=== PATIENT | male | born 1930 | race Caucasian/White ===

== ENCOUNTER 2016-08-11 21:21 | Inpatient (IN) | payer MEDICARE, BC ==
[2016-08-11] MEDS ORDERED: IBUPROFEN IV 600 MG in SODIUM CHLORIDE 0.9% 250 ML IV STA (22:08)
[2016-08-11] MEDS ORDERED: ACETAMINOPHEN TAB 500 MG TAB PO STA (22:08)
--- NOTE | 2016-08-11 22:13 | ED ---
General Adult HPI - General Chief complaint: Abdominal Pain Stated complaint: sent by Time Seen by Provider: 08/11/16 21:25 Source: patient, RN notes reviewed Mode of arrival: wheelchair Limitations: no limitations - History of Present Illness Initial comments: This is a 86-year-old male who presents emergency Department complaining of upper abdominal pain. Patient states he has past medical history significant for a liver abscess back in February. Patient states also when having the chills. Patient's family states she's been having some abdominal pain on and off over the last 5 days but as of yesterday and today it was too much for him to bear. Patient states she's not nauseated has had no vomiting. Patient denies any diarrhea. Patient denies any chest pain palpitations difficulty breathing or shortness of breath. Patient denies any recent cough. Patient denies headache patient denies numbness weakness patient denies any lightheadedness or dizziness. Patient denies any recent injury or trauma. - Related Data Home Medications Medication Instructions Recorded Confirmed Aspirin EC [Ecotrin Low Dose] 81 mg PO DAILY@0900 10/13/14 08/11/16 Cyanocobalamin [Vitamin B-12] 500 mcg PO DAILY@1200 10/13/14 08/11/16 Folic Acid 1 mg PO DAILY@1200 10/13/14 08/11/16 Lisinopril [Zestril] 5 mg PO DAILY 10/13/14 08/11/16 Omeprazole [PriLOSEC] 20 mg PO HS 10/13/14 08/11/16 Ubidecarenone [Co Q-10] 50 mg PO DAILY@1200 10/13/14 08/11/16 Dexter-3 Fatty Acids/Fish Oil [Fish 1 cap PO DAILY@1200 08/24/15 08/11/16 Oil 1,000 mg Softgel] Potassium Chloride ER [K-Dur 20] 20 meq PO DAILY 08/24/15 08/11/16 Levothyroxine Sodium [Synthroid] 75 mcg PO DAILY 02/21/16 08/11/16 metFORMIN HCL 1,000 mg PO DAILY@0900 02/21/16 08/11/16 Fluticasone Nasal [place] [Flonase 2 spray EA NOSTRIL DAILY PRN 03/25/16 08/11/16 Nasal [place]] Loratadine 10 mg PO DAILY@1200 03/25/16 08/11/16 Magnesium Oxide [Mag-Ox] 400 mg PO HS 03/25/16 08/11/16 Tamsulosin [Flomax] 0.4 mg PO HS 03/25/16 08/11/16 Ferrous Sulfate [Feosol] 325 mg PO HS 08/11/16 08/11/16 Gabapentin [Neurontin] 300 mg PO DAILY 08/11/16 08/11/16 Gabapentin [Neurontin] 600 mg PO HS 08/11/16 08/11/16 HYDROcodone/APAP 7.5-325MG [[place] 1 tab PO Q4H 08/11/16 08/11/16 7.5-325] Insulin Aspart [NovoLOG] See Protocol SQ BID 08/11/16 08/11/16 Insulin Glargine [Lantus] 30 unit SQ BID 08/11/16 08/11/16 Metoprolol Tartrate [Lopressor] 25 mg PO HS 08/11/16 08/11/16 Ubidecarenone [Co Q-10] 200 mg PO DAILY@1200 08/11/16 08/11/16 Previous Rx's Medication Instructions Recorded Furosemide [Lasix] 20 mg PO BID@0900,1600 tab 02/26/16 Allergies Allergy/AdvReac Type Severity Reaction Status Date / Time [id number]-Mnt Reductase AdvReac Unknown leg cramps Verified 08/11/16 21:41 Inhibitor Iodinated Contrast Media - AdvReac Unknown Verified 08/11/16 21:41 Oral and [Iodinated Contrast Media - IV Dye] Review of Systems ROS Statement: Those systems with pertinent positive or pertinent negative responses have been documented in the HPI. ROS Other: All systems not noted in ROS Statement are negative. Past Medical History Past Medical History: Cancer, Diabetes Mellitus, GERD/Reflux, Hyperlipidemia, Hypertension, Musculoskeletal Disorder, Osteoarthritis (OA), Sleep Apnea/CPAP/ BIPAP, Thyroid Disorder Additional Past Medical History / Comment(s): C-PAP MACHINE, ENVIRONMENTAL ALLERGIES, HX OF JAUNDICE AT 11 YRS OLD, HX OF MALARIA, BACK PAIN, SKIN CANCER , STATES HERNIA RIGHT GROIN THAT HE PRESSES ON WHEN HE COUGHS., STATES SWELLING IN LEGS AND FEET AND LLE HAS RED AREA. , ANEMIA, USES CANE, STREP THROAT History of Any Multi-Drug Resistant Organisms: None Reported Past Surgical History: Appendectomy, Cholecystectomy, Hernia Repair, Tonsillectomy Additional Past Surgical History / Comment(s): CATARACTS WITH LENS IMPLANT, SKIN CANCER SURG. Past Anesthesia/Blood Transfusion Reactions: No Reported Reaction Past Psychological History: Anxiety, Depression Additional Psychological History / Comment(s): treated for anxiety @ [facility] Smoking Status: Former smoker Past Alcohol Use History: None Reported Additional Past Alcohol Use History / Comment(s): SMOKED FOR APPROX 19 YEARS. 1PPD. QUIT SMOKING AT AGE 34. Past Drug Use History: None Reported - Past Family History Mother Family Medical History: No Reported History Additional Family Medical History / Comment(s): LEUKEMIA Father Additional Family Medical History / Comment(s): WOUNDED IN WW1, MULTIPLE INJURES -LIVED TILL AGE 89 General Exam - General Exam Comments Initial Comments: GENERAL: Patient is well-developed and well-nourished. Patient is nontoxic and well- hydrated and is in mild distress. ENT: Neck is soft and supple. No significant lymphadenopathy is noted. Oropharynx is clear. Moist mucous membranes. Neck has full range of motion without eliciting any pain. EYES: The sclera were anicteric and conjunctiva were pink and moist. Extraocular movements were intact and pupils were equal round and reactive to light. Eyelids were unremarkable. PULMONARY: Unlabored respirations. Good breath sounds bilaterally. No audible rales rhonchi or wheezing was noted. CARDIOVASCULAR: There is a regular rate and rhythm without any murmurs gallops or rubs. Femoral pulses are equal bilaterally ABDOMEN: Mild epigastric tenderness No palpable organomegaly was noted. There is no palpable pulsatile mass. SKIN: Skin is clear with no lesions or rashes and otherwise unremarkable. NEUROLOGIC: Patient is alert and oriented x3. Cranial nerves II through XII are grossly intact. Motor and sensory are also intact. Normal speech, volume and content. Symmetrical smile. MUSCULOSKELETAL: Normal extremities with adequate strength and full range of motion. Bilateral edema. LYMPHATICS: No significant lymphadenopathy is noted PSYCHIATRIC: Normal psychiatric evaluation. Limitations: no limitations Course Vital Signs 08/11/16 08/11/16 08/11/16 21:25 22:08 23:06 Temperature 97.5 F L 101.4 F H 100.1 F H Pulse Rate 101 H 68 82 Respiratory 18 18 18 Rate Blood Pressure 164/75 168/74 133/68 O2 Sat by Pulse 100 98 99 Oximetry Medical Decision Making - Medical Decision Making EKG shows ventricular paced rhythm at 160 bpm QRS 76 QT interval 350 QTC is 585. I spoke with Dr. Hardy he wanted the patient admitted on antibiotics and he wanted to have infectious disease consult. - Lab Data Result diagrams: 08/11/16 22:00 08/11/16 22:00 Lab Results 08/11/16 08/11/16 08/11/16 Range/Units 22:00 22:00 22:00 WBC 9.9 (3.8-10.6) k/uL RBC 3.72 L (4.30-5.90) m/uL Hgb 11.2 L (13.0-17.5) gm/dL Hct 34.8 L (39.0-53.0) % MCV 93.6 (80.0-100.0) fL MCH 30.0 (25.0-35.0) pg MCHC 32.1 (31.0-37.0) g/dL RDW 13.2 (11.5-15.5) % Plt Count 218 (150-450) k/uL Neutrophils % 76 % Lymphocytes % 14 % Monocytes % 7 % Eosinophils % 1 % Basophils % 0 % Neutrophils # 7.5 (1.3-7.7) k/uL Lymphocytes # 1.4 (1.0-4.8) k/uL Monocytes # 0.7 (0-1.0) k/uL Eosinophils # 0.1 (0-0.7) k/uL Basophils # 0.0 (0-0.2) k/uL PT (9.0-12.0) sec INR (<1.1) APTT (22.0-30.0) sec Sodium 136 L (137-145) mmol/L Potassium 5.0 (3.5-5.1) mmol/L Chloride 96 L (98-107) mmol/L Carbon Dioxide 29 (22-30) mmol/L Anion Gap 11 mmol/L BUN 22 H (9-20) mg/dL Creatinine 1.20 (0.66-1.25) mg/dL Est GFR (MDRD) Af Amer >60 (>60 ml/min/1.73 sqM) Est GFR (MDRD) Non-Af 57 (>60 ml/min/1.73 sqM) Glucose 288 H (74-99) mg/dL Plasma Lactic Acid [place] (0.7-2.0) mmol/L Calcium 9.3 (8.4-10.2) mg/dL Total Bilirubin 1.1 (0.2-1.3) mg/dL AST 46 (17-59) U/L ALT 57 (21-72) U/L Alkaline Phosphatase 167 H (38-126) U/L Total Creatine Kinase 49 L (55-170) U/L CK-MB (CK-2) 1.1 (0.0-2.4) ng/mL CK-MB (CK-2) Rel Index 2.2 Troponin I <0.012 (0.000-0.034) ng/mL Total Protein 7.7 (6.3-8.2) g/dL Albumin 3.8 (3.5-5.0) g/dL Cortisol 21 ug/dL Urine Color Urine Appearance (Clear) Urine pH (5.0-8.0) Ur Specific [place] (1.001-1.035) Urine Protein (Negative) Urine Glucose (UA) (Negative) Urine Ketones (Negative) Urine Blood (Negative) Urine Nitrate (Negative) Urine Bilirubin (Negative) Urine Urobilinogen (<2.0) mg/dL Ur Leukocyte Esterase (Negative) Influenza Type A RNA (Not Detectd) Influenza Type B (PCR) (Not Detectd) 08/11/16 08/11/16 08/11/16 Range/Units 22:00 22:00 22:00 WBC (3.8-10.6) k/uL RBC (4.30-5.90) m/uL Hgb (13.0-17.5) gm/dL Hct (39.0-53.0) % MCV (80.0-100.0) fL MCH (25.0-35.0) pg MCHC (31.0-37.0) g/dL RDW (11.5-15.5) % Plt Count (150-450) k/uL Neutrophils % % Lymphocytes % % Monocytes % % Eosinophils % % Basophils % % Neutrophils # (1.3-7.7) k/uL Lymphocytes # (1.0-4.8) k/uL Monocytes # (0-1.0) k/uL Eosinophils # (0-0.7) k/uL Basophils # (0-0.2) k/uL PT (9.0-12.0) sec INR (<1.1) APTT (22.0-30.0) sec Sodium (137-145) mmol/L Potassium (3.5-5.1) mmol/L Chloride (98-107) mmol/L Carbon Dioxide (22-30) mmol/L Anion Gap mmol/L BUN (9-20) mg/dL Creatinine (0.66-1.25) mg/dL Est GFR (MDRD) Af Amer (>60 ml/min/1.73 sqM) Est GFR (MDRD) Non-Af (>60 ml/min/1.73 sqM) Glucose (74-99) mg/dL Plasma Lactic Acid [place] 1.5 (0.7-2.0) mmol/L Calcium (8.4-10.2) mg/dL Total Bilirubin (0.2-1.3) mg/dL AST (17-59) U/L ALT (21-72) U/L Alkaline Phosphatase (38-126) U/L Total Creatine Kinase (55-170) U/L CK-MB (CK-2) (0.0-2.4) ng/mL CK-MB (CK-2) Rel Index Troponin I (0.000-0.034) ng/mL Total Protein (6.3-8.2) g/dL Albumin (3.5-5.0) g/dL Cortisol ug/dL Urine Color Light Yellow Urine Appearance Clear (Clear) Urine pH 5.0 (5.0-8.0) Ur Specific [place] 1.007 (1.001-1.035) Urine Protein Negative (Negative) Urine Glucose (UA) 3+ H (Negative) Urine Ketones Negative (Negative) Urine Blood Negative (Negative) Urine Nitrate Negative (Negative) Urine Bilirubin Negative (Negative) Urine Urobilinogen <2.0 (<2.0) mg/dL Ur Leukocyte Esterase Negative (Negative) Influenza Type A RNA Not Detected (Not Detectd) Influenza Type B (PCR) Not Detected (Not Detectd) 08/11/16 Range/Units 23:02 WBC (3.8-10.6) k/uL RBC (4.30-5.90) m/uL Hgb (13.0-17.5) gm/dL Hct (39.0-53.0) % MCV (80.0-100.0) fL MCH (25.0-35.0) pg MCHC (31.0-37.0) g/dL RDW (11.5-15.5) % Plt Count (150-450) k/uL Neutrophils % % Lymphocytes % % Monocytes % % Eosinophils % % Basophils % % Neutrophils # (1.3-7.7) k/uL Lymphocytes # (1.0-4.8) k/uL Monocytes # (0-1.0) k/uL Eosinophils # (0-0.7) k/uL Basophils # (0-0.2) k/uL PT 10.4 (9.0-12.0) sec INR 1.0 (<1.1) APTT 24.2 (22.0-30.0) sec Sodium (137-145) mmol/L Potassium (3.5-5.1) mmol/L Chloride (98-107) mmol/L Carbon Dioxide (22-30) mmol/L Anion Gap mmol/L BUN (9-20) mg/dL Creatinine (0.66-1.25) mg/dL Est GFR (MDRD) Af Amer (>60 ml/min/1.73 sqM) Est GFR (MDRD) Non-Af (>60 ml/min/1.73 sqM) Glucose (74-99) mg/dL Plasma Lactic Acid [place] (0.7-2.0) mmol/L Calcium (8.4-10.2) mg/dL Total Bilirubin (0.2-1.3) mg/dL AST (17-59) U/L ALT (21-72) U/L Alkaline Phosphatase (38-126) U/L Total Creatine Kinase (55-170) U/L CK-MB (CK-2) (0.0-2.4) ng/mL CK-MB (CK-2) Rel Index Troponin I (0.000-0.034) ng/mL Total Protein (6.3-8.2) g/dL Albumin (3.5-5.0) g/dL Cortisol ug/dL Urine Color Urine Appearance (Clear) Urine pH (5.0-8.0) Ur Specific [place] (1.001-1.035) Urine Protein (Negative) Urine Glucose (UA) (Negative) Urine Ketones (Negative) Urine Blood (Negative) Urine Nitrate (Negative) Urine Bilirubin (Negative) Urine Urobilinogen (<2.0) mg/dL Ur Leukocyte Esterase (Negative) Influenza Type A RNA (Not Detectd) Influenza Type B (PCR) (Not Detectd) Disposition Clinical Impression: Febrile illness, Epigastric abdominal pain Disposition: ADMITTED IP TO THIS [facility] Time of Disposition: 23:31
[2016-08-11 22:24] LABS: Appearance,Urine Clear (Clear); Basophils % (A) 0 %; Bilirubin,Urine Negative (Negative); CH 30.2; CHCM 32.4; Eosinophils # (A) 0.1 k/uL (0-0.7); Eosinophils % (A) 1 %; Glucose,Urine (UA) 3+ (Negative); HCT 34.8 % (39.0-53.0); HDW 2.43; HGB 11.2 gm/dL (13.0-17.5); Ketones,Urine Negative (Negative); Leukocyte Esterase,Urine Negative (Negative); Luc # (Auto) 0.11; Luc % (Auto) 1; Lymphocytes # (A) 1.4 k/uL (1.0-4.8); Lymphocytes % (A) 14 %; MCHC 32.1 g/dL (31.0-37.0); MCV 93.6 fL (80.0-100.0); Mean Platelet Volume 6.8; Monocytes # (A) 0.7 k/uL (0-1.0); Monocytes % (A) 7 %; Neutrophils # (A) 7.5 k/uL (1.3-7.7); Neutrophils % (A) 76 %; Nitrite,Urine Negative (Negative); Protein,Urine Negative (Negative); RBC 3.72 m/uL (4.30-5.90); RDW 13.2 % (11.5-15.5); Specific Gravity,Urine 1.007 (1.001-1.035); UA Billing (MACRO vs. MICRO) CHEM; Urobilinogen,Urine <2.0 mg/dL (<2.0); WBC 9.9 k/uL (3.8-10.6); WBC (Perox) 9.93
[2016-08-11] MEDS: SODIUM CHLORIDE 0.9% 500 ML IV SCH ×2 (22:30→23:00)
[2016-08-11 22:34] LABS: ALT 57 U/L (21-72); AST 46 U/L (17-59); Alkaline Phosphatase 167 U/L (38-126); Anion Gap 11 mmol/L; Blood Urea Nitrogen 22 mg/dL (9-20); Calcium 9.3 mg/dL (8.4-10.2); Carbon Dioxide 29 mmol/L (22-30); Chloride 96 mmol/L (98-107); Glucose 288 mg/dL (74-99); Non-African American GFR(MDRD) 57 (>60 ml/min/1.73 sqM); Sodium 136 mmol/L (137-145); Total Bilirubin 1.1 mg/dL (0.2-1.3); Total Protein 7.7 g/dL (6.3-8.2)
[2016-08-11 22:44] LABS: Creatine Kinase 49 U/L (55-170)
[2016-08-11 22:56] LABS: Creatine Kinase MB 1.1 ng/mL (0.0-2.4); Troponin I <0.012 ng/mL (0.000-0.034)
[2016-08-11 23:18] LABS: Partial Thromboplastin Time 24.2 sec (22.0-30.0); Prothrombin Time 10.4 sec (9.0-12.0)
[2016-08-11] MEDS ORDERED: PIPERACILLIN-TAZOBACTAM 3.375 GM in DEXTROSE/WATER 1 50ML.BAG IVPB STA (23:32)
[2016-08-11] MEDS ORDERED: SODIUM CHLORIDE 0.9% 1,000 ML IV ONE (23:36)
--- NOTE | 2016-08-11 23:55 | XR ---
EXAMINATION TYPE: XR chest 2V DATE OF EXAM: 08/11/2016 10:46 PM COMPARISON: 03/25/2016 HISTORY: Fever history of pacemaker. TECHNIQUE: Frontal and lateral views of the chest are obtained. FINDINGS: Mild pulmonary vascular congestion and chronic lung changes are suggested again without significant i nterval change. No focal pneumonia is noted. There is no pneumothorax or pleural effusion. There is mild cardiomegaly and left-sided pacemaker.. The osseous structures are intact. IMPRESSION: 1. No focal lung consolidation or pneumonia. 2. Chronic lung changes. No significant interval change.
[2016-08-12 00:43] VITALS: BMI 32.8
[2016-08-12] MEDS ORDERED: ACETAMINOPHEN TAB 325 MG TAB PO PRN (01:20)
[2016-08-12] MEDS: HYDROcodone/APAP 7.5-325MG 1 EACH TAB PO PRN ×3 (05:03→21:31)
[2016-08-12 07:22] LABS: Glucose,Whole Blood 164 mg/dL (75-99)
[2016-08-12 07:36] LABS: Hemoglobin A1C 9.7 % (4.2-6.1)
[2016-08-12] MEDS: INSULIN LISPRO (humaLOG) 300 UNIT/3 ML VIAL SQ SCH ×4 (08:00→21:27)
[2016-08-12] MEDS: metFORMIN 500 MG TAB PO SCH (08:00)
[2016-08-12] MEDS: LISINOPRIL 5 MG TAB PO SCH (08:00)
[2016-08-12] MEDS: FUROSEMIDE 20 MG TAB PO SCH ×2 (08:00→15:38)
[2016-08-12] MEDS: GABAPENTIN 300 MG CAP PO SCH ×3 (08:01→21:48)
[2016-08-12] MEDS: POTASSIUM CHLORIDE ER 20 MEQ TAB.ER PO SCH (08:01)
[2016-08-12] MEDS: ASPIRIN 81 MG CHEW PO SCH (08:01)
[2016-08-12] MEDS: LEVOTHYROXINE 75 MCG TAB PO SCH (08:03)
[2016-08-12] MEDS: PIPERACILLIN-TAZOBACTAM 3.375 GM in DEXTROSE/WATER 1 50ML.BAG IVPB SCH ×3 (08:29→23:32)
[2016-08-12] MEDS: INSULIN GLARGINE 100 UNIT/ML 10 ML VIAL SQ SCH ×2 (08:29→21:26)
[2016-08-12] MEDS ORDERED: IOHEXOL 350 MG/ML 25 ML BOTTLE (ORAL USE) PO PRN (09:02)
[2016-08-12] MEDS ORDERED: RX INFO: IV CONTRAST WAS GIVEN 1 EACH MISC MISCELLANE PRN ×2 (09:02→09:22)
[2016-08-12] MEDS ORDERED: MORPHINE SULFATE 2 MG/ML SYRINGE IVP PRN (09:08)
[2016-08-12] MEDS ORDERED: ONDANSETRON 4 MG/2 ML VIAL IVP PRN (09:21)
[2016-08-12] MEDS ORDERED: FAMOTIDINE 20 MG/2 ML VIAL IV ONE (09:41)
[2016-08-12] MEDS ORDERED: methylPREDNISolone SOD SUCCI 125 MG/2 ML VIAL IV ONE (09:41)
[2016-08-12] MEDS ORDERED: diphenhydrAMINE 50 MG/ML 1 ML VIAL IVP ONE (09:41)
--- NOTE | 2016-08-12 09:51 | P.PN ---
Subjective 86-year-old male presented on the day of admission to the emergency room on August 11 with a chief complaint of developing upper abdominal pain. Patient stated the pain he points to the epigastric region had been ongoing for the past several days but over the last 24 hours became too intense could not bear the pain was interfering with activities of daily living. Patient stated he had a nausea sensation but no active emesis. Denied any change in bowel habits denied any loose stools blood in stool or constipation issues. Additionally patient denied any heart palpitations chest pain or shortness of breath. Patient denied any recent illness. Denied any recent trauma. Patient stated that his symptoms feel similar to when he was told he had an abscess in his liver in February 2016 patient is a poor historian did note the liver enzymes are not markedly elevated the AST is 46 ALT 57 alk phos 167. In the total bili 1.1. The white count 9. Patient does report having a nausea sensation there is no active emesis. Did review the report 02/23/2016 the CAT scan with oral contrast did show a low density liver mass slightly smaller compared to a prior exam patient states he has not been hospitalized recently. His last hospitalization was in February 2016 at that time patient was treated for generalized weakness. Additionally on 02/24/2016 the patient did have a percutaneous drainage and biopsy of the left lobe of the liver Currently the patient is sitting up on the edge of the bed is indicating that he is having "a lot of pain in the epigastric area when he had pain makes my handshake patient is having visual shaking noted to the hands bilaterally patient states when he gets and pain causes his hands to shake. Questioned patient about his iodine reaction patient states it causes his hands to shake Gastroneurology consultation an infectious disease consultation has been requested Objective - Vital Signs Vital signs: Vital Signs Temp 97.7 F 08/12/16 01:05 Pulse 67 08/12/16 01:05 Resp 16 08/12/16 01:05 BP 126/53 08/12/16 01:05 Pulse Ox 98 08/12/16 01:05 Intake & Output 08/11/16 08/12/16 08/12/16 18:59 06:59 18:59 Weight 109.7 kg Other: Voiding Method Toilet # Voids 1 - Exam Physical exam 86-year-old male sitting on the edge of the bed with hands are trembling patient states having "pain in my abdomen points to the epigastric area causes my hands to tremor reports a sensation of nausea no active emesis oriented 3 awake and alert Lungs diminished at the bases otherwise adequate air movement sats 99% on room air Heart S1-S2 audible and regular currently denying heart palpitations or chest pain Abdomen soft not distended diffuse tenderness across the abdominal wall reports nausea sensation no active emesis no stooling no difficulty in urinating Extremities no edema noted - Labs CBC & Chem 7: 08/11/16 22:00 08/11/16 22:00 Labs: Abnormal Lab Results - Last 24 Hours (Table) 08/12/16 Range/Units 07:20 POC Glucose (mg/dL) 164 H (75-99) mg/dL Assessment and Plan Plan: Impression Present on admission febrile temp 101.4 with mild leukocytosis unclear etiology Present on admission epigastric pain with nausea febrile leukocytosis unclear etiology History of a liver abscess status post percutaneous drainage and biopsy left lobe of the liver for hepatic lesion done 02/24/2016 Chronically debilitated with gait imbalance Cognitive impairment suspect dementia duration undetermined with no behavior disturbance History of sleep apnea with CPAP support Chronic back pain narcotic dependent Chronic lower back pain Anxiety disorder nonspecified Obesity BMI 32 Type 2 diabetes insulin requiring uncontrolled hemoglobin A1c 9.7 History of Klebsiella pneumonia bacteremia February 2016 resolved Plan Consult gastroenterology service Consult Dr. Walters recommendations antibiotic Resume home meds as appropriate CAT scan with oral and IV contrast abdomen and pelvis as part of the workup for hepatic lesion rule out abscess Follow up on blood and urine cultures Continue IV antibiotics until seen by infectious disease DVT and GI prophylaxis Pain control IV fluid as ordered Zofran as needed The above dictated assessment and findings were discussed with dr erazo Impression and the plan of care have been dictated as directed. Adore Hightower nurse practitioner acting as a scribe for dr erazo
[2016-08-12] MEDS: FLUTICASONE 50MCG/SPRAY NASAL 16GM EA NOSTRIL PRN (10:10)
[2016-08-12] MEDS: ALPRAZolam 0.5 MG TAB PO PRN ×2 (10:11→21:26)
[2016-08-12 11:05] LABS: Basophils % (A) 0 %; CH 30.3; CHCM 32.4; Eosinophils % (A) 0 %; HDW 2.39; HGB 10.6 gm/dL (13.0-17.5); Luc # (Auto) 0.11; Luc % (Auto) 1; Lymphocytes # (A) 0.8 k/uL (1.0-4.8); Lymphocytes % (A) 7 %; MCH 30.1 pg (25.0-35.0); MCHC 32.1 g/dL (31.0-37.0); MCV 93.8 fL (80.0-100.0); Mean Platelet Volume 6.5; Monocytes % (A) 9 %; Neutrophils # (A) 9.3 k/uL (1.3-7.7); Neutrophils % (A) 82 %; RBC 3.52 m/uL (4.30-5.90); RDW 13.3 % (11.5-15.5); WBC 11.2 k/uL (3.8-10.6); WBC (Perox) 12.13
[2016-08-12] MEDS: HEPARIN SODIUM,PORCINE 5,000 UNIT/ML 1 ML VIAL SQ SCH ×3 (11:14→23:29)
[2016-08-12] MEDS: FAMOTIDINE 20 MG/2 ML VIAL IV SCH ×2 (11:15→22:09)
[2016-08-12 11:16] LABS: ALT 59 U/L (21-72); AST 40 U/L (17-59); Alkaline Phosphatase 151 U/L (38-126); Amylase <30 U/L (30-110); Anion Gap 9 mmol/L; Blood Urea Nitrogen 19 mg/dL (9-20); Calcium 8.7 mg/dL (8.4-10.2); Carbon Dioxide 27 mmol/L (22-30); Chloride 101 mmol/L (98-107); Glucose 160 mg/dL (74-99); Non-African American GFR(MDRD) >60 (>60 ml/min/1.73 sqM); Potassium 4.6 mmol/L (3.5-5.1); Sodium 137 mmol/L (137-145); Total Bilirubin 2.2 mg/dL (0.2-1.3); Total Protein 6.6 g/dL (6.3-8.2)
--- NOTE | 2016-08-12 11:55 | P.CONS ---
History of Present Illness - Reason for Consult Consult date: 08/12/16 possible liver abscess Requesting physician: Lazaro Bailey - History of Present Illness 86-year-old gentleman patient Dr. Bailey with a past medical history of malaria, skin carcinoma, cholelithiasis status post cholecystectomy, open ventral hernia repair, diabetes mellitus, hypertension, appendectomy, sleep apnea, anxiety, and depression. Admitted with fever T-max 101.4. Patient was hospitalized in February 2016 for suspected Klebsiella left hepatic lobe liver abscess treated with antibiotics and percutaneous intervention was not performed at that time. He was hospitalized at [facility] prior to that admission with gram-negative Klebsiella bacteremia. Consultation requested for possible liver abscess. No abdominal imaging to review at time of this dictation. LFTs within normal limits on admission. Currently total bilirubin 2.2. AST 40. ALT 59. Alkaline phosphates 151. Lipase 26. White count 9.9 on admission currently 11.2. Reports mild abdominal discomfort in the midepigastric right upper quadrant region. Denies chest pain or shortness of breath. Review of Systems Constitutional: Denies fever, chills, sweats, weight gain, or loss. HEENT: Negative for migraines, blurred vision or loss, earaches, drainage, tinnitus, oral mucosal lesions, dysphagia, or odynophagia. Cardiac: Hypertension. Hyperlipidemia. Negative for chest pain, arrhythmias, or palpitation. Respiratory: Negative for shortness of breath, hemoptysis, cough, or sputum production. Gastrointestinal: See HPI for pertinent findings. Genitourinary: Negative for hematuria, urgency, frequency, polyuria, dysuria, or penile discharge. Musculoskeletal: Negative for muscle aches, swelling, arthritis, and arthralgias. Neurologic: Negative for stroke or TIA. Endocrine: Diabetes mellitus. Negative for thyroid problems. Skin: Negative for rash or itching. Skin carcinoma. Psychiatric: History for depression and anxiety. Hematology: Malaria. All systems: negative (See HPI) Past Medical History Past Medical History: Cancer, Diabetes Mellitus, GERD/Reflux, Hyperlipidemia, Hypertension, Musculoskeletal Disorder, Osteoarthritis (OA), Sleep Apnea/CPAP/ BIPAP, Thyroid Disorder Additional Past Medical History / Comment(s): C-PAP MACHINE, ENVIRONMENTAL ALLERGIES, HX OF JAUNDICE AT 11 YRS OLD, HX OF MALARIA, BACK PAIN, SKIN CANCER , STATES HERNIA RIGHT GROIN THAT HE PRESSES ON WHEN HE COUGHS., STATES SWELLING IN LEGS AND FEET AND LLE HAS RED AREA. , ANEMIA, USES CANE, STREP THROAT History of Any Multi-Drug Resistant Organisms: None Reported Past Surgical History: Appendectomy, Cholecystectomy, Hernia Repair, Tonsillectomy Additional Past Surgical History / Comment(s): CATARACTS WITH LENS IMPLANT, SKIN CANCER SURG. Past Anesthesia/Blood Transfusion Reactions: No Reported Reaction Past Psychological History: Anxiety, Depression Additional Psychological History / Comment(s): treated for anxiety @ [facility] Smoking Status: Former smoker Past Alcohol Use History: None Reported Additional Past Alcohol Use History / Comment(s): SMOKED FOR APPROX 19 YEARS. 1PPD. QUIT SMOKING AT AGE 34. Past Drug Use History: None Reported - Past Family History Mother Family Medical History: No Reported History Additional Family Medical History / Comment(s): LEUKEMIA Father Additional Family Medical History / Comment(s): WOUNDED IN WW1, MULTIPLE INJURES -LIVED TILL AGE 89 Medications and Allergies Home Medications Medication Instructions Recorded Confirmed Type Aspirin EC [Ecotrin Low Dose] 81 mg PO DAILY@0900 10/13/14 08/11/16 History Cyanocobalamin [Vitamin B-12] 500 mcg PO DAILY@1200 10/13/14 08/11/16 History Folic Acid 1 mg PO DAILY@1200 10/13/14 08/11/16 History Lisinopril [Zestril] 5 mg PO DAILY 10/13/14 08/11/16 History Omeprazole [PriLOSEC] 20 mg PO HS 10/13/14 08/11/16 History Ubidecarenone [Co Q-10] 50 mg PO DAILY@1200 10/13/14 08/11/16 History Raymond-3 Fatty Acids/Fish Oil [Fish 1 cap PO DAILY@1200 08/24/15 08/11/16 History Oil 1,000 mg Softgel] Potassium Chloride ER [K-Dur 20] 20 meq PO DAILY 08/24/15 08/11/16 History Levothyroxine Sodium [Synthroid] 75 mcg PO DAILY 02/21/16 08/11/16 History metFORMIN HCL 1,000 mg PO DAILY@0900 02/21/16 08/11/16 History Fluticasone Nasal [place] [Flonase 2 spray EA NOSTRIL DAILY PRN 03/25/16 08/11/16 History Nasal [place]] Loratadine 10 mg PO DAILY@1200 03/25/16 08/11/16 History Magnesium Oxide [Mag-Ox] 400 mg PO HS 03/25/16 08/11/16 History Tamsulosin [Flomax] 0.4 mg PO HS 03/25/16 08/11/16 History Ferrous Sulfate [Feosol] 325 mg PO HS 08/11/16 08/11/16 History Gabapentin [Neurontin] 300 mg PO DAILY 08/11/16 08/11/16 History Gabapentin [Neurontin] 600 mg PO HS 08/11/16 08/11/16 History HYDROcodone/APAP 7.5-325MG [[place] 1 tab PO Q4H 08/11/16 08/11/16 History 7.5-325] Insulin Aspart [NovoLOG] See Protocol SQ BID 08/11/16 08/11/16 History Insulin Glargine [Lantus] 30 unit SQ BID 08/11/16 08/11/16 History Metoprolol Tartrate [Lopressor] 25 mg PO HS 08/11/16 08/11/16 History Ubidecarenone [Co Q-10] 200 mg PO DAILY@1200 08/11/16 08/11/16 History Allergies Allergy/AdvReac Type Severity Reaction Status Date / Time Chwbicp-Pop-Qub Reductase AdvReac Unknown leg cramps Verified 08/12/16 00:52 Inhibitor Iodinated Contrast Media - AdvReac Unknown Verified 08/12/16 00:52 Oral and [Iodinated Contrast Media - IV Dye] Physical Exam Vitals: Vital Signs Temp Pulse Pulse Resp BP BP Pulse Ox 08/12/16 07:00 97 F L 87 18 147/58 99 08/12/16 01:05 97.7 F 67 16 126/53 98 08/11/16 23:49 99.4 F 70 18 103/51 98 Intake and Output 08/11/16 08/12/16 08/12/16 22:59 06:59 14:59 Other: Voiding Method Toilet # Voids 1 Weight 109.7 kg General appearance: The patient is alert, oriented, in no acute distress. HET: Head is normocephalic and atraumatic. Bandaged to head without drainage. Pupils are equal and reactive. Oropharynx is clear without lesions. Neck: Supple without lymphadenopathy. Trachea midline. Heart: S1 S2. Regular rate and rhythm. Lungs: No crackles or wheezes are heard. Abdomen: Soft, mild tenderness midepigastric right upper quadrant, nondistended with bowel sounds. No peritoneal signs. No palpable organomegaly or masses. Extremities: Normal skin color and turgor. No cyanosis, rash, ulceration, clubbing, or edema. Radial and pedal pulses are 2/4 bilaterally. Neurological: No focal deficits. Strength and sensation are grossly intact. Results CBC & Chem 7: 08/12/16 10:22 08/12/16 10:22 Labs: Abnormal Lab Results - Last 24 Hours (Table) 08/12/16 08/12/16 08/12/16 Range/Units 07:20 10:22 10:22 WBC 11.2 H (3.8-10.6) k/uL RBC 3.52 L (4.30-5.90) m/uL Hgb 10.6 L (13.0-17.5) gm/dL Hct 33.0 L (39.0-53.0) % Neutrophils # 9.3 H (1.3-7.7) k/uL Lymphocytes # 0.8 L (1.0-4.8) k/uL Glucose 160 H (74-99) mg/dL POC Glucose (mg/dL) 164 H (75-99) mg/dL Total Bilirubin 2.2 H (0.2-1.3) mg/dL Alkaline Phosphatase 151 H (38-126) U/L Albumin 3.2 L (3.5-5.0) g/dL Amylase <30 L (30-110) U/L CT scan - abdomen: pending CT scan - pelvis: pending Assessment and Plan (1) Pyrexia Narrative/Plan: 86-year-old gentleman with a history of left hepatic lobe liver abscess February 2016 presents with pyrexia, midepigastric right upper quadrant discomfort with elevation of liver enzymes and hyperbilirubinemia possible recurrence of liver abscess however other pathology cannot be entirely excluded. Status: Acute Plan: 1. CT abdomen and pelvis scheduled at 4:00pm. 2. Infectious disease consultation with IV antibiotics. Blood cultures. 3. Monitoring of liver chemistries. Hepatitis panel. 4. Will follow with you. Thank you for this kind referral and the opportunity to participate in the care of your patient. This consultation was discussed with Dr. Stapleton. The impression and plan of care have been directed as dictated.
[2016-08-12] MEDS ORDERED: NON-FORMULARY DRUG (Ubidecarenone [Co Q-10] 50 MG) PO SCH (12:00)
[2016-08-12] MEDS ORDERED: NON-FORMULARY DRUG (Omega-3 Fatty Acids/Fish Oil [Fish Oil 1,000 Mg Softgel] 1 CAP) PO SCH (12:00)
[2016-08-12] MEDS ORDERED: NON-FORMULARY DRUG (Ubidecarenone [Co Q-10] 200 MG) PO SCH (12:00)
[2016-08-12] MEDS: CYANOCOBALAMIN 500 MCG TAB PO SCH (12:10)
[2016-08-12] MEDS: LORATADINE 10 MG TAB PO SCH (12:10)
[2016-08-12] MEDS: FOLIC ACID 1 MG TAB PO SCH (12:10)
[2016-08-12] MEDS: BARIUM SULFATE 450 ML ORAL.SUSP BOTTLE PO PRN ×2 (12:12→15:04)
[2016-08-12 12:19] LABS: Glucose,Whole Blood 197 mg/dL (75-99)
[2016-08-12 14:25] LABS: Hepatitis B Surface Ag Index 0.05
[2016-08-12 14:30] LABS: Hepatitis B Core IgM Index 0.04
[2016-08-12 14:42] LABS: Hepatitis C Virus IgG Index 0.11
[2016-08-12 14:48] LABS: Hepatitis C Virus IgG Ab Negative (Negative)
--- NOTE | 2016-08-12 16:41 | CT ---
EXAMINATION TYPE: CT abdomen pelvis w con DATE OF EXAM: 08/12/2016 4:30 PM COMPARISON: 03/25/2016 HISTORY: Evaluate liver abscess. Generalized abdominal pain CT DLP: 1897.00 mGycm CONTRAST: CT scan of the abdomen and pelvis is performed with Oral Contrast and with IV Contrast, patient injec mariana with 100 mL of Omnipaque 300. FINDINGS: LUNG BASES-: No visible nodule. No infiltrate. LIVER/GB: Area of abnormal poorly marginated decreased attenuation within the left hepatic lobe persi sts although appears to be smaller in size and measures 3.7 x 2.4 cm with maximal dimension previousl y of 6 cm. No additional areas of abnormal attenuation identified. The gallbladder is surgically abse nt. PANCREAS: Changes of chronic pancreatitis noted. SPLEEN: No splenic enlargement. No lesion seen. ADRENALS: No nodule. No thickening. KIDNEYS/BLADDER: Renal atrophic changes again noted. No hydronephrosis. No nephrolithiasis. No disc tinct renal mass. Urinary bladder grossly unremarkable. BOWEL: Normal appendix. Normal bowel caliber. No inflammation. Sigmoid diverticulosis without diver ticulitis. GENITAL ORGANS: No gross abnormality. LYMPH NODES: No greater than 1cm abdominal or pelvic lymph nodes are appreciated. AORTA: Atheromatous changes abdominal aorta without aneurysm. OSSEOUS STRUCTURES: Severe degenerative change lumbar spine. OTHER: No significant additional abnormality is seen. IMPRESSION: 1. Area of abnormal poorly marginated decreased attenuation within the left hepatic lobe persists alt anastasiya appears to be smaller in size and measures 3.7 x 2.4 cm with maximal dimension previously of 6 cm. This may reflect improving liver abscess. 2. Changes of chronic pancreatitis.
[2016-08-12 17:09] LABS: Glucose,Whole Blood 329 mg/dL (75-99)
--- NOTE | 2016-08-12 18:01 | HP ---
DATE OF ADMISSION: 08/12/2016 CHIEF COMPLAINT: An 86-year-old white male who has past medical history of malaria, skin carcinoma, cholecystitis, status post cholecystectomy, open ventral hernia repair, diabetes mellitus, hypertension, had fevers and rigors at home, unable to control his shaking. Temperature 101.4. He states he has the same similar problem in February 2016 when he had a left hepatic lobe liver abscess at which time he was treated with IV antibiotics and he said this was a similar recurrence and unable to control his shaking, and ( ) fevers at home for an outpatient treatment with antibiotics. CAT scan on admission does show liver abscess at this time 4 cm in diameter, lipase 26. He is having abdominal pain in the right upper quadrant of his abdomen also on this admission. No chest pain or shortness of breath. Fourteen-point review of systems is negative except for psychiatric anxiety, depression. SKIN: He has skin carcinoma on the scalp. ENDOCRINE: His BMI is over 40. History of diabetes mellitus. NEUROLOGIC: Negative for stroke. MUSCULOSKELETAL: Negative. : Negative. PAST MEDICAL HISTORY: Cancer, diabetes mellitus, GERD, dyslipidemia, hypertension, osteoarthritis, obstructive sleep apnea, Hypothyroidism. CPAP, skin cancer as mentioned and anemia. Appendectomy, cholecystectomy, hernia repair, tonsillectomy, cataract surgery, anxiety, depression. He is a former, quit smoking at age 34. PAST FAMILY HISTORY: Mom had leukemia. Father wounded in World War I. Home medications include: 1. Zestril 5 mg daily. 2. Prevacid 20 mg daily. 3. Potassium chloride 20 mEq daily. 4. Levothyroxine 75 mcg daily. 5. Metformin 1000 daily. 6. Fluticasone nasal spray daily. 7. Loratadine 10 daily. 8. Mag oxide 400 daily. 9. Flomax 0.4 daily. 10. Feosol 325 mg daily. 11. Neurontin 600 mg q.h.s. 300 in the morning. 12. Hydrocodone/APAP 7.5 every 4 hours. 13. Lantus 30 units subcu b.i.d. 14. Metoprolol 125 mg daily. 15. Co-Q10 200 mg daily. PHYSICAL EXAM: T-max 101, Temperature now is 97, blood pressure 140s to 120s lowest is 103/51, pulse rate is 60s to 80s, respiratory rate 16 to 18. GENERAL: He is appears, shaking with tremors and rigors with some sweating on his skin. NECK: Supple. No mass. HEART: S1, S2. LUNGS: Show scattered wheeze, decreased breath sounds. ABDOMEN: Distended due to obesity, and right upper quadrant tenderness guarding. No rebound. EXTREMITIES: No cyanosis, clubbing, edema. NEUROLOGIC: Alert and oriented x3. White count is 11.2, hemoglobin 10.4, sodium 137, potassium 4.6. CAT scan shows liver abscess. ASSESSMENT: 1. Fever and chills, rigors suspect sepsis, secondary to hepatic abscess, which was seen on CAT scan, hepatic abscess. Otherwise other multiple medical conditions include: 2. Hypertension. 3. Diabetes mellitus. 4. Hypothyroidism. Continue with IV antibiotics. Possible radiology, drainage of hepatic abscess and continue with IV antibiotics. Rule out sepsis with blood cultures.
[2016-08-12] MEDS: PANTOPRAZOLE 40 MG TABLET PO SCH (21:44)
[2016-08-12 21:48] LABS: Glucose,Whole Blood 323 mg/dL (75-99)
[2016-08-12] MEDS: TAMSULOSIN 0.4 MG CAP.ER.24H PO SCH (21:48)
[2016-08-12] MEDS: METOPROLOL TARTRATE 25 MG TAB PO SCH (21:48)
[2016-08-12] MEDS: FERROUS SULFATE 325 MG TAB PO SCH (21:48)
[2016-08-12] MEDS: MAGNESIUM OXIDE 400 MG TAB PO SCH (21:48)
[2016-08-13] MEDS: HYDROcodone/APAP 7.5-325MG 1 EACH TAB PO PRN ×4 (06:21→21:22)
[2016-08-13 06:52] LABS: Glucose,Whole Blood 323 mg/dL (75-99)
[2016-08-13] MEDS: HEPARIN SODIUM,PORCINE 5,000 UNIT/ML 1 ML VIAL SQ SCH ×2 (08:05→15:12)
[2016-08-13] MEDS: FAMOTIDINE 20 MG/2 ML VIAL IV SCH ×2 (08:05→20:30)
[2016-08-13] MEDS: PIPERACILLIN-TAZOBACTAM 3.375 GM in DEXTROSE/WATER 1 50ML.BAG IVPB SCH ×2 (08:06→15:11)
[2016-08-13] MEDS: INSULIN LISPRO (humaLOG) 300 UNIT/3 ML VIAL SQ SCH ×4 (08:06→21:16)
[2016-08-13 09:15] LABS: Basophils % (A) 0 %; CH 30.1; CHCM 31.8; Eosinophils % (A) 0 %; HCT 34.2 % (39.0-53.0); HDW 2.43; HGB 10.7 gm/dL (13.0-17.5); Luc % (Auto) 1; Lymphocytes # (A) 0.9 k/uL (1.0-4.8); Lymphocytes % (A) 9 %; MCH 29.7 pg (25.0-35.0); MCHC 31.3 g/dL (31.0-37.0); MCV 94.9 fL (80.0-100.0); Monocytes # (A) 0.5 k/uL (0-1.0); Monocytes % (A) 4 %; Neutrophils # (A) 9.3 k/uL (1.3-7.7); Neutrophils % (A) 86 %; RDW 13.1 % (11.5-15.5); WBC 10.8 k/uL (3.8-10.6); WBC (Perox) 11.36
[2016-08-13] MEDS: INSULIN GLARGINE 100 UNIT/ML 10 ML VIAL SQ SCH ×2 (09:17→21:19)
[2016-08-13] MEDS: GABAPENTIN 300 MG CAP PO SCH ×2 (09:22→20:31)
[2016-08-13] MEDS: LEVOTHYROXINE 75 MCG TAB PO SCH (09:22)
[2016-08-13] MEDS: metFORMIN 500 MG TAB PO SCH (09:22)
[2016-08-13] MEDS: ASPIRIN 81 MG CHEW PO SCH (09:22)
[2016-08-13] MEDS: POTASSIUM CHLORIDE ER 20 MEQ TAB.ER PO SCH (09:23)
[2016-08-13] MEDS: LISINOPRIL 5 MG TAB PO SCH (09:23)
[2016-08-13] MEDS: FUROSEMIDE 20 MG TAB PO SCH ×2 (09:23→15:11)
[2016-08-13 09:38] LABS: ALT 61 U/L (21-72); AST 41 U/L (17-59); Alkaline Phosphatase 151 U/L (38-126); Anion Gap 12 mmol/L; Blood Urea Nitrogen 28 mg/dL (9-20); Calcium 9.1 mg/dL (8.4-10.2); Carbon Dioxide 26 mmol/L (22-30); Chloride 98 mmol/L (98-107); Glucose 302 mg/dL (74-99); Non-African American GFR(MDRD) 50 (>60 ml/min/1.73 sqM); Potassium 4.5 mmol/L (3.5-5.1); Sodium 136 mmol/L (137-145); Total Protein 6.7 g/dL (6.3-8.2)
--- NOTE | 2016-08-13 09:42 | CONS ---
DATE OF CONSULTATION: 08/12/2016 REASON FOR CONSULTATION: Fever and a question of liver abscess. HISTORY OF PRESENT ILLNESS: The patient is an 86 -year-old male well known to my service. Previously evaluated at [facility] where the patient did have evidence of Klebsiella bacteremia and subsequent diagnosed with left lobe liver abscess. He did have aspirate of the same while he was on antibiotics. All those cultures were negative. The patient was treated with more than 6 weeks of IV antibiotic therapy and about 2 months of oral antibiotic therapy. However, the patient was lost to follow. Patient is now being brought into the [facility] ER with chief complaints of off and on abdominal pain and getting worse for the last 5 days. The patient with chief complaints of pain in the mid abdomen area, some nausea but no vomiting and rhythm and also started having a fever. With these symptoms, the patient was evaluated by the ER physician. The patient did have a fever 101.4 degrees Fahrenheit down in the ER. The patient did have a normal white count of yesterday of 9.9, however, it is up to 11.2 today. The patient liver enzymes normal except alkaline phosphatase slightly elevated. Patient did have a chest x-ray was negative for any pneumonia and subsequently, the patient did have CT of abdomen and pelvis with contrast, which did show abscess in the left upper lobe that improved to 3.7 x 4 cm with maximum diameter previously of 6 cm which is improving. The patient was started on Zosyn. I was asked to see the patient for further recommendation regarding antibiotic therapy. REVIEW OF SYSTEMS: CONSTITUTIONAL: Positive for weakness along with fever. EYES: No complaint. ENT: No complaint. RESPIRATORY: No complaint. CARDIOVASCULAR: No complaint. GENITOURINARY: No complaint. GASTROINTESTINAL: As per HPI. MUSCULOSKELETAL: No complaint. INTEGUMENTARY: No complaint. PSYCHOLOGICAL: No complaint. ENDOCRINE: No complaint. NEUROLOGICAL: No complaint. Past medical history significant for Klebsiella bacteremia thought to be secondary to liver abscess. History of diabetes mellitus, gastroesophageal reflux disease, hyperlipidemia, hypertension, osteoarthritis, hypothyroidism, sleep apnea. PAST SURGICAL HISTORY: Appendectomy, cholecystectomy, hernia repair and tonsillectomy and drainage of the liver abscess. SOCIAL HISTORY: Remote history of smoking. No drinking or drug use. FAMILY HISTORY: Mother has history of leukemia. Father with history of multiple injuries in World War II, lived to be . ALLERGIES INCLUDING TO IV CONTRAST MEDIA AND RADHA INHIBITOR. Medications include the patient is on: 1. Tylenol. 2. [place]. 3. Xanax. 4. Aspirin. 5. Vitamin B12. 6. Pepcid. 7. Iron sulfate. 8. Flonase. 9. Folic acid. 10. Lasix. 11. Neurontin. 12. Heparin. 13. Lantus. 14. Humalog. 15. Synthroid. 16. Zestril. 17. Claritin. 18. Mag oxide. 19. Glucophage. 20. Lopressor. 21. Zofran. 22. Protonix. 23. Piptazobactam. 24. Flomax. On examination, blood pressure is 103/47, pulse of 52, temperature 98.1, T-max is 101. He is 94% on room air. General description is an elderly male, lying in bed in no distress. No tachypnea or accessory muscles of respiration use. HEENT examination shows pallor. There is no scleral icterus. Oral mucous membranes dry. NECK: Trachea central, no thyromegaly. LUNGS: Unlabored breathing. Clear to auscultation anteriorly. HEART: S1, S2. Regular rate and rhythm. ABDOMEN: Soft. No tenderness. No guarding or rigidity. EXTREMITIES: No edema of the feet. SKIN EXAMINATION: No rash or mass palpable. NEUROLOGICAL: The patient is awake, alert, oriented x3. Mood and affect normal. LABS: Hemoglobin is 10.6, white count 11.2 with a BUN of 19, creatinine 1.10. Electrolytes have been normal. Blood cultures obtained and urine which currently pending. DIAGNOSTIC IMPRESSION AND PLAN: Patient admitted to the hospital with sepsis in a patient who did have a fever and elevated white count. Source is likely liver abscess that has failed to respond to the extensive IV as well as oral antibiotic therapy would likely need to be drained in order to completely clear up this infection. PLAN: 1. Recommend obtaining drainage of this abscess, which if not possible, would recommend a general surgical service possible, laparoscopic drainage of this abscess. 2. Cultures should be obtained both aerobic and anaerobic at time of drainage of this abscess. 3. Zosyn 3.375 grams, q8 hours. 4. Will follow up on the clinical condition and cultures to further adjust the medication if needed. Thank you for this consultation. We will follow this patient along with you. KIM
[2016-08-13 12:23] LABS: Glucose,Whole Blood 318 mg/dL (75-99)
[2016-08-13] MEDS: FOLIC ACID 1 MG TAB PO SCH (12:47)
[2016-08-13] MEDS: LORATADINE 10 MG TAB PO SCH (12:47)
[2016-08-13] MEDS: CYANOCOBALAMIN 500 MCG TAB PO SCH (12:47)
[2016-08-13] MEDS ORDERED: TETRAHYDROZOLINE 0.05% OPHTH DROPS 15 ML BTL BOTH EYES PRN ×2 (16:10→16:15)
[2016-08-13 17:08] LABS: Glucose,Whole Blood 223 mg/dL (75-99)
[2016-08-13] MEDS: FLUTICASONE 50MCG/SPRAY NASAL 16GM EA NOSTRIL PRN (17:34)
[2016-08-13] MEDS: TAMSULOSIN 0.4 MG CAP.ER.24H PO SCH (20:31)
[2016-08-13] MEDS: METOPROLOL TARTRATE 25 MG TAB PO SCH (20:31)
[2016-08-13] MEDS: MAGNESIUM OXIDE 400 MG TAB PO SCH (20:31)
[2016-08-13] MEDS: PANTOPRAZOLE 40 MG TABLET PO SCH (20:31)
[2016-08-13] MEDS: FERROUS SULFATE 325 MG TAB PO SCH (20:31)
[2016-08-13] MEDS: ALPRAZolam 0.5 MG TAB PO PRN (21:22)
[2016-08-13 21:26] LABS: Glucose,Whole Blood 232 mg/dL (75-99)
[2016-08-14] MEDS: HEPARIN SODIUM,PORCINE 5,000 UNIT/ML 1 ML VIAL SQ SCH ×4 (00:17→22:43)
[2016-08-14] MEDS: PIPERACILLIN-TAZOBACTAM 3.375 GM in DEXTROSE/WATER 1 50ML.BAG IVPB SCH ×4 (00:17→23:27)
[2016-08-14] MEDS: HYDROcodone/APAP 7.5-325MG 1 EACH TAB PO PRN ×5 (02:57→21:10)
[2016-08-14 07:18] LABS: Glucose,Whole Blood 84 mg/dL (75-99)
[2016-08-14] MEDS: INSULIN LISPRO (humaLOG) 300 UNIT/3 ML VIAL SQ SCH ×4 (07:52→21:12)
[2016-08-14] MEDS: FAMOTIDINE 20 MG/2 ML VIAL IV SCH ×2 (07:53→21:10)
[2016-08-14] MEDS: INSULIN GLARGINE 100 UNIT/ML 10 ML VIAL SQ SCH ×2 (08:17→21:12)
[2016-08-14] MEDS: POTASSIUM CHLORIDE ER 20 MEQ TAB.ER PO SCH (08:18)
[2016-08-14] MEDS: LISINOPRIL 5 MG TAB PO SCH (08:18)
[2016-08-14] MEDS: metFORMIN 500 MG TAB PO SCH (08:19)
[2016-08-14] MEDS: FUROSEMIDE 20 MG TAB PO SCH ×2 (08:19→15:13)
[2016-08-14] MEDS: ASPIRIN 81 MG CHEW PO SCH (08:19)
[2016-08-14] MEDS: LEVOTHYROXINE 75 MCG TAB PO SCH (08:19)
[2016-08-14] MEDS: GABAPENTIN 300 MG CAP PO SCH ×2 (08:19→21:10)
[2016-08-14 08:40] LABS: Basophils % (A) 0 %; CH 30.3; CHCM 32.4; Eosinophils # (A) 0.2 k/uL (0-0.7); Eosinophils % (A) 2 %; HDW 2.56; HGB 11.2 gm/dL (13.0-17.5); Luc # (Auto) 0.16; Luc % (Auto) 2; Lymphocytes # (A) 2.5 k/uL (1.0-4.8); Lymphocytes % (A) 27 %; MCH 30.1 pg (25.0-35.0); Mean Platelet Volume 6.8; Monocytes # (A) 0.7 k/uL (0-1.0); Monocytes % (A) 8 %; Neutrophils # (A) 5.6 k/uL (1.3-7.7); Neutrophils % (A) 61 %; RBC 3.72 m/uL (4.30-5.90); RDW 13.2 % (11.5-15.5); WBC 9.2 k/uL (3.8-10.6); WBC (Perox) 9.16
[2016-08-14 08:52] LABS: Calcium 9.2 mg/dL (8.4-10.2); Potassium 3.9 mmol/L (3.5-5.1); Total Bilirubin 0.7 mg/dL (0.2-1.3); Total Protein 7.1 g/dL (6.3-8.2)
--- NOTE | 2016-08-14 09:43 | PN ---
DATE OF SERVICE: 08/13/2016 Reason for follow-up is liver abscess. INTERVAL HISTORY: The patient is afebrile. His abdominal pain has slightly improved. CT-guided drainage could not be done today. It is scheduled for Monday. Patient denies any chest pain or shortness of breath or cough. On examination, blood pressure 135/71 with a pulse of 60, temperature 96.9, he is 98% on room air. General description is an elderly male, lying in bed in no distress. RESPIRATORY SYSTEM: Unlabored breathing. Clear to auscultation anteriorly. HEART: S1, S2. Regular rate and rhythm. ABDOMEN: Soft, no tenderness. LABS: Hemoglobin is 10.7, white count 10.8 with a BUN of 28, creatinine 0.34. DIAGNOSTIC IMPRESSION AND PLAN: Patient with a liver abscess, awaiting the CT-guided drainage. If not possible, recommend laparoscopic drainage. Continue the patient on Zosyn. Continue supportive care.
--- NOTE | 2016-08-14 10:39 | PN ---
DATE OF SERVICE: 08/13/2016 SUBJECTIVE: An 86-year-old white male admitted for liver abscess with sepsis secondary to that with rigors and chills. Waiting for drainage of the liver abscess on Monday or Monday. Await a surgical consultation. Remains on IV antibiotics at this time. He is having less chills than when he was admitted. CARDIOVASCULAR: S1, S2. LUNGS: Clear. GI: Tenderness to palpation right upper quadrant. HEMATOLOGIC: Negative Homans. ASSESSMENT: 1. Liver abscess. 2. Sepsis secondary to liver abscess. Remain on IV Zosyn until laparoscopy is down to drain the liver abscess. 3. As far as history of hypertension, coronary artery disease and ( ) disease. Continue the home medications.
--- NOTE | 2016-08-14 11:27 | P.GSCN ---
History of Present Illness Consult date: 08/14/16 Reason for Consult: Liver abscess History of present illness: This 86-year-old male who has a history of liver abscess. Patient has undergone previous radiologic drainage. The abscess cavity is much smaller than previously described. It is changed from 6 cm to approximately 3 cm in diameter. Review of Systems - Constitutional Reports as per HPI Past Medical History Past Medical History: Cancer, Diabetes Mellitus, GERD/Reflux, Hyperlipidemia, Hypertension, Musculoskeletal Disorder, Osteoarthritis (OA), Sleep Apnea/CPAP/ BIPAP, Thyroid Disorder Additional Past Medical History / Comment(s): C-PAP MACHINE, ENVIRONMENTAL ALLERGIES, HX OF JAUNDICE AT 11 YRS OLD, HX OF MALARIA, BACK PAIN, SKIN CANCER , STATES HERNIA RIGHT GROIN THAT HE PRESSES ON WHEN HE COUGHS., STATES SWELLING IN LEGS AND FEET AND LLE HAS RED AREA. , ANEMIA, USES CANE, STREP THROAT History of Any Multi-Drug Resistant Organisms: None Reported Past Surgical History: Appendectomy, Cholecystectomy, Hernia Repair, Tonsillectomy Additional Past Surgical History / Comment(s): CATARACTS WITH LENS IMPLANT, SKIN CANCER SURG. Past Anesthesia/Blood Transfusion Reactions: No Reported Reaction Past Psychological History: Anxiety, Depression Additional Psychological History / Comment(s): treated for anxiety @ [facility] Smoking Status: Former smoker Past Alcohol Use History: None Reported Additional Past Alcohol Use History / Comment(s): SMOKED FOR APPROX 19 YEARS. 1PPD. QUIT SMOKING AT AGE 34. Past Drug Use History: None Reported - Past Family History Mother Family Medical History: No Reported History Additional Family Medical History / Comment(s): LEUKEMIA Father Additional Family Medical History / Comment(s): WOUNDED IN WW1, MULTIPLE INJURES -LIVED TILL AGE 89 Medications and Allergies Home Medications Medication Instructions Recorded Confirmed Type Aspirin EC [Ecotrin Low Dose] 81 mg PO DAILY@0900 10/13/14 08/11/16 History Cyanocobalamin [Vitamin B-12] 500 mcg PO DAILY@1200 10/13/14 08/11/16 History Folic Acid 1 mg PO DAILY@1200 10/13/14 08/11/16 History Lisinopril [Zestril] 5 mg PO DAILY 10/13/14 08/11/16 History Omeprazole [PriLOSEC] 20 mg PO HS 10/13/14 08/11/16 History Ubidecarenone [Co Q-10] 50 mg PO DAILY@1200 10/13/14 08/11/16 History [place]-3 Fatty Acids/Fish Oil [Fish 1 cap PO DAILY@1200 08/24/15 08/11/16 History Oil 1,000 mg Softgel] Potassium Chloride ER [K-Dur 20] 20 meq PO DAILY 08/24/15 08/11/16 History Levothyroxine Sodium [Synthroid] 75 mcg PO DAILY 02/21/16 08/11/16 History metFORMIN HCL 1,000 mg PO DAILY@0900 02/21/16 08/11/16 History Fluticasone Nasal [place] [Flonase 2 spray EA NOSTRIL DAILY PRN 03/25/16 08/11/16 History Nasal [place]] Loratadine 10 mg PO DAILY@1200 03/25/16 08/11/16 History Magnesium Oxide [Mag-Ox] 400 mg PO HS 03/25/16 08/11/16 History Tamsulosin [Flomax] 0.4 mg PO HS 03/25/16 08/11/16 History Ferrous Sulfate [Feosol] 325 mg PO HS 08/11/16 08/11/16 History Gabapentin [Neurontin] 300 mg PO DAILY 08/11/16 08/11/16 History Gabapentin [Neurontin] 600 mg PO HS 08/11/16 08/11/16 History HYDROcodone/APAP 7.5-325MG [[place] 1 tab PO Q4H 08/11/16 08/11/16 History 7.5-325] Insulin Aspart [NovoLOG] See Protocol SQ BID 08/11/16 08/11/16 History Insulin Glargine [Lantus] 30 unit SQ BID 08/11/16 08/11/16 History Metoprolol Tartrate [Lopressor] 25 mg PO HS 08/11/16 08/11/16 History Ubidecarenone [Co Q-10] 200 mg PO DAILY@1200 08/11/16 08/11/16 History Allergies Allergy/AdvReac Type Severity Reaction Status Date / Time [id number] Reductase AdvReac Unknown leg cramps Verified 08/12/16 00:52 Inhibitor Iodinated Contrast Media - AdvReac Unknown Verified 08/12/16 00:52 Oral and [Iodinated Contrast Media - IV Dye] Surgical - Exam Vital Signs Temp Pulse Resp BP Pulse Ox 97.5 F L 101 H 18 164/75 100 08/11/16 21:25 08/11/16 21:25 08/11/16 21:25 08/11/16 21:25 08/11/16 21:25 - General well developed, no distress - Eyes PERRL - ENT normal pinna - Abdomen Abdomen: soft, non tender Results - Labs 08/14/16 08:05 08/14/16 08:05 Abnormal Lab Results - Last 24 Hours (Table) 08/13/16 08/13/16 08/13/16 Range/Units 12:21 17:06 21:05 RBC (4.30-5.90) m/uL Hgb (13.0-17.5) gm/dL Hct (39.0-53.0) % BUN (9-20) mg/dL Creatinine (0.66-1.25) mg/dL POC Glucose (mg/dL) 318 H 223 H 232 H (75-99) mg/dL Alkaline Phosphatase (38-126) U/L Albumin (3.5-5.0) g/dL 08/14/16 08/14/16 Range/Units 08:05 08:05 RBC 3.72 L (4.30-5.90) m/uL Hgb 11.2 L (13.0-17.5) gm/dL Hct 35.0 L (39.0-53.0) % BUN 33 H (9-20) mg/dL Creatinine 1.42 H (0.66-1.25) mg/dL POC Glucose (mg/dL) (75-99) mg/dL Alkaline Phosphatase 157 H (38-126) U/L Albumin 3.4 L (3.5-5.0) g/dL Diabetes panel 08/14/16 Range/Units 08:05 Sodium 142 (137-145) mmol/L Potassium 3.9 (3.5-5.1) mmol/L Chloride 100 (98-107) mmol/L Carbon Dioxide 28 (22-30) mmol/L BUN 33 H (9-20) mg/dL Creatinine 1.42 H (0.66-1.25) mg/dL Glucose 80 (74-99) mg/dL Calcium 9.2 (8.4-10.2) mg/dL AST 44 (17-59) U/L ALT 71 (21-72) U/L Alkaline Phosphatase 157 H (38-126) U/L Total Protein 7.1 (6.3-8.2) g/dL Albumin 3.4 L (3.5-5.0) g/dL Calcium panel 08/14/16 Range/Units 08:05 Calcium 9.2 (8.4-10.2) mg/dL Albumin 3.4 L (3.5-5.0) g/dL Pituitary panel 08/14/16 Range/Units 08:05 Sodium 142 (137-145) mmol/L Potassium 3.9 (3.5-5.1) mmol/L Chloride 100 (98-107) mmol/L Carbon Dioxide 28 (22-30) mmol/L BUN 33 H (9-20) mg/dL Creatinine 1.42 H (0.66-1.25) mg/dL Glucose 80 (74-99) mg/dL Calcium 9.2 (8.4-10.2) mg/dL Adrenal panel 08/14/16 Range/Units 08:05 Sodium 142 (137-145) mmol/L Potassium 3.9 (3.5-5.1) mmol/L Chloride 100 (98-107) mmol/L Carbon Dioxide 28 (22-30) mmol/L BUN 33 H (9-20) mg/dL Creatinine 1.42 H (0.66-1.25) mg/dL Glucose 80 (74-99) mg/dL Calcium 9.2 (8.4-10.2) mg/dL Total Bilirubin 0.7 (0.2-1.3) mg/dL AST 44 (17-59) U/L ALT 71 (21-72) U/L Alkaline Phosphatase 157 H (38-126) U/L Total Protein 7.1 (6.3-8.2) g/dL Albumin 3.4 L (3.5-5.0) g/dL Assessment and Plan Plan: History of liver abscess. Patient's abscess cavity is not completely resolved. However it has improved from previous imaging. We will attempt to obtain CT- guided drainage tomorrow.
[2016-08-14 12:22] LABS: Glucose,Whole Blood 206 mg/dL (75-99)
[2016-08-14] MEDS: CYANOCOBALAMIN 500 MCG TAB PO SCH (12:29)
[2016-08-14] MEDS: LORATADINE 10 MG TAB PO SCH (12:29)
[2016-08-14] MEDS: FOLIC ACID 1 MG TAB PO SCH (12:29)
[2016-08-14 17:03] LABS: Glucose,Whole Blood 134 mg/dL (75-99)
[2016-08-14 21:06] LABS: Glucose,Whole Blood 127 mg/dL (75-99)
[2016-08-14] MEDS: PANTOPRAZOLE 40 MG TABLET PO SCH (21:10)
[2016-08-14] MEDS: FERROUS SULFATE 325 MG TAB PO SCH (21:10)
[2016-08-14] MEDS: MAGNESIUM OXIDE 400 MG TAB PO SCH (21:10)
[2016-08-14] MEDS: TAMSULOSIN 0.4 MG CAP.ER.24H PO SCH (21:10)
[2016-08-14] MEDS: METOPROLOL TARTRATE 25 MG TAB PO SCH (21:10)
[2016-08-15] MEDS: HYDROcodone/APAP 7.5-325MG 1 EACH TAB PO PRN ×4 (01:12→15:27)
[2016-08-15 07:45] LABS: Glucose,Whole Blood 84 mg/dL (75-99)
[2016-08-15 07:51] LABS: Basophils % (A) 0 %; CH 30.5; CHCM 31.8; Eosinophils # (A) 0.2 k/uL (0-0.7); Eosinophils % (A) 3 %; HCT 32.2 % (39.0-53.0); HGB 10.2 gm/dL (13.0-17.5); Luc # (Auto) 0.12; Luc % (Auto) 2; Lymphocytes # (A) 2.2 k/uL (1.0-4.8); Lymphocytes % (A) 35 %; MCH 30.3 pg (25.0-35.0); MCHC 31.5 g/dL (31.0-37.0); MCV 96.2 fL (80.0-100.0); Mean Platelet Volume 7.9; Monocytes # (A) 0.7 k/uL (0-1.0); Monocytes % (A) 10 %; Neutrophils # (A) 3.2 k/uL (1.3-7.7); Neutrophils % (A) 50 %; RBC 3.35 m/uL (4.30-5.90); RDW 13.3 % (11.5-15.5); WBC 6.5 k/uL (3.8-10.6); WBC (Perox) 7.01
[2016-08-15] MEDS: INSULIN LISPRO (humaLOG) 300 UNIT/3 ML VIAL SQ SCH ×3 (08:13→16:51)
[2016-08-15] MEDS: HEPARIN SODIUM,PORCINE 5,000 UNIT/ML 1 ML VIAL SQ SCH ×2 (08:14→15:24)
--- NOTE | 2016-08-15 08:14 | P.PN ---
Subjective 86-year-old male being seen this morning on rounds. Plan of care reviewed with the patient. Patient is to be followed by surgical service for a possible CT- guided drainage today of the liver abscess patient has a history of a prior liver abscess. Had undergone a previous interventional radiology drainage of the abscess. Did note this morning the patient's blood sugars are low in the 80s with the systolic blood pressure in the 90s. Patient does report having "episodes of blurred vision" patient continues to deny any chest pain or shortness of breath no cough noted. States slight tenderness to the abdominal wall Objective - Vital Signs Vital signs: Vital Signs Temp 97.2 F L 08/15/16 07:00 Pulse 62 08/15/16 07:00 Resp 18 08/15/16 07:00 BP 95/46 08/15/16 07:00 Pulse Ox 96 08/15/16 07:00 Intake & Output 08/14/16 08/15/16 08/15/16 18:59 06:59 18:59 Intake Total 130 350 Balance 130 350 Intake: IV 130 Normal saline at KVO 80 Piperacillin-Tazobactam 3 50 .375 gm In Dextrose/Water 1 50ml.bag @ 12.5 mls/hr IVPB Q8HR [facility] Rx#: [id number] Oral 350 Other: Voiding Method Toilet Toilet Urinal Urinal # Voids 1 2 - Exam Physical exam 86-year-old male resting in bed in oriented 3 awake and alert aware the plan of care Lungs diminished at the bases otherwise adequate air movement sats 99% on room air Heart S1-S2 audible and regular currently denying heart palpitations or chest pain Abdomen soft not distended diffuse tenderness across the abdominal wall reports nausea sensation no active emesis no stooling no difficulty in urinating only nothing by mouth for the planned procedure Extremities no edema noted - Labs CBC & Chem 7: 08/15/16 07:02 08/14/16 08:05 Labs: Abnormal Lab Results - Last 24 Hours (Table) 08/14/16 08/14/16 08/14/16 Range/Units 08:05 08:05 12:20 RBC 3.72 L (4.30-5.90) m/uL Hgb 11.2 L (13.0-17.5) gm/dL Hct 35.0 L (39.0-53.0) % BUN 33 H (9-20) mg/dL Creatinine 1.42 H (0.66-1.25) mg/dL POC Glucose (mg/dL) 206 H (75-99) mg/dL Alkaline Phosphatase 157 H (38-126) U/L Albumin 3.4 L (3.5-5.0) g/dL 08/14/16 08/14/16 08/15/16 Range/Units 17:02 21:03 07:02 RBC 3.35 L (4.30-5.90) m/uL Hgb 10.2 L (13.0-17.5) gm/dL Hct 32.2 L (39.0-53.0) % BUN (9-20) mg/dL Creatinine (0.66-1.25) mg/dL POC Glucose (mg/dL) 134 H 127 H (75-99) mg/dL Alkaline Phosphatase (38-126) U/L Albumin (3.5-5.0) g/dL Assessment and Plan Plan: Impression Present on admission febrile temp 101.4 with mild leukocytosis unclear etiology Present on admission epigastric pain with nausea febrile leukocytosis unclear etiology History of a liver abscess status post percutaneous drainage and biopsy left lobe of the liver for hepatic lesion done 02/24/2016 Chronically debilitated with gait imbalance Cognitive impairment suspect dementia duration undetermined with no behavior disturbance History of sleep apnea with CPAP support Chronic back pain narcotic dependent Chronic lower back pain Anxiety disorder nonspecified Obesity BMI 32 Type 2 diabetes insulin requiring uncontrolled hemoglobin A1c 9.7 History of Klebsiella pneumonia bacteremia February 2016 resolved Episodes of hypoglycemia Episodes of hypotension Plan Continue with recommendations by infectious disease per Dr. Walters currently on Zosyn Resume home meds as appropriate Scheduled today for a CT guided drainage of the liver abscess await findings Follow up on blood and urine cultures Decrease the Lantus down to 10 twice a day hold metformin monitor blood sugars address as indicated Home hold lisinopril monitor blood pressure DVT and GI prophylaxis Pain control IV fluid as ordered Zofran as needed The above dictated assessment and findings were discussed with dr kacey Pandey and the plan of care have been dictated as directed. Adore Hightower nurse practitioner acting as a scribe for dr erazo
[2016-08-15 08:15] LABS: Calcium 8.8 mg/dL (8.4-10.2); Potassium 4.2 mmol/L (3.5-5.1); Total Bilirubin 0.6 mg/dL (0.2-1.3); Total Protein 6.4 g/dL (6.3-8.2)
[2016-08-15] MEDS: ASPIRIN 81 MG CHEW PO SCH (08:15)
[2016-08-15] MEDS: LEVOTHYROXINE 75 MCG TAB PO SCH (08:17)
[2016-08-15] MEDS: GABAPENTIN 300 MG CAP PO SCH (08:18)
[2016-08-15] MEDS: FAMOTIDINE 20 MG/2 ML VIAL IV SCH (08:18)
[2016-08-15] MEDS: PIPERACILLIN-TAZOBACTAM 3.375 GM in DEXTROSE/WATER 1 50ML.BAG IVPB SCH ×2 (08:18→15:24)
[2016-08-15] MEDS: POTASSIUM CHLORIDE ER 20 MEQ TAB.ER PO SCH (08:18)
[2016-08-15] MEDS: FUROSEMIDE 20 MG TAB PO SCH ×2 (08:18→15:24)
[2016-08-15] MEDS ORDERED: INSULIN GLARGINE 100 UNIT/ML 10 ML VIAL SQ SCH (09:00)
[2016-08-15 09:17] LABS: Glucose,Whole Blood 76 mg/dL (75-99)
[2016-08-15 10:09] LABS: Glucose,Whole Blood 103 mg/dL (75-99)
[2016-08-15] MEDS: FOLIC ACID 1 MG TAB PO SCH (10:48)
[2016-08-15] MEDS: LORATADINE 10 MG TAB PO SCH (10:48)
[2016-08-15] MEDS: CYANOCOBALAMIN 500 MCG TAB PO SCH (10:48)
[2016-08-15 11:28] LABS: Glucose,Whole Blood 87 mg/dL (75-99)
--- NOTE | 2016-08-15 14:26 | P.DS ---
Providers Date of admission: 08/11/16 23:36 Expected date of discharge: 08/15/16 Attending physician: Lazaro Erazo Consults: 08/12/16 08:41 Consult Physician Urgent Consulting Provider: Karis Kat Consult Reason/Comments: ? Liver abscess Do you want consulting provider notified?: Yes 08/12/16 17:10 Consult Physician Routine Consulting Provider: Lazaro Strickland Consult Reason/Comments: drain hepatic abscess Do you want consulting provider notified?: Yes 08/13/16 22:42 Consult Physician Routine Consulting Provider: Oren Suh Consult Reason/Comments: liver abscess drainage per laparoscopy Do you want consulting provider notified?: Yes Primary care physician: [facility] Course: 86-year-old male presented on the day of admission to the emergency room on August 11 with a chief complaint of developing upper abdominal pain. Patient stated the pain he points to the epigastric region had been ongoing for the past several days but over the last 24 hours became too intense could not bear the pain was interfering with activities of daily living. Patient stated he had a nausea sensation but no active emesis. Denied any change in bowel habits denied any loose stools blood in stool or constipation issues. Additionally patient denied any heart palpitations chest pain or shortness of breath. Patient denied any recent illness. Denied any recent trauma. Patient stated that his symptoms feel similar to when he was told he had an abscess in his liver in February 2016 patient is a poor historian did note the liver enzymes are not markedly elevated the AST is 46 ALT 57 alk phos 167. In the total bili 1.1. The white count 9. Patient does report having a nausea sensation there is no active emesis. Did review the report 02/23/2016 the CAT scan with oral contrast did show a low density liver mass slightly smaller compared to a prior exam patient states he has not been hospitalized recently. His last hospitalization was in February 2016 at that time patient was treated for generalized weakness. Additionally on 02/24/2016 the patient did have a percutaneous drainage and biopsy of the left lobe of the liver GI eval was obtained patient was seen by Dr. Estrada. They indicated that the patient could have an ERCP done as an outpatient this could be scheduled for next week. Additionally surgical service did see patient. The abscess cavity is much smaller than previously described. No change from 6 cm to 3 cm in diameter. The recommending surveillance and no surgical intervention at this time. And recommended that Dr. 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 Patient was adamant about not missing the appointment was anxious to be discharged. At the time of discharge patient's abdominal discomfort had resolved patient was asymptomatic and felt to be appropriate to proceed with a discharge patient was aware of the need to follow-up as directed Impression discharge diagnosis Present on admission febrile temp 101.4 with mild leukocytosis unclear etiology Present on admission epigastric pain with nausea febrile leukocytosis unclear etiology History of a liver abscess status post percutaneous drainage and biopsy left lobe of the liver for hepatic lesion done 02/24/2016 Chronically debilitated with gait imbalance Cognitive impairment suspect dementia duration undetermined with no behavior disturbance History of sleep apnea with CPAP support Chronic back pain narcotic dependent Chronic lower back pain Anxiety disorder nonspecified Obesity BMI 32 Type 2 diabetes insulin requiring uncontrolled hemoglobin A1c 9.7 History of Klebsiella pneumonia bacteremia February 2016 resolved Episodes of hypoglycemia Episodes of hypotension 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 Impression and the plan of care have been dictated as directed. Adore Hightower nurse practitioner acting as a scribe for dr erazo Plan - Discharge Summary New Discharge Prescriptions: Ciprofloxacin HCl [Cipro] 500 mg PO Q12HR #28 tablet Discharge Medication List Aspirin EC [Ecotrin Low Dose] 81 mg PO DAILY@0900 10/13/14 [History] Cyanocobalamin [Vitamin B-12] 500 mcg PO DAILY@1200 10/13/14 [History] Folic Acid 1 mg PO DAILY@119910/13/14 [History] Lisinopril [Zestril] 5 mg PO DAILY 10/13/14 [History] Omeprazole [PriLOSEC] 20 mg PO HS 10/13/14 [History] Ubidecarenone [Co Q-10] 50 mg PO DAILY@1200 10/13/14 [History] [place]-3 Fatty Acids/Fish Oil [Fish Oil 1,000 mg Softgel] 1 cap PO DAILY@1199/16 [History] Potassium Chloride ER [K-Dur 20] 20 meq PO DAILY 08/24/15 [History] Levothyroxine Sodium [Synthroid] 75 mcg PO DAILY 02/21/16 [History] metFORMIN HCL 1,000 mg PO DAILY@0900 02/21/16 [History] Furosemide [Lasix] 20 mg PO BID@0900,1600 tab 02/26/16 [Rx] Fluticasone Nasal [place] [Flonase Nasal [place]] 2 spray EA NOSTRIL DAILY PRN 03/25 [History] Loratadine 10 mg PO DAILY@1200 03/25/16 [History] Magnesium Oxide [Mag-Ox] 400 mg PO HS 03/25/16 [History] Tamsulosin [Flomax] 0.4 mg PO HS 03/25/16 [History] Ferrous Sulfate [Feosol] 325 mg PO HS 08/11/16 [History] Gabapentin [Neurontin] 300 mg PO DAILY 08/11/16 [History] Gabapentin [Neurontin] 600 mg PO HS 08/11/16 [History] HYDROcodone/APAP 7.5-325MG [[place] 7.5-325] 1 tab PO Q4H 08/11/16 [History] Insulin Aspart [NovoLOG] See Protocol SQ BID 08/11/16 [History] Insulin Glargine [Lantus] 30 unit SQ BID 08/11/16 [History] Metoprolol Tartrate [Lopressor] 25 mg PO HS 08/11/16 [History] Ubidecarenone [Co Q-10] 200 mg PO DAILY@1200 08/11/16 [History] Acetaminophen Tab [Tylenol] 650 mg PO Q6HR PRN #0 tab 08/15/16 [Rx] Ciprofloxacin HCl [Cipro] 500 mg PO Q12HR #28 tablet 08/15/16 [Rx] Follow up Appointment(s)/Referral(s): John Stapleton MD [STAFF PHYSICIAN] - 08/23/16 (HOSPITAL WILL CALL WITH TIME AND INSTRUCTIONS FOR ERCP SCHEDULED ON 08/23 ) Lazaro Erazo MD [Primary Care Provider] - 1-2 days Sunitha Walters MD [STAFF PHYSICIAN] - 2 Weeks Patient Instructions/Handouts: Type 2 Diabetes in Adults (DC) Activity/Diet/Wound Care/Special Instructions: [facility] - [phone] Care Plan Goals (MU): Keep scheduled appointment [facility] this coming Monday on August 17 Discharge Disposition: HOME WITH HOME HEALTH SERVICES
--- NOTE | 2016-08-15 14:49 | PN ---
DATE OF SERVICE: 08/24/2016 REASIN FOR FOLLOWUP: Liver abscess. INTERVAL HISTORY: The patient is afebrile and he is currently breathing comfortably. Denies significant chest pain or shortness of breath or cough. Denies any worsening abdominal pain. No nausea, vomiting or diarrhea. On examination, blood pressure is 134/63 with a pulse of 73, temperature 97.1. He is 97% on room air. General description is an elderly male, lying in bed in no distress. RESPIRATORY SYSTEM: Unlabored breathing. Clear to auscultation anteriorly. HEART: S1, S2. Regular rate and rhythm. ABDOMEN: Soft, no tenderness. LABS: Hemoglobin is 11.1, white count 9.2 with a BUN of 33, creatinine is 1.42. Blood culture negative so far. DIAGNOSTIC IMPRESSION AND PLAN: Patient with a liver abscess, waiting for the interventional radiology drainage of the same, which should be sent for culture, both aerobic and anaerobic, and the patient is on Zosyn. Continue supportive care.
[2016-08-15 16:06] VITALS: BP 115/68; PULSE 70; RESP 17; TEMP 96.6
[2016-08-15 16:32] LABS: Glucose,Whole Blood 238 mg/dL (75-99)
--- NOTE | 2016-08-15 17:51 | P.PN ---
Progress Note - Text This 86-year-old male who has a history of liver abscess. Patient has undergone previous radiologic drainage. Dr. Suh again reviewed CT scan with radiologist and suspect patient has dilated bile duct with no evidence of abscess. On exam, patient is doing well. Complains of minimal abdominal pain. Vital signs stable. Abdomen soft, nontender. Impression: dilated bile duct with no evidence of abscess. Plan: No surgical intervention at this time. The above impression and plan have been discussed and directed by Dr. Suh. Dao ALONSO acting as scribe for Dr. Suh.
--- NOTE | 2016-08-15 19:26 | PN ---
DATE OF SERVICE: 08/14/2016 SUBJECTIVE: This is an 86-year-old white male who has been lightheaded, dizzy. I had to cut his regular insulin down today, as he has been hypoglycemic in the 80s, with dizziness. He has a hepatic abscess, for which he has been treated with IV Zosyn; awaiting whether we do a needle drainage of the abscess or open/laparoscopic surgery by Dr. Suh. His vitals show temperature 97.8, pulse rate in the 60s, respiratory rate 16 to 18, blood pressure 120s over 56. Pulse ox 96% on room air. CARDIOVASCULAR: S1, S2. LUNGS: Clear. GI: Soft. HEMATOLOGIC: Negative Homans. ASSESSMENT: 1. Hepatic abscess. 2. Lightheadedness and dizziness secondary to possible hyperglycemia. Will decrease his regular insulin and monitor him closely. Continue with IV fluids and IV antibiotics per Dr. Walters's recommendations.
--- NOTE | 2016-08-15 20:52 | PN ---
DATE OF SERVICE: 08/15/2016 REASON FOR FOLLOW UP: Question of liver abscess and fever. INTERVAL HISTORY: The patient is afebrile. He has been breathing comfortably. Denies any chest pain or shortness of breath. No nausea, vomiting or any diarrhea. Radiology has reviewed the films and thinks it is not a liver abscess but dilated duct and hence postponed the CT-guided drainage. On examination, blood pressure is 95/46 with pulse of 52, temperature 97.0. He is 96% on room air. GENERAL DESCRIPTION: An elderly male, lying in bed in no distress. RESPIRATORY SYSTEM: Unlabored breathing. Clear to auscultation anteriorly. HEART: S1, S2 regular rate and rhythm. ABDOMEN: Soft. No tenderness. EXTREMITIES: No edema of the feet. LABS: Hemoglobin is 10.2, white count 6.5, BUN of 31, creatinine 1.48. Blood culture has been negative. DIAGNOSTIC IMPRESSION AND PLAN: The patient is admitted to the hospital with fever, did have some abdominal pain with abnormality seen on the liver concerning for possible abscess. CT was reviewed with the radiologist and myself, who thinks it is more of a dilated duct and the patient would benefit from MRI or ERCP, the patient has a pacemaker and cannot go for MRCP or MRI. I did discuss the case in detail with Dr. Stapleton from GI who advised that he would do the ERCP on Monday. 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 The patient is insisting on being discharged, he will be discharged on oral Cipro 500 mg twice a day for 2 weeks with ERCP scheduled for early next week. He will follow-up in the office as outpatient. Plan of care has been discussed in detail with multiple physicians including nurse practitioner for the primary team who is working on discharge. All the questions were answered. KIM
[2016-08-16] MEDS ORDERED: FAMOTIDINE 20 MG/2 ML VIAL IV SCH (09:00)
== END 2016-08-15 18:49 | disposition home or self-care (01) | DRG 871 ==
LOC: EC 21:21 → 4MS4W 23:36
PROVIDERS: ADMIT Family Medicine; ATTEND Family Medicine
DX: A41.9 Sepsis, unspecified organism (principal); K75.0 Abscess of liver; E11.65 Type 2 diabetes mellitus with hyperglycemia; C44.329 Squamous cell carcinoma of skin of other parts of face; I10 Essential (primary) hypertension; D64.9 Anemia, unspecified; E03.9 Hypothyroidism, unspecified; E78.5 Hyperlipidemia, unspecified; F41.9 Anxiety disorder, unspecified; F32.9 Major depressive disorder, single episode, unspecified; K21.9 Gastro-esophageal reflux disease without esophagitis; G47.33 Obstructive sleep apnea (adult) (pediatric); G89.29 Other chronic pain; M54.5 Low back pain; M19.90 Unspecified osteoarthritis, unspecified site; I25.10 Atherosclerotic heart disease of native coronary artery without angina pectoris; E66.9 Obesity, unspecified; Z68.32 Body mass index [BMI] 32.0-32.9, adult; Z71.3 Dietary counseling and surveillance; Z85.828 Personal history of other malignant neoplasm of skin; Z86.13 Personal history of malaria; Z87.891 Personal history of nicotine dependence; Z90.49 Acquired absence of other specified parts of digestive tract; Z98.42 Cataract extraction status, left eye; Z98.41 Cataract extraction status, right eye; Z96.1 Presence of intraocular lens; Z95.0 Presence of cardiac pacemaker; Z79.84 Long term (current) use of oral hypoglycemic drugs; Z79.82 Long term (current) use of aspirin; Z79.4 Long term (current) use of insulin; Z79.891 Long term (current) use of opiate analgesic; Z79.899 Other long term (current) drug therapy
CPT/HCPCS: 36415; 71020; 74177; 80053; 80074; 81003; 82150; 82533; 82550; 82553; 83036; 83605; 83690; 84484; 85025; 85610; 85730; 87040; 87086; 87502; 93005; 96361; 96365; 96367; 99285

== ENCOUNTER 2016-08-23 07:59 | Day surgery (SDC) | payer MEDICARE, BC ==
[2016-08-19 10:29] VITALS: BMI 32.5
[~2016-08-23 07:59] MED LIST: LACTATED RINGERS 1,000 ML IV SCH
[2016-08-23] MEDS ORDERED: LEVOFLOXACIN 500MG-D5W PMX 500 MG in DEXTROSE/WATER 1 100ML.BAG IVPB NR (08:00)
[2016-08-23] MEDS ORDERED: INDOMETHACIN 50MG SUPPOSITORY RECTAL ONE (08:30)
[2016-08-23 08:49] LABS: Glucose,Whole Blood 209 mg/dL (75-99)
[2016-08-23] MEDS ORDERED: LIDOCAINE 1% 20 ML VIAL (10MG/ML) FOR IV START INTRADERMA ONE (08:51)
[2016-08-23 08:56] LABS: Basophils # (A) 0.1 k/uL (0-0.2); Basophils % (A) 1 %; CH 30.4; CHCM 32.9; Eosinophils # (A) 0.2 k/uL (0-0.7); Eosinophils % (A) 2 %; HCT 33.3 % (39.0-53.0); HDW 2.47; HGB 11.1 gm/dL (13.0-17.5); Luc # (Auto) 0.09; Luc % (Auto) 1; Lymphocytes % (A) 23 %; MCH 30.9 pg (25.0-35.0); MCHC 33.2 g/dL (31.0-37.0); MCV 93.1 fL (80.0-100.0); Mean Platelet Volume 7.3; Monocytes # (A) 0.6 k/uL (0-1.0); Monocytes % (A) 7 %; Neutrophils # (A) 5.6 k/uL (1.3-7.7); Neutrophils % (A) 65 %; RBC 3.58 m/uL (4.30-5.90); RDW 13.4 % (11.5-15.5); WBC 8.6 k/uL (3.8-10.6); WBC (Perox) 8.79
[2016-08-23 09:07] LABS: Partial Thromboplastin Time 22.8 sec (22.0-30.0)
[2016-08-23 09:10] LABS: ALT 50 U/L (21-72); AST 28 U/L (17-59); Alkaline Phosphatase 233 U/L (38-126); Anion Gap 10 mmol/L; Blood Urea Nitrogen 22 mg/dL (9-20); Calcium 9.2 mg/dL (8.4-10.2); Carbon Dioxide 28 mmol/L (22-30); Chloride 101 mmol/L (98-107); Glucose 228 mg/dL (74-99); Non-African American GFR(MDRD) 55 (>60 ml/min/1.73 sqM); Potassium 4.7 mmol/L (3.5-5.1); Sodium 139 mmol/L (137-145); Total Bilirubin 0.7 mg/dL (0.2-1.3); Total Protein 7.3 g/dL (6.3-8.2)
[2016-08-23] MEDS ORDERED: METOPROLOL TARTRATE 25 MG TAB PO STA (09:12)
[2016-08-23] MEDS ORDERED: KETAMINE 10 MG/ML 20 ML VIAL ONE (09:37)
[2016-08-23] MEDS ORDERED: PROPOFOL 10 MG/ML 20 ML VIAL IV ONE (09:37)
[2016-08-23] MEDS ORDERED: HYDROCORTISONE SUCCINATE 100 MG/2 ML VIAL ONE (09:37)
[2016-08-23] MEDS ORDERED: diphenhydrAMINE 50 MG/ML 1 ML VIAL ONE (09:37)
[2016-08-23] MEDS ORDERED: IOHEXOL 300 MG/ML 50 ML BOTTLE INJ ONE (10:20)
--- NOTE | 2016-08-23 10:30 | P.PCN ---
Date of Procedure: 08/23/16 Procedure(s) Performed: Procedure: Endoscopic retrograde cholangiopancreatography ERCP with sphincterotomy and attempt at extracting a common bile duct stone using the 15 mm balloon catheter with subsequent placement of the 5 cm 7-[place] pigtail biliary stent. Preparation and sedation: Was provided by anesthesia. Brief clinical history: The patient is an 86-year-old male who is referred for this evaluation because of history of abdominal pain and jaundice and abnormal imaging studies raising the possibility of common bile duct pathology. On his latest blood work his transaminases and total bilirubin were normal with only alkaline phosphatase elevation. Procedure: With the patient in the prone position and after informed consent and adequate sedation, I passed the Olympus video duodenoscope down the esophagus into the stomach then passed it through the pylorus into the duodenum and brought the papilla into view. The papilla appeared within normal limits. Initial cannulation and injection with dye resulted in opacification of the pancreatic duct which appeared within normal limits for age. Subsequently the biliary tree was visualized and there was a large filling defect in the common bile duct consistent with the common bile duct stone. I proceeded to exchange the catheter for a sphincterotome over a guidewire then performed adequate sphincterotomy. After that, I advanced the 15 mm balloon catheter to the proximal common bile duct but I was not able to extract the common bile duct stone. I therefore proceeded to place a 5 cm 7-Eritrean biliary stent. Patient tolerated the procedure well and did not have any immediate complication. Plan: The patient will be kept overnight for observation as we would normally do after sphincterotomy to monitor for bleeding, pancreatitis or other complications. I anticipate placing him on Actigall and attempting mechanical lithotripsy and stone in the short-term. I will keep you updated on his progress.
--- NOTE | 2016-08-23 10:57 | FL ---
EXAMINATION TYPE: FL ERCP DATE OF EXAM: 08/23/2016 10:36 AM CLINICAL HISTORY: Biliary stone. TECHNIQUE: Fluoroscopy. COMPARISON: CT abdomen and pelvis August 12, 2016.. FINDINGS: Fluoroscopic guidance was provided during ERCP procedure performed by Dr. Stapleton. A total o f 2 minutes 59 seconds of fluoroscopic time was utilized during the procedure and 2 spot images are a cquired. Images acquired redemonstrate left-sided intrahepatic biliary dilatation. Please refer to pr ocedure note for further details as I was not present nor performed procedure. IMPRESSION: As Above.
[2016-08-23 11:13] LABS: Glucose,Whole Blood 252 mg/dL (75-99)
[2016-08-23] MEDS ORDERED: ONDANSETRON 4 MG/2 ML VIAL IVP PRN (11:51)
[2016-08-23] MEDS ORDERED: FLUTICASONE 50MCG/SPRAY NASAL 16GM EA NOSTRIL PRN (11:53)
[2016-08-23] MEDS: INSULIN LISPRO (humaLOG) 300 UNIT/3 ML VIAL SQ SCH ×3 (12:00→21:35)
--- NOTE | 2016-08-23 12:05 | P.HPIM ---
History of Present Illness H&P Date: 08/23/16 Chief Complaint: abdominal pain history of liver abscess 86-year-old gentleman patient Dr. Bailey with a past medical history of malaria, skin carcinoma, cholelithiasis status post cholecystectomy, open ventral hernia repair, diabetes mellitus, hypertension, appendectomy, sleep apnea, anxiety, depression. Recently hospitalized a few weeks ago with fever and abdominal pain. He has a history of liver abscess Klebsiella bacteremia in February 2016. CT abdomen and pelvis 08/12/2016 reported area of low attenuation in the left lobe of the liver reduced from previous exam. Isolated intrahepatic biliary ductal dilatation within the left lobe of the liver. No sizable abscess for percutaneous drainage was seen at that time. Liver chemistries at that time were stable. He underwent ERCP evaluation today with findings of normal pancreatic duct. Large filling defect in the common bile duct consistent with common bile duct stone. Sphincterotomy was performed however CBD stone was unable to be extracted therefore biliary stent was placed. Preprocedure chemistries total bilirubin 0.7. AST 28. ALT 50. Alkaline phosphates 233. BUN 22. Creatinine 1.2. White count 8.6. Hemoglobin 11.1. Review of Systems Constitutional: Denies fever, chills, sweats, weight gain, or loss. HEENT: Negative for migraines, blurred vision or loss, earaches, drainage, tinnitus, oral mucosal lesions, dysphagia, or odynophagia. Cardiac: Hypertension. Hyperlipidemia. Negative for chest pain, arrhythmias, or palpitation. Respiratory: Negative for shortness of breath, hemoptysis, cough, or sputum production. Gastrointestinal: See HPI for pertinent findings. Genitourinary: Negative for hematuria, urgency, frequency, polyuria, dysuria, or penile discharge. Musculoskeletal: Negative for muscle aches, swelling, arthritis, and arthralgias. Neurologic: Negative for stroke or TIA. Endocrine: Diabetes mellitus. Negative for thyroid problems. Skin: Negative for rash or itching. Skin carcinoma. Psychiatric: History for depression and anxiety. Hematology: Malaria. All systems: negative Past Medical History Past Medical History: Cancer, Diabetes Mellitus, GERD/Reflux, Hyperlipidemia, Hypertension, Osteoarthritis (OA), Sleep Apnea/CPAP/BIPAP, Thyroid Disorder Additional Past Medical History / Comment(s): HX jaundice age 11, SKIN CANCER- removal recently on head with open wound , SWELLING of ankles, hx ANEMIA, USES CANE, bradycardia, hiatal hernia, hs ulcer, History of Any Multi-Drug Resistant Organisms: None Reported Past Surgical History: Appendectomy, Cholecystectomy, Hernia Repair, Pacemaker, Tonsillectomy Additional Past Surgical History / Comment(s): lana CATARACTS WITH LENS IMPLANT, SKIN CANCER SURG. Past Anesthesia/Blood Transfusion Reactions: No Reported Reaction Type of Cardiac Device: Permanent Pacemaker Device Placement Date:: 08/2015 Past Psychological History: Anxiety, Depression Additional Psychological History / Comment(s): . Smoking Status: Former smoker Past Alcohol Use History: None Reported Additional Past Alcohol Use History / Comment(s): SMOKED FOR APPROX 19 YEARS. 1PPD. QUIT SMOKING AT AGE 34. Past Drug Use History: None Reported - Past Family History Mother Family Medical History: No Reported History, Cancer Additional Family Medical History / Comment(s): LEUKEMIA Father Additional Family Medical History / Comment(s): WOUNDED IN WW1, MULTIPLE INJURES -LIVED TILL AGE 89 Brother(s) Family Medical History: Cancer Medications and Allergies Home Medications Medication Instructions Recorded Confirmed Type Aspirin EC [Ecotrin Low Dose] 81 mg PO DAILY 10/13/14 08/23/16 History Cyanocobalamin [Vitamin B-12] 500 mcg PO DAILY 10/13/14 08/23/16 History Folic Acid 1 mg PO DAILY 10/13/14 08/23/16 History Lisinopril [Zestril] 5 mg PO DAILY 10/13/14 08/23/16 History Omeprazole [PriLOSEC] 20 mg PO HS 10/13/14 08/23/16 History [place]-3 Fatty Acids/Fish Oil [Fish 1 cap PO DAILY 08/24/15 08/23/16 History Oil 1,000 mg Softgel] Potassium Chloride ER [K-Dur 20] 20 meq PO DAILY 08/24/15 08/23/16 History Levothyroxine Sodium [Synthroid] 75 mcg PO DAILY 02/21/16 08/23/16 History metFORMIN HCL 1,000 mg PO DAILY@0900 02/21/16 08/23/16 History Fluticasone Nasal [place] [Flonase 2 spray EA NOSTRIL DAILY PRN 03/25/16 08/23/16 History Nasal [place]] Loratadine 10 mg PO DAILY 03/25/16 08/23/16 History Magnesium Oxide [Mag-Ox] 400 mg PO HS 03/25/16 08/23/16 History Tamsulosin [Flomax] 0.4 mg PO HS 03/25/16 08/23/16 History Ferrous Sulfate [Feosol] 325 mg PO HS 08/11/16 08/23/16 History Gabapentin [Neurontin] 300 mg PO BID 08/11/16 08/23/16 History HYDROcodone/APAP 7.5-325MG [[place] 1 tab PO Q4H PRN 08/11/16 08/23/16 History 7.5-325] Insulin Aspart [NovoLOG] See Protocol SQ BID 08/11/16 08/23/16 History Insulin Glargine [Lantus] 30 unit SQ AC-BRKFST 08/11/16 08/23/16 History Metoprolol Tartrate [Lopressor] 25 mg PO HS 08/11/16 08/23/16 History Ubidecarenone [Co Q-10] 200 mg PO DAILY 08/11/16 08/23/16 History Allergies Allergy/AdvReac Type Severity Reaction Status Date / Time [id number]-Gug Reductase AdvReac Unknown Unknown Verified 08/19/16 10:10 Inhibitor Iodinated Contrast Media - AdvReac shakes Verified 08/19/16 10:10 Oral and [Iodinated Contrast Media - IV Dye] Physical Exam Vitals: Vital Signs Temp Pulse Resp BP Pulse Ox 08/23/16 11:45 60 16 137/62 94 L 08/23/16 11:30 60 16 158/68 97 08/23/16 11:15 60 16 144/66 97 08/23/16 11:00 60 16 157/65 99 08/23/16 10:45 64 16 192/79 100 08/23/16 10:28 97.6 F 61 16 182/77 100 08/23/16 08:30 97.9 F 69 16 144/72 98 Intake and Output 08/22/16 08/23/16 08/23/16 22:59 06:59 14:59 Intake Total 100 Balance 100 Intake: IV 100 General appearance: The patient is alert, oriented, in no acute distress. HET: Head is normocephalic and atraumatic. Pupils are equal and reactive. Oropharynx is clear without lesions. Neck: Supple without lymphadenopathy. Trachea midline. Heart: S1 S2. Regular rate and rhythm. Lungs: No crackles or wheezes are heard. Abdomen: Soft, nontender, nondistended with bowel sounds. No peritoneal signs. No palpable organomegaly or masses. Extremities: Normal skin color and turgor. No cyanosis, rash, ulceration, clubbing, or edema. Radial and pedal pulses are 2/4 bilaterally. Neurological: No focal deficits. Strength and sensation are grossly intact. Results CBC & Chem 7: 08/24/16 06:31 08/24/16 06:31 Labs: Abnormal Lab Results - Last 24 Hours (Table) 08/23/16 08/23/16 08/23/16 Range/Units 08:39 08:45 08:45 RBC 3.58 L (4.30-5.90) m/uL Hgb 11.1 L (13.0-17.5) gm/dL Hct 33.3 L (39.0-53.0) % BUN 22 H (9-20) mg/dL Glucose 228 H (74-99) mg/dL POC Glucose (mg/dL) 209 H (75-99) mg/dL Alkaline Phosphatase 233 H (38-126) U/L 08/23/16 Range/Units 11:09 RBC (4.30-5.90) m/uL Hgb (13.0-17.5) gm/dL Hct (39.0-53.0) % BUN (9-20) mg/dL Glucose (74-99) mg/dL POC Glucose (mg/dL) 252 H (75-99) mg/dL Alkaline Phosphatase (38-126) U/L Assessment and Plan (1) Choledocholithiasis Narrative/Plan: 86-year-old gentleman with a history of liver abscess February 2017 with recent hospital physician for abdominal pain and fever with CT imaging suggestive of isolated intrahepatic biliary ductal dilatation with a left lobe of the liver status post ERCP with findings and common bile duct filling defect consistent with choledocholithiasis unable to extract stone status post sphincterotomy and biliary stent placement. Status: Acute (2) Insulin dependent diabetes mellitus Status: Chronic (3) Skin carcinoma Narrative/Plan: Skin carcinoma the scalp Status: Chronic (4) Hepatic abscess Status: Chronic (5) Hypertension Status: Chronic Plan: 1. Will observe overnight with repeat CMP, amylase lipase CBC in the a.m. Will allow full liquid diet and advance as tolerated. 2. Glycemic control. 3. GI prophylaxis. Anticipate discharge in the a.m. This history and physical was discussed with Dr. Stapleton. The impression and plan a care have been directed as dictated.
[2016-08-23] MEDS ORDERED: HYDROmorphone 1 MG/ML 1 ML SYRINGE IVP PRN (12:16)
[2016-08-23] MEDS ORDERED: HYDROcodone/APAP 7.5-325MG 1 EACH TAB PO PRN (13:58)
[2016-08-23] MEDS ORDERED: SODIUM CHLORIDE 0.9% 1,000 ML IV ONE (14:51)
[2016-08-23 15:20] LABS: Hemoglobin A1C 9.8 % (4.2-6.1)
[2016-08-23] MEDS: SODIUM CHLORIDE 0.9% 1,000 ML IV SCH (17:04)
[2016-08-23] MEDS: LACTATED RINGERS 1,000 ML IV SCH (17:04)
[2016-08-23] MEDS: URSODIOL 300 MG CAP PO SCH (17:05)
[2016-08-23] MEDS: FUROSEMIDE 20 MG TAB PO SCH (17:05)
[2016-08-23] MEDS: HYDROcodone/APAP 7.5-325MG 1 EACH TAB PO SCH ×3 (17:05→23:57)
[2016-08-23 17:19] LABS: Glucose,Whole Blood 296 mg/dL (75-99)
[2016-08-23] MEDS: GABAPENTIN 300 MG CAP PO SCH (19:56)
[2016-08-23] MEDS ORDERED: MAGNESIUM OXIDE 400 MG TAB PO SCH (21:00)
[2016-08-23] MEDS ORDERED: METOPROLOL TARTRATE 25 MG TAB PO SCH (21:00)
[2016-08-23] MEDS ORDERED: PANTOPRAZOLE 40 MG TABLET PO SCH (21:00)
[2016-08-23] MEDS ORDERED: FERROUS SULFATE 325 MG TAB PO SCH (21:00)
[2016-08-23] MEDS ORDERED: TAMSULOSIN 0.4 MG CAP.ER.24H PO SCH (21:00)
[2016-08-23 21:05] LABS: Glucose,Whole Blood 326 mg/dL (75-99)
[2016-08-24] MEDS: HYDROcodone/APAP 7.5-325MG 1 EACH TAB PO SCH ×4 (02:57→18:24)
[2016-08-24] MEDS ORDERED: LEVOTHYROXINE 75 MCG TAB PO SCH (06:30)
[2016-08-24 06:41] LABS: Glucose,Whole Blood 188 mg/dL (75-99)
[2016-08-24 07:24] LABS: ALT 47 U/L (21-72); AST 33 U/L (17-59); Alkaline Phosphatase 189 U/L (38-126); Amylase 51 U/L (30-110); Anion Gap 8 mmol/L; Blood Urea Nitrogen 24 mg/dL (9-20); Calcium 8.9 mg/dL (8.4-10.2); Carbon Dioxide 26 mmol/L (22-30); Chloride 103 mmol/L (98-107); Glucose 173 mg/dL (74-99); Non-African American GFR(MDRD) 53 (>60 ml/min/1.73 sqM); Potassium 4.3 mmol/L (3.5-5.1); Sodium 137 mmol/L (137-145); Total Bilirubin 0.6 mg/dL (0.2-1.3); Total Protein 5.8 g/dL (6.3-8.2)
[2016-08-24] MEDS ORDERED: INSULIN GLARGINE 100 UNIT/ML 10 ML VIAL SQ SCH (07:30)
[2016-08-24] MEDS ORDERED: CYANOCOBALAMIN 500 MCG TAB PO SCH (07:30)
[2016-08-24 07:34] LABS: Basophils % (A) 0 %; CH 30.2; CHCM 32.4; Eosinophils # (A) 0.2 k/uL (0-0.7); Eosinophils % (A) 2 %; HCT 28.9 % (39.0-53.0); HDW 2.47; Luc # (Auto) 0.17; Luc % (Auto) 2; Lymphocytes # (A) 2.2 k/uL (1.0-4.8); Lymphocytes % (A) 28 %; MCH 30.1 pg (25.0-35.0); MCHC 32.2 g/dL (31.0-37.0); MCV 93.8 fL (80.0-100.0); Mean Platelet Volume 7.3; Monocytes # (A) 0.5 k/uL (0-1.0); Monocytes % (A) 6 %; Neutrophils % (A) 62 %; RBC 3.08 m/uL (4.30-5.90); RDW 13.4 % (11.5-15.5); WBC (Perox) 8.52
[2016-08-24 07:54] LABS: HGB 9.3 gm/dL (13.0-17.5)
[2016-08-24 08:09] VITALS: RESP 18
--- NOTE | 2016-08-24 08:47 | P.PN ---
Subjective Principal diagnosis: Abdominal pain history of liver abscess 86-year-old gentleman with a history of liver abscess status post ERCP yesterday with findings of choledocholithiasis status post enterotomy of biliary stent placement unable to extract stones. Feels well this morning. Tolerating diet. Afebrile. Hemoglobin 9.3. Denies chest pain or shortness of breath. Objective - Vital Signs Vital signs: Vital Signs Temp 97.5 F L 08/24/16 08:00 Pulse 50 L 08/24/16 08:00 Resp 18 08/24/16 08:00 BP 106/52 08/24/16 08:00 Pulse Ox 94 L 08/24/16 08:00 Intake & Output 08/23/16 08/24/16 08/24/16 18:59 06:59 18:59 Intake Total 1034 850 Balance 1034 850 Weight 108.862 kg Intake: IV 500 400 Sodium Chloride 0.9% 1, 400 000 ml @ 50 mls/hr IV . Q20H ANNIE Rx#:[id number] Oral 534 450 Other: # Voids 1 - Exam General appearance: The patient is alert, oriented, in no acute distress. HET: Head is normocephalic and atraumatic. Scalp dressing clean dry and intact. Pupils are equal and reactive. Oropharynx is clear without lesions. Neck: Supple without lymphadenopathy. Trachea midline. Heart: S1 S2. Regular rate and rhythm. Lungs: No crackles or wheezes are heard. Abdomen: Soft, nontender, nondistended with bowel sounds. No peritoneal signs. No palpable organomegaly or masses. Extremities: Normal skin color and turgor. No cyanosis, rash, ulceration, clubbing, or edema. Radial and pedal pulses are 2/4 bilaterally. Neurological: No focal deficits. Strength and sensation are grossly intact. - Labs CBC & Chem 7: 08/24/16 06:31 08/24/16 06:31 Labs: Abnormal Lab Results - Last 24 Hours (Table) 08/23/16 08/23/16 08/23/16 Range/Units 08:39 08:45 08:45 RBC 3.58 L (4.30-5.90) m/uL Hgb 11.1 L (13.0-17.5) gm/dL Hct 33.3 L (39.0-53.0) % BUN 22 H (9-20) mg/dL Creatinine (0.66-1.25) mg/dL Glucose 228 H (74-99) mg/dL POC Glucose (mg/dL) 209 H (75-99) mg/dL Hemoglobin A1c (4.2-6.1) % Alkaline Phosphatase 233 H (38-126) U/L Total Protein (6.3-8.2) g/dL Albumin (3.5-5.0) g/dL 08/23/16 08/23/16 08/23/16 Range/Units 11:09 11:56 17:11 RBC (4.30-5.90) m/uL Hgb (13.0-17.5) gm/dL Hct (39.0-53.0) % BUN (9-20) mg/dL Creatinine (0.66-1.25) mg/dL Glucose (74-99) mg/dL POC Glucose (mg/dL) 252 H 296 H (75-99) mg/dL Hemoglobin A1c 9.8 H (4.2-6.1) % Alkaline Phosphatase (38-126) U/L Total Protein (6.3-8.2) g/dL Albumin (3.5-5.0) g/dL 08/23/16 08/24/16 08/24/16 Range/Units 20:40 06:31 06:31 RBC 3.08 L (4.30-5.90) m/uL Hgb 9.3 L D (13.0-17.5) gm/dL Hct 28.9 L (39.0-53.0) % BUN 24 H (9-20) mg/dL Creatinine 1.29 H (0.66-1.25) mg/dL Glucose 173 H (74-99) mg/dL POC Glucose (mg/dL) 326 H (75-99) mg/dL Hemoglobin A1c (4.2-6.1) % Alkaline Phosphatase 189 H (38-126) U/L Total Protein 5.8 L (6.3-8.2) g/dL Albumin 2.7 L (3.5-5.0) g/dL 08/24/16 Range/Units 06:38 RBC (4.30-5.90) m/uL Hgb (13.0-17.5) gm/dL Hct (39.0-53.0) % BUN (9-20) mg/dL Creatinine (0.66-1.25) mg/dL Glucose (74-99) mg/dL POC Glucose (mg/dL) 188 H (75-99) mg/dL Hemoglobin A1c (4.2-6.1) % Alkaline Phosphatase (38-126) U/L Total Protein (6.3-8.2) g/dL Albumin (3.5-5.0) g/dL Assessment and Plan (1) Choledocholithiasis Narrative/Plan: 86-year-old gentleman with a history of liver abscess February 2017 with recent hospital physician for abdominal pain and fever with CT imaging suggestive of isolated intrahepatic biliary ductal dilatation with a left lobe of the liver status post ERCP with findings and common bile duct filling defect consistent with choledocholithiasis unable to extract stone status post sphincterotomy and biliary stent placement. Status: Acute (2) Insulin dependent diabetes mellitus Status: Chronic (3) Skin carcinoma Narrative/Plan: Skin carcinoma the scalp Status: Chronic Plan: 1. Repeat CBC at noon if stable will discharge today. 2. Return to GI office in 3-4 weeks for reevaluation. 3. Actigall 3 mg twice daily. 4. Change scalp dressing. Assessment and plan a care discussed with Dr. Kat.
[2016-08-24] MEDS ORDERED: LORATADINE 10 MG TAB PO SCH (09:00)
[2016-08-24] MEDS ORDERED: FOLIC ACID 1 MG TAB PO SCH (09:00)
[2016-08-24] MEDS ORDERED: metFORMIN 500 MG TAB PO SCH (09:00)
[2016-08-24] MEDS ORDERED: NON-FORMULARY DRUG (Ubidecarenone [Co Q-10] 200 MG) PO SCH (09:00)
[2016-08-24] MEDS ORDERED: CIPROFLOXACIN HCL 500 MG TAB PO SCH (09:00)
[2016-08-24] MEDS ORDERED: POTASSIUM CHLORIDE ER 20 MEQ TAB.ER PO SCH (09:00)
[2016-08-24] MEDS ORDERED: NON-FORMULARY DRUG (Omega-3 Fatty Acids/Fish Oil [Fish Oil 1,000 Mg Softgel] 1 CAP) PO SCH (09:00)
[2016-08-24] MEDS ORDERED: LISINOPRIL 5 MG TAB PO SCH (09:00)
[2016-08-24] MEDS: URSODIOL 300 MG CAP PO SCH ×2 (09:13→18:24)
[2016-08-24] MEDS: FUROSEMIDE 20 MG TAB PO SCH ×2 (09:14→18:24)
[2016-08-24] MEDS: GABAPENTIN 300 MG CAP PO SCH (09:14)
[2016-08-24] MEDS: INSULIN LISPRO (humaLOG) 300 UNIT/3 ML VIAL SQ SCH ×3 (10:28→18:26)
[2016-08-24] MEDS: SODIUM CHLORIDE 0.9% 1,000 ML IV SCH (10:29)
[2016-08-24 12:09] LABS: Basophils % (A) 0 %; CH 30.5; CHCM 31.8; Eosinophils # (A) 0.2 k/uL (0-0.7); Eosinophils % (A) 2 %; HDW 2.41; Luc # (Auto) 0.14; Luc % (Auto) 2; Lymphocytes # (A) 2.1 k/uL (1.0-4.8); Lymphocytes % (A) 26 %; MCH 30.2 pg (25.0-35.0); MCHC 31.4 g/dL (31.0-37.0); MCV 96.2 fL (80.0-100.0); Mean Platelet Volume 7.4; Monocytes # (A) 0.5 k/uL (0-1.0); Monocytes % (A) 7 %; Neutrophils # (A) 5.1 k/uL (1.3-7.7); Neutrophils % (A) 63 %; RBC 3.32 m/uL (4.30-5.90); RDW 13.5 % (11.5-15.5); WBC (Perox) 8.33
[2016-08-24 12:42] LABS: Glucose,Whole Blood 238 mg/dL (75-99)
[2016-08-24] MEDS: LACTATED RINGERS 1,000 ML IV SCH (13:29)
[2016-08-24 15:43] VITALS: BP 116/56; PULSE 93; TEMP 97.9
[2016-08-24 17:21] LABS: Glucose,Whole Blood 167 mg/dL (75-99)
== END 2016-08-24 18:55 | disposition home or self-care (01) ==
LOC: ORWHC2ENDO 07:59 → 3OBS 10:28 → ORWHC2ENDO 08-24 18:55
DX: K80.50 Calculus of bile duct without cholangitis or cholecystitis without obstruction (principal); R17 Unspecified jaundice; E11.9 Type 2 diabetes mellitus without complications; C44.40 Unspecified malignant neoplasm of skin of scalp and neck; K75.0 Abscess of liver; I10 Essential (primary) hypertension; K21.9 Gastro-esophageal reflux disease without esophagitis; G47.33 Obstructive sleep apnea (adult) (pediatric); E07.9 Disorder of thyroid, unspecified; E78.5 Hyperlipidemia, unspecified; M19.90 Unspecified osteoarthritis, unspecified site; Z95.0 Presence of cardiac pacemaker; Z79.84 Long term (current) use of oral hypoglycemic drugs; Z79.82 Long term (current) use of aspirin; Z79.4 Long term (current) use of insulin; Z79.891 Long term (current) use of opiate analgesic; Z79.899 Other long term (current) drug therapy; Z91.041 Radiographic dye allergy status; Z87.891 Personal history of nicotine dependence; F41.9 Anxiety disorder, unspecified; F32.9 Major depressive disorder, single episode, unspecified
CPT/HCPCS: 80053 ×2; 82150; 83036; 83690; 85025 ×2; 85610; 85730; 74330; 43274; 43262; J1200; J1720; J1956; J2704; Q9967; C2625; 43277

== ENCOUNTER 2016-08-30 17:30 | Inpatient (IN) | payer MEDICARE, BC ==
--- NOTE | 2016-08-30 18:09 | ED ---
General Adult HPI - General Chief complaint: Chest Pain Stated complaint: Chest pain Time Seen by Provider: 08/30/16 18:00 Source: patient, RN notes reviewed Mode of arrival: wheelchair Limitations: no limitations - History of Present Illness Initial comments: This is an 86-year-old male who presents emergency Department complaining of chest pain. Patient states been taking a medication for his liver and he believes that is the cause of his chest pain as well as abdominal pain that he has been having. Patient states been ongoing for 2 days. Patient states the pain is sharp in nature and comes and goes quickly. Patient states currently he is having no chest pain but he is having abdominal pain. Patient denies any nausea vomiting diarrhea. Patient denies any difficulty breathing or shortness of breath per patient denies any radiation of the pain to the back neck or arm. Patient denies any recent fever chills or cough. Patient states his been on the medication about 10 days and when he called the physician who prescribed he was told that the medication will cause abdominal discomfort as well as some chest pain occasionally. - Related Data Home Medications Medication Instructions Recorded Confirmed Aspirin EC [Ecotrin Low Dose] 81 mg PO DAILY 10/13/14 08/30/16 Cyanocobalamin [Vitamin B-12] 500 mcg PO DAILY 10/13/14 08/30/16 Folic Acid 1 mg PO DAILY 10/13/14 08/30/16 Lisinopril [Zestril] 5 mg PO DAILY 10/13/14 08/30/16 Omeprazole [PriLOSEC] 20 mg PO HS 10/13/14 08/30/16 [place]-3 Fatty Acids/Fish Oil [Fish 1 cap PO DAILY 08/24/15 08/30/16 Oil 1,000 mg Softgel] Potassium Chloride ER [K-Dur 20] 20 meq PO DAILY 08/24/15 08/30/16 Levothyroxine Sodium [Synthroid] 75 mcg PO DAILY 02/21/16 08/30/16 metFORMIN HCL 1,000 mg PO DAILY@0900 02/21/16 08/30/16 Fluticasone Nasal [place] [Flonase 2 spray EA NOSTRIL DAILY PRN 03/25/16 08/30/16 Nasal [place]] Loratadine 10 mg PO DAILY 03/25/16 08/30/16 Magnesium Oxide [Mag-Ox] 400 mg PO HS 03/25/16 08/30/16 Tamsulosin [Flomax] 0.4 mg PO HS 03/25/16 08/30/16 Ferrous Sulfate [Feosol] 325 mg PO HS 08/11/16 08/30/16 Gabapentin [Neurontin] 300 mg PO BID 08/11/16 08/30/16 HYDROcodone/APAP 7.5-325MG [[place] 1 tab PO Q4H PRN 08/11/16 08/30/16 7.5-325] Insulin Aspart [NovoLOG] See Protocol SQ BID 08/11/16 08/30/16 Insulin Glargine [Lantus] 30 unit SQ AC-BRKFST 08/11/16 08/30/16 Metoprolol Tartrate [Lopressor] 25 mg PO HS 08/11/16 08/30/16 Ubidecarenone [Co Q-10] 200 mg PO DAILY 08/11/16 08/30/16 Ursodiol [[place]] 250 mg PO AC-BID 08/30/16 08/30/16 Previous Rx's Medication Instructions Recorded Furosemide [Lasix] 20 mg PO BID@0900,1600 tab 02/26/16 Ciprofloxacin HCl [Cipro] 500 mg PO Q12HR #28 tablet 08/15/16 Allergies Allergy/AdvReac Type Severity Reaction Status Date / Time Ibpqrpo-Zpd-Eyl Reductase AdvReac Unknown Unknown Verified 08/30/16 18:56 Inhibitor Iodinated Contrast Media - AdvReac shakes Verified 08/30/16 18:56 Oral and [Iodinated Contrast Media - IV Dye] Review of Systems ROS Statement: Those systems with pertinent positive or pertinent negative responses have been documented in the HPI. ROS Other: All systems not noted in ROS Statement are negative. Past Medical History Past Medical History: Cancer, Diabetes Mellitus, GERD/Reflux, Hyperlipidemia, Hypertension, Osteoarthritis (OA), Sleep Apnea/CPAP/BIPAP, Thyroid Disorder Additional Past Medical History / Comment(s): HX jaundice age 11, SKIN CANCER- removal recently on head with open wound , SWELLING of ankles, hx ANEMIA, USES CANE, bradycardia, hiatal hernia, hs ulcer, History of Any Multi-Drug Resistant Organisms: None Reported Past Surgical History: Appendectomy, Cholecystectomy, Hernia Repair, Pacemaker, Tonsillectomy Additional Past Surgical History / Comment(s): lana CATARACTS WITH LENS IMPLANT, SKIN CANCER SURG. Past Anesthesia/Blood Transfusion Reactions: No Reported Reaction Type of Cardiac Device: Permanent Pacemaker Device Placement Date:: 08/2015 Past Psychological History: Anxiety, Depression Additional Psychological History / Comment(s): . Smoking Status: Former smoker Past Alcohol Use History: None Reported Additional Past Alcohol Use History / Comment(s): SMOKED FOR APPROX 19 YEARS. 1PPD. QUIT SMOKING AT AGE 34. Past Drug Use History: None Reported - Past Family History Mother Family Medical History: No Reported History, Cancer Additional Family Medical History / Comment(s): LEUKEMIA Father Additional Family Medical History / Comment(s): WOUNDED IN WW1, MULTIPLE INJURES -LIVED TILL AGE 89 Brother(s) Family Medical History: Cancer General Exam - General Exam Comments Initial Comments: GENERAL: Patient is well-developed and well-nourished. Patient is nontoxic and well- hydrated and is in no acute distress. ENT: Neck is soft and supple. No significant lymphadenopathy is noted. Oropharynx is clear. Moist mucous membranes. Neck has full range of motion without eliciting any pain. EYES: The sclera were anicteric and conjunctiva were pink and moist. Extraocular movements were intact and pupils were equal round and reactive to light. Eyelids were unremarkable. PULMONARY: Unlabored respirations. Good breath sounds bilaterally. No audible rales rhonchi or wheezing was noted. CARDIOVASCULAR: There is a regular rate and rhythm without any murmurs gallops or rubs. ABDOMEN: Soft and nontender with normal bowel sounds. No palpable organomegaly was noted. There is no palpable pulsatile mass. SKIN: Skin is clear with no lesions or rashes and otherwise unremarkable. NEUROLOGIC: Patient is alert and oriented x3. Cranial nerves II through XII are grossly intact. Motor and sensory are also intact. Normal speech, volume and content. Symmetrical smile. MUSCULOSKELETAL: Normal extremities with adequate strength and full range of motion. LYMPHATICS: No significant lymphadenopathy is noted PSYCHIATRIC: Normal psychiatric evaluation. Limitations: no limitations Course Vital Signs 08/30/16 08/30/16 17:45 18:54 Temperature 98.5 F Pulse Rate 80 84 Respiratory 16 20 Rate Blood Pressure 215/84 188/79 O2 Sat by Pulse 96 99 Oximetry Medical Decision Making - Medical Decision Making EKG shows a sinus rhythm at 80 bpm CO interval is 254 QRS is 138 QT interval 384 QTC is 442. Patient has a right bundle branch block I compared this EKG to an old EKG and I see no acute abnormalities patient does have T-wave inversions in leads V1 through V4 but they are the same from an old EKG. I spoke with Dr. Bailey he wanted to admit the patient and consult Dr. Estrada - Lab Data Result diagrams: 08/30/16 18:18 08/30/16 18:18 Lab Results 08/30/16 08/30/16 08/30/16 Range/Units 18:18 18:18 18:18 WBC 8.4 (3.8-10.6) k/uL RBC 3.75 L (4.30-5.90) m/uL Hgb 11.4 L (13.0-17.5) gm/dL Hct 35.6 L (39.0-53.0) % MCV 94.9 (80.0-100.0) fL MCH 30.4 (25.0-35.0) pg MCHC 32.0 (31.0-37.0) g/dL RDW 13.3 (11.5-15.5) % Plt Count 209 (150-450) k/uL Neutrophils % 76 % Lymphocytes % 12 % Monocytes % 8 % Eosinophils % 1 % Basophils % 1 % Neutrophils # 6.3 (1.3-7.7) k/uL Lymphocytes # 1.0 (1.0-4.8) k/uL Monocytes # 0.7 (0-1.0) k/uL Eosinophils # 0.1 (0-0.7) k/uL Basophils # 0.1 (0-0.2) k/uL PT (9.0-12.0) sec INR (<1.1) APTT (22.0-30.0) sec Sodium 136 L (137-145) mmol/L Potassium 4.7 (3.5-5.1) mmol/L Chloride 98 (98-107) mmol/L Carbon Dioxide 28 (22-30) mmol/L Anion Gap 10 mmol/L BUN 13 (9-20) mg/dL Creatinine 1.11 (0.66-1.25) mg/dL Est GFR (MDRD) Af Amer >60 (>60 ml/min/1.73 sqM) Est GFR (MDRD) Non-Af >60 (>60 ml/min/1.73 sqM) Glucose 200 H (74-99) mg/dL Calcium 9.4 (8.4-10.2) mg/dL Magnesium 1.6 (1.6-2.3) mg/dL Total Bilirubin 3.1 H (0.2-1.3) mg/dL AST 515 H (17-59) U/L ALT 253 H (21-72) U/L Alkaline Phosphatase 291 H (38-126) U/L Total Creatine Kinase 53 L (55-170) U/L CK-MB (CK-2) 1.6 (0.0-2.4) ng/mL CK-MB (CK-2) Rel Index 3.0 Troponin I 0.013 (0.000-0.034) ng/mL Total Protein 7.4 (6.3-8.2) g/dL Albumin 3.7 (3.5-5.0) g/dL Amylase 40 (30-110) U/L Lipase 44 (23-300) U/L 08/30/16 Range/Units 18:18 WBC (3.8-10.6) k/uL RBC (4.30-5.90) m/uL Hgb (13.0-17.5) gm/dL Hct (39.0-53.0) % MCV (80.0-100.0) fL MCH (25.0-35.0) pg MCHC (31.0-37.0) g/dL RDW (11.5-15.5) % Plt Count (150-450) k/uL Neutrophils % % Lymphocytes % % Monocytes % % Eosinophils % % Basophils % % Neutrophils # (1.3-7.7) k/uL Lymphocytes # (1.0-4.8) k/uL Monocytes # (0-1.0) k/uL Eosinophils # (0-0.7) k/uL Basophils # (0-0.2) k/uL PT 10.2 (9.0-12.0) sec INR 1.0 (<1.1) APTT 22.7 (22.0-30.0) sec Sodium (137-145) mmol/L Potassium (3.5-5.1) mmol/L Chloride (98-107) mmol/L Carbon Dioxide (22-30) mmol/L Anion Gap mmol/L BUN (9-20) mg/dL Creatinine (0.66-1.25) mg/dL Est GFR (MDRD) Af Amer (>60 ml/min/1.73 sqM) Est GFR (MDRD) Non-Af (>60 ml/min/1.73 sqM) Glucose (74-99) mg/dL Calcium (8.4-10.2) mg/dL Magnesium (1.6-2.3) mg/dL Total Bilirubin (0.2-1.3) mg/dL AST (17-59) U/L ALT (21-72) U/L Alkaline Phosphatase (38-126) U/L Total Creatine Kinase (55-170) U/L CK-MB (CK-2) (0.0-2.4) ng/mL CK-MB (CK-2) Rel Index Troponin I (0.000-0.034) ng/mL Total Protein (6.3-8.2) g/dL Albumin (3.5-5.0) g/dL Amylase (30-110) U/L Lipase (23-300) U/L Disposition Clinical Impression: Abdominal pain, Elevated liver enzymes, Chest pain Disposition: ADMITTED IP TO THIS [facility] Time of Disposition: 19:25
[2016-08-30 18:26] LABS: Basophils # (A) 0.1 k/uL (0-0.2); Basophils % (A) 1 %; CH 30.7; CHCM 32.5; Eosinophils # (A) 0.1 k/uL (0-0.7); Eosinophils % (A) 1 %; HCT 35.6 % (39.0-53.0); HDW 2.53; HGB 11.4 gm/dL (13.0-17.5); Luc # (Auto) 0.09; Luc % (Auto) 1; Lymphocytes % (A) 12 %; MCH 30.4 pg (25.0-35.0); MCV 94.9 fL (80.0-100.0); Mean Platelet Volume 7.5; Monocytes # (A) 0.7 k/uL (0-1.0); Monocytes % (A) 8 %; Neutrophils # (A) 6.3 k/uL (1.3-7.7); Neutrophils % (A) 76 %; RBC 3.75 m/uL (4.30-5.90); RDW 13.3 % (11.5-15.5); WBC 8.4 k/uL (3.8-10.6); WBC (Perox) 8.35
[2016-08-30 18:34] LABS: Prothrombin Time 10.2 sec (9.0-12.0)
[2016-08-30 18:35] LABS: Partial Thromboplastin Time 22.7 sec (22.0-30.0)
--- NOTE | 2016-08-30 18:37 | XR ---
EXAMINATION TYPE: XR chest 2V DATE OF EXAM: 08/30/2016 6:31 PM COMPARISON: 08/11/2016 HISTORY: Chest pain TECHNIQUE: Frontal and lateral views of the chest are obtained. FINDINGS: There is coarsening of interstitial markings. There is no gross heart failure. Heart appea rs enlarged. There is a left axillary pacemaker with the lead tips in right ventricle. There is no si gn of pleural effusion. IMPRESSION: Mild pulmonary fibrotic changes. No heart failure. Mild cardiomegaly. No change.
[2016-08-30 18:41] LABS: ALT 253 U/L (21-72); AST 515 U/L (17-59); Alkaline Phosphatase 291 U/L (38-126); Amylase 40 U/L (30-110); Anion Gap 10 mmol/L; Blood Urea Nitrogen 13 mg/dL (9-20); Calcium 9.4 mg/dL (8.4-10.2); Carbon Dioxide 28 mmol/L (22-30); Chloride 98 mmol/L (98-107); Glucose 200 mg/dL (74-99); Magnesium 1.6 mg/dL (1.6-2.3); Non-African American GFR(MDRD) >60 (>60 ml/min/1.73 sqM); Potassium 4.7 mmol/L (3.5-5.1); Sodium 136 mmol/L (137-145); Total Bilirubin 3.1 mg/dL (0.2-1.3); Total Protein 7.4 g/dL (6.3-8.2)
[2016-08-30] MEDS ORDERED: HYDROcodone/APAP 7.5-325MG 1 EACH TAB PO ONE (18:51)
[2016-08-30 18:55] LABS: Creatine Kinase MB 1.6 ng/mL (0.0-2.4); Troponin I 0.013 ng/mL (0.000-0.034)
[2016-08-30] MEDS ORDERED: ONDANSETRON 4 MG/2 ML VIAL IVP STA (19:03)
[2016-08-30] MEDS ORDERED: SODIUM CHLORIDE 0.9% 1,000 ML IV ONE (19:25)
[2016-08-30] MEDS ORDERED: MAG HYDROX/AL HYDROX/SIMETH 30 ML CUP PO PRN (20:44)
[2016-08-30 21:44] LABS: Glucose,Whole Blood 183 mg/dL (75-99)
[2016-08-30] MEDS ORDERED: FLUTICASONE 50MCG/SPRAY NASAL 16GM EA NOSTRIL PRN (22:03)
[2016-08-30 22:27] VITALS: BMI 33.3
[2016-08-30] MEDS: HYDROcodone/APAP 7.5-325MG 1 EACH TAB PO PRN (22:31)
[2016-08-30] MEDS ORDERED: CALCIUM CARBONATE 500 MG CHEWABLE PO PRN (22:42)
[2016-08-30] MEDS: METOPROLOL TARTRATE 25 MG TAB PO SCH (23:25)
[2016-08-31] MEDS: HYDROcodone/APAP 7.5-325MG 1 EACH TAB PO PRN ×5 (03:30→20:09)
[2016-08-31 06:26] LABS: Glucose,Whole Blood 170 mg/dL (75-99)
[2016-08-31] MEDS: INSULIN LISPRO (humaLOG) 300 UNIT/3 ML VIAL SQ SCH ×4 (06:30→22:24)
[2016-08-31] MEDS: LEVOTHYROXINE 75 MCG TAB PO SCH (06:30)
[2016-08-31 06:49] LABS: ALT 324 U/L (21-72); AST 449 U/L (17-59); Alkaline Phosphatase 309 U/L (38-126); Anion Gap 10 mmol/L; Blood Urea Nitrogen 12 mg/dL (9-20); Calcium 8.8 mg/dL (8.4-10.2); Carbon Dioxide 27 mmol/L (22-30); Chloride 99 mmol/L (98-107); Glucose 183 mg/dL (74-99); Non-African American GFR(MDRD) 58 (>60 ml/min/1.73 sqM); Sodium 136 mmol/L (137-145); Total Bilirubin 4.4 mg/dL (0.2-1.3); Total Protein 6.5 g/dL (6.3-8.2)
[2016-08-31 07:15] LABS: Basophils % (A) 0 %; CHCM 31.5; Eosinophils % (A) 0 %; HCT 32.9 % (39.0-53.0); HDW 2.42; HGB 10.4 gm/dL (13.0-17.5); Luc # (Auto) 0.13; Luc % (Auto) 1; Lymphocytes # (A) 1.3 k/uL (1.0-4.8); Lymphocytes % (A) 12 %; MCH 30.1 pg (25.0-35.0); MCHC 31.5 g/dL (31.0-37.0); MCV 95.6 fL (80.0-100.0); Mean Platelet Volume 6.9; Monocytes % (A) 10 %; Neutrophils # (A) 8.2 k/uL (1.3-7.7); Neutrophils % (A) 77 %; RBC 3.45 m/uL (4.30-5.90); RDW 13.3 % (11.5-15.5); WBC 10.6 k/uL (3.8-10.6); WBC (Perox) 11.43
[2016-08-31] MEDS ORDERED: URSODIOL 250 MG PO SCH (07:30)
[2016-08-31] MEDS: INSULIN GLARGINE 100 UNIT/ML 10 ML VIAL SQ SCH (08:23)
[2016-08-31] MEDS: metFORMIN 500 MG TAB PO SCH (08:24)
[2016-08-31] MEDS: LISINOPRIL 5 MG TAB PO SCH (08:52)
[2016-08-31] MEDS: POTASSIUM CHLORIDE ER 20 MEQ TAB.ER PO SCH (08:53)
[2016-08-31] MEDS: GABAPENTIN 300 MG CAP PO SCH ×2 (08:53→21:58)
[2016-08-31] MEDS: LORATADINE 10 MG TAB PO SCH (08:53)
[2016-08-31] MEDS: ASPIRIN 81 MG CHEW PO SCH (08:53)
[2016-08-31] MEDS: FUROSEMIDE 20 MG TAB PO SCH ×2 (08:53→17:04)
--- NOTE | 2016-08-31 09:47 | P.CONS ---
History of Present Illness - Reason for Consult Consult date: 08/31/16 jaundice elevated liver enzymes Requesting physician: Lazaro Bailey - History of Present Illness 86-year-old gentleman patient Dr. Bailey with a past medical history of liver abscess February 2016, malaria, skin carcinoma, pacemaker, cholelithiasis status post cholecystectomy, open ventral hernia repair, diabetes mellitus, hypertension, appendectomy, sleep apnea, anxiety, and depression. Admitted with jaundice without fever and midepigastric/lower sternal chest pain. Denies hematemesis, hematochezia, melena. Intermittent nausea and no emesis. Patient was hospitalized August 12 with fever and suspected recurrent liver abscess however Ct imaging reported dilation of biliary tree. He underwent ERCP evaluation on 08/23/2016 with findings of large retained CBD stone with unsuccessful extraction status post placement of biliary stent. He was discharged with Actigall twice daily and continuance of Cipro 500 mg twice daily. At that time his transaminases and bilirubin were unremarkable. He returns to the hospital yesterday with new onset of jaundice. Total bilirubin 3.1 currently 4.4. AST 449-515. ALT 253-324. Alkaline phosphatase 291-309. Troponin 0.048-0.049. Chronically reports back and neck pain as well as mid sternal/epigastric discomfort. Requests [place] every 4 hours for his pain. Review of Systems Constitutional: Denies fever, chills, sweats, weight gain, or loss. HEENT: Negative for migraines, blurred vision or loss, earaches, drainage, tinnitus, oral mucosal lesions, dysphagia, or odynophagia. Cardiac: Hypertension. Hyperlipidemia. Pacemaker. Bradycardia. Respiratory: Negative for shortness of breath, hemoptysis, cough, or sputum production. Gastrointestinal: See HPI for pertinent findings. Genitourinary: Negative for hematuria, urgency, frequency, polyuria, dysuria, or penile discharge. Musculoskeletal: Chronic pain. Neurologic: Negative for stroke or TIA. Endocrine: Diabetes mellitus. Negative for thyroid problems. Skin: Negative for rash or itching. Skin carcinoma. Psychiatric: History for depression and anxiety. Hematology: Malaria. All systems: negative (See HPI) Past Medical History Past Medical History: Cancer, Diabetes Mellitus, GERD/Reflux, Hyperlipidemia, Hypertension, Liver Disease, Osteoarthritis (OA), Sleep Apnea/CPAP/BIPAP, Thyroid Disorder Additional Past Medical History / Comment(s): HX jaundice age 11, SKIN CANCER- removal recently on head with open wound , SWELLING of ankles, hx ANEMIA, USES CANE, bradycardia, hiatal hernia, hs ulcer, History of Any Multi-Drug Resistant Organisms: None Reported Past Surgical History: Appendectomy, Cholecystectomy, Hernia Repair, Pacemaker, Tonsillectomy Additional Past Surgical History / Comment(s): lana CATARACTS WITH LENS IMPLANT, SKIN CANCER removed from head x3 Past Anesthesia/Blood Transfusion Reactions: No Reported Reaction Type of Cardiac Device: Permanent Pacemaker Device Placement Date:: 08/2015 Past Psychological History: Anxiety, Depression Additional Psychological History / Comment(s): . Smoking Status: Former smoker Past Alcohol Use History: None Reported Additional Past Alcohol Use History / Comment(s): SMOKED FOR APPROX 19 YEARS. 1PPD. QUIT SMOKING AT AGE 34. Past Drug Use History: None Reported - Past Family History Mother Family Medical History: No Reported History, Cancer Additional Family Medical History / Comment(s): LEUKEMIA Father Additional Family Medical History / Comment(s): WOUNDED IN WW1, MULTIPLE INJURES -LIVED TILL AGE 89 Brother(s) Family Medical History: Cancer Medications and Allergies Home Medications Medication Instructions Recorded Confirmed Type Aspirin EC [Ecotrin Low Dose] 81 mg PO DAILY 10/13/14 08/30/16 History Cyanocobalamin [Vitamin B-12] 500 mcg PO DAILY 10/13/14 08/30/16 History Folic Acid 1 mg PO DAILY 10/13/14 08/30/16 History Lisinopril [Zestril] 5 mg PO DAILY 10/13/14 08/30/16 History Omeprazole [PriLOSEC] 20 mg PO HS 10/13/14 08/30/16 History [place]-3 Fatty Acids/Fish Oil [Fish 1 cap PO DAILY 08/24/15 08/30/16 History Oil 1,000 mg Softgel] Potassium Chloride ER [K-Dur 20] 20 meq PO DAILY 08/24/15 08/30/16 History Levothyroxine Sodium [Synthroid] 75 mcg PO DAILY 02/21/16 08/30/16 History metFORMIN HCL 1,000 mg PO DAILY@0900 02/21/16 08/30/16 History Fluticasone Nasal [place] [Flonase 2 spray EA NOSTRIL DAILY PRN 03/25/16 08/30/16 History Nasal [place]] Loratadine 10 mg PO DAILY 03/25/16 08/30/16 History Magnesium Oxide [Mag-Ox] 400 mg PO HS 03/25/16 08/30/16 History Tamsulosin [Flomax] 0.4 mg PO HS 03/25/16 08/30/16 History Ferrous Sulfate [Feosol] 325 mg PO HS 08/11/16 08/30/16 History Gabapentin [Neurontin] 300 mg PO BID 08/11/16 08/30/16 History HYDROcodone/APAP 7.5-325MG [[place] 1 tab PO Q4H PRN 08/11/16 08/30/16 History 7.5-325] Insulin Aspart [NovoLOG] See Protocol SQ BID 08/11/16 08/30/16 History Insulin Glargine [Lantus] 30 unit SQ AC-BRKFST 08/11/16 08/30/16 History Metoprolol Tartrate [Lopressor] 25 mg PO HS 08/11/16 08/30/16 History Ubidecarenone [Co Q-10] 200 mg PO DAILY 08/11/16 08/30/16 History Ursodiol [Marcos] 250 mg PO AC-BID 08/30/16 08/30/16 History Allergies Allergy/AdvReac Type Severity Reaction Status Date / Time [id number] Reductase AdvReac Unknown Unknown Verified 08/30/16 18:56 Inhibitor Iodinated Contrast Media - AdvReac shakes Verified 08/30/16 18:56 Oral and [Iodinated Contrast Media - IV Dye] Physical Exam Vitals: Vital Signs Temp Pulse Pulse Resp BP BP Pulse Ox 08/31/16 04:00 97.8 F 76 18 131/63 94 L 08/31/16 00:00 96.8 F L 94 18 154/69 94 L 08/30/16 20:58 97.9 F 90 20 172/76 96 08/30/16 20:23 98 F 89 22 160/70 96 Intake and Output 08/30/16 08/31/16 08/31/16 22:59 06:59 14:59 Intake Total 300 800 Balance 300 800 Intake: IV 300 800 Sodium Chloride 0.9% 1, 300 800 000 ml @ 100 mls/hr IV . Q10H ONE Rx#:[id number] Other: Voiding Method Toilet Urinal # Voids 1 Weight 111.584 kg 108.8 kg General appearance: The patient is alert, oriented, in no acute distress. Jaundice. HET: Head is normocephalic and atraumatic. Scalp dressing clean without drainage. Pupils are equal and reactive. Sclerae icterus. Oropharynx is clear without lesions. Neck: Supple without lymphadenopathy. Trachea midline. Heart: S1 S2. Regular rate and rhythm. Lungs: No crackles or wheezes are heard. Abdomen: Soft, tenderness midepigastrium, nondistended with bowel sounds. No peritoneal signs. No palpable organomegaly or masses. Extremities: Normal skin color and turgor. No cyanosis, rash, ulceration, clubbing, or edema. Radial and pedal pulses are 2/4 bilaterally. Neurological: No focal deficits. Strength and sensation are grossly intact. Results CBC & Chem 7: 08/31/16 05:35 08/31/16 05:35 Labs: Abnormal Lab Results - Last 24 Hours (Table) 08/30/16 08/30/16 08/31/16 Range/Units 21:31 23:41 05:35 RBC (4.30-5.90) m/uL Hgb (13.0-17.5) gm/dL Hct (39.0-53.0) % Neutrophils # (1.3-7.7) k/uL Sodium (137-145) mmol/L Glucose (74-99) mg/dL POC Glucose (mg/dL) 183 H (75-99) mg/dL Total Bilirubin (0.2-1.3) mg/dL AST (17-59) U/L ALT (21-72) U/L Alkaline Phosphatase (38-126) U/L Troponin I 0.048 H* 0.049 H* (0.000-0.034) ng/mL Albumin (3.5-5.0) g/dL 08/31/16 08/31/16 08/31/16 Range/Units 05:35 05:35 06:24 RBC 3.45 L (4.30-5.90) m/uL Hgb 10.4 L (13.0-17.5) gm/dL Hct 32.9 L (39.0-53.0) % Neutrophils # 8.2 H (1.3-7.7) k/uL Sodium 136 L (137-145) mmol/L Glucose 183 H (74-99) mg/dL POC Glucose (mg/dL) 170 H (75-99) mg/dL Total Bilirubin 4.4 H (0.2-1.3) mg/dL AST 449 H (17-59) U/L ALT 324 H (21-72) U/L Alkaline Phosphatase 309 H (38-126) U/L Troponin I (0.000-0.034) ng/mL Albumin 3.1 L (3.5-5.0) g/dL Assessment and Plan (1) Obstructive jaundice Narrative/Plan: 86-year-old gentleman with a history of liver abscess with recent hospitalization of fever and dilated biliary tree status post ERCP 08/23/2016 with findings of large retained CBD stone with unsuccessful removal status post biliary stent placement. New-onset of jaundice suspicious for stent occlusion possible migration. Status: Acute (2) Elevated liver enzymes Status: Acute (3) S/P ERCP Status: Acute (4) History of biliary stent insertion Status: Acute Plan: 1. Will proceed with repeat ERCP tomorrow for evaluation of jaundice. MRCP cannot be performed secondary to PPM. 2. Continue with antibiotics. Will allow full liquid diet. Nothing by mouth after midnight. The dormitory counselor has discussed the risks, benefits and alternative therapies for the above-mentioned procedure and for both sedation/analgesia as well as necessary blood product administration, if indicated, as they pertain to this patient. The patient has indicated understanding and acceptance of the risks and procedures discussed. Thank you for this kind referral and the opportunity to participate in the care of your patient. This consultation was discussed with Dr. Stapleton. The impression and plan of care have been directed as dictated.
--- NOTE | 2016-08-31 09:55 | P.CRDCN ---
History of Present Illness Consult date: 08/31/16 Requesting physician: Lazaro Bailey Consult reason: chest pain Chief complaint: Abdominal pain and chest pain History of present illness: This is an 86-year-old gentleman who follows with Dr. Burnette in the office. Patient has a known history of hypertension, diabetes, hyperlipidemia, prior pacemaker implantation, liver abscess, with recent ERCP and stent placement. Patient was also started on a new medication called Actigall, to assist in breaking down the stone, according to the patient, since he has started this medication he has not felt well. He states that he gets episodes of shaking spells, patient has also been having significant abdominal pain. Since starting the medication, patient states he has pain that starts in his abdomen and radiates up into his mid chest area. He's had multiple admissions to the hospital for this. Patient also had a recent skin cancer removed from his head. EKG on arrival here showed a normal sinus rhythm with a right bundle branch block pattern and nonspecific ST-T wave changes. Chest x-ray was performed which revealed mild pulmonary fibrotic changes. Laboratory data was reviewed, hemoglobin on admission 11.4, 10.4 this morning. Sodium 136, potassium 5.0, BUN 12, creatinine 1.1. Troponins 0.013, 0.048, 0.049. Total bilirubin 4.4, AST 449, ALT 324, alk phos 309. Blood pressure on arrival to 15/ 84 with a heart rate in the 80s, 96% on room air. Blood pressure this morning 130/60 with a heart rate in the 70s, 94% on room air. At the time of my examination this morning, she denies any chest pain, positive abdominal tenderness. Past Medical History Past Medical History: Cancer, Diabetes Mellitus, GERD/Reflux, Hyperlipidemia, Hypertension, Liver Disease, Osteoarthritis (OA), Sleep Apnea/CPAP/BIPAP, Thyroid Disorder Additional Past Medical History / Comment(s): HX jaundice age 11, SKIN CANCER- removal recently on head with open wound , SWELLING of ankles, hx ANEMIA, USES CANE, bradycardia, hiatal hernia, hs ulcer, History of Any Multi-Drug Resistant Organisms: None Reported Past Surgical History: Appendectomy, Cholecystectomy, Hernia Repair, Pacemaker, Tonsillectomy Additional Past Surgical History / Comment(s): lana CATARACTS WITH LENS IMPLANT, SKIN CANCER removed from head x3 Past Anesthesia/Blood Transfusion Reactions: No Reported Reaction Type of Cardiac Device: Permanent Pacemaker Device Placement Date:: 08/2015 Past Psychological History: Anxiety, Depression Additional Psychological History / Comment(s): . Smoking Status: Former smoker Past Alcohol Use History: None Reported Additional Past Alcohol Use History / Comment(s): SMOKED FOR APPROX 19 YEARS. 1PPD. QUIT SMOKING AT AGE 34. Past Drug Use History: None Reported - Past Family History Mother Family Medical History: No Reported History, Cancer Additional Family Medical History / Comment(s): LEUKEMIA Father Additional Family Medical History / Comment(s): WOUNDED IN WW1, MULTIPLE INJURES -LIVED TILL AGE 89 Brother(s) Family Medical History: Cancer Medications and Allergies Home Medications Medication Instructions Recorded Confirmed Type Aspirin EC [Ecotrin Low Dose] 81 mg PO DAILY 10/13/14 08/30/16 History Cyanocobalamin [Vitamin B-12] 500 mcg PO DAILY 10/13/14 08/30/16 History Folic Acid 1 mg PO DAILY 10/13/14 08/30/16 History Lisinopril [Zestril] 5 mg PO DAILY 10/13/14 08/30/16 History Omeprazole [PriLOSEC] 20 mg PO HS 10/13/14 08/30/16 History [place]-3 Fatty Acids/Fish Oil [Fish 1 cap PO DAILY 08/24/15 08/30/16 History Oil 1,000 mg Softgel] Potassium Chloride ER [K-Dur 20] 20 meq PO DAILY 08/24/15 08/30/16 History Levothyroxine Sodium [Synthroid] 75 mcg PO DAILY 02/21/16 08/30/16 History metFORMIN HCL 1,000 mg PO DAILY@0900 02/21/16 08/30/16 History Fluticasone Nasal [place] [Flonase 2 spray EA NOSTRIL DAILY PRN 03/25/16 08/30/16 History Nasal [place]] Loratadine 10 mg PO DAILY 03/25/16 08/30/16 History Magnesium Oxide [Mag-Ox] 400 mg PO HS 03/25/16 08/30/16 History Tamsulosin [Flomax] 0.4 mg PO HS 03/25/16 08/30/16 History Ferrous Sulfate [Feosol] 325 mg PO HS 08/11/16 08/30/16 History Gabapentin [Neurontin] 300 mg PO BID 08/11/16 08/30/16 History HYDROcodone/APAP 7.5-325MG [[place] 1 tab PO Q4H PRN 08/11/16 08/30/16 History 7.5-325] Insulin Aspart [NovoLOG] See Protocol SQ BID 08/11/16 08/30/16 History Insulin Glargine [Lantus] 30 unit SQ AC-BRKFST 08/11/16 08/30/16 History Metoprolol Tartrate [Lopressor] 25 mg PO HS 08/11/16 08/30/16 History Ubidecarenone [Co Q-10] 200 mg PO DAILY 08/11/16 08/30/16 History Ursodiol [Marcos] 250 mg PO AC-BID 08/30/16 08/30/16 History Allergies Allergy/AdvReac Type Severity Reaction Status Date / Time Hahdgkw-Ueo-Eff Reductase AdvReac Unknown Unknown Verified 08/30/16 18:56 Inhibitor Iodinated Contrast Media - AdvReac shakes Verified 08/30/16 18:56 Oral and [Iodinated Contrast Media - IV Dye] Physical Exam Vitals: Vital Signs Temp Pulse Pulse Resp BP BP Pulse Ox 08/31/16 04:00 97.8 F 76 18 131/63 94 L 08/31/16 00:00 96.8 F L 94 18 154/69 94 L 08/30/16 20:58 97.9 F 90 20 172/76 96 08/30/16 20:23 98 F 89 22 160/70 96 Intake and Output 08/30/16 08/31/16 08/31/16 22:59 06:59 14:59 Intake Total 300 800 Balance 300 800 Intake: IV 300 800 Sodium Chloride 0.9% 1, 300 800 000 ml @ 100 mls/hr IV . Q10H ONE Rx#:[id number] Other: Voiding Method Toilet Urinal # Voids 1 Weight 111.584 kg 108.8 kg PHYSICAL EXAMINATION: HEENT: Head is atraumatic, normocephalic. Pupils equal, round. Neck is supple. There is no elevated jugular venous pressure. HEART EXAMINATION: Heart S1 and S2 systolic murmur is heard. CHEST EXAMINATION: Lungs are clear with coarse crackles to the bases. ABDOMEN: Soft, obese, mild generalized tenderness. Bowel sounds are heard. No organomegaly noted. EXTREMITIES: 2+ peripheral pulses with no evidence of peripheral edema and no calf tenderness noted. NEUROLOGIC patient is awake, alert and oriented -3. . Results 08/31/16 05:35 08/31/16 05:35 Cardiac Enzymes 08/30/16 08/31/16 08/31/16 Range/Units 23:41 05:35 05:35 AST 449 H (17-59) U/L Troponin I 0.048 H* 0.049 H* (0.000-0.034) ng/mL CBC 08/31/16 Range/Units 05:35 WBC 10.6 (3.8-10.6) k/uL RBC 3.45 L (4.30-5.90) m/uL Hgb 10.4 L (13.0-17.5) gm/dL Hct 32.9 L (39.0-53.0) % Plt Count 201 (150-450) k/uL Comprehensive Metabolic Panel 08/31/16 Range/Units 05:35 Sodium 136 L (137-145) mmol/L Potassium 5.0 (3.5-5.1) mmol/L Chloride 99 (98-107) mmol/L Carbon Dioxide 27 (22-30) mmol/L BUN 12 (9-20) mg/dL Creatinine 1.18 (0.66-1.25) mg/dL Glucose 183 H (74-99) mg/dL Calcium 8.8 (8.4-10.2) mg/dL AST 449 H (17-59) U/L ALT 324 H (21-72) U/L Alkaline Phosphatase 309 H (38-126) U/L Total Protein 6.5 (6.3-8.2) g/dL Albumin 3.1 L (3.5-5.0) g/dL Current Medications Generic Name Dose Route Start Last Admin Trade Name Freq PRN Reason Stop Dose Admin Acetaminophen/Hydrocodone Bitart 1 each 08/30/16 19:57 08/31/16 08:22 [place] 7.5-325 PO 1 each Q4H PRN Administration Pain Al Hydroxide/Mg Hydroxide 30 ml 08/30/16 20:44 08/30/16 20:57 Maalox PO 30 ml ONCE PRN Administration GI Upset Aspirin 81 mg 08/31/16 09:00 08/31/16 08:53 Aspirin PO 81 mg DAILY [facility] Administration Calcium Carbonate/Glycine 500 mg 08/30/16 22:42 08/30/16 23:25 Tums PO 500 mg TID PRN Administration Heartburn Ferrous Sulfate 325 mg 08/31/16 21:00 Feosol PO HS [facility] Fluticasone Propionate 2 spray 08/30/16 22:03 Flonase Nasal [place] EA NOSTRIL DAILY PRN Allergy Symptoms Folic Acid 1 mg 08/31/16 12:00 Folic Acid PO DAILY@1200 [facility] Furosemide 20 mg 08/31/16 09:00 08/31/16 08:53 Lasix PO 20 mg BID@0900,1600 [facility] Administration Gabapentin 300 mg 08/31/16 09:00 08/31/16 08:53 Neurontin PO 300 mg BID [facility] Administration Insulin Glargine 30 unit 08/31/16 07:30 08/31/16 08:23 Lantus SQ Not Given AC-BRKFST [facility] Insulin Human Lispro 0 unit 08/31/16 07:30 08/31/16 06:30 Humalog SQ Not Given [facility] Protocol Levothyroxine Sodium 75 mcg 08/31/16 06:30 08/31/16 06:30 Synthroid PO Not Given DAILY@0630 [facility] Lisinopril 5 mg 08/31/16 09:00 08/31/16 08:52 Zestril PO 5 mg DAILY [facility] Administration Loratadine 10 mg 08/31/16 09:00 08/31/16 08:53 Claritin PO 10 mg DAILY [facility] Administration Magnesium Oxide 400 mg 08/31/16 21:00 Mag-Ox PO HS [facility] Metformin HCl 1,000 mg 08/31/16 09:00 08/31/16 08:24 Glucophage PO Not Given DAILY@0900 [facility] Metoprolol Tartrate 25 mg 08/30/16 22:15 08/30/16 23:25 Lopressor PO 25 mg HS [facility] Administration Non-Formulary Medication 250 mg 08/31/16 07:30 Ursodiol [Marcos] PO AC-BID [facility] Potassium Chloride 20 meq 08/31/16 09:00 08/31/16 08:53 K-Dur 20 PO 20 meq DAILY [facility] Administration Tamsulosin HCl 0.4 mg 08/31/16 21:00 Flomax PO HS [facility] Intake and Output 02/08/31/16 08/31/16 22:59 06:59 14:59 Intake Total 300 800 Balance 300 800 Intake: IV 300 800 Sodium Chloride 0.9% 1, 300 800 000 ml @ 100 mls/hr IV . Q10H ONE Rx#:[id number] Other: Voiding Method Toilet Urinal # Voids 1 Weight 111.584 kg 108.8 kg 08/31/16 05:35 08/31/16 05:35 EKG Interpretations (text) EKG shows normal sinus rhythm, first-degree AV block, right bundle branch block pattern Assessment and Plan Plan: Assessment and plan #1 symptoms of abdominal discomfort radiating up into the chest. Atypical for acute coronary syndrome. Troponins 0.013, 0.048, 0.049. #2 liver abscess with recent ERCP and stent placement, patient recently started on Actigall #3 hypertension #4 hyperlipidemia #5 diabetes #6 prior pacemaker implantation Plan We will obtain an echocardiogram with Doppler study. Continue current medications. Further recommendations to follow. DNP note has been reviewed, I agree with a documented findings and plan of care. Patient was seen and examined.
--- NOTE | 2016-08-31 11:00 | P.PN ---
Progress Note - Text This is an addendum to the dictated cardiology consultation. The patient presents with symptoms of abdominal discomfort worse recently radiating up to the chest associated with mild nausea. He has no change in his breathing and he has some peripheral edema but he has not been as active physically and has not been using his CPAP because of recent removal of a skin cancer from the skull at [facility]. He has a known history of permanent pacemaker implantation, AV block with trifascicular block. His activity level has been stable and his last echocardiogram done in 2013 showed a normal systolic function. He has no prior documented history of ischemic heart disease. On presentation he had mild troponin elevation but no associated check chest discomfort to suggest angina factors his discomforts predominantly abdominal and associated with nausea. His physical examination showed the clear lungs, a systolic murmur was mild abdominal discomfort and 1+ peripheral edema. His EKG shows no acute changes. I believe that this chest discomfort does not ischemic in origin and most likely related to his abdominal etiology. The elevation of the troponin most likely represent a type II event. I will obtain an echocardiogram with Doppler. Depending on the further plan from the GI service further recommendations will be made. Thank you for this consult we will follow with you.
[2016-08-31] MEDS: CIPROFLOXACIN HCL 500 MG TAB PO SCH ×2 (12:18→21:57)
[2016-08-31] MEDS: FOLIC ACID 1 MG TAB PO SCH (12:18)
[2016-08-31] MEDS: URSODIOL 300 MG CAP PO SCH ×2 (12:20→17:04)
[2016-08-31 12:44] LABS: Glucose,Whole Blood 157 mg/dL (75-99)
--- NOTE | 2016-08-31 13:05 | ECHOF ---
Referral Reason:chest pain MEASUREMENTS -------- HEIGHT: 182.9 cm WEIGHT: 108.4 kg BP: 131/63 RVIDd: 2.8 cm (< 3.3) IVSd: 1.0 cm (0.6 - 1.1) LVIDd: 3.5 cm (3.9 - 5.3) LVPWd: 0.9 cm (0.6 - 1.1) IVSs: 1.6 cm LVIDs: 2.5 cm LVPWs: 1.7 cm LA Diam: 3.1 cm (2.7 - 3.8) LAESV Index (A-L): 22.06 ml/m Ao Diam: 3.7 cm (2.0 - 3.7) AV Cusp: 1.9 cm (1.5 - 2.6) LA Diam: 3.3 cm (2.7 - 3.8) MV EXCURSION: 12.495 mm (> 18.000) MV EF SLOPE: 22 mm/s (70 - 150) EPSS: 0.9 cm MV E Murphy: 1.09 m/s MV DecT: 240 ms MV A Murphy: 1.31 m/s MV E/A Ratio: 0.84 AV maxP.18 mmHg AV meanP.53 mmHg FINDINGS -------- Sinus rhythm. This was a technically adequate study. The left ventricular size is normal. Left ventricular wall thickness is normal. Overall left ventricular systolic function is normal with, an EF between 60 - 65 %. The right ventricle is normal in size. Normal LA size by volume 22+/-6 ml/m2. The right atrium is normal in size. Aortic valve is trileaflet and is moderately thickened. There is mild aortic stenosis present. Peak/mean gradient across the Aortic Valve is 15.18mmHg / 8.53mmHg. The mitral valve leaflets are mildly thickened. Severe mitral annular calcification present. The tricuspid valve was not well visualized. Trace/mild (physiologic) pulmonic regurgitation. The aortic root is dilated measuring 3.7cm. There is no pericardial effusion. CONCLUSIONS -------- 1. Sinus rhythm. 2. There is mild aortic stenosis present. 3. Peak/mean gradient across the Aortic Valve is 15.18mmHg / 8.53mmHg. 4. The mitral valve leaflets are mildly thickened. 5. Severe mitral annular calcification present. 6. The tricuspid valve was not well visualized. 7. Trace/mild (physiologic) pulmonic regurgitation. 8. The aortic root is dilated measuring 3.7cm. 9. There is no pericardial effusion. 10. This was a technically adequate study. 11. The left ventricular size is normal. 12. Left ventricular wall thickness is normal. 13. Overall left ventricular systolic function is normal with, an EF between 60 - 65 %. 14. The right ventricle is normal in size. 15. Normal LA size by volume 22+/-6 ml/m2. 16. The right atrium is normal in size. 17. Aortic valve is trileaflet and is moderately thickened. LIVE IN HOUSEKEEPER: Louann Sullivan RDCS
--- NOTE | 2016-08-31 13:42 | P.GSCN ---
History of Present Illness Consult date: 08/31/16 Reason for Consult: LFT elevation Requesting physician: Lazaro Bailey History of present illness: Patient is an 86-year-old male with a medical history significant for liver abscess and recent choledocholithiasis with ERCP with sphincterotomy and biliary stent placement with unsuccessful attempt to extract common bile duct stone on 08/23/2016. Patient states he felt good for about 10 days after his procedure but started to develop abdominal pain and chest pain for 2 days prior to admission. No history of fevers, chills, shortness of breath, diarrhea or constipation. No history of hematemesis, melena, or hematochezia. Admission lab work with evidence of elevated bilirubin, elevated AST and ALT, and elevated alkaline phosphatase suspicious for obstructive jaundice. Surgical consult requested for elevated liver enzymes. Past Medical History Past Medical History: Cancer, Diabetes Mellitus, GERD/Reflux, Hyperlipidemia, Hypertension, Liver Disease, Osteoarthritis (OA), Sleep Apnea/CPAP/BIPAP, Thyroid Disorder Additional Past Medical History / Comment(s): HX jaundice age 11, SKIN CANCER- removal recently on head with open wound , SWELLING of ankles, hx ANEMIA, USES CANE, bradycardia, hiatal hernia, hs ulcer, History of Any Multi-Drug Resistant Organisms: None Reported Past Surgical History: Appendectomy, Cholecystectomy, Hernia Repair, Pacemaker, Tonsillectomy Additional Past Surgical History / Comment(s): lana CATARACTS WITH LENS IMPLANT, SKIN CANCER removed from head x3 Past Anesthesia/Blood Transfusion Reactions: No Reported Reaction Type of Cardiac Device: Permanent Pacemaker Device Placement Date:: 08/2015 Past Psychological History: Anxiety, Depression Additional Psychological History / Comment(s): . Smoking Status: Former smoker Past Alcohol Use History: None Reported Additional Past Alcohol Use History / Comment(s): SMOKED FOR APPROX 19 YEARS. 1PPD. QUIT SMOKING AT AGE 34. Past Drug Use History: None Reported - Past Family History Mother Family Medical History: No Reported History, Cancer Additional Family Medical History / Comment(s): LEUKEMIA Father Additional Family Medical History / Comment(s): WOUNDED IN WW1, MULTIPLE INJURES -LIVED TILL AGE 89 Brother(s) Family Medical History: Cancer Medications and Allergies Home Medications Medication Instructions Recorded Confirmed Type Aspirin EC [Ecotrin Low Dose] 81 mg PO DAILY 10/13/14 08/30/16 History Cyanocobalamin [Vitamin B-12] 500 mcg PO DAILY 10/13/14 08/30/16 History Folic Acid 1 mg PO DAILY 10/13/14 08/30/16 History Lisinopril [Zestril] 5 mg PO DAILY 10/13/14 08/30/16 History Omeprazole [PriLOSEC] 20 mg PO HS 10/13/14 08/30/16 History [place]-3 Fatty Acids/Fish Oil [Fish 1 cap PO DAILY 08/24/15 08/30/16 History Oil 1,000 mg Softgel] Potassium Chloride ER [K-Dur 20] 20 meq PO DAILY 08/24/15 08/30/16 History Levothyroxine Sodium [Synthroid] 75 mcg PO DAILY 02/21/16 08/30/16 History metFORMIN HCL 1,000 mg PO DAILY@0900 02/21/16 08/30/16 History Fluticasone Nasal [place] [Flonase 2 spray EA NOSTRIL DAILY PRN 03/25/16 08/30/16 History Nasal [place]] Loratadine 10 mg PO DAILY 03/25/16 08/30/16 History Magnesium Oxide [Mag-Ox] 400 mg PO HS 03/25/16 08/30/16 History Tamsulosin [Flomax] 0.4 mg PO HS 03/25/16 08/30/16 History Ferrous Sulfate [Feosol] 325 mg PO HS 08/11/16 08/30/16 History Gabapentin [Neurontin] 300 mg PO BID 08/11/16 08/30/16 History HYDROcodone/APAP 7.5-325MG [[place] 1 tab PO Q4H PRN 08/11/16 08/30/16 History 7.5-325] Insulin Aspart [NovoLOG] See Protocol SQ BID 08/11/16 08/30/16 History Insulin Glargine [Lantus] 30 unit SQ AC-BRKFST 08/11/16 08/30/16 History Metoprolol Tartrate [Lopressor] 25 mg PO HS 08/11/16 08/30/16 History Ubidecarenone [Co Q-10] 200 mg PO DAILY 08/11/16 08/30/16 History Ursodiol [Marcos] 250 mg PO AC-BID 08/30/16 08/30/16 History Allergies Allergy/AdvReac Type Severity Reaction Status Date / Time Ogkavui-Cyc-Opo Reductase AdvReac Unknown Unknown Verified 08/30/16 18:56 Inhibitor Iodinated Contrast Media - AdvReac shakes Verified 08/30/16 18:56 Oral and [Iodinated Contrast Media - IV Dye] Surgical - Exam Vital Signs Temp Pulse Resp BP Pulse Ox 98.5 F 80 16 215/84 96 08/30/16 17:45 08/30/16 17:45 08/30/16 17:45 08/30/16 17:45 08/30/16 17:45 GENERAL: Pt awake and alert, well-nourished, in no acute distress. HEAD: Atraumatic, normocephalic. EYES: Pupils equal and round. Sclera icteric. ENT: Moist mucous membranes. NECK:Supple without lymphadenopathy or JVD. LUNGS: Breath sounds clear to auscultation bilaterally. No wheezes, rales, or rhonchi. HEART: Heart S1, S2, no S3 or S4. Regular rate and rhythm. No murmurs, rubs or gallops. ABDOMEN: Soft, obese, mild epigastric tenderness, nondistended, normoactive bowel sounds. No guarding, no rebound. EXTREMITIES: Palpable peripheral pulses. 2+ edema to bilateral lower extremities. NEUROLOGICAL: Pt oriented x 3. No focal deficits. PSYCH: Normal mood, normal affect. Results - Labs 08/31/16 05:35 08/31/16 05:35 Abnormal Lab Results - Last 24 Hours (Table) 08/30/16 08/30/16 08/31/16 Range/Units 21:31 23:41 05:35 RBC (4.30-5.90) m/uL Hgb (13.0-17.5) gm/dL Hct (39.0-53.0) % Neutrophils # (1.3-7.7) k/uL Sodium (137-145) mmol/L Glucose (74-99) mg/dL POC Glucose (mg/dL) 183 H (75-99) mg/dL Total Bilirubin (0.2-1.3) mg/dL AST (17-59) U/L ALT (21-72) U/L Alkaline Phosphatase (38-126) U/L Troponin I 0.048 H* 0.049 H* (0.000-0.034) ng/mL Albumin (3.5-5.0) g/dL 08/31/16 08/31/16 08/31/16 Range/Units 05:35 05:35 06:24 RBC 3.45 L (4.30-5.90) m/uL Hgb 10.4 L (13.0-17.5) gm/dL Hct 32.9 L (39.0-53.0) % Neutrophils # 8.2 H (1.3-7.7) k/uL Sodium 136 L (137-145) mmol/L Glucose 183 H (74-99) mg/dL POC Glucose (mg/dL) 170 H (75-99) mg/dL Total Bilirubin 4.4 H (0.2-1.3) mg/dL AST 449 H (17-59) U/L ALT 324 H (21-72) U/L Alkaline Phosphatase 309 H (38-126) U/L Troponin I (0.000-0.034) ng/mL Albumin 3.1 L (3.5-5.0) g/dL 08/31/16 Range/Units 12:11 RBC (4.30-5.90) m/uL Hgb (13.0-17.5) gm/dL Hct (39.0-53.0) % Neutrophils # (1.3-7.7) k/uL Sodium (137-145) mmol/L Glucose (74-99) mg/dL POC Glucose (mg/dL) 157 H (75-99) mg/dL Total Bilirubin (0.2-1.3) mg/dL AST (17-59) U/L ALT (21-72) U/L Alkaline Phosphatase (38-126) U/L Troponin I (0.000-0.034) ng/mL Albumin (3.5-5.0) g/dL Diabetes panel 08/31/16 Range/Units 05:35 Sodium 136 L (137-145) mmol/L Potassium 5.0 (3.5-5.1) mmol/L Chloride 99 (98-107) mmol/L Carbon Dioxide 27 (22-30) mmol/L BUN 12 (9-20) mg/dL Creatinine 1.18 (0.66-1.25) mg/dL Glucose 183 H (74-99) mg/dL Calcium 8.8 (8.4-10.2) mg/dL AST 449 H (17-59) U/L ALT 324 H (21-72) U/L Alkaline Phosphatase 309 H (38-126) U/L Total Protein 6.5 (6.3-8.2) g/dL Albumin 3.1 L (3.5-5.0) g/dL Calcium panel 08/31/16 Range/Units 05:35 Calcium 8.8 (8.4-10.2) mg/dL Albumin 3.1 L (3.5-5.0) g/dL Pituitary panel 08/31/16 Range/Units 05:35 Sodium 136 L (137-145) mmol/L Potassium 5.0 (3.5-5.1) mmol/L Chloride 99 (98-107) mmol/L Carbon Dioxide 27 (22-30) mmol/L BUN 12 (9-20) mg/dL Creatinine 1.18 (0.66-1.25) mg/dL Glucose 183 H (74-99) mg/dL Calcium 8.8 (8.4-10.2) mg/dL Adrenal panel 08/31/16 Range/Units 05:35 Sodium 136 L (137-145) mmol/L Potassium 5.0 (3.5-5.1) mmol/L Chloride 99 (98-107) mmol/L Carbon Dioxide 27 (22-30) mmol/L BUN 12 (9-20) mg/dL Creatinine 1.18 (0.66-1.25) mg/dL Glucose 183 H (74-99) mg/dL Calcium 8.8 (8.4-10.2) mg/dL Total Bilirubin 4.4 H (0.2-1.3) mg/dL AST 449 H (17-59) U/L ALT 324 H (21-72) U/L Alkaline Phosphatase 309 H (38-126) U/L Total Protein 6.5 (6.3-8.2) g/dL Albumin 3.1 L (3.5-5.0) g/dL - Imaging Chest x-ray: report reviewed Assessment and Plan Plan: Impression: 1. Obstructive jaundice with history of common bile duct stone. 2. History of cholecystectomy. 3. History of recent ERCP with unsuccessful common bile duct stone extraction with biliary stent placement. 4. History of liver abscess. Plan: Continue to monitor patient. Patient has been evaluated by gastroenterology service with possible ERCP tomorrow. Continue medical management. We'll continue to follow. The above impression and plan have been discussed and directed by Dr. Suh. Dao ALONSO acting as scribe for Dr. Suh.
[2016-08-31 17:26] LABS: Glucose,Whole Blood 156 mg/dL (75-99)
[2016-08-31] MEDS: FERROUS SULFATE 325 MG TAB PO SCH (21:57)
[2016-08-31] MEDS: MAGNESIUM OXIDE 400 MG TAB PO SCH (21:58)
[2016-08-31] MEDS: METOPROLOL TARTRATE 25 MG TAB PO SCH (21:58)
[2016-08-31] MEDS: TAMSULOSIN 0.4 MG CAP.ER.24H PO SCH (21:58)
[2016-08-31] MEDS: FAMOTIDINE 20 MG TAB PO SCH (22:08)
[2016-08-31 22:23] LABS: Glucose,Whole Blood 177 mg/dL (75-99)
[2016-09-01] MEDS ORDERED: ACETAMINOPHEN TAB 325 MG TAB PO PRN ×2 (05:01→05:16)
[2016-09-01] MEDS: HYDROcodone/APAP 7.5-325MG 1 EACH TAB PO PRN ×2 (05:52→11:10)
[2016-09-01] MEDS: LEVOTHYROXINE 75 MCG TAB PO SCH (05:56)
[2016-09-01] MEDS ORDERED: AMPICILLIN-SULBACTAM 2 GM in SODIUM CHLORIDE 0.9% 50 ML IVPB SCH (06:00)
[2016-09-01 06:11] LABS: Basophils % (A) 0 %; CH 29.8; CHCM 31.8; Eosinophils # (A) 0.1 k/uL (0-0.7); Eosinophils % (A) 1 %; HCT 34.9 % (39.0-53.0); HGB 11.1 gm/dL (13.0-17.5); Luc # (Auto) 0.11; Luc % (Auto) 1; Lymphocytes # (A) 0.7 k/uL (1.0-4.8); Lymphocytes % (A) 6 %; MCH 30.1 pg (25.0-35.0); MCHC 31.9 g/dL (31.0-37.0); MCV 94.3 fL (80.0-100.0); Mean Platelet Volume 6.7; Monocytes # (A) 0.8 k/uL (0-1.0); Monocytes % (A) 7 %; Neutrophils # (A) 9.1 k/uL (1.3-7.7); Neutrophils % (A) 84 %; RDW 13.5 % (11.5-15.5); WBC 10.9 k/uL (3.8-10.6); WBC (Perox) 11.23
[2016-09-01] MEDS: AMPICILLIN-SULBACTAM 3 GM in SODIUM CHLORIDE 0.9% 100 ML IVPB SCH ×2 (06:18→11:46)
[2016-09-01 06:29] LABS: ALT 213 U/L (21-72); AST 159 U/L (17-59); Alkaline Phosphatase 358 U/L (38-126); Anion Gap 14 mmol/L; Blood Urea Nitrogen 14 mg/dL (9-20); Calcium 8.8 mg/dL (8.4-10.2); Carbon Dioxide 22 mmol/L (22-30); Chloride 100 mmol/L (98-107); Glucose 175 mg/dL (74-99); Non-African American GFR(MDRD) 52 (>60 ml/min/1.73 sqM); Potassium 4.5 mmol/L (3.5-5.1); Sodium 136 mmol/L (137-145); Total Protein 6.6 g/dL (6.3-8.2)
[2016-09-01 08:32] LABS: Glucose,Whole Blood 181 mg/dL (75-99)
[2016-09-01] MEDS: URSODIOL 300 MG CAP PO SCH ×2 (08:47→17:18)
[2016-09-01] MEDS: INSULIN GLARGINE 100 UNIT/ML 10 ML VIAL SQ SCH (08:47)
[2016-09-01] MEDS: GABAPENTIN 300 MG CAP PO SCH ×2 (08:48→21:13)
[2016-09-01] MEDS: FAMOTIDINE 20 MG TAB PO SCH (08:48)
[2016-09-01] MEDS: LISINOPRIL 5 MG TAB PO SCH (08:48)
[2016-09-01] MEDS: LORATADINE 10 MG TAB PO SCH (08:48)
[2016-09-01] MEDS: ASPIRIN 81 MG CHEW PO SCH (08:48)
[2016-09-01] MEDS: FUROSEMIDE 20 MG TAB PO SCH ×2 (08:48→16:07)
[2016-09-01] MEDS: CIPROFLOXACIN HCL 500 MG TAB PO SCH ×2 (08:48→21:13)
[2016-09-01] MEDS: INSULIN LISPRO (humaLOG) 300 UNIT/3 ML VIAL SQ SCH ×4 (08:48→21:11)
[2016-09-01] MEDS: metFORMIN 500 MG TAB PO SCH (08:49)
[2016-09-01] MEDS: POTASSIUM CHLORIDE ER 20 MEQ TAB.ER PO SCH (08:49)
--- NOTE | 2016-09-01 11:02 | P.PN ---
Subjective 86-year-old male being seen on rounds with the attending this morning. Patients being evaluated by surgical service and GI service. Patient is scheduled today by GI for an ERCP for any evaluation of jaundice. The new onset of jaundice suspicious for stent occlusion possible migration. Patient is aware the plan of care. The dressing was removed from the scalp from a prior excision of swallow so from the scalp done at [facility] on August 17. On the one dressing there is a scant amount of greenish drainage noted the areas red around it patient has been afebrile. Patient currently is denying chest pain shortness of breath or abdominal discomfort he states Additionally there is a surgical consultation requested for the elevated liver enzymes by the attending patient has a history of a prior cholecystectomy. Surgical service has no further surgical recommendations at this time defer to gastroenterology for management Objective - Vital Signs Vital signs: Vital Signs Temp 98.6 F 09/01/16 07:00 Pulse 78 09/01/16 07:00 Resp 16 09/01/16 07:00 BP 99/55 09/01/16 07:00 Pulse Ox 92 L 09/01/16 07:00 Intake & Output 08/31/16 09/01/16 09/01/16 18:59 06:59 18:59 Intake Total 980 Output Total 1 Balance 979 Weight 113.5 kg Intake: IV 600 Sodium Chloride 0.9% 1, 600 000 ml @ 100 mls/hr IV . Q10H ONE Rx#:[id number] Oral 380 Output: Stool 1 Other: Voiding Method Toilet Urinal # Voids 2 - Exam Physical exam 86-year-old male sitting up in bed appears in no acute distress HEENT dressing removed from the scalp area peyton in place around the staple surgical site is redness. Noted a scant amount of greenish drainage on the dressing. Lungs essentially clear with adequate air movement no shortness of breath on room air Heart S1-S2 audible regular denying chest pain Abdomen soft non-distended with normal active bowel tones. No guarding no rebound states urinating no difficulty no stooling does report having "mild epigastric discomfort extremities no edema - Labs CBC & Chem 7: 09/01/16 05:53 09/01/16 05:53 Labs: Abnormal Lab Results - Last 24 Hours (Table) 08/31/16 08/31/16 08/31/16 Range/Units 12:11 17:07 22:22 WBC (3.8-10.6) k/uL RBC (4.30-5.90) m/uL Hgb (13.0-17.5) gm/dL Hct (39.0-53.0) % Neutrophils # (1.3-7.7) k/uL Lymphocytes # (1.0-4.8) k/uL Sodium (137-145) mmol/L Creatinine (0.66-1.25) mg/dL Glucose (74-99) mg/dL POC Glucose (mg/dL) 157 H 156 H 177 H (75-99) mg/dL Total Bilirubin (0.2-1.3) mg/dL AST (17-59) U/L ALT (21-72) U/L Alkaline Phosphatase (38-126) U/L Albumin (3.5-5.0) g/dL 09/01/16 09/01/16 09/01/16 Range/Units 05:53 05:53 08:30 WBC 10.9 H (3.8-10.6) k/uL RBC 3.70 L (4.30-5.90) m/uL Hgb 11.1 L (13.0-17.5) gm/dL Hct 34.9 L (39.0-53.0) % Neutrophils # 9.1 H (1.3-7.7) k/uL Lymphocytes # 0.7 L (1.0-4.8) k/uL Sodium 136 L (137-145) mmol/L Creatinine 1.30 H (0.66-1.25) mg/dL Glucose 175 H (74-99) mg/dL POC Glucose (mg/dL) 181 H (75-99) mg/dL Total Bilirubin 7.0 H (0.2-1.3) mg/dL AST 159 H (17-59) U/L ALT 213 H (21-72) U/L Alkaline Phosphatase 358 H (38-126) U/L Albumin 3.2 L (3.5-5.0) g/dL Assessment and Plan Plan: Impression History of a liver abscess Present on admission mid epigastric pain with jaundice suspect obstructive jaundice likely due to stent occlusion recent hospitalization 08/23/2016 with fever and dilated biliary tree status post ERCP 08/23/2016 with findings of large retained CBD stone with unsuccessful removal status post biliary stent placement Elevated liver enzymes History of biliary stent insertion Mildly elevated troponin no evidence of acute coronary syndrome likely a type IIA vent Cognitive impairment suspect dementia duration undetermined with no behavior changes History of sleep apnea with CPAP support Chronic back pain with narcotic dependent Anxiety disorder nonspecified Obesity BMI 32 Chronically debilitated with gait imbalance 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 Impression and the plan of care have been dictated as directed. Adore Hightower nurse practitioner acting as a scribe for dr Bailey [].
--- NOTE | 2016-09-01 11:04 | P.HPIM ---
History of Present Illness H&P Date: 08/30/16 86-year-old who presented on the day of admission to the emergency room with a chief complaint of abdominal pain with jaundice patient points to the epigastric area to the reference point. Patient stated that he has been having the pain for the last several days. Patient described the pain as sharp intermittent. Patient states he was not having any nausea vomiting no diarrhea. Additionally patient stated he was not experiencing any chest pain when questioning. Patient states that he was started on a new medication by GI service doesn't know the name and since then has been experiencing the epigastric pain. Patient is well known to GI service. Patient was admitted this admission with jaundice no fever with persistent mid epigastric lower sternal chest discomfort. In August 12 patient was hospitalized at that time suspect recurrent liver abscess. CAT scan imaging reported dilatation of the biliary tree area that admission the patient underwent an ERCP on August 23 the findings a large retained common bile duct stone with unsuccessful extraction status post placement of a biliary stent. At that time the patient was discharged with instructions to take actigall twice daily and continue Cipro 500 mg twice daily At that time his transaminases and bilirubin were unremarkable. . This admission labs noted to be elevated Total bilirubin 3.1 currently 4.4. AST 449- 515. ALT 253-324. Alkaline phosphatase 291-309. Troponin 0.048-0.049. Chronically reports back and neck pain as well as mid sternal/epigastric discomfort. Requests Barry every 4 hours for his pain. States he has been taking Barry for greater than 20 years Review of Systems essentially unremarkable except as mentioned in the present illness Past Medical History Past Medical History: Cancer, Diabetes Mellitus, GERD/Reflux, Hyperlipidemia, Hypertension, Liver Disease, Osteoarthritis (OA), Sleep Apnea/CPAP/BIPAP, Thyroid Disorder Additional Past Medical History / Comment(s): HX jaundice age 11, SKIN CANCER- removal recently on head with open wound , SWELLING of ankles, hx ANEMIA, USES CANE, bradycardia, hiatal hernia, hs ulcer, History of Any Multi-Drug Resistant Organisms: None Reported Past Surgical History: Appendectomy, Cholecystectomy, Hernia Repair, Pacemaker, Tonsillectomy Additional Past Surgical History / Comment(s): lana CATARACTS WITH LENS IMPLANT, SKIN CANCER removed from head x3 Past Anesthesia/Blood Transfusion Reactions: No Reported Reaction Type of Cardiac Device: Permanent Pacemaker Device Placement Date:: 08/2015 Past Psychological History: Anxiety, Depression Additional Psychological History / Comment(s): . Smoking Status: Former smoker Past Alcohol Use History: None Reported Additional Past Alcohol Use History / Comment(s): SMOKED FOR APPROX 19 YEARS. 1PPD. QUIT SMOKING AT AGE 34. Past Drug Use History: None Reported - Past Family History Mother Family Medical History: No Reported History, Cancer Additional Family Medical History / Comment(s): LEUKEMIA Father Additional Family Medical History / Comment(s): WOUNDED IN WW1, MULTIPLE INJURES -LIVED TILL AGE 89 Brother(s) Family Medical History: Cancer Medications and Allergies Home Medications Medication Instructions Recorded Confirmed Type Aspirin EC [Ecotrin Low Dose] 81 mg PO DAILY 10/13/14 08/30/16 History Cyanocobalamin [Vitamin B-12] 500 mcg PO DAILY 10/13/14 08/30/16 History Folic Acid 1 mg PO DAILY 10/13/14 08/30/16 History Lisinopril [Zestril] 5 mg PO DAILY 10/13/14 08/30/16 History Omeprazole [PriLOSEC] 20 mg PO HS 10/13/14 08/30/16 History [place]-3 Fatty Acids/Fish Oil [Fish 1 cap PO DAILY 08/24/15 08/30/16 History Oil 1,000 mg Softgel] Potassium Chloride ER [K-Dur 20] 20 meq PO DAILY 08/24/15 08/30/16 History Levothyroxine Sodium [Synthroid] 75 mcg PO DAILY 02/21/16 08/30/16 History metFORMIN HCL 1,000 mg PO DAILY@0900 02/21/16 08/30/16 History Fluticasone Nasal [place] [Flonase 2 spray EA NOSTRIL DAILY PRN 03/25/16 08/30/16 History Nasal [place]] Loratadine 10 mg PO DAILY 03/25/16 08/30/16 History Magnesium Oxide [Mag-Ox] 400 mg PO HS 03/25/16 08/30/16 History Tamsulosin [Flomax] 0.4 mg PO HS 03/25/16 08/30/16 History Ferrous Sulfate [Feosol] 325 mg PO HS 08/11/16 08/30/16 History Gabapentin [Neurontin] 300 mg PO BID 08/11/16 08/30/16 History HYDROcodone/APAP 7.5-325MG [[place] 1 tab PO Q4H PRN 08/11/16 08/30/16 History 7.5-325] Insulin Aspart [NovoLOG] See Protocol SQ BID 08/11/16 08/30/16 History Insulin Glargine [Lantus] 30 unit SQ AC-BRKFST 08/11/16 08/30/16 History Metoprolol Tartrate [Lopressor] 25 mg PO HS 08/11/16 08/30/16 History Ubidecarenone [Co Q-10] 200 mg PO DAILY 08/11/16 08/30/16 History Ursodiol [Marcos] 250 mg PO AC-BID 08/30/16 08/30/16 History Allergies Allergy/AdvReac Type Severity Reaction Status Date / Time Spnffdl-Idh-Yzy Reductase AdvReac Unknown Unknown Verified 08/30/16 18:56 Inhibitor Iodinated Contrast Media - AdvReac shakes Verified 08/30/16 18:56 Oral and [Iodinated Contrast Media - IV Dye] Physical Exam Vitals: Vital Signs Temp Pulse Pulse Resp BP BP Pulse Ox 08/31/16 08:00 96.8 F L 74 16 139/92 96 08/31/16 04:00 97.8 F 76 18 131/63 94 L 08/31/16 00:00 96.8 F L 94 18 154/69 94 L 08/30/16 20:58 97.9 F 90 20 172/76 96 08/30/16 20:23 98 F 89 22 160/70 96 Intake and Output 08/30/16 08/31/16 08/31/16 22:59 06:59 14:59 Intake Total 300 800 Balance 300 800 Intake: IV 300 800 Sodium Chloride 0.9% 1, 300 800 000 ml @ 100 mls/hr IV . Q10H ONE Rx#:[id number] Other: Voiding Method Toilet Toilet Urinal Urinal # Voids 1 Weight 111.584 kg 108.8 kg GENERAL APPEARANCE: 86-year-old male patient is alert, oriented, in no acute distress. Jaundice in appearance sitting up on the edge of the bed talkative VITAL SIGNS: Reviewed HEENT: Head is normocephalic and atraumatic. Pupils are equal and reactive. The nares are patent. Oropharynx is clear without lesions. Scalp dressing in place no drainage noted NECK: Supple without lymphadenopathy. Traches midline. HEART: S1, S2. Regular rate and rhythm. Murmur noted LUNGS: No crackles or wheezes are heard. ABDOMEN: Soft, positive tenderness to the epigastric area with palpitation nondistended with good bowel sounds. No peritoneal signs. No palpable organomegaly or masses. EXTREMITIES: Normal skin color and turgor. No cyanosis, rash, ulceration, clubbing or edema. Radial pedal pulses are 2/4 bilaterally. NEUROLOGICAL: No focal deficits. Strength and sensation are grossly intact. Results CBC & Chem 7: 09/01/16 05:53 09/01/16 05:53 Labs: Abnormal Lab Results - Last 24 Hours (Table) 08/30/16 08/30/16 08/31/16 Range/Units 21:31 23:41 05:35 RBC (4.30-5.90) m/uL Hgb (13.0-17.5) gm/dL Hct (39.0-53.0) % Neutrophils # (1.3-7.7) k/uL Sodium (137-145) mmol/L Glucose (74-99) mg/dL POC Glucose (mg/dL) 183 H (75-99) mg/dL Total Bilirubin (0.2-1.3) mg/dL AST (17-59) U/L ALT (21-72) U/L Alkaline Phosphatase (38-126) U/L Troponin I 0.048 H* 0.049 H* (0.000-0.034) ng/mL Albumin (3.5-5.0) g/dL 08/31/16 08/31/16 08/31/16 Range/Units 05:35 05:35 06:24 RBC 3.45 L (4.30-5.90) m/uL Hgb 10.4 L (13.0-17.5) gm/dL Hct 32.9 L (39.0-53.0) % Neutrophils # 8.2 H (1.3-7.7) k/uL Sodium 136 L (137-145) mmol/L Glucose 183 H (74-99) mg/dL POC Glucose (mg/dL) 170 H (75-99) mg/dL Total Bilirubin 4.4 H (0.2-1.3) mg/dL AST 449 H (17-59) U/L ALT 324 H (21-72) U/L Alkaline Phosphatase 309 H (38-126) U/L Troponin I (0.000-0.034) ng/mL Albumin 3.1 L (3.5-5.0) g/dL Thrombosis Risk Factor Assmnt - Choose All That Apply Each Factor Represents 1 point: Obesity (BMI >25), Swollen legs (current) Other Risk Factors: Yes Each Risk Factor Represents 3 Points: Age 75 years or older Thrombosis Risk Factor Assessment Total Risk Factor Score: 5 Thrombosis Risk Factor Assessment Level: High Risk Assessment and Plan Plan: Impression History of a liver abscess Present on admission mid epigastric pain with jaundice suspect obstructive jaundice likely due to stent occlusion recent hospitalization 08/23/2016 with fever and dilated biliary tree status post ERCP 08/23/2016 with findings of large retained CBD stone with unsuccessful removal status post biliary stent placement Elevated liver enzymes History of biliary stent insertion Mildly elevated troponin no evidence of acute coronary syndrome likely a type II Cognitive impairment suspect dementia duration undetermined with no behavior changes History of sleep apnea with CPAP support Chronic back pain with narcotic dependent Anxiety disorder nonspecified Obesity BMI 32 Chronically debilitated with gait imbalance 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 Bailey. Impression and the plan of care have been dictated as directed. Adore Hightower nurse practitioner acting as a scribe for Dr. Bailey].
[2016-09-01 11:16] LABS: Glucose,Whole Blood 162 mg/dL (75-99)
[2016-09-01] MEDS ORDERED: MORPHINE SULFATE 2 MG/ML SYRINGE IVP ONE (11:32)
[2016-09-01] MEDS: FOLIC ACID 1 MG TAB PO SCH (12:03)
[2016-09-01] MEDS ORDERED: INDOMETHACIN 50MG SUPPOSITORY RECTAL ONE (13:00)
--- NOTE | 2016-09-01 14:21 | P.PN ---
Subjective Principal diagnosis: Obstructive jaundice Patient is an 86-year-old male with a medical history significant for liver abscess and recent choledocholithiasis with ERCP with sphincterotomy and biliary stent placement with unsuccessful attempt to extract common bile duct stone on 08/23/2016. Patient admitted with evidence of obstructive jaundice. Upon examination, patient reports chills and fevers, and nausea without vomiting. Patient currently denies abdominal pain. WBC increased to 10.9. Creatinine increased to 1.3. Total bilirubin increased to 7, alkaline phosphatase increased to 358, AST and ALT decreased from yesterday. T-max last 24 hours 101.5. Patient is currently scheduled for an ERCP today. Objective - Vital Signs Vital signs: Vital Signs Temp 98.6 F 09/01/16 07:00 Pulse 78 09/01/16 07:00 Resp 16 09/01/16 07:00 BP 99/55 09/01/16 07:00 Pulse Ox 92 L 09/01/16 07:00 Intake & Output 08/31/16 09/01/16 09/01/16 18:59 06:59 18:59 Intake Total 980 Output Total 1 Balance 979 Weight 113.5 kg Intake: IV 600 Sodium Chloride 0.9% 1, 600 000 ml @ 100 mls/hr IV . Q10H ONE Rx#:[id number] Oral 380 Output: Stool 1 Other: Voiding Method Toilet Urinal # Voids 2 - Exam GENERAL: Pt awake and alert, well-nourished, in no acute distress. HEAD: Atraumatic, normocephalic. EYES: Pupils equal and round. Sclera icteric. ENT: Moist mucous membranes. NECK:Supple without lymphadenopathy or JVD. LUNGS: Breath sounds clear to auscultation bilaterally. No wheezes, rales, or rhonchi. HEART: Heart S1, S2, no S3 or S4. Regular rate and rhythm. No murmurs, rubs or gallops. ABDOMEN: Soft, obese, mild epigastric tenderness, nondistended, normoactive bowel sounds. No guarding, no rebound. EXTREMITIES: Palpable peripheral pulses. 2+ edema to bilateral lower extremities. NEUROLOGICAL: Pt oriented x 3. No focal deficits. PSYCH: Normal mood, normal affect. - Labs CBC & Chem 7: 09/01/16 05:53 09/01/16 05:53 Labs: Abnormal Lab Results - Last 24 Hours (Table) 08/31/16 08/31/16 09/01/16 Range/Units 17:07 22:22 05:53 WBC (3.8-10.6) k/uL RBC (4.30-5.90) m/uL Hgb (13.0-17.5) gm/dL Hct (39.0-53.0) % Neutrophils # (1.3-7.7) k/uL Lymphocytes # (1.0-4.8) k/uL Sodium 136 L (137-145) mmol/L Creatinine 1.30 H (0.66-1.25) mg/dL Glucose 175 H (74-99) mg/dL POC Glucose (mg/dL) 156 H 177 H (75-99) mg/dL Total Bilirubin 7.0 H (0.2-1.3) mg/dL AST 159 H (17-59) U/L ALT 213 H (21-72) U/L Alkaline Phosphatase 358 H (38-126) U/L Albumin 3.2 L (3.5-5.0) g/dL 09/01/16 09/01/16 09/01/16 Range/Units 05:53 08:30 11:14 WBC 10.9 H (3.8-10.6) k/uL RBC 3.70 L (4.30-5.90) m/uL Hgb 11.1 L (13.0-17.5) gm/dL Hct 34.9 L (39.0-53.0) % Neutrophils # 9.1 H (1.3-7.7) k/uL Lymphocytes # 0.7 L (1.0-4.8) k/uL Sodium (137-145) mmol/L Creatinine (0.66-1.25) mg/dL Glucose (74-99) mg/dL POC Glucose (mg/dL) 181 H 162 H (75-99) mg/dL Total Bilirubin (0.2-1.3) mg/dL AST (17-59) U/L ALT (21-72) U/L Alkaline Phosphatase (38-126) U/L Albumin (3.5-5.0) g/dL Assessment and Plan Plan: Impression: 1. Obstructive jaundice with history of common bile duct stone. 2. History of cholecystectomy. 3. History of recent ERCP with unsuccessful common bile duct stone extraction with biliary stent placement. 4. History of liver abscess. Plan: Continue to monitor patient. Patient has been evaluated by gastroenterology service and is scheduled for an ERCP today. Continue medical management. We' ll continue to follow. The above impression and plan have been discussed and directed by Dr. Suh. Dao ALONSO acting as scribe for Dr. Suh.
[2016-09-01] MEDS ORDERED: IV FLUID CONTINUATION 900 ML IV ONE (14:25)
[2016-09-01] MEDS ORDERED: diphenhydrAMINE 50 MG/ML 1 ML VIAL ONE (15:01)
[2016-09-01] MEDS ORDERED: PROPOFOL 10 MG/ML 20 ML VIAL IV ONE (15:01)
[2016-09-01] MEDS ORDERED: fentaNYL (PF) 50 MCG/ML 2 ML AMP ONE (15:01)
[2016-09-01] MEDS ORDERED: HYDROCORTISONE SUCCINATE 100 MG/2 ML VIAL ONE (15:01)
[2016-09-01] MEDS ORDERED: MIDAZOLAM 2 MG/2 ML VIAL ONE (15:01)
[2016-09-01] MEDS ORDERED: IOHEXOL 300 MG/ML 50 ML BOTTLE MISCELLANE ONE (15:08)
--- NOTE | 2016-09-01 15:52 | P.PCN ---
Date of Procedure: 09/01/16 Procedure(s) Performed: Procedure: Endoscopic retrograde cholangiography and enlargement of sphincterotomy with extraction of multiple common bile duct stones using 11.5 mm balloon catheter. Preoperative diagnosis: Jaundice. Postoperative diagnosis: Dilated common bile duct and filling defects consistent with retained common bile duct stones, successfully extracted, after enlarging the sphincterotomy, using the 11.5 mm balloon catheter. Brief clinical history: the patient is an 86-year-old male past medical history of liver abscess February 2016, malaria, skin carcinoma, pacemaker, cholelithiasis status post cholecystectomy, open ventral hernia repair, diabetes mellitus, hypertension, appendectomy, sleep apnea, anxiety, and depression. Admitted with jaundice without fever and midepigastric/lower sternal chest pain. Denies hematemesis, hematochezia, melena. Intermittent nausea and no emesis. Patient was hospitalized August 12 with fever and suspected recurrent liver abscess however CT scan reported dilation of biliary tree. He underwent ERCP evaluation on 08/23/2016 with findings of large CBD stone with unsuccessful extraction status post placement of biliary stent. He was discharged with Actigall twice daily and continuance of Cipro 500 mg twice daily. At that time his transaminases and bilirubin were unremarkable. He returns to the hospital yesterday with new onset of jaundice. Total bilirubin 3.1 on admission, AST 449-515. ALT 253-324. Alkaline phosphatase 291-309. Troponin 0.048-0.049. Chronically reports back and neck pain as well as mid sternal/epigastric discomfort. Requests [place] every 4 hours for his pain. His jaundice has progressed since admission. This evaluation is to assess the stent patency and intervene accordingly. The details are summarized in the history and physical and dictated consultations and progress notes. Procedure: With the patient in the prone position and after informed consent and adequate sedation, I passed the Olympus video duodenoscope down the esophagus into the stomach then passed it through the pylorus into the duodenum. I brought the papilla into view. I could not see the biliary stent at the papillary orifice. I went ahead and used the balloon catheter to perform a cholangiogram. There was a filling defect in the dilated common bile duct as previously described. I proceeded to exchange the balloon for a sphincterotome over the guidewire and enlarged the sphincterotomy slightly. Following that I repeated the cholangiogram then proceeded to extract the common bile duct stone using the 11.5 mm balloon catheter. A large stone was extracted initially then a repeat cholangiogram showed a smaller filling defect which turned out to be another common bile duct stone that was then extracted using the inflated balloon catheter. I performed multiple sweeps of the common bile duct using the inflated balloon which would come across the sphincterotomy site fully inflated. The patient tolerated the procedure well. Plan: I discussed the findings with the patient's family. We will keep him NPO tonight and check his labs in the morning. Continue IV fluids, IV antibiotics and symptomatic treatment for pain. Further plans will be made based on his course.
--- NOTE | 2016-09-01 16:12 | FL ---
EXAMINATION TYPE: FL ERCP DATE OF EXAM: 09/01/2016 3:42 PM COMPARISON: NONE HISTORY: Stones Fluoroscopy support supplied to the referring clinician. See dictated report from gastroenterology, 6 minutes 53 seconds fluoroscopy time, 4 intraoperative C-arm images document the procedure
[2016-09-01] MEDS: HEPARIN SODIUM,PORCINE 5,000 UNIT/ML 1 ML VIAL SQ SCH ×2 (16:44→23:22)
[2016-09-01] MEDS: PIPERACILLIN-TAZOBACTAM 3.375 GM in DEXTROSE/WATER 1 50ML.BAG IVPB SCH ×2 (16:49→23:22)
[2016-09-01 17:18] LABS: Glucose,Whole Blood 190 mg/dL (75-99)
[2016-09-01 21:09] LABS: Glucose,Whole Blood 253 mg/dL (75-99)
[2016-09-01] MEDS: METOPROLOL TARTRATE 25 MG TAB PO SCH (21:13)
[2016-09-01] MEDS: MAGNESIUM OXIDE 400 MG TAB PO SCH (21:13)
[2016-09-01] MEDS: FERROUS SULFATE 325 MG TAB PO SCH (21:13)
[2016-09-01] MEDS: TAMSULOSIN 0.4 MG CAP.ER.24H PO SCH (21:13)
[2016-09-02 01:28] LABS: Glucose,Whole Blood 257 mg/dL (75-99)
[2016-09-02] MEDS: LEVOTHYROXINE 75 MCG TAB PO SCH (04:13)
[2016-09-02] MEDS: HYDROcodone/APAP 7.5-325MG 1 EACH TAB PO PRN ×5 (04:13→22:33)
[2016-09-02] MEDS: GABAPENTIN 300 MG CAP PO SCH ×2 (04:45→22:14)
[2016-09-02 07:40] LABS: Glucose,Whole Blood 213 mg/dL (75-99)
--- NOTE | 2016-09-02 07:54 | CONS ---
DATE OF CONSULTATION: 09/01/2016 REASON FOR CONSULTATION: Fever. HISTORY OF PRESENT ILLNESS: Patient is an 86-year-old male with a past medical history significant for liver abscess, Klebsiella bacteremia and recent ERCP with attempt to remove the irritant stone that was unsuccessful. Sphincterotomy was done and patient was started on Actigall. Patient presented to the [facility] ER on 08/30/2016 with chief complaints of epigastric discomfort and some nausea, but no vomiting. The patient who was afebrile on admission, started spiking fever this morning. In addition to that the patient also noticed to have obstructive jaundice with elevated bilirubin and transaminases. The patient was started on Unasyn. I was asked to see the patient for further recommendations regarding antibiotic therapy. The patient recently did have a skin cancer removed from his scalp. There was some bleeding after this tissue was removed but no significant redness has been noticed. Most of this information has been obtained from review of the chart and talking to the grand daughter as patient was grossly lethargic, sleep and unable to provide any history. Review of systems could not be reliably obtained. The positive points as been mentioned in the HPI. His past medical history is significant for Klebsiella bacteremia thought to be related to his liver abscess, skin cancer, diabetes mellitus, gastroesophageal reflux disease, hyperlipidemia, hypertension, osteoarthritis, obstructive sleep apnea, hypothyroidism and gallstone. PAST SURGICAL HISTORY: Cholecystectomy, hernia repair, pacemaker placement, tonsillectomy, appendectomy, bilateral cataract with lens implant and liver abscess aspiration. SOCIAL HISTORY: Remote history of smoking. No drinking or drug use. FAMILY HISTORY: Mother with history of leukemia, lived to old age of 89. ALLERGIES: Statins, contrast dye. Medications currently include the patient is on Tylenol, [place], Maalox, aspirin, TUMS, Cipro, Pepcid, iron sulfate, Flonase, Lasix, Neurontin, heparin, Lantus, Humalog, Synthroid, Unasyn, Flomax and Actigall. On examination, blood pressure is 124/61 with a pulse of 78, temperature 98. T-max is 101. He is 98% on room air. General description is an elderly male, lying in bed in no distress. No tachypnea or accessory muscle respiration use. HEENT examination shows jaundice. Oral mucous membrane dry. Examination of the head scalp wound with no surrounding swelling, redness or drainage. NECK: Trachea central. There is no thyromegaly. LUNGS: Unlabored breathing. Clear to auscultation anteriorly. HEART: S1, S2 with regular rate and rhythm. ABDOMEN: Soft, mild tender right upper quadrant area. No guarding, no rigidity. EXTREMITIES: No edema of feet. SKIN: No rash or mass palpable. NEUROLOGICAL: Patient remains lethargic. Orientation could not be determined. LABS: Bilirubin of 7, AST 159, ALT 213, BUN of 14, creatinine 1.30, hemoglobin 11.1, white count 10.9. Blood culture obtained, currently pending. DIAGNOSTIC IMPRESSION AND PLAN: Patient with fever in a patient with obstructive jaundice with recent ERCP with attempt to remove the stone and that could not be done, status post sphincterotomy now with obstructive jaundice likely representing a case of ascending cholangitis to be the likely cause of his fever. The wound on the scalp post resection of the skin cancer does not look inflamed to be responsible for the fever. PLAN: 1. Discontinue the Unasyn. 2. Start the patient on Zosyn 3.375 grams IV piggyback q.8 hour. 3. Will request for a biliary sample for cultures at the time of repeat ERCP today. 4. Will follow up on the clinical condition and cultures to further adjust the medication if needed. Thank you for this consultation. Will follow this patient along with you. KIM
[2016-09-02] MEDS: PIPERACILLIN-TAZOBACTAM 3.375 GM in DEXTROSE/WATER 1 50ML.BAG IVPB SCH ×2 (08:19→16:31)
[2016-09-02] MEDS: INSULIN GLARGINE 100 UNIT/ML 10 ML VIAL SQ SCH (08:19)
[2016-09-02] MEDS: CIPROFLOXACIN HCL 500 MG TAB PO SCH (08:20)
[2016-09-02] MEDS: HEPARIN SODIUM,PORCINE 5,000 UNIT/ML 1 ML VIAL SQ SCH ×3 (08:21→22:15)
[2016-09-02] MEDS: LISINOPRIL 5 MG TAB PO SCH (08:21)
[2016-09-02] MEDS: FAMOTIDINE 20 MG TAB PO SCH (08:21)
[2016-09-02] MEDS: metFORMIN 500 MG TAB PO SCH (08:21)
[2016-09-02] MEDS: ASPIRIN 81 MG CHEW PO SCH (08:21)
[2016-09-02] MEDS: URSODIOL 300 MG CAP PO SCH ×2 (08:21→16:31)
[2016-09-02] MEDS: FUROSEMIDE 20 MG TAB PO SCH ×2 (08:22→16:31)
[2016-09-02] MEDS: POTASSIUM CHLORIDE ER 20 MEQ TAB.ER PO SCH (08:22)
[2016-09-02] MEDS: LORATADINE 10 MG TAB PO SCH (08:23)
[2016-09-02] MEDS: INSULIN LISPRO (humaLOG) 300 UNIT/3 ML VIAL SQ SCH ×4 (08:25→22:14)
--- NOTE | 2016-09-02 08:58 | P.PN ---
Subjective 86-year-old male being seen on rounds this morning is currently sitting up in bed. Patient's asking for his [place] Patient currently is stating there is less abdominal pain. Patient remains jaundice labs are pending Patient is status post: Endoscopic retrograde cholangiography and enlargement of sphincterotomy with extraction of multiple common bile duct stones using 11.5 mm balloon catheter. Done on September 01. Objective - Vital Signs Vital signs: Vital Signs Temp 97.9 F 09/02/16 07:00 Pulse 67 09/02/16 07:00 Resp 18 09/02/16 07:00 BP 118/61 09/02/16 07:00 Pulse Ox 97 09/02/16 07:00 Intake & Output 09/01/16 09/02/16 09/02/16 18:59 06:59 18:59 Intake Total 300 Balance 300 Weight 113 kg Intake: IV 300 Other: Voiding Method Urinal # Voids 3 0 # Bowel Movements 0 - Exam Physical exam 86-year-old male sitting up in bed appears in no acute distress talkative appears less jaundiced this morning HEENT dressing removed from the scalp area peyton in place around the staple surgical site is redness. Noted a scant amount of greenish drainage on the dressing. Lungs essentially clear with adequate air movement no shortness of breath on room air Heart S1-S2 audible regular denying chest pain Abdomen soft non-distended with normal active bowel tones. No guarding no rebound states urinating no difficulty no stooling does report having "mild epigastric discomfort extremities no edema - Labs CBC & Chem 7: 09/01/16 05:53 09/01/16 05:53 Labs: Abnormal Lab Results - Last 24 Hours (Table) 09/01/16 09/01/16 09/01/16 Range/Units 11:14 17:15 20:58 POC Glucose (mg/dL) 162 H 190 H 253 H (75-99) mg/dL 09/02/16 09/02/16 Range/Units 01:15 07:38 POC Glucose (mg/dL) 257 H 213 H (75-99) mg/dL Microbiology - Last 24 Hours (Table) 09/01/16 06:31 Blood Culture - Preliminary Blood No Growth after 24 hours 09/01/16 05:53 Blood Culture - Preliminary Blood No Growth after 24 hours 09/01/16 10:00 Gram Stain - Preliminary Head Wound Culture - Preliminary 09/01/16 10:00 Gram Stain - Preliminary Head Wound Culture - Preliminary 09/01/16 10:00 Anaerobic Culture - Preliminary Head 09/01/16 10:00 Anaerobic Culture - Preliminary Head Assessment and Plan Plan: Impression History of a liver abscess Present on admission mid epigastric pain with jaundice suspect obstructive jaundice likely due to stent occlusion recent hospitalization 08/23/2016 with fever and dilated biliary tree status post ERCP 08/23/2016 with findings of large retained CBD stone with unsuccessful removal status post biliary stent placement Elevated liver enzymes History of biliary stent insertion Mildly elevated troponin no evidence of acute coronary syndrome likely a type II Cognitive impairment suspect dementia duration undetermined with no behavior changes History of sleep apnea with CPAP support Chronic back pain with narcotic dependent Anxiety disorder nonspecified Obesity BMI 32 Chronically debilitated with gait imbalance 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 Plan Repeat labs in the morning Await further input by GI service Resume home meds as appropriate Pain control DVT and GI prophylaxis Will restart diet when okay with GI service Await infectious diseases recommendations scalpel The above dictated assessment and findings were discussed with Dr. Bailey. Impression and the plan of care have been dictated as directed. Adore Hightower nurse practitioner acting as a scribe for Dr. Bailey].
[2016-09-02 10:03] LABS: ALT 136 U/L (21-72); AST 70 U/L (17-59); Alkaline Phosphatase 277 U/L (38-126); Anion Gap 12 mmol/L; Blood Urea Nitrogen 36 mg/dL (9-20); Calcium 8.7 mg/dL (8.4-10.2); Carbon Dioxide 26 mmol/L (22-30); Chloride 101 mmol/L (98-107); Glucose 191 mg/dL (74-99); Non-African American GFR(MDRD) 27 (>60 ml/min/1.73 sqM); Potassium 4.4 mmol/L (3.5-5.1); Sodium 139 mmol/L (137-145); Total Bilirubin 5.9 mg/dL (0.2-1.3); Total Protein 6.1 g/dL (6.3-8.2)
--- NOTE | 2016-09-02 10:13 | P.PN ---
Subjective Principal diagnosis: Obstructive jaundice 86-year-old male status post ERCP with sphincterotomy balloon stone extraction 2 yesterday without replacement of biliary stent. Feels much better today. Denies abdominal pain. Afebrile prior to ERCP. Afebrile postprocedure. Total bilirubin 5.9. Preliminary blood cultures negative. Objective - Vital Signs Vital signs: Vital Signs Temp 97.9 F 09/02/16 07:00 Pulse 67 09/02/16 07:00 Resp 18 09/02/16 07:00 BP 118/61 09/02/16 07:00 Pulse Ox 97 09/02/16 07:00 Intake & Output 09/01/16 09/02/16 09/02/16 18:59 06:59 18:59 Intake Total 300 Balance 300 Weight 113 kg Intake: IV 300 Other: Voiding Method Urinal # Voids 3 0 # Bowel Movements 0 - Exam General appearance: The patient is alert, oriented, in no acute distress. Jaundice. HET: Head is normocephalic and atraumatic. Scalp dressings with serosanguineous drainage. Sclerae icterus. Pupils are equal and reactive. Oropharynx is clear without lesions. Neck: Supple without lymphadenopathy. Trachea midline. Heart: S1 S2. Regular rate and rhythm. Lungs: No crackles or wheezes are heard. Abdomen: Soft, nontender, nondistended with bowel sounds. No peritoneal signs. No palpable organomegaly or masses. Extremities: Normal skin color and turgor. No cyanosis, rash, ulceration, clubbing, or edema. Radial and pedal pulses are 2/4 bilaterally. Neurological: No focal deficits. Strength and sensation are grossly intact. - Labs CBC & Chem 7: 09/01/16 05:53 09/02/16 09:13 Labs: Abnormal Lab Results - Last 24 Hours (Table) 09/01/16 09/01/16 09/01/16 Range/Units 11:14 17:15 20:58 BUN (9-20) mg/dL Creatinine (0.66-1.25) mg/dL Glucose (74-99) mg/dL POC Glucose (mg/dL) 162 H 190 H 253 H (75-99) mg/dL Total Bilirubin (0.2-1.3) mg/dL AST (17-59) U/L ALT (21-72) U/L Alkaline Phosphatase (38-126) U/L Total Protein (6.3-8.2) g/dL Albumin (3.5-5.0) g/dL Lipase (23-300) U/L 09/02/16 09/02/16 09/02/16 Range/Units 01:15 07:38 09:13 BUN 36 H (9-20) mg/dL Creatinine 2.33 H (0.66-1.25) mg/dL Glucose 191 H (74-99) mg/dL POC Glucose (mg/dL) 257 H 213 H (75-99) mg/dL Total Bilirubin 5.9 H (0.2-1.3) mg/dL AST 70 H (17-59) U/L ALT 136 H (21-72) U/L Alkaline Phosphatase 277 H (38-126) U/L Total Protein 6.1 L (6.3-8.2) g/dL Albumin 2.7 L (3.5-5.0) g/dL Lipase <10 L (23-300) U/L Microbiology - Last 24 Hours (Table) 09/01/16 10:00 Gram Stain - Preliminary Head Wound Culture - Preliminary 09/01/16 06:31 Blood Culture - Preliminary Blood No Growth after 24 hours 09/01/16 05:53 Blood Culture - Preliminary Blood No Growth after 24 hours 09/01/16 10:00 Gram Stain - Preliminary Head Wound Culture - Preliminary 09/01/16 10:00 Anaerobic Culture - Preliminary Head 09/01/16 10:00 Anaerobic Culture - Preliminary Head Assessment and Plan (1) Obstructive jaundice Narrative/Plan: Obstructive jaundice secondary to choledocholithiasis with fever status post ERCP with sphincter unable and stone extraction. Suspect ascending cholangitis possible sepsis. Status: Acute (2) Elevated liver enzymes Status: Acute (3) S/P ERCP Status: Acute (4) History of biliary stent insertion Status: Acute Plan: 1. We will defer to infectious disease for discharge antibiotics if indicated. 2. Follow up in GI office as needed. 3. Low-fat diabetic diet. 4. Discharge per medicine. Assessment and plan a care discussed with Dr. Kat.
[2016-09-02 11:57] LABS: Glucose,Whole Blood 201 mg/dL (75-99)
[2016-09-02] MEDS: FOLIC ACID 1 MG TAB PO SCH (12:19)
--- NOTE | 2016-09-02 14:23 | P.PN ---
Subjective Principal diagnosis: Obstructive jaundice Patient is an 86-year-old male with a medical history significant for liver abscess and recent choledocholithiasis with ERCP with sphincterotomy and biliary stent placement with unsuccessful attempt to extract common bile duct stone on 08/23/2016. Patient admitted with evidence of obstructive jaundice and is status post ERCP with sphincterotomy and balloon stone extraction 2 yesterday without replacement of biliary stent. Upon examination, patient sitting on the side of the bed. Patient is feeling better. Denies chills, nausea, vomiting, or abdominal pain. Total bilirubin decreased to 5.9, alkaline phosphatase decreased to 277, AST and ALT decreased from yesterday. Afebrile. Gastrointestinal service is following patient, notes reviewed. Objective - Vital Signs Vital signs: Vital Signs Temp 97.9 F 09/02/16 07:00 Pulse 67 09/02/16 11:02 Resp 18 09/02/16 11:02 BP 118/61 09/02/16 07:00 Pulse Ox 97 09/02/16 07:00 Intake & Output 09/01/16 09/02/16 09/02/16 18:59 06:59 18:59 Intake Total 300 760 Output Total 1 Balance 300 759 Weight 113 kg Intake: IV 300 Oral 760 Output: Stool 1 Other: Voiding Method Urinal Urinal # Voids 3 0 # Bowel Movements 0 - Exam GENERAL: Pt awake and alert, well-nourished, in no acute distress. HEAD: Atraumatic, normocephalic. EYES: Pupils equal and round. Sclera icteric. ENT: Moist mucous membranes. LUNGS: Breath sounds clear to auscultation bilaterally. No wheezes, rales, or rhonchi. HEART: Heart S1, S2, no S3 or S4. Regular rate and rhythm. No murmurs, rubs or gallops. ABDOMEN: Soft, obese, nontender, nondistended, normoactive bowel sounds. No guarding, no rebound. NEUROLOGICAL: Pt oriented x 3. No focal deficits. - Labs CBC & Chem 7: 09/01/16 05:53 09/02/16 09:13 Labs: Abnormal Lab Results - Last 24 Hours (Table) 09/01/16 09/01/16 09/02/16 Range/Units 17:15 20:58 01:15 BUN (9-20) mg/dL Creatinine (0.66-1.25) mg/dL Glucose (74-99) mg/dL POC Glucose (mg/dL) 190 H 253 H 257 H (75-99) mg/dL Total Bilirubin (0.2-1.3) mg/dL AST (17-59) U/L ALT (21-72) U/L Alkaline Phosphatase (38-126) U/L Total Protein (6.3-8.2) g/dL Albumin (3.5-5.0) g/dL Lipase (23-300) U/L 09/02/16 09/02/16 09/02/16 Range/Units 07:38 09:13 11:55 BUN 36 H (9-20) mg/dL Creatinine 2.33 H (0.66-1.25) mg/dL Glucose 191 H (74-99) mg/dL POC Glucose (mg/dL) 213 H 201 H (75-99) mg/dL Total Bilirubin 5.9 H (0.2-1.3) mg/dL AST 70 H (17-59) U/L ALT 136 H (21-72) U/L Alkaline Phosphatase 277 H (38-126) U/L Total Protein 6.1 L (6.3-8.2) g/dL Albumin 2.7 L (3.5-5.0) g/dL Lipase <10 L (23-300) U/L Microbiology - Last 24 Hours (Table) 09/01/16 10:00 Gram Stain - Preliminary Head Wound Culture - Preliminary 09/01/16 06:31 Blood Culture - Preliminary Blood No Growth after 24 hours 09/01/16 05:53 Blood Culture - Preliminary Blood No Growth after 24 hours 09/01/16 10:00 Gram Stain - Preliminary Head Wound Culture - Preliminary 09/01/16 10:00 Anaerobic Culture - Preliminary Head 09/01/16 10:00 Anaerobic Culture - Preliminary Head Assessment and Plan Plan: Impression: 1. Obstructive jaundice with history of common bile duct stone status post ERCP and enlargement of sphincterotomy with extraction of multiple common bile duct stones using 11.5 mm balloon catheter on 09/01/2016. 2. History of cholecystectomy. 3. History of recent ERCP with unsuccessful common bile duct stone extraction with biliary stent placement. 4. History of liver abscess. Plan: Continue to monitor patient. Continue medical management. We'll continue to follow. The above impression and plan have been discussed and directed by Dr. Suh. Dao ALONSO acting as scribe for Dr. Suh.
[2016-09-02 16:56] LABS: Glucose,Whole Blood 215 mg/dL (75-99)
--- NOTE | 2016-09-02 17:21 | PN ---
DATE OF SERVICE: 09/02/2016 Reason for follow-up is fever and likely ascending cholangitis. INTERVAL HISTORY: The patient is afebrile. The patient is status post ERCP yesterday with removal of two stones. Patient tolerated the procedure. This morning he is feeling better. His abdominal pain has improved. No nausea or vomiting. Denies any chest pain, shortness of breath or cough. On examination, blood pressure is 118/61 with a pulse of 57, temperature 97.9. He is 97% on room air. General description is an elderly male lying in bed in no distress. HEENT EXAMINATION: The scalp wound is clean with no evidence of cellulitis. LUNGS: Unlabored breathing. Clear to auscultation anteriorly. HEART: S1, S2. Regular rate and rhythm. ABDOMEN: Soft, no tenderness. LABS: BUN of 36 and creatinine 2.33. Blood culture was obtained yesterday, currently pending. DIAGNOSTIC IMPRESSION AND PLAN: Patient with fever with concern for likely ascending cholangitis and the patient did have obstructive jaundice, status post ERCP and removal of 2 stones. Will wait for the culture to finalize. Continue the patient on Zosyn. Will need to monitor his kidney function closely as the patient did have significant jump in creatinine from yesterday. Continue supportive care.
[2016-09-02] MEDS ORDERED: VANCOMYCIN 2,500 MG in SODIUM CHLORIDE 0.9% 500 ML IVPB ONE ×2 (18:00→22:00)
[2016-09-02] MEDS ORDERED: IV VANCOMYCIN PER PHARMACY 1 EACH MISC MISCELLANE PRN (20:00)
[2016-09-02 21:35] LABS: Glucose,Whole Blood 241 mg/dL (75-99)
[2016-09-02] MEDS: FERROUS SULFATE 325 MG TAB PO SCH (22:14)
[2016-09-02] MEDS: MAGNESIUM OXIDE 400 MG TAB PO SCH (22:14)
[2016-09-02] MEDS: METOPROLOL TARTRATE 25 MG TAB PO SCH (22:15)
[2016-09-02] MEDS: TAMSULOSIN 0.4 MG CAP.ER.24H PO SCH (22:15)
[2016-09-03] MEDS: PIPERACILLIN-TAZOBACTAM 3.375 GM in DEXTROSE/WATER 1 50ML.BAG IVPB SCH ×4 (01:50→23:37)
[2016-09-03] MEDS: HYDROcodone/APAP 7.5-325MG 1 EACH TAB PO PRN ×6 (02:38→23:35)
[2016-09-03] MEDS: CIPROFLOXACIN HCL 500 MG TAB PO SCH ×2 (06:23→23:37)
[2016-09-03] MEDS: LEVOTHYROXINE 75 MCG TAB PO SCH (06:23)
[2016-09-03 08:38] LABS: Glucose,Whole Blood 183 mg/dL (75-99)
[2016-09-03] MEDS: INSULIN GLARGINE 100 UNIT/ML 10 ML VIAL SQ SCH (08:41)
[2016-09-03] MEDS: INSULIN LISPRO (humaLOG) 300 UNIT/3 ML VIAL SQ SCH ×4 (08:42→21:06)
[2016-09-03] MEDS: URSODIOL 300 MG CAP PO SCH ×2 (08:42→17:43)
[2016-09-03] MEDS: HEPARIN SODIUM,PORCINE 5,000 UNIT/ML 1 ML VIAL SQ SCH ×3 (08:43→23:37)
[2016-09-03] MEDS: FAMOTIDINE 20 MG TAB PO SCH (08:44)
[2016-09-03] MEDS: FUROSEMIDE 20 MG TAB PO SCH ×2 (08:44→15:09)
[2016-09-03] MEDS: GABAPENTIN 300 MG CAP PO SCH ×2 (08:44→20:07)
[2016-09-03] MEDS: ASPIRIN 81 MG CHEW PO SCH (08:44)
[2016-09-03] MEDS: POTASSIUM CHLORIDE ER 20 MEQ TAB.ER PO SCH (08:45)
[2016-09-03] MEDS: LISINOPRIL 5 MG TAB PO SCH (08:45)
[2016-09-03] MEDS: LORATADINE 10 MG TAB PO SCH (08:45)
--- NOTE | 2016-09-03 09:27 | P.PN ---
Subjective Principal diagnosis: Choledocholithiasis Patient appears be doing better. Denies abdominal pain. He states the yellowness discoloration of his skin is improved. No labs from today. He is afebrile. Tolerating diet. Objective - Vital Signs Vital signs: Vital Signs Temp 96.3 F L 09/03/16 07:00 Pulse 74 09/03/16 07:00 Resp 18 09/03/16 07:00 BP 105/53 09/03/16 07:00 Pulse Ox 100 09/03/16 07:00 Intake & Output 09/02/16 09/03/16 09/03/16 18:59 06:59 18:59 Intake Total 760 100 Output Total 1 Balance 759 100 Weight 115 kg Intake: Oral 760 100 Output: Stool 1 Other: Voiding Method Urinal Toilet Urinal # Voids 1 1 1 # Bowel Movements 0 - Exam Abdomen: Soft, nontender, nondistended - Labs CBC & Chem 7: 09/01/16 05:53 09/02/16 09:13 Labs: Abnormal Lab Results - Last 24 Hours (Table) 09/02/16 09/02/16 09/02/16 Range/Units 09:13 11:55 16:54 BUN 36 H (9-20) mg/dL Creatinine 2.33 H (0.66-1.25) mg/dL Glucose 191 H (74-99) mg/dL POC Glucose (mg/dL) 201 H 215 H (75-99) mg/dL Total Bilirubin 5.9 H (0.2-1.3) mg/dL AST 70 H (17-59) U/L ALT 136 H (21-72) U/L Alkaline Phosphatase 277 H (38-126) U/L Total Protein 6.1 L (6.3-8.2) g/dL Albumin 2.7 L (3.5-5.0) g/dL Lipase <10 L (23-300) U/L 09/02/16 09/03/16 Range/Units 21:28 08:30 BUN (9-20) mg/dL Creatinine (0.66-1.25) mg/dL Glucose (74-99) mg/dL POC Glucose (mg/dL) 241 H 183 H (75-99) mg/dL Total Bilirubin (0.2-1.3) mg/dL AST (17-59) U/L ALT (21-72) U/L Alkaline Phosphatase (38-126) U/L Total Protein (6.3-8.2) g/dL Albumin (3.5-5.0) g/dL Lipase (23-300) U/L Microbiology - Last 24 Hours (Table) 09/01/16 05:53 Blood Culture Gram Stain - Preliminary Blood Blood Culture - Preliminary Group D Enterococcus 09/01/16 06:31 Blood Culture - Preliminary Blood No Growth after 48 hours 09/01/16 05:53 Blood Culture - Preliminary Blood 09/01/16 10:00 Gram Stain - Preliminary Head Wound Culture - Preliminary Assessment and Plan (1) Obstructive jaundice Narrative/Plan: Recheck CMP level. Continue diet. Status: Acute
[2016-09-03] MEDS: FOLIC ACID 1 MG TAB PO SCH (11:07)
[2016-09-03 12:17] LABS: Glucose,Whole Blood 263 mg/dL (75-99)
--- NOTE | 2016-09-03 13:47 | PN ---
DATE OF SERVICE: 09/03/2016 The patient is an 86-year-old pleasant white male admitted to the hospital with obstructive jaundice. He underwent an ERCP by Dr. Stapleton 2 days ago with extension of the biliary sphincterotomy and multiple CBD stones were extracted. Patient is feeling much better. The abdominal pain has resolved. No nausea or vomiting. On physical examination, he appears comfortable in no apparent distress. Vital signs are stable. Blood pressure 127/63, pulse rate 56, temperature 97.1. HEENT examination unremarkable. Conjunctivae pink. Sclerae anicteric. Oral cavity, no lesions. NECK: No JVD or lymph node enlargement. Chest was clear to auscultation. HEART: Regular rate and rhythm. ABDOMEN: Soft. Bowel sounds are positive. No organomegaly. EXTREMITIES: No pedal edema SKIN: No rashes. NEURO: He is alert and oriented x3. No focal deficits. Labs from yesterday T-bili was 5.9, AST 70, ALT 136. No labs available from today. IMPRESSION: Obstructive jaundice secondary to multiple CBD stones, status post ERCP with biliary stone extraction by Dr. Stapleton 2 days ago and patient is doing extremely well. His labs are gradually improving. T-bili is down to 5.9 yesterday. He is presently on broad-spectrum antibiotics and Dr. Walters is following the patient closely. RECOMMENDATIONS: 1. Continue with broad-spectrum antibiotics. 2. Advanced to low fat diet. 3. He can be discharged home with an outpatient follow up with Dr. Stapleton in 2 weeks.
[2016-09-03 16:42] LABS: Glucose,Whole Blood 253 mg/dL (75-99)
[2016-09-03] MEDS: TAMSULOSIN 0.4 MG CAP.ER.24H PO SCH (20:08)
[2016-09-03] MEDS: FERROUS SULFATE 325 MG TAB PO SCH (20:08)
[2016-09-03] MEDS: METOPROLOL TARTRATE 25 MG TAB PO SCH (20:08)
[2016-09-03] MEDS: MAGNESIUM OXIDE 400 MG TAB PO SCH (20:08)
[2016-09-03 20:53] LABS: Glucose,Whole Blood 289 mg/dL (75-99)
[2016-09-04] MEDS: HYDROcodone/APAP 7.5-325MG 1 EACH TAB PO PRN ×2 (03:34→08:09)
[2016-09-04] MEDS: LEVOTHYROXINE 75 MCG TAB PO SCH (05:46)
[2016-09-04 07:22] LABS: Glucose,Whole Blood 136 mg/dL (75-99)
[2016-09-04 07:57] VITALS: BP 116/57; PULSE 60; RESP 19; TEMP 96.2
[2016-09-04] MEDS: INSULIN LISPRO (humaLOG) 300 UNIT/3 ML VIAL SQ SCH ×2 (08:04→12:26)
[2016-09-04] MEDS: INSULIN GLARGINE 100 UNIT/ML 10 ML VIAL SQ SCH (08:04)
[2016-09-04] MEDS: HEPARIN SODIUM,PORCINE 5,000 UNIT/ML 1 ML VIAL SQ SCH (08:05)
[2016-09-04] MEDS: URSODIOL 300 MG CAP PO SCH (08:05)
[2016-09-04] MEDS: ASPIRIN 81 MG CHEW PO SCH (08:05)
[2016-09-04] MEDS: FAMOTIDINE 20 MG TAB PO SCH (08:05)
[2016-09-04] MEDS: GABAPENTIN 300 MG CAP PO SCH (08:06)
[2016-09-04] MEDS: LISINOPRIL 5 MG TAB PO SCH (08:06)
[2016-09-04] MEDS: POTASSIUM CHLORIDE ER 20 MEQ TAB.ER PO SCH (08:06)
[2016-09-04] MEDS: FUROSEMIDE 20 MG TAB PO SCH (08:06)
[2016-09-04] MEDS: LORATADINE 10 MG TAB PO SCH (08:06)
[2016-09-04] MEDS: PIPERACILLIN-TAZOBACTAM 3.375 GM in DEXTROSE/WATER 1 50ML.BAG IVPB SCH (08:34)
[2016-09-04 08:43] LABS: Basophils % (A) 1 %; CH 29.8; CHCM 31.1; Eosinophils # (A) 0.2 k/uL (0-0.7); Eosinophils % (A) 5 %; HCT 33.9 % (39.0-53.0); HDW 2.54; HGB 10.4 gm/dL (13.0-17.5); Hypochromasia Slight; Luc % (Auto) 4; Lymphocytes # (A) 1.5 k/uL (1.0-4.8); Lymphocytes % (A) 32 %; MCH 29.5 pg (25.0-35.0); MCHC 30.6 g/dL (31.0-37.0); MCV 96.6 fL (80.0-100.0); Mean Platelet Volume 8.2; Monocytes # (A) 0.4 k/uL (0-1.0); Monocytes % (A) 8 %; Neutrophils # (A) 2.3 k/uL (1.3-7.7); Neutrophils % (A) 50 %; WBC 4.7 k/uL (3.8-10.6); WBC (Perox) 4.84
[2016-09-04 08:55] LABS: Potassium 4.3 mmol/L (3.5-5.1); Total Protein 6.4 g/dL (6.3-8.2)
[2016-09-04] MEDS ORDERED: VANCOMYCIN 1,750 MG in SODIUM CHLORIDE 0.9% 250 ML IVPB SCH (10:00)
--- NOTE | 2016-09-04 10:30 | P.PN ---
Subjective Principal diagnosis: Choledocholithiasis The patient doing well today. Denies abdominal pain. Lab work shows improving LFTs. Objective - Vital Signs Vital signs: Vital Signs Temp 96.2 F L 09/04/16 07:00 Pulse 60 09/04/16 07:00 Resp 19 09/04/16 07:00 BP 116/57 09/04/16 07:00 Pulse Ox 100 09/04/16 07:00 Intake & Output 09/03/16 09/04/16 09/04/16 18:59 06:59 18:59 Intake Total 700 Balance 700 Weight 116 kg Intake: Oral 700 Other: Voiding Method Toilet Toilet Urinal Urinal # Voids 2 2 # Bowel Movements 1 - Exam Abdomen: Soft, nondistended, nontender - Labs CBC & Chem 7: 09/04/16 08:09 09/04/16 08:09 Labs: Abnormal Lab Results - Last 24 Hours (Table) 09/03/16 09/03/16 09/03/16 Range/Units 12:16 16:40 20:45 RBC (4.30-5.90) m/uL Hgb (13.0-17.5) gm/dL Hct (39.0-53.0) % MCHC (31.0-37.0) g/dL BUN (9-20) mg/dL Creatinine (0.66-1.25) mg/dL Glucose (74-99) mg/dL POC Glucose (mg/dL) 263 H 253 H 289 H (75-99) mg/dL Total Bilirubin (0.2-1.3) mg/dL ALT (21-72) U/L Alkaline Phosphatase (38-126) U/L Albumin (3.5-5.0) g/dL 09/04/16 09/04/16 09/04/16 Range/Units 07:12 08:09 08:09 RBC 3.50 L (4.30-5.90) m/uL Hgb 10.4 L (13.0-17.5) gm/dL Hct 33.9 L (39.0-53.0) % MCHC 30.6 L (31.0-37.0) g/dL BUN 35 H (9-20) mg/dL Creatinine 1.80 H (0.66-1.25) mg/dL Glucose 146 H (74-99) mg/dL POC Glucose (mg/dL) 136 H (75-99) mg/dL Total Bilirubin 3.0 H (0.2-1.3) mg/dL ALT 86 H (21-72) U/L Alkaline Phosphatase 303 H (38-126) U/L Albumin 3.0 L (3.5-5.0) g/dL Microbiology - Last 24 Hours (Table) 09/01/16 05:53 Blood Culture Gram Stain - Final Blood Blood Culture - Final Enterococcus faecalis 09/01/16 06:31 Blood Culture - Preliminary Blood No Growth after 72 hours 09/01/16 10:00 Anaerobic Culture - Preliminary Head 09/01/16 10:00 Gram Stain - Final Head Wound Culture - Final 09/01/16 10:00 Gram Stain - Final Head Wound Culture - Final Assessment and Plan (1) Obstructive jaundice Narrative/Plan: Continue diet. Stable for discharge from my standpoint. Status: Acute
--- NOTE | 2016-09-04 11:15 | PN ---
The patient is an 86 -year-old pleasant, white male admitted to the hospital with obstructive jaundice. He had an ERCP by Dr. Stapleton with CBD stone removal and he is doing much better. He started developing some blurred vision yesterday and he denies any abdominal pain. Reports no nausea or vomiting. On physical examination, he appears comfortable in no apparent distress. Vitals as are stable. Blood pressure 116/56, pulse rate 60, temperature 96.8. HEENT: Examination unremarkable. Conjunctivae are pink, slightly icteric. Oral cavity, no lesions. NECK: No JVD or lymph node enlargement. Chest clear to auscultation. HEART: Regular rate and rhythm. ABDOMEN: Soft. Bowel sounds are positive. No organomegaly. EXTREMITIES : No pedal edema. SKIN: No rashes. NEURO: He is alert and oriented x3. No focal deficits. LABS: WBC 4.7, hemoglobin 10.4, platelets are normal. T-bili is down to 3, AST 36, ALT 86, and alkaline phosphatase is 303. IMPRESSION: Obstructive jaundice, status post ERCP with common bile duct stone removal by Dr. Stapleton 3 days ago, his LFTs are gradually improving. T-bili is down to 3. RECOMMENDATIONS: 1. Patient on broad-spectrum antibiotics, which will be continued. 2. Advance diet as tolerated. 3. He can be discharged home today with outpatient follow up with Dr. Stapleton in 2 weeks.
[2016-09-04] MEDS: FOLIC ACID 1 MG TAB PO SCH (12:26)
[2016-09-04 12:27] LABS: Glucose,Whole Blood 272 mg/dL (75-99)
--- NOTE | 2016-10-10 18:36 | DS ---
DATE OF ADMISSION: 08/30/2016 DATE OF DISCHARGE: 09/04/2016 DISCHARGE MEDICATIONS: 1. Omeprazole 20 mg daily. 2. Ecotrin 81 mg daily. 3. Cipro 500 q.12 for 14 days. 4. Vitamin B12 500 daily. 5. Pepcid 20 mg daily. 6. Ferrous sulfate 325 mg daily. 7. Flonase nasal spray daily. 8. Folic acid 1 mg daily. 9. Lasix 20 mg b.i.d. 10. Neurontin 300 b.i.d. 11. [place] 7.5 every 4 hours. 12. ( ) Accu-Cheks a.c. b.i.d. 13. Lantus 30 units subcu daily. 14. Synthroid 75 mcg daily. 15. Zestril 5 mg daily. 16. Ranitidine 10 mg daily. 17. Mag oxide 400 mg daily. 18. Metformin 1000 daily. 19. Lopressor 125 mg daily. 20. [place]-3 fatty acids daily. 21. Prilosec 20 daily. 22. Potassium chloride 20 mEq daily. 23. Flomax 0.4 mg daily. CONDITION: Stable. PROGNOSIS: Guarded. Ambulate as tolerated. DISCHARGE DIAGNOSES: 1. Liver ( ) abdominal discomfort, acute abdominal pain. 2. Acute ureteral stone blockage of the liver. 3. Acute coronary syndrome. 4. Liver abscess. 5. Hypertension. 6. Dyslipidemia. 7. Diabetes mellitus, 8. Pacemaker. 9. Coronary artery disease. 10. Skin cancer of the head. 11. Systolic congestive heart failure. The patient was seen by Dr. Walters, Dr. Stapleton, Dr. Suh, cardiology. He underwent ERCP with stone removal and sphincterotomy. History of diastolic congestive heart failure. With empiric antibiotics and IV pain medicines, insulin to scale was given. Patient improved with IV antibiotics. Will need antibiotics long-term as an outpatient after stone was removed.
== END 2016-09-04 15:10 | disposition home health service (06) | DRG 445 ==
LOC: EC 17:30 → 6SEL 19:25 → 4MS4W 08-31 20:17
PROVIDERS: ADMIT Family Medicine; ATTEND Family Medicine
PROC: 0F798ZZ Dilation of Common Bile Duct, Via Natural or Artificial Opening Endoscopic (ICD-10-PCS; 2016-09-01)
PROC: 0FC98ZZ Extirpation of Matter from Common Bile Duct, Via Natural or Artificial Opening Endoscopic (ICD-10-PCS; principal; 2016-09-01 12:50)
PROC: BF101ZZ Fluoroscopy of Bile Ducts using Low Osmolar Contrast (ICD-10-PCS; 2016-09-01 12:50)
DX: K80.31 Calculus of bile duct with cholangitis, unspecified, with obstruction (principal); I45.3 Trifascicular block; F03.90 Unspecified dementia, unspecified severity, without behavioral disturbance, psychotic disturbance, mood disturbance, and anxiety; E11.9 Type 2 diabetes mellitus without complications; I10 Essential (primary) hypertension; D64.9 Anemia, unspecified; F11.20 Opioid dependence, uncomplicated; F41.9 Anxiety disorder, unspecified; R00.1 Bradycardia, unspecified; I45.10 Unspecified right bundle-branch block; R07.89 Other chest pain; K21.9 Gastro-esophageal reflux disease without esophagitis; G89.29 Other chronic pain; I44.0 Atrioventricular block, first degree; E03.9 Hypothyroidism, unspecified; G47.33 Obstructive sleep apnea (adult) (pediatric); K44.9 Diaphragmatic hernia without obstruction or gangrene; H53.8 Other visual disturbances; R50.9 Fever, unspecified; R60.0 Localized edema; R74.8 Abnormal levels of other serum enzymes; M19.90 Unspecified osteoarthritis, unspecified site; I44.30 Unspecified atrioventricular block; R01.1 Cardiac murmur, unspecified; F32.9 Major depressive disorder, single episode, unspecified; R11.0 Nausea; R26.9 Unspecified abnormalities of gait and mobility; E78.5 Hyperlipidemia, unspecified; M54.2 Cervicalgia; M54.9 Dorsalgia, unspecified; Z87.11 Personal history of peptic ulcer disease; Z87.891 Personal history of nicotine dependence; Z90.49 Acquired absence of other specified parts of digestive tract; Z88.8 Allergy status to other drugs, medicaments and biological substances; Z86.19 Personal history of other infectious and parasitic diseases; Z87.19 Personal history of other diseases of the digestive system; Z91.041 Radiographic dye allergy status; Z95.0 Presence of cardiac pacemaker; Z85.828 Personal history of other malignant neoplasm of skin; Z80.6 Family history of leukemia; Z98.42 Cataract extraction status, left eye; Z98.41 Cataract extraction status, right eye; Z96.1 Presence of intraocular lens; Z98.890 Other specified postprocedural states; Z79.82 Long term (current) use of aspirin; Z79.4 Long term (current) use of insulin; Z79.51 Long term (current) use of inhaled steroids; Z79.899 Other long term (current) drug therapy; Z79.84 Long term (current) use of oral hypoglycemic drugs
CPT/HCPCS: 36415; 43262; 43264; 71020; 74330; 80053; 80202; 82140; 82150; 82550; 82553; 83605; 83690; 83735; 84484; 85025; 85610; 85730; 87040; 87070; 87075; 87077; 87186; 87205; 93005; 93306; 96361; 96374; 99153; 99285

== ENCOUNTER 2016-09-16 21:25 | Inpatient (IN) | payer MEDICARE, BC ==
[2016-09-16] MEDS ORDERED: SODIUM CHLORIDE 0.9% 500 ML IV STA (21:51)
[2016-09-16 22:32] LABS: Basophils % (A) 0 %; CH 30.1; CHCM 31.7; Eosinophils % (A) 0 %; HCT 32.4 % (39.0-53.0); HDW 2.23; HGB 10.4 gm/dL (13.0-17.5); Luc # (Auto) 0.23; Luc % (Auto) 1; Lymphocytes % (A) 5 %; MCH 30.7 pg (25.0-35.0); MCHC 32.1 g/dL (31.0-37.0); MCV 95.4 fL (80.0-100.0); Mean Platelet Volume 8.3; Monocytes # (A) 1.1 k/uL (0-1.0); Monocytes % (A) 6 %; Neutrophils # (A) 16.4 k/uL (1.3-7.7); Neutrophils % (A) 88 %; RBC 3.39 m/uL (4.30-5.90); RDW 13.5 % (11.5-15.5); WBC 18.8 k/uL (3.8-10.6); WBC (Perox) 18.45
[2016-09-16] MEDS ORDERED: ONDANSETRON 4 MG/2 ML VIAL IVP STA (22:37)
[2016-09-16 22:42] LABS: Calcium 9.2 mg/dL (8.4-10.2); Magnesium 2.1 mg/dL (1.6-2.3); Total Bilirubin 2.7 mg/dL (0.2-1.3); Total Protein 7.5 g/dL (6.3-8.2)
--- NOTE | 2016-09-16 22:43 | ED ---
General Adult HPI - General Chief complaint: Weakness Stated complaint: flu like symptoms Time Seen by Provider: 09/16/16 21:30 Source: patient, RN notes reviewed Mode of arrival: wheelchair Limitations: no limitations - History of Present Illness Initial comments: This is an 86-year-old male who comes in complaining of generalized weakness. Patient states he recently had some stones removed from his liver and he was going to check in for a follow-up on Monday. Patient states he had this about waiting for 2 hours and ever since anything getting weaker and weaker lost his appetite and is not eating anything. Patient denies any fever chills or cough. Patient denies any headache patient denies numbness or focal weakness. Patient denies any lightheadedness dizziness or near syncopal episode. Patient denies chest pain palpitations difficulty breathing [place] of breath. Patient she states she has some mid periumbilical abdominal pain. Patient states she's had some occasional nausea but no vomiting or diarrhea. Patient denies any recent injury or trauma. - Related Data Home Medications Medication Instructions Recorded Confirmed Aspirin EC [Ecotrin Low Dose] 81 mg PO DAILY 10/13/14 08/30/16 Cyanocobalamin [Vitamin B-12] 500 mcg PO DAILY 10/13/14 08/30/16 Folic Acid 1 mg PO DAILY 10/13/14 08/30/16 Lisinopril [Zestril] 5 mg PO DAILY 10/13/14 08/30/16 Omeprazole [PriLOSEC] 20 mg PO HS 10/13/14 08/30/16 [place]-3 Fatty Acids/Fish Oil [Fish 1 cap PO DAILY 08/24/15 08/30/16 Oil 1,000 mg Softgel] Potassium Chloride ER [K-Dur 20] 20 meq PO DAILY 08/24/15 08/30/16 Levothyroxine Sodium [Synthroid] 75 mcg PO DAILY 02/21/16 08/30/16 metFORMIN HCL 1,000 mg PO DAILY@0900 02/21/16 08/30/16 Fluticasone Nasal [place] [Flonase 2 spray EA NOSTRIL DAILY PRN 03/25/16 08/30/16 Nasal [place]] Loratadine 10 mg PO DAILY 03/25/16 08/30/16 Magnesium Oxide [Mag-Ox] 400 mg PO HS 03/25/16 08/30/16 Tamsulosin [Flomax] 0.4 mg PO HS 03/25/16 08/30/16 Ferrous Sulfate [Feosol] 325 mg PO HS 08/11/16 08/30/16 Gabapentin [Neurontin] 300 mg PO BID 08/11/16 08/30/16 HYDROcodone/APAP 7.5-325MG [[place] 1 tab PO Q4H PRN 08/11/16 08/30/16 7.5-325] Insulin Aspart [NovoLOG] See Protocol SQ BID 08/11/16 08/30/16 Insulin Glargine [Lantus] 30 unit SQ AC-[id number] 08/11/16 08/30/16 Metoprolol Tartrate [Lopressor] 25 mg PO HS 08/11/16 08/30/16 Ubidecarenone [Co Q-10] 200 mg PO DAILY 08/11/16 08/30/16 Ursodiol [Marcos] 250 mg PO AC-BID 08/30/16 08/30/16 Previous Rx's Medication Instructions Recorded Furosemide [Lasix] 20 mg PO BID@0900,1600 tab 02/26/16 Ciprofloxacin HCl [Cipro] 500 mg PO Q12HR #28 tablet 08/15/16 Amoxicillin/Potassium Clav 1 tab PO Q12HR #20 tab 09/04/16 [Augmentin 875-125 Tablet] Famotidine [Pepcid] 20 mg PO DAILY #30 tablet 09/04/16 Allergies Allergy/AdvReac Type Severity Reaction Status Date / Time [id number] Reductase AdvReac Unknown Unknown Verified 09/16/16 21:35 Inhibitor Iodinated Contrast Media - AdvReac shakes Verified 09/16/16 21:35 Oral and [Iodinated Contrast Media - IV Dye] Review of Systems ROS Statement: Those systems with pertinent positive or pertinent negative responses have been documented in the HPI. ROS Other: All systems not noted in ROS Statement are negative. Past Medical History Past Medical History: Cancer, Diabetes Mellitus, GERD/Reflux, Hyperlipidemia, Hypertension, Liver Disease, Osteoarthritis (OA), Sleep Apnea/CPAP/BIPAP, Thyroid Disorder Additional Past Medical History / Comment(s): HX jaundice age 11, SKIN CANCER- removal recently on head with open wound , SWELLING of ankles, hx ANEMIA, USES CANE, bradycardia, hiatal hernia, hs ulcer, History of Any Multi-Drug Resistant Organisms: None Reported Past Surgical History: Appendectomy, Cholecystectomy, Hernia Repair, Pacemaker, Tonsillectomy Additional Past Surgical History / Comment(s): lana CATARACTS WITH LENS IMPLANT, SKIN CANCER removed from head x3 Past Anesthesia/Blood Transfusion Reactions: No Reported Reaction Type of Cardiac Device: Permanent Pacemaker Device Placement Date:: 08/2015 Past Psychological History: Anxiety, Depression Additional Psychological History / Comment(s): . Smoking Status: Former smoker Past Alcohol Use History: None Reported Additional Past Alcohol Use History / Comment(s): SMOKED FOR APPROX 19 YEARS. 1PPD. QUIT SMOKING AT AGE 34. Past Drug Use History: None Reported - Past Family History Mother Family Medical History: No Reported History, Cancer Additional Family Medical History / Comment(s): LEUKEMIA Father Additional Family Medical History / Comment(s): WOUNDED IN WW1, MULTIPLE INJURES -LIVED TILL AGE 89 Brother(s) Family Medical History: Cancer General Exam - General Exam Comments Initial Comments: GENERAL: Patient is well-developed and well-nourished. Patient is nontoxic and well- hydrated and is in mild distress. ENT: Neck is soft and supple. No significant lymphadenopathy is noted. Oropharynx is clear. Moist mucous membranes. Neck has full range of motion without eliciting any pain. EYES: The sclera were anicteric and conjunctiva were pink and moist. Extraocular movements were intact and pupils were equal round and reactive to light. Eyelids were unremarkable. PULMONARY: Unlabored respirations. Good breath sounds bilaterally. No audible rales rhonchi or wheezing was noted. CARDIOVASCULAR There is a regular rate and rhythm without any murmurs gallops or rubs. ABDOMEN: Soft and nontender with normal bowel sounds. No palpable organomegaly was noted. There is no palpable pulsatile mass. SKIN: Skin appears pale NEUROLOGIC: Patient is alert and oriented x3. Cranial nerves II through XII are grossly intact. Motor and sensory are also intact. Normal speech, volume and content. Symmetrical smile. MUSCULOSKELETAL: Normal extremities with adequate strength and full range of motion. No lower extremity swelling or edema. No calf tenderness. LYMPHATICS: No significant lymphadenopathy is noted PSYCHIATRIC: Normal psychiatric evaluation. Limitations: no limitations Course Vital Signs 09/16/16 09/17/16 21:30 00:16 Temperature 96.9 F L Pulse Rate 81 78 Respiratory 20 18 Rate Blood Pressure 171/108 147/90 O2 Sat by Pulse 97 97 Oximetry Medical Decision Making - Medical Decision Making EKG shows sinus bradycardia at 80 bpm QRS is 124 QT interval 386 QTC is 445. No definitive P waves are noted. Chest x-ray shows a possible new infiltrate on the lateral film. Because I thought this was pneumonia in the high white count I started the patient Levaquin. Patient also had a high potassium so I gave the patient calcium chloride sodium bicarbonate and D50 Kayexalate and insulin IV. - Lab Data Result diagrams: 09/16/16 22:25 09/16/16 22:45 Lab Results 09/16/16 09/16/16 09/16/16 Range/Units 22:25 22:25 22:25 WBC 18.8 H (3.8-10.6) k/uL RBC 3.39 L (4.30-5.90) m/uL Hgb 10.4 L (13.0-17.5) gm/dL Hct 32.4 L (39.0-53.0) % MCV 95.4 (80.0-100.0) fL MCH 30.7 (25.0-35.0) pg MCHC 32.1 (31.0-37.0) g/dL RDW 13.5 (11.5-15.5) % Plt Count 327 (150-450) k/uL Neutrophils % 88 % Lymphocytes % 5 % Monocytes % 6 % Eosinophils % 0 % Basophils % 0 % Neutrophils # 16.4 H (1.3-7.7) k/uL Lymphocytes # 1.0 (1.0-4.8) k/uL Monocytes # 1.1 H (0-1.0) k/uL Eosinophils # 0.0 (0-0.7) k/uL Basophils # 0.0 (0-0.2) k/uL PT (9.0-12.0) sec INR (<1.1) APTT (22.0-30.0) sec Sodium 129 L (137-145) mmol/L Potassium 6.7 H* (3.5-5.1) mmol/L Chloride 93 L (98-107) mmol/L Carbon Dioxide 21 L (22-30) mmol/L Anion Gap 15 mmol/L BUN 40 H (9-20) mg/dL Creatinine 1.99 H (0.66-1.25) mg/dL Est GFR (MDRD) Af Amer 39 (>60 ml/min/1.73 sqM) Est GFR (MDRD) Non-Af 32 (>60 ml/min/1.73 sqM) Glucose 372 H (74-99) mg/dL Plasma Lactic Acid [place] (0.7-2.0) mmol/L Calcium 9.2 (8.4-10.2) mg/dL Magnesium 2.1 (1.6-2.3) mg/dL Total Bilirubin 2.7 H (0.2-1.3) mg/dL AST 62 H (17-59) U/L ALT 50 (21-72) U/L Alkaline Phosphatase 421 H (38-126) U/L Total Creatine Kinase 37 L (55-170) U/L CK-MB (CK-2) 0.3 (0.0-2.4) ng/mL CK-MB (CK-2) Rel Index 0.8 Troponin I 0.176 H* (0.000-0.034) ng/mL Total Protein 7.5 (6.3-8.2) g/dL Albumin 3.5 (3.5-5.0) g/dL Urine Color Urine Appearance (Clear) Urine pH (5.0-8.0) Ur Specific [place] (1.001-1.035) Urine Protein (Negative) Urine Glucose (UA) (Negative) Urine Ketones (Negative) Urine Blood (Negative) Urine Nitrate (Negative) Urine Bilirubin (Negative) Urine Urobilinogen (<2.0) mg/dL Ur Leukocyte Esterase (Negative) Urine RBC (0-5) /hpf Urine WBC (0-5) /hpf Ur Squamous Epith Cells (0-4) /hpf Urine Bacteria (None) /hpf Hyaline Casts (0-2) /lpf Granular Casts (0) /lpf Urine Mucus (None) /hpf Influenza Type A RNA (Not Detectd) Influenza Type B (PCR) (Not Detectd) 09/16/16 09/16/16 09/16/16 Range/Units 22:25 22:25 22:45 WBC (3.8-10.6) k/uL RBC (4.30-5.90) m/uL Hgb (13.0-17.5) gm/dL Hct (39.0-53.0) % MCV (80.0-100.0) fL MCH (25.0-35.0) pg MCHC (31.0-37.0) g/dL RDW (11.5-15.5) % Plt Count (150-450) k/uL Neutrophils % % Lymphocytes % % Monocytes % % Eosinophils % % Basophils % % Neutrophils # (1.3-7.7) k/uL Lymphocytes # (1.0-4.8) k/uL Monocytes # (0-1.0) k/uL Eosinophils # (0-0.7) k/uL Basophils # (0-0.2) k/uL PT 11.3 (9.0-12.0) sec INR 1.1 (<1.1) APTT 24.7 (22.0-30.0) sec Sodium (137-145) mmol/L Potassium 7.0 H* (3.5-5.1) mmol/L Chloride (98-107) mmol/L Carbon Dioxide (22-30) mmol/L Anion Gap mmol/L BUN (9-20) mg/dL Creatinine (0.66-1.25) mg/dL Est GFR (MDRD) Af Amer (>60 ml/min/1.73 sqM) Est GFR (MDRD) Non-Af (>60 ml/min/1.73 sqM) Glucose (74-99) mg/dL Plasma Lactic Acid [place] 3.1 H* (0.7-2.0) mmol/L Calcium (8.4-10.2) mg/dL Magnesium (1.6-2.3) mg/dL Total Bilirubin (0.2-1.3) mg/dL AST (17-59) U/L ALT (21-72) U/L Alkaline Phosphatase (38-126) U/L Total Creatine Kinase (55-170) U/L CK-MB (CK-2) (0.0-2.4) ng/mL CK-MB (CK-2) Rel Index Troponin I (0.000-0.034) ng/mL Total Protein (6.3-8.2) g/dL Albumin (3.5-5.0) g/dL Urine Color Urine Appearance (Clear) Urine pH (5.0-8.0) Ur Specific [place] (1.001-1.035) Urine Protein (Negative) Urine Glucose (UA) (Negative) Urine Ketones (Negative) Urine Blood (Negative) Urine Nitrate (Negative) Urine Bilirubin (Negative) Urine Urobilinogen (<2.0) mg/dL Ur Leukocyte Esterase (Negative) Urine RBC (0-5) /hpf Urine WBC (0-5) /hpf Ur Squamous Epith Cells (0-4) /hpf Urine Bacteria (None) /hpf Hyaline Casts (0-2) /lpf Granular Casts (0) /lpf Urine Mucus (None) /hpf Influenza Type A RNA (Not Detectd) Influenza Type B (PCR) (Not Detectd) 09/16/16 09/17/16 Range/Units 23:46 00:24 WBC (3.8-10.6) k/uL RBC (4.30-5.90) m/uL Hgb (13.0-17.5) gm/dL Hct (39.0-53.0) % MCV (80.0-100.0) fL MCH (25.0-35.0) pg MCHC (31.0-37.0) g/dL RDW (11.5-15.5) % Plt Count (150-450) k/uL Neutrophils % % Lymphocytes % % Monocytes % % Eosinophils % % Basophils % % Neutrophils # (1.3-7.7) k/uL Lymphocytes # (1.0-4.8) k/uL Monocytes # (0-1.0) k/uL Eosinophils # (0-0.7) k/uL Basophils # (0-0.2) k/uL PT (9.0-12.0) sec INR (<1.1) APTT (22.0-30.0) sec Sodium (137-145) mmol/L Potassium (3.5-5.1) mmol/L Chloride (98-107) mmol/L Carbon Dioxide (22-30) mmol/L Anion Gap mmol/L BUN (9-20) mg/dL Creatinine (0.66-1.25) mg/dL Est GFR (MDRD) Af Amer (>60 ml/min/1.73 sqM) Est GFR (MDRD) Non-Af (>60 ml/min/1.73 sqM) Glucose (74-99) mg/dL Plasma Lactic Acid [place] (0.7-2.0) mmol/L Calcium (8.4-10.2) mg/dL Magnesium (1.6-2.3) mg/dL Total Bilirubin (0.2-1.3) mg/dL AST (17-59) U/L ALT (21-72) U/L Alkaline Phosphatase (38-126) U/L Total Creatine Kinase (55-170) U/L CK-MB (CK-2) (0.0-2.4) ng/mL CK-MB (CK-2) Rel Index Troponin I (0.000-0.034) ng/mL Total Protein (6.3-8.2) g/dL Albumin (3.5-5.0) g/dL Urine Color [place] Urine Appearance Cloudy (Clear) Urine pH 5.0 (5.0-8.0) Ur Specific [place] 1.023 (1.001-1.035) Urine Protein 1+ H (Negative) Urine Glucose (UA) Trace H (Negative) Urine Ketones Negative (Negative) Urine Blood Negative (Negative) Urine Nitrate Negative (Negative) Urine Bilirubin 1+ H (Negative) Urine Urobilinogen 3.0 (<2.0) mg/dL Ur Leukocyte Esterase Negative (Negative) Urine RBC <1 (0-5) /hpf Urine WBC 2 (0-5) /hpf Ur Squamous Epith Cells <1 (0-4) /hpf Urine Bacteria Rare H (None) /hpf Hyaline Casts 7 H (0-2) /lpf Granular Casts 3 (0) /lpf Urine Mucus Rare H (None) /hpf Influenza Type A RNA Not Detected (Not Detectd) Influenza Type B (PCR) Not Detected (Not Detectd) Critical Care Time Critical Care Time: Yes Total Critical Care Time: 35 Disposition Clinical Impression: Pneumonia, Hyperkalemia, Generalized weakness, Acute renal failure, Elevated troponin Disposition: ADMITTED IP TO THIS HOSP Referrals: Lazaro Bailey MD [Primary Care Provider] - 1-2 days Time of Disposition: 00:57
[2016-09-16 22:45] LABS: Potassium 6.7 mmol/L (3.5-5.1)
[2016-09-16] MEDS ORDERED: CALCIUM CHLORIDE 100 MG/ML 10 ML SYRINGE IVP STA (22:52)
[2016-09-16 22:53] LABS: INR 1.1 (<1.1); Partial Thromboplastin Time 24.7 sec (22.0-30.0); Prothrombin Time 11.3 sec (9.0-12.0)
[2016-09-16] MEDS ORDERED: SODIUM CHLORIDE 0.9% 1,000 ML IV ONE (23:18)
[2016-09-16 23:22] LABS: Creatine Kinase MB 0.3 ng/mL (0.0-2.4)
[2016-09-16 23:27] LABS: Troponin I 0.176 ng/mL (0.000-0.034)
--- NOTE | 2016-09-16 23:27 | XR ---
EXAMINATION TYPE: XR chest 2V DATE OF EXAM: 09/16/2016 11:14 PM COMPARISON: 08/30/2016 HISTORY: Weakness TECHNIQUE: Frontal and lateral views of the chest are obtained. FINDINGS: Heart appears enlarged. There is no heart failure. There is a left axillary pacemaker with lead tips in the right ventricle. There are chest leads. There is blunting of left costophrenic angl e on the lateral view. There is probably infiltrate at the left posterior lung base. IMPRESSION: No heart failure. There is evidence of new infiltrate on the lateral view probably in th e posterior basal segment of the left lower lobe compared to old exam. Cardiomegaly.
[2016-09-16] MEDS ORDERED: INSULIN REGULAR 100 UNIT/ML VIAL IV ONE (23:32)
[2016-09-16] MEDS ORDERED: SODIUM BICARB 8.4% 50 ML SYR (1 MEQ/ML) IV STA (23:32)
[2016-09-16] MEDS ORDERED: SODIUM POLYSTYRENE SULFONATE 15 GM/60 ML BOTTLE PO STA (23:33)
[2016-09-16] MEDS ORDERED: DEXTROSE 50%-WATER 50 ML SYRINGE IVP STA (23:33)
[2016-09-17 00:35] LABS: Appearance,Urine Cloudy (Clear); Bacteria,Urine Rare /hpf; Bilirubin,Urine 1+ (Negative); Glucose,Urine (UA) Trace (Negative); Granular Casts,Urine 3 /lpf (0); Ketones,Urine Negative (Negative); Leukocyte Esterase,Urine Negative (Negative); Mucus,Urine Rare /hpf; Nitrite,Urine Negative (Negative); Particle Count 14146; Protein,Urine 1+ (Negative); RBC,Urine <1 /hpf (0-5); Specific Gravity,Urine 1.023 (1.001-1.035); Squamous Epithelial Cell,Urine <1 /hpf (0-4); UA Billing (MACRO vs. MICRO) MICRO; WBC,Urine 2 /hpf (0-5)
[2016-09-17] MEDS ORDERED: LEVOFLOXACIN 750MG-D5W PMX 750 MG in DEXTROSE/WATER 1 150ML.BAG IVPB STA (00:46)
[2016-09-17] MEDS ORDERED: HYDROcodone/APAP 7.5-325MG 1 EACH TAB PO ONE (00:54)
[2016-09-17] MEDS ORDERED: PNEUMONIA PROTOCOL UTILIZED 1 EACH MISC PO PRN (00:58)
[2016-09-17] MEDS ORDERED: HEPARIN SODIUM,PORCINE 5,000 UNIT/ML 1 ML VIAL IV ONE (01:03)
[2016-09-17] MEDS ORDERED: HEPARIN SODIUM,PORCINE/D5W PMX 25,000 UNIT in DEXTROSE/WATER 1 500ML.BAG IV SCH (01:15)
[2016-09-17] MEDS ORDERED: ONDANSETRON 4 MG/2 ML VIAL IVP STA (02:44)
[2016-09-17] MEDS: HEPARIN SODIUM,PORCINE/D5W PMX 25,000 UNIT in DEXTROSE/WATER 1 500ML.BAG IV SCH ×2 (02:54→18:38)
[2016-09-17 03:29] LABS: Glucose,Whole Blood 379 mg/dL (75-99)
[2016-09-17 04:04] VITALS: BMI 32.3
[2016-09-17] MEDS: HYDROcodone/APAP 7.5-325MG 1 EACH TAB PO PRN ×5 (04:19→21:02)
[2016-09-17 05:55] LABS: Basophils % (A) 0 %; CH 29.9; CHCM 31.1; Eosinophils # (A) 0.1 k/uL (0-0.7); Eosinophils % (A) 0 %; HCT 30.6 % (39.0-53.0); HGB 9.5 gm/dL (13.0-17.5); Hypochromasia Slight; Luc # (Auto) 0.23; Luc % (Auto) 1; Lymphocytes # (A) 1.5 k/uL (1.0-4.8); Lymphocytes % (A) 8 %; MCH 29.9 pg (25.0-35.0); MCHC 30.9 g/dL (31.0-37.0); MCV 96.5 fL (80.0-100.0); Mean Platelet Volume 7.3; Monocytes # (A) 1.2 k/uL (0-1.0); Monocytes % (A) 7 %; Neutrophils # (A) 14.6 k/uL (1.3-7.7); Neutrophils % (A) 83 %; RBC 3.17 m/uL (4.30-5.90); RDW 13.5 % (11.5-15.5); WBC 17.6 k/uL (3.8-10.6)
[2016-09-17] MEDS ORDERED: SODIUM POLYSTYRENE SULFONATE 15 GM/60 ML BOTTLE PO SCH (06:00)
[2016-09-17 06:10] LABS: Magnesium 2.1 mg/dL (1.6-2.3); Potassium 5.5 mmol/L (3.5-5.1); Total Bilirubin 2.3 mg/dL (0.2-1.3); Total Protein 6.7 g/dL (6.3-8.2)
[2016-09-17 06:37] LABS: Glucose,Whole Blood 342 mg/dL (75-99)
[2016-09-17] MEDS ORDERED: FLUTICASONE 50MCG/SPRAY NASAL 16GM EA NOSTRIL PRN (06:40)
[2016-09-17] MEDS: SODIUM CHLORIDE 0.9% 1,000 ML IV SCH ×2 (07:08→20:26)
[2016-09-17] MEDS: IPRATROPIUM-ALBUTEROL 3 ML NEB INHALATION SCH ×4 (07:34→21:17)
[2016-09-17] MEDS: LEVOTHYROXINE 75 MCG TAB PO SCH (08:22)
[2016-09-17] MEDS: ASPIRIN 81 MG CHEW PO SCH (08:23)
[2016-09-17] MEDS: FUROSEMIDE 20 MG TAB PO SCH ×2 (08:23→16:57)
[2016-09-17] MEDS: FAMOTIDINE 20 MG TAB PO SCH (08:23)
[2016-09-17] MEDS: GABAPENTIN 300 MG CAP PO SCH ×2 (08:23→20:23)
[2016-09-17] MEDS: LORATADINE 10 MG TAB PO SCH (08:24)
[2016-09-17] MEDS: INSULIN GLARGINE 100 UNIT/ML 10 ML VIAL SQ SCH (08:26)
[2016-09-17] MEDS: INSULIN LISPRO (humaLOG) 300 UNIT/3 ML VIAL SQ SCH ×7 (08:28→21:03)
[2016-09-17 08:29] LABS: Glucose,Whole Blood 315 mg/dL (75-99)
[2016-09-17] MEDS ORDERED: LISINOPRIL 5 MG TAB PO SCH (09:00)
--- NOTE | 2016-09-17 11:29 | CONS ---
DATE OF CONSULTATION: REASON FOR CONSULTATION: Renal failure. HISTORY OF PRESENT ILLNESS: Patient is an 86-year-old white male who was admitted to the hospital with complaints of weakness, not feeling well. He stated that he was at a doctor's office where he had gone for followup after surgery and possibly gallstones. He apparently fell and had near-syncopal episode. He had dizziness. No chest pains or shortness of breath. Patient hurt the front of his scalp above the forehead. He had some cough. Labs shows a serum potassium of 6.7 and then 7.0 and therefore patient was admitted to the ICU. He has received Kayexalate. The potassium is now down to 5.5 mEq/L. Serum creatinine was at 1.9, it is now at 1.8. Patient has had good urine output. He is maintained on IV fluids. There is no history of use of NSAIDs. Patient was on RADHA inhibitors at home. PAST MEDICAL HISTORY: Type 2 diabetes, gastroesophageal reflux disease, hyperlipidemia, hypertension, obstructive sleep apnea, skin cancer, thyroid disorder, which is hypothyroidism, cataracts. PAST SURGICAL HISTORY: Cholecystectomy, appendectomy, hernia repair, pacemaker, tonsillectomy, surgery for skin cancer, surgery for cataracts, pacemaker placement. SOCIAL HISTORY: The patient is an ex-smoker. No history of drug abuse or alcohol abuse. REVIEW OF SYSTEMS: As per HPI. Other systems negative. Medications prior to admission included aspirin, vitamin B12, Zestril, folic acid, Prilosec, fish oil, potassium, Synthroid, Mag-Ox, Flomax, iron, Neurontin, insulin, Lopressor, Ursodiol. Previously, patient had been on Cipro, Lasix, Pepcid. ALLERGIES: IV DYE and STATINS. On examination, the patient is comfortable, awake. He is alert and oriented x3, not in any acute distress. Blood pressure 127/67, heart rate 73 per minute. He is afebrile. EXAMINATION OF THE HEART: S1 and S2. EXAMINATION OF THE LUNGS: Bilateral breath sounds are heard. Decreased breath sounds in the bases. No crackles or wheezing is heard at this time. ABDOMEN: Soft, nontender. Examination of lower extremities shows no significant edema with chronic skin changes are noted. Labs show sodium 131, potassium 5.5, BUN 39, serum creatinine 1.8. Lactic acid 2.3 now down to 1.7. UA shows 1+ protein, trace glucose. ASSESSMENT: 1. Acute kidney injury possibly prerenal. Blood pressure was on the lower side at the time of admission and patient had been on RADHA inhibitors, which I will hold for now. He currently has good urine output. I will continue with the IV fluids. Hold off on the lisinopril. 2. Hyperkalemia associated with acute kidney injury and RADHA inhibitors on board, currently improved, status post Kayexalate. 3. Type 2 diabetes. 4. Rule out chronic kidney disease. Previous creatinine was 1.1 mg/dL on 08/31/2016. UA does have 1+ protein. Etiology is likely diabetic kidney disease. 5. Anemia, rule out iron deficiency. PLAN: ( ) lisinopril. Continue IV fluids. Check iron studies and repeat labs in the a.m. Avoid nephrotoxic agents and continue empiric antibiotics. Thank you for this consultation. Will continue to follow the patient with you during his hospitalization.
[2016-09-17 11:51] LABS: Glucose,Whole Blood 290 mg/dL (75-99)
[2016-09-17 12:02] LABS: % Iron Saturation 14.4 % (20-50)
[2016-09-17] MEDS ORDERED: HEPARIN SODIUM,PORCINE 5,000 UNIT/ML 1 ML VIAL IV STA (12:19)
--- NOTE | 2016-09-17 14:04 | CONS ---
DATE OF CONSULTATION: Mr. Marte is an 86-year-old gentleman who is seen for the cardiac evaluation. This patient's electronic medical records as well as the past history is reviewed. Patient is admitted with the complaint of generalized weakness. Patient gives a history that he was waiting for doctor for 2 hours and subsequently he became more weaker and weaker, has lost his appetite and not been eating anything. The patient was admitted to the hospital with acute renal failure and hyperkalemia. Chest x-ray shows possible some questionable infiltrate, however, clinically, patient does not have any fever, chills or cough with expectoration to suggest any pneumonia. This patient was recently admitted with fever, chills and then underwent an ERCP with extraction of the common bile duct stone. The patient denies any history of chest pain. Denies any history of angina. Patient has a borderline elevation in the troponin which was also present during the previous admission. Please refer to the recent H&P for detail. PAST MEDICAL HISTORY: Patient has a history of a permanent pacemaker. Physical examination at present reveals an 86-year-old gentleman who does not appear to be in any acute distress. The patient is afebrile. Blood pressure is 128/66 mmHg. Head/ENT examination is negative. Neck is supple. There is no increase in jugular venous pressure. Both the carotid pulses are felt. There is no bruit. Chest is symmetrical. HEART: The PMI is not felt. First and second heart sounds are normal. There is no evidence of any murmur. Lungs reveal a few basal crackles. Abdomen is soft. There is no significant tenderness. EXTREMITIES: There is no evidence of any leg edema. EKG shows atrial pacing with ventricular capture. Patient has underlying right bundle branch block pattern. Laboratory test shows initial potassium was ( ) with sodium 129 and creatinine was 1.9. The repeat creatinine is 1.80. Patient continues to have elevated alkaline phosphatase and the ( ) are 0.176 and 0.151. FINAL IMPRESSION: This patient is admitted with generalized weakness. Patient had acute renal failure as well as hyperkalemia. There is a questionable infiltrate on the chest x-ray, but there is no clinical history suggestive of pneumonia. Patient's overall history is not suggestive of acute coronary syndrome. Patient always has a mildly elevated troponin and this could be secondary to supply and demand mismatch because of this hemodynamic abnormality. Medical treatment is recommended.
[2016-09-17 17:03] LABS: Glucose,Whole Blood 194 mg/dL (75-99)
[2016-09-17] MEDS: PANTOPRAZOLE 40 MG TABLET PO SCH (20:23)
[2016-09-17] MEDS: METOPROLOL TARTRATE 25 MG TAB PO SCH (20:23)
[2016-09-17] MEDS: FERROUS SULFATE 325 MG TAB PO SCH (20:23)
[2016-09-17] MEDS: MAGNESIUM OXIDE 400 MG TAB PO SCH (20:24)
[2016-09-17] MEDS: TAMSULOSIN 0.4 MG CAP.ER.24H PO SCH (20:24)
[2016-09-17 21:03] LABS: Glucose,Whole Blood 256 mg/dL (75-99)
--- NOTE | 2016-09-17 22:23 | HP ---
CHIEF COMPLAINT: An 86-year-old white male with generalized weakness cough, congestion, phlegm production. He had recently had stones removed from his gallbladder. He states he was waiting in the GI doctor's office for 2 hours, became weaker and weaker, had some fevers and chills and dizziness, at which time he nearly passed out going home. He has had rigors and chills since being home. He was brought to the hospital, found to have right lower lobe pneumonia, right middle lobe pneumonia and states he has had some nausea. No vomiting or diarrhea, but feels like he has maybe pneumonia. No hemoptysis. No diarrhea. HOME MEDICINES: 1. Aspirin. 2. B12. 3. Folic acid. 4. Zestril. 5. Prilosec. 6. Potassium chloride. 7. Synthroid. 8. Metformin. 9. Fluticasone. 10. Loratadine. 11. Mag oxide. 12. Flomax. 13. Feosol. 14. Neurontin. 15. [place]. 16. NovoLog. 17. Lantus. 18. Lopressor. 19. Marcos. PAST MEDICAL HISTORY: History of skin cancer, diabetes mellitus, GERD, dyslipidemia, hypertension, liver disease, liver stones recently removed with elevated liver enzymes, osteoarthritis, sleep apnea on BiPAP, hypothyroidism, open lesions on his head quarter size x2 due to his skin cancer, history of anemia. He uses a cane. He has a hiatal hernia, severe osteoarthritis, degenerative disc disease. SURGERY: Appendectomy, cholecystectomy, hernia repair, tonsillectomy, pacemaker, biliary stone removal x2, skin cancer removed head x3. He has a permanent pacemaker, has a history of anxiety, depression. SOCIAL HISTORY: He lives alone in a house. Former smoker. No alcohol. No drugs. Ex-smoker for 19 years. 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 PHYSICAL EXAM: ENT: No significant adenopathy. OPHTHALMOLOGIC: Pupils equal, round, react to light and accommodation. Lungs show scattered rhonchi, wheeze. Fairly good air flow. No rales. HEART: Regular rate and rhythm. No murmurs, rubs, or gallops. Abdomen is soft, nontender, distended due to obesity. Skin appears pale. No rashes, excoriations, bruising. NEUROLOGIC: Alert and oriented x3. Pulse is in the 70s to 80s, respiratory rate 18 to 22, blood pressure is 140s to 170s over 90s to 108, O2 97% on room air. EKG shows sinus emma. Hemoglobin is 10.4, white count 18.8. Chest x-ray shows right lower lobe pneumonia. He had hyperkalemia in the ER, was given calcium chloride and sodium bicarbonate, D50, Kayexalate and insulin. Potassium was 7.0 in the ER. Sodium 129, BUN of 40, creatinine 1.99, glucose 300s. Total bili is 2.7, alk phos high at 421. Plasma lactate 3.1. ASSESSMENT: 1. Pneumonia, right middle lobe. 2. Hyperkalemia. 3. Acute on chronic renal failure. 4. Generalized weakness. 5. Acute on chronic renal failure. 6. Elevated troponin. Cardiology, Pulmonology, renal physician all consulted. Prognosis is guarded. Started on IV antibiotics, fluid rehydration, potassium-lowering medications. Please see further orders.
[2016-09-18] MEDS: LEVOFLOXACIN 750MG-D5W PMX 750 MG in DEXTROSE/WATER 1 150ML.BAG IVPB SCH ×2 (00:31→21:54)
[2016-09-18] MEDS: SODIUM CHLORIDE 0.9% 1,000 ML IV SCH ×2 (00:32→12:41)
[2016-09-18] MEDS: HYDROcodone/APAP 7.5-325MG 1 EACH TAB PO PRN ×5 (03:05→20:02)
[2016-09-18 03:14] LABS: Glucose,Whole Blood 165 mg/dL (75-99)
[2016-09-18] MEDS: INSULIN LISPRO (humaLOG) 300 UNIT/3 ML VIAL SQ SCH ×8 (03:14→21:54)
[2016-09-18] MEDS: LEVOTHYROXINE 75 MCG TAB PO SCH (07:03)
[2016-09-18 07:06] LABS: Basophils % (A) 0 %; CH 30.2; CHCM 31.4; Eosinophils % (A) 0 %; HCT 27.8 % (39.0-53.0); HDW 2.26; HGB 8.7 gm/dL (13.0-17.5); Luc # (Auto) 0.23; Luc % (Auto) 2; Lymphocytes # (A) 1.9 k/uL (1.0-4.8); Lymphocytes % (A) 16 %; MCH 30.1 pg (25.0-35.0); MCHC 31.2 g/dL (31.0-37.0); MCV 96.4 fL (80.0-100.0); Mean Platelet Volume 7.2; Monocytes # (A) 1.1 k/uL (0-1.0); Monocytes % (A) 9 %; Neutrophils # (A) 8.5 k/uL (1.3-7.7); Neutrophils % (A) 72 %; RBC 2.88 m/uL (4.30-5.90); RDW 13.7 % (11.5-15.5); WBC 11.8 k/uL (3.8-10.6); WBC (Perox) 12.15
[2016-09-18 07:19] LABS: Calcium 8.4 mg/dL (8.4-10.2); Total Bilirubin 1.5 mg/dL (0.2-1.3); Total Protein 6.2 g/dL (6.3-8.2)
[2016-09-18] MEDS: IPRATROPIUM-ALBUTEROL 3 ML NEB INHALATION SCH ×4 (07:26→20:22)
[2016-09-18] MEDS ORDERED: HEPARIN SODIUM,PORCINE 5,000 UNIT/ML 1 ML VIAL IV STA (07:37)
--- NOTE | 2016-09-18 07:38 | XR ---
EXAMINATION TYPE: XR chest 1V DATE OF EXAM: 09/18/2016 6:32 AM COMPARISON: 09/16/2016 HISTORY: Abnormal x-ray TECHNIQUE: Single frontal view of the chest is obtained. FINDINGS: Cardiac device and cardiomegaly noted with subsegmental changes at both lung bases no pleu ral effusion arthropathy of the shoulders. IMPRESSION: 1. Right basilar atelectasis or infiltrate.
[2016-09-18 08:02] LABS: Glucose,Whole Blood 135 mg/dL (75-99)
[2016-09-18] MEDS: INSULIN GLARGINE 100 UNIT/ML 10 ML VIAL SQ SCH (08:03)
[2016-09-18] MEDS: ASPIRIN 81 MG CHEW PO SCH (08:37)
[2016-09-18] MEDS: FUROSEMIDE 20 MG TAB PO SCH ×2 (08:38→15:26)
[2016-09-18] MEDS: LORATADINE 10 MG TAB PO SCH (08:38)
[2016-09-18] MEDS: FAMOTIDINE 20 MG TAB PO SCH (08:38)
[2016-09-18] MEDS: GABAPENTIN 300 MG CAP PO SCH ×2 (08:38→20:01)
[2016-09-18] MEDS: HEPARIN SODIUM,PORCINE/D5W PMX 25,000 UNIT in DEXTROSE/WATER 1 500ML.BAG IV SCH (10:46)
[2016-09-18 12:02] LABS: Glucose,Whole Blood 202 mg/dL (75-99)
[2016-09-18] MEDS ORDERED: SODIUM CHLORIDE 0.9% 250 ML IV ONE (12:37)
--- NOTE | 2016-09-18 12:49 | PN ---
Patient is seen for followup for acute kidney injury. Patient has been maintained on IV fluids. His renal function has improved with serum creatinine down to 1.6 from 1.9 mg/dL. Urine output; however, remains borderline. Patient is sitting up in a bedside chair. He is comfortable, not in any acute distress. Blood pressure is 104/63, heart rate 90 per minute. He is afebrile. Examination of the heart, S1 and S2. Examination of the lungs, bilateral breath sounds are heard. Decreased breath sounds in the bases. Abdomen is soft, nontender. Examination of the lower extremities shows no significant edema. Labs show sodium 134, potassium 4.0, hemoglobin 8.7 g/dL. ASSESSMENT: 1. Acute kidney injury, acute tubular necrosis, currently nonoliguric with improving renal function. Blood pressure is on the lower side and urine output is low. Will try a fluid bolus. Patient is encouraged to increase oral intake as well. He is maintained on IV fluids. I will; however, decrease the rate to about 50 mL an hour followed by the bolus. 2. Rule out chronic kidney disease. Previous creatinine 1.1 with 1+ protein, possibly secondary to diabetic kidney disease. PLAN: Continue off of RADHA inhibitors, continue IV fluids but decrease rate, try a fluid bolus of 250 mL of normal saline for low urine output.
[2016-09-18 17:32] LABS: Glucose,Whole Blood 227 mg/dL (75-99)
[2016-09-18] MEDS: MAGNESIUM OXIDE 400 MG TAB PO SCH (20:01)
[2016-09-18] MEDS: PANTOPRAZOLE 40 MG TABLET PO SCH (20:01)
[2016-09-18] MEDS: FERROUS SULFATE 325 MG TAB PO SCH (20:01)
[2016-09-18] MEDS: METOPROLOL TARTRATE 25 MG TAB PO SCH (20:01)
[2016-09-18] MEDS: TAMSULOSIN 0.4 MG CAP.ER.24H PO SCH (20:01)
[2016-09-18 21:12] LABS: Glucose,Whole Blood 269 mg/dL (75-99)
[2016-09-19] MEDS: HYDROcodone/APAP 7.5-325MG 1 EACH TAB PO PRN ×7 (00:01→23:58)
[2016-09-19] MEDS: INSULIN LISPRO (humaLOG) 300 UNIT/3 ML VIAL SQ SCH ×8 (04:31→20:44)
[2016-09-19] MEDS: SODIUM CHLORIDE 0.9% 1,000 ML IV SCH ×2 (04:35→18:55)
[2016-09-19 06:31] LABS: Glucose,Whole Blood 200 mg/dL (75-99)
[2016-09-19 06:49] LABS: Basophils % (A) 0 %; CHCM 31.3; Eosinophils # (A) 0.1 k/uL (0-0.7); Eosinophils % (A) 1 %; HGB 8.3 gm/dL (13.0-17.5); Luc # (Auto) 0.17; Luc % (Auto) 2; Lymphocytes # (A) 1.7 k/uL (1.0-4.8); Lymphocytes % (A) 20 %; MCH 29.6 pg (25.0-35.0); MCHC 30.7 g/dL (31.0-37.0); MCV 96.3 fL (80.0-100.0); Mean Platelet Volume 7.7; Monocytes # (A) 0.7 k/uL (0-1.0); Monocytes % (A) 8 %; Neutrophils # (A) 6.1 k/uL (1.3-7.7); Neutrophils % (A) 70 %; RBC 2.81 m/uL (4.30-5.90); RDW 13.8 % (11.5-15.5); WBC 8.8 k/uL (3.8-10.6); WBC (Perox) 9.86
[2016-09-19 07:14] LABS: Calcium 8.1 mg/dL (8.4-10.2); Total Bilirubin 1.2 mg/dL (0.2-1.3)
[2016-09-19] MEDS: LEVOTHYROXINE 75 MCG TAB PO SCH (08:21)
[2016-09-19] MEDS: FUROSEMIDE 20 MG TAB PO SCH ×2 (08:21→16:01)
[2016-09-19] MEDS: LORATADINE 10 MG TAB PO SCH (08:22)
[2016-09-19] MEDS: ASPIRIN 81 MG CHEW PO SCH (08:22)
[2016-09-19] MEDS: FAMOTIDINE 20 MG TAB PO SCH (08:22)
[2016-09-19] MEDS: GABAPENTIN 300 MG CAP PO SCH ×2 (08:22→20:09)
[2016-09-19] MEDS: HEPARIN SODIUM,PORCINE/D5W PMX 25,000 UNIT in DEXTROSE/WATER 1 500ML.BAG IV SCH (08:24)
[2016-09-19] MEDS: INSULIN GLARGINE 100 UNIT/ML 10 ML VIAL SQ SCH (08:27)
[2016-09-19] MEDS ORDERED: HEPARIN SODIUM,PORCINE 5,000 UNIT/ML 1 ML VIAL IV PRN (08:29)
--- NOTE | 2016-09-19 08:45 | PN ---
SUBJECTIVE: This 86-year-old white male admitted for right middle lobe pneumonia and sepsis. He has elevated liver enzymes. I discussed we are ordering an ultrasound of his abdomen tonight with attention to the liver. His creatinine is down to 1.6 from 1.9, improved on his prerenal renal failure, borderline urinary output. He is sitting up in the bedside chair. Blood pressure is one low 100s over 63, heart rate 80s to 90s, afebrile. HEART: S1, S2. LUNGS: Show decreased breath sounds some mild rhonchi in the right middle lobe. ABDOMEN: Soft distended due to obesity. Some mild tenderness right upper quadrant. Maybe 2+ pedal edema bilaterally. Sodium 134, potassium 4.0, hemoglobin 8.7. ASSESSMENT: 1. Acute renal injury. 2. Acute tubular necrosis. 3. Nonoliguric with improved renal function. 4. Right middle lobe pneumonia and sepsis with right middle lobe pneumonia as a cause. 5. Diabetic kidney disease. 6. Diabetes mellitus. PLAN: Continue with antibiotics. He has been taken off RADHA inhibitor. He continues to improve. Expect improvement and a possible discharge home in next couple days.
[2016-09-19] MEDS: IPRATROPIUM-ALBUTEROL 3 ML NEB INHALATION SCH ×4 (09:24→20:52)
--- NOTE | 2016-09-19 09:31 | US ---
EXAMINATION TYPE: US liver DATE OF EXAM: 09/19/2016 8:07 AM COMPARISON: CT abdomen pelvis 12 August 2016 CLINICAL HISTORY: liver enzyme elevation. Cholecystecto my EXAM MEASUREMENTS: Liver Length: 13.9 cm Gallbladder Wall: Surgically absent CBD: 0.6 cm Right Kidney: 12.5 x 5.7 x 4.8 cm Exam is somewhat limited. Pancreas: obscured by overlying bowel content Liver: limited evaluation, left lobe obscured, visualized portions appear heterogeneous Gallbladder: surgically absent CBD: appears wnl Right Kidney: thin renal cortex IMPRESSION: Atrophy involving the left lobe of the liver. Findings suggest underlying hepatocellular disease or possibly fatty infiltration within the liver. Postop changes. Limited exam.
[2016-09-19] MEDS: DOCUSATE 100 MG CAP PO SCH ×2 (10:45→20:09)
[2016-09-19] MEDS: POLYETHYLENE GLYCOL 3350 17 GM POWD.PACK PO SCH (10:45)
[2016-09-19 12:22] LABS: Glucose,Whole Blood 237 mg/dL (75-99)
--- NOTE | 2016-09-19 15:10 | P.PN ---
Subjective 86-year-old male being seen. Patient initial presentation was with generalized weakness decreased endurance. Chest x-ray was obtained patient was found to have right middle lobe pneumonia currently on IV Levaquin it's noted that the patient was just discharged on September 04 patient had undergone on September 01 by GI service an ERCP with an enlargement of sphinceterotomy with extraction of multiple common bile duct stones Objective - Vital Signs Vital signs: Vital Signs Temp 98.2 F 09/19/16 08:16 Pulse 80 09/19/16 12:48 Resp 17 09/19/16 08:16 BP 120/65 09/19/16 08:16 Pulse Ox 95 09/19/16 08:16 Intake & Output 09/18/16 09/19/16 09/19/16 18:59 06:59 18:59 Intake Total 1425.00 500 500 Output Total 450 875 500 Balance 975.00 -375 0 Weight 113.4 kg Intake: IV 925 Sodium Chloride 0.9% 1, 925 000 ml @ 50 mls/hr IV . Q20H ANNIE Rx#:[id number] Intake, IV Titration 500.00 500 Amount Heparin Sodium,Porcine/ 500.00 500 D5w Pmx 25,000 unit In Dextrose/Water 1 500ml. bag @ 9 UNITS/KG/HR 20.08 mls/hr IV .Q24H ANNIE Rx#: [id number] Oral 500 Output: Urine 450 875 500 Other: Voiding Method Urinal Urinal # Voids 1 0 - Exam Physical exam 86-year-old male sitting up in a chair no new events Lungs essentially clear adequate air movement Heart S1-S2 audible and regular Abdomen soft nontender Extremities 2+ pedal edema bilaterally - Labs CBC & Chem 7: 09/19/16 06:20 09/19/16 06:20 Labs: Abnormal Lab Results - Last 24 Hours (Table) 09/18/16 09/18/16 09/19/16 Range/Units 17:26 20:35 06:20 RBC (4.30-5.90) m/uL Hgb (13.0-17.5) gm/dL Hct (39.0-53.0) % MCHC (31.0-37.0) g/dL APTT 44.0 H (22.0-30.0) sec Sodium (137-145) mmol/L BUN (9-20) mg/dL Creatinine (0.66-1.25) mg/dL Glucose (74-99) mg/dL POC Glucose (mg/dL) 227 H 269 H (75-99) mg/dL Calcium (8.4-10.2) mg/dL AST (17-59) U/L ALT (21-72) U/L Alkaline Phosphatase (38-126) U/L Total Protein (6.3-8.2) g/dL Albumin (3.5-5.0) g/dL 09/19/16 09/19/16 09/19/16 Range/Units 06:20 06:20 06:23 RBC 2.81 L (4.30-5.90) m/uL Hgb 8.3 L (13.0-17.5) gm/dL Hct 27.0 L (39.0-53.0) % MCHC 30.7 L (31.0-37.0) g/dL APTT (22.0-30.0) sec Sodium 135 L (137-145) mmol/L BUN 27 H (9-20) mg/dL Creatinine 1.39 H (0.66-1.25) mg/dL Glucose 192 H (74-99) mg/dL POC Glucose (mg/dL) 200 H (75-99) mg/dL Calcium 8.1 L (8.4-10.2) mg/dL AST 112 H (17-59) U/L ALT 83 H (21-72) U/L Alkaline Phosphatase 495 H (38-126) U/L Total Protein 6.0 L (6.3-8.2) g/dL Albumin 2.6 L (3.5-5.0) g/dL 09/19/16 Range/Units 12:18 RBC (4.30-5.90) m/uL Hgb (13.0-17.5) gm/dL Hct (39.0-53.0) % MCHC (31.0-37.0) g/dL APTT (22.0-30.0) sec Sodium (137-145) mmol/L BUN (9-20) mg/dL Creatinine (0.66-1.25) mg/dL Glucose (74-99) mg/dL POC Glucose (mg/dL) 237 H (75-99) mg/dL Calcium (8.4-10.2) mg/dL AST (17-59) U/L ALT (21-72) U/L Alkaline Phosphatase (38-126) U/L Total Protein (6.3-8.2) g/dL Albumin (3.5-5.0) g/dL Microbiology - Last 24 Hours (Table) 09/17/16 01:54 Blood Culture - Preliminary Blood No Growth after 48 hours 09/17/16 01:11 Blood Culture - Preliminary Blood No Growth after 48 hours Assessment and Plan Plan: Impression Present on admission right middle lobe pneumonia with sepsis Type 2 diabetes insulin requiring Esophageal reflex Obstructive sleep apnea with CPAP therapy Osteoarthritis Hypertension Present on admission acute kidney injury with acute tubular necrosis improving Chronic kidney disease not ruled out possibly secondary to diabetic kidney disease Present on admission hyperkalemia resolved Plan Continue current meds Will continue recommendations by nephrology Respiratory treatments as ordered IV antibiotics as ordered Monitor blood sugars continue with the Lantus and Humalog as ordered Further recommendations pending The above dictated assessment and findings were discussed with dr garcia Impression and the plan of care have been dictated as directed. Adore Hightower nurse practitioner acting as a scribe for dr garcia
[2016-09-19] MEDS ORDERED: HYDROcodone/APAP 7.5-325MG 1 EACH TAB PO PRN (15:12)
[2016-09-19 16:56] LABS: Glucose,Whole Blood 191 mg/dL (75-99)
--- NOTE | 2016-09-19 19:21 | PN ---
Patient is seen for followup for acute kidney injury. His renal function has improved, with creatinine going down to 1.39 from 1.9. Patient was hypovolemic. He is currently maintained on IV fluids, although now at about 50 mL/hour. On examination, blood pressure is 141/85, heart rate 86 per minute. He is afebrile. EXAMINATION OF THE HEART: S1 and S2. EXAMINATION OF THE LUNGS: Bilateral breath sounds are heard. Decreased breath sounds in bases. ABDOMEN: Soft, nontender. Examination of lower extremities shows edema 1+ bilaterally. [employer] exam is grossly intact. Labs show sodium 135, potassium 4.0. Hemoglobin 8.3 g/dL. ASSESSMENT: 1. Acute kidney injury, non-oliguric initially; acute tubular necrosis, currently improved. Patient was also hypovolemic. He is maintained on IV fluids, which I will continue for now. 2. Anemia with evidence of iron deficiency, maintained on IV iron. 3. Rule out chronic kidney disease. Previous creatinine 1.1 with 1+ protein on urinalysis, most likely secondary to diabetic kidney disease. 4. Hyperkalemia associated with acute kidney injury and use of RADHA inhibitors at the time of admission, currently improved. PLAN: Continue to hold off on lisinopril for now. Repeat labs in a.m. Patient will need followup as outpatient for possible CKD.
[2016-09-19] MEDS: TAMSULOSIN 0.4 MG CAP.ER.24H PO SCH (20:09)
[2016-09-19] MEDS: FERROUS SULFATE 325 MG TAB PO SCH (20:09)
[2016-09-19] MEDS: MAGNESIUM OXIDE 400 MG TAB PO SCH (20:09)
[2016-09-19] MEDS: METOPROLOL TARTRATE 25 MG TAB PO SCH (20:09)
[2016-09-19 20:49] LABS: Glucose,Whole Blood 223 mg/dL (75-99)
[2016-09-20 02:20] LABS: Glucose,Whole Blood 150 mg/dL (75-99)
[2016-09-20] MEDS: INSULIN LISPRO (humaLOG) 300 UNIT/3 ML VIAL SQ SCH ×8 (02:24→21:26)
[2016-09-20] MEDS: HYDROcodone/APAP 7.5-325MG 1 EACH TAB PO PRN ×5 (04:28→21:25)
[2016-09-20] MEDS: LEVOTHYROXINE 75 MCG TAB PO SCH (06:30)
[2016-09-20 07:13] LABS: Glucose,Whole Blood 144 mg/dL (75-99)
[2016-09-20] MEDS: LORATADINE 10 MG TAB PO SCH (08:02)
[2016-09-20] MEDS: GABAPENTIN 300 MG CAP PO SCH ×2 (08:02→21:26)
[2016-09-20] MEDS: ASPIRIN 81 MG CHEW PO SCH (08:02)
[2016-09-20] MEDS: FUROSEMIDE 20 MG TAB PO SCH ×2 (08:02→17:41)
[2016-09-20] MEDS: DOCUSATE 100 MG CAP PO SCH ×2 (08:03→21:27)
[2016-09-20] MEDS: FAMOTIDINE 20 MG TAB PO SCH (08:03)
[2016-09-20] MEDS: POLYETHYLENE GLYCOL 3350 17 GM POWD.PACK PO SCH (08:03)
[2016-09-20] MEDS: INSULIN GLARGINE 100 UNIT/ML 10 ML VIAL SQ SCH (08:04)
[2016-09-20] MEDS: IPRATROPIUM-ALBUTEROL 3 ML NEB INHALATION SCH ×4 (08:29→19:48)
[2016-09-20] MEDS ORDERED: NON-FORMULARY DRUG (Ubidecarenone [Co Q-10] 200 MG) PO SCH (09:00)
[2016-09-20] MEDS ORDERED: NON-FORMULARY DRUG (Omega-3 Fatty Acids/Fish Oil [Fish Oil 1,000 Mg Softgel] 1 CAP) PO SCH (09:00)
[2016-09-20 12:03] LABS: Glucose,Whole Blood 197 mg/dL (75-99)
[2016-09-20 12:03] LABS: Hemoglobin A1C 8.9 % (4.2-6.1)
[2016-09-20] MEDS: FOLIC ACID 1 MG TAB PO SCH (12:07)
--- NOTE | 2016-09-20 12:07 | P.PN ---
Subjective Patient is seen in follow-up for acute kidney injury. Renal function is improving with creatinine down to 1.39 as of yesterday. Baseline creatinine appears to be in the range of 1.1-1.2. Currently sitting up in chair. Oral intake is improved. Admits to good urine output. No vomiting or diarrhea. Vital signs are stable. General: The patient appeared well nourished and normally developed. HEENT: Head exam is unremarkable. Neck is without jugular venous distension. LUNGS: Lungs are clear to auscultation and percussion. Breath sounds decreased. HEART: Rate and Rhythm are regular. First and second heart sounds normal. No murmurs, rubs or gallops. ABDOMEN: Abdominal exam reveals normal bowel sounds. Non-tender and non- distended. No evidence of peritonitis. EXTREMITITES: 1+ edema. Objective - Vital Signs Vital signs: Vital Signs Temp 97.0 F L 09/20/16 07:00 Pulse 80 09/20/16 08:40 Resp 16 09/20/16 07:00 BP 118/61 09/20/16 07:00 Pulse Ox 92 L 09/20/16 07:00 Intake & Output 09/19/16 09/20/16 09/20/16 18:59 06:59 18:59 Intake Total 500 750 Output Total 500 Balance 0 750 Intake: Oral 500 750 Output: Urine 500 Other: Voiding Method Urinal Urinal # Voids 0 1 - Labs CBC & Chem 7: 09/19/16 06:20 09/19/16 06:20 Labs: Abnormal Lab Results - Last 24 Hours (Table) 09/19/16 09/19/16 09/19/16 Range/Units 12:18 16:52 20:39 POC Glucose (mg/dL) 237 H 191 H 223 H (75-99) mg/dL 09/20/16 09/20/16 Range/Units 02:16 07:11 POC Glucose (mg/dL) 150 H 144 H (75-99) mg/dL Microbiology - Last 24 Hours (Table) 09/17/16 01:54 Blood Culture - Preliminary Blood No Growth after 72 hours 09/17/16 01:11 Blood Culture - Preliminary Blood No Growth after 72 hours Assessment and Plan Plan: Assessment: #1. Nonoliguric acute kidney injury mostly purulent in nature. Improving. Creatinine on the 1.39 as of yesterday. #2. Rule out chronic kidney disease. Urinalysis does reveal 1+ proteinuria which is likely related to diabetic kidney disease. Baseline creatinine near 1.1. #3. Insulin-dependent diabetes mellitus. #4. Anemia with iron deficiency status post IV iron. Plan: Maintain normal saline to run at 50 mL an hour. Can be Hep-Locked tomorrow morning. Encourage oral intake. Avoid nephrotoxic agents and hypotensive episodes. Repeat electrolytes in the morning.
--- NOTE | 2016-09-20 15:13 | P.PN ---
Subjective 86-year-old being seen on rounds with the attending this afternoon currently is sitting up in the chair. Patient's chief complaint this morning has been constipation issues states he has not had a bowel movement in days. Patient's denying any dizziness lightheadedness. Patient states she's tolerating a diet. Patients being followed by nephrology being treated for acute kidney injury with a noted improvement in patient's creatinine Did note the patient has been seen by cardiology's recommendations reviewed. Patients being seen by cardiology at the request of the attending for mildly elevated troponin which could be secondary to supply demand mismatch because of his hemodynamic abnormality. There are indicating they feel this does not show evidence of acute coronary syndrome. Patient's initial presentation to the emergency room generalized weakness acute renal failure with hyperkalemia. Chest x-ray suggests possible infiltrate on the chest x-ray though there is no clinical history to suggest pneumonia cardiology indicates the overall history does not suggest acute coronary syndrome medical management recommended no further cardiac work upon admission the potassium was 6.7. This morning it's for Objective - Vital Signs Vital signs: Vital Signs Temp 97.0 F L 09/20/16 07:00 Pulse 84 09/20/16 12:27 Resp 16 09/20/16 07:00 BP 118/61 09/20/16 07:00 Pulse Ox 92 L 09/20/16 07:00 Intake & Output 09/19/16 09/20/16 09/20/16 18:59 06:59 18:59 Intake Total 500 750 Output Total 500 Balance 0 750 Intake: Oral 500 750 Output: Urine 500 Other: Voiding Method Urinal Urinal # Voids 0 1 - Exam physical exam 86-year-old male sitting up in a chair does appear in any acute distress tolerating a diet Lungs on room air essentially clear with adequate air movement Heart S1-S2 audible and regular Abdomen soft nontender states has not had a bowel movement in greater than a week states making urine no difficulty no reports of nausea vomiting bowel tones present Extremities1+ nonpitting edema noted - Labs CBC & Chem 7: 09/19/16 06:20 09/19/16 06:20 Labs: Abnormal Lab Results - Last 24 Hours (Table) 09/19/16 09/19/16 09/19/16 Range/Units 06:20 16:52 20:39 POC Glucose (mg/dL) 191 H 223 H (75-99) mg/dL Hemoglobin A1c 8.9 H (4.2-6.1) % 09/20/16 09/20/16 09/20/16 Range/Units 02:16 07:11 12:02 POC Glucose (mg/dL) 150 H 144 H 197 H (75-99) mg/dL Hemoglobin A1c (4.2-6.1) % Microbiology - Last 24 Hours (Table) 09/17/16 01:54 Blood Culture - Preliminary Blood No Growth after 72 hours 09/17/16 01:11 Blood Culture - Preliminary Blood No Growth after 72 hours Assessment and Plan Plan: Impression Present on admission leukocytosis hypothermic right middle lobe pneumonia with sepsis Type 2 diabetes insulin requiring Esophageal reflex Obstructive sleep apnea with CPAP therapy Osteoarthritis essentialHypertension Present on admission acute kidney injury with acute tubular necrosis improving Chronic kidney disease not ruled out possibly secondary to diabetic kidney disease Present on admission hyperkalemiapotassium 6.7 resolved present on admission mildly elevated troponin with no evidence of acute coronary syndrome suspect could be due to supply demand mismatch because of hemodynamic abnormality ultrasound of the liver show ectopy involving the left lobe of the liver findings suggest underlying hepatocellular disease possible fatty infiltration within the liver chronic pain opiate dependency Chronic constipation suspect due to opiate dependency Plan soapsuds enema to address the chronic constipation Continue current meds Will continue recommendations by nephrology Respiratory treatments as ordered IV antibiotics as ordered Monitor blood sugars continue with the Lantus and Humalog as ordered Further recommendations pending The above dictated assessment and findings were discussed with dr garcia Impression and the plan of care have been dictated as directed. Adore Hightower nurse practitioner acting as a scribe for dr garcia
[2016-09-20 17:18] LABS: Glucose,Whole Blood 184 mg/dL (75-99)
[2016-09-20] MEDS: SODIUM CHLORIDE 0.9% 1,000 ML IV SCH (17:42)
[2016-09-20] MEDS: NA PHOS,M-B/NA PHOS,DI-BA 133 ML ENEMA RECTAL ONE ×2 (17:42→22:44)
[2016-09-20] MEDS ORDERED: LEVOFLOXACIN 750MG-D5W PMX 750 MG in DEXTROSE/WATER 1 150ML.BAG IVPB SCH (18:00)
[2016-09-20] MEDS ORDERED: LEVOFLOXACIN 750 MG TAB PO SCH (18:00)
[2016-09-20 21:25] LABS: Glucose,Whole Blood 233 mg/dL (75-99)
[2016-09-20] MEDS: FERROUS SULFATE 325 MG TAB PO SCH (21:26)
[2016-09-20] MEDS: METOPROLOL TARTRATE 25 MG TAB PO SCH (21:26)
[2016-09-20] MEDS: TAMSULOSIN 0.4 MG CAP.ER.24H PO SCH (21:26)
[2016-09-20] MEDS: MAGNESIUM OXIDE 400 MG TAB PO SCH (21:26)
[2016-09-21] MEDS: HYDROcodone/APAP 7.5-325MG 1 EACH TAB PO PRN ×4 (01:26→15:17)
[2016-09-21 02:27] LABS: Glucose,Whole Blood 126 mg/dL (75-99)
[2016-09-21] MEDS: INSULIN LISPRO (humaLOG) 300 UNIT/3 ML VIAL SQ SCH ×7 (02:33→18:19)
[2016-09-21] MEDS: LEVOTHYROXINE 75 MCG TAB PO SCH (06:23)
[2016-09-21 06:52] LABS: Glucose,Whole Blood 108 mg/dL (75-99)
[2016-09-21] MEDS: DOCUSATE 100 MG CAP PO SCH (08:45)
[2016-09-21] MEDS: INSULIN GLARGINE 100 UNIT/ML 10 ML VIAL SQ SCH (08:46)
[2016-09-21] MEDS: POLYETHYLENE GLYCOL 3350 17 GM POWD.PACK PO SCH (08:46)
[2016-09-21] MEDS: GABAPENTIN 300 MG CAP PO SCH (08:46)
[2016-09-21] MEDS: ASPIRIN 81 MG CHEW PO SCH (08:46)
[2016-09-21] MEDS: LORATADINE 10 MG TAB PO SCH (08:46)
[2016-09-21] MEDS: FAMOTIDINE 20 MG TAB PO SCH (08:46)
[2016-09-21] MEDS: FUROSEMIDE 20 MG TAB PO SCH ×2 (08:46→17:27)
[2016-09-21] MEDS: IPRATROPIUM-ALBUTEROL 3 ML NEB INHALATION SCH ×3 (08:57→17:00)
[2016-09-21 09:34] LABS: Anion Gap 9 mmol/L; Blood Urea Nitrogen 21 mg/dL (9-20); Calcium 8.6 mg/dL (8.4-10.2); Carbon Dioxide 26 mmol/L (22-30); Chloride 101 mmol/L (98-107); Glucose 161 mg/dL (74-99); Non-African American GFR(MDRD) 55 (>60 ml/min/1.73 sqM); Sodium 136 mmol/L (137-145)
[2016-09-21 09:35] LABS: Potassium 4.3 mmol/L (3.5-5.1)
[2016-09-21 12:07] LABS: Glucose,Whole Blood 217 mg/dL (75-99)
[2016-09-21] MEDS: FOLIC ACID 1 MG TAB PO SCH (13:10)
--- NOTE | 2016-09-21 15:12 | P.DS ---
Providers Date of admission: 09/17/16 00:58 Expected date of discharge: 09/21/16 Attending physician: Lazaro Erazo Consults: 09/17/16 06:44 Consult Physician Urgent Consulting Provider: Halie Navarrete Consult Reason/Comments: Elevated BUN/CR Do you want consulting provider notified?: Yes Primary care physician: [facility] Hospital Course: This is an 86-year-old male who comes in complaining of generalized weakness. Patient states he recently had some stones removed from his liver and he was going to check in for a follow-up on Monday. Patient states he had this about waiting for 2 hours and ever since anything getting weaker and weaker lost his appetite and is not eating anything. Patient denies any fever chills or cough. Patient denies any headache patient denies numbness or focal weakness. Patient denies any lightheadedness dizziness or near syncopal episode. Patient denies chest pain palpitations difficulty breathing [place] of breath. Patient she states she has some mid periumbilical abdominal pain. Patient states had some occasional nausea but no vomiting or diarrhea. Patient denies any recent injury or trauma. Patient had chest x-ray did show right middle lobe pneumonia. Patient initially was started on IV Levaquin. just discharged on September 04 patient had undergone on September 01 by GI service an ERCP with an enlargement of sphinceterotomy with extraction of multiple common bile duct stones patient was followed by nephrology for an acute kidney injury. Over the course of the hospitalization patient continued to make a significant improvement and on the day of discharge was felt to be appropriate to be discharged home. 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 Present on admission hyperkalemiapotassium 6.7 resolved present on admission mildly elevated troponin with no evidence of acute coronary syndrome suspect could be due to supply demand mismatch because of hemodynamic abnormality ultrasound of the liver show ectopy involving the left lobe of the liver findings suggest underlying hepatocellular disease possible fatty infiltration within the liver chronic pain opiate dependency Chronic constipation suspect due to opiate dependency The above dictated assessment and findings were discussed with dr kacey Pandey and the plan of care have been dictated as directed. Adore Hightower nurse practitioner acting as a scribe for dr erazo Plan - Discharge Summary New Discharge Prescriptions: Amoxicillin/Potassium Clav [Augmentin 875-125 Tablet] 1 tab PO Q12HR #20 tab Levofloxacin [Levaquin] 750 mg PO Q48H #7 tab Discharge Medication List Aspirin EC [Ecotrin Low Dose] 81 mg PO DAILY 10/13/14 [History] Cyanocobalamin [Vitamin B-12] 500 mcg PO DAILY 10/13/14 [History] Folic Acid 1 mg PO DAILY 10/13/14 [History] Lisinopril [Zestril] 5 mg PO DAILY 10/13/14 [History] Omeprazole [PriLOSEC] 20 mg PO HS 10/13/14 [History] [place]-3 Fatty Acids/Fish Oil [Fish Oil 1,000 mg Softgel] 1 cap PO DAILY [History] Potassium Chloride ER [K-Dur 20] 20 meq PO DAILY 08/24/15 [History] Levothyroxine Sodium [Synthroid] 75 mcg PO DAILY 02/21/16 [History] metFORMIN HCL 1,000 mg PO DAILY@0900 02/21/16 [History] Furosemide [Lasix] 20 mg PO BID@0900,1600 tab 02/26/16 [Rx] Fluticasone Nasal [place] [Flonase Nasal [place]] 2 spray EA NOSTRIL DAILY PRN 03/25 [History] Loratadine 10 mg PO DAILY 03/25/16 [History] Magnesium Oxide [Mag-Ox] 400 mg PO HS 03/25/16 [History] Tamsulosin [Flomax] 0.4 mg PO HS 03/25/16 [History] Ferrous Sulfate [Feosol] 325 mg PO HS 08/11/16 [History] Gabapentin [Neurontin] 300 mg PO BID 08/11/16 [History] HYDROcodone/APAP 7.5-325MG [[place] 7.5-325] 1 tab PO Q4H PRN 08/11/16 [History] Insulin Aspart [NovoLOG] See Protocol SQ BID 08/11/16 [History] Insulin Glargine [Lantus] 30 unit SQ AC-BRKFST 08/11/16 [History] Metoprolol Tartrate [Lopressor] 25 mg PO HS 08/11/16 [History] Ubidecarenone [Co Q-10] 200 mg PO DAILY 08/11/16 [History] Ciprofloxacin HCl [Cipro] 500 mg PO Q12HR #28 tablet 08/15/16 [Rx] Ursodiol [Marcos] 250 mg PO AC-BID 08/30/16 [History] Famotidine [Pepcid] 20 mg PO DAILY #30 tablet 09/04/16 [Rx] Amoxicillin/Potassium Clav [Augmentin 875-125 Tablet] 1 tab PO Q12HR #20 tab [Rx] Docusate [Colace] 100 mg PO BID cap 09/21/16 [Rx] Levofloxacin [Levaquin] 750 mg PO Q48H #7 tab 09/21/16 [Rx] Polyethylene Glycol 3350 [Miralax] 17 gm PO DAILY powd.pack 09/21/16 [Rx] Follow up Appointment(s)/Referral(s): Lazaro Erazo MD [Primary Care Provider] - 1 Week Patient Instructions/Handouts: Pneumonia (DC) Activity/Diet/Wound Care/Special Instructions: [facility] [phone] Continue wound care to head as previously ordered. Cardiac, diabetic diet.- Diabetic folder given. Discharge Disposition: HOME WITH HOME HEALTH SERVICES
[2016-09-21 15:38] VITALS: BP 142/67; RESP 16; TEMP 97.3
[2016-09-21 17:09] VITALS: PULSE 92
[2016-09-21] MEDS: SODIUM CHLORIDE 0.9% 1,000 ML IV SCH (17:27)
[2016-09-21 17:32] LABS: Glucose,Whole Blood 266 mg/dL (75-99)
--- NOTE | 2016-09-21 17:43 | PN ---
The patient is seen for follow-up for acute kidney injury which was mainly prerenal and improved with IV hydration. Patient has been eating better. He remains on IV fluids at about 50 mL an hour. He has an increase in his lower extremity edema. We will stop the IV fluids. On examination, blood pressure is 142/67, heart rate 87 per minute, examination of the heart S1 and S2. Examination of the lungs: Bilateral breath sounds are heard. ABDOMEN: Obese. Examination of lower extremities shows edema 2+ bilaterally with chronic skin changes. Labs show sodium 136, potassium 4.3, BUN 21, serum creatinine 1.24. ASSESSMENT: 1. Acute kidney injury, prerenal, currently improved with IV hydration. I will discontinue the IV fluids. 2. Possible chronic kidney disease with 1+ protein, most likely secondary to diabetic kidney disease. Baseline creatinine about 1.1. 3. Type 2 diabetes maintained on insulin. 4. Anemia with iron deficiency, status post IV iron. PLAN: Hep-Lock IV fluids. Monitor blood pressure as outpatient and we can likely resume low-dose RADHA inhibitors as outpatient with monitoring of renal function.
== END 2016-09-21 19:08 | disposition home health service (06) | DRG 871 ==
LOC: EC 21:25 → 6ICU 09-17 00:58 → 6SEL 09-18 17:16 → 4MS4W 09-19 14:46
PROVIDERS: ADMIT Family Medicine; ATTEND Family Medicine
DX: A41.9 Sepsis, unspecified organism (principal); N17.0 Acute kidney failure with tubular necrosis; J18.9 Pneumonia, unspecified organism; E11.22 Type 2 diabetes mellitus with diabetic chronic kidney disease; I24.8 Other forms of acute ischemic heart disease; E87.5 Hyperkalemia; E86.1 Hypovolemia; F11.20 Opioid dependence, uncomplicated; E03.9 Hypothyroidism, unspecified; D50.9 Iron deficiency anemia, unspecified; E66.9 Obesity, unspecified; E78.5 Hyperlipidemia, unspecified; G47.33 Obstructive sleep apnea (adult) (pediatric); I12.9 Hypertensive chronic kidney disease with stage 1 through stage 4 chronic kidney disease, or unspecified chronic kidney disease; K21.9 Gastro-esophageal reflux disease without esophagitis; K59.03 Drug induced constipation; T40.605A Adverse effect of unspecified narcotics, initial encounter; M19.90 Unspecified osteoarthritis, unspecified site; N18.9 Chronic kidney disease, unspecified; G89.29 Other chronic pain; Z79.4 Long term (current) use of insulin; Z79.899 Other long term (current) drug therapy; Z85.828 Personal history of other malignant neoplasm of skin; Z87.891 Personal history of nicotine dependence; Z95.0 Presence of cardiac pacemaker; Z79.82 Long term (current) use of aspirin; Z91.041 Radiographic dye allergy status
CPT/HCPCS: 36415; 71010; 71020; 76705; 80048; 80053; 81001; 82550; 82553; 83036; 83540; 83550; 83605; 83735; 84132; 84484; 85025; 85610; 85730; 87040; 87502; 93005; 94640; 94760; 96361; 96366; 96367; 96375; 96376; 99291

== ENCOUNTER 2016-09-24 17:59 | Inpatient (IN) | payer MEDICARE, BC ==
[2016-09-24] MEDS ORDERED: LEVOFLOXACIN 750MG-D5W PMX 750 MG in DEXTROSE/WATER 1 150ML.BAG IVPB STA (18:36)
[2016-09-24] MEDS ORDERED: ALBUTEROL NEBULIZED 2.5 MG/3 ML INHALATION STA (18:36)
[2016-09-24] MEDS ORDERED: PNEUMONIA PROTOCOL UTILIZED 1 EACH MISC PO PRN (18:36)
[2016-09-24] MEDS ORDERED: SODIUM CHLORIDE 0.9% 1,000 ML IV STA (18:36)
[2016-09-24] MEDS ORDERED: PIPERACILLIN-TAZOBACTAM 3.375 GM in DEXTROSE/WATER 1 50ML.BAG IVPB STA (18:36)
[2016-09-24] MEDS ORDERED: IPRATROPIUM 0.5 MG/2.5 ML NEBU INHALATION STA (18:36)
[2016-09-24] MEDS ORDERED: IPRATROPIUM-ALBUTEROL 3 ML NEB INHALATION STA (18:43)
[2016-09-24] MEDS ORDERED: ALBUTEROL NEB (CONC) 2.5 MG/0.5 ML INHALATION STA (18:43)
--- NOTE | 2016-09-24 18:43 | ED ---
General Adult HPI - General Chief complaint: Shortness of Breath Stated complaint: recent Hx pneumonia, still good Time Seen by Provider: 09/24/16 18:18 Source: patient, RN notes reviewed, old records reviewed Mode of arrival: wheelchair Limitations: no limitations - History of Present Illness Initial comments: This is a 86-year-old male here for evaluation of severe shortness of breath. Patient has recently been in patient hospital for shortness of breath and pneumonia. Patient was sent all of the days ago is negative progressively worse. Patient does have history of cancer heart failure COPD and multiple other medical Koerber's. Patient states his exercise activity at home is now coming Get up and do anything herself can't walk secondary to being so short of breath. Denies chest at this time. - Related Data Home Medications Medication Instructions Recorded Confirmed Aspirin EC [Ecotrin Low Dose] 81 mg PO DAILY 10/13/14 09/24/16 Cyanocobalamin [Vitamin B-12] 500 mcg PO DAILY 10/13/14 09/24/16 Folic Acid 1 mg PO DAILY 10/13/14 09/24/16 Lisinopril [Zestril] 5 mg PO DAILY 10/13/14 09/24/16 Omeprazole [PriLOSEC] 20 mg PO HS 10/13/14 09/24/16 [place]-3 Fatty Acids/Fish Oil [Fish 1 cap PO DAILY 08/24/15 09/24/16 Oil 1,000 mg Softgel] Potassium Chloride ER [K-Dur 20] 20 meq PO DAILY 08/24/15 09/24/16 Levothyroxine Sodium [Synthroid] 75 mcg PO DAILY 02/21/16 09/24/16 metFORMIN HCL 1,000 mg PO DAILY@0900 02/21/16 09/24/16 Fluticasone Nasal [place] [Flonase 2 spray EA NOSTRIL DAILY PRN 03/25/16 09/24/16 Nasal [place]] Loratadine 10 mg PO DAILY 03/25/16 09/24/16 Magnesium Oxide [Mag-Ox] 400 mg PO HS 03/25/16 09/24/16 Tamsulosin [Flomax] 0.4 mg PO HS 03/25/16 09/24/16 Ferrous Sulfate [Feosol] 325 mg PO HS 08/11/16 09/24/16 Gabapentin [Neurontin] 300 mg PO BID 08/11/16 09/24/16 HYDROcodone/APAP 7.5-325MG [[place] 1 tab PO Q4H PRN 08/11/16 09/24/16 7.5-325] Insulin Aspart [NovoLOG] See Protocol SQ BID 08/11/16 09/24/16 Insulin Glargine [Lantus] 30 unit SQ AC-BRKFST 08/11/16 09/24/16 Metoprolol Tartrate [Lopressor] 25 mg PO HS 08/11/16 09/24/16 Ubidecarenone [Co Q-10] 200 mg PO DAILY 08/11/16 09/24/16 Ursodiol [Marcos] 250 mg PO AC-BID 08/30/16 09/24/16 Previous Rx's Medication Instructions Recorded Furosemide [Lasix] 20 mg PO BID@0900,1600 tab 02/26/16 Ciprofloxacin HCl [Cipro] 500 mg PO Q12HR #28 tablet 08/15/16 Famotidine [Pepcid] 20 mg PO DAILY #30 tablet 09/04/16 Amoxicillin/Potassium Clav 1 tab PO Q12HR #20 tab 09/21/16 [Augmentin 875-125 Tablet] Docusate [Colace] 100 mg PO BID cap 09/21/16 Levofloxacin [Levaquin] 750 mg PO Q48H #7 tab 09/21/16 Polyethylene Glycol 3350 [Miralax] 17 gm PO DAILY powd.pack 09/21/16 Allergies Allergy/AdvReac Type Severity Reaction Status Date / Time Izwkjam-Xzg-Ijj Reductase AdvReac Unknown Unknown Verified 09/24/16 18:07 Inhibitor Iodinated Contrast Media - AdvReac shakes Verified 09/24/16 18:07 Oral and [Iodinated Contrast Media - IV Dye] Review of Systems ROS Statement: Those systems with pertinent positive or pertinent negative responses have been documented in the HPI. ROS Other: All systems not noted in ROS Statement are negative. Past Medical History Past Medical History: Cancer, Heart Failure, Diabetes Mellitus, GERD/Reflux, Hyperlipidemia, Hypertension, Liver Disease, Osteoarthritis (OA), Sleep Apnea/ CPAP/BIPAP, Thyroid Disorder Additional Past Medical History / Comment(s): HX jaundice age 11, SKIN CANCER- removal recently on head with open wound , SWELLING of ankles, hx ANEMIA, USES CANE, bradycardia, hiatal hernia, hs ulcer, History of Any Multi-Drug Resistant Organisms: None Reported Past Surgical History: Appendectomy, Cholecystectomy, Hernia Repair, Pacemaker, Tonsillectomy Additional Past Surgical History / Comment(s): lana CATARACTS WITH LENS IMPLANT, SKIN CANCER removed from head x3 Past Anesthesia/Blood Transfusion Reactions: No Reported Reaction Type of Cardiac Device: Permanent Pacemaker Device Placement Date:: 08/2015 Past Psychological History: Anxiety, Depression Additional Psychological History / Comment(s): . Smoking Status: Former smoker Past Alcohol Use History: None Reported Additional Past Alcohol Use History / Comment(s): SMOKED FOR APPROX 19 YEARS. 1PPD. QUIT SMOKING AT AGE 34. Past Drug Use History: None Reported - Past Family History Mother Family Medical History: No Reported History, Cancer Additional Family Medical History / Comment(s): LEUKEMIA Father Additional Family Medical History / Comment(s): WOUNDED IN WW1, MULTIPLE INJURES -LIVED TILL AGE 89 Brother(s) Family Medical History: Cancer General Exam Limitations: no limitations General appearance: alert, in no apparent distress, anxious Head exam: Present: atraumatic, normocephalic, normal inspection Eye exam: Present: normal appearance, PERRL, EOMI. Absent: scleral icterus, conjunctival injection, periorbital swelling ENT exam: Present: mucous membranes dry Neck exam: Present: normal inspection. Absent: tenderness, meningismus, lymphadenopathy Respiratory exam: Present: normal lung sounds bilaterally, respiratory distress , wheezes, accessory muscle use. Absent: rales, rhonchi, stridor Cardiovascular Exam: Present: normal rhythm, tachycardia, normal heart sounds. Absent: systolic murmur, diastolic murmur, rubs, gallop, clicks GI/Abdominal exam: Present: soft, normal bowel sounds. Absent: distended, tenderness, guarding, rebound, rigid Extremities exam: Present: normal inspection, full ROM, normal capillary refill. Absent: tenderness, pedal edema, joint swelling, calf tenderness Back exam: Present: normal inspection Neurological exam: Present: alert, oriented X3, CN II-XII intact Psychiatric exam: Present: normal affect, normal mood Skin exam: Present: warm, dry, intact, normal color. Absent: rash Course Vital Signs 09/24/16 18:01 Temperature 97.6 F Pulse Rate 115 H Respiratory 18 Rate Blood Pressure 121/77 O2 Sat by Pulse 96 Oximetry - Reevaluation(s) Reevaluation #1: 09/24/16 18:42 Patient is showing significant improvement after breathing treatment, no hypoxia Medical Decision Making - Medical Decision Making 7 LDR for evaluation of weakness shortness of breath and exercise worse dyspnea. Patient has had significant increasing shortness of breath since he went home from hospital for pneumonia. Patient's to be admitted for IV antibiotics and breathing treatments. - Radiology Data Radiology results: report reviewed (Chest x-ray positive for pneumonia), image reviewed Disposition Clinical Impression: Asthma with exacerbation, Acute exacerbation of chronic obstructive airways disease, Congestive heart failure, Community acquired pneumonia Disposition: ADMITTED IP TO THIS HOSP Condition: Fair
[2016-09-24] MEDS: IPRATROPIUM-ALBUTEROL 3 ML NEB INHALATION SCH (18:49)
[2016-09-24 19:15] LABS: Basophils % (A) 0 %; CH 29.5; Eosinophils # (A) 0.1 k/uL (0-0.7); Eosinophils % (A) 1 %; HCT 30.5 % (39.0-53.0); HDW 2.62; HGB 9.3 gm/dL (13.0-17.5); Hypochromasia Moderate; Luc # (Auto) 0.14; Luc % (Auto) 2; Lymphocytes # (A) 1.2 k/uL (1.0-4.8); Lymphocytes % (A) 13 %; MCH 30.2 pg (25.0-35.0); MCHC 30.5 g/dL (31.0-37.0); Macrocytosis Slight; Mean Platelet Volume 7.1; Monocytes # (A) 0.9 k/uL (0-1.0); Monocytes % (A) 11 %; Neutrophils # (A) 6.3 k/uL (1.3-7.7); Neutrophils % (A) 73 %; RBC 3.08 m/uL (4.30-5.90); RDW 14.3 % (11.5-15.5); WBC 8.7 k/uL (3.8-10.6); WBC (Perox) 9.65
[2016-09-24 19:33] LABS: Creatine Kinase 35 U/L (55-170)
[2016-09-24 19:34] LABS: ALT 33 U/L (21-72); AST 18 U/L (17-59); Alkaline Phosphatase 357 U/L (38-126); Anion Gap 9 mmol/L; Blood Urea Nitrogen 18 mg/dL (9-20); Calcium 8.7 mg/dL (8.4-10.2); Carbon Dioxide 28 mmol/L (22-30); Chloride 101 mmol/L (98-107); Glucose 241 mg/dL (74-99); Magnesium 1.8 mg/dL (1.6-2.3); Non-African American GFR(MDRD) 57 (>60 ml/min/1.73 sqM); Potassium 5.5 mmol/L (3.5-5.1); Sodium 138 mmol/L (137-145); Total Protein 6.5 g/dL (6.3-8.2)
--- NOTE | 2016-09-24 19:41 | XR ---
EXAMINATION TYPE: XR chest 2V DATE OF EXAM: 09/24/2016 7:26 PM COMPARISON: Prior chest x-ray September HISTORY: Difficulty breathing TECHNIQUE: Frontal and lateral views of the chest are obtained. FINDINGS: Blunting of the posterior costophrenic angles is present. The interstitium is increased as is the central vascularity. Prominent lung volumes suggest underlying COPD. Heart remains enlarged. Pacemaker is stable. IMPRESSION: Correlate for pulmonary venous hypertension and interstitial edema, congestive heart sathish lure pleural effusions. Follow-up recommended.
[2016-09-24 19:45] LABS: Creatine Kinase MB 0.6 ng/mL (0.0-2.4); Troponin I <0.012 ng/mL (0.000-0.034)
[2016-09-24 19:47] LABS: INR 1.1 (<1.1); Partial Thromboplastin Time 23.5 sec (22.0-30.0); Prothrombin Time 10.9 sec (9.0-12.0)
[2016-09-24 21:42] LABS: Glucose,Whole Blood 276 mg/dL (75-99)
[2016-09-24] MEDS ORDERED: DOCUSATE 100 MG CAP PO PRN (21:45)
[2016-09-24] MEDS: SODIUM CHLORIDE 0.9% 1,000 ML IV SCH (22:18)
[2016-09-24] MEDS: GABAPENTIN 300 MG CAP PO SCH (22:21)
[2016-09-24] MEDS: HYDROcodone/APAP 7.5-325MG 1 EACH TAB PO PRN (22:21)
[2016-09-24] MEDS: FLUTICASONE 50MCG/SPRAY NASAL 16GM EA NOSTRIL PRN (22:24)
[2016-09-25 00:14] VITALS: BMI 35.2
[2016-09-25] MEDS: HYDROcodone/APAP 7.5-325MG 1 EACH TAB PO PRN ×4 (02:02→21:57)
[2016-09-25] MEDS: LEVOTHYROXINE 75 MCG TAB PO SCH ×2 (05:52→08:41)
[2016-09-25] MEDS: SODIUM CHLORIDE 0.9% 1,000 ML IV SCH ×2 (05:53→18:45)
[2016-09-25 07:43] LABS: Glucose,Whole Blood 148 mg/dL (75-99)
[2016-09-25] MEDS: IPRATROPIUM-ALBUTEROL 3 ML NEB INHALATION SCH ×4 (07:58→19:04)
[2016-09-25] MEDS: URSODIOL 300 MG CAP PO SCH ×2 (08:40→17:21)
[2016-09-25] MEDS: metFORMIN 500 MG TAB PO SCH (08:40)
[2016-09-25] MEDS: FOLIC ACID 1 MG TAB PO SCH (08:41)
[2016-09-25] MEDS: POTASSIUM CHLORIDE ER 20 MEQ TAB.ER PO SCH (08:41)
[2016-09-25] MEDS: LORATADINE 10 MG TAB PO SCH (08:41)
[2016-09-25] MEDS: ASPIRIN 81 MG CHEW PO SCH (08:41)
[2016-09-25] MEDS: LISINOPRIL 5 MG TAB PO SCH (08:41)
[2016-09-25] MEDS: GABAPENTIN 300 MG CAP PO SCH ×2 (08:41→21:49)
[2016-09-25] MEDS: CYANOCOBALAMIN 500 MCG TAB PO SCH (08:41)
[2016-09-25] MEDS: INSULIN LISPRO (humaLOG) 300 UNIT/3 ML VIAL SQ SCH ×4 (08:42→21:50)
[2016-09-25] MEDS: INSULIN GLARGINE 100 UNIT/ML 10 ML VIAL SQ SCH (08:42)
[2016-09-25] MEDS: PIPERACILLIN-TAZOBACTAM 3.375 GM in DEXTROSE/WATER 1 50ML.BAG IVPB SCH ×2 (08:42→17:20)
[2016-09-25] MEDS: POLYETHYLENE GLYCOL 3350 17 GM POWD.PACK PO SCH ×2 (08:42→08:49)
[2016-09-25] MEDS ORDERED: NON-FORMULARY DRUG (Omega-3 Fatty Acids/Fish Oil [Fish Oil 1,000 Mg Softgel] 1 CAP) PO SCH (09:00)
[2016-09-25] MEDS ORDERED: NON-FORMULARY DRUG (Ubidecarenone [Co Q-10] 200 MG) PO SCH (09:00)
[2016-09-25] MEDS ORDERED: FUROSEMIDE 20 MG TAB PO SCH (09:00)
--- NOTE | 2016-09-25 09:53 | P.CRDCN ---
History of Present Illness Consult date: 09/25/16 Chief complaint: shortness of breath History of present illness: this is a pleasant 86-year-old gentleman who sees Dr. Burnette as an outpatient with a past medical history significant for diabetes, hypertension, dyslipidemia , atrial flutter, presented to the hospital because he was not feeling well. Over the last few days he has been more short of breath. He did not experience any symptoms of chest pain or discomfort. Beside that he noticed severe bilateral lower extremities edema. The patient stated that he did not gain weight. He stated that he was compliant with all his medications. The chest x-ray showed findings consistent with CHF and bilateral pleural effusion. The EKG showed atrial flutter with variable block and diffuse nonspecific changes. The blood work showed elevated BNP. The last echocardiogram was performed several months ago and that showed preserved left ventricular systolic function with mild aortic stenosis and without any significant valvular disease. I'm going to start the patient on Lasix IV. Monitor the kidney function and electrolytes. And follow-up with him Past Medical History Past Medical History: Cancer, Heart Failure, Diabetes Mellitus, GERD/Reflux, Hyperlipidemia, Hypertension, Liver Disease, Osteoarthritis (OA), Sleep Apnea/ CPAP/BIPAP, Thyroid Disorder Additional Past Medical History / Comment(s): HX jaundice age 11, SKIN CANCER- removal recently on head with open wound , SWELLING of ankles, hx ANEMIA, USES CANE, bradycardia, hiatal hernia, hs ulcer, History of Any Multi-Drug Resistant Organisms: None Reported Past Surgical History: Appendectomy, Cholecystectomy, Hernia Repair, Pacemaker, Tonsillectomy Additional Past Surgical History / Comment(s): lana CATARACTS WITH LENS IMPLANT, SKIN CANCER removed from head x3 Past Anesthesia/Blood Transfusion Reactions: No Reported Reaction Type of Cardiac Device: Permanent Pacemaker Device Placement Date:: 08/2015 Past Psychological History: Anxiety, Depression Additional Psychological History / Comment(s): . Smoking Status: Never smoker Past Alcohol Use History: None Reported Additional Past Alcohol Use History / Comment(s): SMOKED FOR APPROX 19 YEARS. 1PPD. QUIT SMOKING AT AGE 34. Past Drug Use History: None Reported - Past Family History Mother Family Medical History: No Reported History, Cancer Additional Family Medical History / Comment(s): LEUKEMIA Father Additional Family Medical History / Comment(s): WOUNDED IN WW1, MULTIPLE INJURES -LIVED TILL AGE 89 Brother(s) Family Medical History: Cancer Medications and Allergies Home Medications Medication Instructions Recorded Confirmed Type Aspirin EC [Ecotrin Low Dose] 81 mg PO DAILY 10/13/14 09/24/16 History Cyanocobalamin [Vitamin B-12] 500 mcg PO DAILY 10/13/14 09/24/16 History Folic Acid 1 mg PO DAILY 10/13/14 09/24/16 History Lisinopril [Zestril] 5 mg PO DAILY 10/13/14 09/24/16 History Omeprazole [PriLOSEC] 20 mg PO HS 10/13/14 09/24/16 History [place]-3 Fatty Acids/Fish Oil [Fish 1 cap PO DAILY 08/24/15 09/24/16 History Oil 1,000 mg Softgel] Potassium Chloride ER [K-Dur 20] 20 meq PO DAILY 08/24/15 09/24/16 History Levothyroxine Sodium [Synthroid] 75 mcg PO DAILY 02/21/16 09/24/16 History metFORMIN HCL 1,000 mg PO DAILY@0900 02/21/16 09/24/16 History Fluticasone Nasal [place] [Flonase 2 spray EA NOSTRIL DAILY PRN 03/25/16 09/24/16 History Nasal [place]] Loratadine 10 mg PO DAILY 03/25/16 09/24/16 History Magnesium Oxide [Mag-Ox] 400 mg PO HS 03/25/16 09/24/16 History Tamsulosin [Flomax] 0.4 mg PO HS 03/25/16 09/24/16 History Ferrous Sulfate [Feosol] 325 mg PO HS 08/11/16 09/24/16 History Gabapentin [Neurontin] 300 mg PO BID 08/11/16 09/24/16 History HYDROcodone/APAP 7.5-325MG [[place] 1 tab PO Q4H PRN 08/11/16 09/24/16 History 7.5-325] Insulin Aspart [NovoLOG] See Protocol SQ BID 08/11/16 09/24/16 History Insulin Glargine [Lantus] 30 unit SQ AC-BRKFST 08/11/16 09/24/16 History Metoprolol Tartrate [Lopressor] 25 mg PO HS 08/11/16 09/24/16 History Ubidecarenone [Co Q-10] 200 mg PO DAILY 08/11/16 09/24/16 History Ursodiol [Marcos] 250 mg PO AC-BID 08/30/16 09/24/16 History Docusate [Colace] 100 mg PO BID PRN 09/24/16 09/24/16 History Allergies Allergy/AdvReac Type Severity Reaction Status Date / Time [place]-Kow Reductase AdvReac Unknown Unknown Verified 09/24/16 18:07 Inhibitor Iodinated Contrast Media - AdvReac shakes Verified 09/24/16 18:07 Oral and [Iodinated Contrast Media - IV Dye] Physical Exam Vitals: Vital Signs Temp Pulse Pulse Resp BP BP Pulse Ox 09/25/16 08:08 80 09/25/16 08:00 80 09/24/16 22:00 97.4 F L 88 18 133/60 97 09/24/16 20:19 97.5 F L 84 18 131/62 97 09/24/16 19:21 81 18 134/59 95 09/24/16 18:56 88 09/24/16 18:47 84 Intake and Output 09/24/16 09/25/16 09/25/16 22:59 06:59 14:59 Other: # Voids 1 Weight 118 kg - Constitutional General appearance: no acute distress - Respiratory Respiratory: bilateral: diminished, rales - Cardiovascular Rhythm: regular Heart sounds: normal: S1, S2 Abnormal Heart Sounds: systolic murmur Results 09/24/16 18:45 09/24/16 18:45 Cardiac Enzymes 09/24/16 09/24/16 Range/Units 18:45 18:45 AST 18 (17-59) U/L CK-MB (CK-2) 0.6 (0.0-2.4) ng/mL Troponin I <0.012 (0.000-0.034) ng/mL Coagulation 09/24/16 Range/Units 18:45 PT 10.9 (9.0-12.0) sec APTT 23.5 (22.0-30.0) sec CBC 09/24/16 Range/Units 18:45 WBC 8.7 (3.8-10.6) k/uL RBC 3.08 L (4.30-5.90) m/uL Hgb 9.3 L (13.0-17.5) gm/dL Hct 30.5 L (39.0-53.0) % Plt Count 311 (150-450) k/uL Comprehensive Metabolic Panel 09/24/16 Range/Units 18:45 Sodium 138 (137-145) mmol/L Potassium 5.5 H (3.5-5.1) mmol/L Chloride 101 (98-107) mmol/L Carbon Dioxide 28 (22-30) mmol/L BUN 18 (9-20) mg/dL Creatinine 1.20 (0.66-1.25) mg/dL Glucose 241 H (74-99) mg/dL Calcium 8.7 (8.4-10.2) mg/dL AST 18 (17-59) U/L ALT 33 (21-72) U/L Alkaline Phosphatase 357 H (38-126) U/L Total Protein 6.5 (6.3-8.2) g/dL Albumin 2.9 L (3.5-5.0) g/dL Current Medications Generic Name Dose Route Start Last Admin Trade Name Freq PRN Reason Stop Dose Admin Hydrocodone Bitart/Acetaminophen 1 each 09/24/16 21:45 09/25/16 08:48 [place] 7.5-325 PO 1 each Q4H PRN Administration Pain Albuterol/Ipratropium 3 ml 09/24/16 20:00 09/25/16 07:58 Duoneb 0.5 Mg-3 Mg/3 Ml Soln INHALATION 3 ml RT-QID ANNIE Administration Aspirin 81 mg 09/25/16 09:00 09/25/16 08:41 Aspirin PO 81 mg DAILY ANNIE Administration Cyanocobalamin 500 mcg 09/25/16 09:00 09/25/16 08:41 Vitamin B-12 PO 500 mcg DAILY ANNIE Administration Docusate Sodium 100 mg 09/24/16 21:45 Colace PO BID PRN Constipation Enoxaparin Sodium 40 mg 09/25/16 09:00 Lovenox SQ DAILY [facility] Ferrous Sulfate 325 mg 09/25/16 21:00 Feosol PO HS [facility] Fluticasone Propionate 2 spray 09/24/16 21:45 09/24/16 22:24 Flonase Nasal [place] EA NOSTRIL 2 spray DAILY PRN Administration Allergy Symptoms Folic Acid 1 mg 09/25/16 09:00 09/25/16 08:41 Folic Acid PO 1 mg DAILY ANNIE Administration Furosemide 20 mg 09/25/16 09:00 09/25/16 08:41 Lasix PO 20 mg BID@0900,1600 ANNIE Administration Gabapentin 300 mg 09/24/16 21:45 09/25/16 08:41 Neurontin PO 300 mg BID ANNIE Administration Levofloxacin 750 mg/ IV 150 mls @ 100 mls/hr 09/25/16 18:39 Solution IVPB 10/07/16 18:40 Q24H ANNIE Piperacillin/Tazobactam/ 50 mls @ 12.5 mls/hr 09/25/16 08:00 09/25/16 08:42 Dextrose 3.375 gm/ IV Solution IVPB 10/05/16 08:01 12.5 mls/hr Q8HR ANNIE Administration Sodium Chloride 1,000 mls @ 100 mls/hr 09/24/16 18:45 09/25/16 05:53 Saline 0.9% IV 100 mls/hr .Q10H ANNIE Administration Insulin Glargine 30 unit 09/25/16 07:30 09/25/16 08:42 Lantus SQ 30 unit AC-BRKFST ANNIE Administration Insulin Human Lispro 0 unit 09/25/16 07:30 09/25/16 08:42 Humalog SQ 1 unit ACHS ANNIE Administration Protocol Levothyroxine Sodium 75 mcg 09/25/16 06:30 09/25/16 08:41 Synthroid PO 75 mcg DAILY ANNIE Administration Lisinopril 5 mg 09/25/16 09:00 09/25/16 08:41 Zestril PO 5 mg DAILY ANNIE Administration Loratadine 10 mg 09/25/16 09:00 09/25/16 08:41 Claritin PO 10 mg DAILY ANNIE Administration Magnesium Oxide 400 mg 09/25/16 21:00 Mag-Ox PO HS [facility] Metformin HCl 1,000 mg 09/25/16 09:00 09/25/16 08:40 Glucophage PO 1,000 mg DAILY@0900 ANNIE Administration Metoprolol Succinate 25 mg 09/25/16 21:00 Toprol Xl PO HS [facility] Miscellaneous Information 1 each 09/24/16 18:36 Pneumonia Protocol Utilized PO ONCE PRN Per Protocol Pantoprazole Sodium 40 mg 09/25/16 21:00 Protonix PO HS [facility] Polyethylene Glycol 17 gm 09/25/16 09:00 09/25/16 08:49 Miralax PO 17 gm DAILY ANNIE Administration Potassium Chloride 20 meq 09/25/16 09:00 09/25/16 08:41 K-Dur 20 PO Not Given DAILY ANNIE Tamsulosin HCl 0.4 mg 09/25/16 21:00 Flomax PO HS ANNIE Ursodiol 300 mg 09/25/16 07:30 09/25/16 08:40 Actigall PO 300 mg AC-BID ANNIE Administration Intake and Output 09/24/16 09/25/16 09/25/16 22:59 06:59 14:59 Other: # Voids 1 Weight 118 kg 09/24/16 18:45 09/24/16 18:45 Assessment and Plan Plan: assessment #1 acute respiratory failure #2 congestive heart failure exacerbation secondary to diastole dysfunction #3 mild aortic stenosis by recent echocardiogram #4 atrial flutter with variable block #5 multiple comorbid conditions Plan #1 start the patient on Lasix IV #2 monitor the kidney function and electrolytes #3 he is not a candidate to receive anticoagulation for the atrial flutter #4 follow-up with the patient
[2016-09-25] MEDS: ENOXAPARIN 40 MG/0.4 ML SYRINGE SQ SCH (10:47)
[2016-09-25 11:17] LABS: Basophils % (A) 0 %; CH 29.6; CHCM 30.6; Eosinophils # (A) 0.1 k/uL (0-0.7); Eosinophils % (A) 2 %; HCT 27.5 % (39.0-53.0); HDW 2.62; HGB 8.5 gm/dL (13.0-17.5); Hypochromasia Moderate; Luc # (Auto) 0.14; Luc % (Auto) 2; Lymphocytes # (A) 1.1 k/uL (1.0-4.8); Lymphocytes % (A) 15 %; MCH 30.1 pg (25.0-35.0); MCHC 30.9 g/dL (31.0-37.0); MCV 97.6 fL (80.0-100.0); Monocytes # (A) 0.8 k/uL (0-1.0); Monocytes % (A) 11 %; Neutrophils % (A) 70 %; RBC 2.82 m/uL (4.30-5.90); RDW 14.2 % (11.5-15.5); WBC 7.2 k/uL (3.8-10.6); WBC (Perox) 6.82
--- NOTE | 2016-09-25 11:29 | XR ---
EXAMINATION TYPE: XR chest 2V DATE OF EXAM: 09/25/2016 11:23 AM COMPARISON: Prior chest x-ray 24 September 2016 HISTORY: Pneumonia TECHNIQUE: Frontal and lateral views of the chest are obtained. FINDINGS: Pacemaker is stable with leads in the right atrium and ventricle. Patient is rotated. Ther e is blunting of the costophrenic angles. No evident pneumothorax. Cardiomediastinal silhouette, pulm onary vascularity and emil show a similar appearance. There may be some improvement in the interstiti um. IMPRESSION: There may be some improvement in patient's volume status. Additional follow-up is recomm ended. Basilar effusions and associated atelectasis.
[2016-09-25 11:33] LABS: ALT 26 U/L (21-72); AST 12 U/L (17-59); Alkaline Phosphatase 282 U/L (38-126); Anion Gap 8 mmol/L; Blood Urea Nitrogen 15 mg/dL (9-20); Calcium 8.3 mg/dL (8.4-10.2); Carbon Dioxide 27 mmol/L (22-30); Chloride 102 mmol/L (98-107); Glucose 192 mg/dL (74-99); Non-African American GFR(MDRD) 57 (>60 ml/min/1.73 sqM); Potassium 4.6 mmol/L (3.5-5.1); Sodium 137 mmol/L (137-145); Total Bilirubin 0.8 mg/dL (0.2-1.3); Total Protein 5.6 g/dL (6.3-8.2)
[2016-09-25 11:37] LABS: Glucose,Whole Blood 182 mg/dL (75-99)
[2016-09-25] MEDS ORDERED: SODIUM FERRIC GLUCONAT-SUCROSE 125 MG in SODIUM CHLORIDE 0.9% 100 ML IVPB ONE (11:44)
--- NOTE | 2016-09-25 17:22 | NM ---
EXAMINATION TYPE: NM pul vent and perfuse DATE OF EXAM: 09/25/2016 4:46 PM COMPARISON: Chest x-ray from today HISTORY: Shortness of breath rule out pulmonary embolism TECHNIQUE: Utilizing inhalation of 69.6 mCi Tc 99m DTPA aerosol and intravenous injection of 5.1 mCi of Tc 99m MAA, ventilation and perfusion images are acquired post injection in multiple projections. FINDINGS: Normal radiotracer distribution is noted in the lungs. There is no evidence of mismatched defects. Ce ntral clumping of particles may reflect product of underlying emphysematous change on ventilation geovany ges. Some small matching defects are felt present bilaterally. IMPRESSION: Low probability for pulmonary embolism.
[2016-09-25 17:30] LABS: Glucose,Whole Blood 67 mg/dL (75-99)
--- NOTE | 2016-09-25 17:44 | HP ---
CHIEF COMPLAINT: An 86-year-old white male who was recently diagnosed with pneumonia and discharged home. He states he had exertional dyspnea at home. He could not walk around his house due to PND and orthopnea, at which time he was found to have a BNP in the 3400s and increased swelling in his lower legs with PND and orthopnea, consistent with CHF and pleural effusions. EKG showed atrial flutter with variable block and he was admitted for IV Lasix. Chest x-ray also showed COPD, so we started him on DuoNeb updrafts q.i.d., which he will need to be set up with when he goes home. He has left ventricular diastolic dysfunction, mild aortic stenosis. PAST MEDICAL HISTORY: He has had skin cancer of the head. He is also complaining of some green discharge from the posterior scalp area, heart failure, diabetes mellitus, GERD, dyslipidemia, hypertension, liver disease, osteoarthritis, sleep apnea, hypothyroidism, has a history of anemia, bradycardia, hiatal hernia surgery, appendectomy, cholecystectomy, hernia repair, pacemaker, tonsillectomy, cancer ( ) the head. He has a permanent pacemaker. FAMILY HISTORY: Mother with cancer, leukemia. Father with multiple injuries. Brother with cancer. Home medicines include: 1. Aspirin. 2. Vitamin B12. 3. Folic acid. 4. Zestril. 5. Prilosec. 6. [place]-3 fatty acids. 7. K-Dur 20 mEq daily. 8. Levothyroxine 75 mcg daily. 9. Metformin 1000 daily. 10. Fluticasone nasal spray. 11. Loratadine. 12. Mag oxide. 13. Flomax. 14. Feosol. 15. Neurontin. 16. Insulin and 17. Hydrocodone. 18. Lantus. 19. Lopressor. 20. Urosol. 21. Colace. ALLERGIES ARE TO STATINS, IODINE. PHYSICAL EXAM: Pulse is 80s. Temperature 97.4, blood pressure 130s/90's, O2 at 95% to 97% on room air. CARDIOVASCULAR: S1 and S2, 2 out of 6 systolic ejection murmur. Pulmonary shows rales at the bases. NEUROLOGIC: Alert and oriented x3. PSYCHIATRIC: Fair mood and affect. GI: Soft, nontender. HEMATOLOGIC: Negative Homans'. VASCULAR: Normal dorsalis pedis, posterior tibial. HEMATOLOGIC: 2 to 3+ pedal edema bilaterally. ASSESSMENT: 1. Acute diastolic congestive heart failure. 2. Acute chronic obstructive pulmonary disease exacerbation. 3. Hypertension. 4. Tracheobronchitis. 5. Acute on chronic anemia. 6. Hypothyroidism. 7. Obesity. 8. Skin cancer, wound in the posterior scalp. 9. Cervical radiculopathy. Cultures will be done of the cervical spine. Continue with wound care. Cervical collar of the neck, IV Lasix are ordered. Updrafts with DuoNeb are ordered. Wait for Pulmonary and Cardiology consults. PT, OT will be needed.
[2016-09-25 17:53] LABS: Glucose,Whole Blood 76 mg/dL (75-99)
[2016-09-25] MEDS ORDERED: LEVOFLOXACIN 750MG-D5W PMX 750 MG in DEXTROSE/WATER 1 150ML.BAG IVPB SCH (18:39)
[2016-09-25 19:36] LABS: Glucose,Whole Blood 91 mg/dL (75-99)
[2016-09-25 21:35] LABS: Glucose,Whole Blood 183 mg/dL (75-99)
[2016-09-25] MEDS: FUROSEMIDE 10 MG/ML 4 ML VIAL IV SCH (21:43)
[2016-09-25] MEDS: FERROUS SULFATE 325 MG TAB PO SCH (21:50)
[2016-09-25] MEDS: METOPROLOL SUCCINATE (ER) 25 MG TAB.ER.24H PO SCH (21:50)
[2016-09-25] MEDS: MAGNESIUM OXIDE 400 MG TAB PO SCH (21:50)
[2016-09-25] MEDS: PANTOPRAZOLE 40 MG TABLET PO SCH (21:51)
[2016-09-25] MEDS: TAMSULOSIN 0.4 MG CAP.ER.24H PO SCH (21:51)
[2016-09-26] MEDS: SODIUM CHLORIDE 0.9% 1,000 ML IV SCH ×4 (00:50→14:28)
[2016-09-26] MEDS: HYDROcodone/APAP 7.5-325MG 1 EACH TAB PO PRN ×4 (03:36→21:17)
[2016-09-26] MEDS: IPRATROPIUM-ALBUTEROL 3 ML NEB INHALATION SCH ×4 (07:21→19:21)
[2016-09-26 07:54] LABS: Glucose,Whole Blood 140 mg/dL (75-99)
[2016-09-26] MEDS: INSULIN LISPRO (humaLOG) 300 UNIT/3 ML VIAL SQ SCH ×4 (08:25→21:19)
[2016-09-26] MEDS: INSULIN GLARGINE 100 UNIT/ML 10 ML VIAL SQ SCH (08:25)
[2016-09-26] MEDS: ENOXAPARIN 40 MG/0.4 ML SYRINGE SQ SCH (08:26)
[2016-09-26] MEDS: FUROSEMIDE 10 MG/ML 4 ML VIAL IV SCH ×2 (08:26→21:18)
[2016-09-26] MEDS: LISINOPRIL 5 MG TAB PO SCH (08:27)
[2016-09-26] MEDS: GABAPENTIN 300 MG CAP PO SCH ×2 (08:27→21:17)
[2016-09-26] MEDS: metFORMIN 500 MG TAB PO SCH (08:27)
[2016-09-26] MEDS: URSODIOL 300 MG CAP PO SCH ×2 (08:27→17:49)
[2016-09-26] MEDS: POTASSIUM CHLORIDE ER 20 MEQ TAB.ER PO SCH (08:28)
[2016-09-26] MEDS: FOLIC ACID 1 MG TAB PO SCH (08:28)
[2016-09-26] MEDS: LEVOTHYROXINE 75 MCG TAB PO SCH (08:28)
[2016-09-26] MEDS: ASPIRIN 81 MG CHEW PO SCH (08:28)
[2016-09-26] MEDS: LORATADINE 10 MG TAB PO SCH (08:28)
[2016-09-26] MEDS: CYANOCOBALAMIN 500 MCG TAB PO SCH (08:28)
[2016-09-26] MEDS: POLYETHYLENE GLYCOL 3350 17 GM POWD.PACK PO SCH (08:29)
[2016-09-26] MEDS: FLUTICASONE 50MCG/SPRAY NASAL 16GM EA NOSTRIL PRN (08:29)
[2016-09-26 09:16] LABS: Hemoglobin A1C 8.5 % (4.2-6.1)
[2016-09-26 10:03] LABS: Basophils % (A) 1 %; CH 29.7; CHCM 30.4; Eosinophils # (A) 0.2 k/uL (0-0.7); Eosinophils % (A) 2 %; HCT 30.7 % (39.0-53.0); HDW 2.75; HGB 9.6 gm/dL (13.0-17.5); Hypochromasia Moderate; Luc # (Auto) 0.14; Luc % (Auto) 2; Lymphocytes # (A) 1.4 k/uL (1.0-4.8); Lymphocytes % (A) 21 %; MCH 30.7 pg (25.0-35.0); MCHC 31.3 g/dL (31.0-37.0); MCV 98.2 fL (80.0-100.0); Mean Platelet Volume 7.9; Monocytes # (A) 0.6 k/uL (0-1.0); Monocytes % (A) 8 %; Neutrophils # (A) 4.5 k/uL (1.3-7.7); Neutrophils % (A) 66 %; RBC 3.13 m/uL (4.30-5.90); RDW 14.1 % (11.5-15.5); WBC 6.8 k/uL (3.8-10.6); WBC (Perox) 7.43
[2016-09-26 10:23] LABS: ALT 23 U/L (21-72); AST 15 U/L (17-59); Alkaline Phosphatase 300 U/L (38-126); Anion Gap 11 mmol/L; Blood Urea Nitrogen 14 mg/dL (9-20); Calcium 8.6 mg/dL (8.4-10.2); Carbon Dioxide 24 mmol/L (22-30); Chloride 102 mmol/L (98-107); Glucose 247 mg/dL (74-99); Non-African American GFR(MDRD) 50 (>60 ml/min/1.73 sqM); Potassium 4.7 mmol/L (3.5-5.1); Sodium 137 mmol/L (137-145); Total Bilirubin 0.8 mg/dL (0.2-1.3); Total Protein 6.3 g/dL (6.3-8.2)
[2016-09-26 12:28] LABS: Glucose,Whole Blood 187 mg/dL (75-99)
--- NOTE | 2016-09-26 13:12 | P.PN ---
Subjective Principal diagnosis: CHF this is a pleasant 86-year-old gentleman who sees Dr. Burnette as an outpatient with a past medical history significant for diabetes, hypertension, dyslipidemia , atrial flutter, presented to the hospital because he was not feeling well. Over the last few days he has been more short of breath. He did not experience any symptoms of chest pain or discomfort. Beside that he noticed severe bilateral lower extremities edema. The patient stated that he did not gain weight. He stated that he was compliant with all his medications. The chest x-ray showed findings consistent with CHF and bilateral pleural effusion. The EKG showed atrial flutter with variable block and diffuse nonspecific changes. The blood work showed elevated BNP. The last echocardiogram was performed several months ago and that showed preserved left ventricular systolic function with mild aortic stenosis and without any significant valvular disease. The patient was started on Lasix yesterday. On follow-up with him today, he is feeling better indeterminable shortness of breath. He continues to have severe bilateral lower extremities edema. The kidney function continues to be stable. I am going to continue the current medical treatment with IV Lasix for additional 24-hour and continue monitoring the kidney function and electrolytes and follow-up with the patient. Objective - Vital Signs Vital signs: Vital Signs Temp 97.3 F L 09/26/16 07:00 Pulse 72 09/26/16 11:45 Resp 20 09/26/16 07:00 BP 105/57 09/26/16 07:00 Pulse Ox 94 L 09/26/16 07:00 Intake & Output 09/25/16 09/26/16 09/26/16 18:59 06:59 18:59 Intake Total 1000 900 200 Balance 1000 900 200 Weight 110.5 kg Intake: Intake, IV Titration 750 Amount Piperacillin-Tazobactam 3 50 .375 gm In Dextrose/Water 1 50ml.bag @ 12.5 mls/hr IVPB Q8HR ANNIE Rx#: [id number] Sodium Chloride 0.9% 1, 600 000 ml @ 100 mls/hr IV . Q10H ANNIE Rx#:[id number] Sodium Ferric Gluconat- 100 Sucrose 125 mg In Sodium Chloride 0.9% 100 ml @ 100 mls/hr IVPB ONCE ONE Rx#:[id number] Oral 250 900 200 Other: Voiding Method Toilet # Voids 3 1 - Constitutional General appearance: Present: no acute distress - Respiratory Respiratory: bilateral: rales - Cardiovascular Heart sounds: normal: S1, S2 - Labs CBC & Chem 7: 09/26/16 09:15 09/26/16 09:15 Labs: Abnormal Lab Results - Last 24 Hours (Table) 09/25/16 09/25/16 09/25/16 Range/Units 10:40 17:17 21:33 RBC (4.30-5.90) m/uL Hgb (13.0-17.5) gm/dL Hct (39.0-53.0) % Creatinine (0.66-1.25) mg/dL Glucose (74-99) mg/dL POC Glucose (mg/dL) 67 L 183 H (75-99) mg/dL Hemoglobin A1c 8.5 H (4.2-6.1) % AST (17-59) U/L Alkaline Phosphatase (38-126) U/L Albumin (3.5-5.0) g/dL 09/26/16 09/26/16 09/26/16 Range/Units 07:35 09:15 09:15 RBC 3.13 L (4.30-5.90) m/uL Hgb 9.6 L (13.0-17.5) gm/dL Hct 30.7 L (39.0-53.0) % Creatinine 1.35 H (0.66-1.25) mg/dL Glucose 247 H (74-99) mg/dL POC Glucose (mg/dL) 140 H (75-99) mg/dL Hemoglobin A1c (4.2-6.1) % AST 15 L (17-59) U/L Alkaline Phosphatase 300 H (38-126) U/L Albumin 2.7 L (3.5-5.0) g/dL 09/26/16 Range/Units 12:18 RBC (4.30-5.90) m/uL Hgb (13.0-17.5) gm/dL Hct (39.0-53.0) % Creatinine (0.66-1.25) mg/dL Glucose (74-99) mg/dL POC Glucose (mg/dL) 187 H (75-99) mg/dL Hemoglobin A1c (4.2-6.1) % AST (17-59) U/L Alkaline Phosphatase (38-126) U/L Albumin (3.5-5.0) g/dL Microbiology - Last 24 Hours (Table) 09/25/16 14:00 Gram Stain - Preliminary Head Wound Culture - Preliminary 09/24/16 18:45 Blood Culture - Preliminary Blood No Growth after 24 hours 09/24/16 18:48 Blood Culture - Preliminary Blood No Growth after 24 hours Assessment and Plan Plan: assessment #1 acute respiratory failure #2 congestive heart failure exacerbation secondary to diastole dysfunction #3 mild aortic stenosis by recent echocardiogram #4 atrial flutter with variable block #5 multiple comorbid conditions Plan #1 continue the IV Lasix #2 monitor the kidney function and electrolytes #3 he is not a candidate to receive anticoagulation for the atrial flutter #4 follow-up with the patient
--- NOTE | 2016-09-26 13:27 | P.PN ---
Subjective 86-year-old male sitting up on the edge of the bed. Patient states he is interested in going to subacute rehab. Patients being followed by multiple consulting physicians all recommendations are noted and appreciated and reviewed patient states his breathing feels improved and is less edema to the bilateral lower extremities patient has been on IV Lasix 40 IV every 12 The admission weight was 118 kilograms the weight today is 110 kilograms Patient's initial presentation to the emergency room with a chief complaint of feeling short of breath denied any symptoms of chest pain or discomfort. But he did note when he was at home that he was having increased swelling involving the bilateral lower extremities. Patient stated he did not weigh himself but he did not feel like he had gained any weight. He states she's been compliant with taking his medications as directed. Patient's last echo was performed several months ago and it did show preserved LV ventricular systolic function with mild aortic stenosis without any significant valvular heart disease. Cardiology recommended starting the patient on IV Lasix. On presentation the EKG did show atrial flutter with a variable ventricular block. BNP was elevated as well and the chest x-ray was consistent with evidence of heart failure and bilateral pleural effusions Patients being treated for an acute exacerbation of diastolic dysfunction echocardiogram EF left ventricular systolic function normal with an EF between 60 and 65% echocardiogram done August 2016 Objective - Vital Signs Vital signs: Vital Signs Temp 97.3 F L 09/26/16 07:00 Pulse 72 09/26/16 11:45 Resp 20 09/26/16 07:00 BP 105/57 09/26/16 07:00 Pulse Ox 94 L 09/26/16 07:00 Intake & Output 09/25/16 09/26/16 09/26/16 18:59 06:59 18:59 Intake Total 1000 900 200 Balance 1000 900 200 Weight 110.5 kg Intake: Intake, IV Titration 750 Amount Piperacillin-Tazobactam 3 50 .375 gm In Dextrose/Water 1 50ml.bag @ 12.5 mls/hr IVPB Q8HR ANNIE Rx#: [id number] Sodium Chloride 0.9% 1, 600 000 ml @ 100 mls/hr IV . Q10H ANNIE Rx#:[id number] Sodium Ferric Gluconat- 100 Sucrose 125 mg In Sodium Chloride 0.9% 100 ml @ 100 mls/hr IVPB ONCE ONE Rx#:[id number] Oral 250 900 200 Other: # Voids 3 1 - Exam Physical exam 86-year-old male sitting up in the bed does not appear in any acute distress pleasant cooperative oriented 3 Lungs diminished at the bases otherwise adequate air movement currently on room air no cough noted Heart S1-S2 audible and regular Abdomen obese soft nontender states her frequent stooling no difficulty in urinating Extremities 2+ nonpitting edema to the bilateral lower extremities HEENT there is a dressing to the scalp which is dry - Labs CBC & Chem 7: 09/26/16 09:15 09/26/16 09:15 Labs: Abnormal Lab Results - Last 24 Hours (Table) 09/25/16 09/25/16 09/25/16 Range/Units 10:40 17:17 21:33 RBC (4.30-5.90) m/uL Hgb (13.0-17.5) gm/dL Hct (39.0-53.0) % Creatinine (0.66-1.25) mg/dL Glucose (74-99) mg/dL POC Glucose (mg/dL) 67 L 183 H (75-99) mg/dL Hemoglobin A1c 8.5 H (4.2-6.1) % AST (17-59) U/L Alkaline Phosphatase (38-126) U/L Albumin (3.5-5.0) g/dL 09/26/16 09/26/16 09/26/16 Range/Units 07:35 09:15 09:15 RBC 3.13 L (4.30-5.90) m/uL Hgb 9.6 L (13.0-17.5) gm/dL Hct 30.7 L (39.0-53.0) % Creatinine 1.35 H (0.66-1.25) mg/dL Glucose 247 H (74-99) mg/dL POC Glucose (mg/dL) 140 H (75-99) mg/dL Hemoglobin A1c (4.2-6.1) % AST 15 L (17-59) U/L Alkaline Phosphatase 300 H (38-126) U/L Albumin 2.7 L (3.5-5.0) g/dL 09/26/16 Range/Units 12:18 RBC (4.30-5.90) m/uL Hgb (13.0-17.5) gm/dL Hct (39.0-53.0) % Creatinine (0.66-1.25) mg/dL Glucose (74-99) mg/dL POC Glucose (mg/dL) 187 H (75-99) mg/dL Hemoglobin A1c (4.2-6.1) % AST (17-59) U/L Alkaline Phosphatase (38-126) U/L Albumin (3.5-5.0) g/dL Microbiology - Last 24 Hours (Table) 09/25/16 14:00 Gram Stain - Preliminary Head Wound Culture - Preliminary 09/24/16 18:45 Blood Culture - Preliminary Blood No Growth after 24 hours 09/24/16 18:48 Blood Culture - Preliminary Blood No Growth after 24 hours Assessment and Plan Plan: Impression present on admission shortness of breath edema to the lower extremities likely due to an acute exacerbation decompensated diastolic dysfunction EF 60-65% on echocardiogram August 2016 Chronic atrial flutter rate control Chest x-ray bilateral pleural effusions Obstructive sleep apnea with CPAP therapy Obesity BMI 33 Chronic debility suspect due to deconditioning uses a walker Chronic kidney disease not ruled out possibly secondary to diabetes Type 2 diabetes insulin requiring hemoglobin A1c 8.5 Chronic constipation suspected opiate dependency Chronic pain opiate dependency History of skin cancer with a recent removal from the scalp with an open wound done at [facility] in August 2016 Plan Continue recommendations by cardiology service defer to Continue Lasix IV every 12 monitor electrolytes keep in a therapeutic range Resume home meds as appropriate PT OT eval [employer] Supervisor to evaluate subacute placement patient prefers [facility] as a preference Follow up on the wound culture from the scalp address antibiotics accordingly Further recommendations pending DVT and GI prophylaxis The above dictated assessment and findings were discussed with dr erazo . Impression and the plan of care have been dictated as directed. Adore Hightower nurse practitioner acting as a scribe for dr erazo.
--- NOTE | 2016-09-26 14:32 | CDI ---
In responding to this query, please exercise your independent professional judgment. The [facility] Coding Staff and Clinical Documentation Specialists appreciate your assistance in clarifying documentation, maintaining compliance with coding guidelines, accurately documenting patients condition and capturing severity of illness. The fact that a question is asked does not imply that any particular answer is desired or expected. Communication forms are a method of clarifying documentation and are not made part of the Legal Health Record. Thank you in advance for your clarification. Last Revision, May 2015 Armando Kenyon [address] [facility] [place] [address] Documentation Clarification Form Date: 09/26/2016 2:15:00 PM From: Brittany Rei Admit Date: 09/24/2016 6:40:00 PM Patient Name: Ryne Marte Visit Number: [id number] Discharge Date: Dr. Lazaro Bailey/Adore Hightower [employer] Pneumonia was documented in the past medical history and ER evaluation. History/Risk Factors: Pneumonia, Hypertension Heart failure, Skin cancer, anemia , Former smoker Clinical Indicators: Patient with complaints of shortness of breath with activity. Respiratory exam: Normal lung sounds bilaterally, respiratory distress, wheezes , accessory muscle use. Vital signs: 121/77 115 18 97.6 96 % RA WBC: 8.7 Chest x-ray: per ER: positive for pneumonia Treatment: Zosyn IV (discontinue) Levaquin IV (discontinue) O2 2//L NC (titrate) Bronchodilators oer orders In order to capture the severity of condition, please clarify if the condition signifies and you are treating for: Or was the condition Ruled out? Bacterial Pneumonia, specify causal organism (if known) Gram Negative Pneumonia Due to Strep Due to Staph Due to E. Coli Aspiration Pneumonia, identify if: Due to solids or liquids Other bacteria (specify) Ventilator Associated Pneumonia Healthcare Acquired Pneumonia/Pneumonia, unspecified Unable to determine Link any associated conditions to the pneumonia: Influenza with secondary gram negative pneumonia Sepsis due to pneumonia Acute respiratory failure due to pneumonia Other, please specify Please document in your progress notes and discharge summary in order to capture severity of illness and risk of mortality. Include clinical findings that support your diagnosis. FYI: Press F11 to launch patient chart. Place X here if this finding has no clinical significance, is not applicable or if you are not able to provide any additional documentation. MTDD
[2016-09-26 17:23] LABS: Glucose,Whole Blood 128 mg/dL (75-99)
--- NOTE | 2016-09-26 19:28 | CONS ---
DATE OF CONSULTATION: 09/25/2016 REASON FOR CONSULTATION: Scalp wound. HISTORY OF PRESENT ILLNESS: The patient is an 86-year-old male with previous episodes of liver abscess and ascending cholangitis. 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 Patient now had nonhealing of the wound especially on the posterior side. The patient has been complaining of some dull pain at that site 3 to 4 out of 10 and no radiation. There is no significant drainage from it. The patient denies any high-grade fevers and chills. The patient has been recently admitted to the hospital and treated for possible pneumonia and was just discharged about three days and now has been brought back to the hospital with concern for increasing shortness of breath with minimal exertion and significant swelling of his lower extremity. The patient denies significant chest pain or cough. The patient denies any fever. No abdominal pain. No nausea, vomiting and no diarrhea. REVIEW OF SYSTEMS: CONSTITUTIONAL: Positive for weakness but no high-grade fever. EYES: No complaint. ENT: No complaint. RESPIRATORY: As per HPI. CARDIOVASCULAR: No complaint. GENITOURINARY: No complaint. GASTROINTESTINAL: No complaint. MUSCULOSKELETAL: No complaint. INTEGUMENTARY: As per HPI. PSYCHOLOGIC: No complaint. ENDOCRINE: No complaint. NEUROLOGIC: No complaint. Past medical history is significant for Klebsiella bacteremia and liver abscess, ascending cholangitis, squamous cell carcinoma of the skin, diabetes mellitus, gastroesophageal reflux disease, hypertension, hyperlipidemia, osteoarthritis, obstructive sleep apnea, hypothyroidism and gallstone. PAST SURGICAL HISTORY: Cholecystectomy, ERCP x2, hernia repair, pacemaker placement, tonsillectomy, appendectomy, bilateral cataract extraction with lens implant, liver aspiration and the squamous cell carcinoma of the scalp resection. SOCIAL HISTORY: Remote history of smoking. No drinking or drug use. FAMILY HISTORY: Mother with history of leukemia. ALLERGY TO STATIN AND CONTRAST DYE. Medications currently include the patient is on: 1. [place]os[place]. 2. DuoNeb. 3. Aspirin. 4. Vitamin B12. 5. Colace. 6. Lovenox. 7. Iron sulfate. 8. Flonase. 9. Folic acid. 10. Lasix. 11. Neurontin. 12. Lantus. 13. Humalog. 14. Levofloxacin. 15. Levothyroxine. 16. Zestril. 17. Claritin. 18. Mag oxide. 19. Glucophage. 20. Toprol-XL. 21. Piptazobactam. 22. Miralax. 23. Flomax. 24. Actigall. On examination, blood pressure is 135/67 with pulse of 90, temperature 98.2. He is 95% on 2 liters nasal cannula. General description is an elderly male, lying in bed in no distress. No tachypnea or accessory muscle of respiration use. HEENT examination shows the patient did have lesion on his scalp, posterior wound with no significant slough tissue or surrounding erythema or foul smelling drainage. HEENT examination showed slight pallor. There is no scleral icterus. Oral mucous membrane is dry. NECK: Trachea is central. No thyromegaly. LUNGS: Unlabored breathing. Some decreased breath sounds at the bases. No wheeze. HEART: S1, S2. Regular rate and rhythm. ABDOMEN: Soft. No tenderness. No guarding. No rigidity. EXTREMITIES: No edema of feet. SKIN EXAMINATION: No rash or mass palpable. NEUROLOGICAL: Patient awake, alert, oriented x3. Mood and affect normal. LABS: Hemoglobin 8.5, white count is 7.2, BUN of 15, creatinine 1.20. Electrolytes have been normal. Liver enzymes are normal. Blood and wound cultures have been obtained which are currently pending. The patient did have a pulmonary perfusion imaging which was low probability for PE. The patient also had a chest x-ray with correlate for pulmonary hypertension, interstitial edema, congestive heart failure or pleural effusion. DIAGNOSTIC IMPRESSION AND PLAN: 1. Patient with nonhealing wound to the scalp area after squamous cell carcinoma resection. Currently with no evidence of any secondary cellulitis. Recommend local wound care. 2. Patient admitted to the hospital with difficulty breathing with minimal exertion and significance swelling of the lower extremity underlying congestive heart failure. Clinically doubt pneumonia. PLAN: 1. We will apply Aquacel Silver dressing to his scalp wound. 2. The patient with no evidence of any secondary cellulitis to the wound area and no evidence of any pneumonia. Would recommend discontinuation of the antibiotic therapy. The patient will be watched closely off antibiotics. 3. Management of the underlying congestive heart failure per primary and cardiology team. Thank you for this consultation. We will follow this patient along with you. KIM
[2016-09-26] MEDS: MAGNESIUM OXIDE 400 MG TAB PO SCH (21:17)
[2016-09-26] MEDS: TAMSULOSIN 0.4 MG CAP.ER.24H PO SCH (21:17)
[2016-09-26] MEDS: PANTOPRAZOLE 40 MG TABLET PO SCH (21:17)
[2016-09-26] MEDS: FERROUS SULFATE 325 MG TAB PO SCH (21:17)
[2016-09-26 21:45] LABS: Glucose,Whole Blood 168 mg/dL (75-99)
[2016-09-26] MEDS: METOPROLOL SUCCINATE (ER) 25 MG TAB.ER.24H PO SCH (21:58)
[2016-09-27] MEDS: HYDROcodone/APAP 7.5-325MG 1 EACH TAB PO PRN ×5 (02:03→19:23)
[2016-09-27] MEDS: SODIUM CHLORIDE 0.9% 1,000 ML IV SCH ×2 (06:21→15:37)
[2016-09-27 06:46] LABS: Glucose,Whole Blood 83 mg/dL (75-99)
[2016-09-27] MEDS: IPRATROPIUM-ALBUTEROL 3 ML NEB INHALATION SCH ×4 (07:57→18:55)
[2016-09-27] MEDS: INSULIN GLARGINE 100 UNIT/ML 10 ML VIAL SQ SCH (08:14)
[2016-09-27] MEDS: INSULIN LISPRO (humaLOG) 300 UNIT/3 ML VIAL SQ SCH ×3 (08:16→18:01)
[2016-09-27] MEDS: ASPIRIN 81 MG CHEW PO SCH (08:18)
[2016-09-27] MEDS: POLYETHYLENE GLYCOL 3350 17 GM POWD.PACK PO SCH (08:18)
[2016-09-27] MEDS: ENOXAPARIN 40 MG/0.4 ML SYRINGE SQ SCH (08:18)
[2016-09-27] MEDS: FLUTICASONE 50MCG/SPRAY NASAL 16GM EA NOSTRIL PRN ×2 (08:18→18:03)
[2016-09-27] MEDS: POTASSIUM CHLORIDE ER 20 MEQ TAB.ER PO SCH (08:19)
[2016-09-27] MEDS: GABAPENTIN 300 MG CAP PO SCH (08:19)
[2016-09-27] MEDS: CYANOCOBALAMIN 500 MCG TAB PO SCH (08:19)
[2016-09-27] MEDS: FOLIC ACID 1 MG TAB PO SCH (08:19)
[2016-09-27] MEDS: metFORMIN 500 MG TAB PO SCH (08:19)
[2016-09-27] MEDS: LISINOPRIL 5 MG TAB PO SCH (08:20)
[2016-09-27] MEDS: URSODIOL 300 MG CAP PO SCH ×2 (08:20→18:01)
[2016-09-27] MEDS: FUROSEMIDE 10 MG/ML 4 ML VIAL IV SCH (08:20)
[2016-09-27] MEDS: LORATADINE 10 MG TAB PO SCH (08:20)
[2016-09-27] MEDS: LEVOTHYROXINE 75 MCG TAB PO SCH (08:22)
[2016-09-27 09:19] LABS: Basophils % (A) 1 %; CH 29.8; Eosinophils # (A) 0.2 k/uL (0-0.7); Eosinophils % (A) 3 %; HCT 29.9 % (39.0-53.0); HDW 2.76; HGB 9.2 gm/dL (13.0-17.5); Hypochromasia Moderate; Luc # (Auto) 0.18; Luc % (Auto) 3; Lymphocytes # (A) 2.1 k/uL (1.0-4.8); Lymphocytes % (A) 30 %; MCH 29.6 pg (25.0-35.0); MCHC 30.6 g/dL (31.0-37.0); MCV 96.7 fL (80.0-100.0); Mean Platelet Volume 7.4; Monocytes # (A) 0.4 k/uL (0-1.0); Monocytes % (A) 6 %; Neutrophils # (A) 4.1 k/uL (1.3-7.7); Neutrophils % (A) 59 %; RBC 3.09 m/uL (4.30-5.90); RDW 14.1 % (11.5-15.5); WBC (Perox) 7.49
[2016-09-27 09:29] LABS: Calcium 8.5 mg/dL (8.4-10.2); Potassium 4.8 mmol/L (3.5-5.1); Total Bilirubin 0.8 mg/dL (0.2-1.3); Total Protein 6.3 g/dL (6.3-8.2)
--- NOTE | 2016-09-27 09:46 | XR ---
EXAMINATION TYPE: XR cervical spine comp DATE OF EXAM: 09/27/2016 8:44 AM COMPARISON: NONE HISTORY: 86-year-old male with neck pain TECHNIQUE: 6 views FINDINGS: There is rightward tilt of the neck. Limited obliquity for assessment of the right-sided neuroforamen . On the left, there is mild bony spondylotic neural foraminal narrowing at C3-C4 C5-C6, and C6-C7. There is moderate multilevel disc/endplate degenerative change especially in the mid to lower cervica l spine. No predental space widening or prevertebral soft tissue swelling. There is normal alignment as seen on the lateral and swimmer's views. IMPRESSION: 1. Rightward tilt of the neck could be positional or due to muscle spasm. 2. No malalignment. 3. Mild to moderate multilevel spondylotic changes especially in the mid to lower cervical spine. 4. Limited assessment of the right-sided neuroforamen due to obliquity. There is variable mild narrow ing of the left-sided neuroforamen especially from C3 through C7 levels.
[2016-09-27 11:04] LABS: Hemoglobin A1C 8.5 % (4.2-6.1)
--- NOTE | 2016-09-27 12:06 | PN ---
DATE OF SERVICE: 09/26/2016 Reason for follow-up is scalp wound. INTERVAL HISTORY: The patient is afebrile. He denies any worsening pain to his scalp wound area. Patient denies having any chest pain, worsening shortness of breath, cough and no abdominal pain or any diarrhea. Still has shortness of breath and lower extremity swelling. On examination, blood pressure is 120/56 with a pulse of 71, temperature 97.8. He is 99% on 2-L nasal cannula. General description is an elderly male, lying in bed in no distress. HEENT EXAMINATION: Scalp wound x2 with no active cellulitis. LUNGS: Unlabored breathing. Some decrease breath sounds in the base. HEART: S1, S2. Regular rate and rhythm. ABDOMEN: Soft, no tenderness. EXTREMITIES: 2+ edema of feet. LABS: Hemoglobin is 9.6, white count 6.8, BUN of 14, creatinine 1.35, blood cultures so far are negative. DIAGNOSTIC IMPRESSION AND PLAN: Patient with scalp wound x2 for squamous cell carcinoma currently without evidence of any active cellulitis. Recommend local wound care with Aquacel Silver dressing. No need for any systemic antibiotic therapy. Will continue to monitor him closely.
[2016-09-27 12:37] LABS: Glucose,Whole Blood 124 mg/dL (75-99)
--- NOTE | 2016-09-27 13:22 | P.DS ---
Providers Date of admission: 09/24/16 18:40 Expected date of discharge: 09/27/16 Attending physician: Lazaro Erazo Consults: 09/24/16 18:43 Consult Physician Routine Consulting Provider: Campbell Esquivel Consult Reason/Comments: chf Do you want consulting provider notified?: Yes 09/25/16 11:42 Consult Physician Routine Consulting Provider: Sunitha Walters Consult Reason/Comments: wound on head Do you want consulting provider notified?: Yes Primary care physician: [facility] Course: Patient's initial presentation to the emergency room with a chief complaint of feeling short of breath with increase edema to the bilateral lower extremity denied any symptoms of chest pain or discomfort. But he did note when he was at home that he was having increased swelling involving the bilateral lower extremities. Patient stated he did not weigh himself but he did not feel like he had gained any weight. Patient's weight on September 24 118 kg after starting IV Lasix the weight was down to 110.5 kg on September 26 He states he's been compliant with taking his medications as directed. Patient's last echo was performed several months ago and it did show preserved LV ventricular systolic function with mild aortic stenosis without any significant valvular heart disease. Cardiology recommended starting the patient on IV Lasix. On presentation the EKG did show atrial flutter with a variable ventricular block. BNP was elevated as well and the chest x-ray was consistent with evidence of heart failure and bilateral pleural effusions the chest x-ray on admission and a repeat x-ray showed no evidence of pneumonia showed mild effusions with atelectasis It's noted that the patient was just discharged on September 21 returning to the emergency room on the with the above-mentioned symptoms Patients being treated for an acute exacerbation of diastolic dysfunction echocardiogram EF left ventricular systolic function normal with an EF between 60 and 65% echocardiogram done August 2016 Additionally patient underwent a VQ scan showed low probability for pulmonary emboli the symptoms significantly improved with decrease edema to the lower extremities pulse ox sat on room air was 96% patient remained afebrile Additionally patient reportedly was experiencing neck pain. Did have a x-ray involving the cervical spine limited assessment but it did show mild to moderate multilevel spondylotic changes especially in the mid to lower cervical spine. Suggestive of moderate multilevel disc and endplate degenerative changes especially in the mid to lower cervical spine PT OT eval was obtained patient was felt to be appropriate candidate for subacute rehab [facility] first preference patient choice Impression discharge diagnosis Present on admission shortness of breath with the chest x-ray on admission and a repeat x-ray on September 25 showing no evidence of pneumonia showing associated atelectasis present on admission shortness of breath bilateral edema to the lower extremities likely due to an acute exacerbation decompensated diastolic dysfunction EF 60-65% on echocardiogram August 2016 Chronic atrial flutter rate control Chest x-ray mild bilateral pleural effusions with atelectasis Obstructive sleep apnea with CPAP therapy Obesity BMI 33 Chronic debility suspect due to deconditioning uses a walker Chronic kidney disease not ruled out possibly secondary to diabetes Type 2 diabetes insulin requiring hemoglobin A1c 8.5 Chronic constipation suspected opiate dependency Chronic pain opiate dependency History of skin cancer with a recent removal from the scalp with an open wound done at [facility] in August 2016 Anemia of chronic illness Acute renal failure creatinine 1.4 suspect due to IV diuretics A recent admission September 21 hospitalized and treated for right middle lobe pneumonia with sepsis had not completed antibiotic course was discharged at that time on Augmentin and Levaquin Chronic neck pain likely due to 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 Adore Hightower nurse practitioner acting as a scribe for dr erazo Patient Condition at Discharge: Fair Plan - Discharge Summary New Discharge Prescriptions: HYDROcodone/APAP 7.5-325MG [[place] 7.5-325] 1 each PO Q4H PRN #30 tab PRN Reason: Pain Ipratropium-Albuterol Nebulize [Duoneb 0.5 mg-3 mg/3 ml Soln] 3 ml INHALATION RT -QID #120 ampul.neb Discharge Medication List Aspirin EC [Ecotrin Low Dose] 81 mg PO DAILY 10/13/14 [History] Cyanocobalamin [Vitamin B-12] 500 mcg PO DAILY 10/13/14 [History] Folic Acid 1 mg PO DAILY 10/13/14 [History] Lisinopril [Zestril] 5 mg PO DAILY 10/13/14 [History] Omeprazole [PriLOSEC] 20 mg PO HS 10/13/14 [History] [place]-3 Fatty Acids/Fish Oil [Fish Oil 1,000 mg Softgel] 1 cap PO DAILY [History] Potassium Chloride ER [K-Dur 20] 20 meq PO DAILY 08/24/15 [History] Levothyroxine Sodium [Synthroid] 75 mcg PO DAILY 02/21/16 [History] metFORMIN HCL 1,000 mg PO DAILY@0900 02/21/16 [History] Furosemide [Lasix] 20 mg PO BID@0900,1600 tab 02/26/16 [Rx] Fluticasone Nasal [place] [Flonase Nasal [place]] 2 spray EA NOSTRIL DAILY PRN 03/25 [History] Loratadine 10 mg PO DAILY 03/25/16 [History] Magnesium Oxide [Mag-Ox] 400 mg PO HS 03/25/16 [History] Tamsulosin [Flomax] 0.4 mg PO HS 03/25/16 [History] Ferrous Sulfate [Feosol] 325 mg PO HS 08/11/16 [History] Gabapentin [Neurontin] 300 mg PO BID 08/11/16 [History] HYDROcodone/APAP 7.5-325MG [[place] 7.5-325] 1 tab PO Q4H PRN 08/11/16 [History] Insulin Aspart [NovoLOG] See Protocol SQ BID 08/11/16 [History] Insulin Glargine [Lantus] 30 unit SQ AC-BRKFST 08/11/16 [History] Metoprolol Tartrate [Lopressor] 25 mg PO HS 08/11/16 [History] Ubidecarenone [Co Q-10] 200 mg PO DAILY 08/11/16 [History] Ursodiol [Marcos] 250 mg PO AC-BID 08/30/16 [History] Amoxicillin/Potassium Clav [Augmentin 875-125 Tablet] 1 tab PO Q12HR #20 tab [Rx] Levofloxacin [Levaquin] 750 mg PO Q48H #7 tab 09/21/16 [Rx] Polyethylene Glycol 3350 [Miralax] 17 gm PO DAILY powd.pack 09/21/16 [Rx] Docusate [Colace] 100 mg PO BID PRN 09/24/16 [History] HYDROcodone/APAP 7.5-325MG [[place] 7.5-325] 1 each PO Q4H PRN #30 tab 09/27/16 [ Rx] Ipratropium-Albuterol Nebulize [Duoneb 0.5 mg-3 mg/3 ml Soln] 3 ml INHALATION RT -QID #120 ampul.neb 09/27/16 [Rx] Follow up Appointment(s)/Referral(s): Lazaro Erazo MD [Primary Care Provider] - 1-2 days Sunitha Walters MD [STAFF PHYSICIAN] - 1 Week Activity/Diet/Wound Care/Special Instructions: Aquace silver dressing to the scalp area change every 48 hoursl Discharge Disposition: TRANSFER TO SNF/ECF
--- NOTE | 2016-09-27 14:54 | CDI ---
In responding to this query, please exercise your independent professional judgment. The [facility] Coding Staff and Clinical Documentation Specialists appreciate your assistance in clarifying documentation, maintaining compliance with coding guidelines, accurately documenting patients condition and capturing severity of illness. The fact that a question is asked does not imply that any particular answer is desired or expected. Communication forms are a method of clarifying documentation and are not made part of the Legal Health Record. Thank you in advance for your clarification. Last Revision, May 2015 Armando Kenyon [address] [facility] [place] [address] Documentation Clarification Form Date: 09/27/2016 1:50:00 PM From: Brittany Rei Admit Date: 09/24/2016 6:40:00 PM Patient Name: Ryne Marte Visit Number: [id number] Discharge Date: Dr. Lazaro Bailey/Adore Hightower [employer]; History/Risk Factors: Heart Failure, Diabetes Mellitus, Hypertension, Skin cancer, Former smoker Admission: BUN18 CR 1.20 GFR 57 09/27/16 BUN 12, CR 1.44 GFR 46 Clinical Indicators: Recent admission for shortness or breath and pneumonia. He present with increasing shortness of breath since he went home. Mucous membranes dry. Current diagnosis of diastolic congestive heart failure, being treated with IV Lasix. Vital signs: 121/77 115 18 97.6 Treatment: Monitor Labs In order to capture the severity of condition, please clarify if the condition signifies: CKD Stage 1 (GFR > 90) CKD Stage 2 (GFR 60-89) CKD Stage 3 (GFR 30-59) CKD Stage 4 (GFR 15-29) CKD Stage 5 (GFR <15) ESRD Unable to determine Other condition, please specify Please document in your progress notes and discharge summary in order to capture severity of illness and risk of mortality. Include clinical findings that support your diagnosis. FYI: Press F11 to launch patient chart. Place X here if this finding has no clinical significance, is not applicable or if you are not able to provide any additional documentation. KIM
--- NOTE | 2016-09-27 15:17 | PN ---
Mr. Marte is an 86-year-old male who presented with symptoms of progressive dyspnea and worsening peripheral edema. He had history of atrial flutter in the past. He is feeling slightly better today. He denies any chest pain. He thinks his breathing is better. He denies any dizziness, palpitation. He denies any nausea. He has been maintained on aspirin 81 mg daily, Lovenox subcu, furosemide 40 mg IV q.12 hours, lisinopril 5 mg daily, metoprolol succinate 25 mg daily, metformin. PHYSICAL EXAMINATION: Blood pressure 117/60 with a heart in the 70s. LUNGS: With crackles at both bases and rales. HEART: Irregularly irregular. S1, S2, no S3, with systolic murmur. ABDOMEN: Soft, nontender. EXTREMITIES: With 2+ edema. Lab data revealed a BUN and creatinine of 12 and 1.44. Potassium 4.8. Hemoglobin of 9.2. IMPRESSION: 1. Evidence of congestive heart failure with fluid overload. The patient remains quite fluid overloaded at this point. 2. Atrial flutter not anticoagulated because of prior of falls. 3. Diastolic dysfunction heart failure. RECOMMENDATIONS: From the cardiac standpoint, I will continue on the anticoagulation. I will increase the dose of his Lasix. Follow his renal function closely and depending on his progress, further recommendation will be made.
[2016-09-27 15:43] VITALS: BP 139/59; RESP 16; TEMP 96
[2016-09-27 16:59] LABS: Glucose,Whole Blood 134 mg/dL (75-99)
--- NOTE | 2016-09-27 17:11 | PN ---
DATE OF SERVICE: 09/27/2016 Reason for follow-up: Scalp wound times two. INTERVAL HISTORY: The patient is afebrile. Has been breathing comfortably. Denies significant pain to the scalp wound area. The patient denies having any chest pain or cough. Breathing has improved. No abdominal pain or any diarrhea. On examination, blood pressure is 109/62 with a pulse of 72, temperature 96.6. He is 93% on room air. General description is an elderly male, up in the chair in no distress. Head examination did show the wounds x2 currently with no evidence of any surrounding erythema or any drainage. LUNGS: Unlabored breathing. Clear to auscultation anteriorly. HEART: S1, S2. Regular rate and rhythm. Extremities 2+ edema of feet. LABS: Hemoglobin 9.1, white count 10.0 with a BUN 12, creatinine of 1.44. DIAGNOSTIC IMPRESSION AND PLAN: Patient with scalp wound x2 after a biopsy. The patient seems to have shown overall clinical improvement. There is no evidence of any cellulitis. Recommend local wound care with Aquacel silver and follow-up in the outpatient in about a week.
[2016-09-27 19:29] VITALS: PULSE 69
== END 2016-09-27 19:47 | DRG 291 ==
LOC: EC 17:59 → 4MS4W 18:40
PROVIDERS: ADMIT Family Medicine; ATTEND Family Medicine
DX: I13.0 Hypertensive heart and chronic kidney disease with heart failure and stage 1 through stage 4 chronic kidney disease, or unspecified chronic kidney disease (principal); J96.00 Acute respiratory failure, unspecified whether with hypoxia or hypercapnia; I48.92 Unspecified atrial flutter; E11.21 Type 2 diabetes mellitus with diabetic nephropathy; J44.1 Chronic obstructive pulmonary disease with (acute) exacerbation; F11.20 Opioid dependence, uncomplicated; I50.31 Acute diastolic (congestive) heart failure; J98.11 Atelectasis; N18.2 Chronic kidney disease, stage 2 (mild); Z79.4 Long term (current) use of insulin; Z79.84 Long term (current) use of oral hypoglycemic drugs; I35.0 Nonrheumatic aortic (valve) stenosis; G89.29 Other chronic pain; K21.9 Gastro-esophageal reflux disease without esophagitis; M54.12 Radiculopathy, cervical region; Z68.33 Body mass index [BMI] 33.0-33.9, adult; G47.33 Obstructive sleep apnea (adult) (pediatric); E78.5 Hyperlipidemia, unspecified; E66.9 Obesity, unspecified; E03.9 Hypothyroidism, unspecified; D63.8 Anemia in other chronic diseases classified elsewhere; Z85.828 Personal history of other malignant neoplasm of skin; Z79.82 Long term (current) use of aspirin; Z79.899 Other long term (current) drug therapy; Z80.6 Family history of leukemia; Z87.01 Personal history of pneumonia (recurrent); Z87.891 Personal history of nicotine dependence; Z95.0 Presence of cardiac pacemaker; M19.90 Unspecified osteoarthritis, unspecified site; Z80.9 Family history of malignant neoplasm, unspecified; K76.9 Liver disease, unspecified; K59.03 Drug induced constipation
CPT/HCPCS: 36415; 71020; 72050; 78582; 80053; 82550; 82553; 83036; 83605; 83735; 83880; 84484; 85025; 85379; 85610; 85730; 87040; 87070; 87205; 93005; 94640; 94760; 96365; 99285

== ENCOUNTER 2016-11-04 14:09 | Inpatient (IN) | payer MEDICARE, BC ==
[2016-11-04] MEDS ORDERED: FLUTICASONE 50MCG/SPRAY NASAL 16GM EA NOSTRIL PRN (16:48)
[2016-11-04 17:06] LABS: Glucose,Whole Blood 186 mg/dL (75-99)
[2016-11-04] MEDS: HYDROcodone/APAP 7.5-325MG 1 EACH TAB PO SCH ×2 (17:33→22:28)
[2016-11-04] MEDS: FERROUS SULFATE 325 MG TAB PO SCH (17:36)
[2016-11-04] MEDS: FOLIC ACID 1 MG TAB PO SCH (17:36)
[2016-11-04] MEDS: POTASSIUM CHLORIDE ER 20 MEQ TAB.ER PO SCH (17:37)
[2016-11-04] MEDS: MAGNESIUM OXIDE 400 MG TAB PO SCH (17:37)
[2016-11-04] MEDS: FUROSEMIDE 40 MG TAB PO SCH (17:37)
[2016-11-04 17:42] LABS: Basophils # (A) 0.1 k/uL (0-0.2); Basophils % (A) 1 %; CHCM 31.6; Eosinophils # (A) 0.3 k/uL (0-0.7); Eosinophils % (A) 2 %; HCT 33.3 % (39.0-53.0); HGB 10.4 gm/dL (13.0-17.5); Luc # (Auto) 0.15; Luc % (Auto) 1; Lymphocytes # (A) 1.8 k/uL (1.0-4.8); Lymphocytes % (A) 16 %; MCH 28.8 pg (25.0-35.0); MCHC 31.3 g/dL (31.0-37.0); MCV 92.1 fL (80.0-100.0); Mean Platelet Volume 6.5; Monocytes # (A) 0.7 k/uL (0-1.0); Monocytes % (A) 6 %; Neutrophils # (A) 8.5 k/uL (1.3-7.7); Neutrophils % (A) 74 %; RBC 3.61 m/uL (4.30-5.90); RDW 13.9 % (11.5-15.5); WBC 11.5 k/uL (3.8-10.6); WBC (Perox) 12.31
[2016-11-04] MEDS: SODIUM CHLORIDE 0.9% 1,000 ML IV SCH (18:43)
--- NOTE | 2016-11-04 19:27 | P.CONS ---
History of Present Illness - Reason for Consult Consult date: 11/04/16 concerns for colangiocarcinoma Requesting physician: Lazaro Bailey - Chief Complaint Abdominal discomfort - History of Present Illness Patient is a very pleasant 86-year-old male patient of Dr. Lazaro Bailey who states that for about the last 6 months he's been having some trouble with his stomach. He states that he has had several stones removed with stent revision. Patient states that he does have stomachaches which cause him some difficulty with eating, he will occasionally get sick and noticed that it is more bile, patient denies any hematemesis. Patient denies any fevers, night sweats, any swellings in his neck or armpits, he has had 2 skin cancer removals off of his scalp, he cannot remember what type of cancer was. Patient denies any painful swallowing, shortness of breath or cough. Patient's stomach is okay right now, he is tolerating small amounts of clear liquids. Patient denies any dark urine or difficulty with urination, no mucus or bloody diarrhea. Patient does tire easily when he is active and is feeling weaker over time. Review of Systems All systems: negative Constitutional: Reports as per HPI Past Medical History Past Medical History: Cancer, Heart Failure, Diabetes Mellitus, GERD/Reflux, Hyperlipidemia, Hypertension, Liver Disease, Osteoarthritis (OA), Sleep Apnea/ CPAP/BIPAP, Thyroid Disorder Additional Past Medical History / Comment(s): HX jaundice age 11, SKIN CANCER- removal recently on head with open wound , SWELLING of ankles, hx ANEMIA, USES CANE, bradycardia, hiatal hernia, hs ulcer, History of Any Multi-Drug Resistant Organisms: None Reported Past Surgical History: Appendectomy, Cholecystectomy, Hernia Repair, Pacemaker, Tonsillectomy Additional Past Surgical History / Comment(s): lana CATARACTS WITH LENS IMPLANT, SKIN CANCER removed from head x3 Past Anesthesia/Blood Transfusion Reactions: No Reported Reaction Type of Cardiac Device: Permanent Pacemaker Device Placement Date:: 08/2015 Past Psychological History: Anxiety, Depression Additional Psychological History / Comment(s): . Smoking Status: Former smoker Past Alcohol Use History: None Reported Additional Past Alcohol Use History / Comment(s): SMOKED FOR APPROX 19 YEARS. 1PPD. QUIT SMOKING AT AGE 34. Past Drug Use History: None Reported - Past Family History Mother Family Medical History: No Reported History, Cancer Additional Family Medical History / Comment(s): LEUKEMIA Father Additional Family Medical History / Comment(s): WOUNDED IN WW1, MULTIPLE INJURES -LIVED TILL AGE 89 Brother(s) Family Medical History: Cancer Medications and Allergies Home Medications Medication Instructions Recorded Confirmed Type Aspirin EC [Ecotrin Low Dose] 81 mg PO AC-SUPPER 10/13/14 11/04/16 History Folic Acid 1 mg PO AC-SUPPER 10/13/14 11/04/16 History Lisinopril [Zestril] 5 mg PO DAILY 10/13/14 11/04/16 History Omeprazole [PriLOSEC] 20 mg PO HS 10/13/14 11/04/16 History [place]-3 Fatty Acids/Fish Oil [Fish 1 cap PO AC-SUPPER 08/24/15 11/04/16 History Oil 1,000 mg Softgel] Potassium Chloride ER [K-Dur 20] 20 meq PO AC-SUPPER 08/24/15 11/04/16 History Levothyroxine Sodium [Synthroid] 75 mcg PO DAILY 02/21/16 11/04/16 History metFORMIN HCL 1,000 mg PO QAM 02/21/16 11/04/16 History Fluticasone Nasal [place] [Flonase 2 spray EA NOSTRIL HS PRN 03/25/16 11/04/16 History Nasal [place]] Magnesium Oxide [Mag-Ox] 400 mg PO AC-SUPPER 03/25/16 11/04/16 History Tamsulosin [Flomax] 0.4 mg PO HS 03/25/16 11/04/16 History Gabapentin [Neurontin] 300 mg PO BID 08/11/16 11/04/16 History HYDROcodone/APAP 7.5-325MG [[place] 1 tab PO Q4H 08/11/16 11/04/16 History 7.5-325] Insulin Glargine [Lantus] 26 unit SQ QAM 08/11/16 11/04/16 History Metoprolol Tartrate [Lopressor] 25 mg PO HS 08/11/16 11/04/16 History Ursodiol [Marcos] 250 mg PO AC-BID 08/30/16 11/04/16 History Budesonide [Pulmicort] 0.5 mg INHALATION RT-BID 11/04/16 11/04/16 History Cyanocobalamin [Vitamin B-12 1,000 mcg SQ QMONTH 11/04/16 11/04/16 History Injection] FLUoxetine HCL [PROzac] 10 mg PO DAILY 11/04/16 11/04/16 History Ferrous Sulfate [Feosol] 325 mg PO AC-SUPPER 11/04/16 11/04/16 History Furosemide [Lasix] 40 mg PO AC-BID 11/04/16 11/04/16 History Metolazone [Zaroxolyn] 2.5 mg PO QAM 11/04/16 11/04/16 History Ubidecarenone [Co Q-10] 200 mg PO AC-SUPPER 11/04/16 11/04/16 History Allergies Allergy/AdvReac Type Severity Reaction Status Date / Time Uiphpoc-Fpp-Hcx Reductase AdvReac Unknown Unknown Verified 09/24/16 18:07 Inhibitor Iodinated Contrast Media - AdvReac shakes Verified 09/24/16 18:07 Oral and [Iodinated Contrast Media - IV Dye] Physical Exam Vitals: Vital Signs Temp Pulse Resp BP Pulse Ox 11/04/16 16:00 81 20 11/04/16 14:59 97.1 F L 81 20 118/56 94 L Intake and Output 11/04/16 11/04/16 11/04/16 06:59 14:59 22:59 Other: Voiding Method Bedside Commode Incontinent Weight 102.27 kg 102.27 kg Patient Weight 11/05/16 06:59 Weight 102.27 kg - Constitutional General appearance: average body habitus, cooperative, no acute distress - EENT Eyes: anicteric sclerae, normal appearance ENT: normal oropharynx - Neck Neck: no lymphadenopathy - Respiratory Respiratory: left: rales - Cardiovascular Heart sounds: normal: S1, S2 - Gastrointestinal General gastrointestinal: no absent bowel sounds, no decreased bowel sounds, no distended, no hepatomegaly, no hyperactive bowel sounds, normal bowel sounds, no organomegaly, no rigid, no scaphoid, soft, no splenomegaly, no tenderness, no umbilical hernia, no ventral hernia - Integumentary Integumentary: pale - Neurologic Neurologic: CNII-XII intact - Musculoskeletal Musculoskeletal: generalized weakness, strength equal bilaterally - Psychiatric Psychiatric: A&O x's 3, appropriate affect, intact judgment & insight Results CBC & Chem 7: 11/04/16 16:56 Labs: Abnormal Lab Results - Last 24 Hours (Table) 11/04/16 11/04/16 Range/Units 16:56 17:00 WBC 11.5 H (3.8-10.6) k/uL RBC 3.61 L (4.30-5.90) m/uL Hgb 10.4 L (13.0-17.5) gm/dL Hct 33.3 L (39.0-53.0) % Neutrophils # 8.5 H (1.3-7.7) k/uL POC Glucose (mg/dL) 186 H (75-99) mg/dL CT scan - abdomen: report reviewed CT scan - chest: report reviewed Assessment and Plan (1) Liver mass Narrative/Plan: Previous imaging results as well as reports regarding the patient's admission history for about the last 6 months was reviewed. MRI with gadolinium has been requested for evaluation of the liver. Further recommendations to follow Status: Chronic (2) Lung nodules Narrative/Plan: Pulmonary has been consulted, we will await their evaluation and recommendations Status: Acute
--- NOTE | 2016-11-04 19:57 | CONS ---
DATE OF CONSULTATION: 11/04/2016 REASON FOR CONSULTATION: Abnormal x-ray and CT scan. HISTORY OF PRESENTING ILLNESS: Mr. Ryne Marte is an 86-year-old male who was seen, evaluated, examined on the fifth floor. This patient has a somewhat complex past medical history. Patient overall is a poor historian. Predominantly data has been obtained from the chart. This patient has been found to have an abnormal CT scan of the chest, for which patient has been admitted to hospital with suspicion of pneumonia and possible neoplasm as well. Patient is short of breath, has a significant history of severe COPD. 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 Patient subsequently was hospitalized sometime around August or September this year with liver abscesses and ascending cholangitis. He was evaluated by Infectious Disease Services and has been treated with long-term antibiotics. Review of the culture results and report reveals a positive culture of enterococcus at that time. Patient has been at home, has been more short of breath, has been having intermittent abdominal pain and progressive increased shortness of breath. With those problems, the primary service decided to obtain a CT scan of the chest, abdomen and pelvis, which was performed earlier this morning today. It was found to be abnormal, with multiple lesions in the lungs varying from size 1 to 1.5 cm, as well as development of right-sided pleural effusion. I was asked to evaluate this patient further. Patient does complain of some cough but denies any night sweats, fever or chills. His appetite has been marginal. Not sure about weight loss, but feels that he has been losing weight. He denies any night sweats, fever or chills, though. The patient does feel short of breath; in fact, during conversation he requested multiple times the nebulizer treatment, which in fact already had been ordered. Patient denies any sputum production, denies any hemoptysis as well. Past medical history is significant for: 1. Recent pneumonia back in August and September; acute exacerbation of diastolic heart failure. Patient did have echocardiogram back in August with an ejection fraction of 60%. 2. Chronic atrial flutter. 3. History of small pleural effusion in the past. 4. Obstructive sleep apnea; has been on CPAP. 5. Severe COPD, emphysema. 6. Type 2 diabetes mellitus. 7. History of cancer removal with flap surgery. 8. History of chronic anemia. 9. History of chronic renal failure, which is being monitored and observed. 10. History of ascending cholangitis and liver abscess back in the later part of last year. Current medications at home include: 1. Aspirin 81 mg daily. 2. Pulmicort 2 times a day. 3. Vitamin B 12 daily. 4. Fluoxetine 10 mg daily. 5. Ferrous sulfate 325 mg daily. 6. Fluticasone nasal spray. 7. Folic acid 1 mg daily. 8. Lasix 40 mg 2 times a day. 9. Neurontin 300 b.i.d. 10. Tylenol with codeine 4 times a day. 11. Insulin Lantus 26 units in the morning. 12. DuoNeb unit dose updraft 4 times a day. 13. Synthroid 75 mcg daily. 14. Zestril 5 mg daily. 15. Magnesium oxide 400 mg daily. 16. Zaroxolyn 2.5 mg a day. 17. Lopressor 25 mg daily. 18. [place]-3 fatty acid. 19. Prilosec. 20. Potassium 20 mEq daily. 21. Flomax 0.4 mg daily. 22. Co-Q10 200 mg daily. 23. Ursodiol 250 mg 2 times a day. 24. Metformin 1 gram 2 times a day. Current medications while in the hospital include: 1. DuoNeb unit dose updraft 4 times a day. 2. Pulmicort 2 times a day. 3. Ferrous sulfate. 4. Prozac. 5. Fluticasone. 6. Folic acid. 7. Furosemide. 8. Neurontin. 9. Tylenol with codeine. 10. Dilaudid. 11. Sliding scale insulin. 12. Synthroid. 13. Lisinopril. 14. Magnesium oxide. 15. Metformin. 16. Zaroxolyn. 17. Lopressor. 18. Protonix. 19. Potassium. 20. Saline. 21. Flomax. FAMILY HISTORY AND SOCIAL HISTORY: Otherwise unremarkable and noncontributory. No history of substance abuse, alcohol consumption. Patient denies any recent smoking or nicotine use. Family history otherwise unremarkable, noncontributory. REVIEW OF SYSTEMS: [employer]: Denies any seizure-like activity, loss of consciousness, hemiparesis. CARDIORESPIRATORY: Otherwise unremarkable and noncontributory. GI/: Unremarkable. MUSCULOSKELETAL/DERMATOLOGICAL: Unremarkable except as dictated above. On examination, his most recent vitals include blood pressure 118/53, respiratory rate 20, pulse 81, temperature 97. Saturating 94% on room air. HEENT: Atraumatic, normocephalic. Pharynx is clear. Narrow pharyngeal opening is present. NECK: Supple. Neck veins are prominent, but no JVD is present. No bruit is present. No lymphadenopathy identified. The scalp, however, is covered with dressing. LUNGS: Good air entry bilaterally. Fine expiratory rhonchi are present. Dullness to percussion. Decreased air entry on the right base. HEART: Regular rate, rhythm. S1, S2 audible. ABDOMEN: Soft. No rebound or rigidity. EXTREMITIES: Plus one peripheral pulses. NEUROLOGICAL EXAMINATION: Otherwise awake and alert. No focal neurological deficit. Laboratory data include glucose of 186. Rest of the labs are pending. CT scan of the chest has been reviewed. Patient does have multiple nodules bilaterally; a few of them have ( ) cavitation. They are varying from 1 to 1.5 cm in size. There is moderate right-sided pleural effusion. Very small left-sided pleural effusion is present. No significant lymphadenopathy is seen, though. IMPRESSION: 1. Bilateral pulmonary nodules. 2. Right-sided pleural effusion. 3. History of squamous cell carcinoma of the scalp. 4. History of liver abscess. 5. Diabetes mellitus. 6. Hypertension, hypertensive cardiovascular disease. PLAN AND RECOMMENDATION: I am not clear at this point in time if these nodules are new or if they already have a diagnosis; however, patient could benefit from thoracentesis on the right side and, if they are new nodules, then will require workup which includes an echocardiogram, blood cultures and consultation with Thoracic Surgery for possible VATS procedure. Will follow clinical course closely. Further recommendations pending. In the meantime, patient can be placed on empiric antibiotics in the form of Zosyn and vancomycin. Further recommendations pending. Will order blood cultures as well. Will discuss this case with the primary service.
[2016-11-04] MEDS: IPRATROPIUM-ALBUTEROL 3 ML NEB INHALATION SCH (19:58)
[2016-11-04] MEDS: BUDESONIDE 0.5 MG/2 ML NEBU INHALATION SCH (19:58)
--- NOTE | 2016-11-04 20:12 | XR ---
EXAMINATION TYPE: XR toes RT DATE OF EXAM: 11/04/2016 6:33 PM COMPARISON: NONE HISTORY: Pain and bruising as well as swelling of the right great toe after possible injury. TECHNIQUE: 3 views were obtained of the great toe. FINDINGS: There is diffuse osseous demineralization and osteoarthritic changes demonstrated as joint space narrowing and marginal osteophytes of the proximal and distal interphalangeal joints of the sec ond, third, and fourth digits as well as the metatarsal phalangeal joint and interphalangeal joint of the great toe. No acute fracture is identified. There is chronic bulbous deformity of the dorsal gabriel ntar aspect of the great toe likely from prior healed fracture. IMPRESSION: No acute fracture or dislocation. Deformity of the plantar aspect of the distal phalanx o f the great toe likely from healed prior fracture.
[2016-11-04 21:05] LABS: Glucose,Whole Blood 178 mg/dL (75-99)
[2016-11-04 21:17] LABS: Hemoglobin A1C 7.7 % (4.2-6.1)
[2016-11-04 21:18] LABS: ALT 21 U/L (21-72); AST 16 U/L (17-59); Alkaline Phosphatase 137 U/L (38-126); Anion Gap 13 mmol/L; Blood Urea Nitrogen 33 mg/dL (9-20); Calcium 9.2 mg/dL (8.4-10.2); Carbon Dioxide 25 mmol/L (22-30); Chloride 95 mmol/L (98-107); Glucose 197 mg/dL (74-99); Non-African American GFR(MDRD) 59 (>60 ml/min/1.73 sqM); Potassium 4.4 mmol/L (3.5-5.1); Sodium 133 mmol/L (137-145); Total Bilirubin 0.8 mg/dL (0.2-1.3); Total Protein 7.4 g/dL (6.3-8.2)
[2016-11-04] MEDS: PIPERACILLIN-TAZOBACTAM 3.375 GM in DEXTROSE/WATER 1 50ML.BAG IVPB SCH (22:28)
[2016-11-04] MEDS: GABAPENTIN 300 MG CAP PO SCH (22:28)
[2016-11-04] MEDS: TAMSULOSIN 0.4 MG CAP.ER.24H PO SCH (22:28)
[2016-11-04] MEDS: PANTOPRAZOLE 40 MG TABLET PO SCH (22:28)
[2016-11-04] MEDS: INSULIN LISPRO (humaLOG) 300 UNIT/3 ML VIAL SQ SCH (22:31)
[2016-11-04] MEDS: METOPROLOL TARTRATE 25 MG TAB PO SCH (22:37)
[2016-11-05] MEDS: PIPERACILLIN-TAZOBACTAM 3.375 GM in DEXTROSE/WATER 1 50ML.BAG IVPB SCH ×4 (00:41→23:52)
[2016-11-05] MEDS: HYDROcodone/APAP 7.5-325MG 1 EACH TAB PO SCH ×6 (03:56→22:03)
[2016-11-05] MEDS: LEVOTHYROXINE 75 MCG TAB PO SCH (06:28)
[2016-11-05 07:43] LABS: ALT 14 U/L (21-72); AST 14 U/L (17-59); Alkaline Phosphatase 134 U/L (38-126); Anion Gap 7 mmol/L; Blood Urea Nitrogen 29 mg/dL (9-20); Carbon Dioxide 31 mmol/L (22-30); Chloride 97 mmol/L (98-107); Glucose 90 mg/dL (74-99); Non-African American GFR(MDRD) 54 (>60 ml/min/1.73 sqM); Potassium 3.8 mmol/L (3.5-5.1); Sodium 135 mmol/L (137-145); Total Bilirubin 0.9 mg/dL (0.2-1.3); Total Protein 6.8 g/dL (6.3-8.2)
[2016-11-05 07:51] LABS: Glucose,Whole Blood 86 mg/dL (75-99)
[2016-11-05] MEDS: BUDESONIDE 0.5 MG/2 ML NEBU INHALATION SCH ×2 (07:52→20:08)
[2016-11-05] MEDS: IPRATROPIUM-ALBUTEROL 3 ML NEB INHALATION SCH ×4 (07:52→20:08)
--- NOTE | 2016-11-05 07:56 | HP ---
DATE OF ADMISSION: CHIEF COMPLAINT: An 86-year-old white male with abnormal x-ray and CAT scan, significant abdominal pain, acute abdominal pain with respiratory distress. HISTORY OF PRESENT ILLNESS: This 86-year-old white male with a complex history of multiple admissions for abnormal CAT scan with pneumonia, possible neoplasm. He has had squamous cell carcinoma of the scalp. He was hospitalized with history of liver abscess multiple times, ascending cholangitis by infectious disease given long-term antibiotics, positive culture enterococcus at that time. Whenever he gets off his antibiotics he just becomes more short of breath and spiking fevers. He had multiple lesions of lung, 1 to 1.5 cm on CAT scan today and right-sided pleural effusion. He denies any night sweats, fever, chills. His appetite has been marginal. He states he has been losing some weight. He has severe COPD. PAST MEDICAL HISTORY: Recent pneumonia, chronic atrial flutter, small pleural effusions, obstructive sleep apnea, severe COPD, type 2 diabetes mellitus, history of cancer removal with flap surgery, history of chronic anemia, history of chronic renal failure, history of ascending cholangitis, liver abscess. MEDICATIONS: 1. Aspirin 81 daily. 2. Pulmicort b.i.d. 3. B12 daily. 4. Fluoxetine 10 mg daily. 5. Ferrous sulfate 325 mg daily. 6. Fluticasone nasal spray daily. 7. Folic acid 1 mg daily. 8. Lasix 40 b.i.d. 9. Neurontin 300 b.i.d. 10. Tylenol with codeine q.i.d. 11. Lantus 26 in the morning. 12. DuoNeb q.i.d. 13. Synthroid 75 mcg daily. 14. Zestril 5 mg daily. 15. Mag oxide 400 daily. 16. Zaroxolyn 2.5 mg daily. 17. Lopressor 25 daily. 18. [place]-3 fatty acid daily. 19. Prilosec daily. 20. Potassium 20 mEq daily. 21. Flomax 0.4 mg daily. MEDICATIONS: See list. HEENT: Normocephalic, atraumatic. He has bandage x2 on the scalp for recent surgeries that were done. NECK: Supple. No JVD. LUNGS: Show scattered wheeze, decreased breath sounds especially on the right. HEART: S1, S2. ABDOMEN: Distended due to obesity, soft. EXTREMITIES: No cyanosis, clubbing, edema. MUSCULOSKELETAL: He has joint swelling in multiple joints, especially his knees. HEMATOLOGIC: He has 2+ to 3+ pedal edema bilaterally. CAT scans were reviewed. ASSESSMENT: 1. Bilateral pulmonary nodules, right-sided pleural effusion, 2. Liver abnormalities. Rule out liver abscess. 3. Diabetes mellitus. 4. Hypertension. 5. Squamous cell carcinoma of the scalp. Biopsy will need to be done. Thoracentesis will need to be done. Echocardiogram. Blood cultures. Continue with infectious disease counseling.
[2016-11-05] MEDS: FUROSEMIDE 40 MG TAB PO SCH (08:26)
[2016-11-05] MEDS: GABAPENTIN 300 MG CAP PO SCH ×2 (08:27→22:03)
[2016-11-05] MEDS: LISINOPRIL 5 MG TAB PO SCH (08:27)
[2016-11-05] MEDS: metFORMIN 500 MG TAB PO SCH (08:27)
[2016-11-05] MEDS: INSULIN LISPRO (humaLOG) 300 UNIT/3 ML VIAL SQ SCH ×4 (08:27→22:05)
[2016-11-05] MEDS: METOLAZONE 2.5 MG TAB PO SCH (08:28)
[2016-11-05] MEDS: FLUoxetine HCL 10 MG CAP PO SCH (08:28)
[2016-11-05] MEDS: INSULIN GLARGINE 100 UNIT/ML 10 ML VIAL SQ SCH (09:29)
--- NOTE | 2016-11-05 10:47 | P.GSHP ---
History of Present Illness H&P Date: 11/05/16 Chief Complaint: Pulmonary nodules This 86-year-old male with multiple medical comorbidities. The patient has history of previous liver abscess. He's had a bili her stent placed recently. He is also had squamous cell carcinoma of the scalp excised. The patient was admitted to the hospital with mild abdominal pain. He underwent CAT scan was found have multiple pulmonary nodules. The nodular R suspicious for metastatic disease. Past Medical History Past Medical History: Cancer, Heart Failure, Diabetes Mellitus, GERD/Reflux, Hyperlipidemia, Hypertension, Liver Disease, Osteoarthritis (OA), Sleep Apnea/ CPAP/BIPAP, Thyroid Disorder Additional Past Medical History / Comment(s): HX jaundice age 11, SKIN CANCER- removal recently on head with open wound , SWELLING of ankles, hx ANEMIA, USES CANE, bradycardia, hiatal hernia, hs ulcer, History of Any Multi-Drug Resistant Organisms: None Reported Past Surgical History: Appendectomy, Cholecystectomy, Hernia Repair, Pacemaker, Tonsillectomy Additional Past Surgical History / Comment(s): lana CATARACTS WITH LENS IMPLANT, SKIN CANCER removed from head x3 Past Anesthesia/Blood Transfusion Reactions: No Reported Reaction Type of Cardiac Device: Permanent Pacemaker Device Placement Date:: 08/2015 Past Psychological History: Anxiety, Depression Additional Psychological History / Comment(s): . Smoking Status: Former smoker Past Alcohol Use History: None Reported Additional Past Alcohol Use History / Comment(s): SMOKED FOR APPROX 19 YEARS. 1PPD. QUIT SMOKING AT AGE 34. Past Drug Use History: None Reported - Past Family History Mother Family Medical History: No Reported History, Cancer Additional Family Medical History / Comment(s): LEUKEMIA Father Additional Family Medical History / Comment(s): WOUNDED IN WW1, MULTIPLE INJURES -LIVED TILL AGE 89 Brother(s) Family Medical History: Cancer Medications and Allergies Home Medications Medication Instructions Recorded Confirmed Type Aspirin EC [Ecotrin Low Dose] 81 mg PO AC-SUPPER 10/13/14 11/04/16 History Folic Acid 1 mg PO AC-SUPPER 10/13/14 11/04/16 History Lisinopril [Zestril] 5 mg PO DAILY 10/13/14 11/04/16 History Omeprazole [PriLOSEC] 20 mg PO HS 10/13/14 11/04/16 History [place]-3 Fatty Acids/Fish Oil [Fish 1 cap PO AC-SUPPER 08/24/15 11/04/16 History Oil 1,000 mg Softgel] Potassium Chloride ER [K-Dur 20] 20 meq PO AC-SUPPER 08/24/15 11/04/16 History Levothyroxine Sodium [Synthroid] 75 mcg PO DAILY 02/21/16 11/04/16 History metFORMIN HCL 1,000 mg PO QAM 02/21/16 11/04/16 History Fluticasone Nasal [place] [Flonase 2 spray EA NOSTRIL HS PRN 03/25/16 11/04/16 History Nasal [place]] Magnesium Oxide [Mag-Ox] 400 mg PO AC-SUPPER 03/25/16 11/04/16 History Tamsulosin [Flomax] 0.4 mg PO HS 03/25/16 11/04/16 History Gabapentin [Neurontin] 300 mg PO BID 08/11/16 11/04/16 History HYDROcodone/APAP 7.5-325MG [[place] 1 tab PO Q4H 08/11/16 11/04/16 History 7.5-325] Insulin Glargine [Lantus] 26 unit SQ QAM 08/11/16 11/04/16 History Metoprolol Tartrate [Lopressor] 25 mg PO HS 08/11/16 11/04/16 History Ursodiol [[place]] 250 mg PO AC-BID 08/30/16 11/04/16 History Budesonide [Pulmicort] 0.5 mg INHALATION RT-BID 11/04/16 11/04/16 History Cyanocobalamin [Vitamin B-12 1,000 mcg SQ QMONTH 11/04/16 11/04/16 History Injection] FLUoxetine HCL [PROzac] 10 mg PO DAILY 11/04/16 11/04/16 History Ferrous Sulfate [Feosol] 325 mg PO AC-SUPPER 11/04/16 11/04/16 History Furosemide [Lasix] 40 mg PO AC-BID 11/04/16 11/04/16 History Metolazone [Zaroxolyn] 2.5 mg PO QAM 11/04/16 11/04/16 History Ubidecarenone [Co Q-10] 200 mg PO AC-SUPPER 11/04/16 11/04/16 History Allergies Allergy/AdvReac Type Severity Reaction Status Date / Time [id number] Reductase AdvReac Unknown Unknown Verified 09/24/16 18:07 Inhibitor Iodinated Contrast Media - AdvReac shakes Verified 09/24/16 18:07 Oral and [Iodinated Contrast Media - IV Dye] Surgical - Exam Vital Signs Temp Pulse Resp BP Pulse Ox 97.1 F L 81 20 118/56 94 L 11/04/16 14:59 11/04/16 14:59 11/04/16 14:59 11/04/16 14:59 11/04/16 14:59 - General no distress - Eyes PERRL - Neck no masses - Respiratory normal expansion - Cardiovascular Rhythm: regular - Abdomen Abdomen: soft, non tender Results - Labs 11/04/16 16:56 11/05/16 07:03 Abnormal Lab Results - Last 24 Hours (Table) 11/04/16 11/04/16 11/04/16 Range/Units 16:56 17:00 19:07 WBC 11.5 H (3.8-10.6) k/uL RBC 3.61 L (4.30-5.90) m/uL Hgb 10.4 L (13.0-17.5) gm/dL Hct 33.3 L (39.0-53.0) % Neutrophils # 8.5 H (1.3-7.7) k/uL ESR (0-15) mm/hr Sodium (137-145) mmol/L Chloride (98-107) mmol/L Carbon Dioxide (22-30) mmol/L BUN (9-20) mg/dL Creatinine (0.66-1.25) mg/dL Glucose (74-99) mg/dL POC Glucose (mg/dL) 186 H (75-99) mg/dL Hemoglobin A1c 7.7 H (4.2-6.1) % AST (17-59) U/L ALT (21-72) U/L Alkaline Phosphatase (38-126) U/L Albumin (3.5-5.0) g/dL 11/04/16 11/04/16 11/04/16 Range/Units 19:07 19:07 21:02 WBC (3.8-10.6) k/uL RBC (4.30-5.90) m/uL Hgb (13.0-17.5) gm/dL Hct (39.0-53.0) % Neutrophils # (1.3-7.7) k/uL ESR 114 H (0-15) mm/hr Sodium 133 L (137-145) mmol/L Chloride 95 L (98-107) mmol/L Carbon Dioxide (22-30) mmol/L BUN 33 H (9-20) mg/dL Creatinine (0.66-1.25) mg/dL Glucose 197 H (74-99) mg/dL POC Glucose (mg/dL) 178 H (75-99) mg/dL Hemoglobin A1c (4.2-6.1) % AST 16 L (17-59) U/L ALT (21-72) U/L Alkaline Phosphatase 137 H (38-126) U/L Albumin 3.4 L (3.5-5.0) g/dL 11/05/16 Range/Units 07:03 WBC (3.8-10.6) k/uL RBC (4.30-5.90) m/uL Hgb (13.0-17.5) gm/dL Hct (39.0-53.0) % Neutrophils # (1.3-7.7) k/uL ESR (0-15) mm/hr Sodium 135 L (137-145) mmol/L Chloride 97 L (98-107) mmol/L Carbon Dioxide 31 H (22-30) mmol/L BUN 29 H (9-20) mg/dL Creatinine 1.26 H (0.66-1.25) mg/dL Glucose (74-99) mg/dL POC Glucose (mg/dL) (75-99) mg/dL Hemoglobin A1c (4.2-6.1) % AST 14 L (17-59) U/L ALT 14 L (21-72) U/L Alkaline Phosphatase 134 H (38-126) U/L Albumin 3.0 L (3.5-5.0) g/dL Diabetes panel 11/04/16 11/04/16 11/05/16 Range/Units 19:07 19:07 07:03 Sodium 133 L 135 L (137-145) mmol/L Potassium 4.4 3.8 (3.5-5.1) mmol/L Chloride 95 L 97 L (98-107) mmol/L Carbon Dioxide 25 31 H (22-30) mmol/L BUN 33 H 29 H (9-20) mg/dL Creatinine 1.17 1.26 H (0.66-1.25) mg/dL Glucose 197 H 90 (74-99) mg/dL Hemoglobin A1c 7.7 H (4.2-6.1) % Calcium 9.2 9.0 (8.4-10.2) mg/dL AST 16 L 14 L (17-59) U/L ALT 21 14 L (21-72) U/L Alkaline Phosphatase 137 H 134 H (38-126) U/L Total Protein 7.4 6.8 (6.3-8.2) g/dL Albumin 3.4 L 3.0 L (3.5-5.0) g/dL Thyroid panel 11/04/16 Range/Units 19:07 TSH 1.100 (0.465-4.680) mIU/L Calcium panel 11/04/16 11/05/16 Range/Units 19:07 07:03 Calcium 9.2 9.0 (8.4-10.2) mg/dL Albumin 3.4 L 3.0 L (3.5-5.0) g/dL Pituitary panel 11/04/16 11/05/16 Range/Units 19:07 07:03 Sodium 133 L 135 L (137-145) mmol/L Potassium 4.4 3.8 (3.5-5.1) mmol/L Chloride 95 L 97 L (98-107) mmol/L Carbon Dioxide 25 31 H (22-30) mmol/L BUN 33 H 29 H (9-20) mg/dL Creatinine 1.17 1.26 H (0.66-1.25) mg/dL Glucose 197 H 90 (74-99) mg/dL Calcium 9.2 9.0 (8.4-10.2) mg/dL TSH 1.100 (0.465-4.680) mIU/L Adrenal panel 11/04/16 11/05/16 Range/Units 19:07 07:03 Sodium 133 L 135 L (137-145) mmol/L Potassium 4.4 3.8 (3.5-5.1) mmol/L Chloride 95 L 97 L (98-107) mmol/L Carbon Dioxide 25 31 H (22-30) mmol/L BUN 33 H 29 H (9-20) mg/dL Creatinine 1.17 1.26 H (0.66-1.25) mg/dL Glucose 197 H 90 (74-99) mg/dL Calcium 9.2 9.0 (8.4-10.2) mg/dL Total Bilirubin 0.8 0.9 (0.2-1.3) mg/dL AST 16 L 14 L (17-59) U/L ALT 21 14 L (21-72) U/L Alkaline Phosphatase 137 H 134 H (38-126) U/L Total Protein 7.4 6.8 (6.3-8.2) g/dL Albumin 3.4 L 3.0 L (3.5-5.0) g/dL Assessment and Plan Plan: Multiple pulmonary nodules suspicious for metastatic disease. Patient apparently scheduled for CT-guided biopsy. We will follow with you.
[2016-11-05] MEDS: SODIUM CHLORIDE 0.9% 1,000 ML IV SCH (12:10)
[2016-11-05 12:15] LABS: Glucose,Whole Blood 187 mg/dL (75-99)
--- NOTE | 2016-11-05 14:13 | P.PN ---
Subjective Principal diagnosis: Sepsis Patient seen and examined covering for Dr. Polk. The patient states he is feeling much better today. He states "until the next episode." He denies any shortness of breath or chest pain. He has not had any fevers or chills overnight. Objective - Vital Signs Vital signs: Vital Signs Temp 97.3 F L 11/05/16 07:00 Pulse 74 11/05/16 11:46 Resp 16 11/05/16 07:00 BP 104/56 11/05/16 07:00 Pulse Ox 94 L 11/05/16 07:00 Intake & Output 11/04/16 11/05/16 11/05/16 18:59 06:59 18:59 Intake Total 995 Balance 995 Weight 102.27 kg 102.27 kg Intake: Intake, IV Titration 375 Amount Sodium Chloride 0.9% 1, 375 000 ml @ 75 mls/hr IV . [id number] ANNIE Rx#:[id number] Oral 620 Other: Voiding Method Bedside Commode Toilet Incontinent # Voids 1 - Exam Gen.: Patient is alert and oriented 3, no acute distress, chronically ill Cardiovascular: Regular rate and rhythm, S1/S2 Lungs: Diminished otherwise clear Abdomen: Soft nontender nondistended positive bowel sounds Extremities: No edema - Labs CBC & Chem 7: 11/04/16 16:56 11/05/16 07:03 Labs: Abnormal Lab Results - Last 24 Hours (Table) 11/04/16 11/04/16 11/04/16 Range/Units 16:56 17:00 19:07 WBC 11.5 H (3.8-10.6) k/uL RBC 3.61 L (4.30-5.90) m/uL Hgb 10.4 L (13.0-17.5) gm/dL Hct 33.3 L (39.0-53.0) % Neutrophils # 8.5 H (1.3-7.7) k/uL ESR (0-15) mm/hr Sodium (137-145) mmol/L Chloride (98-107) mmol/L Carbon Dioxide (22-30) mmol/L BUN (9-20) mg/dL Creatinine (0.66-1.25) mg/dL Glucose (74-99) mg/dL POC Glucose (mg/dL) 186 H (75-99) mg/dL Hemoglobin A1c 7.7 H (4.2-6.1) % AST (17-59) U/L ALT (21-72) U/L Alkaline Phosphatase (38-126) U/L Albumin (3.5-5.0) g/dL 11/04/16 11/04/16 11/04/16 Range/Units 19:07 19:07 21:02 WBC (3.8-10.6) k/uL RBC (4.30-5.90) m/uL Hgb (13.0-17.5) gm/dL Hct (39.0-53.0) % Neutrophils # (1.3-7.7) k/uL ESR 114 H (0-15) mm/hr Sodium 133 L (137-145) mmol/L Chloride 95 L (98-107) mmol/L Carbon Dioxide (22-30) mmol/L BUN 33 H (9-20) mg/dL Creatinine (0.66-1.25) mg/dL Glucose 197 H (74-99) mg/dL POC Glucose (mg/dL) 178 H (75-99) mg/dL Hemoglobin A1c (4.2-6.1) % AST 16 L (17-59) U/L ALT (21-72) U/L Alkaline Phosphatase 137 H (38-126) U/L Albumin 3.4 L (3.5-5.0) g/dL 11/05/16 11/05/16 Range/Units 07:03 12:09 WBC (3.8-10.6) k/uL RBC (4.30-5.90) m/uL Hgb (13.0-17.5) gm/dL Hct (39.0-53.0) % Neutrophils # (1.3-7.7) k/uL ESR (0-15) mm/hr Sodium 135 L (137-145) mmol/L Chloride 97 L (98-107) mmol/L Carbon Dioxide 31 H (22-30) mmol/L BUN 29 H (9-20) mg/dL Creatinine 1.26 H (0.66-1.25) mg/dL Glucose (74-99) mg/dL POC Glucose (mg/dL) 187 H (75-99) mg/dL Hemoglobin A1c (4.2-6.1) % AST 14 L (17-59) U/L ALT 14 L (21-72) U/L Alkaline Phosphatase 134 H (38-126) U/L Albumin 3.0 L (3.5-5.0) g/dL Assessment and Plan Plan: Bilateral pulmonary nodules with cavitation, concerning for septic emboli Right-sided pleural effusion History of squamous cell cancer of the skin History of liver abscess Diabetes mellitus type 2 Hypertension Severe COPD, not acutely exacerbated History of obstructive sleep apnea Atrial flutter Moderate pericardial effusion Partially calcified subcarinal and paraesophageal lymph nodes O2 to maintain saturation greater than or equal to 88% Right-sided thoracentesis planned CPAP nightly Check echocardiogram for valvular vegetation ID consulted Blood cultures pending Thoracic surgery is on consult Continue antibiotics: Vancomycin and Zosyn Pulmicort Duo nebs Hold Lasix Gentle hydration, monitor renal function and Na Monitor labs Will initiate subcu heparin for DVT prophylaxis Continue Protonix for GI prophylaxis
[2016-11-05] MEDS: HEPARIN SODIUM,PORCINE 5,000 UNIT/ML 1 ML VIAL SQ SCH ×2 (16:30→23:53)
--- NOTE | 2016-11-05 17:16 | PN ---
DATE OF SERVICE: 11/05/2016 SUBJECTIVE: Etytmp-tkvqq-zuvf-old white male feeling a little bit better with less fever, chills due to right upper quadrant pain. Temperature 97.3, pulse 74, respiratory rate 16 to 18, blood pressure 104/56, oxygen 94% on room air. White count 11.5, hemoglobin 10.4. Sodium 135. BUN 29, creatinine 1.26. Lungs have diminished air and scattered wheeze. CARDIOVASCULAR: Regular rate and rhythm. GENERAL: Alert and oriented x3. ABDOMEN: Soft. CHEST: ( ) right upper quadrant. Normal bowel sounds. EXTREMITIES: No cyanosis, clubbing, edema. ASSESSMENT: 1. Bilateral pulmonary nodules with cavitation. Consider septic emboli. 2. Right-sided pleural effusion. 3. Squamous cell carcinoma of skin. 4. Liver abscess. 5. Diabetes mellitus, type 2. 6. Hypertension. 7. Severe chronic obstructive pulmonary disease. 8. Obstructive sleep apnea. 9. Atrial flutter. 10. Moderate pericardial effusion. 11. Partially calcified subcarinal and paraesophageal lymph nodes. 12. Right-sided thoracentesis. PLAN: CPAP will be given. Blood cultures are pending. ( ) Surgery consult. Check echo. ID is consulted. Continue vancomycin and Zosyn, Pulmicort, DuoNeb. Gentle rehydration. Subcutaneous heparin.
[2016-11-05 17:37] LABS: Glucose,Whole Blood 131 mg/dL (75-99)
[2016-11-05] MEDS: POTASSIUM CHLORIDE ER 20 MEQ TAB.ER PO SCH (17:57)
[2016-11-05] MEDS: FOLIC ACID 1 MG TAB PO SCH (17:57)
[2016-11-05] MEDS: MAGNESIUM OXIDE 400 MG TAB PO SCH (17:57)
[2016-11-05] MEDS: FERROUS SULFATE 325 MG TAB PO SCH ×2 (17:57→18:16)
[2016-11-05] MEDS: HYDROmorphone 1 MG/ML 1 ML SYRINGE IVP PRN ×2 (17:57→23:59)
[2016-11-05 20:56] LABS: Glucose,Whole Blood 182 mg/dL (75-99)
[2016-11-05] MEDS: PANTOPRAZOLE 40 MG TABLET PO SCH (22:03)
[2016-11-05] MEDS: METOPROLOL TARTRATE 25 MG TAB PO SCH (22:04)
[2016-11-05] MEDS: TAMSULOSIN 0.4 MG CAP.ER.24H PO SCH (22:07)
[2016-11-06] MEDS: HYDROcodone/APAP 7.5-325MG 1 EACH TAB PO SCH ×7 (03:51→23:36)
[2016-11-06] MEDS: LEVOTHYROXINE 75 MCG TAB PO SCH (06:28)
[2016-11-06] MEDS: INSULIN LISPRO (humaLOG) 300 UNIT/3 ML VIAL SQ SCH ×4 (08:03→21:13)
[2016-11-06] MEDS: PIPERACILLIN-TAZOBACTAM 3.375 GM in DEXTROSE/WATER 1 50ML.BAG IVPB SCH ×3 (08:04→23:39)
[2016-11-06] MEDS: GABAPENTIN 300 MG CAP PO SCH ×2 (08:05→21:12)
[2016-11-06] MEDS: HEPARIN SODIUM,PORCINE 5,000 UNIT/ML 1 ML VIAL SQ SCH ×3 (08:05→23:41)
[2016-11-06] MEDS: METOLAZONE 2.5 MG TAB PO SCH (08:05)
[2016-11-06] MEDS: FLUoxetine HCL 10 MG CAP PO SCH (08:05)
[2016-11-06] MEDS: LISINOPRIL 5 MG TAB PO SCH (08:05)
[2016-11-06] MEDS: metFORMIN 500 MG TAB PO SCH (08:05)
[2016-11-06 08:16] LABS: Glucose,Whole Blood 142 mg/dL (75-99)
[2016-11-06] MEDS: INSULIN GLARGINE 100 UNIT/ML 10 ML VIAL SQ SCH (08:25)
[2016-11-06] MEDS: BUDESONIDE 0.5 MG/2 ML NEBU INHALATION SCH ×2 (08:30→19:48)
[2016-11-06] MEDS: IPRATROPIUM-ALBUTEROL 3 ML NEB INHALATION SCH ×4 (08:30→19:48)
[2016-11-06 11:51] LABS: Glucose,Whole Blood 219 mg/dL (75-99)
--- NOTE | 2016-11-06 14:08 | PN ---
DATE OF SERVICE: 11/06/2016 SUBJECTIVE: Bilateral pulmonary nodules suspect for septic emboli, right pleural fusion, squamous cell skin cancer, liver abscess with new abnormality in the liver, COPD, hypertension, type 2 diabetes mellitus, obstructive sleep apnea, atrial flutter, pericardial effusion. The patient set up for right-sided thoracentesis and MRI of the liver tomorrow and an echo. Infectious disease consult. Remains on broad-spectrum antibiotics. His pulse is in the 70s. Temperature 97.5, pulse 69, blood pressure 101/59, O2 93% on room air. ABDOMEN: Distended. Obesity. LUNGS: Scattered rhonchi. CARDIAC: Regular rate and rhythm HEMATOLOGIC: Negative Homans. He has had chronic anemia and leukocytosis of unclear etiology. Elevated sedimentation rate. Continue with MRI, echo thoracentesis, on Monday. Continue on broad-spectrum antibiotics.
--- NOTE | 2016-11-06 14:30 | P.PN ---
Subjective Principal diagnosis: Sepsis Patient seen and examined covering for Dr. Polk. The patient states he is feeling a little bit better today. He is eating lunch and states he is sick of clear liquid diet. He denies any shortness of breath or chest pain has not had any fevers or chills overnight. Objective - Vital Signs Vital signs: Vital Signs Temp 97.5 F L 11/06/16 07:00 Pulse 76 11/06/16 13:20 Resp 16 11/06/16 08:00 BP 101/59 11/06/16 07:00 Pulse Ox 93 L 11/06/16 07:00 Intake & Output 11/05/16 11/06/16 11/06/16 18:59 06:59 18:59 Intake Total 1050 450 Balance 1050 450 Weight 102.27 kg 102.27 kg Intake: Intake, IV Titration 650 450 Amount Piperacillin-Tazobactam 3 50 .375 gm In Dextrose/Water 1 50ml.bag @ 12.5 mls/hr IVPB Q8HR ANNIE Rx#: [id number] Sodium Chloride 0.9% 1, 600 450 000 ml @ 75 mls/hr IV . [id number] ANNIE Rx#:[id number] Oral 400 Other: Voiding Method Toilet Toilet Toilet # Voids 3 1 1 # Bowel Movements 1 1 - Exam Gen.: Patient is alert and oriented 3, no acute distress, chronically ill Cardiovascular: Regular rate and rhythm, S1/S2 Lungs: Diminished otherwise clear Abdomen: Soft nontender nondistended positive bowel sounds Extremities: No edema - Labs CBC & Chem 7: 11/04/16 16:56 11/05/16 07:03 Labs: Abnormal Lab Results - Last 24 Hours (Table) 11/05/16 11/05/16 11/06/16 Range/Units 17:25 20:41 08:00 POC Glucose (mg/dL) 131 H 182 H 142 H (75-99) mg/dL 11/06/16 Range/Units 11:48 POC Glucose (mg/dL) 219 H (75-99) mg/dL Microbiology - Last 24 Hours (Table) 11/04/16 19:35 Blood Culture - Preliminary Blood No Growth after 24 hours 11/04/16 19:07 Blood Culture - Preliminary Blood No Growth after 24 hours Assessment and Plan Plan: Bilateral pulmonary nodules with cavitation, concerning for septic emboli Right-sided pleural effusion History of squamous cell cancer of the skin History of liver abscess Diabetes mellitus type 2 Hypertension Severe COPD, not acutely exacerbated History of obstructive sleep apnea Atrial flutter Moderate pericardial effusion Partially calcified subcarinal and paraesophageal lymph nodes O2 to maintain saturation greater than or equal to 88% Right-sided thoracentesis planned CPAP nightly Check echocardiogram for valvular vegetation ID consulted Blood cultures pending Thoracic surgery is on consult Consult cardiology for possible MARCELINA Continue antibiotics: Vancomycin and Zosyn Pulmicort Duo nebs Hold Lasix Gentle hydration, monitor renal function and Na Monitor labs Continue subcu heparin for DVT prophylaxis Continue Protonix for GI prophylaxis
[2016-11-06] MEDS: POTASSIUM CHLORIDE ER 20 MEQ TAB.ER PO SCH (16:26)
[2016-11-06] MEDS: MAGNESIUM OXIDE 400 MG TAB PO SCH (16:26)
[2016-11-06] MEDS: SODIUM CHLORIDE 0.9% 1,000 ML IV SCH ×2 (16:29→19:59)
[2016-11-06] MEDS ORDERED: IV VANCOMYCIN PER PHARMACY 1 EACH MISC MISCELLANE PRN (16:52)
[2016-11-06 17:08] LABS: Glucose,Whole Blood 168 mg/dL (75-99)
[2016-11-06] MEDS ORDERED: VANCOMYCIN 1,750 MG in SODIUM CHLORIDE 0.9% 250 ML IVPB ONE ×2 (18:00→20:00)
[2016-11-06] MEDS: FERROUS SULFATE 325 MG TAB PO SCH (18:17)
[2016-11-06] MEDS: FOLIC ACID 1 MG TAB PO SCH (18:17)
[2016-11-06 19:46] LABS: Glucose,Whole Blood 124 mg/dL (75-99)
[2016-11-06] MEDS: TAMSULOSIN 0.4 MG CAP.ER.24H PO SCH (21:12)
[2016-11-06] MEDS: METOPROLOL TARTRATE 25 MG TAB PO SCH (21:12)
[2016-11-06] MEDS: PANTOPRAZOLE 40 MG TABLET PO SCH (21:12)
[2016-11-07] MEDS: HYDROcodone/APAP 7.5-325MG 1 EACH TAB PO SCH ×5 (05:11→20:21)
[2016-11-07] MEDS: SODIUM CHLORIDE 0.9% 1,000 ML IV SCH ×2 (05:15→16:09)
[2016-11-07] MEDS: LEVOTHYROXINE 75 MCG TAB PO SCH (06:12)
[2016-11-07] MEDS: VANCOMYCIN 1,750 MG in SODIUM CHLORIDE 0.9% 250 ML IVPB SCH (06:12)
[2016-11-07 07:32] LABS: Glucose,Whole Blood 98 mg/dL (75-99)
[2016-11-07] MEDS: BUDESONIDE 0.5 MG/2 ML NEBU INHALATION SCH ×2 (08:25→20:07)
[2016-11-07] MEDS: IPRATROPIUM-ALBUTEROL 3 ML NEB INHALATION SCH ×4 (08:25→20:07)
[2016-11-07] MEDS: PIPERACILLIN-TAZOBACTAM 3.375 GM in DEXTROSE/WATER 1 50ML.BAG IVPB SCH ×2 (08:38→16:20)
[2016-11-07] MEDS: INSULIN LISPRO (humaLOG) 300 UNIT/3 ML VIAL SQ SCH ×4 (08:38→21:24)
[2016-11-07] MEDS: GABAPENTIN 300 MG CAP PO SCH ×2 (08:39→21:24)
[2016-11-07] MEDS: FLUoxetine HCL 10 MG CAP PO SCH (08:39)
[2016-11-07] MEDS: INSULIN GLARGINE 100 UNIT/ML 10 ML VIAL SQ SCH (08:39)
[2016-11-07] MEDS: METOLAZONE 2.5 MG TAB PO SCH (08:40)
[2016-11-07] MEDS: metFORMIN 500 MG TAB PO SCH (08:40)
[2016-11-07] MEDS: LISINOPRIL 5 MG TAB PO SCH (08:40)
[2016-11-07] MEDS: HEPARIN SODIUM,PORCINE 5,000 UNIT/ML 1 ML VIAL SQ SCH ×2 (08:44→14:30)
[2016-11-07 09:45] LABS: Basophils % (A) 1 %; CHCM 31.6; Eosinophils # (A) 0.5 k/uL (0-0.7); Eosinophils % (A) 6 %; HCT 30.7 % (39.0-53.0); HDW 2.54; HGB 9.7 gm/dL (13.0-17.5); Luc % (Auto) 1; Lymphocytes # (A) 1.8 k/uL (1.0-4.8); Lymphocytes % (A) 23 %; MCHC 31.5 g/dL (31.0-37.0); MCV 92.2 fL (80.0-100.0); Mean Platelet Volume 6.6; Monocytes # (A) 0.5 k/uL (0-1.0); Monocytes % (A) 6 %; Neutrophils % (A) 63 %; RBC 3.33 m/uL (4.30-5.90); RDW 13.9 % (11.5-15.5)
[2016-11-07 09:54] LABS: ALT 16 U/L (21-72); AST 15 U/L (17-59); Alkaline Phosphatase 147 U/L (38-126); Anion Gap 9 mmol/L; Blood Urea Nitrogen 22 mg/dL (9-20); Calcium 8.7 mg/dL (8.4-10.2); Carbon Dioxide 26 mmol/L (22-30); Chloride 99 mmol/L (98-107); Glucose 119 mg/dL (74-99); Non-African American GFR(MDRD) 52 (>60 ml/min/1.73 sqM); Potassium 3.9 mmol/L (3.5-5.1); Sodium 134 mmol/L (137-145); Total Bilirubin 0.9 mg/dL (0.2-1.3); Total Protein 6.8 g/dL (6.3-8.2)
[2016-11-07 10:57] LABS: INR 1.2 (<1.1); Prothrombin Time 11.6 sec (9.0-12.0)
--- NOTE | 2016-11-07 11:13 | P.PN ---
Subjective Principal diagnosis: Abdominal pain Patient seen and examined. Patient is complaining of nausea this morning. He states he does not feel well overall. He is asking for something for nausea. Objective - Vital Signs Vital signs: Vital Signs Temp 97.6 F 11/07/16 07:00 Pulse 80 11/07/16 08:46 Resp 18 11/07/16 07:00 BP 117/55 11/07/16 07:00 Pulse Ox 91 L 11/07/16 07:00 Intake & Output 11/06/16 11/07/16 11/07/16 18:59 06:59 18:59 Intake Total 1530 1360 Output Total 200 Balance 1530 1360 -200 Weight 102.27 kg Intake: IV 650 Piperacillin-Tazobactam 3 50 .375 gm In Dextrose/Water 1 50ml.bag @ 12.5 mls/hr IVPB Q8HR ANNIE Rx#: [id number] Sodium Chloride 0.9% 1, 600 000 ml @ 75 mls/hr IV . [id number] ANNIE Rx#:[id number] Intake, IV Titration 1050 Amount Piperacillin-Tazobactam 3 50 .375 gm In Dextrose/Water 1 50ml.bag @ 12.5 mls/hr IVPB Q8HR ANNIE Rx#: [id number] Sodium Chloride 0.9% 1, 1000 000 ml @ 75 mls/hr IV . [id number] ANNIE Rx#:[id number] Oral 480 710 Output: Urine 200 Other: Voiding Method Toilet Toilet # Voids 1 1 1 # Bowel Movements 1 - Exam Gen.: Patient is alert and oriented 3, no acute distress, chronically ill Cardiovascular: Regular rate and rhythm, S1/S2 Lungs: Diminished otherwise clear Abdomen: Soft nontender nondistended positive bowel sounds Extremities: No edema - Labs CBC & Chem 7: 11/07/16 08:43 11/07/16 08:43 Labs: Abnormal Lab Results - Last 24 Hours (Table) 11/06/16 11/06/16 11/06/16 Range/Units 11:48 14:40 17:06 RBC (4.30-5.90) m/uL Hgb (13.0-17.5) gm/dL Hct (39.0-53.0) % Sodium (137-145) mmol/L BUN (9-20) mg/dL Creatinine (0.66-1.25) mg/dL Glucose (74-99) mg/dL POC Glucose (mg/dL) 219 H 168 H (75-99) mg/dL Plasma Lactic Acid Brooks 2.4 H* (0.7-2.0) mmol/L AST (17-59) U/L ALT (21-72) U/L Alkaline Phosphatase (38-126) U/L Albumin (3.5-5.0) g/dL 11/06/16 11/07/16 11/07/16 Range/Units 19:44 08:43 08:43 RBC 3.33 L (4.30-5.90) m/uL Hgb 9.7 L (13.0-17.5) gm/dL Hct 30.7 L (39.0-53.0) % Sodium 134 L (137-145) mmol/L BUN 22 H (9-20) mg/dL Creatinine 1.31 H (0.66-1.25) mg/dL Glucose 119 H (74-99) mg/dL POC Glucose (mg/dL) 124 H (75-99) mg/dL Plasma Lactic Acid Brooks (0.7-2.0) mmol/L AST 15 L (17-59) U/L ALT 16 L (21-72) U/L Alkaline Phosphatase 147 H (38-126) U/L Albumin 3.0 L (3.5-5.0) g/dL Microbiology - Last 24 Hours (Table) 11/04/16 19:35 Blood Culture - Preliminary Blood No Growth after 48 hours 11/04/16 19:07 Blood Culture - Preliminary Blood No Growth after 48 hours Assessment and Plan Plan: Bilateral pulmonary nodules with cavitation, concerning for septic emboli Right-sided pleural effusion History of squamous cell cancer of the skin History of liver abscess Diabetes mellitus type 2 Hypertension Severe COPD, not acutely exacerbated History of obstructive sleep apnea Atrial flutter Moderate pericardial effusion Partially calcified subcarinal and paraesophageal lymph nodes O2 to maintain saturation greater than or equal to 88% Right-sided thoracentesis planned CPAP nightly Check echocardiogram for valvular vegetation ID consulted Blood cultures negative to date Thoracic surgery is on consult Cardiology for possible MARCELINA Continue antibiotics: Vancomycin and Zosyn Pulmicort Duo nebs Hold Lasix Gentle hydration, monitor renal function and Na Monitor labs Continue subcu heparin for DVT prophylaxis Continue Protonix for GI prophylaxis Antiemetics
[2016-11-07 11:35] LABS: Glucose,Whole Blood 137 mg/dL (75-99)
--- NOTE | 2016-11-07 14:09 | P.PN ---
Subjective Principal diagnosis: Liver mass Patient is an 86-year-old male referred from Dr. Bailey with medical history significant for previous liver abscess and squamous cell carcinoma of scalp. On this admission, patient was found to have evidence of bilateral pulmonary nodules with cavitation concerning for septic emboli, right-sided pleural effusion, and moderate pericardial effusion. Upon exam, patient is complaining of mild abdominal pain, and mild nausea without vomiting. Patient denies chills or fevers, Patient had a bowel movement yesterday. Patient is urinating without difficulty. Patient is tolerating a clear liquid diet. Afebrile. No evidence of leukocytosis. Patient is awaiting MRI with gadolinium for evaluation of the liver. Pulmonary service is planning a right-sided thoracentesis. Objective - Vital Signs Vital signs: Vital Signs Temp 97.6 F 11/07/16 07:00 Pulse 76 11/07/16 12:12 Resp 18 11/07/16 08:00 BP 117/55 11/07/16 07:00 Pulse Ox 91 L 11/07/16 07:00 Intake & Output 11/06/16 11/07/16 11/07/16 18:59 06:59 18:59 Intake Total 1530 1360 Output Total 200 Balance 1530 1360 -200 Weight 102.27 kg Intake: IV 650 Piperacillin-Tazobactam 3 50 .375 gm In Dextrose/Water 1 50ml.bag @ 12.5 mls/hr IVPB Q8HR ANNIE Rx#: [id number] Sodium Chloride 0.9% 1, 600 000 ml @ 75 mls/hr IV . [id number] ANNIE Rx#:[id number] Intake, IV Titration 1050 Amount Piperacillin-Tazobactam 3 50 .375 gm In Dextrose/Water 1 50ml.bag @ 12.5 mls/hr IVPB Q8HR ANNIE Rx#: [id number] Sodium Chloride 0.9% 1, 1000 000 ml @ 75 mls/hr IV . [id number] ANNIE Rx#:[id number] Oral 480 710 Output: Urine 200 Other: Voiding Method Toilet Toilet Toilet # Voids 1 1 1 # Bowel Movements 1 - Exam GENERAL: Pt awake and alert, in no acute distress. LUNGS: Breath sounds diminished to auscultation bilaterally. No wheezes, rales , or rhonchi. HEART: Heart S1, S2, no S3 or S4. Regular rate and rhythm. No murmurs, rubs or gallops. ABDOMEN: Soft, nontender, mildly distended, normoactive bowel sounds. No guarding, no rebound. EXTREMITIES: 2+ peripheral pulses. No edema. NEUROLOGICAL: Pt oriented x 3. - Labs CBC & Chem 7: 11/07/16 08:43 11/07/16 08:43 Labs: Abnormal Lab Results - Last 24 Hours (Table) 11/06/16 11/06/16 11/06/16 Range/Units 14:40 17:06 19:44 RBC (4.30-5.90) m/uL Hgb (13.0-17.5) gm/dL Hct (39.0-53.0) % Sodium (137-145) mmol/L BUN (9-20) mg/dL Creatinine (0.66-1.25) mg/dL Glucose (74-99) mg/dL POC Glucose (mg/dL) 168 H 124 H (75-99) mg/dL Plasma Lactic Acid Brooks 2.4 H* (0.7-2.0) mmol/L AST (17-59) U/L ALT (21-72) U/L Alkaline Phosphatase (38-126) U/L Albumin (3.5-5.0) g/dL 11/07/16 11/07/16 11/07/16 Range/Units 08:43 08:43 11:34 RBC 3.33 L (4.30-5.90) m/uL Hgb 9.7 L (13.0-17.5) gm/dL Hct 30.7 L (39.0-53.0) % Sodium 134 L (137-145) mmol/L BUN 22 H (9-20) mg/dL Creatinine 1.31 H (0.66-1.25) mg/dL Glucose 119 H (74-99) mg/dL POC Glucose (mg/dL) 137 H (75-99) mg/dL Plasma Lactic Acid Brooks (0.7-2.0) mmol/L AST 15 L (17-59) U/L ALT 16 L (21-72) U/L Alkaline Phosphatase 147 H (38-126) U/L Albumin 3.0 L (3.5-5.0) g/dL Microbiology - Last 24 Hours (Table) 11/04/16 19:35 Blood Culture - Preliminary Blood No Growth after 48 hours 11/04/16 19:07 Blood Culture - Preliminary Blood No Growth after 48 hours Assessment and Plan Plan: Impression: 1. Bilateral pulmonary nodules with cavitation, concerning for septic emboli. 2. Right-sided pleural effusion. 3. History of liver abscess. 4. History of squamous cancer of skin. Plan: Continue to monitor patient. Patient is scheduled to undergo right-sided thoracentesis and possible MARCELINA to rule out valvular vegetation. Continue clear liquid diet. Continue supportive treatment and pain management. Continue to follow with consultants in medical service. The above impression and plan have been discussed and directed by Dr. Suh. Dao AOLNSO acting as scribe for Dr. Suh.
--- NOTE | 2016-11-07 16:32 | US ---
Discontinued thoracentesis HISTORY: Pleural effusion Ultrasound of the posterior right chest shows small pocket of fluid. Exam is aborted at this time, reconsult as necessary, no thoracentesis at this time
[2016-11-07 17:13] LABS: Glucose,Whole Blood 165 mg/dL (75-99)
[2016-11-07] MEDS: MAGNESIUM OXIDE 400 MG TAB PO SCH (17:28)
[2016-11-07] MEDS: FOLIC ACID 1 MG TAB PO SCH (17:28)
[2016-11-07] MEDS: POTASSIUM CHLORIDE ER 20 MEQ TAB.ER PO SCH (17:28)
[2016-11-07] MEDS: FERROUS SULFATE 325 MG TAB PO SCH (17:28)
[2016-11-07 20:06] LABS: Glucose,Whole Blood 159 mg/dL (75-99)
[2016-11-07] MEDS: PANTOPRAZOLE 40 MG TABLET PO SCH (21:24)
[2016-11-07] MEDS: TAMSULOSIN 0.4 MG CAP.ER.24H PO SCH (21:24)
[2016-11-07] MEDS: METOPROLOL TARTRATE 25 MG TAB PO SCH (21:24)
[2016-11-08] MEDS: HYDROcodone/APAP 7.5-325MG 1 EACH TAB PO SCH ×6 (00:06→19:40)
[2016-11-08] MEDS: HEPARIN SODIUM,PORCINE 5,000 UNIT/ML 1 ML VIAL SQ SCH ×3 (00:06→16:38)
[2016-11-08] MEDS: PIPERACILLIN-TAZOBACTAM 3.375 GM in DEXTROSE/WATER 1 50ML.BAG IVPB SCH ×4 (00:06→16:38)
[2016-11-08] MEDS: HYDROmorphone 1 MG/ML 1 ML SYRINGE IVP PRN (01:49)
[2016-11-08] MEDS: SODIUM CHLORIDE 0.9% 1,000 ML IV SCH ×2 (04:04→14:20)
[2016-11-08 07:01] LABS: Glucose,Whole Blood 118 mg/dL (75-99)
[2016-11-08] MEDS: LEVOTHYROXINE 75 MCG TAB PO SCH (07:08)
[2016-11-08] MEDS: VANCOMYCIN 1,750 MG in SODIUM CHLORIDE 0.9% 250 ML IVPB SCH (07:08)
[2016-11-08] MEDS: IPRATROPIUM-ALBUTEROL 3 ML NEB INHALATION SCH ×4 (07:47→21:03)
[2016-11-08] MEDS: BUDESONIDE 0.5 MG/2 ML NEBU INHALATION SCH ×2 (07:47→21:03)
--- NOTE | 2016-11-08 08:11 | CONS ---
DATE OF CONSULTATION: 11/07/2016 REASON FOR CONSULTATION: Cavitary nodules with question of septic emboli versus pneumonia. HISTORY OF PRESENT ILLNESS: The patient is an 86-year-old male well known to my service from previous admission to this Hospital where the patient initially did have Klebsiella bacteremia. This is thought to be abdominal source. He did have a CT that was suspicious for liver abscess that was aspirated. Culture was negative; however, the patient was IV antibiotic for a couple of days before the aspirate was done. The patient seems to be lost to follow up as an outpatient as he was supposed to have a repeat CT of the liver before stopping his antibiotic therapy. Subsequently he did have another admission to this facility and at that time had no abnormality in the liver and was thought to be a dilated bile duct and the intervention radiology, Dr. Strickland, recommended against further drainage of the same. Rather GI was consulted, who did an ERCP with removal of a large stone and some subsequent resolution of his symptomatology. The patient also had a recent diagnosis of squamous cell carcinoma of the scalp that has been resected x2. The patient did mention that the posterior wound was supposed to be resected further as the margin was not clear. Patient apparently did have a CT of the abdomen and pelvis done as an outpatient on the 28; however, the patient was not very clear why the same CT was done and fro what symptomatology. He has some vague symptoms of epigastric discomfort and nausea, but no vomiting. CT of abdomen and pelvis as well as chest did show possibility of left lobe liver mass as well as multiple pulmonary nodules with some cavitation as the patient has been admitted directly to the hospital. He was started on broad spectrum antibiotic and ID was consulted for further recommendation. Patient with no fever since he has been admitted to this facility and did have slightly elevated white count of 11.5 on admission which is down to 8.4 today. Liver enzymes are not significantly elevated. The patient is supposed to go for a CT guided aspirate of those nodules, which has been put on hold and also MRI of the liver is currently pending. REVIEW OF SYSTEMS: CONSTITUTIONAL: Positive for weakness and no high-grade fever. EYES: No complaint. ENT: No complaint. RESPIRATORY: Occasional cough. CARDIOVASCULAR: No complaint. GENITOURINARY: No complaint. GASTROINTESTINAL: As per HPI. MUSCULOSKELETAL: No complaint. INTEGUMENTARY: No complaint. PSYCHOLOGICAL: No complaint. ENDOCRINE: No complaint. NEUROLOGICAL: No complaint. PAST MEDICAL HISTORY: Significant for squamous cell carcinoma of the scalp. Did have history of diabetes, gastroesophageal reflux disease, hyperlipidemia, hypertension, Klebsiella bacteremia and question of liver abscess, ascending cholangitis, hypothyroidism, PAST SURGICAL HISTORY: Appendectomy, cholecystectomy, hernia repair, pacemaker, tonsillectomy, bilateral cataracts with lens implant, and pacemaker placement. SOCIAL HISTORY: The patient has 50 pack year smoking; quit about age of 34. No drinking or drug use. FAMILY HISTORY: Mother with history of leukemia. ALLERGIES: STATINS, IODINATED CONTRAST DYE. Medications include the patient is currently on [place], DuoNeb, Pulmicort, iron sulfate, Prozac, Lasix, Neurontin, heparin, Dilaudid, Lantus, Humalog, Synthroid, Zestril, mag oxide, Glucophage, Zaroxolyn, Lopressor, pip-tazobactam and vancomycin. On examination, blood pressure is 124/58 with a pulse of 90, temperature 96. He is 97% on room air. General description is an elderly male, lying in bed in no distress. No tachypnea or accessory muscle of respiration use. HEENT examination shows pallor. The wounds on the scalp with no slough tissue or surrounding erythema. NECK: Trachea central. There is no thyromegaly. LUNGS: Unlabored breathing. Clear to auscultation anteriorly. HEART: S1, S2. Regular rate and rhythm. ABDOMEN: Soft, no tenderness. EXTREMITIES: No edema of feet. SKIN: No rash or mass palpable. NEUROLOGIC: Awake, alert, oriented x2. Mood and within normal. LABS: Hemoglobin is 9.7, white count 8 with a BUN of 22 with a creatinine 1.31. Blood culture obtained which are currently pending. DIAGNOSTIC IMPRESSION AND PLAN: Patient with multiple pulmonary nodules with cavitation with a question of liver mass is suggestive more of a possible malignancy rather than any infectious etiology, as the patient is currently not running any fever and did not have an elevated white count. Clinically doubt infective endocarditis as the patient's blood culture are negative. PLAN: 1. Await the CT guided drainage of this pulmonary nodule, which will be sent for histology in relation to the cultures and await the MRI of the liver. 2. Echocardiogram has been ordered. Will follow the results. 3. Continue patient on empiric antibiotic therapy at this point; however, if the cultures are negative and malignancy confirms, will recommend discontinuation of the same. 4. Will follow up on the clinical condition to further adjust the medication if needed. Thank you for this consultation. We will follow this patient along with you. KIM
[2016-11-08] MEDS: LISINOPRIL 5 MG TAB PO SCH (08:22)
[2016-11-08] MEDS: metFORMIN 500 MG TAB PO SCH (08:22)
[2016-11-08] MEDS: METOLAZONE 2.5 MG TAB PO SCH (08:22)
[2016-11-08] MEDS: GABAPENTIN 300 MG CAP PO SCH ×2 (08:23→19:40)
[2016-11-08] MEDS: FLUoxetine HCL 10 MG CAP PO SCH (08:23)
[2016-11-08] MEDS: INSULIN GLARGINE 100 UNIT/ML 10 ML VIAL SQ SCH (08:23)
[2016-11-08] MEDS: INSULIN LISPRO (humaLOG) 300 UNIT/3 ML VIAL SQ SCH ×4 (08:24→22:10)
--- NOTE | 2016-11-08 08:25 | PN ---
SUBJECTIVE: An 86-year-old white male with abdominal pain, chronic obstructive pulmonary disease with septic emboli to the lungs with possible liver abscess. He is continued on broad spectrum antibiotics of vancomycin and Zosyn. CARDIOVASCULAR: S1, S2. LUNGS: Transmitted upper airway sounds. HEMATOLOGIC: Negative Homans. PSYCH: Thin, cachectic. PLAN: As the thoracentesis failed today, not enough fluids. The patient will be fed. He is demanding food. Will give him food. Continue broad-spectrum antibiotics. Follow-up in the next 24 to 48 hours.
[2016-11-08 08:27] LABS: Anion Gap 8 mmol/L; Blood Urea Nitrogen 20 mg/dL (9-20); Calcium 8.8 mg/dL (8.4-10.2); Carbon Dioxide 27 mmol/L (22-30); Chloride 102 mmol/L (98-107); Glucose 116 mg/dL (74-99); Non-African American GFR(MDRD) 52 (>60 ml/min/1.73 sqM); Potassium 3.9 mmol/L (3.5-5.1); Sodium 137 mmol/L (137-145)
--- NOTE | 2016-11-08 11:54 | P.PN ---
Subjective This is a 86-year-old male who is being evaluated and examined today on the fifth floor. Patient was admitted to the hospital was suspicious of pneumonia and possible neoplasm as well. This patient has a significant history for severe COPD. The patient earlier this year was found to have squamous cell carcinoma of the scalp and underwent flap surgery at [facility]. The patient subsequently was hospitalized sometime around August this year with liver abscess. He is being treated by infectious disease services for long -term antibiotics. She was at home where he became more short of breath and was having intermittent abdominal pain and increased in the extent of his shortness of breath. A CT scan of the chest abdomen and pelvis was performed and was found to be abnormal with multiple lesions of the lungs varying in size from 1-1.5 cm as well as of a developing right-sided pleural effusion. Upon examination the patient does complain of some cough which is non-productive. His appetite continues to be marginal. Objective - Vital Signs Vital signs: Vital Signs Temp 97.4 F L 11/08/16 07:00 Pulse 74 11/08/16 11:39 Resp 18 11/08/16 07:00 BP 117/57 11/08/16 07:00 Pulse Ox 92 L 11/08/16 07:00 Intake & Output 11/07/16 11/08/16 11/08/16 18:59 06:59 18:59 Intake Total 525 Output Total 400 Balance -400 525 Weight 102.27 kg 89.5 kg Intake: IV 525 Piperacillin-Tazobactam 3 75 .375 gm In Dextrose/Water 1 50ml.bag @ 12.5 mls/hr IVPB Q8HR ANNIE Rx#: [id number] Sodium Chloride 0.9% 1, 450 000 ml @ 75 mls/hr IV . [id number] ANNIE Rx#:[id number] Output: Urine 400 Other: Voiding Method Toilet Toilet Toilet # Voids 3 # Bowel Movements 1 - Exam GENERAL EXAM: Alert, comfortable in no apparent distress. HEAD: Normocephalic. EYES: Normal reaction of pupils, equal size. NOSE: Clear with pink turbinates. THROAT: No erythema or exudates. NECK: No masses, no JVD. CHEST: No chest wall deformity. LUNGS: Equal air entry with no crackles, wheeze, rhonchi or dullness. Bases diminished CVS: S1 and S2 normal with no audible mumurs, regular rhythm. ABDOMEN: No hepatosplenomegaly, normal bowel sounds, no guarding or rigidity. EXTREMITIES: No edema noted, pedal pulses palpable. SKIN: No rashes CENTRAL NERVOUS SYSTEM: No focal deficits, tone is normal in all 4 extremities. - Labs CBC & Chem 7: 11/07/16 08:43 11/08/16 07:45 Labs: Abnormal Lab Results - Last 24 Hours (Table) 11/07/16 11/07/16 11/08/16 Range/Units 17:11 20:04 06:59 Creatinine (0.66-1.25) mg/dL Glucose (74-99) mg/dL POC Glucose (mg/dL) 165 H 159 H 118 H (75-99) mg/dL 11/08/16 Range/Units 07:45 Creatinine 1.30 H (0.66-1.25) mg/dL Glucose 116 H (74-99) mg/dL POC Glucose (mg/dL) (75-99) mg/dL Microbiology - Last 24 Hours (Table) 11/04/16 19:35 Blood Culture - Preliminary Blood No Growth after 72 hours 11/04/16 19:07 Blood Culture - Preliminary Blood No Growth after 72 hours Assessment and Plan Plan: Assessment Bilateral ulnar nodules with cavitation, concerning for septic emboli Right-sided pleural effusion, improved History is, cells cancer of the skin History of liver abscess Diabetes mellitus type 2 Hypertension Severe COPD History of obstructive sleep apnea Atrial flutter Moderate pericardial effusion Partial calcified is subcarinal and paraesophageal lymph nodes Plan Occasions have been reviewed and will be continued as ordered. We will continue supplemental oxygen to maintain saturations greater than 88%. PAMELA with breathing treatments, pulmonary hygiene and supportive care. An ultrasound of the pleural effusion has been improved therefore the thoracentesis was canceled at this time. Into new with gentle hydration and monitor electrolytes. Patient should continue his CPAP nightly and when necessary. We'll obtain a chest x-ray tomorrow. We will continue to monitor labs/results and adjust treatment as necessary. I performed an examination of the patient and discussed their management with the nurse practitioner. I have reviewed the nurse practitioner's note and agree with the documented findings and plan of care.
[2016-11-08 12:01] LABS: Glucose,Whole Blood 180 mg/dL (75-99)
[2016-11-08] MEDS: ONDANSETRON 4 MG/2 ML VIAL IVP PRN ×2 (14:45→20:30)
--- NOTE | 2016-11-08 14:49 | P.PN ---
Subjective Principal diagnosis: Liver mass Patient is an 86-year-old male referred from Dr. Bailey with medical history significant for previous liver abscess and squamous cell carcinoma of scalp. On this admission, patient was found to have evidence of bilateral pulmonary nodules with cavitation concerning for septic emboli, right-sided pleural effusion, and moderate pericardial effusion. Upon exam, patient complains of mild nausea without vomiting. Denies abdominal pain. Patient had a bowel movement yesterday. Patient is urinating without difficulty. Patient is tolerating a regular liquid diet. Afebrile. Objective - Vital Signs Vital signs: Vital Signs Temp 97.4 F L 11/08/16 07:00 Pulse 74 11/08/16 11:39 Resp 18 11/08/16 07:00 BP 117/57 11/08/16 07:00 Pulse Ox 92 L 11/08/16 07:00 Intake & Output 11/07/16 11/08/16 11/08/16 18:59 06:59 18:59 Intake Total 525 Output Total 400 Balance -400 525 Weight 102.27 kg 89.5 kg Intake: IV 525 Piperacillin-Tazobactam 3 75 .375 gm In Dextrose/Water 1 50ml.bag @ 12.5 mls/hr IVPB Q8HR ANNIE Rx#: [id number] Sodium Chloride 0.9% 1, 450 000 ml @ 75 mls/hr IV . [id number] ANNIE Rx#:[id number] Output: Urine 400 Other: Voiding Method Toilet Toilet Toilet # Voids 3 # Bowel Movements 1 - Exam GENERAL: Pt awake and alert, in no acute distress. LUNGS: Breath sounds diminished to auscultation bilaterally. No wheezes, rales , or rhonchi. HEART: Heart S1, S2, no S3 or S4. Regular rate and rhythm. No murmurs, rubs or gallops. ABDOMEN: Soft, nontender, mildly distended, normoactive bowel sounds. No guarding, no rebound. EXTREMITIES: 2+ peripheral pulses. No edema. NEUROLOGICAL: Pt oriented x 3. - Labs CBC & Chem 7: 11/07/16 08:43 11/08/16 07:45 Labs: Abnormal Lab Results - Last 24 Hours (Table) 11/07/16 11/07/16 11/08/16 Range/Units 17:11 20:04 06:59 Creatinine (0.66-1.25) mg/dL Glucose (74-99) mg/dL POC Glucose (mg/dL) 165 H 159 H 118 H (75-99) mg/dL 11/08/16 11/08/16 Range/Units 07:45 11:59 Creatinine 1.30 H (0.66-1.25) mg/dL Glucose 116 H (74-99) mg/dL POC Glucose (mg/dL) 180 H (75-99) mg/dL Microbiology - Last 24 Hours (Table) 11/04/16 19:35 Blood Culture - Preliminary Blood No Growth after 72 hours 11/04/16 19:07 Blood Culture - Preliminary Blood No Growth after 72 hours Assessment and Plan Plan: Impression: 1. Bilateral pulmonary nodules with cavitation, concerning for septic emboli. 2. Right-sided pleural effusion, improving. Thoracentesis was cancelled. 3. History of liver abscess. 4. History of squamous cancer of skin. Plan: Continue to monitor patient. Consult is in place for cardiothoracic service for possible VATS procedure. Continue supportive treatment and pain management. Continue to follow with consultants and medical service. The above impression and plan have been discussed and directed by Dr. Suh. Dao ALONSO acting as scribe for Dr. Suh.
--- NOTE | 2016-11-08 16:19 | P.PN ---
Subjective 86-year-old being seen this morning with the attending. Examined and evaluated sitting up on the edge of the bed. Patients being followed by multiple consulting physicians recommendations noted appreciated and reviewed. There is no chief complaint this morning. Objective - Vital Signs Vital signs: Vital Signs Temp 96.5 F L 11/08/16 14:47 Pulse 70 11/08/16 14:47 Resp 16 11/08/16 14:47 BP 126/58 11/08/16 14:47 Pulse Ox 95 11/08/16 14:47 Intake & Output 11/07/16 11/08/16 11/08/16 18:59 06:59 18:59 Intake Total 525 Output Total 400 Balance -400 525 Weight 102.27 kg 89.5 kg 89.5 kg Intake: IV 525 Piperacillin-Tazobactam 3 75 .375 gm In Dextrose/Water 1 50ml.bag @ 12.5 mls/hr IVPB Q8HR ANNIE Rx#: [id number] Sodium Chloride 0.9% 1, 450 000 ml @ 75 mls/hr IV . [id number] ANNIE Rx#:[id number] Output: Urine 400 Other: Voiding Method Toilet Toilet Toilet # Voids 3 # Bowel Movements 1 - Exam Physical exam 86-year-old male sitting up on the edge of bed. Talkative. Denies any chest pain dizziness lightheadedness or abdominal pain lungs essentially clear adequate air movement Heart S1-S2 audible regular Abdomen soft nontender Extremities no edema - Labs CBC & Chem 7: 11/07/16 08:43 11/08/16 07:45 Labs: Abnormal Lab Results - Last 24 Hours (Table) 11/07/16 11/07/16 11/08/16 Range/Units 17:11 20:04 06:59 Creatinine (0.66-1.25) mg/dL Glucose (74-99) mg/dL POC Glucose (mg/dL) 165 H 159 H 118 H (75-99) mg/dL 11/08/16 11/08/16 Range/Units 07:45 11:59 Creatinine 1.30 H (0.66-1.25) mg/dL Glucose 116 H (74-99) mg/dL POC Glucose (mg/dL) 180 H (75-99) mg/dL Microbiology - Last 24 Hours (Table) 11/04/16 19:35 Blood Culture - Preliminary Blood No Growth after 72 hours 11/04/16 19:07 Blood Culture - Preliminary Blood No Growth after 72 hours Assessment and Plan Plan: Impression Bilateral pulmonary nodules with cavitation, concerning for septic emboli. Right-sided pleural effusion, improving. Thoracentesis was cancelled. . History of liver abscess. . History of squamous cancer of skin. 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 Adore Hightower nurse practitioner acting as a scribe for dr erazo
[2016-11-08 17:09] LABS: Glucose,Whole Blood 196 mg/dL (75-99)
[2016-11-08] MEDS: POTASSIUM CHLORIDE ER 20 MEQ TAB.ER PO SCH (18:08)
[2016-11-08] MEDS: FOLIC ACID 1 MG TAB PO SCH (18:08)
[2016-11-08] MEDS: MAGNESIUM OXIDE 400 MG TAB PO SCH (18:08)
[2016-11-08] MEDS: FERROUS SULFATE 325 MG TAB PO SCH (18:08)
[2016-11-08] MEDS: METOPROLOL TARTRATE 25 MG TAB PO SCH (19:40)
[2016-11-08] MEDS: TAMSULOSIN 0.4 MG CAP.ER.24H PO SCH (19:40)
[2016-11-08] MEDS: PANTOPRAZOLE 40 MG TABLET PO SCH (19:40)
[2016-11-08 21:21] LABS: Glucose,Whole Blood 178 mg/dL (75-99)
--- NOTE | 2016-11-08 22:29 | PN ---
DATE OF SERVICE: 11/08/2016 REASON FOR FOLLOWUP: Abnormal CT of the chest with a question of septic emboli. INTERVAL HISTORY: The patient is afebrile. He has been breathing comfortably. He is complaining of some nausea but no vomiting. No significant abdominal pain. Breathing is at baseline. No significant cough or sputum production or any diarrhea. On examination, blood pressure 126/58 with a pulse of 70, temperature 96.5. He is 95% on room air. General description is an elderly male lying in bed in no distress. RESPIRATORY SYSTEM: Unlabored breathing. Clear to auscultation anteriorly. HEART: S1, S2. Regular rate and rhythm. ABDOMEN: Soft. No tenderness. LABS: BUN of 20 with a creatinine 1.30. Blood cultures have been negative. DIAGNOSTIC IMPRESSION AND PLAN: Patient with abnormal CT with concern for possible malignancy to be high on the list rather than septic emboli, as the patient is not running any fever, did not have elevated white count, and his blood culture has been negative. Would recommend tumor markers and possible CT-guided biopsy of these lung nodules to complete the diagnosis and hold on any PICC line. Discuss further oncology/pulmonary team. Already discussed with nurse practitioner for the primary team this morning.
[2016-11-09] MEDS: HYDROcodone/APAP 7.5-325MG 1 EACH TAB PO SCH ×7 (00:12→23:00)
[2016-11-09] MEDS: HEPARIN SODIUM,PORCINE 5,000 UNIT/ML 1 ML VIAL SQ SCH ×3 (00:12→17:14)
[2016-11-09] MEDS: PIPERACILLIN-TAZOBACTAM 3.375 GM in DEXTROSE/WATER 1 50ML.BAG IVPB SCH ×4 (00:12→23:59)
[2016-11-09] MEDS: SODIUM CHLORIDE 0.9% 1,000 ML IV SCH ×3 (00:13→22:56)
[2016-11-09] MEDS ORDERED: VANCOMYCIN TROUGH DUE 1 EACH MISC MISCELLANE ONE (05:00)
[2016-11-09 05:21] LABS: Basophils % (A) 1 %; CH 28.8; Eosinophils # (A) 0.4 k/uL (0-0.7); Eosinophils % (A) 6 %; HCT 29.2 % (39.0-53.0); HDW 2.61; HGB 9.1 gm/dL (13.0-17.5); Hypochromasia Slight; Luc # (Auto) 0.13; Luc % (Auto) 2; Lymphocytes # (A) 1.4 k/uL (1.0-4.8); Lymphocytes % (A) 21 %; MCHC 31.1 g/dL (31.0-37.0); MCV 93.3 fL (80.0-100.0); Mean Platelet Volume 6.5; Monocytes # (A) 0.4 k/uL (0-1.0); Monocytes % (A) 6 %; Neutrophils # (A) 4.3 k/uL (1.3-7.7); Neutrophils % (A) 65 %; RBC 3.13 m/uL (4.30-5.90); WBC 6.6 k/uL (3.8-10.6); WBC (Perox) 6.99
[2016-11-09 05:40] LABS: ALT 22 U/L (21-72); AST 11 U/L (17-59); Alkaline Phosphatase 120 U/L (38-126); Anion Gap 9 mmol/L; Blood Urea Nitrogen 19 mg/dL (9-20); Calcium 8.6 mg/dL (8.4-10.2); Carbon Dioxide 24 mmol/L (22-30); Chloride 104 mmol/L (98-107); Glucose 181 mg/dL (74-99); Non-African American GFR(MDRD) 52 (>60 ml/min/1.73 sqM); Sodium 137 mmol/L (137-145); Total Bilirubin 0.4 mg/dL (0.2-1.3); Total Protein 6.1 g/dL (6.3-8.2)
[2016-11-09] MEDS: VANCOMYCIN 1,750 MG in SODIUM CHLORIDE 0.9% 250 ML IVPB SCH (05:51)
[2016-11-09] MEDS: LEVOTHYROXINE 75 MCG TAB PO SCH (06:23)
[2016-11-09 07:45] LABS: Glucose,Whole Blood 161 mg/dL (75-99)
[2016-11-09] MEDS: BUDESONIDE 0.5 MG/2 ML NEBU INHALATION SCH ×2 (08:17→19:36)
[2016-11-09] MEDS: IPRATROPIUM-ALBUTEROL 3 ML NEB INHALATION SCH ×4 (08:17→19:36)
[2016-11-09] MEDS: METOLAZONE 2.5 MG TAB PO SCH (09:45)
[2016-11-09] MEDS: GABAPENTIN 300 MG CAP PO SCH ×2 (09:46→20:51)
[2016-11-09] MEDS: FLUoxetine HCL 10 MG CAP PO SCH (09:46)
[2016-11-09] MEDS: metFORMIN 500 MG TAB PO SCH (09:46)
[2016-11-09] MEDS: LISINOPRIL 5 MG TAB PO SCH (09:46)
[2016-11-09] MEDS: INSULIN LISPRO (humaLOG) 300 UNIT/3 ML VIAL SQ SCH ×4 (09:49→21:19)
[2016-11-09] MEDS: INSULIN GLARGINE 100 UNIT/ML 10 ML VIAL SQ SCH (09:49)
--- NOTE | 2016-11-09 10:11 | ECHOF ---
Referral Reason:endocarditis MEASUREMENTS -------- HEIGHT: 180.3 cm WEIGHT: 102.1 kg BP: 118/69 IVSd: 1.4 cm (0.6 - 1.1) LVIDd: 3.3 cm (3.9 - 5.3) LVPWd: 1.6 cm (0.6 - 1.1) IVSs: 1.7 cm LVIDs: 1.7 cm LVPWs: 1.4 cm Ao Diam: 2.9 cm (2.0 - 3.7) AV Cusp: 1.5 cm (1.5 - 2.6) LA Diam: 3.3 cm (2.7 - 3.8) MV EXCURSION: 10.412 mm (> 18.000) MV EF SLOPE: 55 mm/s (70 - 150) EPSS: 1.8 cm MV E Murphy: 1.02 m/s MV DecT: 94 ms MV A Murphy: 1.10 m/s MV E/A Ratio: 0.93 AV maxP.78 mmHg AV meanP.80 mmHg RAP: 5.00 mmHg RVSP: 29.14 mmHg FINDINGS -------- This was a technically difficult study with suboptimal views. There is moderate concentric left ventricular hypertrophy. Overall left ventricular systolic function is normal with, an EF between 55 - 60 %. The right ventricle is normal in size and function. The left atrium is normal in size. The right atrium is normal in size. 1.5mg of Definity was utilized for enhancement of images Aortic valve is trileaflet and is moderately thickened. There is mild aortic stenosis present. Peak/mean gradient across the Aortic Valve is 14.78mmHg / 7.80mmHg. The mitral valve leaflets are mildly thickened. Mild mitral annular calcification present. Mild mitral regurgitation is present. Mild tricuspid regurgitation present. The right ventricular systolic pressure, as measured by Doppler, is 29.14mmHg. Pulmonic valve appears structurally normal. The aortic root size is normal. The pericardium is normal. CONCLUSIONS -------- 1. This was a technically difficult study with suboptimal views. 2. Peak/mean gradient across the Aortic Valve is 14.78mmHg / 7.80mmHg. 3. The mitral valve leaflets are mildly thickened. 4. Mild mitral annular calcification present. 5. Mild mitral regurgitation is present. 6. Mild tricuspid regurgitation present. 7. The right ventricular systolic pressure, as measured by Doppler, is 29.14mmHg. 8. Pulmonic valve appears structurally normal. 9. The aortic root size is normal. 10. The pericardium is normal. 11. There is moderate concentric left ventricular hypertrophy. 12. Overall left ventricular systolic function is normal with, an EF between 55 - 60 %. 13. The right ventricle is normal in size and function. 14. The left atrium is normal in size. 15. The right atrium is normal in size. 16. 1.5mg of Definity was utilized for enhancement of images 17. Aortic valve is trileaflet and is moderately thickened. 18. There is mild aortic stenosis present. WAFER FAB OPERATOR: Beatriz Michael RDCS
--- NOTE | 2016-11-09 10:36 | US ---
EXAMINATION TYPE: US liver DATE OF EXAM: 11/09/2016 8:52 AM COMPARISON: 09/19/[address] 11/04/2016. CLINICAL HISTORY: 86-year-old male possible liver masses. Possible liver masses, history of cholecyst ectomy TECHNIQUE: Multiple sonographic images of the right upper quadrant were obtained. FINDINGS: Liver Length: 16.4 cm Gallbladder: surgically absent CBD: 0.5 cm Right Kidney: 11.1 x 5.9 x 5.6 cm Pancreas: obscured by overlying midline bowel gas Liver: visualized portions appear heterogeneous without any definite lesions seen at this time, scan joyce intercostally, limited by rib shadowing, left lobe obscured by overlying midline bowel gas. Scatt ered echogenic areas with ringdown in the liver particularly on the left suggests pneumobilia as seen on prior CT. Gallbladder: surgically absent Evidence for sonographic Oquendo's sign: no CBD: visualized portions wnl, limited by overlying bowel gas Right Kidney: thin renal cortex without hydronephrosis. Limited by overlying bowel gas RESSION: 1. Limited evaluation due to intercostal scanning of the liver and much of the left lobe obscured by bowel gas shadowing. There is pneumobilia and a heterogeneous appearance. 2. Status post cholecystectomy. 3. Chronic medical renal disease.
--- NOTE | 2016-11-09 10:46 | XR ---
EXAMINATION TYPE: XR chest 2V DATE OF EXAM: 11/09/2016 9:05 AM COMPARISON: 09/25/2016 HISTORY: 86-year-old male shortness of breath TECHNIQUE: Frontal and lateral views FINDINGS: Heart is upper limits of normal in size. Left anterior chest wall generator with right atrial and rig ht ventricular leads. Diffuse interstitial and vascular prominence with trace pleural effusions and s ome patchy bibasilar densities. Some subtle pulmonary nodularity is demonstrated better appreciated o n patient's prior CTs. IMPRESSION: 1. Correlate for CHF with pulmonary vascular congestion. 2. Trace pleural effusions with adjacent atelectasis and/or consolidation. 3. Subtle pulmonary nodularity better appreciated on patient's recent CT scan.
[2016-11-09 11:13] LABS: Glucose,Whole Blood 160 mg/dL (75-99)
--- NOTE | 2016-11-09 14:58 | PN ---
DATE OF SERVICE: 11/09/2016 Reason for followup is abnormal CT of the chest with a question of septic emboli and abnormality on the liver. INTERVAL HISTORY: The patient is afebrile. He is complaining of feeling weak and lethargic though denies significant chest pain or cough. Some nausea, but no vomiting. No abdominal pain and no diarrhea. On examination, blood pressure is 108/59, pulse of 70, temperature 97.7. He is 92% on room air. General description is an elderly male, lying in bed in no distress. RESPIRATORY SYSTEM: Unlabored breathing. Clear to auscultation anteriorly. HEART: S1, S2, regular rate and rhythm. ABDOMEN: Soft, no tenderness. LABS: Hemoglobin is 9.1, white count is 6.6 with a BUN of 19, creatinine 1.30, blood pressure remains to be negative. DIAGNOSTIC IMPRESSION AND PLAN: Patient admitted to the hospital with abnormal CT of the abdomen and pelvis with consult for possible cavitary lesion in the lungs, suspicion is high for possible malignancy, but other than septic emboli as the patient is not running any fever, did not have an elevated white count and blood cultures are negative. Recommend obtaining a CT-guided biopsy of the abnormality on the liver. If the liver abnormality is too small to be biopsied, the patient may also benefit from a tumor marker. This was discussed with the nurse practitioner for the primary team. Await evaluation by Oncology, continue empiric antibiotics. Continue supportive care.
--- NOTE | 2016-11-09 16:30 | P.PN ---
Subjective This is a 86-year-old male who is being evaluated and examined today on the fifth floor. Patient was admitted to the hospital was suspicious of pneumonia and possible neoplasm as well. This patient has a significant history for severe COPD. The patient earlier this year was found to have squamous cell carcinoma of the scalp and underwent flap surgery at [facility]. The patient subsequently was hospitalized sometime around August this year with liver abscess. He is being treated by infectious disease services for long -term antibiotics. She was at home where he became more short of breath and was having intermittent abdominal pain and increased in the extent of his shortness of breath. A CT scan of the chest abdomen and pelvis was performed and was found to be abnormal with multiple lesions of the lungs varying in size from 1-1.5 cm as well as of a developing right-sided pleural effusion. Upon examination the patient does complain of some cough which is non-productive. His appetite continues to be marginal. Patient may require additional procedures , further recommendations forthcoming. Objective - Vital Signs Vital signs: Vital Signs Temp 97.7 F 11/09/16 07:00 Pulse 74 11/09/16 11:50 Resp 16 11/09/16 07:00 BP 108/59 11/09/16 07:00 Pulse Ox 92 L 11/09/16 07:00 Intake & Output 11/08/16 11/09/16 11/09/16 18:59 06:59 18:59 Intake Total 1270 Balance 1270 Weight 89.5 kg 89.5 kg Intake: IV 550 Piperacillin-Tazobactam 3 100 .375 gm In Dextrose/Water 1 50ml.bag @ 12.5 mls/hr IVPB Q8HR ANNIE Rx#: [id number] Sodium Chloride 0.9% 1, 450 000 ml @ 75 mls/hr IV . [id number] ANNIE Rx#:[id number] Oral 720 Other: Voiding Method Toilet Toilet Toilet # Voids 2 1 - Exam GENERAL EXAM: Alert, comfortable in no apparent distress. HEAD: Normocephalic. EYES: Normal reaction of pupils, equal size. NOSE: Clear with pink turbinates. THROAT: No erythema or exudates. NECK: No masses, no JVD. CHEST: No chest wall deformity. LUNGS: Equal air entry with no crackles, wheeze, rhonchi or dullness. Bases diminished CVS: S1 and S2 normal with no audible mumurs, regular rhythm. ABDOMEN: No hepatosplenomegaly, normal bowel sounds, no guarding or rigidity. EXTREMITIES: No edema noted, pedal pulses palpable. SKIN: No rashes CENTRAL NERVOUS SYSTEM: No focal deficits, tone is normal in all 4 extremities. - Labs CBC & Chem 7: 11/09/16 05:08 11/09/16 05:08 Labs: Abnormal Lab Results - Last 24 Hours (Table) 11/08/16 11/08/16 11/09/16 Range/Units 17:07 21:01 05:08 RBC (4.30-5.90) m/uL Hgb (13.0-17.5) gm/dL Hct (39.0-53.0) % Creatinine 1.30 H (0.66-1.25) mg/dL Glucose 181 H (74-99) mg/dL POC Glucose (mg/dL) 196 H 178 H (75-99) mg/dL AST 11 L (17-59) U/L Total Protein 6.1 L (6.3-8.2) g/dL Albumin 2.7 L (3.5-5.0) g/dL 11/09/16 11/09/16 11/09/16 Range/Units 05:08 07:44 11:11 RBC 3.13 L (4.30-5.90) m/uL Hgb 9.1 L (13.0-17.5) gm/dL Hct 29.2 L (39.0-53.0) % Creatinine (0.66-1.25) mg/dL Glucose (74-99) mg/dL POC Glucose (mg/dL) 161 H 160 H (75-99) mg/dL AST (17-59) U/L Total Protein (6.3-8.2) g/dL Albumin (3.5-5.0) g/dL Microbiology - Last 24 Hours (Table) 11/04/16 19:35 Blood Culture - Preliminary Blood No Growth after 96 hours 11/04/16 19:07 Blood Culture - Preliminary Blood No Growth after 96 hours Assessment and Plan Plan: Assessment Bilateral ulnar nodules with cavitation, concerning for septic emboli Right-sided pleural effusion, improved History is, cells cancer of the skin History of liver abscess Diabetes mellitus type 2 Hypertension Severe COPD History of obstructive sleep apnea Atrial flutter Moderate pericardial effusion Partial calcified is subcarinal and paraesophageal lymph nodes Plan Medications have been reviewed and will be continued as ordered. We will continue supplemental oxygen to maintain saturations greater than 88%. Continue with breathing treatments, pulmonary hygiene and supportive care. Continue to monitor the effusions. Continue with gentle hydration and monitor electrolytes. Patient should continue his CPAP nightly and when necessary. We will continue to monitor labs/results and adjust treatment as necessary. Further recommendations forthcoming this evening, after collaboration, and review. I performed an examination of the patient and discussed their management with the nurse practitioner. I have reviewed the nurse practitioner's note and agree with the documented findings and plan of care.
--- NOTE | 2016-11-09 16:42 | P.PN ---
Subjective Principal diagnosis: Liver mass Patient is an 86-year-old male referred from Dr. Bailey with medical history significant for previous liver abscess and squamous cell carcinoma of scalp. On this admission, patient was found to have evidence of bilateral pulmonary nodules with cavitation concerning for septic emboli, right-sided pleural effusion, and moderate pericardial effusion. Upon exam, patient complains of mild nausea without vomiting. Denies abdominal pain. Patient is urinating without difficulty. Afebrile. Results of liver ultrasound pending. Patient is scheduled for liver biopsy. Objective - Vital Signs Vital signs: Vital Signs Temp 97.9 F 11/09/16 15:00 Pulse 77 11/09/16 15:00 Resp 16 11/09/16 15:00 BP 117/62 11/09/16 15:00 Pulse Ox 93 L 11/09/16 15:00 Intake & Output 11/08/16 11/09/16 11/09/16 18:59 06:59 18:59 Intake Total 1270 Balance 1270 Weight 89.5 kg 89.5 kg Intake: IV 550 Piperacillin-Tazobactam 3 100 .375 gm In Dextrose/Water 1 50ml.bag @ 12.5 mls/hr IVPB Q8HR ANNIE Rx#: [id number] Sodium Chloride 0.9% 1, 450 000 ml @ 75 mls/hr IV . [id number] ANNIE Rx#:[id number] Oral 720 Other: Voiding Method Toilet Toilet Toilet # Voids 2 1 2 # Bowel Movements 2 - Exam GENERAL: Pt awake and alert, in no acute distress. LUNGS: Breath sounds diminished to auscultation bilaterally. No wheezes, rales , or rhonchi. HEART: Heart S1, S2, no S3 or S4. Regular rate and rhythm. No murmurs, rubs or gallops. ABDOMEN: Soft, nontender, mildly distended, normoactive bowel sounds. No guarding, no rebound. EXTREMITIES: 2+ peripheral pulses. No edema. NEUROLOGICAL: Pt oriented x 3. - Labs CBC & Chem 7: 11/09/16 05:08 11/09/16 05:08 Labs: Abnormal Lab Results - Last 24 Hours (Table) 11/08/16 11/08/16 11/09/16 Range/Units 17:07 21:01 05:08 RBC (4.30-5.90) m/uL Hgb (13.0-17.5) gm/dL Hct (39.0-53.0) % Creatinine 1.30 H (0.66-1.25) mg/dL Glucose 181 H (74-99) mg/dL POC Glucose (mg/dL) 196 H 178 H (75-99) mg/dL AST 11 L (17-59) U/L Total Protein 6.1 L (6.3-8.2) g/dL Albumin 2.7 L (3.5-5.0) g/dL 11/09/16 11/09/16 11/09/16 Range/Units 05:08 07:44 11:11 RBC 3.13 L (4.30-5.90) m/uL Hgb 9.1 L (13.0-17.5) gm/dL Hct 29.2 L (39.0-53.0) % Creatinine (0.66-1.25) mg/dL Glucose (74-99) mg/dL POC Glucose (mg/dL) 161 H 160 H (75-99) mg/dL AST (17-59) U/L Total Protein (6.3-8.2) g/dL Albumin (3.5-5.0) g/dL Microbiology - Last 24 Hours (Table) 11/04/16 19:35 Blood Culture - Preliminary Blood No Growth after 96 hours 11/04/16 19:07 Blood Culture - Preliminary Blood No Growth after 96 hours Assessment and Plan Plan: Impression: 1. Bilateral pulmonary nodules with cavitation, concerning for septic emboli. 2. Right-sided pleural effusion, improving. Thoracentesis was cancelled. 3. History of liver abscess. 4. History of squamous cancer of skin. Plan: Continue to monitor patient. Await result of liver biopsy and ultrasound. Continue supportive treatment and pain management. Continue to follow with consultants and medical service. The above impression and plan have been discussed and directed by Dr. Suh. Dao ALONSO acting as scribe for Dr. Suh.
[2016-11-09 16:44] LABS: Glucose,Whole Blood 237 mg/dL (75-99)
[2016-11-09] MEDS: POTASSIUM CHLORIDE ER 20 MEQ TAB.ER PO SCH (17:20)
[2016-11-09] MEDS: FOLIC ACID 1 MG TAB PO SCH (17:20)
[2016-11-09] MEDS: MAGNESIUM OXIDE 400 MG TAB PO SCH (17:20)
[2016-11-09] MEDS: FERROUS SULFATE 325 MG TAB PO SCH (17:20)
--- NOTE | 2016-11-09 17:38 | P.PN ---
Subjective 86-year-old being seen and examined. Currently sitting up in a chair. Patients being followed by pulmonary and surgical service. Objective - Vital Signs Vital signs: Vital Signs Temp 97.9 F 11/09/16 15:00 Pulse 80 11/09/16 16:44 Resp 16 11/09/16 15:00 BP 117/62 11/09/16 15:00 Pulse Ox 93 L 11/09/16 15:00 Intake & Output 11/08/16 11/09/16 11/09/16 18:59 06:59 18:59 Intake Total 1270 Balance 1270 Weight 89.5 kg 89.5 kg Intake: IV 550 Piperacillin-Tazobactam 3 100 .375 gm In Dextrose/Water 1 50ml.bag @ 12.5 mls/hr IVPB Q8HR ANNIE Rx#: [id number] Sodium Chloride 0.9% 1, 450 000 ml @ 75 mls/hr IV . [id number] ANNIE Rx#:[id number] Oral 720 Other: Voiding Method Toilet Toilet Toilet # Voids 2 1 2 # Bowel Movements 2 - Exam Physical exam 86-year-old male sitting up on the edge of bed. Talkative. Denies any chest pain dizziness lightheadedness or abdominal pain lungs essentially clear adequate air movement Heart S1-S2 audible regular Abdomen soft nontender Extremities no edema - Labs CBC & Chem 7: 11/09/16 05:08 11/09/16 05:08 Labs: Abnormal Lab Results - Last 24 Hours (Table) 11/08/16 11/09/16 11/09/16 Range/Units 21:01 05:08 05:08 RBC 3.13 L (4.30-5.90) m/uL Hgb 9.1 L (13.0-17.5) gm/dL Hct 29.2 L (39.0-53.0) % Creatinine 1.30 H (0.66-1.25) mg/dL Glucose 181 H (74-99) mg/dL POC Glucose (mg/dL) 178 H (75-99) mg/dL AST 11 L (17-59) U/L Total Protein 6.1 L (6.3-8.2) g/dL Albumin 2.7 L (3.5-5.0) g/dL 11/09/16 11/09/1611/09/17 Range/Units 07:44 11:11 16:42 RBC (4.30-5.90) m/uL Hgb (13.0-17.5) gm/dL Hct (39.0-53.0) % Creatinine (0.66-1.25) mg/dL Glucose (74-99) mg/dL POC Glucose (mg/dL) 161 H 160 H 237 H (75-99) mg/dL AST (17-59) U/L Total Protein (6.3-8.2) g/dL Albumin (3.5-5.0) g/dL Microbiology - Last 24 Hours (Table) 11/04/16 19:35 Blood Culture - Preliminary Blood No Growth after 96 hours 11/04/16 19:07 Blood Culture - Preliminary Blood No Growth after 96 hours Assessment and Plan Plan: Impression Bilateral pulmonary nodules with cavitation, concerning for septic emboli. Right-sided pleural effusion, improving. Thoracentesis was cancelled. . History of liver abscess. . History of squamous cancer of skin. 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 Adore Hightower nurse practitioner acting as a scribe for dr erazo
[2016-11-09] MEDS: PANTOPRAZOLE 40 MG TABLET PO SCH (20:51)
[2016-11-09] MEDS: TAMSULOSIN 0.4 MG CAP.ER.24H PO SCH (20:51)
[2016-11-09] MEDS: METOPROLOL TARTRATE 25 MG TAB PO SCH (20:51)
[2016-11-09 21:16] LABS: Glucose,Whole Blood 208 mg/dL (75-99)
--- NOTE | 2016-11-09 22:00 | PN ---
For details, please refer to earlier note on him. Care plan was discussed with the primary service at length. Mr. Marte is an 86-year-old male who has a recent diagnosis of squamous cell cancer of the scalp in 2 areas. Earlier this year he was evaluated and treated at [facility]. Patient now has been admitted with multiple nodules in the lung and small right-sided pleural effusion. Review of the data revealed that the pleural fluid was not enough, so it was not tapped. CT-guided biopsy was not performed due to risk of pneumothorax, as the nodules appear to be deeply seated into the lungs. I have discussed with the patient as well as his granddaughter present at bedside, with whom he resides, about bronchoscopy and transbronchial lung biopsy. Procedure, complications and side effects have been explained. Will tentatively scheduled for tomorrow morning for transbronchial lung biopsy under fluoroscopic guidance.
[2016-11-09] MEDS: HYDROmorphone 1 MG/ML 1 ML SYRINGE IVP PRN (23:59)
[2016-11-10] MEDS: HEPARIN SODIUM,PORCINE 5,000 UNIT/ML 1 ML VIAL SQ SCH ×3 (00:04→16:01)
[2016-11-10] MEDS: HYDROcodone/APAP 7.5-325MG 1 EACH TAB PO SCH ×5 (04:40→21:47)
[2016-11-10] MEDS: VANCOMYCIN 1,750 MG in SODIUM CHLORIDE 0.9% 250 ML IVPB SCH (06:08)
[2016-11-10] MEDS: BUDESONIDE 0.5 MG/2 ML NEBU INHALATION SCH ×2 (07:35→20:04)
[2016-11-10] MEDS: IPRATROPIUM-ALBUTEROL 3 ML NEB INHALATION SCH ×4 (07:35→20:04)
[2016-11-10] MEDS: INSULIN LISPRO (humaLOG) 300 UNIT/3 ML VIAL SQ SCH ×4 (07:51→21:48)
[2016-11-10 07:52] LABS: Glucose,Whole Blood 146 mg/dL (75-99)
[2016-11-10] MEDS: HYDROmorphone 1 MG/ML 1 ML SYRINGE IVP PRN ×3 (08:06→19:41)
[2016-11-10] MEDS: PIPERACILLIN-TAZOBACTAM 3.375 GM in DEXTROSE/WATER 1 50ML.BAG IVPB SCH ×2 (08:07→16:02)
[2016-11-10 09:06] LABS: Anion Gap 9 mmol/L; Blood Urea Nitrogen 15 mg/dL (9-20); Carbon Dioxide 25 mmol/L (22-30); Chloride 106 mmol/L (98-107); Glucose 150 mg/dL (74-99); Non-African American GFR(MDRD) >60 (>60 ml/min/1.73 sqM); Potassium 4.1 mmol/L (3.5-5.1); Sodium 140 mmol/L (137-145)
[2016-11-10] MEDS ORDERED: PROPOFOL 10 MG/ML 20 ML VIAL IV ONE (09:42)
[2016-11-10] MEDS ORDERED: LIDOCAINE 1% INJ 10MG/ML (20 ML MDV) ONE (09:42)
[2016-11-10] MEDS ORDERED: IV FLUID CONTINUATION 700 ML IV ONE (09:46)
[2016-11-10] MEDS ORDERED: LIDOCAINE 1% 20 ML VIAL (10MG/ML) FOR IV START INTRATRACH ONE (09:58)
[2016-11-10] MEDS ORDERED: LIDOCAINE 2%-EPI 1:100,000 20 ML VIAL SUBMUCOSAL ONE (10:00)
--- NOTE | 2016-11-10 10:23 | PN ---
Patient is seen, evaluated and examined on the fifth floor. Clinically, patient is not much changed, still gets short of breath on activity and exertion. Patient is status post ultrasound of the abdomen which failed to reveal any significant finding. I had detailed discussion with the patient's granddaughter at the bedside as well as primary service. Plan is to proceed with transbronchial lung biopsy of the lung nodules. Patient had does have cough and nonproductive. Appetite has been stable. His last set of vitals include blood pressure is 113/64, respiratory rate 16, pulse 70, temperature is 98, saturating 97%. HEENT: Unremarkable, atraumatic, normocephalic. Pharynx is clear, except the scalp where the dressing has been applied, given prior history of squamous cell cancer of the scalp. NECK: Supple without lymphadenopathy, jugular venous distention or carotid bruit. LUNGS: Bilateral good air entry is present, decreased air entry on the right base. HEART: Regular rate and rhythm, S1 and S2 audible. Abdomen is soft, no rebound. EXTREMITIES: +1 peripheral pulses. NEUROLOGICAL EXAMINATION: Otherwise, awake and alert. Laboratory data reviewed. Sodium is 140, potassium 4.1. BUN and creatinine 15 and 1.15. Medications reviewed which include Tylenol with Codeine 4 times a day. Also on DuoNeb unit dose updraft 4 times a day. Pulmicort 2 times a day, ferrous sulfate 325 mg a day, Prozac 10 mg daily, fluticasone nasal spray, folic acid, Lasix 40 mg a day, Neurontin 300 mg 2 times a day, heparin 5000 units subQ q.8 hourly, Dilaudid for pain control, Lantus, Humalog, Synthroid, lisinopril, Mag-Ox, Zaroxolyn, Glucophage, Lopressor, Zosyn, tamsulosin and vancomycin. IMPRESSION: 1. Right-sided, small to moderate pleural effusion as per radiologist comment, not enough to tap; however, if her biopsy is nondiagnostic, maybe diagnostic tap can be performed on outpatient setting. 2. Multiple nodules, some of them are cavitary, bilaterally. Infective endocarditis is less likely as acquired blood cultures have been negative. Patient is afebrile without any white cell count. The likely of neoplastic process, metastatic secondary due to unknown primary or scalp is there. As per discussion with the primary service, they would like to proceed with a biopsy. The Interventional Radiology have declined to do the biopsy, given the size of the tumor and high likelihood of pneumothorax giving transthoracic. I reviewed the CT scan and x-ray. Will do a transbronchial biopsy, risk of bleeding complication and pneumothorax remains there which has been discussed with the patient as well as daughter at length. 3. Hypertension, hypertensive cardiovascular disease. 4. Chronic obstructive pulmonary disease. 5. Hypothyroidism. 6. Diabetes mellitus. PLAN: As above. Will follow.
--- NOTE | 2016-11-10 10:32 | XR ---
EXAMINATION TYPE: XR chest 1V portable DATE OF EXAM: 11/10/2016 10:26 AM COMPARISON: 11/09/2016 HISTORY: Shortness of breath FINDINGS: No evidence for pneumothorax. Nodularity persists. Noted is pulmonary venous congestion with scattered infiltrates. There is also cardiomegaly and small effusions. IMPRESSION: Findings compatible with congestive failure. Infiltrates of other etiology are not excluded. Clinical correlation and progress studies are recommended.
[2016-11-10] MEDS: metFORMIN 500 MG TAB PO SCH (10:47)
[2016-11-10] MEDS: LEVOTHYROXINE 75 MCG TAB PO SCH (10:47)
[2016-11-10] MEDS: LISINOPRIL 5 MG TAB PO SCH (10:48)
[2016-11-10] MEDS: METOLAZONE 2.5 MG TAB PO SCH (10:48)
[2016-11-10] MEDS: GABAPENTIN 300 MG CAP PO SCH ×2 (10:48→21:48)
[2016-11-10] MEDS: FLUoxetine HCL 10 MG CAP PO SCH (10:48)
--- NOTE | 2016-11-10 11:33 | PCN ---
DATE OF PROCEDURE: 11/10/2016 PROCEDURES DONE: 1. Bronchoscopy. 2. Bronchial alveolar lavage. 3. Transbronchial lung biopsy. OPERATIVE DETAIL: Patient prepared and draped in the usual fashion. For anesthesia, please refer to anesthesia report. INDICATIONS: 1. Bilateral multiple lung nodules. 2. Pneumonia. 3. Right pleural effusion. 4. History of squamous cell cancer of the scalp. OPERATIVE DETAIL: Patient prepared and draped in the usual fashion. The conscious sedation was provided with the Anesthesia Service. Tip of the scope was passed through the right nares into the laryngeal area, vocal cords were normal in structure and function. Tip of the scope was passed beyond the vocal cords into trachea which was normal. Right upper lobe, right lower lobe and right middle lobe along with subsegment inspected. Followed by inspection of the left side involving left upper lobe, lingular lobe, and left lower lobe along with subsegment. No endobronchial mass or lesion was identified. Mild mucosa erythema and edema bilaterally was present. BAL was performed from the left upper lobe under fluoroscopic guidance. Multiple transbronchial biopsies were done in the left upper lobe, before and after 5 mL of 1:100,000 epinephrine mixed with lido was given as well. Patient tolerated the procedure well. No complication noted. SATs remained stable. Estimated blood loss of about 10 mL. Postprocedure chest x-ray ordered.
[2016-11-10 12:02] LABS: Glucose,Whole Blood 176 mg/dL (75-99)
[2016-11-10] MEDS: INSULIN GLARGINE 100 UNIT/ML 10 ML VIAL SQ SCH (12:21)
--- NOTE | 2016-11-10 15:02 | P.PN ---
Subjective 86-year-old male being seen this morning patient is scheduled today for a bronchoscopic by pulmonology service. For workup of bilateral multiple lung nodules. no new events noted during the night Objective - Vital Signs Vital signs: Vital Signs Temp 97.3 F L 11/10/16 07:00 Pulse 88 11/10/16 11:31 Resp 16 11/10/16 08:00 BP 113/64 11/10/16 07:00 Pulse Ox 93 L 11/10/16 07:00 Intake & Output 11/09/16 11/10/16 11/10/16 18:59 06:59 18:59 Intake Total 1090 200 Balance 1090 200 Weight 107 kg 107 kg Intake: IV 650 200 Piperacillin-Tazobactam 3 50 .375 gm In Dextrose/Water 1 50ml.bag @ 12.5 mls/hr IVPB Q8HR ANNIE Rx#: [id number] Sodium Chloride 0.9% 1, 600 000 ml @ 75 mls/hr IV . [id number] ANNIE Rx#:[id number] Oral 440 Other: Voiding Method Toilet Toilet Toilet Urinal Urinal # Voids 2 1 1 # Bowel Movements 2 0 - Exam Physical exam 86-year-old male sitting up on the edge of bed. Nothing by mouth aware of the plan for bronchoscopic this morning. Denies any chest pain dizziness lightheadedness or abdominal pain lungs essentially clear adequate air movement cough noted Heart S1-S2 audible regular no murmur noted denying chest pain Abdomen soft nontender not distended reports of nausea vomiting Extremities no edema - Labs CBC & Chem 7: 11/09/16 05:08 11/10/16 07:57 Labs: Abnormal Lab Results - Last 24 Hours (Table) 11/09/16 11/09/16 11/10/16 Range/Units 16:42 21:15 07:41 Glucose (74-99) mg/dL POC Glucose (mg/dL) 237 H 208 H 146 H (75-99) mg/dL 11/10/16 11/10/16 Range/Units 07:57 11:58 Glucose 150 H (74-99) mg/dL POC Glucose (mg/dL) 176 H (75-99) mg/dL Microbiology - Last 24 Hours (Table) 11/04/16 19:35 Blood Culture - Preliminary Blood No Growth after 120 hours 11/04/16 19:07 Blood Culture - Preliminary Blood No Growth after 120 hours Assessment and Plan Plan: Impression Bilateral pulmonary nodules with cavitation, concerning for septic emboli. Right-sided pleural effusion, improving. Thoracentesis was cancelled. . History of liver abscess. . History of squamous cancer of skin and scalp. 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 surgery of the scalp at [facility] Type 2 diabetes Obstructive sleep apnea with the use of CPAP therapy Moderate pericardial effusion Partial calcified is subcarinal and paraesophageal lymph nodes History of liver abscess Bilateral pulmonary nodules with cavitation Status post bronchoscopic be with transbronchial lung biopsy from the left lower lobe and bronchial alveolar process Plan Follow up on the biopsies from the left lower lobe Continue recommendations by pulmonology Continue recommendations by surgical service DVT and GI prophylaxis Further recommendations pending The above dictated assessment and findings were discussed with dr erazo Impression and the plan of care have been dictated as directed. Adore Hightower nurse practitioner acting as a scribe for dr erazo
[2016-11-10] MEDS: POTASSIUM CHLORIDE ER 20 MEQ TAB.ER PO SCH (17:10)
[2016-11-10] MEDS: FOLIC ACID 1 MG TAB PO SCH (17:10)
[2016-11-10] MEDS: MAGNESIUM OXIDE 400 MG TAB PO SCH (17:10)
[2016-11-10] MEDS: FERROUS SULFATE 325 MG TAB PO SCH (17:10)
[2016-11-10 17:13] LABS: Glucose,Whole Blood 200 mg/dL (75-99)
[2016-11-10 20:26] LABS: Glucose,Whole Blood 192 mg/dL (75-99)
[2016-11-10] MEDS: METOPROLOL TARTRATE 25 MG TAB PO SCH (21:48)
[2016-11-10] MEDS: PANTOPRAZOLE 40 MG TABLET PO SCH (21:48)
[2016-11-10] MEDS: TAMSULOSIN 0.4 MG CAP.ER.24H PO SCH (21:48)
[2016-11-10] MEDS: SODIUM CHLORIDE 0.9% 1,000 ML IV SCH (21:49)
--- NOTE | 2016-11-10 22:42 | PN ---
DATE OF SERVICE: 11/10/2016 REASON FOR FOLLOWUP: Abnormal CT with a question of septic emboli versus metastatic disease. INTERVAL HISTORY: The patient is afebrile. The patient is status post bronchial biopsy by Dr. Polk. Patient tolerated the procedure. Patient denies significant chest pain or cough. No abdominal pain. No nausea, vomiting or any diarrhea. On examination, blood pressure is 108/53 with a pulse of 80, temperature 97.4. He is 94% on room air. General description is an elderly male up in the bed in no distress. RESPIRATORY SYSTEM: Unlabored breathing. Clear to auscultation anteriorly. HEART: S1, S2. Regular rate and rhythm. ABDOMEN: Soft. No tenderness. LABS: Hemoglobin 11, BUN of 15 with a creatinine of 1.15. Blood cultures remain negative. DIAGNOSTIC IMPRESSION AND PLAN: Patient with multiple nodules on the lungs with some cavitation; concern for possible metastatic disease. Clinically suspicion is low for septic emboli. Waiting for the cytology and the transbronchial culture as well as the biopsy. Continue the currently broad-spectrum antibiotic. Family was present at bedside. Their questions were answered.
[2016-11-11] MEDS: PIPERACILLIN-TAZOBACTAM 3.375 GM in DEXTROSE/WATER 1 50ML.BAG IVPB SCH ×3 (00:24→16:57)
[2016-11-11] MEDS: HEPARIN SODIUM,PORCINE 5,000 UNIT/ML 1 ML VIAL SQ SCH ×4 (00:26→22:59)
[2016-11-11] MEDS: HYDROcodone/APAP 7.5-325MG 1 EACH TAB PO SCH ×6 (01:09→20:39)
[2016-11-11] MEDS: HYDROmorphone 1 MG/ML 1 ML SYRINGE IVP PRN ×4 (01:56→22:52)
[2016-11-11] MEDS: SODIUM CHLORIDE 0.9% 1,000 ML IV SCH ×2 (05:26→23:32)
[2016-11-11] MEDS: VANCOMYCIN 1,750 MG in SODIUM CHLORIDE 0.9% 250 ML IVPB SCH (06:11)
[2016-11-11] MEDS: LEVOTHYROXINE 75 MCG TAB PO SCH (06:18)
[2016-11-11 07:14] LABS: Glucose,Whole Blood 137 mg/dL (75-99)
[2016-11-11] MEDS: IPRATROPIUM-ALBUTEROL 3 ML NEB INHALATION SCH ×4 (07:35→21:10)
[2016-11-11] MEDS: BUDESONIDE 0.5 MG/2 ML NEBU INHALATION SCH ×2 (07:35→21:10)
[2016-11-11] MEDS: LISINOPRIL 5 MG TAB PO SCH (07:46)
[2016-11-11] MEDS: METOLAZONE 2.5 MG TAB PO SCH (07:46)
[2016-11-11] MEDS: GABAPENTIN 300 MG CAP PO SCH ×2 (07:46→22:58)
[2016-11-11] MEDS: FLUoxetine HCL 10 MG CAP PO SCH (07:47)
[2016-11-11] MEDS: INSULIN LISPRO (humaLOG) 300 UNIT/3 ML VIAL SQ SCH ×4 (07:47→22:58)
[2016-11-11] MEDS: INSULIN GLARGINE 100 UNIT/ML 10 ML VIAL SQ SCH (07:54)
[2016-11-11] MEDS: metFORMIN 500 MG TAB PO SCH (07:57)
[2016-11-11 09:01] LABS: Anion Gap 8 mmol/L; Blood Urea Nitrogen 14 mg/dL (9-20); Calcium 8.9 mg/dL (8.4-10.2); Carbon Dioxide 26 mmol/L (22-30); Chloride 107 mmol/L (98-107); Glucose 132 mg/dL (74-99); Non-African American GFR(MDRD) >60 (>60 ml/min/1.73 sqM); Potassium 4.4 mmol/L (3.5-5.1); Sodium 141 mmol/L (137-145)
[2016-11-11 10:56] LABS: Basophils % (A) 0 %; CH 28.5; Eosinophils # (A) 0.5 k/uL (0-0.7); Eosinophils % (A) 6 %; HCT 29.6 % (39.0-53.0); HDW 2.66; Hypochromasia Marked; Luc # (Auto) 0.11; Luc % (Auto) 2; Lymphocytes # (A) 2.1 k/uL (1.0-4.8); Lymphocytes % (A) 27 %; MCH 28.9 pg (25.0-35.0); MCHC 30.3 g/dL (31.0-37.0); MCV 95.3 fL (80.0-100.0); Mean Platelet Volume 6.7; Monocytes # (A) 0.4 k/uL (0-1.0); Monocytes % (A) 5 %; Neutrophils # (A) 4.6 k/uL (1.3-7.7); Neutrophils % (A) 60 %; RBC 3.11 m/uL (4.30-5.90); WBC 7.6 k/uL (3.8-10.6)
--- NOTE | 2016-11-11 11:12 | FL ---
FLUOROSCOPY 27 seconds of fluoroscopy time were utilized during bronchoscopy. 1 images document the procedure.
[2016-11-11 12:09] LABS: Glucose,Whole Blood 189 mg/dL (75-99)
[2016-11-11] MEDS ORDERED: diphenhydrAMINE 50 MG/ML 1 ML VIAL IVP STA (12:58)
[2016-11-11] MEDS ORDERED: methylPREDNISolone SOD SUCCI 125 MG/2 ML VIAL IV STA (12:58)
[2016-11-11] MEDS ORDERED: FAMOTIDINE 20 MG/2 ML VIAL IV STA (12:58)
--- NOTE | 2016-11-11 13:51 | P.PN ---
Subjective This is a 86-year-old male who is being evaluated and examined today on the fifth floor. Patient was admitted to the hospital was suspicious of pneumonia and possible neoplasm as well. This patient has a significant history for severe COPD. The patient earlier this year was found to have squamous cell carcinoma of the scalp and underwent flap surgery at [facility]. The patient subsequently was hospitalized sometime around August this year with liver abscess. He is being treated by infectious disease services for long -term antibiotics. She was at home where he became more short of breath and was having intermittent abdominal pain and increased in the extent of his shortness of breath. A CT scan of the chest abdomen and pelvis was performed and was found to be abnormal with multiple lesions of the lungs varying in size from 1-1.5 cm as well as of a developing right-sided pleural effusion. Upon examination the patient does complain of some cough which is non-productive. On room air. His appetite continues to be marginal. Patient did undergo a bronchoscopy with lung biopsies results pending.. Objective - Vital Signs Vital signs: Vital Signs Temp 97.3 F L 11/11/16 07:00 Pulse 84 11/11/16 11:30 Resp 20 11/11/16 08:00 BP 121/57 11/11/16 07:00 Pulse Ox 97 11/11/16 07:00 Intake & Output 11/10/16 11/11/16 11/11/16 18:59 06:59 18:59 Intake Total 1380 725 240 Output Total 200 Balance 1380 725 40 Weight 107 kg 108.5 kg 108.5 kg Intake: IV 680 725 Piperacillin-Tazobactam 3 50 .375 gm In Dextrose/Water 1 50ml.bag @ 12.5 mls/hr IVPB Q8HR ANNIE Rx#: [id number] Sodium Chloride 0.9% 1, 480 675 000 ml @ 75 mls/hr IV . [id number] ANNIE Rx#:[id number] Intake, IV Titration 300 Amount Piperacillin-Tazobactam 3 50 .375 gm In Dextrose/Water 1 50ml.bag @ 12.5 mls/hr IVPB Q8HR ANNIE Rx#: [id number] Vancomycin 1,750 mg In 250 Sodium Chloride 0.9% 250 ml @ 125 mls/hr IVPB Q24H ANNIE Rx#:[id number] Oral 400 240 Output: Urine 200 Other: Voiding Method Toilet Toilet Toilet Urinal Urinal Urinal # Voids 3 1 1 # Bowel Movements 0 0 - Exam GENERAL EXAM: Alert, comfortable in no apparent distress. HEAD: Normocephalic. EYES: Normal reaction of pupils, equal size. NOSE: Clear with pink turbinates. THROAT: No erythema or exudates. NECK: No masses, no JVD. CHEST: No chest wall deformity. LUNGS: Equal air entry with no crackles, wheeze, rhonchi or dullness. Bases diminished CVS: S1 and S2 normal with no audible mumurs, regular rhythm. ABDOMEN: No hepatosplenomegaly, normal bowel sounds, no guarding or rigidity. EXTREMITIES: No edema noted, pedal pulses palpable. SKIN: No rashes CENTRAL NERVOUS SYSTEM: No focal deficits, tone is normal in all 4 extremities. - Labs CBC & Chem 7: 11/11/16 08:15 11/11/16 08:15 Labs: Abnormal Lab Results - Last 24 Hours (Table) 11/10/16 11/10/16 11/11/16 Range/Units 17:09 19:57 07:07 RBC (4.30-5.90) m/uL Hgb (13.0-17.5) gm/dL Hct (39.0-53.0) % MCHC (31.0-37.0) g/dL Glucose (74-99) mg/dL POC Glucose (mg/dL) 200 H 192 H 137 H (75-99) mg/dL 11/11/16 11/11/16 11/11/16 Range/Units 08:15 08:15 12:07 RBC 3.11 L (4.30-5.90) m/uL Hgb 9.0 L (13.0-17.5) gm/dL Hct 29.6 L (39.0-53.0) % MCHC 30.3 L (31.0-37.0) g/dL Glucose 132 H (74-99) mg/dL POC Glucose (mg/dL) 189 H (75-99) mg/dL Microbiology - Last 24 Hours (Table) 11/10/16 10:08 Gram Stain - Preliminary Bronchial Washings - Left Bronchial Washings Culture - Preliminary 11/04/16 19:35 Blood Culture - Final Blood No Growth after 144 hours 11/04/16 19:07 Blood Culture - Final Blood No Growth after 144 hours 11/10/16 10:08 Fungal Culture - Preliminary Bronchial Washings - Left 11/10/16 10:08 Acid Fast Bacilli Culture - Preliminary Bronchial Washings - Left Assessment and Plan Plan: Assessment Bilateral ulnar nodules with cavitation, concerning for septic emboli Right-sided pleural effusion, improved History is, cells cancer of the skin History of liver abscess Diabetes mellitus type 2 Hypertension Severe COPD History of obstructive sleep apnea Atrial flutter Moderate pericardial effusion Partial calcified is subcarinal and paraesophageal lymph nodes Plan Medications have been reviewed and will be continued as ordered. We will continue supplemental oxygen to maintain saturations greater than 88%. Continue with breathing treatments, pulmonary hygiene and supportive care. Continue to monitor the effusions. His post bronchoscopy with biopsies. Results pending. Continue with gentle hydration and monitor electrolytes. Patient should continue his CPAP nightly and when necessary. We will continue to monitor labs/results and adjust treatment as necessary. I performed an examination of the patient and discussed their management with the nurse practitioner. I have reviewed the nurse practitioner's note and agree with the documented findings and plan of care.
[2016-11-11] MEDS: BARIUM SULFATE 450 ML ORAL.SUSP BOTTLE PO PRN ×2 (15:06→18:09)
--- NOTE | 2016-11-11 16:29 | PN ---
SUBJECTIVE: An 86-year-old white male who is status post biopsy from multiple bronchoscopies. Patient continues current treatment at this time with multiple IV antibiotics and other medications, which will continue in the next 24 to 48 hours with current medical treatment to follow up as an outpatient. Vital signs stable. Afebrile. GI: Soft. HEMATOLOGIC: Negative Homans. NEUROLOGIC: Alert and oriented x3. PLAN: Continue current treatment for next 24 to 48 hours.
--- NOTE | 2016-11-11 17:09 | P.PN ---
Subjective Patient is an 86-year-old male referred from Dr. Bialey with medical history significant for previous liver abscess and squamous cell carcinoma of scalp. On this admission, patient was found to have evidence of bilateral pulmonary nodules with cavitation concerning for septic emboli, right-sided pleural effusion, and moderate pericardial effusion. Yesterday patient underwent bronchoscopy with bronchial alveolar lavage and transbronchial lung biopsy. Pathology pending. Patient tolerated procedure well. Upon exam, patient complains of mild nausea without vomiting. Denies abdominal pain. Patient is urinating without difficulty. Passing flatus with bowel movement yesterday. Afebrile. Objective - Vital Signs Vital signs: Vital Signs Temp 97.3 F L 11/11/16 07:00 Pulse 84 11/11/16 16:57 Resp 20 11/11/16 08:00 BP 121/57 11/11/16 07:00 Pulse Ox 97 11/11/16 07:00 Intake & Output 11/10/16 11/11/16 11/11/16 18:59 06:59 18:59 Intake Total 5866 721 6022 Output Total 200 Balance 1560 242 8506 Weight 107 kg 108.5 kg 108.5 kg Intake: IV 680 725 650 Piperacillin-Tazobactam 3 50 50 .375 gm In Dextrose/Water 1 50ml.bag @ 12.5 mls/hr IVPB Q8HR ANNIE Rx#: [id number] Sodium Chloride 0.9% 1, 480 675 600 000 ml @ 75 mls/hr IV . [id number] ANNIE Rx#:[id number] Intake, IV Titration 300 Amount Piperacillin-Tazobactam 3 50 .375 gm In Dextrose/Water 1 50ml.bag @ 12.5 mls/hr IVPB Q8HR ANNIE Rx#: [id number] Vancomycin 1,750 mg In 250 Sodium Chloride 0.9% 250 ml @ 125 mls/hr IVPB Q24H ANNIE Rx#:[id number] Oral 400 1040 Output: Urine 200 Other: Voiding Method Toilet Toilet Toilet Urinal Urinal Urinal # Voids 3 1 3 # Bowel Movements 0 0 - Exam GENERAL: Pt awake and alert, in no acute distress. LUNGS: Breath sounds diminished to auscultation bilaterally. No wheezes, rales , or rhonchi. HEART: Heart S1, S2, no S3 or S4. Regular rate and rhythm. No murmurs, rubs or gallops. ABDOMEN: Soft, nontender, mildly distended, normoactive bowel sounds. No guarding, no rebound. EXTREMITIES: 2+ peripheral pulses. No edema. NEUROLOGICAL: Pt oriented x 3. - Labs CBC & Chem 7: 11/11/16 08:15 11/11/16 08:15 Labs: Abnormal Lab Results - Last 24 Hours (Table) 11/10/16 11/10/16 11/11/16 Range/Units 17:09 19:57 07:07 RBC (4.30-5.90) m/uL Hgb (13.0-17.5) gm/dL Hct (39.0-53.0) % MCHC (31.0-37.0) g/dL Glucose (74-99) mg/dL POC Glucose (mg/dL) 200 H 192 H 137 H (75-99) mg/dL 11/11/16 11/11/16 11/11/16 Range/Units 08:15 08:15 12:07 RBC 3.11 L (4.30-5.90) m/uL Hgb 9.0 L (13.0-17.5) gm/dL Hct 29.6 L (39.0-53.0) % MCHC 30.3 L (31.0-37.0) g/dL Glucose 132 H (74-99) mg/dL POC Glucose (mg/dL) 189 H (75-99) mg/dL Microbiology - Last 24 Hours (Table) 11/10/16 10:08 Gram Stain - Preliminary Bronchial Washings - Left Bronchial Washings Culture - Preliminary 11/04/16 19:35 Blood Culture - Final Blood No Growth after 144 hours 11/04/16 19:07 Blood Culture - Final Blood No Growth after 144 hours 11/10/16 10:08 Fungal Culture - Preliminary Bronchial Washings - Left 11/10/16 10:08 Acid Fast Bacilli Culture - Preliminary Bronchial Washings - Left Assessment and Plan Plan: Impression: 1. Bilateral pulmonary nodules with cavitation, concerning for septic emboli versus metastasis.. 2. Right-sided pleural effusion, improving. 3. History of liver abscess. 4. History of squamous cancer of skin. Plan: Continue to monitor patient. Await result of lung biopsy. Continue supportive treatment and pain management. Continue to follow with consultants and medical service. The above impression and plan have been discussed and directed by Dr. Suh. Dao ALONSO acting as scribe for Dr. Suh.
[2016-11-11 17:36] LABS: Glucose,Whole Blood 179 mg/dL (75-99)
--- NOTE | 2016-11-11 20:10 | CT ---
EXAMINATION TYPE: CT abdomen pelvis w con DATE OF EXAM: 11/11/2016 7:28 PM COMPARISON: Previous exam CT chest abdomen pelvis 04 November 2016 HISTORY: Assess liver, hx of liver disease CT DLP: 1827 mGycm Automated exposure control for dose reduction was used. TECHNIQUE: Helical acquisition of images from the lung bases through the pelvis have been completed. CONTRAST: Performed with Oral Contrast and with IV Contrast, patient injected with 100 mL of Omnipaque 300. FINDINGS: LUNG BASES: Bilateral pleural effusions and associated atelectasis are present. Leads are present wit hin the heart right atrium and ventricle. Minimal pericardial fluid is present. Mitral annular calcif ication, coronary artery calcification is present. AORTA: No significant abnormality is appreciated. LIVER/GB: Mild prominence of intrahepatic biliary ducts likely due to postcholecystectomy change, fin dings are stable PANCREAS: Associated calcifications may be indicative of chronic pancreatitis. There is a calcificati on at the body of the pancreas, distal to this level there is pancreatic ductal dilatation as noted o n prior exam. SPLEEN: No significant abnormality is seen. ADRENALS: No significant abnormality is seen. KIDNEYS: No significant abnormality is seen. REPRODUCTIVE ORGANS: Stable BOWEL: Gastric diverticulum is present. There is no bowel obstruction. Nonspecific small bowel wall thickening could represent enteritis, question liquid filled sigmoid colon. Consider enteritis. Small anterior abdominal wall hernia is noted right lower quadrant containing bowel loop. FREE AIR: No Free Air visible. ASCITES: None visible. PELVIC ADENOPATHY: None visualized. RETROPERITONEAL ADENOPATHY: No Retroperitoneal Adenopathy visible. URINARY BLADDER: No significant abnormality is seen. OSSEOUS STRUCTURES: Stable IMPRESSION: BILATERAL PLEURAL EFFUSIONS. FINDINGS WITHIN THE BOWEL IS DESCRIBED. PANCREATIC DUCTAL DILATATION COU LD BE DUE TO STONE WITHIN THE PANCREATIC DUCT AT THE LEVEL OF THE BODY. LIVER SHOWS A STABLE APPEARAN CE. SMALL ANTERIOR ABDOMINAL WALL HERNIA TO THE RIGHT OF MIDLINE. THE LIVER SHOWS A STABLE APPEARANCE WITH PROBABLE ATROPHY OF THE LEFT LOBE, MINIMAL PNEUMOBILIA MAY BE PRESENT, MILD INTRAHEPATIC BILIAR Y DUCTAL DILATATION. TINY SUGGEST CHRONIC PANCREATITIS.
[2016-11-11 20:24] LABS: Glucose,Whole Blood 264 mg/dL (75-99)
[2016-11-11] MEDS: POTASSIUM CHLORIDE ER 20 MEQ TAB.ER PO SCH (20:39)
[2016-11-11] MEDS: FOLIC ACID 1 MG TAB PO SCH (20:39)
[2016-11-11] MEDS: FERROUS SULFATE 325 MG TAB PO SCH (20:40)
[2016-11-11] MEDS: MAGNESIUM OXIDE 400 MG TAB PO SCH (20:40)
[2016-11-11 22:56] LABS: Glucose,Whole Blood 335 mg/dL (75-99)
[2016-11-11] MEDS: PANTOPRAZOLE 40 MG TABLET PO SCH (22:58)
[2016-11-11] MEDS: TAMSULOSIN 0.4 MG CAP.ER.24H PO SCH (22:58)
[2016-11-11] MEDS: METOPROLOL TARTRATE 25 MG TAB PO SCH (22:59)
[2016-11-11 23:55] LABS: Appearance,Urine Clear (Clear); Bilirubin,Urine Negative (Negative); Glucose,Urine (UA) 3+ (Negative); Ketones,Urine Negative (Negative); Leukocyte Esterase,Urine Negative (Negative); Nitrite,Urine Negative (Negative); Protein,Urine Negative (Negative); Specific Gravity,Urine 1.032 (1.001-1.035); UA Billing (MACRO vs. MICRO) CHEM; Urobilinogen,Urine <2.0 mg/dL (<2.0)
[2016-11-12] MEDS: HYDROcodone/APAP 7.5-325MG 1 EACH TAB PO SCH ×6 (00:36→20:11)
[2016-11-12] MEDS: PIPERACILLIN-TAZOBACTAM 3.375 GM in DEXTROSE/WATER 1 50ML.BAG IVPB SCH ×3 (00:37→15:36)
[2016-11-12] MEDS: HYDROmorphone 1 MG/ML 1 ML SYRINGE IVP PRN ×3 (05:59→18:05)
[2016-11-12] MEDS: VANCOMYCIN 1,750 MG in SODIUM CHLORIDE 0.9% 250 ML IVPB SCH (06:00)
[2016-11-12] MEDS: LEVOTHYROXINE 75 MCG TAB PO SCH (06:32)
--- NOTE | 2016-11-12 07:29 | PN ---
DATE OF SERVICE: 11/11/2016 Reason for follow-up is a pulmonary nodule and liver nodules with question of septic emboli. INTERVAL HISTORY: The patient is afebrile. He has been breathing comfortably. Denies significant chest pain. Occasional cough. No abdominal pain. No nausea, vomiting or any diarrhea. On examination, blood pressure is 115/56 with a pulse of 70, temperature 97.4. He is 96% on room air. General description is an elderly male up in the chair in no distress. RESPIRATORY SYSTEM: Unlabored breathing. Clear to auscultation anteriorly. HEART: S1, S2. Regular rate and rhythm. ABDOMEN: Soft, no tenderness. LABS: Hemoglobin is 9 with white count 7.6 with BUN of 14, creatinine 1.04. Cultures so far negative. The pathology is pending. DIAGNOSTIC IMPRESSION AND PLAN: Patient with bilateral pulmonary nodule with cavitation and liver mass. Concern is high for possible malignancy, status post bronch. We are waiting for the biopsy to be confirmed. Continue current antibiotic therapy. Continue supportive care.
[2016-11-12 07:43] LABS: Glucose,Whole Blood 286 mg/dL (75-99)
[2016-11-12] MEDS: IPRATROPIUM-ALBUTEROL 3 ML NEB INHALATION SCH ×4 (07:45→21:19)
[2016-11-12] MEDS: BUDESONIDE 0.5 MG/2 ML NEBU INHALATION SCH ×2 (07:45→21:19)
[2016-11-12 07:46] LABS: Basophils % (A) 0 %; CH 28.4; CHCM 30.2; Eosinophils % (A) 0 %; HDW 2.58; HGB 8.8 gm/dL (13.0-17.5); Hypochromasia Moderate; Luc # (Auto) 0.03; Luc % (Auto) 1; Lymphocytes # (A) 0.7 k/uL (1.0-4.8); Lymphocytes % (A) 11 %; MCH 28.8 pg (25.0-35.0); MCHC 30.4 g/dL (31.0-37.0); MCV 94.6 fL (80.0-100.0); Mean Platelet Volume 6.8; Monocytes # (A) 0.2 k/uL (0-1.0); Monocytes % (A) 2 %; Neutrophils # (A) 5.4 k/uL (1.3-7.7); Neutrophils % (A) 86 %; RBC 3.07 m/uL (4.30-5.90); RDW 14.2 % (11.5-15.5); WBC 6.2 k/uL (3.8-10.6); WBC (Perox) 6.76
[2016-11-12 08:03] LABS: ALT 27 U/L (21-72); AST 30 U/L (17-59); Alkaline Phosphatase 163 U/L (38-126); Anion Gap 11 mmol/L; Blood Urea Nitrogen 19 mg/dL (9-20); Calcium 8.8 mg/dL (8.4-10.2); Carbon Dioxide 20 mmol/L (22-30); Chloride 107 mmol/L (98-107); Glucose 281 mg/dL (74-99); Non-African American GFR(MDRD) >60 (>60 ml/min/1.73 sqM); Sodium 138 mmol/L (137-145); Total Bilirubin 0.4 mg/dL (0.2-1.3); Total Protein 6.5 g/dL (6.3-8.2)
[2016-11-12] MEDS: HEPARIN SODIUM,PORCINE 5,000 UNIT/ML 1 ML VIAL SQ SCH ×2 (08:15→15:36)
[2016-11-12] MEDS: FLUoxetine HCL 10 MG CAP PO SCH (08:16)
[2016-11-12] MEDS: GABAPENTIN 300 MG CAP PO SCH ×2 (08:16→21:54)
[2016-11-12] MEDS: LISINOPRIL 5 MG TAB PO SCH (08:17)
[2016-11-12] MEDS: metFORMIN 500 MG TAB PO SCH (08:17)
[2016-11-12] MEDS: METOLAZONE 2.5 MG TAB PO SCH (08:18)
[2016-11-12] MEDS: INSULIN GLARGINE 100 UNIT/ML 10 ML VIAL SQ SCH (08:26)
[2016-11-12] MEDS: INSULIN LISPRO (humaLOG) 300 UNIT/3 ML VIAL SQ SCH ×4 (08:27→21:54)
[2016-11-12] MEDS: SODIUM CHLORIDE 0.9% 1,000 ML IV SCH (12:06)
[2016-11-12 12:38] LABS: Glucose,Whole Blood 307 mg/dL (75-99)
--- NOTE | 2016-11-12 14:43 | PN ---
An 86-year-old white male with pulmonary nodule, liver nodules, possible septic emboli. He is breathing better. He is status post bronchoscopy, we are awaiting bronchoscopy report. . CARDIOVASCULAR: S1, S2. LUNGS: Transmitted upper airway sounds. HEMATOLOGIC: Negative Homans. PSYCH: Fair mood and affect. NEUROLOGIC: Alert and oriented x3. ABDOMEN: Soft, nontender. VASCULAR: Normal dorsalis pedis, posterior tibial and radial pulses. BUN 14, creatinine 1.04. Possible lung cancer, metastatic, status post bronchoscopy await for biopsies. Bilateral pulmonary nodules, cavitation and liver mass ( ) current treatment. PLAN: Continue IV antibiotics, etc. Await for biopsy done and pathology report.
[2016-11-12] MEDS: MAGNESIUM OXIDE 400 MG TAB PO SCH (17:08)
[2016-11-12] MEDS: FOLIC ACID 1 MG TAB PO SCH (17:08)
[2016-11-12 17:09] LABS: Glucose,Whole Blood 170 mg/dL (75-99)
[2016-11-12] MEDS: POTASSIUM CHLORIDE ER 20 MEQ TAB.ER PO SCH (17:09)
[2016-11-12] MEDS: FERROUS SULFATE 325 MG TAB PO SCH (17:09)
--- NOTE | 2016-11-12 17:24 | PN ---
He was seen on 11/12/2016. He has been hemodynamically stable. He does not have any cough or shortness of breath. He has an occasional abdominal pain. On physical examination, his respiratory rate is 20, pulse rate of 70, temperature 97.5, blood pressure 122/56, O2 sat on room air is 97%. HEENT is unremarkable. Chest reveals decreased breath sounds at the bases. Cardiovascular system reveals an S1, S2. Abdomen is soft. There is trace pedal edema. IMPRESSION AT THIS TIME: 1. Multiple pulmonary nodules most likely secondary to septic emboli versus cancer, status post bronchoscopy. 2. Recent liver abscess. At this point in time, continue antibiotics. Increase his activity level. Maintain his nutrition. His prognosis at this time is fair.
[2016-11-12 21:19] LABS: Glucose,Whole Blood 199 mg/dL (75-99)
[2016-11-12] MEDS: PANTOPRAZOLE 40 MG TABLET PO SCH (21:54)
[2016-11-12] MEDS: TAMSULOSIN 0.4 MG CAP.ER.24H PO SCH (21:54)
[2016-11-12] MEDS: METOPROLOL TARTRATE 25 MG TAB PO SCH (22:37)
[2016-11-13] MEDS: PIPERACILLIN-TAZOBACTAM 3.375 GM in DEXTROSE/WATER 1 50ML.BAG IVPB SCH ×3 (00:10→15:53)
[2016-11-13] MEDS: HEPARIN SODIUM,PORCINE 5,000 UNIT/ML 1 ML VIAL SQ SCH ×3 (00:10→15:53)
[2016-11-13] MEDS: HYDROcodone/APAP 7.5-325MG 1 EACH TAB PO SCH ×6 (00:10→20:18)
[2016-11-13] MEDS: HYDROmorphone 1 MG/ML 1 ML SYRINGE IVP PRN ×3 (01:20→23:31)
[2016-11-13] MEDS: VANCOMYCIN 1,750 MG in SODIUM CHLORIDE 0.9% 250 ML IVPB SCH (05:45)
[2016-11-13] MEDS: SODIUM CHLORIDE 0.9% 1,000 ML IV SCH ×2 (05:45→11:55)
[2016-11-13] MEDS: LEVOTHYROXINE 75 MCG TAB PO SCH (06:23)
[2016-11-13 07:42] LABS: Glucose,Whole Blood 171 mg/dL (75-99)
[2016-11-13] MEDS: GABAPENTIN 300 MG CAP PO SCH ×2 (07:56→20:19)
[2016-11-13] MEDS: metFORMIN 500 MG TAB PO SCH (07:56)
[2016-11-13] MEDS: METOLAZONE 2.5 MG TAB PO SCH (07:57)
[2016-11-13] MEDS: LISINOPRIL 5 MG TAB PO SCH (07:57)
[2016-11-13] MEDS: INSULIN GLARGINE 100 UNIT/ML 10 ML VIAL SQ SCH (08:02)
[2016-11-13] MEDS: INSULIN LISPRO (humaLOG) 300 UNIT/3 ML VIAL SQ SCH ×4 (08:03→20:23)
--- NOTE | 2016-11-13 08:03 | PN ---
DATE OF SERVICE: 11/12/2016 Reason for follow-up is multiple pulmonary nodules . INTERVAL HISTORY: The patient is afebrile. Has been breathing comfortably. The patient denies having any chest pain or cough. No abdominal pain or any diarrhea. On examination, blood pressure 133/66 with a pulse of 69, temperature 97.4. He is 98% on room air. General description is an elderly male lying in bed in no distress. RESPIRATORY SYSTEM: Unlabored breathing. Clear to auscultation anteriorly. HEART: S1, S2. Regular rate and rhythm. ABDOMEN: Soft, no tenderness. LABS: Hemoglobin 8.8, white count 6.2 with a BUN of 19, creatinine 1.08. DIAGNOSTIC IMPRESSION AND PLAN: Patient with multiple pulmonary nodules with cavitation, concern for possible malignancy, less likely septic emboli waiting for the histopathology, cultures negative so far. He did have CT of abdomen and pelvis, which did not show any liver abnormality. Continue Zosyn and Vanco. At this point, continue supportive care. KIM
[2016-11-13 08:07] LABS: Basophils % (A) 0 %; CHCM 31.3; Eosinophils # (A) 0.1 k/uL (0-0.7); Eosinophils % (A) 2 %; HCT 28.5 % (39.0-53.0); HDW 2.73; Hypochromasia Slight; Luc # (Auto) 0.18; Luc % (Auto) 2; Lymphocytes # (A) 1.7 k/uL (1.0-4.8); Lymphocytes % (A) 23 %; MCH 29.4 pg (25.0-35.0); MCHC 31.6 g/dL (31.0-37.0); Mean Platelet Volume 7.1; Monocytes # (A) 0.4 k/uL (0-1.0); Monocytes % (A) 6 %; Neutrophils # (A) 5.1 k/uL (1.3-7.7); Neutrophils % (A) 68 %; RBC 3.06 m/uL (4.30-5.90); RDW 14.4 % (11.5-15.5); WBC 7.5 k/uL (3.8-10.6); WBC (Perox) 7.75
[2016-11-13] MEDS: IPRATROPIUM-ALBUTEROL 3 ML NEB INHALATION SCH ×4 (08:14→19:12)
[2016-11-13] MEDS: BUDESONIDE 0.5 MG/2 ML NEBU INHALATION SCH ×2 (08:14→19:12)
[2016-11-13 08:21] LABS: ALT 32 U/L (21-72); AST 30 U/L (17-59); Alkaline Phosphatase 149 U/L (38-126); Anion Gap 10 mmol/L; Blood Urea Nitrogen 20 mg/dL (9-20); Calcium 9.1 mg/dL (8.4-10.2); Carbon Dioxide 23 mmol/L (22-30); Chloride 107 mmol/L (98-107); Glucose 179 mg/dL (74-99); Non-African American GFR(MDRD) >60 (>60 ml/min/1.73 sqM); Potassium 4.5 mmol/L (3.5-5.1); Sodium 140 mmol/L (137-145); Total Bilirubin 0.4 mg/dL (0.2-1.3); Total Protein 6.3 g/dL (6.3-8.2)
[2016-11-13] MEDS: FLUoxetine HCL 10 MG CAP PO SCH (08:28)
[2016-11-13 08:53] LABS: Amylase 39 U/L (30-110)
[2016-11-13 12:13] LABS: Glucose,Whole Blood 226 mg/dL (75-99)
--- NOTE | 2016-11-13 12:46 | PN ---
DATE OF SERVICE: 11/13/2016 He has been hemodynamically stable. He does not complain of any cough or shortness of breath. He has no abdominal pain. On physical examination, respiratory rate 17, pulse rate of 70, temperature 97.7, blood pressure 144/70, O2 sat is 96% on room air. HEENT is unremarkable. Chest is clear. Cardiovascular system reveals an S1, S2. Abdomen is soft. There is no edema. IMPRESSION: 1. Multiple pulmonary nodules secondary to septic emboli is likely versus cancer, status post bronchoscopy. Await biopsies and cytology. 2. Recent liver abscess. Continue antibiotics. Increase his activity level. Maintain his nutrition. His prognosis at this time is fair.
[2016-11-13 17:06] LABS: Glucose,Whole Blood 148 mg/dL (75-99)
[2016-11-13] MEDS: FERROUS SULFATE 325 MG TAB PO SCH (17:12)
[2016-11-13] MEDS: POTASSIUM CHLORIDE ER 20 MEQ TAB.ER PO SCH (17:12)
[2016-11-13] MEDS: MAGNESIUM OXIDE 400 MG TAB PO SCH (17:12)
[2016-11-13] MEDS: FOLIC ACID 1 MG TAB PO SCH (17:12)
[2016-11-13] MEDS: PANTOPRAZOLE 40 MG TABLET PO SCH (20:19)
[2016-11-13] MEDS: TAMSULOSIN 0.4 MG CAP.ER.24H PO SCH (20:19)
[2016-11-13] MEDS: METOPROLOL TARTRATE 25 MG TAB PO SCH (20:20)
[2016-11-13 20:25] LABS: Glucose,Whole Blood 192 mg/dL (75-99)
[2016-11-14] MEDS: HEPARIN SODIUM,PORCINE 5,000 UNIT/ML 1 ML VIAL SQ SCH ×4 (00:02→23:30)
[2016-11-14] MEDS: HYDROcodone/APAP 7.5-325MG 1 EACH TAB PO SCH ×7 (00:02→23:30)
[2016-11-14] MEDS: PIPERACILLIN-TAZOBACTAM 3.375 GM in DEXTROSE/WATER 1 50ML.BAG IVPB SCH ×4 (00:02→23:30)
[2016-11-14] MEDS ORDERED: VANCOMYCIN TROUGH DUE 1 EACH MISC MISCELLANE ONE (05:00)
[2016-11-14] MEDS: VANCOMYCIN 1,750 MG in SODIUM CHLORIDE 0.9% 250 ML IVPB SCH (05:55)
[2016-11-14] MEDS: HYDROmorphone 1 MG/ML 1 ML SYRINGE IVP PRN (05:55)
[2016-11-14] MEDS: LEVOTHYROXINE 75 MCG TAB PO SCH (06:05)
--- NOTE | 2016-11-14 07:27 | PN ---
SUBJECTIVE: This is an 86-year-old white male with abdominal pain, COPD, status post bronchoscopy, awaiting pathology report, When pathology report is back, the patient will continue with current treatment with IV antibiotics in the meantime and plan of attack will be based on what we find Monday on the pathology report. CARDIOVASCULAR: S1 and S2. LUNGS: Clear. GI: Distended, obese, tenderness is diffuse. ASSESSMENT: 1. Sepsis, septic emboli versus metastatic squamous cell versus cholangiocarcinoma. 2. Chronic obstructive pulmonary disease exacerbation. 3. History of liver abscess. 4. Coronary artery disease. 5. Hypertension. 6. Lumbar disc disease. Continue with IV antibiotics. Await biopsy reports and see further orders.
[2016-11-14] MEDS: IPRATROPIUM-ALBUTEROL 3 ML NEB INHALATION SCH ×4 (07:41→20:08)
[2016-11-14] MEDS: BUDESONIDE 0.5 MG/2 ML NEBU INHALATION SCH ×2 (07:41→20:08)
--- NOTE | 2016-11-14 07:48 | PN ---
DATE OF SERVICE: 11/13/2016 Reason for follow-up is abnormal CT, pulmonary nodules and question of septic emboli versus malignancy. INTERVAL HISTORY: The patient is afebrile, has been breathing comfortably. Denies significant chest pain. Occasional cough. No abdominal pain. No nausea, vomiting or any diarrhea. On examination, blood pressure is 118/60 with a pulse of 72, temperature 96.8. He is 99% on room air. General description is an elderly male, lying in bed in no distress. RESPIRATORY SYSTEM: Unlabored breathing. Clear to auscultation. HEART: S1, S2 regular rate and rhythm. ABDOMEN: Soft, no tenderness. LABS: Hemoglobin is 9, white count 7.5. BUN of 23, creatinine 1.14. So far bronch cultures remain to be negative. DIAGNOSTIC IMPRESSION AND PLAN: Patient with multiple pulmonary nodules with cavitation with high concern for malignancy. Waiting for the biopsy to confirm. Cultures so far negative. Currently on broad-spectrum antibiotics as no methicillin-resistant Staphylococcus aureus has been noted. Discontinue the vancomycin and keep the patient on Zosyn. Continue supportive care. MTDD
[2016-11-14] MEDS: SODIUM CHLORIDE 0.9% 1,000 ML IV SCH ×2 (08:24→17:19)
[2016-11-14 08:26] LABS: Mis test requested (Non-blood) Pneumocytis by DFA
[2016-11-14] MEDS: METOLAZONE 2.5 MG TAB PO SCH (08:28)
[2016-11-14] MEDS: FLUoxetine HCL 10 MG CAP PO SCH (08:28)
[2016-11-14] MEDS: metFORMIN 500 MG TAB PO SCH (08:28)
[2016-11-14] MEDS: LISINOPRIL 5 MG TAB PO SCH (08:28)
[2016-11-14] MEDS: GABAPENTIN 300 MG CAP PO SCH ×2 (08:28→20:54)
[2016-11-14] MEDS: INSULIN LISPRO (humaLOG) 300 UNIT/3 ML VIAL SQ SCH ×4 (09:19→20:54)
[2016-11-14] MEDS: INSULIN GLARGINE 100 UNIT/ML 10 ML VIAL SQ SCH (09:22)
[2016-11-14] MEDS: IBUPROFEN 200 MG TAB PO PRN ×2 (10:52→17:23)
[2016-11-14 11:21] LABS: Glucose,Whole Blood 313 mg/dL (75-99)
--- NOTE | 2016-11-14 14:56 | P.PN ---
Subjective This is a 86-year-old male who is being evaluated and examined today on the fifth floor. Patient was admitted to the hospital was suspicious of pneumonia and possible neoplasm as well. This patient has a significant history for severe COPD. 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 The patient subsequently was hospitalized sometime around August this year with liver abscess. He is being treated by infectious disease services for long -term antibiotics. She was at home where he became more short of breath and was having intermittent abdominal pain and increased in the extent of his shortness of breath. A CT scan of the chest abdomen and pelvis was performed and was found to be abnormal with multiple lesions of the lungs varying in size from 1-1.5 cm as well as of a developing right-sided pleural effusion. Upon examination the patient does complain of some coughing which is non-productive which appears chronic. On room air. His appetite continues to be marginal. Patient did undergo a bronchoscopy with lung biopsies results pending. patient making good urine output. Objective - Vital Signs Vital signs: Vital Signs Temp 96.7 F L 11/14/16 07:00 Pulse 72 11/14/16 08:00 Resp 20 11/14/16 08:00 BP 117/68 11/14/16 07:00 Pulse Ox 99 11/14/16 07:41 Intake & Output 11/13/16 11/14/16 11/14/16 18:59 06:59 18:59 Intake Total 1900 950 Output Total 424 Balance 1476 950 Weight 113.5 kg 114 kg Intake: IV 700 950 Piperacillin-Tazobactam 3 50 50 .375 gm In Dextrose/Water 1 50ml.bag @ 12.5 mls/hr IVPB Q8HR [facility] Rx#: [id number] Sodium Chloride 0.9% 1, 650 900 000 ml @ 75 mls/hr IV . [id number] [facility] Rx#:[id number] Oral 1200 Output: Urine 420 Stool 4 Other: Voiding Method Toilet Toilet Toilet Urinal # Voids 1 - Exam GENERAL EXAM: Alert, comfortable in no apparent distress. HEAD: Normocephalic. EYES: Normal reaction of pupils, equal size. NOSE: Clear with pink turbinates. THROAT: No erythema or exudates. NECK: No masses, no JVD. CHEST: No chest wall deformity. LUNGS: Equal air entry with no crackles, wheeze, rhonchi or dullness. Bases diminished CVS: S1 and S2 normal with no audible mumurs, regular rhythm. ABDOMEN: No hepatosplenomegaly, normal bowel sounds, no guarding or rigidity. EXTREMITIES: No edema noted, pedal pulses palpable. SKIN: No rashes CENTRAL NERVOUS SYSTEM: No focal deficits, tone is normal in all 4 extremities. - Labs CBC & Chem 7: 11/13/16 07:36 11/13/16 07:36 Labs: Abnormal Lab Results - Last 24 Hours (Table) 11/13/16 11/13/16 11/13/16 Range/Units 12:10 17:04 20:22 POC Glucose (mg/dL) 226 H 148 H 192 H (75-99) mg/dL 11/14/16 Range/Units 11:19 POC Glucose (mg/dL) 313 H (75-99) mg/dL Assessment and Plan Plan: Assessment Bilateral ulnar nodules with cavitation, concerning for septic emboli Right-sided pleural effusion, improved History is, cells cancer of the skin History of liver abscess Diabetes mellitus type 2 Hypertension Severe COPD History of obstructive sleep apnea Atrial flutter Moderate pericardial effusion Partial calcified is subcarinal and paraesophageal lymph nodes Plan Medications have been reviewed and will be continued as ordered. We will continue supplemental oxygen to maintain saturations greater than 88%. Continue with breathing treatments, pulmonary hygiene and supportive care. Continue to monitor the effusions. His post bronchoscopy with biopsies. Results pending. Continue with gentle hydration and monitor electrolytes. Patient should continue his CPAP nightly and when necessary. Encourage good nutrition as well as increase activity. We will continue to monitor labs/ results and adjust treatment as necessary. I performed an examination of the patient and discussed their management with the nurse practitioner. I have reviewed the nurse practitioner's note and agree with the documented findings and plan of care.
--- NOTE | 2016-11-14 16:00 | P.PN ---
Subjective 86-year-old male being seen this morning . Status post bronch done For workup of bilateral multiple lung nodules. no new events noted during the night [facility] Objective - Vital Signs Vital signs: Vital Signs Temp 96.7 F L 11/14/16 07:00 Pulse 77 11/14/16 13:25 Resp 20 11/14/16 08:00 BP 117/68 11/14/16 07:00 Pulse Ox 94 L 11/14/16 13:25 Intake & Output 11/13/16 11/14/16 11/14/16 18:59 06:59 18:59 Intake Total 1900 950 905 Output Total 424 Balance 1476 950 905 Weight 113.5 kg 114 kg Intake: IV 700 950 425 Piperacillin-Tazobactam 3 50 50 50 .375 gm In Dextrose/Water 1 50ml.bag @ 12.5 mls/hr IVPB Q8HR ANNIE Rx#: [id number] Sodium Chloride 0.9% 1, 650 900 375 000 ml @ 75 mls/hr IV . [id number] [facility] Rx#:[id number] Oral 1200 480 Output: Urine 420 Stool 4 Other: Voiding Method Toilet Toilet Toilet Urinal # Voids 1 3 # Bowel Movements 1 - Exam Physical exam 86-year-old male sitting up on the edge of bed. Nothing by mouth aware of the plan for bronchoscopic this morning. Denies any chest pain dizziness lightheadedness or abdominal pain lungs essentially clear adequate air movement cough noted Heart S1-S2 audible regular no murmur noted denying chest pain Abdomen soft nontender not distended reports of nausea vomiting Extremities no edema - Labs CBC & Chem 7: 11/13/16 07:36 11/13/16 07:36 Labs: Abnormal Lab Results - Last 24 Hours (Table) 11/13/16 11/13/16 11/14/16 Range/Units 17:04 20:22 11:19 POC Glucose (mg/dL) 148 H 192 H 313 H (75-99) mg/dL Microbiology - Last 24 Hours (Table) 11/10/16 10:08 Fungal Culture - Preliminary Bronchial Washings - Left Elle albicans Assessment and Plan Plan: Impression Bilateral pulmonary nodules with cavitation, concerning for septic emboli. Right-sided pleural effusion, improving. Thoracentesis was cancelled. . History of liver abscess. . History of squamous cancer of skin and scalp. 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 surgery of the scalp at [facility] Type 2 diabetes Obstructive sleep apnea with the use of CPAP therapy Moderate pericardial effusion Partial calcified is subcarinal and paraesophageal lymph nodes History of liver abscess Bilateral pulmonary nodules with cavitation Status post bronchoscopic be with transbronchial lung biopsy from the left lower lobe and bronchial alveolar process Plan Follow up on the biopsies from the left lower lobe Continue recommendations by pulmonology Continue recommendations by surgical service DVT and GI prophylaxis Further recommendations pending The above dictated assessment and findings were discussed with dr erazo Impression and the plan of care have been dictated as directed. Adore Hightower nurse practitioner acting as a scribe for dr erazo
[2016-11-14 16:35] LABS: Glucose,Whole Blood 105 mg/dL (75-99)
[2016-11-14] MEDS: FERROUS SULFATE 325 MG TAB PO SCH (17:21)
[2016-11-14] MEDS: POTASSIUM CHLORIDE ER 20 MEQ TAB.ER PO SCH (17:21)
[2016-11-14] MEDS: FOLIC ACID 1 MG TAB PO SCH (17:21)
[2016-11-14] MEDS: MAGNESIUM OXIDE 400 MG TAB PO SCH (17:21)
[2016-11-14] MEDS: ONDANSETRON 4 MG/2 ML VIAL IVP PRN (20:02)
[2016-11-14] MEDS: PANTOPRAZOLE 40 MG TABLET PO SCH (20:02)
[2016-11-14] MEDS: TAMSULOSIN 0.4 MG CAP.ER.24H PO SCH (20:02)
[2016-11-14 20:31] LABS: Glucose,Whole Blood 132 mg/dL (75-99)
[2016-11-14] MEDS: METOPROLOL TARTRATE 25 MG TAB PO SCH (20:54)
[2016-11-15] MEDS: ONDANSETRON 4 MG/2 ML VIAL IVP PRN (01:56)
[2016-11-15] MEDS: HYDROcodone/APAP 7.5-325MG 1 EACH TAB PO SCH ×6 (04:51→20:50)
[2016-11-15] MEDS: LEVOTHYROXINE 75 MCG TAB PO SCH (06:11)
--- NOTE | 2016-11-15 06:56 | PN ---
DATE OF SERVICE: 11/14/2016 Reason for followup is abnormal CT of the chest with a question of septic emboli versus malignancy. INTERVAL HISTORY: The patient is afebrile. Has been complaining of some shortness of breath today, however, denies any significant chest pain or cough. No abdominal pain, no nausea, vomiting or any diarrhea. On examination, blood pressure 116/55 with a pulse of 84, temperature 97.4. HE is 96% on room air. General description is an elderly male, lying in bed in no distress. RESPIRATORY SYSTEM: Unlabored breathing. Clear to auscultation anteriorly. HEART: S1, S2. Regular rate and rhythm. ABDOMEN: Soft, no tenderness. LABS: Culture remained to be negative except some Elle species. Bronch cytology was negative for any malignant cells though the biopsy was nondiagnostic. DIAGNOSTIC IMPRESSION AND PLAN: Patient with multiple nodules with a question of septic emboli versus malignancy. The patient though not behaving as septic emboli with no fever, no positive blood culture or elevated white count. Status post bronchoscopy, which was nondiagnostic. Will discuss further with Pulmonary. Continue the patient on current antibiotic in the form of Zosyn. Overall prognosis remains to be guarded. MTDD
[2016-11-15 07:14] LABS: Glucose,Whole Blood 160 mg/dL (75-99)
[2016-11-15] MEDS: SODIUM CHLORIDE 0.9% 1,000 ML IV SCH (07:51)
[2016-11-15] MEDS: INSULIN LISPRO (humaLOG) 300 UNIT/3 ML VIAL SQ SCH ×4 (08:03→20:54)
[2016-11-15] MEDS: HEPARIN SODIUM,PORCINE 5,000 UNIT/ML 1 ML VIAL SQ SCH ×2 (08:03→16:40)
[2016-11-15] MEDS: PIPERACILLIN-TAZOBACTAM 3.375 GM in DEXTROSE/WATER 1 50ML.BAG IVPB SCH ×2 (08:07→16:38)
[2016-11-15] MEDS: GABAPENTIN 300 MG CAP PO SCH ×2 (08:07→20:50)
[2016-11-15] MEDS: INSULIN GLARGINE 100 UNIT/ML 10 ML VIAL SQ SCH (08:10)
[2016-11-15] MEDS: metFORMIN 500 MG TAB PO SCH (08:11)
[2016-11-15] MEDS: METOLAZONE 2.5 MG TAB PO SCH (08:11)
[2016-11-15] MEDS: FLUoxetine HCL 10 MG CAP PO SCH (08:11)
[2016-11-15] MEDS: LISINOPRIL 5 MG TAB PO SCH (08:12)
[2016-11-15] MEDS: IPRATROPIUM-ALBUTEROL 3 ML NEB INHALATION SCH ×4 (09:21→20:40)
[2016-11-15] MEDS: BUDESONIDE 0.5 MG/2 ML NEBU INHALATION SCH ×2 (09:21→20:40)
[2016-11-15 11:13] LABS: Glucose,Whole Blood 188 mg/dL (75-99)
--- NOTE | 2016-11-15 12:43 | P.PN ---
Subjective This is a 86-year-old male who is being evaluated and examined today on the fifth floor. Patient was admitted to the hospital was suspicious of pneumonia and possible neoplasm as well. This patient has a significant history for severe COPD. 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. The patient subsequently was hospitalized sometime around August this year with liver abscess. He is being treated by infectious disease services for long -term antibiotics. She was at home where he became more short of breath and was having intermittent abdominal pain and increased in the extent of his shortness of breath. A CT scan of the chest abdomen and pelvis was performed and was found to be abnormal with multiple lesions of the lungs varying in size from 1-1.5 cm as well as of a developing right-sided pleural effusion. Upon examination the patient does complain of some coughing which is non-productive which appears chronic. On room air. His appetite continues to be marginal. Patient did undergo a bronchoscopy with lung biopsies results non diagnostic. Dr. Polk personally spoke with cardiothoraic surgeon and would like the patient to undergo a VATS procedure. Patient making good urine output. Patient states he is not feeling himself today. Objective - Vital Signs Vital signs: Vital Signs Temp 97.5 F L 11/15/16 07:00 Pulse 77 11/15/16 09:33 Resp 20 11/15/16 08:00 BP 102/54 11/15/16 07:00 Pulse Ox 96 11/15/16 07:00 Intake & Output 11/14/16 11/15/16 11/15/16 18:59 06:59 18:59 Intake Total 905 525 Output Total 421 1 Balance 484 525 -1 Weight 114 kg 106.5 kg Intake: IV 425 525 Piperacillin-Tazobactam 3 50 75 .375 gm In Dextrose/Water 1 50ml.bag @ 12.5 mls/hr IVPB Q8HR [facility] Rx#: [id number] Sodium Chloride 0.9% 1, 375 450 000 ml @ 75 mls/hr IV . [id number] [facility] Rx#:[id number] Oral 480 Output: Urine 420 Stool 1 1 Other: Voiding Method Toilet Toilet Toilet # Voids 3 # Bowel Movements 1 - Exam GENERAL EXAM: Alert, comfortable in no apparent distress. HEAD: Normocephalic. EYES: Normal reaction of pupils, equal size. NOSE: Clear with pink turbinates. THROAT: No erythema or exudates. NECK: No masses, no JVD. CHEST: No chest wall deformity. LUNGS: Equal air entry with no crackles, wheeze, rhonchi or dullness. Bases diminished CVS: S1 and S2 normal with no audible mumurs, regular rhythm. ABDOMEN: No hepatosplenomegaly, normal bowel sounds, no guarding or rigidity. EXTREMITIES: No edema noted, pedal pulses palpable. SKIN: No rashes CENTRAL NERVOUS SYSTEM: No focal deficits, tone is normal in all 4 extremities. - Labs CBC & Chem 7: 11/13/16 07:36 11/13/16 07:36 Labs: Abnormal Lab Results - Last 24 Hours (Table) 11/14/16 11/14/16 11/15/16 Range/Units 16:33 20:17 07:00 POC Glucose (mg/dL) 105 H 132 H 160 H (75-99) mg/dL 11/15/16 Range/Units 11:00 POC Glucose (mg/dL) 188 H (75-99) mg/dL Microbiology - Last 24 Hours (Table) 11/10/16 10:08 Fungal Culture - Preliminary Bronchial Washings - Left Elle albicans Assessment and Plan Plan: Assessment Bilateral ulnar nodules with cavitation, concerning for septic emboli Right-sided pleural effusion, improved History is, cells cancer of the skin History of liver abscess Diabetes mellitus type 2 Hypertension Severe COPD History of obstructive sleep apnea Atrial flutter Moderate pericardial effusion Partial calcified is subcarinal and paraesophageal lymph nodes Plan Medications have been reviewed and will be continued as ordered. We will continue supplemental oxygen to maintain saturations greater than 88%. Continue with breathing treatments, pulmonary hygiene and supportive care. Continue to monitor the effusions. His post bronchoscopy with biopsies. Results pending. Continue with gentle hydration and monitor electrolytes. Patient should continue his CPAP nightly and when necessary. Encourage good nutrition as well as increase activity. Cardiothoracic surgoen to eval patient and possible VATS procedure. We will continue to monitor labs/results and adjust treatment as necessary. I performed an examination of the patient and discussed their management with the nurse practitioner. I have reviewed the nurse practitioner's note and agree with the documented findings and plan of care.
--- NOTE | 2016-11-15 15:32 | P.PN ---
Subjective 86-year-old being seen and examined. Currently sitting up in a chair. There's been no new events. Patient is to be seen by a thoracic surgeon at the request of Dr. Polk pulmonology. Dr. Polk pulmonology is requesting the patient to be evaluated for a possible VATS procedure. Patient states his breathing feels improved. Chief complaint "abdominal bloating. Patient did undergo bronchoscopic be with biopsies by Dr. polk the results were nondiagnostic Objective - Vital Signs Vital signs: Vital Signs Temp 98 F 11/15/16 14:23 Pulse 88 11/15/16 14:23 Resp 20 11/15/16 14:23 BP 110/58 11/15/16 14:23 Pulse Ox 94 L 11/15/16 14:23 Intake & Output 11/14/16 11/15/16 11/15/16 18:59 06:59 18:59 Intake Total 905 525 Output Total 421 1 Balance 484 525 -1 Weight 114 kg 106.5 kg Intake: IV 425 525 Piperacillin-Tazobactam 3 50 75 .375 gm In Dextrose/Water 1 50ml.bag @ 12.5 mls/hr IVPB Q8HR [facility] Rx#: [id number] Sodium Chloride 0.9% 1, 375 450 000 ml @ 75 mls/hr IV . [id number] [facility] Rx#:[id number] Oral 480 Output: Urine 420 Stool 1 1 Other: Voiding Method Toilet Toilet Toilet # Voids 3 2 # Bowel Movements 1 - Exam Physical exam 86-year-old male sitting up in a chair Denies any chest pain dizziness lightheadedness or abdominal pain lungs essentially clear adequate air movement cough noted sats are 94% on 4 L Heart S1-S2 audible regular no murmur noted denying chest pain Abdomen soft nontender not distended reports of nausea vomiting Extremities no edema - Labs CBC & Chem 7: 11/13/16 07:36 11/13/16 07:36 Labs: Abnormal Lab Results - Last 24 Hours (Table) 11/14/16 11/14/16 11/15/16 Range/Units 16:33 20:17 07:00 POC Glucose (mg/dL) 105 H 132 H 160 H (75-99) mg/dL 11/15/16 Range/Units 11:00 POC Glucose (mg/dL) 188 H (75-99) mg/dL Microbiology - Last 24 Hours (Table) 11/10/16 10:08 Fungal Culture - Preliminary Bronchial Washings - Left Elle albicans Assessment and Plan Plan: Impression Bilateral pulmonary nodules with cavitation, concerning for septic emboli. Right-sided pleural effusion, improving. Thoracentesis was cancelled. . History of liver abscess. . History of squamous cancer of skin and scalp. 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 surgery of the scalp at [facility] Type 2 diabetes Obstructive sleep apnea with the use of CPAP therapy Moderate pericardial effusion Partial calcified is subcarinal and paraesophageal lymph nodes History of liver abscess Bilateral pulmonary nodules with cavitation Status post bronchoscopic be with transbronchial lung biopsy from the left lower lobe and bronchial alveolar process lung biopsies nondiagnostic Plan Continue recommendations by pulmonology requesting cardiovascular surgery for possible VATS procedure DVT and GI prophylaxis Further recommendations pending The above dictated assessment and findings were discussed with dr kacey Pandey and the plan of care have been dictated as directed. Adore Hightower nurse practitioner acting as a scribe for dr erazo
[2016-11-15] MEDS: FERROUS SULFATE 325 MG TAB PO SCH (16:40)
[2016-11-15] MEDS: POTASSIUM CHLORIDE ER 20 MEQ TAB.ER PO SCH (16:40)
[2016-11-15] MEDS: MAGNESIUM OXIDE 400 MG TAB PO SCH (16:40)
[2016-11-15] MEDS: FOLIC ACID 1 MG TAB PO SCH (16:40)
--- NOTE | 2016-11-15 16:42 | P.PN ---
Subjective Principal diagnosis: Lung nodules, status post bronchoscopy. Patient currently ambulating in the hallway in no apparent distress. Denies pain at this time. Denies shortness of breath at this time. Objective - Vital Signs Vital signs: Vital Signs Temp 98 F 11/15/16 14:23 Pulse 76 11/15/16 16:31 Resp 20 11/15/16 14:23 BP 110/58 11/15/16 14:23 Pulse Ox 94 L 11/15/16 14:23 Intake & Output 11/14/16 11/15/16 11/15/16 18:59 06:59 18:59 Intake Total 905 525 Output Total 421 1 Balance 484 525 -1 Weight 114 kg 106.5 kg Intake: IV 425 525 Piperacillin-Tazobactam 3 50 75 .375 gm In Dextrose/Water 1 50ml.bag @ 12.5 mls/hr IVPB Q8HR [facility] Rx#: [id number] Sodium Chloride 0.9% 1, 375 450 000 ml @ 75 mls/hr IV . [id number] [facility] Rx#:[id number] Oral 480 Output: Urine 420 Stool 1 1 Other: Voiding Method Toilet Toilet Toilet # Voids 3 2 # Bowel Movements 1 - Constitutional General appearance: Present: cooperative, no acute distress - Respiratory Details: Lungs sounds diminished bilaterally. Respirations even, nonlabored. Currently on room air - Cardiovascular Details: S1, S2 present. Regular rate and rhythm. 3+ bilateral lower extremity edema present. - Gastrointestinal Gastrointestinal Comment(s): Abdomen soft, nontender, nondistended. Active bowel sounds 4 quadrants. Tolerating diet. - Genitourinary Genitourinary Comment(s): Voiding clear, yellow urine. - Musculoskeletal Musculoskeletal: Present: gait normal, strength equal bilaterally - Psychiatric Psychiatric: Present: A&O x's 3, appropriate affect, intact judgment & insight - Allied health notes Allied health notes reviewed: nursing - Labs CBC & Chem 7: 11/13/16 07:36 11/13/16 07:36 Labs: Abnormal Lab Results - Last 24 Hours (Table) 11/14/16 11/15/16 11/15/16 Range/Units 20:17 07:00 11:00 POC Glucose (mg/dL) 132 H 160 H 188 H (75-99) mg/dL Microbiology - Last 24 Hours (Table) 11/10/16 10:08 Fungal Culture - Preliminary Bronchial Washings - Left Elle albicans Assessment and Plan (1) Lung nodules Status: Acute Plan: The patient was seen and examined with Dr. Cisneros. He is currently in no distress. Dr. Cisneros had a long discussion with Dr. Polk. Feels that a CT- guided biopsy would be the next logical step. No surgical intervention at this time. Will see when necessary. Time with Patient: Greater than 30
[2016-11-15 17:05] LABS: Glucose,Whole Blood 157 mg/dL (75-99)
--- NOTE | 2016-11-15 20:42 | CT ---
EXAMINATION TYPE: CT chest wo con DATE OF EXAM: 11/15/2016 8:28 PM COMPARISON: 11/04/2016 HISTORY: Patient has no chest complaints at time of study. CT DLP: 817 mGycm Automated exposure control for dose reduction was used. FINDINGS: There are numerous bilateral pulmonary nodules that measure up to 1.5 cm. There are bilateral pleural effusions and larger on the right side. There is a small pericardial effusion. Thoracic aorta is ath eromatous. There are a few mediastinal lymph nodes that measure up to 1 cm. There is coronary artery calcification. There is mitral valve annulus calcification. IMPRESSION: NUMEROUS BILATERAL PULMONARY NODULES WITHOUT A SIGNIFICANT CHANGE COMPARED TO RECENT CT SCAN OF 2016. THERE IS INCREASE IN THE LEFT PLEURAL EFFUSION AND NO CHANGE IN RIGHT PLEURAL EFFUSION COMPARED TO LAST EXAM. ATHEROSCLEROTIC VASCULAR DISEASE.
[2016-11-15] MEDS: PANTOPRAZOLE 40 MG TABLET PO SCH (20:50)
[2016-11-15] MEDS: METOPROLOL TARTRATE 25 MG TAB PO SCH (20:51)
[2016-11-15] MEDS: TAMSULOSIN 0.4 MG CAP.ER.24H PO SCH (20:51)
[2016-11-15 20:58] LABS: Glucose,Whole Blood 154 mg/dL (75-99)
[2016-11-15] MEDS: IBUPROFEN 200 MG TAB PO PRN (21:49)
[2016-11-16] MEDS: PIPERACILLIN-TAZOBACTAM 3.375 GM in DEXTROSE/WATER 1 50ML.BAG IVPB SCH ×3 (00:19→15:51)
[2016-11-16] MEDS: HEPARIN SODIUM,PORCINE 5,000 UNIT/ML 1 ML VIAL SQ SCH ×3 (00:19→15:50)
[2016-11-16] MEDS: HYDROcodone/APAP 7.5-325MG 1 EACH TAB PO SCH ×5 (03:06→15:54)
[2016-11-16] MEDS: LEVOTHYROXINE 75 MCG TAB PO SCH (06:21)
[2016-11-16 07:10] LABS: Glucose,Whole Blood 189 mg/dL (75-99)
[2016-11-16 07:59] VITALS: RESP 20
[2016-11-16] MEDS: BUDESONIDE 0.5 MG/2 ML NEBU INHALATION SCH (08:06)
[2016-11-16] MEDS: IPRATROPIUM-ALBUTEROL 3 ML NEB INHALATION SCH ×3 (08:06→16:05)
--- NOTE | 2016-11-16 08:26 | PN ---
DATE OF SERVICE: 11/15/2016 REASON FOR FOLLOW-UP: Pulmonary nodule with question of septic emboli. INTERVAL HISTORY: The patient is afebrile. Has been breathing comfortably. The patient denies significant chest pain, occasional cough, no abdominal pain and no nausea, vomiting or any diarrhea. On examination, blood pressure 110/58 with a pulse of 88, temperature 98. He is 94% on 2 liters nasal cannula. General description is an elderly male up in the chair in no distress. RESPIRATORY SYSTEM: Unlabored breathing with decreased breath sounds at the base. No wheeze. HEART: S1, S2 regular rate and rhythm. ABDOMEN: Soft, no tenderness. LABS: Hemoglobin 9, white count 7.5, BUN of 20, creatinine 1.14. DIAGNOSTIC IMPRESSION AND PLAN: Patient with bilateral pulmonary nodule with concern high for possible malignancy. Clinically doubt septic emboli in a patient with no fever. No elevated white count. Bronch and transbronchial biopsy was nondiagnostic. CT surgery was consulted for vascular procedure, recommending a CT-guided biopsy. We will discuss further with pulmonary. Continue the patient on Zosyn at this point. Continue supportive care. MTDD
[2016-11-16 08:27] LABS: Basophils % (A) 0 %; CH 28.8; CHCM 30.6; Eosinophils # (A) 0.4 k/uL (0-0.7); Eosinophils % (A) 6 %; HCT 28.7 % (39.0-53.0); HDW 2.45; HGB 8.8 gm/dL (13.0-17.5); Hypochromasia Slight; Luc # (Auto) 0.11; Luc % (Auto) 1; Lymphocytes # (A) 1.6 k/uL (1.0-4.8); Lymphocytes % (A) 22 %; MCH 29.2 pg (25.0-35.0); MCHC 30.8 g/dL (31.0-37.0); MCV 94.6 fL (80.0-100.0); Mean Platelet Volume 6.8; Monocytes # (A) 0.4 k/uL (0-1.0); Monocytes % (A) 5 %; Neutrophils # (A) 4.8 k/uL (1.3-7.7); Neutrophils % (A) 66 %; RBC 3.03 m/uL (4.30-5.90); RDW 15.2 % (11.5-15.5); WBC 7.3 k/uL (3.8-10.6); WBC (Perox) 7.66
[2016-11-16 08:30] LABS: Calcium 8.9 mg/dL (8.4-10.2); Potassium 4.8 mmol/L (3.5-5.1); Total Bilirubin 0.5 mg/dL (0.2-1.3); Total Protein 6.1 g/dL (6.3-8.2)
[2016-11-16] MEDS: INSULIN LISPRO (humaLOG) 300 UNIT/3 ML VIAL SQ SCH ×2 (08:33→12:48)
[2016-11-16] MEDS: INSULIN GLARGINE 100 UNIT/ML 10 ML VIAL SQ SCH (08:36)
[2016-11-16] MEDS: GABAPENTIN 300 MG CAP PO SCH (08:38)
[2016-11-16] MEDS: LISINOPRIL 5 MG TAB PO SCH (08:38)
[2016-11-16] MEDS: metFORMIN 500 MG TAB PO SCH (08:38)
[2016-11-16] MEDS: METOLAZONE 2.5 MG TAB PO SCH (08:39)
[2016-11-16] MEDS: FLUoxetine HCL 10 MG CAP PO SCH (08:39)
--- NOTE | 2016-11-16 10:52 | P.PN ---
Subjective This is a 86-year-old male who is being evaluated and examined today on the fifth floor. Patient was admitted to the hospital was suspicious of pneumonia and possible neoplasm as well. This patient has a significant history for severe COPD. 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 The patient subsequently was hospitalized sometime around August this year with liver abscess. He is being treated by infectious disease services for long -term antibiotics. She was at home where he became more short of breath and was having intermittent abdominal pain and increased in the extent of his shortness of breath. A CT scan of the chest abdomen and pelvis was performed and was found to be abnormal with multiple lesions of the lungs varying in size from 1-1.5 cm as well as of a developing right-sided pleural effusion. Upon examination the patient does complain of some coughing which is non-productive which appears chronic. On room air. His appetite improved. Patient did undergo a bronchoscopy with lung biopsies results non diagnostic. Dr. Polk personally spoke with cardiothoraic surgeon and would like the patient to undergo a VATS procedure, however cardiothoracic surgeon with like the patient transferred. Patient making good urine output. Objective - Vital Signs Vital signs: Vital Signs Temp 97.5 F L 11/16/16 07:00 Pulse 74 11/16/16 08:20 Resp 20 11/16/16 07:00 BP 119/63 11/16/16 07:00 Pulse Ox 96 11/16/16 07:00 Intake & Output 11/15/16 11/16/16 11/16/16 18:59 06:59 18:59 Intake Total 420 Output Total 3 Balance -3 420 Weight 99.5 kg Intake: IV 220 Piperacillin-Tazobactam 3 100 .375 gm In Dextrose/Water 1 50ml.bag @ 12.5 mls/hr IVPB Q8HR ANNIE Rx#: [id number] ns@ 20 120 Oral 200 Output: Stool 3 Other: Voiding Method Toilet Toilet Toilet # Voids 2 1 - Exam GENERAL EXAM: Alert, comfortable in no apparent distress. HEAD: Normocephalic. EYES: Normal reaction of pupils, equal size. NOSE: Clear with pink turbinates. THROAT: No erythema or exudates. NECK: No masses, no JVD. CHEST: No chest wall deformity. LUNGS: Equal air entry with no crackles, wheeze, rhonchi or dullness. Bases diminished CVS: S1 and S2 normal with no audible mumurs, regular rhythm. ABDOMEN: No hepatosplenomegaly, normal bowel sounds, no guarding or rigidity. EXTREMITIES: No edema noted, pedal pulses palpable. SKIN: No rashes CENTRAL NERVOUS SYSTEM: No focal deficits, tone is normal in all 4 extremities. - Labs CBC & Chem 7: 11/16/16 07:35 11/16/16 07:35 Labs: Abnormal Lab Results - Last 24 Hours (Table) 11/15/16 11/15/16 11/15/16 Range/Units 11:00 17:04 20:38 RBC (4.30-5.90) m/uL Hgb (13.0-17.5) gm/dL Hct (39.0-53.0) % MCHC (31.0-37.0) g/dL Creatinine (0.66-1.25) mg/dL Glucose (74-99) mg/dL POC Glucose (mg/dL) 188 H 157 H 154 H (75-99) mg/dL Alkaline Phosphatase (38-126) U/L Total Protein (6.3-8.2) g/dL Albumin (3.5-5.0) g/dL 11/16/16 11/16/16 11/16/16 Range/Units 07:05 07:35 07:35 RBC 3.03 L (4.30-5.90) m/uL Hgb 8.8 L (13.0-17.5) gm/dL Hct 28.7 L (39.0-53.0) % MCHC 30.8 L (31.0-37.0) g/dL Creatinine 1.37 H (0.66-1.25) mg/dL Glucose 162 H (74-99) mg/dL POC Glucose (mg/dL) 189 H (75-99) mg/dL Alkaline Phosphatase 149 H (38-126) U/L Total Protein 6.1 L (6.3-8.2) g/dL Albumin 2.8 L (3.5-5.0) g/dL Assessment and Plan Plan: Assessment Bilateral ulnar nodules with cavitation, concerning for septic emboli Right-sided pleural effusion, improved History is, cells cancer of the skin History of liver abscess Diabetes mellitus type 2 Hypertension Severe COPD History of obstructive sleep apnea Atrial flutter Moderate pericardial effusion Partial calcified is subcarinal and paraesophageal lymph nodes Plan Patient has transfer in progress to [facility] for procedures. Medications have been reviewed and will be continued as ordered. We will continue supplemental oxygen to maintain saturations greater than 88%. Continue with breathing treatments, pulmonary hygiene and supportive care. Continue to monitor the effusions. Continue with gentle hydration and monitor electrolytes. Patient should continue his CPAP nightly and when necessary. Encourage good nutrition as well as increase activity. We will continue to monitor labs/results and adjust treatment as necessary. I performed an examination of the patient and discussed their management with the nurse practitioner. I have reviewed the nurse practitioner's note and agree with the documented findings and plan of care.
[2016-11-16 11:33] LABS: Glucose,Whole Blood 239 mg/dL (75-99)
--- NOTE | 2016-11-16 13:55 | P.DS ---
Providers Date of admission: 11/04/16 14:17 Expected date of discharge: 11/16/16 Attending physician: Lazaro Erazo Consults: 11/04/16 16:38 Consult Physician Routine Consulting Provider: Que Polk Consult Reason/Comments: PULMONARY NODULE Do you want consulting provider notified?: Yes 11/04/16 16:41 Consult Physician Routine Consulting Provider: Oren Suh Consult Reason/Comments: liver mass Do you want consulting provider notified?: Yes 11/04/16 16:43 Consult Physician Routine Consulting Provider: Kiran Fletcher Consult Reason/Comments: colangioacarcinoma Do you want consulting provider notified?: Yes 11/04/16 18:18 Consult Physician Routine Consulting Provider: Du Grider Consult Reason/Comments: lung nodules, evaluate for VATS Do you want consulting provider notified?: Yes 11/04/16 18:19 Consult Physician Routine Consulting Provider: Shahbaz Myers Consult Reason/Comments: RIGHT PLEURAL EFFUSION, RIGHT THORACENTESIS Do you want consulting provider notified?: Yes 11/04/16 20:48 Consult Physician Routine Consulting Provider: Sunitha Walters Consult Reason/Comments: infection liver/lung/ Do you want consulting provider notified?: Yes 11/06/16 14:29 Consult Physician Routine Consulting Provider: Stan Raman Consult Reason/Comments: Question need for MARCELINA, possible septic emboli on CT chest Do you want consulting provider notified?: Already Contacted 11/14/16 15:10 Consult Physician Routine Consulting Provider: Francisco Sexton Consult Reason/Comments: vats Do you want consulting provider notified?: Already Contacted Primary care physician: [facility] Course: 86-year-old male who was admitted to the hospital with shortness of breath. There was a suspicion for pneumonia as well as a neoplastic. Patient has a smoking history of COPD. Patient was found earlier this year to be diagnosed with squama cell carcinoma of the scalp and underwent flap surgery of in [place]. Subsequently patient has been hospitalized in September 2016 with liver abscess. Patient has been followed this hospitalization by infectious disease. Patient continued to feel more short of breath was having intermittent episodes of abdominal pain. A CAT scan of the chest and abdomen was performed was found to be abnormal with multiple lesions in the lungs. The size of the nodules varying from 11.5. Patient did develop a right side pleural effusion. Patient did undergo a bronchoscopic this admission by pulmonology was nondiagnostic. A cardiovascular consultation was requested by pulmonology to see the patient was candidate for a VATS procedure. Patient was seen by cardiovascular surgeon dr sexton . They felt that a CT-guided biopsy would be the most logical step. There was no surgical intervention at this time. They felt the patient to be transferred to a tertiary center for higher level of care. The plan was to transfer the patient [facility] in [place] when the bed becomes available Impression Bilateral pulmonary nodules with cavitation, concerning for septic emboli. Right-sided pleural effusion, improving. Thoracentesis was cancelled. . History of liver abscess. . History of squamous cancer of skin and scalp. 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 surgery of the scalp at Type 2 diabetes Obstructive sleep apnea with the use of CPAP therapy Moderate pericardial effusion Partial calcified is subcarinal and paraesophageal lymph nodes History of liver abscess Bilateral pulmonary nodules with cavitation Status post bronchoscopic be with transbronchial lung biopsy from the left lower lobe and bronchial alveolar process lung biopsies nondiagnostic The above dictated assessment and findings were discussed with dr kacey Pandey and the plan of care have been dictated as directed. Adore Hightower nurse practitioner acting as a scribe for dr erazo Plan - Discharge Summary Discharge Medication List Aspirin EC [Ecotrin Low Dose] 81 mg PO AC-SUPPER 10/13/14 [History] Folic Acid 1 mg PO AC-SUPPER 10/13/14 [History] Lisinopril [Zestril] 5 mg PO DAILY 10/13/14 [History] Omeprazole [PriLOSEC] 20 mg PO HS 10/13/14 [History] [place]-3 Fatty Acids/Fish Oil [Fish Oil 1,000 mg Softgel] 1 cap PO AC-SUPPER [History] Potassium Chloride ER [K-Dur 20] 20 meq PO AC-SUPPER 08/24/15 [History] Levothyroxine Sodium [Synthroid] 75 mcg PO DAILY 02/21/16 [History] metFORMIN HCL 1,000 mg PO QAM 02/21/16 [History] Fluticasone Nasal [place] [Flonase Nasal [place]] 2 spray EA NOSTRIL HS PRN [History] Magnesium Oxide [Mag-Ox] 400 mg PO AC-SUPPER 03/25/16 [History] Tamsulosin [Flomax] 0.4 mg PO HS 03/25/16 [History] Gabapentin [Neurontin] 300 mg PO BID 08/11/16 [History] HYDROcodone/APAP 7.5-325MG [[place] 7.5-325] 1 tab PO Q4H 08/11/16 [History] Insulin Glargine [Lantus] 26 unit SQ QAM 08/11/16 [History] Metoprolol Tartrate [Lopressor] 25 mg PO HS 08/11/16 [History] Ursodiol [Marcos] 250 mg PO AC-BID 08/30/16 [History] Ipratropium-Albuterol Nebulize [Duoneb 0.5 mg-3 mg/3 ml Soln] 3 ml INHALATION RT -QID #120 ampul.neb 09/27/16 [Rx] Budesonide [Pulmicort] 0.5 mg INHALATION RT-BID 11/04/16 [History] Cyanocobalamin [Vitamin B-12 Injection] 1,000 mcg SQ QMONTH 11/04/16 [History] FLUoxetine HCL [PROzac] 10 mg PO DAILY 11/04/16 [History] Ferrous Sulfate [Iron (65 MG Elemental)] 325 mg PO AC-SUPPER 11/04/16 [History] Furosemide [Lasix] 40 mg PO AC-BID 11/04/16 [History] Metolazone [Zaroxolyn] 2.5 mg PO QAM 11/04/16 [History] Ubidecarenone [Co Q-10] 200 mg PO AC-SUPPER 11/04/16 [History] Follow up Appointment(s)/Referral(s): Que Polk MD [STAFF PHYSICIAN] - 1 Week Lazaro Erazo MD [Primary Care Provider] - 1 Week Activity/Diet/Wound Care/Special Instructions: [facility] - Discharge Disposition: DC/TRNS INTERMEDIATE CARE FAC
--- NOTE | 2016-11-16 14:28 | PN ---
DATE OF SERVICE: 11/16/2016 Reason for followup is multiple pulmonary nodules with a question of melena versus septic emboli. INTERVAL HISTORY: The patient is afebrile. He is currently breathing comfortably. Complained of some abdominal distention, but no nausea or vomiting and no diarrhea. Patient currently be transferred to [facility] to be evaluated by CT Surgery for possible MRSA disease. On examination, blood pressure is 119/63 with a pulse of 71, temperature is 97.5, he is 96% on room air. General description is an elderly male, up in the chair in no distress. RESPIRATORY SYSTEM: Unlabored breathing. Clear to auscultation anteriorly. HEART: S1, S2. ABDOMEN: Soft and rhythm. LABS: Hemoglobin of 8.1, white count 7.2 with a BUN of 17, creatinine 1.379. DIAGNOSTIC IMPRESSION AND PLAN: Patient with multiple pulmonary cavitating nodules, on transbronchial biopsy were nondiagnostic. Cultures so far negative. We did transfer to [facility] tertiary care for possible vent procedure or CT-guided biopsy. Continue Zosyn, continue supportive care. [facility]
[2016-11-16 15:08] VITALS: BMI 30.6
[2016-11-16 15:31] VITALS: BP 109/73; TEMP 97.8
[2016-11-16 16:08] VITALS: PULSE 78
[2016-11-16 17:23] LABS: Glucose,Whole Blood 206 mg/dL (75-99)
== END 2016-11-16 17:35 | disposition short-term general hospital (02) | DRG 167 ==
LOC: 5MS5E 14:17
PROVIDERS: ADMIT Family Medicine; ATTEND Family Medicine
PROC: 0B9G8ZX Drainage of Left Upper Lung Lobe, Via Natural or Artificial Opening Endoscopic, Diagnostic (ICD-10-PCS; principal; 2016-11-10 08:30)
PROC: 0BBG4ZX Excision of Left Upper Lung Lobe, Percutaneous Endoscopic Approach, Diagnostic (ICD-10-PCS; principal; 2016-11-10 08:30)
DX: C34.90 Malignant neoplasm of unspecified part of unspecified bronchus or lung (principal); R64 Cachexia; I31.3 Pericardial effusion (noninflammatory); J44.0 Chronic obstructive pulmonary disease with (acute) lower respiratory infection; I13.0 Hypertensive heart and chronic kidney disease with heart failure and stage 1 through stage 4 chronic kidney disease, or unspecified chronic kidney disease; I50.32 Chronic diastolic (congestive) heart failure; J90 Pleural effusion, not elsewhere classified; I48.92 Unspecified atrial flutter; J44.1 Chronic obstructive pulmonary disease with (acute) exacerbation; E11.22 Type 2 diabetes mellitus with diabetic chronic kidney disease; E03.9 Hypothyroidism, unspecified; E66.9 Obesity, unspecified; E78.5 Hyperlipidemia, unspecified; F32.9 Major depressive disorder, single episode, unspecified; F41.9 Anxiety disorder, unspecified; G47.33 Obstructive sleep apnea (adult) (pediatric); I25.10 Atherosclerotic heart disease of native coronary artery without angina pectoris; K21.9 Gastro-esophageal reflux disease without esophagitis; K76.89 Other specified diseases of liver; M51.9 Unspecified thoracic, thoracolumbar and lumbosacral intervertebral disc disorder; N18.9 Chronic kidney disease, unspecified; Z79.2 Long term (current) use of antibiotics; Z79.4 Long term (current) use of insulin; Z79.82 Long term (current) use of aspirin; Z79.899 Other long term (current) drug therapy; Z85.828 Personal history of other malignant neoplasm of skin; Z87.01 Personal history of pneumonia (recurrent); Z87.891 Personal history of nicotine dependence; Z95.0 Presence of cardiac pacemaker
CPT/HCPCS: 31624; 31628; 71010; 71020; 71250; 74150; 74177; 76604; 76705; 80048; 80053; 80202; 81003; 82150; 83036; 83605; 83690; 83880; 84443; 85025; 85610; 85652; 86301; 87040; 87070; 87102; 87116; 87205; 87206; 87252; 87299; 87496; 87498; 87502; 87529; 87541; 87798; 88108; 88305; 93306; 94640; 94760

== ENCOUNTER → 2016-11-04 | Outpatient (CLI) | payer MEDICARE, BC ==
--- NOTE | 2016-11-04 12:37 | CT ---
EXAMINATION TYPE: CT chest abdomen wo con DATE OF EXAM: 11/04/2016 12:17 PM COMPARISON: Abdomen and pelvis 08/12/2016 HISTORY: 86-year-old male with abdominal pain and shortness of breath. TECHNIQUE: Contiguous axial scanning of the chest and abdomen without IV contrast. Coronal and sagitt al reconstructions performed. CT DLP: 1496 mGycm Automated exposure control for dose reduction was used. FINDINGS: CHEST: Left anterior chest wall pacemaker generator with right atrial and right ventricular leads. The heart is borderline in size with moderate pericardial effusion measuring 1.2 cm thick. Coronary v essel calcifications are present in remarkable for coronary artery disease. 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 There appear to be some partially calcified lymph nodes in the subcarinal, paraesophageal and left hi lar regions that were partially visualized back to 02/23/2016 measuring up to 1.5 cm in the subcarinal region. No thoracic lymphadenopathy otherwise seen by CT size criteria. Irregular 1.1 cm opacity at the left apex could represent pleural-parenchymal scarring or a pulmonary nodule. There are numerous pulmonary nodules throughout the lungs with a mid lung predominance. These nodules measure up to 1.2 cm and some nodules show cavitation, for example, on the left axial image 17 and 2 7. There is reaccumulation of now a moderate right pleural effusion. There is trace left pleural effusio n. ABDOMEN: Focal hypodensity along anterior segment 2 left liver lobe measures up to 2.7 cm AP versus 3.4 cm on 08/12/2016. There is some overlying capsular retraction which may be new in the interval. The lack of I V contrast limits the evaluation. Left-sided pneumobilia is noted and may relate to recent instrument ation or prior sphincterotomy. Gallbladder surgically absent. Adrenal glands and kidneys within normal limits. There appears to be cortical thinning within the kid neys suggesting chronic medical renal disease. However, there is extensive respiratory motion artifac t limiting adequate evaluation of the pancreas and kidneys as well as areas of the mesentery and smal l bowel loops. There appears to be redemonstrated right paramedian Tijerina's hernia containing short segment of smal l bowel. Scattered mild stool. Mild to moderate atherosclerotic calcifications within the abdominal aorta. No definite mesenteric or retroperitoneal lymphadenopathy seen. Bones: Osteopenia. Degenerated levoconvex scoliosis of the lumbar spine. No osseous destructive proce ss. IMPRESSION: 1. Numerous new bilateral pulmonary nodules measuring up to 1.2 cm. A few of these show slight medical intern al cavitation. Metastatic disease and infectious process such as septic emboli are in the differentia l. Clinical correlation is recommended. 2. Reaccumulated moderate right pleural effusion and trace left pleural effusion. There is also a mod erate pericardial effusion now present. 3. Vague hypodensity in segment 2 left liver lobe measures approximately 2.7 cm versus 3.4 cm on 2016. There may be some overlying capsular retraction in the interval. Correlate with prior workup as to etiology. Some differential considerations include residual, decreased area of phlegmon, scarring , and neoplasm such as cholangiocarcinoma. Consider initial correlation with tumor markers/CA-19-9 if not already performed. 4. Left-sided pneumobilia. Correlate for prior sphincterotomy or recent instrumentation. 5. Prominent breathing motion artifact in the mid abdomen without clear evidence for any metastatic d isease in the abdomen. 6. Small right mid abdominal [place]ijerina hernia containing a short small bowel loop. 7. A 1.1 cm irregular pulmonary nodule at the left apex should be reassessed at follow-up.
== END ==
LOC: RADCTMAIN 11:32
PROVIDERS: ATTEND Family Medicine
DX: R91.8 Other nonspecific abnormal finding of lung field (principal); J90 Pleural effusion, not elsewhere classified; I31.3 Pericardial effusion (noninflammatory); K76.9 Liver disease, unspecified; K83.8 Other specified diseases of biliary tract
CPT/HCPCS: 71250; 74150

== ENCOUNTER → 2016-12-21 | Outpatient (CLI) | payer MEDICARE, BC ==
--- NOTE | 2016-12-21 19:28 | CT ---
EXAMINATION TYPE: CT chest wo con DATE OF EXAM: 12/21/2016 COMPARISON: 11/15/2016 HISTORY: Pulmonary nodules follow up. CT DLP: 655.00 mGycm Automated exposure control for dose reduction was used. FINDINGS: Multiple axial sections were obtained from the thoracic inlet to the diaphragm with no contrast. The heart is enlarged. There are multiple scattered nodules in both lungs that have relatively low densit y. The largest measures 1.5 cm in the right lower lobe with central cavitation. Thoracic aorta is ath eromatous. There are a few mediastinal lymph nodes measure up to 1.3 cm. I see no definite bronchial adenopathy. There is a diverticulum on the posterior gastric fundus. I see no pleural effusion. IMPRESSION: MULTIPLE BILATERAL PULMONARY NODULES. THE NODULES OVERALL APPEAR NOT SIGNIFICANTLY DIFFERENT THAN 11/15. THERE IS CLEARING OF THE BILATERAL PLEURAL EFFUSIONS. THERE IS CARDIOMEGALY.
== END | disposition home or self-care (01) ==
LOC: RADCTMAIN 18:53
PROVIDERS: ATTEND Family Medicine
DX: J90 Pleural effusion, not elsewhere classified (principal); I51.7 Cardiomegaly; R91.8 Other nonspecific abnormal finding of lung field
CPT/HCPCS: 71250

== ENCOUNTER 2017-01-04 11:13 | Emergency (ER) | payer MEDICARE, BC ==
[2017-01-04] MEDS ORDERED: SILVER NITRATE APPLICATOR 1 EACH STICK..EA. TOPICAL STA (11:24)
--- NOTE | 2017-01-04 11:40 | ED ---
General Adult HPI - General Chief complaint: Skin/Abscess/Foreign Body Stated complaint: Head Injury Time Seen by Provider: 01/04/17 11:15 Source: patient, EMS, RN notes reviewed Mode of arrival: EMS Limitations: no limitations - History of Present Illness Initial comments: Chief complaint and history of present illness this is an 86-year-old male who has had skin cancer on his scalp. It was removed years ago a large defect has reoccurred as the skin graft did not take. He wears a CPAP mask and this morning while removing it one of the straps cause bleeding to start. Examination finds bleeding from a small spot in the middle of the area in question. - Related Data Home Medications Medication Instructions Recorded Confirmed Aspirin EC [Ecotrin Low Dose] 81 mg PO AC-SUPPER 10/13/14 11/04/16 Folic Acid 1 mg PO AC-SUPPER 10/13/14 11/04/16 Lisinopril [Zestril] 5 mg PO DAILY 10/13/14 11/04/16 Omeprazole [PriLOSEC] 20 mg PO HS 10/13/14 11/04/16 [place]-3 Fatty Acids/Fish Oil [Fish 1 cap PO AC-SUPPER 08/24/15 11/04/16 Oil 1,000 mg Softgel] Potassium Chloride ER [K-Dur 20] 20 meq PO AC-SUPPER 08/24/15 11/04/16 Levothyroxine Sodium [Synthroid] 75 mcg PO DAILY 02/21/16 11/04/16 metFORMIN HCL 1,000 mg PO QAM 02/21/16 11/04/16 Fluticasone Nasal [place] [Flonase 2 spray EA NOSTRIL HS PRN 03/25/16 11/04/16 Nasal [place]] Magnesium Oxide [Mag-Ox] 400 mg PO AC-SUPPER 03/25/16 11/04/16 Tamsulosin [Flomax] 0.4 mg PO HS 03/25/16 11/04/16 Gabapentin [Neurontin] 300 mg PO BID 08/11/16 11/04/16 HYDROcodone/APAP 7.5-325MG [[place] 1 tab PO Q4H 08/11/16 11/04/16 7.5-325] Insulin Glargine [Lantus] 26 unit SQ QAM 08/11/16 11/04/16 Metoprolol Tartrate [Lopressor] 25 mg PO HS 08/11/16 11/04/16 Ursodiol [Marcos] 250 mg PO AC-BID 08/30/16 11/04/16 Budesonide [Pulmicort] 0.5 mg INHALATION RT-BID 11/04/16 11/04/16 Cyanocobalamin [Vitamin B-12 1,000 mcg SQ QMONTH 11/04/16 11/04/16 Injection] FLUoxetine HCL [PROzac] 10 mg PO DAILY 11/04/16 11/04/16 Ferrous Sulfate [Iron (65 MG 325 mg PO AC-SUPPER 11/04/16 11/04/16 Elemental)] Furosemide [Lasix] 40 mg PO AC-BID 11/04/16 11/04/16 Metolazone [Zaroxolyn] 2.5 mg PO QAM 11/04/16 11/04/16 Ubidecarenone [Co Q-10] 200 mg PO AC-SUPPER 11/04/16 11/04/16 Previous Rx's Medication Instructions Recorded Ipratropium-Albuterol Nebulize 3 ml INHALATION RT-QID #120 09/27/16 [Duoneb 0.5 mg-3 mg/3 ml Soln] ampul.neb Allergies Allergy/AdvReac Type Severity Reaction Status Date / Time [id number] Reductase AdvReac Unknown Unknown Verified 01/04/17 11:21 Inhibitor Iodinated Contrast Media - AdvReac shakes Verified 01/04/17 11:21 Oral and [Iodinated Contrast Media - IV Dye] Review of Systems ROS Statement: Those systems with pertinent positive or pertinent negative responses have been documented in the HPI. Review of systems no complaint other than bleeding from that spot on his scalp in the left occipital region. Otherwise no complaints of chest pain shortness breath GI/ problems. No neuro deficits. All systems reviewed were negative. Past medical problems significant for skin cancer on his head. CHF, diabetes mellitus, GERD, hyperlipidemia, hypertension, chronic liver disease, osteoarthritis, sleep apnea, hypothyroidism, surgeries appendectomy, cholecystectomy, hernia repair and pacemaker. Tonsillectomy. Bilateral cataracts. Family history noncontributory. Patient's ALLERGIES statins, iodine nonsmoker nondrinker ROS Other: All systems not noted in ROS Statement are negative. Past Medical History Past Medical History: Cancer, Heart Failure, Diabetes Mellitus, GERD/Reflux, Hyperlipidemia, Hypertension, Liver Disease, Osteoarthritis (OA), Sleep Apnea/ CPAP/BIPAP, Thyroid Disorder Additional Past Medical History / Comment(s): HX jaundice age 11, SKIN CANCER- removal recently on head with open wound , SWELLING of ankles, hx ANEMIA, USES CANE, bradycardia, hiatal hernia, hs ulcer, History of Any Multi-Drug Resistant Organisms: None Reported Past Surgical History: Appendectomy, Cholecystectomy, Hernia Repair, Pacemaker, Tonsillectomy Additional Past Surgical History / Comment(s): lana CATARACTS WITH LENS IMPLANT, SKIN CANCER removed from head x3 Past Anesthesia/Blood Transfusion Reactions: No Reported Reaction Type of Cardiac Device: Permanent Pacemaker Device Placement Date:: 08/2015 Past Psychological History: Anxiety, Depression Smoking Status: Former smoker Past Alcohol Use History: None Reported Past Drug Use History: None Reported - Past Family History Mother Family Medical History: No Reported History, Cancer Additional Family Medical History / Comment(s): LEUKEMIA Father Additional Family Medical History / Comment(s): WOUNDED IN WW1, MULTIPLE INJURES -LIVED TILL AGE 89 Brother(s) Family Medical History: Cancer General Exam - General Exam Comments Initial Comments: General: The patient is awake and alert, chief complaint of bleeding from the site on his scalp in the left occipital region. Caused by removing his CPAP strap. Patient has recurrent cancer and his skin graft did not take to the area. Vital signs temp 97.9 pulse 60 respiratory rate 18 blood pressure 145/60. Eye: Pupils are equal, round and reactive to light, extra-ocular movements are intact ; there is normal conjunctiva bilaterally. No signs of icterus. Ears, nose, mouth and throat: There are moist mucous membranes and no oral lesions. Patient has 2 lesions on his scalp with bandages one was bleeding bleeding was controlled with silver nitrate. Neck: The neck is supple, there is no tenderness . Cardiovascular: There is a regular rate and rhythm. No murmur, rub or gallop is appreciated. Respiratory: Lungs are clear to auscultation, respirations are non-labored, breath sounds are equal. No wheezes, stridor, rales, or rhonchi. Gastrointestinal: Soft, non-distended, non-tender abdomen without masses or organomegaly noted. There is no rebound or guarding present. No CVA tenderness. Bowel sounds are unremarkable. Back: No back pain Musculoskeletal: Chronic bilateral lower leg edema.. Neurological: No evidence of any neuro deficits. Patient reports no changes Skin: Thin skin with multiple bruises Limitations: no limitations Course Vital Signs 01/04/17 01/04/17 11:15 12:12 Temperature 97.9 F 96.9 F L Pulse Rate 60 55 L Respiratory 16 20 Rate Blood Pressure 145/60 140/80 O2 Sat by Pulse 96 96 Oximetry Medical Decision Making - Medical Decision Making Medical decision making; the bleeding was controlled with silver nitrate. She was observed for an hour no bleeding. Bandage applied. Patient will be following up with his family physician and a plastic surgeon will determine further treatment. Disposition Clinical Impression: Wound dehiscence Disposition: HOME SELF-CARE Condition: Fair Instructions: Chronic Wound Care (ED) Additional Instructions: Apply pressure if bleeding starts. Follow-up family physician Referrals: Lazaro Bailey MD [Primary Care Provider] - 1-2 days Time of Disposition: 12:31
[2017-01-04 12:13] VITALS: BP 140/80; PULSE 55; RESP 20; TEMP 96.9
== END 2017-01-04 12:45 | disposition home or self-care (01) ==
LOC: EC 11:13
DX: T81.31XA Disruption of external operation (surgical) wound, not elsewhere classified, initial encounter (principal); E11.9 Type 2 diabetes mellitus without complications; I10 Essential (primary) hypertension; M19.90 Unspecified osteoarthritis, unspecified site; K21.9 Gastro-esophageal reflux disease without esophagitis; E07.9 Disorder of thyroid, unspecified; E78.5 Hyperlipidemia, unspecified; F32.9 Major depressive disorder, single episode, unspecified; D64.9 Anemia, unspecified; Z85.828 Personal history of other malignant neoplasm of skin; Z87.891 Personal history of nicotine dependence; Z88.8 Allergy status to other drugs, medicaments and biological substances; Z91.041 Radiographic dye allergy status; Z79.84 Long term (current) use of oral hypoglycemic drugs; Z79.4 Long term (current) use of insulin; Z79.51 Long term (current) use of inhaled steroids; Z79.82 Long term (current) use of aspirin; Z79.899 Other long term (current) drug therapy
CPT/HCPCS: 99283

== ENCOUNTER 2017-03-06 18:25 | Inpatient (IN) | payer MEDICARE, BC ==
[2017-03-06] MEDS ORDERED: HYDROmorphone 1 MG/ML 1 ML SYRINGE IVP STA (18:50)
[2017-03-06] MEDS ORDERED: ONDANSETRON 4 MG/2 ML VIAL IVP STA (18:50)
--- NOTE | 2017-03-06 18:53 | ED ---
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 Patient currently on [place] at home for pain. Did call his family doctor who advised him come here to the emergency room for pain management. He states having increased pain and headaches. States he is using [place] at home taking every 2-4 hours. Patient does admit that is experiencing pain in the left side of his head behind the left eye. Patient states this is same pain that he's been experiencing but it seems to be coming more intense pain medicine at home is doing less and less warm. He denies any other complaints or symptoms. Patient denies any recent fever, chills, shortness of breath, chest pain, back pain, abdominal pain, nausea or vomiting, numbness or tingling, dysuria or hematuria, constipation or diarrhea, or any other complaints. - Related Data Home Medications Medication Instructions Recorded Confirmed Aspirin EC [Ecotrin Low Dose] 81 mg PO AC-SUPPER 10/13/14 01/04/17 Folic Acid 1 mg PO AC-SUPPER 10/13/14 01/04/17 Lisinopril [Zestril] 5 mg PO DAILY 10/13/14 01/04/17 Omeprazole [PriLOSEC] 20 mg PO HS 10/13/14 01/04/17 [place]-3 Fatty Acids/Fish Oil [Fish 1 cap PO AC-SUPPER 08/24/15 01/04/17 Oil 1,000 mg Softgel] Potassium Chloride ER [K-Dur 20] 20 meq PO HS 08/24/15 01/04/17 metFORMIN HCL 1,000 mg PO QAM 02/21/16 01/04/17 Fluticasone Nasal [place] [Flonase 2 spray EA NOSTRIL HS PRN 03/25/16 01/04/17 Nasal [place]] Magnesium Oxide [Mag-Ox] 400 mg PO HS 03/25/16 01/04/17 Tamsulosin [Flomax] 0.4 mg PO HS 03/25/16 01/04/17 Gabapentin [Neurontin] 300 mg PO BID 08/11/16 01/04/17 HYDROcodone/APAP 7.5-325MG [[place] 1 tab PO Q4H 08/11/16 01/04/17 7.5-325] Insulin Glargine [Lantus] 26 unit SQ QAM 08/11/16 01/04/17 Metoprolol Tartrate [Lopressor] 25 mg PO BID 08/11/16 01/04/17 Ursodiol [Marcos] 250 mg PO DAILY 08/30/16 01/04/17 Budesonide [Pulmicort] 0.5 mg INHALATION RT-BID 11/04/16 01/04/17 Cyanocobalamin [Vitamin B-12 1,000 mcg SQ QMONTH 11/04/16 01/04/17 Injection] FLUoxetine HCL [PROzac] 10 mg PO DAILY 11/04/16 01/04/17 Ferrous Sulfate [Iron (65 MG 325 mg PO AC-SUPPER 11/04/16 01/04/17 Elemental)] Furosemide [Lasix] 40 mg PO AC-BID 11/04/16 01/04/17 Metolazone [Zaroxolyn] 2.5 mg PO QAM 11/04/16 01/04/17 Insulin Aspart [NovoLOG Flexpen] 8 units SQ BID 01/04/17 01/04/17 Lactobacillus Acidophilus 1 tab PO DAILY 01/04/17 01/04/17 [Acidophilus] Levothyroxine Sodium [Synthroid] 100 mcg PO DAILY 01/04/17 01/04/17 Loratadine [Claritin] 10 mg PO DAILY 01/04/17 01/04/17 Nystatin 100,000Unit/gm Cream 1 applic TOPICAL BID 01/04/17 01/04/17 [Mycostatin Cream] SILVER sulfADIAZINE CREAM 1 applic TOPICAL DAILY 01/04/17 01/04/17 [Silvadene Cream] clonazePAM [KlonoPIN] 0.5 mg PO DAILY PRN 01/04/17 01/04/17 Previous Rx's Medication Instructions Recorded Ipratropium-Albuterol Nebulize 3 ml INHALATION RT-QID #120 09/27/16 [Duoneb 0.5 mg-3 mg/3 ml Soln] ampul.neb Allergies Allergy/AdvReac Type Severity Reaction Status Date / Time Lixezzh-Xcl-Ghl Reductase AdvReac Unknown Unknown Verified 01/04/17 12:39 Inhibitor Iodinated Contrast- Oral and AdvReac shakes Verified 01/04/17 12:39 IV Dye [Iodinated Contrast Media - IV Dye] Review of Systems ROS Statement: Those systems with pertinent positive or pertinent negative responses have been documented in the HPI. ROS Other: All systems not noted in ROS Statement are negative. Past Medical History Past Medical History: Cancer, Heart Failure, Diabetes Mellitus, GERD/Reflux, Hyperlipidemia, Hypertension, Liver Disease, Osteoarthritis (OA), Sleep Apnea/ CPAP/BIPAP, Thyroid Disorder Additional Past Medical History / Comment(s): HX jaundice age 11, SKIN CANCER- removal recently on head with open wound , SWELLING of ankles, hx ANEMIA, USES CANE, bradycardia, hiatal hernia, hs ulcer, History of Any Multi-Drug Resistant Organisms: None Reported Past Surgical History: Appendectomy, Cholecystectomy, Hernia Repair, Pacemaker, Tonsillectomy Additional Past Surgical History / Comment(s): alna CATARACTS WITH LENS IMPLANT, SKIN CANCER removed from head x3 Past Anesthesia/Blood Transfusion Reactions: No Reported Reaction Type of Cardiac Device: Permanent Pacemaker Device Placement Date:: 08/2015 Past Psychological History: Anxiety, Depression Smoking Status: Former smoker Past Alcohol Use History: None Reported Past Drug Use History: None Reported - Past Family History Mother Family Medical History: No Reported History, Cancer Additional Family Medical History / Comment(s): LEUKEMIA Father Additional Family Medical History / Comment(s): WOUNDED IN WW1, MULTIPLE INJURES -LIVED TILL AGE 89 Brother(s) Family Medical History: Cancer General Exam - General Exam Comments Initial Comments: General: The patient is awake and alert, in no distress, and does not appear acutely ill. Eye: Pupils are equal, round and reactive to light, extra-ocular movements are intact. No nystagmus. There is normal conjunctiva bilaterally. No signs of icterus. Ears, nose, mouth and throat: There are moist mucous membranes and no oral lesions. Neck: The neck is supple, there is no tenderness or JVD. Cardiovascular: There is a regular rate and rhythm. No murmur, rub or gallop is appreciated. Respiratory: Lungs are clear to auscultation, respirations are non-labored, breath sounds are equal. No wheezes, stridor, rales, or rhonchi. Musculoskeletal: Normal ROM, no tenderness. Strength 5/5. Sensation intact. Pulses equal bilaterally 2+. Neurological: A&O x 3. CN II-XII intact, There are no obvious motor or sensory deficits. Coordination appears grossly intact. Speech is normal. Psychiatric: Cooperative, appropriate mood & affect, normal judgment. Limitations: no limitations Course Vital Signs 03/06/17 18:27 Temperature 98.4 F Pulse Rate 63 Respiratory 18 Rate Blood Pressure 130/58 O2 Sat by Pulse 95 Oximetry Medical Decision Making - Medical Decision Making Case discussed with admitting physician will admit the patient for 23 hour observation for his increased pain. - Lab Data Result diagrams: 03/06/17 19:05 Lab Results 03/06/17 Range/Units 19:05 WBC 9.0 (3.8-10.6) k/uL RBC 3.65 L (4.30-5.90) m/uL Hgb 11.4 L (13.0-17.5) gm/dL Hct 33.7 L (39.0-53.0) % MCV 92.3 (80.0-100.0) fL MCH 31.2 (25.0-35.0) pg MCHC 33.8 (31.0-37.0) g/dL RDW 13.8 (11.5-15.5) % Plt Count 251 (150-450) k/uL Neutrophils % 65 % Lymphocytes % 23 % Monocytes % 7 % Eosinophils % 4 % Basophils % 1 % Neutrophils # 5.8 (1.3-7.7) k/uL Lymphocytes # 2.0 (1.0-4.8) k/uL Monocytes # 0.6 (0-1.0) k/uL Eosinophils # 0.3 (0-0.7) k/uL Basophils # 0.1 (0-0.2) k/uL Disposition Clinical Impression: Squamous cell carcinoma, Headache Disposition: ADMITTED IP TO THIS HOSP Condition: Good Referrals: Lazaro Bailey MD [Primary Care Provider] - 1-2 days Time of Disposition: 19:23
[2017-03-06] MEDS ORDERED: ONDANSETRON 4 MG/2 ML VIAL IVP PRN (19:12)
[2017-03-06] MEDS ORDERED: NALOXONE 0.4 MG/ML 1 ML VIAL IV PRN (19:12)
[2017-03-06 19:14] LABS: Basophils # (A) 0.1 k/uL (0-0.2); Basophils % (A) 1 %; CH 31.1; CHCM 33.8; Eosinophils # (A) 0.3 k/uL (0-0.7); Eosinophils % (A) 4 %; HCT 33.7 % (39.0-53.0); HDW 2.86; HGB 11.4 gm/dL (13.0-17.5); Luc # (Auto) 0.15; Luc % (Auto) 2; Lymphocytes % (A) 23 %; MCH 31.2 pg (25.0-35.0); MCHC 33.8 g/dL (31.0-37.0); MCV 92.3 fL (80.0-100.0); Mean Platelet Volume 6.9; Monocytes # (A) 0.6 k/uL (0-1.0); Monocytes % (A) 7 %; Neutrophils # (A) 5.8 k/uL (1.3-7.7); Neutrophils % (A) 65 %; RBC 3.65 m/uL (4.30-5.90); RDW 13.8 % (11.5-15.5); WBC (Perox) 9.03
[2017-03-06 19:23] LABS: Potassium 3.5 mmol/L (3.5-5.1); Total Bilirubin 0.3 mg/dL (0.2-1.3); Total Protein 7.1 g/dL (6.3-8.2)
[2017-03-06 20:54] VITALS: BMI 36.6
[2017-03-06] MEDS: oxyCODONE-APAP 5-325MG 1 EACH TAB PO PRN (21:50)
[2017-03-07] MEDS: HYDROmorphone 1 MG/ML 1 ML SYRINGE IV PRN ×4 (01:11→13:42)
[2017-03-07] MEDS: oxyCODONE-APAP 5-325MG 1 EACH TAB PO PRN ×4 (03:08→16:05)
[2017-03-07] MEDS ORDERED: clonazePAM 0.5 MG TAB PO PRN (03:48)
[2017-03-07] MEDS ORDERED: FLUTICASONE 50MCG/SPRAY NASAL 16GM EA NOSTRIL PRN (03:48)
[2017-03-07] MEDS ORDERED: CYANOCOBALAMIN 1,000 MCG/ML 1 ML VIAL IM SCH (04:00)
[2017-03-07] MEDS ORDERED: HYDROcodone/APAP 7.5-325MG 1 EACH TAB PO SCH (04:00)
[2017-03-07] MEDS: IPRATROPIUM-ALBUTEROL 3 ML NEB INHALATION SCH ×4 (06:57→20:00)
[2017-03-07] MEDS: BUDESONIDE 0.5 MG/2 ML NEBU INHALATION SCH ×2 (06:57→20:00)
[2017-03-07 07:42] LABS: Glucose,Whole Blood 106 mg/dL (75-99)
[2017-03-07 07:51] LABS: Basophils # (A) 0.1 k/uL (0-0.2); Basophils % (A) 1 %; CH 30.7; CHCM 32.8; Eosinophils # (A) 0.4 k/uL (0-0.7); Eosinophils % (A) 4 %; HCT 35.4 % (39.0-53.0); HDW 2.87; HGB 11.8 gm/dL (13.0-17.5); Luc # (Auto) 0.18; Luc % (Auto) 2; Lymphocytes # (A) 3.5 k/uL (1.0-4.8); Lymphocytes % (A) 36 %; MCH 31.4 pg (25.0-35.0); MCHC 33.3 g/dL (31.0-37.0); MCV 94.3 fL (80.0-100.0); Mean Platelet Volume 6.6; Monocytes # (A) 0.7 k/uL (0-1.0); Monocytes % (A) 7 %; Neutrophils # (A) 4.9 k/uL (1.3-7.7); Neutrophils % (A) 51 %; RBC 3.75 m/uL (4.30-5.90); RDW 13.6 % (11.5-15.5); WBC 9.7 k/uL (3.8-10.6)
[2017-03-07] MEDS: METOPROLOL TARTRATE 25 MG TAB PO SCH ×2 (08:11→20:33)
[2017-03-07] MEDS: METOLAZONE 2.5 MG TAB PO SCH (08:11)
[2017-03-07] MEDS: URSODIOL 300 MG CAP PO SCH (08:11)
[2017-03-07] MEDS: LACTOBACILLUS ACIDOPH & BULGAR 1 EACH PACKET PO SCH ×2 (08:12→08:27)
[2017-03-07] MEDS: LISINOPRIL 5 MG TAB PO SCH (08:12)
[2017-03-07] MEDS: LEVOTHYROXINE 100 MCG TAB PO SCH (08:12)
[2017-03-07] MEDS: LORATADINE 10 MG TAB PO SCH (08:12)
[2017-03-07] MEDS: metFORMIN 500 MG TAB PO SCH (08:12)
[2017-03-07] MEDS: FUROSEMIDE 40 MG TAB PO SCH ×2 (08:13→17:38)
[2017-03-07] MEDS: FLUoxetine HCL 10 MG CAP PO SCH (08:13)
[2017-03-07] MEDS: GABAPENTIN 300 MG CAP PO SCH ×2 (08:13→20:32)
[2017-03-07] MEDS: INSULIN LISPRO (humaLOG) 300 UNIT/3 ML VIAL SQ SCH ×6 (08:13→21:14)
[2017-03-07] MEDS: INSULIN GLARGINE 100 UNIT/ML 10 ML VIAL SQ SCH (08:16)
[2017-03-07] MEDS: NYSTATIN 100,000UNIT/GM CREAM 30 GM TUBE TOPICAL SCH ×2 (08:19→20:34)
[2017-03-07 08:29] LABS: Calcium 9.3 mg/dL (8.4-10.2); Potassium 3.6 mmol/L (3.5-5.1); Total Bilirubin 0.5 mg/dL (0.2-1.3); Total Protein 6.9 g/dL (6.3-8.2)
--- NOTE | 2017-03-07 09:59 | HP ---
CHIEF COMPLAINT: An 87-year-old white male with squamous cell carcinoma of the scalp with metastasis to the brain, unable to control his pain with [place]. He wants to come into the hospital at this time and receive radiation to shrink the cancer. Prior to him going he is unable to deal with the pain and the pain was 10 out 10 despite [place] 10/325 every 3 to 4 hours. He also has some lesions in his liver and his chest that have never been biopsied as he refused to have them biopsied in the past. He sees [facility] for his cancer, but he wants to have radiation here in town. As mentioned, the pain is really bad. He has diastolic CHF and end-stage COPD. He has some mild dementia. Home medications include: 1. Aspirin. 2. Folic acid. 3. Zestril. 4. Prilosec. 5. Fish oil. 6. Potassium chloride 20 mEq daily. 7. Metformin 1000 daily. 8. Fluticasone nasal spray daily. 9. Mag-oxide 400 daily. 10. Flomax 0.4 mg ( ). 11. Neurontin 300 b.i.d. 12. Lantus 26 units subcu a.m. 13. Lopressor 25 b.i.d. 14. Marcos 250 daily. 15. Pulmicort 0.5 b.i.d. 16. Vitamin B12 daily. 17. Prozac 10 mg daily. 18. Iron 65 mg daily. 19. Lasix 40 mg b.i.d. 20. Zaroxolyn 2.5 daily. 21. NovoLog FlexPen 8 units subcu b.i.d. 21. Acidophilus daily. 22. Synthroid 100 mcg daily. 23. Claritin 10 mg daily. 24. Nystatin application b.i.d. 25. Silver sulfadiazine application daily. 26. Klonopin 0.5 daily. Allergies are to STATINS, IODINE CONTRAST. Fourteen-point review of systems negative except for mentioned in HPI. PAST MEDICAL HISTORY: Heart failure, cancer, diabetes mellitus, GERD, dyslipidemia, hypertension, liver disease, osteoarthritis, sleep apnea, hypothyroidism, history of jaundice age 11, skin cancer removal of his head and part of skull is metastasized down into his brain, uses a cane due to congestive heart failure diastolic, severe cervical lumbar disc disease, osteoarthritis, hiatal hernia, ulcer. Surgeries are appendectomy, cholecystectomy, hernia repair, pacemaker, tonsillectomy, cataracts with lens implant, skin cancer removed from head x3, permanent pacemaker. He has anxiety and depression. Former smoker, no alcohol. No illicit drugs. FAMILY HISTORY: Mother with cancer, leukemia. Father wounded with multiple injuries lived to age 99. Brother has cancer. Physical exam shows temperature is 98.4, pulse 60 to 63, respiratory rate 16 to 18, blood pressure is 130s over 50s. O2 sat 95% on room air. HEENT: Normocephalic, atraumatic. OPHTHALMOLOGIC: Pupils equal, round, reactive to light and accommodation. ENT: ( ) normal. Neck is supple. No mass. No thyromegaly. CARDIOVASCULAR: Regular rate and rhythm. Lungs show clear to auscultation, nonlabored breath sounds. MUSCULOSKELETAL: Normal range of motion. Cranial nerves appear to be intact. PSYCH: Fair mood affect. Hemoglobin is 11.4, white count 9.0. ASSESSMENT: 1. Squamous cell carcinoma of the scalp, metastasis into the brain and into the skull. Admitted for palliative radiation treatment for chronic irretractable pain. 2. History of hypertension. 3. Hypothyroidism. 4. Diabetes mellitus. 5. Diastolic congestive heart failure. 6. Osteoarthritis. 7. Gait disability and generalized weakness. Palliative radiation. Care will be needed tomorrow. IV fluids will be given overnight and the patient will be discharged home after palliative radiation care to follow up as an outpatient. He also has acute on chronic renal insufficiency stage III and borderline mild protein calorie malnutrition. MTDD
[2017-03-07 11:12] LABS: Glucose,Whole Blood 158 mg/dL (75-99)
[2017-03-07 11:59] LABS: Hemoglobin A1C 9.7 % (4.2-6.1)
[2017-03-07] MEDS ORDERED: oxyCODONE-APAP 5-325MG 1 EACH TAB PO PRN (16:09)
--- NOTE | 2017-03-07 16:22 | P.CONS ---
History of Present Illness - Reason for Consult Consult date: 03/07/17 Requesting physician: Lazaro Bailey - Chief Complaint pain - scalp - History of Present Illness Mr. Marte is an 87-year-old male with a history of squamous cell carcinoma involving the scalp with multiple pulmonary metastasis. He presents secondary to difficulty controlling pain. The patient is a poor historian, and much of the history was obtained from his [id number]-pcx. According to the patient's [id number]-uuh, the patient has had surgery on his scalp at [facility] for recurrent squamous cell cancer. Back in October 2016, the patient was admitted with shortness of breath, and a CT scan of the chest revealed multiple pulmonary nodules up to 1.2 cm in size, as well as a hypodensity within the liver. According to the patient's [id number], the patient was referred to Dr. Del Toro in ear nose throat surgery at the [facility]. According to this , the patient would require a 15-16 our reconstructive surgery for his scalp. On account of the patient's multiple medical comorbidities, it was not felt he would survive this intervention. They discussed that the patient could consider chemotherapy or radiotherapy, but neither intervention would be curative in his situation. In all likelihood, the patient's pulmonary nodules represent metastasis from this primary tumor. Recently, the [facility] favored an approach of hospice for this patient. The patient has been taking on [place] for pain, and reports that over the last few days a sharp pain over his left eye has been difficult to tolerate. He was taking the [place] more frequently then recommended. He reportedly called 911 secondary to the pain, and was admitted to the hospital. The patient does have a pacemaker, and reports no previous history of radiation. Review of Systems Constitutional: Denies chills, Denies fever Eyes: denies blurred vision, denies bulging eye Ears: bilateral: decreased hearing Ears, nose, mouth and throat: Reports headache Cardiovascular: Denies chest pain Respiratory: Denies congestion, Denies dyspnea Gastrointestinal: Denies abdominal pain Past Medical History Past Medical History: Cancer, Heart Failure, Diabetes Mellitus, GERD/Reflux, Hyperlipidemia, Hypertension, Liver Disease, Osteoarthritis (OA), Sleep Apnea/ CPAP/BIPAP, Thyroid Disorder Additional Past Medical History / Comment(s): HX jaundice age 11, SKIN CANCER- removal recently on head with open wound , SWELLING of ankles, hx ANEMIA, USES CANE, bradycardia, hiatal hernia, hs ulcer, mets to brain, back pain History of Any Multi-Drug Resistant Organisms: None Reported Past Surgical History: Appendectomy, Cholecystectomy, Hernia Repair, Pacemaker, Tonsillectomy Additional Past Surgical History / Comment(s): lana CATARACTS WITH LENS IMPLANT, SKIN CANCER removed from head x3 Past Anesthesia/Blood Transfusion Reactions: No Reported Reaction Type of Cardiac Device: Permanent Pacemaker Device Placement Date:: 08/2015 Past Psychological History: Anxiety, Depression Additional Psychological History / Comment(s): . Smoking Status: Former smoker Past Alcohol Use History: None Reported Additional Past Alcohol Use History / Comment(s): SMOKED FOR APPROX 19 YEARS. 1PPD. QUIT SMOKING AT AGE 34. Past Drug Use History: None Reported - Past Family History Mother Family Medical History: No Reported History, Cancer Additional Family Medical History / Comment(s): LEUKEMIA Father Additional Family Medical History / Comment(s): WOUNDED IN WW1, MULTIPLE INJURES -LIVED TILL AGE 89 Brother(s) Family Medical History: Cancer Medications and Allergies Home Medications Medication Instructions Recorded Confirmed Type Aspirin EC [Ecotrin Low Dose] 81 mg PO AC-SUPPER 10/13/14 03/07/17 History Folic Acid 1 mg PO AC-SUPPER 10/13/14 03/07/17 History Lisinopril [Zestril] 5 mg PO DAILY 10/13/14 01/04/17 History Omeprazole [PriLOSEC] 20 mg PO HS 10/13/14 03/06/17 History [place]-3 Fatty Acids/Fish Oil [Fish 1 cap PO AC-SUPPER 08/24/15 03/07/17 History Oil 1,000 mg Softgel] Potassium Chloride ER [K-Dur 20] 20 meq PO HS 08/24/15 03/07/17 History metFORMIN HCL 1,000 mg PO BID 02/21/16 03/07/17 History Fluticasone Nasal [place] [Flonase 2 spray EA NOSTRIL 03/25/16 03/07/17 History Nasal [place]] Magnesium Oxide [Mag-Ox] 400 mg PO 03/25/16 03/07/17 History Tamsulosin [Flomax] 0.4 mg PO 03/25/16 03/07/17 History Gabapentin [Neurontin] 300 mg PO BID 08/11/16 03/07/17 History Insulin Glargine [Lantus] 26 unit SQ QAM 08/11/16 03/06/17 History Metoprolol Tartrate [Lopressor] 25 mg PO BID 08/11/16 03/07/17 History Ursodiol [Marcos] 250 mg PO DAILY 08/30/16 03/07/17 History Cyanocobalamin [Vitamin B-12 1,000 mcg SQ QMONTH 11/04/16 03/07/17 History Injection] FLUoxetine HCL [PROzac] 10 mg PO DAILY 11/04/16 01/04/17 History Ferrous Sulfate [Iron (65 MG 325 mg PO AC-SUPPER 11/04/16 03/07/17 History Elemental)] Metolazone [Zaroxolyn] 2.5 mg PO AC-BRKFST 11/04/16 03/07/17 History Insulin Aspart [NovoLOG Flexpen] See Protocol SQ AC-TID 01/04/17 03/07/17 History Lactobacillus Acidophilus 1 tab PO DAILY 01/04/17 03/06/17 History [Acidophilus] Levothyroxine Sodium [Synthroid] 100 mcg PO DAILY 01/04/17 03/07/17 History Loratadine [Claritin] 10 mg PO DAILY 01/04/17 03/06/17 History Nystatin 100,000Unit/gm Cream 1 applic TOPICAL BID 01/04/17 03/07/17 History [Mycostatin Cream] SILVER sulfADIAZINE CREAM 1 applic TOPICAL DAILY 01/04/17 03/06/17 History [Silvadene Cream] Budesonide-Formot 160-4.5 Mcg 2 puff INHALATION RT-BID 03/07/17 03/07/17 History [Symbicort 160-4.5 Mcg Inhaler] Furosemide [Lasix] 20 mg PO BID PRN 03/07/17 03/07/17 History HYDROcodone/APAP 10-325MG [[place] 1 tab PO Q4H PRN 03/07/17 03/07/17 History 10-325] Allergies Allergy/AdvReac Type Severity Reaction Status Date / Time Nxuaave-Inu-Fam Reductase AdvReac Unknown Unknown Verified 01/04/17 12:39 Inhibitor Iodinated Contrast- Oral and AdvReac shakes Verified 01/04/17 12:39 IV Dye [Iodinated Contrast Media - IV Dye] Physical Exam Vitals: Vital Signs Temp Pulse Pulse Resp BP BP Pulse Ox 03/07/17 14:31 98.2 F 60 18 96/47 94 L 03/07/17 11:02 68 03/07/17 10:49 68 03/07/17 07:18 66 03/07/17 07:03 62 03/07/17 07:00 98.1 F 69 18 134/65 94 L 03/06/17 22:55 97.4 F L 60 16 121/57 98 03/06/17 21:00 97.8 F 60 16 125/60 94 L 03/06/17 19:34 78 18 132/64 99 03/06/17 18:27 98.4 F 63 18 130/58 95 Intake and Output 03/07/17 03/07/17 03/07/17 06:59 14:59 22:59 Intake Total 240 Balance 240 Intake: Oral 240 Other: Voiding Method Toilet Toilet Toilet # Voids 2 3 Weight 122.47 kg 122.47 kg Patient Weight 03/08/17 06:59 Weight 122.47 kg - Constitutional General appearance: average body habitus - EENT Eyes: EOMI, PERRLA - Neck Neck: no lymphadenopathy - Respiratory Respiratory: bilateral: diminished - Cardiovascular Rhythm: regular - Gastrointestinal General gastrointestinal: no distended, no tenderness - Integumentary Integumentary: ulcer (Large >5 cm posterior left scalp lesion has eroded calvarium and involves underlying dura - rolled erythematous edges. ) - Neurologic Neurologic: CNII-XII intact - Musculoskeletal Musculoskeletal: strength equal bilaterally - Psychiatric Psychiatric: appropriate affect Results CBC & Chem 7: 03/07/17 07:34 03/07/17 07:34 Labs: Abnormal Lab Results - Last 24 Hours (Table) 03/06/17 03/06/17 03/07/17 Range/Units 19:05 19:05 07:09 RBC 3.65 L (4.30-5.90) m/uL Hgb 11.4 L (13.0-17.5) gm/dL Hct 33.7 L (39.0-53.0) % Chloride (98-107) mmol/L Carbon Dioxide (22-30) mmol/L BUN 21 H (9-20) mg/dL Creatinine 1.42 H (0.66-1.25) mg/dL Glucose 129 H (74-99) mg/dL POC Glucose (mg/dL) 106 H (75-99) mg/dL Hemoglobin A1c (4.2-6.1) % Alkaline Phosphatase 128 H (38-126) U/L 03/07/17 03/07/17 03/07/17 Range/Units 07:34 07:34 07:34 RBC 3.75 L (4.30-5.90) m/uL Hgb 11.8 L (13.0-17.5) gm/dL Hct 35.4 L (39.0-53.0) % Chloride 97 L (98-107) mmol/L Carbon Dioxide 35 H (22-30) mmol/L BUN 22 H (9-20) mg/dL Creatinine 1.36 H (0.66-1.25) mg/dL Glucose 114 H (74-99) mg/dL POC Glucose (mg/dL) (75-99) mg/dL Hemoglobin A1c 9.7 H (4.2-6.1) % Alkaline Phosphatase 128 H (38-126) U/L 03/07/17 Range/Units 11:08 RBC (4.30-5.90) m/uL Hgb (13.0-17.5) gm/dL Hct (39.0-53.0) % Chloride (98-107) mmol/L Carbon Dioxide (22-30) mmol/L BUN (9-20) mg/dL Creatinine (0.66-1.25) mg/dL Glucose (74-99) mg/dL POC Glucose (mg/dL) 158 H (75-99) mg/dL Hemoglobin A1c (4.2-6.1) % Alkaline Phosphatase (38-126) U/L CT Scan - head: pending Assessment and Plan Plan: 1. Squamous cell carcinoma of scalp with intractable pain: We have requested records from the [facility] including a recent biopsy. The patient reportedly has an outside CT-brain showing a left-frontal lesion that invades the brain and causes calvarial destruction. Unfortunately, the patient's pain does appear to be multifocal. Recently he is reporting pain over his left eye - an area with a known metastasis and calvarial destruction. He reports different areas of his head causing him pain at different times. He may benefit from palliative radiotherapy, but we will need to review his outside imaging. It may be more expedient to order an inpatient CT-brain for further evaluation. The patient does at least appear comfortable now with his pain well controlled in the hospital. Time with Patient: Greater than 30
[2017-03-07] MEDS: oxyCODONE-APAP 10-325MG 1 EACH TAB PO SCH ×3 (16:34→23:52)
[2017-03-07 17:19] LABS: Glucose,Whole Blood 163 mg/dL (75-99)
[2017-03-07] MEDS ORDERED: FERROUS SULFATE 325 MG TAB PO SCH (17:30)
[2017-03-07] MEDS ORDERED: FOLIC ACID 1 MG TAB PO SCH (17:30)
[2017-03-07] MEDS ORDERED: NON-FORMULARY DRUG (Omega-3 Fatty Acids/Fish Oil [Fish Oil 1,000 Mg Softgel] 1 CAP) PO SCH (17:30)
[2017-03-07] MEDS ORDERED: ASPIRIN 81 MG CHEW PO SCH (17:30)
[2017-03-07] MEDS: HYDROmorphone 1 MG/ML 1 ML SYRINGE IVP PRN ×3 (18:03→22:22)
--- NOTE | 2017-03-07 19:44 | CT ---
EXAMINATION TYPE: CT brain wo con DATE OF EXAM: 03/07/2017 COMPARISON: NONE HISTORY: Evaluate left frontal calvarial metastases. Hx of squamos cell carcinoma. CT DLP: 944.9 mGycm Automated exposure control for dose reduction was used. FINDINGS: Ventricles and sulci appear normal. There is no mass effect nor midline shift. There is no sign of in tracranial hemorrhage. There is a 3.5 cm lytic lesion involving the left frontal skull in the frontal bone. This involves the inner and outer table. There is soft tissue mass associated. There is left o ccipital scalp soft tissue swelling. There is possible ulcerated skin defect over the left occipital bone. This should be correlated with the physical exam. IMPRESSION: NO INTRACRANIAL ABNORMALITY. 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 NO EVIDENCE OF INTRACRANIAL DEFINITE INVASION. LEFT OCCIPITAL SCALP ULCERATION WITH SWELLING.
[2017-03-07 20:00] VITALS: RESP 16
[2017-03-07] MEDS ORDERED: TAMSULOSIN 0.4 MG CAP.ER.24H PO SCH (21:00)
[2017-03-07] MEDS ORDERED: PANTOPRAZOLE 40 MG TABLET PO SCH (21:00)
[2017-03-07] MEDS ORDERED: POTASSIUM CHLORIDE ER 20 MEQ TAB.ER PO SCH (21:00)
[2017-03-07] MEDS ORDERED: MAGNESIUM OXIDE 400 MG TAB PO SCH (21:00)
[2017-03-07 21:02] LABS: Glucose,Whole Blood 207 mg/dL (75-99)
[2017-03-08] MEDS: oxyCODONE-APAP 10-325MG 1 EACH TAB PO SCH ×3 (05:50→11:33)
[2017-03-08 07:07] LABS: Glucose,Whole Blood 96 mg/dL (75-99)
[2017-03-08] MEDS: BUDESONIDE 0.5 MG/2 ML NEBU INHALATION SCH (07:50)
[2017-03-08] MEDS: IPRATROPIUM-ALBUTEROL 3 ML NEB INHALATION SCH ×2 (07:50→11:55)
[2017-03-08 07:55] VITALS: BP 102/59; TEMP 97.6
[2017-03-08] MEDS: INSULIN LISPRO (humaLOG) 300 UNIT/3 ML VIAL SQ SCH ×3 (09:02→11:42)
[2017-03-08] MEDS: INSULIN GLARGINE 100 UNIT/ML 10 ML VIAL SQ SCH (09:02)
[2017-03-08] MEDS: URSODIOL 300 MG CAP PO SCH (09:03)
[2017-03-08] MEDS: FLUoxetine HCL 10 MG CAP PO SCH (09:03)
[2017-03-08] MEDS: FUROSEMIDE 40 MG TAB PO SCH (09:03)
[2017-03-08] MEDS: NYSTATIN 100,000UNIT/GM CREAM 30 GM TUBE TOPICAL SCH (09:04)
[2017-03-08] MEDS: METOLAZONE 2.5 MG TAB PO SCH (09:04)
[2017-03-08] MEDS: LEVOTHYROXINE 100 MCG TAB PO SCH (09:04)
[2017-03-08] MEDS: GABAPENTIN 300 MG CAP PO SCH (09:04)
[2017-03-08] MEDS: LACTOBACILLUS ACIDOPH & BULGAR 1 EACH PACKET PO SCH (09:04)
[2017-03-08] MEDS: LORATADINE 10 MG TAB PO SCH (09:04)
[2017-03-08] MEDS: metFORMIN 500 MG TAB PO SCH (09:04)
[2017-03-08] MEDS: LISINOPRIL 5 MG TAB PO SCH (09:06)
[2017-03-08] MEDS: METOPROLOL TARTRATE 25 MG TAB PO SCH (09:17)
[2017-03-08 11:28] VITALS: PULSE 73
--- NOTE | 2017-03-08 11:46 | P.DS ---
Providers Date of admission: 03/07/17 11:12 Expected date of discharge: 03/08/17 Attending physician: Lazaro Bailey Consults: 03/06/17 19:24 Consult Physician Routine Consulting Provider: Stewart Schultz Consult Reason/Comments: Squamous cell carcinoma Do you want consulting provider notified?: Yes [facility] Course: This is an 87-year-old male who was admitted to the hospital on 03/06/2017 for uncontrolled pain. 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 He also has lesions on his liver and chest that have never been biopsied as the patient has refused biopsy in the past. His cancer treatment has been performed at [facility] but the patient is requesting to have radiation locally. The patient was admitted for pain control. He is to follow-up outpatient for radiation and patient has an appointment scheduled R Gerald at this time. The patient was seen and examined this morning by Dr. Bailey who states the patient is stable for discharge and to follow up outpatient. Dr. Hardy states the patient is to be discharged home on all his home medications and there is no new prescriptions to be sent for the patient. discharge diagnosis: 1. 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 Chronic diastolic congestive heart failure 3. Chronic end-stage COPD, no evidence of acute exacerbation 4. History of essential hypertension 5. History of chronic kidney disease The above impression and plan of care have been discussed and directed by signing physician. Sintia Bartholomew, nurse practitioner, acting as scribe for signing physician. Patient Condition at Discharge: Stable Plan - Discharge Summary New Discharge Prescriptions: Continue Omeprazole [PriLOSEC] 20 mg PO HS Aspirin EC [Ecotrin Low Dose] 81 mg PO AC-SUPPER Folic Acid 1 mg PO AC-SUPPER Lisinopril [Zestril] 5 mg PO DAILY [place]-3 Fatty Acids/Fish Oil [Fish Oil 1,000 mg Softgel] 1 cap PO AC-SUPPER Potassium Chloride ER [K-Dur 20] 20 meq PO HS metFORMIN HCL 1,000 mg PO BID Tamsulosin [Flomax] 0.4 mg PO HS Magnesium Oxide [Mag-Ox] 400 mg PO HS Fluticasone Nasal Swisher [Flonase Nasal Swisher] 2 spray EA NOSTRIL HS Metoprolol Tartrate [Lopressor] 25 mg PO BID Gabapentin [Neurontin] 300 mg PO BID Insulin Glargine [Lantus] 26 unit SQ QAM Ursodiol [Marcos] 250 mg PO DAILY Ipratropium-Albuterol Nebulize [Duoneb 0.5 mg-3 mg/3 ml Soln] 3 ml INHALATION RT-QID #120 ampul.neb FLUoxetine HCL [PROzac] 10 mg PO DAILY Ferrous Sulfate [Iron (65 MG Elemental)] 325 mg PO AC-SUPPER Cyanocobalamin [Vitamin B-12 Injection] 1,000 mcg SQ QMONTH Metolazone [Zaroxolyn] 2.5 mg PO AC-BRKFST SILVER sulfADIAZINE CREAM [Silvadene Cream] 1 applic TOPICAL DAILY Nystatin 100,000Unit/gm Cream [Mycostatin Cream] 1 applic TOPICAL BID Loratadine [Claritin] 10 mg PO DAILY Levothyroxine Sodium [Synthroid] 100 mcg PO DAILY Lactobacillus Acidophilus [Acidophilus] 1 tab PO DAILY Insulin Aspart [NovoLOG Flexpen] See Protocol SQ AC-TID HYDROcodone/APAP 10-325MG [[place] 10-325] 1 tab PO Q4H PRN PRN Reason: Pain Furosemide [Lasix] 20 mg PO BID PRN PRN Reason: Edema Budesonide-Formot 160-4.5 Mcg [Symbicort 160-4.5 Mcg Inhaler] 2 puff INHALATION RT-BID Discharge Medication List Aspirin EC [Ecotrin Low Dose] 81 mg PO AC-SUPPER 10/13/14 [History] Folic Acid 1 mg PO AC-SUPPER 10/13/14 [History] Lisinopril [Zestril] 5 mg PO DAILY 10/13/14 [History] Omeprazole [PriLOSEC] 20 mg PO HS 10/13/14 [History] [place]-3 Fatty Acids/Fish Oil [Fish Oil 1,000 mg Softgel] 1 cap PO AC-SUPPER [History] Potassium Chloride ER [K-Dur 20] 20 meq PO HS 08/24/15 [History] metFORMIN HCL 1,000 mg PO BID 02/21/16 [History] Fluticasone Nasal Swisher [Flonase Nasal Swisher] 2 spray EA NOSTRIL HS 03/25/16 [ History] Magnesium Oxide [Mag-Ox] 400 mg PO HS 03/25/16 [History] Tamsulosin [Flomax] 0.4 mg PO HS 03/25/16 [History] Gabapentin [Neurontin] 300 mg PO BID 08/11/16 [History] Insulin Glargine [Lantus] 26 unit SQ QAM 08/11/16 [History] Metoprolol Tartrate [Lopressor] 25 mg PO BID 08/11/16 [History] Ursodiol [Marcos] 250 mg PO DAILY 08/30/16 [History] Ipratropium-Albuterol Nebulize [Duoneb 0.5 mg-3 mg/3 ml Soln] 3 ml INHALATION RT -QID #120 ampul.neb 09/27/16 [Rx] Cyanocobalamin [Vitamin B-12 Injection] 1,000 mcg SQ QMONTH 11/04/16 [History] FLUoxetine HCL [PROzac] 10 mg PO DAILY 11/04/16 [History] Ferrous Sulfate [Iron (65 MG Elemental)] 325 mg PO AC-SUPPER 11/04/16 [History] Metolazone [Zaroxolyn] 2.5 mg PO AC-BRKFST 11/04/16 [History] Insulin Aspart [NovoLOG Flexpen] See Protocol SQ AC-TID 01/04/17 [History] Lactobacillus Acidophilus [Acidophilus] 1 tab PO DAILY 01/04/17 [History] Levothyroxine Sodium [Synthroid] 100 mcg PO DAILY 01/04/17 [History] Loratadine [Claritin] 10 mg PO DAILY 01/04/17 [History] Nystatin 100,000Unit/gm Cream [Mycostatin Cream] 1 applic TOPICAL BID 01/04/17 [ History] SILVER sulfADIAZINE CREAM [Silvadene Cream] 1 applic TOPICAL DAILY 01/04/17 [ History] Budesonide-Formot 160-4.5 Mcg [Symbicort 160-4.5 Mcg Inhaler] 2 puff INHALATION RT-BID 03/07/17 [History] Furosemide [Lasix] 20 mg PO BID PRN 03/07/17 [History] HYDROcodone/APAP 10-325MG [[place] 10-325] 1 tab PO Q4H PRN 03/07/17 [History] Follow up Appointment(s)/Referral(s): Lazaro Bailey MD [Primary Care Provider] - 1-2 days Stewart Schultz MD [STAFF PHYSICIAN] - 03/24/17 3:30 pm Discharge Disposition: HOME SELF-CARE
[2017-03-08] MEDS: HYDROmorphone 1 MG/ML 1 ML SYRINGE IVP PRN (12:23)
[2017-03-08 14:06] LABS: Glucose,Whole Blood 173 mg/dL (75-99)
--- NOTE | 2017-03-08 19:02 | PN ---
SUBJECTIVE: 87 -year-old white male who was admitted with squamous cell carcinoma, seen by radiation oncologist who does not want to treat the patient with any radiation at this time due to extreme weakness. Surgical is ruled out. Home medications for diabetes and hypertension are given. Vital signs stable. Afebrile. Cardiovascular: S1, S2. Lungs are clear. Integument shows scalp lesions as mentioned above. PLAN: Continue in the next 24 to 48 hours for possible treatment and discharge home as radiation is not going to be done. Alternative sources of cancer treatment will be decided per family. MTDD
== END 2017-03-08 12:55 | disposition home or self-care (01) | DRG 948 ==
LOC: EC 18:25 → 5ONC 20:02 → OBSVTOIN 03-07 11:12
PROVIDERS: ADMIT Family Medicine; ATTEND Family Medicine
DX: G89.3 Neoplasm related pain (acute) (chronic) (principal); C78.00 Secondary malignant neoplasm of unspecified lung; C78.7 Secondary malignant neoplasm of liver and intrahepatic bile duct; I13.0 Hypertensive heart and chronic kidney disease with heart failure and stage 1 through stage 4 chronic kidney disease, or unspecified chronic kidney disease; C79.31 Secondary malignant neoplasm of brain; I50.32 Chronic diastolic (congestive) heart failure; F03.90 Unspecified dementia, unspecified severity, without behavioral disturbance, psychotic disturbance, mood disturbance, and anxiety; E44.1 Mild protein-calorie malnutrition; J44.9 Chronic obstructive pulmonary disease, unspecified; C44.42 Squamous cell carcinoma of skin of scalp and neck; K21.9 Gastro-esophageal reflux disease without esophagitis; E78.5 Hyperlipidemia, unspecified; E11.22 Type 2 diabetes mellitus with diabetic chronic kidney disease; E03.9 Hypothyroidism, unspecified; G47.30 Sleep apnea, unspecified; M19.90 Unspecified osteoarthritis, unspecified site; N18.3 Chronic kidney disease, stage 3 (moderate); Z79.4 Long term (current) use of insulin; Z79.51 Long term (current) use of inhaled steroids; Z79.899 Other long term (current) drug therapy; Z80.6 Family history of leukemia; Z87.891 Personal history of nicotine dependence; Z95.0 Presence of cardiac pacemaker; R26.9 Unspecified abnormalities of gait and mobility; R53.1 Weakness; M54.9 Dorsalgia, unspecified; F41.9 Anxiety disorder, unspecified; F32.9 Major depressive disorder, single episode, unspecified; Z79.82 Long term (current) use of aspirin; Z79.84 Long term (current) use of oral hypoglycemic drugs; Z88.8 Allergy status to other drugs, medicaments and biological substances; Z68.29 Body mass index [BMI] 29.0-29.9, adult
CPT/HCPCS: 36415; 70450; 80053; 83036; 83735; 85025; 94640; 96374; 96375; 99284

== ENCOUNTER 2017-03-15 04:08 | Inpatient (IN) | payer MEDICARE, BC ==
[2017-03-15] MEDS ORDERED: HYDROmorphone 1 MG/ML 1 ML SYRINGE IM STA ×2 (04:37→06:58)
--- NOTE | 2017-03-15 05:27 | ED ---
Headache HPI - General Source: patient Mode of arrival: EMS Limitations: no limitations - History of Present Illness MD Complaint: headache -: hour(s) Onset Description: at rest Location: frontal Severity: severe Quality: aching Consistency: constant Improves With: medication Worsens With: none Context: occurred at rest Treatments Prior to Arrival: prescription analgesic <Loy Yoder - Last Filed: 03/15/17 05:23> <Hermelindo Winchester - Last Filed: 03/15/17 08:20> - General Chief Complaint: Headache Stated Complaint: Generalized pain Time Seen by Provider: 03/15/17 04:28 - History of Present Illness Initial Comments: This patient is an 87-year-old man with history of metastatic squamous cell carcinoma. He has known lesion of the calvarium which has been causing him pain. He did have recent admission for this and his medication at that time was change from [place] to Percocet. The patient states that the pain flared up tonight and after he took his Percocet he only had mild relief of the pain. He phoned his physician and was instructed that he should not take any further medication but should be seen in the emergency department. The patient denies any new symptoms. He states that the pain is in the same location and of the same character but is more severe tonight. The patient does have follow-up already scheduled with radiation oncology to see about palliative treatment. Patient denies any fevers or chills, neck pain, or any neurologic symptoms. ( Loy Yoder) - Related Data Home Medications Medication Instructions Recorded Confirmed Aspirin EC [Ecotrin Low Dose] 81 mg PO AC-SUPPER 10/13/14 03/15/17 Folic Acid 1 mg PO AC-SUPPER 10/13/14 03/15/17 Lisinopril [Zestril] 5 mg PO DAILY 10/13/14 03/15/17 Omeprazole [PriLOSEC] 20 mg PO HS 10/13/14 03/15/17 [place]-3 Fatty Acids/Fish Oil [Fish 1 cap PO DAILY@1200 08/24/15 03/15/17 Oil 1,000 mg Softgel] Potassium Chloride ER [K-Dur 20] 20 meq PO HS 08/24/15 03/15/17 metFORMIN HCL 1,000 mg PO BID@0800,1200 02/21/16 03/15/17 Fluticasone Nasal [place] [Flonase 1 - 2 spray EA NOSTRIL BID 03/25/16 03/15/17 Nasal [place]] Magnesium Oxide [Mag-Ox] 400 mg PO HS 03/25/16 03/15/17 Tamsulosin [Flomax] 0.4 mg PO HS 03/25/16 03/15/17 Gabapentin [Neurontin] 300 mg PO BID 08/11/16 03/15/17 Insulin Glargine [Lantus] 30 unit SQ QAM 08/11/16 03/15/17 Metoprolol Tartrate [Lopressor] 25 mg PO BID@0800,1200 08/11/16 03/15/17 Ursodiol [Marcos] 250 mg PO HS 08/30/16 03/15/17 FLUoxetine HCL [PROzac] 10 mg PO DAILY 11/04/16 03/15/17 Ferrous Sulfate [Iron (65 MG 325 mg PO DAILY@1200 11/04/16 03/15/17 Elemental)] Metolazone [Zaroxolyn] 2.5 mg PO AC-BRKFST 11/04/16 03/15/17 Insulin Aspart [NovoLOG Flexpen] See Protocol SQ AC-TID 01/04/17 03/15/17 Lactobacillus Acidophilus 1 tab PO DAILY 01/04/17 03/15/17 [Acidophilus] Levothyroxine Sodium [Synthroid] 100 mcg PO DAILY 01/04/17 03/15/17 Loratadine [Claritin] 10 mg PO DAILY 01/04/17 03/15/17 SILVER sulfADIAZINE CREAM 1 applic TOPICAL DAILY 01/04/17 03/15/17 [Silvadene Cream] Budesonide-Formot 160-4.5 Mcg 2 puff INHALATION RT-BID 03/07/17 03/15/17 [Symbicort 160-4.5 Mcg Inhaler] Furosemide [Lasix] 20 mg PO BID PRN 03/07/17 03/15/17 Cyanocobalamin (Vitamin B-12) 1,000 mcg PO DAILY 03/15/17 03/15/17 [Vitamin B-12] oxyCODONE-APAP 10-325MG [Percocet 1 tab PO Q6HR PRN 03/15/17 03/15/17 10-325 mg] Previous Rx's Medication Instructions Recorded Ipratropium-Albuterol Nebulize 3 ml INHALATION RT-QID #120 09/27/16 [Duoneb 0.5 mg-3 mg/3 ml Soln] ampul.neb Allergies Allergy/AdvReac Type Severity Reaction Status Date / Time Joxcoyc-Ktj-Wlq Reductase AdvReac Unknown Unknown Verified 03/15/17 07:29 Inhibitor Iodinated Contrast- Oral and AdvReac shakes Verified 03/15/17 07:29 IV Dye [Iodinated Contrast Media - IV Dye] Review of Systems ROS Other: All systems not noted in ROS Statement are negative. Constitutional: Denies: fever, chills, weakness Eyes: Denies: vision change Respiratory: Denies: cough, dyspnea Cardiovascular: Denies: chest pain Gastrointestinal: Denies: abdominal pain Musculoskeletal: Denies: back pain Skin: Denies: rash Neurological: Reports: as per HPI, headache. Denies: weakness, numbness, paresthesias, confusion <Loy Yoder - Last Filed: 03/15/17 05:23> ROS Other: All systems not noted in ROS Statement are negative. <Hermelindo Winchester - Last Filed: 03/15/17 08:20> ROS Statement: Those systems with pertinent positive or pertinent negative responses have been documented in the HPI. Past Medical History Past Medical History: Cancer, Heart Failure, Diabetes Mellitus, GERD/Reflux, Hyperlipidemia, Hypertension, Liver Disease, Osteoarthritis (OA), Sleep Apnea/ CPAP/BIPAP, Thyroid Disorder Additional Past Medical History / Comment(s): HX jaundice age 11, SKIN CANCER- removal recently on head with open wound , SWELLING of ankles, hx ANEMIA, USES CANE, bradycardia, hiatal hernia, hs ulcer, mets to brain, back pain History of Any Multi-Drug Resistant Organisms: None Reported Past Surgical History: Appendectomy, Cholecystectomy, Hernia Repair, Pacemaker, Tonsillectomy Additional Past Surgical History / Comment(s): lana CATARACTS WITH LENS IMPLANT, SKIN CANCER removed from head x3 Past Anesthesia/Blood Transfusion Reactions: No Reported Reaction Type of Cardiac Device: Permanent Pacemaker Device Placement Date:: 08/2015 Past Psychological History: Anxiety, Depression Smoking Status: Former smoker Past Alcohol Use History: None Reported Past Drug Use History: None Reported - Past Family History Mother Family Medical History: No Reported History, Cancer Additional Family Medical History / Comment(s): LEUKEMIA Father Additional Family Medical History / Comment(s): WOUNDED IN WW1, MULTIPLE INJURES -LIVED TILL AGE 89 Brother(s) Family Medical History: Cancer <Loy Yoder - Last Filed: 03/15/17 05:23> General Exam General appearance: alert, in no apparent distress Head exam: Present: atraumatic Eye exam: Present: normal appearance, PERRL, EOMI. Absent: scleral icterus, conjunctival injection Neck exam: Present: normal inspection, full ROM. Absent: meningismus Respiratory exam: Present: normal lung sounds bilaterally. Absent: respiratory distress, wheezes, rales, rhonchi, stridor Cardiovascular Exam: Present: regular rate, normal rhythm, normal heart sounds. Absent: systolic murmur, diastolic murmur, rubs, gallop GI/Abdominal exam: Present: soft. Absent: tenderness Neurological exam: Present: alert, oriented X3, CN II-XII intact. Absent: motor sensory deficit Skin exam: Present: warm, dry, normal color <EdsonnathanLoy - Last Filed: 03/15/17 05:23> Medical Decision Making <PareshLoy - Last Filed: 03/15/17 05:23> <Hermelindo Winchester - Last Filed: 03/15/17 08:20> - Medical Decision Making 87 male to the ER now for reevaluation regarding chronic pain. Patient's pain is well-controlled this time, is plethora of pain medications to last him for quite a long time. Patient can be discharged home (Hermelindo Winchester) Disposition <PareshLoy - Last Filed: 03/15/17 05:23> <Hermelindo Winchester - Last Filed: 03/15/17 08:20> Clinical Impression: Skin lesion, Squamous cell carcinoma, Skin carcinoma Disposition: HOME SELF-CARE Condition: Good Instructions: Acute Headache (ED) Referrals: Lazaro Bailey MD [Primary Care Provider] - 1-2 days
[2017-03-15] MEDS ORDERED: HYDROmorphone 1 MG/ML 1 ML SYRINGE IVP STA (06:47)
[2017-03-15] MEDS ORDERED: SODIUM CHLORIDE 0.9% 1,000 ML IV STA ×2 (08:44)
[2017-03-15] MEDS ORDERED: HYDROmorphone 2 MG/ML 1 ML SYRINGE IVP STA (08:45)
[2017-03-15] MEDS ORDERED: SODIUM CHLORIDE 0.9% 1,000 ML IV ONE (08:45)
--- NOTE | 2017-03-15 08:48 | ED ---
Medical Decision Making - Medical Decision Making 87 male, spoke with patient's family physician who wants patient admitted to hospital, based on pain control his pain is out of control and unable to be control at this time, did speak with Dr. Schultz this patient's radiation oncologist, does have appointment next week, he was okay patient going home. I rechecked the patient patient's pain was out of control, and decision was made to keep patient hospital Disposition Clinical Impression: Skin lesion, Squamous cell carcinoma, Skin carcinoma Disposition: ADMITTED IP TO THIS HOSP Condition: Good Instructions: Acute Headache (ED) Referrals: Lazaro Bailey MD [Primary Care Provider] - 1-2 days
[2017-03-15 09:12] LABS: Basophils # (A) 0.1 k/uL (0-0.2); Basophils % (A) 1 %; CH 30.9; CHCM 33.5; Eosinophils # (A) 0.4 k/uL (0-0.7); Eosinophils % (A) 5 %; HCT 33.5 % (39.0-53.0); HDW 2.85; HGB 11.5 gm/dL (13.0-17.5); Luc # (Auto) 0.18; Luc % (Auto) 2; Lymphocytes # (A) 2.2 k/uL (1.0-4.8); Lymphocytes % (A) 23 %; MCHC 34.5 g/dL (31.0-37.0); MCV 92.7 fL (80.0-100.0); Mean Platelet Volume 6.7; Monocytes # (A) 0.6 k/uL (0-1.0); Monocytes % (A) 6 %; Neutrophils % (A) 64 %; RBC 3.61 m/uL (4.30-5.90); RDW 13.6 % (11.5-15.5); WBC 9.4 k/uL (3.8-10.6); WBC (Perox) 9.57
[2017-03-15 09:26] LABS: Partial Thromboplastin Time 22.8 sec (22.0-30.0); Prothrombin Time 10.3 sec (9.0-12.0)
[2017-03-15 09:29] LABS: ALT 46 U/L (21-72); AST 35 U/L (17-59); Alkaline Phosphatase 167 U/L (38-126); Anion Gap 10 mmol/L; Blood Urea Nitrogen 22 mg/dL (9-20); Calcium 9.4 mg/dL (8.4-10.2); Carbon Dioxide 32 mmol/L (22-30); Chloride 96 mmol/L (98-107); Glucose 188 mg/dL (74-99); Magnesium 1.4 mg/dL (1.6-2.3); Non-African American GFR(MDRD) 52 (>60 ml/min/1.73 sqM); Phosphorous 3.3 mg/dL (2.5-4.5); Potassium 4.1 mmol/L (3.5-5.1); Sodium 138 mmol/L (137-145); Total Bilirubin 0.5 mg/dL (0.2-1.3); Total Protein 7.6 g/dL (6.3-8.2)
[2017-03-15 09:41] LABS: Creatine Kinase 57 U/L (55-170)
[2017-03-15 09:54] LABS: Creatine Kinase MB 1.4 ng/mL (0.0-2.4); Troponin I <0.012 ng/mL (0.000-0.034)
[2017-03-15] MEDS: MORPHINE SULFATE ER 30 MG TABLET PO SCH ×2 (10:13→21:17)
[2017-03-15] MEDS: HYDROmorphone 1 MG/ML 1 ML SYRINGE IVP PRN ×4 (10:13→22:31)
[2017-03-15] MEDS: ENOXAPARIN 40 MG/0.4 ML SYRINGE SQ SCH (12:06)
[2017-03-15 15:48] LABS: Appearance,Urine Clear (Clear); Bilirubin,Urine Negative (Negative); Glucose,Urine (UA) 1+ (Negative); Ketones,Urine Negative (Negative); Leukocyte Esterase,Urine Negative (Negative); Nitrite,Urine Negative (Negative); Protein,Urine Negative (Negative); Specific Gravity,Urine 1.013 (1.001-1.035); UA Billing (MACRO vs. MICRO) CHEM; Urobilinogen,Urine <2.0 mg/dL (<2.0)
[2017-03-15] MEDS ORDERED: FUROSEMIDE 20 MG TAB PO PRN (17:50)
--- NOTE | 2017-03-15 18:29 | CONS ---
CONSULTATION DATE OF SERVICE: 03/15/2017 REASON FOR CONSULTATION: Squamous cell carcinoma involving the scalp. HISTORY OF PRESENT ILLNESS: Ryne Marte is an 87-year-old gentleman who was seen as an inpatient consultation by Dr. Stewart Schultz of Radiation Oncology on 03/07/2017. At that time patient was seen regarding multiple lesions involving the scalp from squamous cell carcinoma. Patient also had known pulmonary nodules in the chest consistent with metastasis. The patient has multiple comorbidities and was not an optimal surgical candidate. Palliative options were presented to the patient and included palliative radiation therapy to the enlarging scalp lesions. Patient was started on pain management; however, his pain was unresponsive to outpatient treatment and he was subsequently admitted for supportive care, including adequate pain management and treatment. On this admission, patient's pain medication has been adjusted and he reports interval improvement of associated scalp pain and discomfort. PAST MEDICAL HISTORY: As per HPI: 1. Heart failure. 2. Diabetes. 3. Reflux. 4. Hyperlipidemia. 5. Hypertension. 6. Liver disease. 7. Osteoarthritis. 8. Sleep apnea. 9. Thyroid disorder. PAST SURGICAL HISTORY: 1. Appendectomy. 2. Cholecystectomy. 3. Herniae repair. 4. Pacemaker placed. 5. Tonsillectomy. MEDICATIONS: 1. Oxycodone. 2. Metformin. 3. Ursodiol. 4. Tamsulosin. 5. Silver sulfadiazine cream. 6. Potassium chloride. 7. Omeprazole. 8. [place]-3 fatty acids. 9. Metoprolol. 10.Metolazone. 11.Magnesium oxide. 12.Loratadine. 13.Lisinopril. 14.Levothyroxine. 15.Ipratropium-albuterol. 16.Insulin. 17.Gabapentin. 18.Furosemide. 19.Folic acid. 20.Fluticasone. 21.Ferrous sulfate. 22.Fluoxetine. 23.Vitamin B12. 24.Symbicort. 25.Aspirin. PHYSICAL EXAM: Well-developed, well-nourished, elderly gentleman in no acute distress. Performance status is fair. VITAL SIGNS: Temperature 97.6, pulse 66, respirations 16, blood pressure 161/70 , oxygen saturation 95%. HEENT examination shows known scalp lesions involving the anterior and posterior part of the scalp with associated skin involvement as well as cortical involvement of the skull. There is no apparent brain parynchymal involvement based on imaging. NECK: Without palpable lymphadenopathy. CHEST: Clear to auscultation. HEART: Regular rate and rhythm. ABDOMEN: Round, soft, non-tender. There is no organomegaly or masses. Extremities show minimal edema. On neurologic exam, he is alert and oriented x3. Gait not assessed. Sensation is intact. ASSESSMENT: An 87-year-old male patient with squamous cell carcinoma involving multiple regions of the scalp with pulmonary nodules which are metastatic. Patient has multiple comorbidities and is not an optimal surgical candidate. The patient is admitted for pain management with subsequent improvement in associated pain. Palliative radiation therapy to scalp for pain control and to prevent further spread of scalp lesion is recommended. Due to patient's comorbidities and current clinical status, radiation therapy can take place on an outpatient basis. In the interim, patient will be best served with inpatient rehabilitation as well. I will continue to follow his case and offer recommendations if needed. MMODL / IJN: [id number] / MTDD
[2017-03-15] MEDS: IPRATROPIUM-ALBUTEROL 3 ML NEB INHALATION SCH (20:05)
[2017-03-15] MEDS: SYMBICORT 160-4.5 MCG INHALER INHALATION SCH (20:05)
[2017-03-15 20:18] LABS: Glucose,Whole Blood 247 mg/dL (75-99)
[2017-03-15 20:38] LABS: Hemoglobin A1C 9.6 % (4.2-6.1)
[2017-03-15] MEDS ORDERED: URSODIOL 250 MG PO SCH (21:00)
[2017-03-15] MEDS ORDERED: amLODIPine 5 MG TAB PO STA (21:10)
[2017-03-15] MEDS ORDERED: FUROSEMIDE 10 MG/ML 4 ML VIAL IV STA (21:10)
[2017-03-15] MEDS: ONDANSETRON 4 MG/2 ML VIAL IVP PRN (21:18)
[2017-03-15] MEDS: POTASSIUM CHLORIDE ER 20 MEQ TAB.ER PO SCH (21:38)
[2017-03-15] MEDS: GABAPENTIN 300 MG CAP PO SCH (21:39)
[2017-03-15] MEDS: TAMSULOSIN 0.4 MG CAP.ER.24H PO SCH (21:39)
[2017-03-15] MEDS: PANTOPRAZOLE 40 MG TABLET PO SCH (21:39)
[2017-03-15] MEDS: MAGNESIUM OXIDE 400 MG TAB PO SCH (21:39)
[2017-03-15] MEDS: FLUTICASONE 50MCG/SPRAY NASAL 16GM EA NOSTRIL SCH (21:43)
[2017-03-15] MEDS: INSULIN LISPRO (humaLOG) 300 UNIT/3 ML VIAL SQ SCH (21:44)
[2017-03-16] MEDS: HYDROmorphone 1 MG/ML 1 ML SYRINGE IVP PRN ×4 (01:40→21:47)
[2017-03-16] MEDS: LEVOTHYROXINE 100 MCG TAB PO SCH (06:05)
[2017-03-16 07:17] LABS: Glucose,Whole Blood 194 mg/dL (75-99)
[2017-03-16] MEDS: IPRATROPIUM-ALBUTEROL 3 ML NEB INHALATION SCH ×4 (07:36→20:02)
[2017-03-16] MEDS: SYMBICORT 160-4.5 MCG INHALER INHALATION SCH ×2 (07:36→20:02)
[2017-03-16] MEDS: metFORMIN 500 MG TAB PO SCH ×2 (08:01→11:50)
[2017-03-16] MEDS: INSULIN LISPRO (humaLOG) 300 UNIT/3 ML VIAL SQ SCH ×4 (08:01→21:28)
[2017-03-16] MEDS: METOPROLOL TARTRATE 25 MG TAB PO SCH ×2 (08:02→11:50)
[2017-03-16] MEDS: METOLAZONE 2.5 MG TAB PO SCH (08:02)
[2017-03-16] MEDS: ENOXAPARIN 40 MG/0.4 ML SYRINGE SQ SCH (08:04)
[2017-03-16] MEDS: GABAPENTIN 300 MG CAP PO SCH (08:05)
[2017-03-16] MEDS: FLUTICASONE 50MCG/SPRAY NASAL 16GM EA NOSTRIL SCH ×2 (08:05→21:28)
[2017-03-16] MEDS: FLUoxetine HCL 10 MG CAP PO SCH (08:05)
[2017-03-16] MEDS: LORATADINE 10 MG TAB PO SCH (08:06)
[2017-03-16] MEDS: LISINOPRIL 5 MG TAB PO SCH (08:06)
[2017-03-16] MEDS: INSULIN GLARGINE 100 UNIT/ML 10 ML VIAL SQ SCH (08:14)
[2017-03-16] MEDS: MORPHINE SULFATE ER 30 MG TABLET PO SCH (08:14)
[2017-03-16 11:15] LABS: Glucose,Whole Blood 214 mg/dL (75-99)
[2017-03-16] MEDS: oxyCODONE-APAP 10-325MG 1 EACH TAB PO PRN (11:49)
[2017-03-16] MEDS: MELOXICAM 7.5 MG TAB PO SCH (11:49)
[2017-03-16] MEDS: CYANOCOBALAMIN 500 MCG TAB PO SCH (11:50)
[2017-03-16] MEDS: FERROUS SULFATE 325 MG TAB PO SCH (11:51)
[2017-03-16] MEDS: LACTOBACILLUS ACIDOPH & BULGAR 1 EACH PACKET PO SCH (11:51)
[2017-03-16] MEDS ORDERED: NON-FORMULARY DRUG (Omega-3 Fatty Acids/Fish Oil [Fish Oil 1,000 Mg Softgel] 1 CAP) PO SCH (12:00)
--- NOTE | 2017-03-16 15:21 | P.CONS ---
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, patient is not a good surgical candidate, and he will receive palliative radiation therapy, very soon , patient was on [place] 10/325 as an outpatient, I will patient was admitted to [facility] through the emergency room because of severe intractable pain patient was started on MS Contin 30 mg every 12 hours, and his currently also on Neurontin 300 mg twice a day, he reported that the morphine is not helping to control his pain and he feels he is very dizzy and sleepy and tired when he takes the morphine, described that the pain is an intense aching pain localized in the scones in the top and the back of the skull with radiation towards the eyes and the mandibles occasionally feels some numbness Past Medical History Past Medical History: Cancer, Heart Failure, Diabetes Mellitus, GERD/Reflux, Hyperlipidemia, Hypertension, Liver Disease, Osteoarthritis (OA), Sleep Apnea/ CPAP/BIPAP, Thyroid Disorder Additional Past Medical History / Comment(s): HX jaundice age 11, SKIN CANCER- removal recently on head with open wound , SWELLING of ankles, hx ANEMIA, USES CANE, bradycardia, hiatal hernia, hs ulcer, mets to brain, back pain History of Any Multi-Drug Resistant Organisms: None Reported Past Surgical History: Appendectomy, Cholecystectomy, Hernia Repair, Pacemaker, Tonsillectomy Additional Past Surgical History / Comment(s): lana CATARACTS WITH LENS IMPLANT, SKIN CANCER removed from head x3 Past Anesthesia/Blood Transfusion Reactions: No Reported Reaction Type of Cardiac Device: Permanent Pacemaker Device Placement Date:: 08/2015 Past Psychological History: Anxiety, Depression Additional Psychological History / Comment(s): . Smoking Status: Former smoker Past Alcohol Use History: None Reported Additional Past Alcohol Use History / Comment(s): SMOKED FOR APPROX 19 YEARS. 1PPD. QUIT SMOKING AT AGE 34. Past Drug Use History: None Reported - Past Family History Mother Family Medical History: No Reported History, Cancer Additional Family Medical History / Comment(s): LEUKEMIA Father Additional Family Medical History / Comment(s): WOUNDED IN WW1, MULTIPLE INJURES -LIVED TILL AGE 88 Brother(s) Family Medical History: Cancer Medications and Allergies Home Medications Medication Instructions Recorded Confirmed Type Aspirin EC [Ecotrin Low Dose] 81 mg PO AC-SUPPER 10/13/14 03/15/17 History Folic Acid 1 mg PO AC-SUPPER 10/13/14 03/15/17 History Lisinopril [Zestril] 5 mg PO DAILY 10/13/14 03/15/17 History Omeprazole [PriLOSEC] 20 mg PO HS 10/13/14 03/15/17 History [place]-3 Fatty Acids/Fish Oil [Fish 1 cap PO DAILY@1200 08/24/15 03/15/17 History Oil 1,000 mg Softgel] Potassium Chloride ER [K-Dur 20] 20 meq PO HS 08/24/15 03/15/17 History metFORMIN HCL 1,000 mg PO BID@0800,1200 02/21/16 03/15/17 History Fluticasone Nasal Globe [Flonase 1 - 2 spray EA NOSTRIL BID 03/25/16 03/15/17 History Nasal Globe] Magnesium Oxide [Mag-Ox] 400 mg PO HS 03/25/16 03/15/17 History Tamsulosin [Flomax] 0.4 mg PO HS 03/25/16 03/15/17 History Gabapentin [Neurontin] 300 mg PO BID 08/11/16 03/15/17 History Insulin Glargine [Lantus] 30 unit SQ QAM 08/11/16 03/15/17 History Metoprolol Tartrate [Lopressor] 25 mg PO BID@0800,1200 08/11/16 03/15/17 History Ursodiol [Marcos] 250 mg PO HS 08/30/16 03/15/17 History Ipratropium-Albuterol Nebulize 3 ml INHALATION RT-QID #120 09/27/16 03/15/17 Rx [Duoneb 0.5 mg-3 mg/3 ml Soln] ampul.neb FLUoxetine HCL [PROzac] 10 mg PO DAILY 11/04/16 03/15/17 History Ferrous Sulfate [Iron (65 MG 325 mg PO DAILY@1200 11/04/16 03/15/17 History Elemental)] Metolazone [Zaroxolyn] 2.5 mg PO AC-BRKFST 11/04/16 03/15/17 History Insulin Aspart [NovoLOG Flexpen] See Protocol SQ AC-TID 01/04/17 03/15/17 History Lactobacillus Acidophilus 1 tab PO DAILY 01/04/17 03/15/17 History [Acidophilus] Levothyroxine Sodium [Synthroid] 100 mcg PO DAILY 01/04/17 03/15/17 History Loratadine [Claritin] 10 mg PO DAILY 01/04/17 03/15/17 History SILVER sulfADIAZINE CREAM 1 applic TOPICAL DAILY 01/04/17 03/15/17 History [Silvadene Cream] Budesonide-Formot 160-4.5 Mcg 2 puff INHALATION RT-BID 03/07/17 03/15/17 History [Symbicort 160-4.5 Mcg Inhaler] Furosemide [Lasix] 20 mg PO BID PRN 03/07/17 03/15/17 History Cyanocobalamin (Vitamin B-12) 1,000 mcg PO DAILY 03/15/17 03/15/17 History [Vitamin B-12] oxyCODONE-APAP 10-325MG [Percocet 1 tab PO Q6HR PRN 03/15/17 03/15/17 History 10-325 mg] Allergies Allergy/AdvReac Type Severity Reaction Status Date / Time Obfxkmm-Ttz-Wzq Reductase AdvReac Unknown Unknown Verified 03/15/17 07:29 Inhibitor Iodinated Contrast- Oral and AdvReac shakes Verified 03/15/17 07:29 IV Dye [Iodinated Contrast Media - IV Dye] Physical Exam Vitals: Vital Signs Temp Pulse Pulse Resp BP Pulse Ox 03/16/17 11:32 64 03/16/17 11:18 64 03/16/17 07:51 60 03/16/17 07:36 62 20 03/16/17 07:00 97.7 F 81 18 118/56 90 L 03/16/17 00:04 110/54 03/15/17 20:53 98.1 F 66 20 192/86 96 03/15/17 20:18 60 03/15/17 20:05 61 Intake and Output 03/16/17 03/16/17 03/16/17 06:59 14:59 22:59 Other: Voiding Method Toilet Urinal # Voids 1 Weight 108 kg 108 kg Patient Weight 03/17/17 06:59 Weight 108 kg Physical Examinations : 1-Constitutional : Cooperative , not in acute distress . 2-HEENT : nech ; supple , no Lymphadenopathy , no Thyromegaly , :eyes , no icterus, no photophobia . ENT : , normal oropharynx , no Thrush Multiple lesions on the top of the skull , and also on the occipitalis area, both covered with gauze 3- Respiratory : Chest clear to auscultations Bilaterally , no wheezing . 4- Cardiovascular : regular rate and rhythem , S1 , S2 , no S3 , no S4. 5- Gastrointestinal: abdomen soft no tenderness , no organomegally . 6- Genitourinary : Defferred . 7-Integumentary : No cellulitis , no ulcers , normal skin turgor , no cyanotic . 8- neurologic : Cranial nerve II to XII intact , no focal neurological deffecit 9-psychatric : alert , oriented X 3 , appropriate affect , intact judgment and insight . 10-Lymphatic : no Lymphadenopathy. 11- musculoskeltal: moter stegnth lower extremities ,thigh and legs 5/5 Right side , 5/5 Left side Results CBC & Chem 7: 03/15/17 08:54 03/15/17 08:54 Labs: Abnormal Lab Results - Last 24 Hours (Table) 03/15/17 03/15/17 03/15/17 Range/Units 08:54 15:37 20:17 POC Glucose (mg/dL) 247 H (75-99) mg/dL Hemoglobin A1c 9.6 H (4.2-6.1) % Urine Glucose (UA) 1+ H (Negative) 03/16/17 03/16/17 Range/Units 07:16 11:12 POC Glucose (mg/dL) 194 H 214 H (75-99) mg/dL Hemoglobin A1c (4.2-6.1) % Urine Glucose (UA) (Negative) Microbiology - Last 24 Hours (Table) 03/15/17 15:37 Urine Culture - Preliminary Urine,Voided Assessment and Plan Plan: Assessment and plan= 87 years old male with pain related to malignancy, patient diagnosed was, cell carcinoma and he is not a surgical candidate and he is scheduled to get radiation therapy next few days, his pain is severe and is not controlled as an outpatient therapy, he had side effects from the morphine 30 mg twice a day he feels that morphine makes him sleepy, and not controlling his pain enough, he was getting [place] 10/325 at home , and he had no benefit from it, I recommend discontinue morphine and start patient on Percocet 10/325 every 4 hours when necessary for pain continue Dilaudid 1 mg every 3 hours when necessary for pain, change Neurontin from 300 mg twice a day to 200 mg 3 times a day, also patient could benefit from Mobic 7.5 mg daily Time with Patient: Greater than 30
[2017-03-16 16:52] LABS: Glucose,Whole Blood 156 mg/dL (75-99)
[2017-03-16] MEDS: FOLIC ACID 1 MG TAB PO SCH (17:49)
[2017-03-16] MEDS: GABAPENTIN 100 MG CAP PO SCH ×2 (17:49→21:28)
[2017-03-16] MEDS: ASPIRIN 81 MG CHEW PO SCH (17:49)
[2017-03-16 21:21] LABS: Glucose,Whole Blood 143 mg/dL (75-99)
[2017-03-16] MEDS: TAMSULOSIN 0.4 MG CAP.ER.24H PO SCH (21:28)
[2017-03-16] MEDS: PANTOPRAZOLE 40 MG TABLET PO SCH (21:28)
[2017-03-16] MEDS: POTASSIUM CHLORIDE ER 20 MEQ TAB.ER PO SCH (21:28)
[2017-03-16] MEDS: MAGNESIUM OXIDE 400 MG TAB PO SCH (21:28)
[2017-03-17] MEDS: oxyCODONE-APAP 10-325MG 1 EACH TAB PO PRN ×4 (04:43→20:23)
[2017-03-17] MEDS: LEVOTHYROXINE 100 MCG TAB PO SCH (06:33)
[2017-03-17 07:20] LABS: Glucose,Whole Blood 150 mg/dL (75-99)
[2017-03-17] MEDS: IPRATROPIUM-ALBUTEROL 3 ML NEB INHALATION SCH ×4 (07:40→21:21)
[2017-03-17] MEDS: SYMBICORT 160-4.5 MCG INHALER INHALATION SCH ×2 (07:40→21:21)
[2017-03-17] MEDS: INSULIN LISPRO (humaLOG) 300 UNIT/3 ML VIAL SQ SCH ×4 (08:41→21:17)
[2017-03-17] MEDS: GABAPENTIN 100 MG CAP PO SCH ×3 (08:42→21:18)
[2017-03-17] MEDS: FLUoxetine HCL 10 MG CAP PO SCH (08:42)
[2017-03-17] MEDS: FLUTICASONE 50MCG/SPRAY NASAL 16GM EA NOSTRIL SCH ×2 (08:42→21:18)
[2017-03-17] MEDS: METOPROLOL TARTRATE 25 MG TAB PO SCH ×2 (08:42→12:31)
[2017-03-17] MEDS: MELOXICAM 7.5 MG TAB PO SCH (08:43)
[2017-03-17] MEDS: METOLAZONE 2.5 MG TAB PO SCH (08:43)
[2017-03-17] MEDS: metFORMIN 500 MG TAB PO SCH ×2 (08:43→12:31)
[2017-03-17] MEDS: ENOXAPARIN 40 MG/0.4 ML SYRINGE SQ SCH (08:43)
[2017-03-17] MEDS: LISINOPRIL 5 MG TAB PO SCH (08:44)
[2017-03-17] MEDS: LORATADINE 10 MG TAB PO SCH (08:44)
[2017-03-17] MEDS: INSULIN GLARGINE 100 UNIT/ML 10 ML VIAL SQ SCH (08:46)
[2017-03-17] MEDS: HYDROmorphone 1 MG/ML 1 ML SYRINGE IVP PRN (11:33)
[2017-03-17 11:39] LABS: Glucose,Whole Blood 170 mg/dL (75-99)
[2017-03-17] MEDS: CYANOCOBALAMIN 500 MCG TAB PO SCH (12:31)
[2017-03-17] MEDS: LACTOBACILLUS ACIDOPH & BULGAR 1 EACH PACKET PO SCH (12:31)
[2017-03-17] MEDS: FERROUS SULFATE 325 MG TAB PO SCH (12:31)
[2017-03-17 17:12] LABS: Glucose,Whole Blood 74 mg/dL (75-99)
[2017-03-17] MEDS: FOLIC ACID 1 MG TAB PO SCH (17:42)
[2017-03-17] MEDS: ASPIRIN 81 MG CHEW PO SCH (17:44)
[2017-03-17 20:39] LABS: Glucose,Whole Blood 153 mg/dL (75-99)
[2017-03-17] MEDS: POTASSIUM CHLORIDE ER 20 MEQ TAB.ER PO SCH (21:19)
[2017-03-17] MEDS: TAMSULOSIN 0.4 MG CAP.ER.24H PO SCH (21:19)
[2017-03-17] MEDS: PANTOPRAZOLE 40 MG TABLET PO SCH (21:19)
[2017-03-17] MEDS: MAGNESIUM OXIDE 400 MG TAB PO SCH (21:19)
[2017-03-18] MEDS: oxyCODONE-APAP 10-325MG 1 EACH TAB PO PRN ×4 (03:59→15:55)
[2017-03-18] MEDS: LEVOTHYROXINE 100 MCG TAB PO SCH (07:11)
[2017-03-18 07:22] LABS: Glucose,Whole Blood 115 mg/dL (75-99)
[2017-03-18] MEDS: metFORMIN 500 MG TAB PO SCH ×2 (08:23→11:14)
[2017-03-18] MEDS: ENOXAPARIN 40 MG/0.4 ML SYRINGE SQ SCH (08:24)
[2017-03-18] MEDS: METOPROLOL TARTRATE 25 MG TAB PO SCH ×2 (08:24→11:13)
[2017-03-18] MEDS: METOLAZONE 2.5 MG TAB PO SCH (08:24)
[2017-03-18] MEDS: FLUoxetine HCL 10 MG CAP PO SCH (08:25)
[2017-03-18] MEDS: GABAPENTIN 100 MG CAP PO SCH ×3 (08:25→21:18)
[2017-03-18] MEDS: INSULIN GLARGINE 100 UNIT/ML 10 ML VIAL SQ SCH (08:25)
[2017-03-18] MEDS: FLUTICASONE 50MCG/SPRAY NASAL 16GM EA NOSTRIL SCH ×2 (08:25→21:19)
[2017-03-18] MEDS: LORATADINE 10 MG TAB PO SCH (08:26)
[2017-03-18] MEDS: LISINOPRIL 5 MG TAB PO SCH (08:26)
[2017-03-18] MEDS: MELOXICAM 7.5 MG TAB PO SCH (08:28)
[2017-03-18] MEDS: INSULIN LISPRO (humaLOG) 300 UNIT/3 ML VIAL SQ SCH ×5 (08:29→21:19)
[2017-03-18] MEDS: HYDROmorphone 1 MG/ML 1 ML SYRINGE IVP PRN ×2 (08:31→11:15)
[2017-03-18] MEDS: FERROUS SULFATE 325 MG TAB PO SCH (11:13)
[2017-03-18] MEDS: CYANOCOBALAMIN 500 MCG TAB PO SCH (11:14)
[2017-03-18] MEDS: NYSTATIN 100,000UNIT/GM CREAM 30 GM TUBE TOPICAL SCH ×2 (11:15→21:25)
[2017-03-18] MEDS: LACTOBACILLUS ACIDOPH & BULGAR 1 EACH PACKET PO SCH (11:15)
[2017-03-18 12:04] LABS: Glucose,Whole Blood 236 mg/dL (75-99)
[2017-03-18] MEDS: SYMBICORT 160-4.5 MCG INHALER INHALATION SCH ×2 (12:13→20:11)
[2017-03-18] MEDS: IPRATROPIUM-ALBUTEROL 3 ML NEB INHALATION SCH ×4 (12:13→20:11)
--- NOTE | 2017-03-18 17:07 | P.PN ---
Progress Note - Text Mr. Marte has scalp pain due to invading squamous cell carcinoma. His pain has improved since he was started on Percocet every 4 hours however he states that his Percocet lasts only for 3-1/2 hours. I will switch the patient to oxycodone 15 mg every 4 hours when necessary pain and will keep him on the same dose of Neurontin. If his pain becomes better controlled with this regimen with no side effects like oversedation then we will continue with the same treatment. The IV Dilaudid has been stopped. When I saw the patient he was sitting on a bedside chair alert oriented 3 in no apparent distress.
[2017-03-18 17:33] LABS: Glucose,Whole Blood 148 mg/dL (75-99)
[2017-03-18] MEDS: FOLIC ACID 1 MG TAB PO SCH (19:32)
[2017-03-18] MEDS: ASPIRIN 81 MG CHEW PO SCH (19:32)
[2017-03-18] MEDS: ONDANSETRON 4 MG/2 ML VIAL IVP PRN (19:49)
[2017-03-18 20:39] LABS: Glucose,Whole Blood 192 mg/dL (75-99)
[2017-03-18] MEDS: POTASSIUM CHLORIDE ER 20 MEQ TAB.ER PO SCH (21:19)
[2017-03-18] MEDS: TAMSULOSIN 0.4 MG CAP.ER.24H PO SCH (21:19)
[2017-03-18] MEDS: MAGNESIUM OXIDE 400 MG TAB PO SCH (21:19)
[2017-03-18] MEDS: PANTOPRAZOLE 40 MG TABLET PO SCH (21:19)
[2017-03-19] MEDS: LEVOTHYROXINE 100 MCG TAB PO SCH (06:18)
[2017-03-19] MEDS: SYMBICORT 160-4.5 MCG INHALER INHALATION SCH ×2 (07:40→19:43)
[2017-03-19] MEDS: IPRATROPIUM-ALBUTEROL 3 ML NEB INHALATION SCH ×4 (07:40→19:43)
[2017-03-19 07:54] LABS: Glucose,Whole Blood 132 mg/dL (75-99)
[2017-03-19] MEDS: INSULIN GLARGINE 100 UNIT/ML 10 ML VIAL SQ SCH (07:57)
[2017-03-19] MEDS: HYDROmorphone 1 MG/ML 1 ML SYRINGE IVP PRN ×3 (07:57→15:01)
[2017-03-19] MEDS: INSULIN LISPRO (humaLOG) 300 UNIT/3 ML VIAL SQ SCH ×4 (07:59→21:09)
[2017-03-19] MEDS: FLUTICASONE 50MCG/SPRAY NASAL 16GM EA NOSTRIL SCH ×2 (08:07→21:09)
[2017-03-19] MEDS: ENOXAPARIN 40 MG/0.4 ML SYRINGE SQ SCH (08:07)
[2017-03-19] MEDS: LISINOPRIL 5 MG TAB PO SCH (08:08)
[2017-03-19] MEDS: GABAPENTIN 100 MG CAP PO SCH ×3 (08:08→21:10)
[2017-03-19] MEDS: FLUoxetine HCL 10 MG CAP PO SCH (08:08)
[2017-03-19] MEDS: metFORMIN 500 MG TAB PO SCH ×2 (08:08→13:29)
[2017-03-19] MEDS: LORATADINE 10 MG TAB PO SCH (08:09)
[2017-03-19] MEDS: MELOXICAM 7.5 MG TAB PO SCH (08:09)
[2017-03-19] MEDS: NYSTATIN 100,000UNIT/GM CREAM 30 GM TUBE TOPICAL SCH ×2 (08:10→21:11)
[2017-03-19] MEDS: METOPROLOL TARTRATE 12.5 MG TAB PO SCH ×2 (08:10→21:11)
--- NOTE | 2017-03-19 10:01 | HP ---
HISTORY AND PHYSICAL CHIEF COMPLAINT: An 87-year-old who comes with with severe cephalgia with drainage from his wound. 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 Pain was under better control at which time, he was admitted to the hospital. PHYSICAL EXAMINATION: Vital signs stable. Afebrile. CARDIOVASCULAR: S1, S2. LUNGS: Transmitted upper air sounds. HEMATOLOGIC: Negative Homans. PSYCH: Fair mood and affect. NEUROLOGIC: Alert and oriented x3. OPHTHALMOLOGIC: Pupils equal, round, and react to light and accommodation. ASSESSMENT: 1. 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 2. Wound to the skull. 3. Hypertension. 4. Dyslipidemia. 5. Degenerative disc disease. 6. Coronary artery disease. Please see further orders. MMODL / IJN: [id number] /
--- NOTE | 2017-03-19 10:12 | PN ---
PROGRESS NOTE SUBJECTIVE: An 87-year-old white male who was admitted with skull, skin cancer, squamous cell. He is being treated for it. He is waiting for radiation oncologist to treat him. Pain medicines are being evaluated by pain physician. He is switching to oral pain medicines. OBJECTIVE: Vital signs are stable, afebrile. Cardiovascular S1, S2. Lungs, transmitted upper airway sounds. Abdomen, negative Homans. Psych, fair mood effect. ASSESSMENT: Squamous cell carcinoma, improved. He is on Percocet every 4 hours. We switched him to oxycodone 50 mg every 4 hours and same dose of Neurontin and possibly discharge to home in the next 24 to 48 hours for possible Radiation Oncology as an outpatient. MMODL / IJN: [id number] /
[2017-03-19 11:07] LABS: Glucose,Whole Blood 278 mg/dL (75-99)
--- NOTE | 2017-03-19 13:03 | P.PN ---
Progress Note - Text Mr. Marte is doing better today. He feels that the oxycodone 15 mg IR is lasting longer than the Percocet 10 mg that he was on, however he complains that he sometimes does not get the pill on time and he wanted the nurses to even wake him up to give him the pill so he can avoid pain upon waking up. He may benefit from starting OxyContin at 20 mg every 12 hours to start with , plus OxyIR 15 mg every 6 hours when necessary pain, however since he looks comfortable to me and denies any pain at this time I will continue the same treatment with no changes. Radiation therapy should also be beneficial for his pain. If his pain does not get better with the radiation therapy then at that point we can start the slow release oxycodone plus the oxycodone IR for breakthrough pain. When I saw the patient this morning he was in a bedside chair, alert oriented 3 in no apparent distress, he was eating his lunch comfortably.
[2017-03-19] MEDS ORDERED: ALPRAZolam 0.25 MG TAB PO PRN (13:26)
[2017-03-19] MEDS: FERROUS SULFATE 325 MG TAB PO SCH (13:29)
[2017-03-19] MEDS: CYANOCOBALAMIN 500 MCG TAB PO SCH (13:29)
[2017-03-19] MEDS: LACTOBACILLUS ACIDOPH & BULGAR 1 EACH PACKET PO SCH (13:29)
--- NOTE | 2017-03-19 16:52 | PN ---
PROGRESS NOTE SUBJECTIVE: This is an 87-year-old, white male, who is admitted at this time for squamous cell carcinoma with intractable pain of the skull eroding into a scar. He is scheduled for radiation therapy in the morning and then he will be sent for discharge. He also has a history of CHF, COPD, diabetes mellitus. His home medicines have been continued. PHYSICAL EXAMINATION: Cardiovascular S1, S2. Lungs transmitted breath sounds. Hematological: Negative Homans. Psych: Fair mood and affect. ASSESSMENT: 1. Diastolic congestive heart failure. 2. Chronic obstructive pulmonary disease. 3. Insulin-dependent diabetes mellitus. 4. Hypothyroidism. 5. Hypertension. 6. Allergic rhinitis. 7. Anxiety. PLAN: Continue home medications. Continue in the next 24-48 hours with current treatments. He will be switched to Oxycodone 50 mg t.i.d. He wishes to go home. For pain he has got Oxy IR and he will be discharged home on that 3 times a day. To follow up as an outpatient. MMODL / IJN: [id number] /
[2017-03-19] MEDS: ASPIRIN 81 MG CHEW PO SCH (17:01)
[2017-03-19] MEDS: FOLIC ACID 1 MG TAB PO SCH (17:01)
[2017-03-19 17:25] LABS: Glucose,Whole Blood 191 mg/dL (75-99)
[2017-03-19 17:43] LABS: Glucose,Whole Blood 196 mg/dL (75-99)
[2017-03-19 20:21] LABS: Glucose,Whole Blood 193 mg/dL (75-99)
[2017-03-19] MEDS: MAGNESIUM OXIDE 400 MG TAB PO SCH (21:10)
[2017-03-19] MEDS: PANTOPRAZOLE 40 MG TABLET PO SCH (21:11)
[2017-03-19] MEDS: TAMSULOSIN 0.4 MG CAP.ER.24H PO SCH (21:12)
[2017-03-19] MEDS: POTASSIUM CHLORIDE ER 20 MEQ TAB.ER PO SCH (21:12)
[2017-03-20] MEDS: LEVOTHYROXINE 100 MCG TAB PO SCH (06:23)
[2017-03-20 07:12] LABS: Glucose,Whole Blood 112 mg/dL (75-99)
[2017-03-20] MEDS: oxyCODONE ER 20 MG TAB.ER.12H PO SCH ×2 (08:20→20:37)
[2017-03-20] MEDS: INSULIN LISPRO (humaLOG) 300 UNIT/3 ML VIAL SQ SCH ×4 (08:24→20:41)
[2017-03-20] MEDS: METOPROLOL TARTRATE 12.5 MG TAB PO SCH ×2 (08:25→20:37)
[2017-03-20] MEDS: NYSTATIN 100,000UNIT/GM CREAM 30 GM TUBE TOPICAL SCH ×2 (08:25→20:38)
[2017-03-20] MEDS: GABAPENTIN 100 MG CAP PO SCH ×3 (08:25→20:37)
[2017-03-20] MEDS: ENOXAPARIN 40 MG/0.4 ML SYRINGE SQ SCH (08:25)
[2017-03-20] MEDS: metFORMIN 500 MG TAB PO SCH ×2 (08:26→13:20)
[2017-03-20] MEDS: FLUTICASONE 50MCG/SPRAY NASAL 16GM EA NOSTRIL SCH ×2 (08:26→20:41)
[2017-03-20] MEDS: LISINOPRIL 5 MG TAB PO SCH (08:27)
[2017-03-20] MEDS: MELOXICAM 7.5 MG TAB PO SCH (08:27)
--- NOTE | 2017-03-20 08:44 | P.PN ---
Progress Note - Text Patient seen and examined this morning, states that pain is better controlled with his oxycodone 15 mg up to every 4 hours as needed for pain. Patient is complaining of what he calls rheumatism, specifically pain in his joints that was previously improved with his [place] in the past. Given this symptom, I recommend addition of an anti-inflammatory medication such as meloxicam or naproxen if it is okay with primary service and there is no concern for reduced kidney function of stomach problems given the patient is likely to undergo radiation therapy today. If the patient does not get pain relief from his palliative radiation therapy, we would recommend starting long-acting Oxycontin for him; this can also be done as an outpatient.
[2017-03-20] MEDS: IPRATROPIUM-ALBUTEROL 3 ML NEB INHALATION SCH ×4 (09:04→20:41)
[2017-03-20] MEDS: INSULIN GLARGINE 100 UNIT/ML 10 ML VIAL SQ SCH (09:22)
[2017-03-20] MEDS: FLUoxetine HCL 10 MG CAP PO SCH (09:22)
[2017-03-20] MEDS: LORATADINE 10 MG TAB PO SCH (09:22)
[2017-03-20 11:25] LABS: Glucose,Whole Blood 179 mg/dL (75-99)
[2017-03-20] MEDS: SYMBICORT 160-4.5 MCG INHALER INHALATION SCH ×2 (11:43→20:41)
[2017-03-20] MEDS: FERROUS SULFATE 325 MG TAB PO SCH (13:19)
[2017-03-20] MEDS: CYANOCOBALAMIN 500 MCG TAB PO SCH (13:19)
[2017-03-20] MEDS: LACTOBACILLUS ACIDOPH & BULGAR 1 EACH PACKET PO SCH (13:20)
--- NOTE | 2017-03-20 14:34 | P.PN ---
Subjective Principal diagnosis: pain control issues The patient reports he is feeling better today; he notes that they have made adjustments in his pain medication which has allowed for improvement in his scalp pain. He does report still having some breakthrough pain from his arthritis in his hands and legs. He notes that his typical pain along his scalp is above his left eye, as well as the posterior left vertex lesion. He also notes becoming irritated with the "leaking" from the posterior left head lesion. Objective - Vital Signs Vital signs: Vital Signs Temp 98.1 F 03/20/17 07:00 Pulse 72 03/20/17 11:53 Resp 12 03/20/17 07:00 BP 117/52 03/20/17 08:45 Pulse Ox 94 L 03/20/17 07:00 Intake & Output 03/19/17 03/20/17 03/20/17 18:59 06:59 18:59 Intake Total 480 740 Balance 480 740 Weight 110 kg 116 kg Intake: Oral 480 740 Other: Voiding Method Toilet Toilet Toilet Urinal # Voids 3 2 4 - Constitutional General appearance: Present: average body habitus, no acute distress - EENT Eyes: Present: PERRLA - Neck Neck: Absent: lymphadenopathy - Cardiovascular Rhythm: regular - Gastrointestinal General gastrointestinal: Absent: tenderness - Neurologic Neurologic: Present: CNII-XII intact. Absent: focal deficits - Psychiatric Psychiatric: Present: A&O x's 3, appropriate affect - Labs CBC & Chem 7: 03/15/17 08:54 03/15/17 08:54 Labs: Abnormal Lab Results - Last 24 Hours (Table) 03/19/17 03/19/17 03/19/17 Range/Units 17:08 17:38 20:18 POC Glucose (mg/dL) 191 H 196 H 193 H (75-99) mg/dL 03/20/17 03/20/17 Range/Units 07:09 11:24 POC Glucose (mg/dL) 112 H 179 H (75-99) mg/dL Assessment and Plan Plan: 1. 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 I explained to the patient, that the addition of radiotherapy would be purely palliative. I explained that this may help with his symptoms of scalp pain as well as may decrease the bleeding of the posterior left scalp lesion. The patient did express some interest in undergoing this treatment. At current, the patient's scalp pain is well-controlled by his new pain regimen. I discussed this case with the patient's daughter in law. She noted the fact that the patient currently lives in [place], and has no transportation. Furthermore, the patient's niece, who was recently living with him, is planning on moving out due to recent fights they've had. I am requesting that our nurse navigator look into possible transportation for the patient. The patient and his family will follow-up later this week in our clinic, and I have requested that he keep this appointment. The patient's [id number] does live in [place], and if she is able to help with the patient's transportation, he may be able to obtain radiotherapy there. Furthermore, when the subject of hospice care was approach with the patient, he was very reluctant. He reports having a bad experience with hospice care when his late . He felt that they withheld pain medication in her care. This is unfortunate considering the patient would be an excellent candidate for a hospice care approach. Time with Patient: Less than 30
[2017-03-20] MEDS: FOLIC ACID 1 MG TAB PO SCH (16:58)
[2017-03-20] MEDS: ASPIRIN 81 MG CHEW PO SCH (17:00)
[2017-03-20 17:36] LABS: Glucose,Whole Blood 137 mg/dL (75-99)
[2017-03-20 20:06] LABS: Glucose,Whole Blood 142 mg/dL (75-99)
[2017-03-20] MEDS: MAGNESIUM OXIDE 400 MG TAB PO SCH (20:37)
[2017-03-20] MEDS: TAMSULOSIN 0.4 MG CAP.ER.24H PO SCH (20:37)
[2017-03-20] MEDS: POTASSIUM CHLORIDE ER 20 MEQ TAB.ER PO SCH (20:37)
[2017-03-20] MEDS: PANTOPRAZOLE 40 MG TABLET PO SCH (20:37)
[2017-03-21] MEDS: LEVOTHYROXINE 100 MCG TAB PO SCH (06:23)
[2017-03-21 07:09] LABS: Glucose,Whole Blood 141 mg/dL (75-99)
[2017-03-21] MEDS: IPRATROPIUM-ALBUTEROL 3 ML NEB INHALATION SCH ×3 (07:09→15:30)
[2017-03-21] MEDS: SYMBICORT 160-4.5 MCG INHALER INHALATION SCH (07:09)
[2017-03-21] MEDS: INSULIN GLARGINE 100 UNIT/ML 10 ML VIAL SQ SCH (07:28)
[2017-03-21] MEDS: ENOXAPARIN 40 MG/0.4 ML SYRINGE SQ SCH (07:29)
[2017-03-21] MEDS: INSULIN LISPRO (humaLOG) 300 UNIT/3 ML VIAL SQ SCH ×3 (07:29→18:17)
[2017-03-21] MEDS: FLUoxetine HCL 10 MG CAP PO SCH (07:30)
[2017-03-21] MEDS: FLUTICASONE 50MCG/SPRAY NASAL 16GM EA NOSTRIL SCH (07:30)
[2017-03-21] MEDS: metFORMIN 500 MG TAB PO SCH ×2 (07:30→12:26)
[2017-03-21] MEDS: GABAPENTIN 100 MG CAP PO SCH ×2 (07:31→16:14)
[2017-03-21] MEDS: LORATADINE 10 MG TAB PO SCH (07:31)
[2017-03-21] MEDS: MELOXICAM 7.5 MG TAB PO SCH (07:31)
[2017-03-21] MEDS: NYSTATIN 100,000UNIT/GM CREAM 30 GM TUBE TOPICAL SCH (07:32)
[2017-03-21] MEDS: LISINOPRIL 5 MG TAB PO SCH (07:33)
[2017-03-21] MEDS: METOPROLOL TARTRATE 12.5 MG TAB PO SCH (07:33)
[2017-03-21] MEDS: oxyCODONE ER 20 MG TAB.ER.12H PO SCH (09:22)
[2017-03-21] MEDS: FERROUS SULFATE 325 MG TAB PO SCH (12:26)
[2017-03-21] MEDS: CYANOCOBALAMIN 500 MCG TAB PO SCH (12:26)
[2017-03-21] MEDS: LACTOBACILLUS ACIDOPH & BULGAR 1 EACH PACKET PO SCH (12:27)
[2017-03-21 14:12] VITALS: BMI 34.7
[2017-03-21 15:54] LABS: Glucose,Whole Blood 189 mg/dL (75-99)
[2017-03-21 17:07] VITALS: BP 103/55; PULSE 60; RESP 14; TEMP 97.7
[2017-03-21 17:15] LABS: Glucose,Whole Blood 160 mg/dL (75-99)
[2017-03-21] MEDS: ASPIRIN 81 MG CHEW PO SCH (18:18)
[2017-03-21] MEDS: FOLIC ACID 1 MG TAB PO SCH (18:18)
== END 2017-03-21 18:45 | disposition home or self-care (01) | DRG 607 ==
LOC: EC 04:08 → 5MS5E 08:45 → 5ONC 09:06
PROVIDERS: ADMIT Family Medicine; ATTEND Family Medicine
DX: C44.42 Squamous cell carcinoma of skin of scalp and neck (principal); I11.0 Hypertensive heart disease with heart failure; C78.00 Secondary malignant neoplasm of unspecified lung; I50.32 Chronic diastolic (congestive) heart failure; J44.9 Chronic obstructive pulmonary disease, unspecified; E11.9 Type 2 diabetes mellitus without complications; E03.9 Hypothyroidism, unspecified; E78.5 Hyperlipidemia, unspecified; F41.9 Anxiety disorder, unspecified; G47.30 Sleep apnea, unspecified; G89.29 Other chronic pain; I25.10 Atherosclerotic heart disease of native coronary artery without angina pectoris; J30.9 Allergic rhinitis, unspecified; K21.9 Gastro-esophageal reflux disease without esophagitis; M19.90 Unspecified osteoarthritis, unspecified site; M79.0 Rheumatism, unspecified; Z79.4 Long term (current) use of insulin; Z79.51 Long term (current) use of inhaled steroids; Z79.899 Other long term (current) drug therapy; Z80.6 Family history of leukemia; Z87.891 Personal history of nicotine dependence; Z95.0 Presence of cardiac pacemaker; Z79.82 Long term (current) use of aspirin; Z79.84 Long term (current) use of oral hypoglycemic drugs
CPT/HCPCS: 80053; 81003; 82550; 82553; 83036; 83735; 84100; 84484; 85025; 85610; 85730; 87086; 94640; 94760; 96372; 99284

== ENCOUNTER 2017-04-11 10:16 | Inpatient (IN) | payer MEDICARE, BC ==
[2017-04-11 16:11] VITALS: BMI 37.3
[2017-04-11] MEDS: PIPERACILLIN-TAZOBACTAM 3.375 GM in DEXTROSE/WATER 1 50ML.BAG IVPB SCH (20:37)
--- NOTE | 2017-04-11 20:48 | HP ---
HISTORY AND PHYSICAL CHIEF COMPLAINT: 87-year-old, white male with significant abscess and squamous cell carcinoma of the scalp, admitted with abscess of the skull, cellulitis the skull, on chemotherapy for 15 days per Radiation Oncology. History of diabetes mellitus, diastolic heart failure, coronary artery disease, hypertension, obesity, degenerative disc disease with radiculopathy. MEDICATIONS: See medications. PAST SURGICAL HISTORY: Surgical history see old chart. FAMILY HISTORY: See old chart. PHYSICAL EXAM: Vital signs stable. Afebrile. CARDIOVASCULAR: S1, S2. Lungs transmitted upper sounds. Hematology negative Homans. PSYCH: Fair mood and affect. NEUROLOGIC: Alert, orient x3. Ophthalmological pupils equal, round, react to light and accommodation. no suprapubic tenderness. Integument shows a 3 x 3 inch to 1/2 inch deep purulent exudate. Has raised red lesions about 0.25 to 5 cm with red thick edmondson on the entire wound edge. ASSESSMENT: Squamous cell carcinoma with abscess formation and cellulitis of the skull. Continue with broad-spectrum antibiotics. IV Zosyn and radiation oncology treatment. Continue home medications. MMODL / IJN: [id number] /
[2017-04-11] MEDS: SYMBICORT 160-4.5 MCG INHALER INHALATION SCH (21:11)
[2017-04-11] MEDS: IPRATROPIUM-ALBUTEROL 3 ML NEB INHALATION SCH (21:11)
[2017-04-11] MEDS: GABAPENTIN 300 MG CAP PO SCH (21:48)
[2017-04-11] MEDS: MAGNESIUM OXIDE 400 MG TAB PO SCH (21:48)
[2017-04-11] MEDS: MONTELUKAST 10 MG TAB PO SCH (21:48)
[2017-04-11] MEDS: POTASSIUM CHLORIDE ER 20 MEQ TAB.ER PO SCH (21:48)
[2017-04-11] MEDS: TAMSULOSIN 0.4 MG CAP.ER.24H PO SCH (21:48)
[2017-04-11] MEDS: PANTOPRAZOLE 40 MG TABLET PO SCH (21:48)
[2017-04-12] MEDS: oxyCODONE ER 20 MG TAB.ER.12H PO SCH ×3 (02:27→20:14)
[2017-04-12] MEDS: PIPERACILLIN-TAZOBACTAM 3.375 GM in DEXTROSE/WATER 1 50ML.BAG IVPB SCH ×3 (03:25→21:01)
[2017-04-12] MEDS: LEVOTHYROXINE 100 MCG TAB PO SCH (06:01)
[2017-04-12 07:55] LABS: Glucose,Whole Blood 207 mg/dL (75-99)
[2017-04-12 07:55] LABS: Glucose,Whole Blood 172 mg/dL (75-99)
[2017-04-12 07:55] LABS: Glucose,Whole Blood 358 mg/dL (75-99)
[2017-04-12 07:59] LABS: Basophils % (A) 1 %; CH 31.5; Eosinophils # (A) 0.4 k/uL (0-0.7); Eosinophils % (A) 5 %; HCT 31.3 % (39.0-53.0); HDW 2.61; HGB 10.1 gm/dL (13.0-17.5); Luc % (Auto) 1; Lymphocytes # (A) 1.8 k/uL (1.0-4.8); Lymphocytes % (A) 23 %; MCH 31.1 pg (25.0-35.0); MCHC 32.4 g/dL (31.0-37.0); MCV 96.2 fL (80.0-100.0); Mean Platelet Volume 7.3; Monocytes # (A) 0.7 k/uL (0-1.0); Monocytes % (A) 9 %; Neutrophils % (A) 62 %; RBC 3.25 m/uL (4.30-5.90); RDW 13.7 % (11.5-15.5); WBC (Perox) 7.98
[2017-04-12 08:10] LABS: Calcium 9.1 mg/dL (8.4-10.2); Potassium 3.7 mmol/L (3.5-5.1); Total Bilirubin 0.5 mg/dL (0.2-1.3); Total Protein 6.2 g/dL (6.3-8.2)
[2017-04-12] MEDS: SYMBICORT 160-4.5 MCG INHALER INHALATION SCH ×2 (08:22→20:09)
[2017-04-12] MEDS: IPRATROPIUM-ALBUTEROL 3 ML NEB INHALATION SCH ×4 (08:22→20:09)
[2017-04-12] MEDS: METOLAZONE 2.5 MG TAB PO SCH (08:46)
[2017-04-12] MEDS: METOPROLOL TARTRATE 25 MG TAB PO SCH ×3 (08:46→12:17)
[2017-04-12] MEDS: GABAPENTIN 300 MG CAP PO SCH ×2 (08:46→21:01)
[2017-04-12] MEDS: metFORMIN 500 MG TAB PO SCH ×2 (08:46→12:18)
[2017-04-12] MEDS: FLUTICASONE 50MCG/SPRAY NASAL 16GM EA NOSTRIL SCH (08:46)
[2017-04-12] MEDS: LORATADINE 10 MG TAB PO SCH (08:47)
[2017-04-12] MEDS: LISINOPRIL 5 MG TAB PO SCH ×2 (08:47→08:55)
[2017-04-12] MEDS: INSULIN GLARGINE 100 UNIT/ML 10 ML VIAL SQ SCH (08:58)
[2017-04-12] MEDS: FUROSEMIDE 20 MG TAB PO PRN (10:53)
[2017-04-12] MEDS ORDERED: NON-FORMULARY DRUG (Omega-3 Fatty Acids/Fish Oil [Fish Oil 1,000 Mg Softgel] 1 CAP) PO SCH (12:00)
[2017-04-12] MEDS: FERROUS SULFATE 325 MG TAB PO SCH (12:17)
[2017-04-12] MEDS: CYANOCOBALAMIN 500 MCG TAB PO SCH (12:18)
[2017-04-12] MEDS: FOLIC ACID 1 MG TAB PO SCH (12:18)
[2017-04-12 14:10] LABS: Glucose,Whole Blood 234 mg/dL (75-99)
[2017-04-12] MEDS: ASPIRIN 81 MG PO SCH (16:21)
[2017-04-12] MEDS: MONTELUKAST 10 MG TAB PO SCH (21:01)
[2017-04-12] MEDS: MAGNESIUM OXIDE 400 MG TAB PO SCH (21:01)
[2017-04-12] MEDS: TAMSULOSIN 0.4 MG CAP.ER.24H PO SCH (21:01)
[2017-04-12] MEDS: PANTOPRAZOLE 40 MG TABLET PO SCH (21:01)
[2017-04-12] MEDS: POTASSIUM CHLORIDE ER 20 MEQ TAB.ER PO SCH (21:01)
--- NOTE | 2017-04-12 21:58 | CONS ---
CONSULTATION DATE OF SERVICE: 04/12/2017 REASON FOR CONSULTATION: Locally advanced squamous cell carcinoma involving the scalp. HISTORY OF PRESENT ILLNESS: Ryne Marte is an 87-year-old gentleman with known squamous cell carcinoma involving the scalp, locally advanced. He was seen as an inpatient consultation in late February 2017 regarding palliative radiation therapy to the advanced scalp lesions. The patient has difficulty with transportation as well as difficulty with managing the advanced scalp lesions. The lesions were causing cellulitis and associated pain , with subsequent inpatient admission and supportive care which took place in the first and second weeks of March 2017. After further discussion, the patient was agreeable to palliative radiation therapy to the scalp lesions rather than entering hospice care. Unfortunately the patient has difficulty with transportation and was unable to execute his daily radiation therapy visits. Currently he was admitted for persistent cellulitis and ongoing diagnosis of squamous cell carcinoma involving the scalp. During this admission he is receiving best supportive care, including antibiotic therapy and pain management, with improvement of his current status. MEDICATIONS: 1. Albuterol/ipratropium. 2. Aspirin. 3. Budesonide. 4. Vitamin B12. 5. Ferrous sulfate. 6. Fluticasone spray. 7. Folic acid. 8. Lasix. 9. Neurontin. 10.Lantus. 11.Synthroid. 12.Zestril. 13.Claritin. 14.Glucophage. 15.Zaroxolyn. 16.Lopressor. 17.Singulair. 18.Ursodiol. 19.Oxyir. 20.Short-acting oxycodone extended release. 21.Protonix. 22.Piperacillin. 23.Potassium chloride. 24.Sulfa Silvadene. 25.Tamsulosin. PAST MEDICAL HISTORY: As per HPI. This with. Other past medical history is: 1. Heart failure. 2. Diabetes. 3. Reflux esophagitis. 4. Hyperlipidemia. 5. Hypertension. 6. Liver disease. 7. Osteoarthritis. 8. Sleep apnea. 9. Thyroid disorder. PAST SURGICAL HISTORY: 1. Scalp biopsy. 2. Appendectomy. 3. Cholecystectomy. 4. Hernia repair. 5. Pacemaker placed. 6. Tonsillectomy. PHYSICAL EXAMINATION: Well-developed, well-nourished elderly gentleman lying comfortably in bed. No acute distress. Performance status is good to fair. VITAL SIGNS: Pulse 72, respiration 16, blood pressure 97/58, oxygen saturation 97% on room air. HEENT examination shows known visible scalp lesions in the posterior and anterior part of the scalp. There is associated cellulitis. There is no evidence of active bleeding. Neck is without palpable lymphadenopathy. CHEST: Clear to auscultation. No audible wheezes. Heart is regular in rate. Abdomen is round, soft, nontender. Extremities showed no edema or tenderness. ASSESSMENT AND RECOMMENDATION: This is an 87-year-old gentleman with locally advanced squamous cell carcinoma originating from the scalp involving posterior and anterior scalp areas. The patient also has history of pulmonary nodules which are consistent with metastasis. He has multiple comorbidities and is a poor surgical candidate. Due to locally advanced lesions, patient has required best supportive care, including antibiotic therapy. He has difficulty with transportation and was unable to pursue planned daily radiation treatments. At the present time, patient is receiving best supportive care with the plan of action to be discharged to [facility] inpatient rehab. At that time arrangements will be made for the patient to have daily radiation therapy as an inpatient at the nearby rehabilitation center. I will discuss this case with the housing case manager and criminal justice social worker to assist in the process. The patient also will follow up with Dr. Schultz as well, Radiation Oncology, here in [place]. MMODL / IJN: [id number] / [email or web address]
[2017-04-13] MEDS: PIPERACILLIN-TAZOBACTAM 3.375 GM in DEXTROSE/WATER 1 50ML.BAG IVPB SCH ×3 (03:37→21:05)
--- NOTE | 2017-04-13 06:26 | CONS ---
CONSULTATION DATE OF SERVICE: 04/12/2017 REASON FOR CONSULTATION: Scalp wound and cellulitis. 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 The patient has been admitted hospital directly by Dr. Bailey, his PCP, with concern for an underlying cellulitis of the area as the patient has been complaining of pain in his scalp wound. The patient described pain dull aching 3 to 4 out of 10, and no radiation. There is some blood-stained drainage from it. The patient denies any high-grade fever or chills. Denies any chest pain, shortness of breath, cough, and abdominal pain. The patient was started on antibiotics in the form of Zosyn. I was asked to see the patient for further recommendation regarding antibiotic therapy. REVIEW OF SYSTEMS: CONSTITUTIONAL: Positive for weakness and no chills. EYES: No complaint. ENT: As per HPI. RESPIRATORY: No complaint. CARDIOVASCULAR: No complaint. GENITOURINARY: No complaint. GASTROINTESTINAL: No complaint. MUSCULOSKELETAL: No complaint. INTEGUMENTARY: As per HPI. PSYCHOLOGICAL: No complaint. ENDOCRINE: No complaint. NEUROLOGICAL: No complaint. PAST MEDICAL HISTORY: Significant for a type 2 diabetes mellitus, hypertension, hyperlipidemia, osteoarthritis, sleep apnea, hypothyroidism, heart failure, previous history of bacteremia . PAST SURGICAL HISTORY: Scalp biopsy, appendectomy, cholecystectomy, ERCP, hernia repair, pacemaker placement and tonsillectomy. SOCIAL HISTORY: Remote history of smoking. No drinking or drug use. FAMILY HISTORY: No pertinent findings noticed. ALLERGIES: Allergies to STATINS, CONTRAST IV and ORAL. MEDICATIONS: Medications include the patient is currently on DuoNeb, aspirin, Symbicort, iron sulfate, Flonase, folic acid, Lasix, Neurontin, Lantus, Synthroid, Zestril, Claritin, Mag oxide, Glucophage, Zaroxolyn, Lopressor, Singulair, oxycodone, Protonix, piperacillin tazobactam, K-Dur, Silvadene cream and Flomax. PHYSICAL EXAMINATION: On examination, blood pressure is 97/58 with a pulse of 70, temperature 96.6. He is 97% on room air. General description is an elderly male up in the chair in no distress. No tachypnea or accessory muscle for respiration use. HEENT examination shows slight pallor. No scleral icterus. The patient did have a lesion on the posterior scalp with no slough tissue at the base, no significant surrounding erythema or any foul-smelling drainage. NECK: Trachea central. No thyromegaly. LUNGS: Unlabored breathing, clear to auscultation anteriorly. HEART: S1, S2. Regular rate and rhythm. ABDOMEN: Soft, no tenderness. EXTREMITIES: No edema of the feet. SKIN EXAMINATION: No rash or mass palpable. NEUROLOGICAL: The patient is awake, alert, oriented x3. Mood and affect normal. LABS: Hemoglobin is 10.1 with white count 8.0 with a BUN of 33, creatinine 1.78. He did have some cultures obtained currently pending. DIAGNOSTIC IMPRESSION AND PLAN: Patient with wound on the scalp area with locally advanced squamous cell carcinoma with no significant surrounding swelling and redness. Clinically, the patient remains to be low for underlying cellulitis. Features of the pain is more likely from underlying advanced squamous cell carcinoma in a patient who does not have any fever or elevated white count. PLAN: 1. We will recommend local wound care with Aquacel Silver rather than Silvadene and keep the area dry. 2. May consider short course of antibiotics; however, the patient may benefit from radiation therapy for the underlying malignancy. Thank you for this consultation. I will follow this patient along with you. MMODL / IJN: [id number] / MTDD
[2017-04-13] MEDS: LEVOTHYROXINE 100 MCG TAB PO SCH (06:48)
[2017-04-13 07:13] LABS: Glucose,Whole Blood 240 mg/dL (75-99)
[2017-04-13 07:13] LABS: Glucose,Whole Blood 251 mg/dL (75-99)
[2017-04-13] MEDS: IPRATROPIUM-ALBUTEROL 3 ML NEB INHALATION SCH ×4 (07:20→19:52)
[2017-04-13] MEDS: SYMBICORT 160-4.5 MCG INHALER INHALATION SCH ×2 (07:20→19:52)
[2017-04-13] MEDS: oxyCODONE ER 20 MG TAB.ER.12H PO SCH ×2 (08:06→21:11)
[2017-04-13] MEDS: FLUTICASONE 50MCG/SPRAY NASAL 16GM EA NOSTRIL SCH (08:06)
[2017-04-13] MEDS: GABAPENTIN 300 MG CAP PO SCH ×2 (08:06→21:05)
[2017-04-13] MEDS: metFORMIN 500 MG TAB PO SCH ×2 (08:07→12:41)
[2017-04-13] MEDS: INSULIN GLARGINE 100 UNIT/ML 10 ML VIAL SQ SCH (08:07)
[2017-04-13] MEDS: METOPROLOL TARTRATE 25 MG TAB PO SCH ×2 (08:07→12:41)
[2017-04-13] MEDS: METOLAZONE 2.5 MG TAB PO SCH (08:08)
[2017-04-13] MEDS: LISINOPRIL 5 MG TAB PO SCH (08:08)
[2017-04-13] MEDS: LORATADINE 10 MG TAB PO SCH (08:08)
[2017-04-13 08:43] LABS: Glucose,Whole Blood 175 mg/dL (75-99)
[2017-04-13] MEDS: FUROSEMIDE 20 MG TAB PO PRN (10:04)
[2017-04-13 11:55] LABS: Glucose,Whole Blood 304 mg/dL (75-99)
[2017-04-13] MEDS: FOLIC ACID 1 MG TAB PO SCH (12:42)
[2017-04-13] MEDS: FERROUS SULFATE 325 MG TAB PO SCH (12:42)
[2017-04-13] MEDS: CYANOCOBALAMIN 500 MCG TAB PO SCH (12:42)
[2017-04-13] MEDS: ASPIRIN 81 MG PO SCH (17:31)
[2017-04-13] MEDS ORDERED: PSYLLIUM HUSK 100% 6 GM PACKET PO SCH (21:00)
[2017-04-13] MEDS: TAMSULOSIN 0.4 MG CAP.ER.24H PO SCH (21:05)
[2017-04-13] MEDS: POTASSIUM CHLORIDE ER 20 MEQ TAB.ER PO SCH (21:05)
[2017-04-13] MEDS: MONTELUKAST 10 MG TAB PO SCH (21:05)
[2017-04-13] MEDS: PANTOPRAZOLE 40 MG TABLET PO SCH (21:05)
[2017-04-13] MEDS: MAGNESIUM OXIDE 400 MG TAB PO SCH (21:05)
--- NOTE | 2017-04-13 22:50 | PN ---
PROGRESS NOTE DATE OF SERVICE: 04/13/2017 REASON FOR FOLLOWUP: Scalp wound with a question of secondary cellulitis. INTERVAL HISTORY: The patient is afebrile. The patient denies any worsening pain to the scalp wound area. Very minimal drainage. Denies any chest pain, shortness of breath or cough. No abdominal pain or any diarrhea. PHYSICAL EXAMINATION: His blood pressure is 124/70 with a pulse of 70, temperature of 98. General description is an elderly male up in the chair in no distress. HEENT: Scalp examination did have ulcerated wound to the posterior scalp area. There is significant surrounding swelling or redness. LUNGS: Unlabored breathing. Clear to auscultation anteriorly. HEART: S1, S2. Regular rate and rhythm. ABDOMEN: Soft. No tenderness. LABS: No new labs have been obtained today. Culture so far negative. DIAGNOSTIC IMPRESSION AND PLAN: Patient with a large ulcerative posterior scalp lesion, likely from squamous cell carcinoma. Clinical suspicion is low for underlying secondary bacterial infection. He is currently on Zosyn. That will continue while waiting for the culture to finalize. Local wound care with Aquacel Silver. Continue supportive care. MMODL / IJN: [id number] /
[2017-04-14] MEDS: PIPERACILLIN-TAZOBACTAM 3.375 GM in DEXTROSE/WATER 1 50ML.BAG IVPB SCH (03:34)
[2017-04-14] MEDS: LEVOTHYROXINE 100 MCG TAB PO SCH (06:43)
[2017-04-14 07:31] VITALS: BP 108/56; RESP 20; TEMP 97.3
[2017-04-14] MEDS: oxyCODONE ER 20 MG TAB.ER.12H PO SCH (07:32)
[2017-04-14] MEDS: METOLAZONE 2.5 MG TAB PO SCH (07:33)
[2017-04-14] MEDS: GABAPENTIN 300 MG CAP PO SCH (07:34)
[2017-04-14] MEDS: metFORMIN 500 MG TAB PO SCH ×2 (07:34→12:30)
[2017-04-14] MEDS: FLUTICASONE 50MCG/SPRAY NASAL 16GM EA NOSTRIL SCH (07:34)
[2017-04-14] MEDS: METOPROLOL TARTRATE 25 MG TAB PO SCH ×2 (07:34→12:30)
[2017-04-14] MEDS: LISINOPRIL 5 MG TAB PO SCH (07:34)
[2017-04-14] MEDS: LORATADINE 10 MG TAB PO SCH (07:35)
[2017-04-14] MEDS: INSULIN GLARGINE 100 UNIT/ML 10 ML VIAL SQ SCH (07:47)
[2017-04-14] MEDS: SYMBICORT 160-4.5 MCG INHALER INHALATION SCH (08:15)
[2017-04-14] MEDS: IPRATROPIUM-ALBUTEROL 3 ML NEB INHALATION SCH ×2 (08:15→11:59)
[2017-04-14 08:17] VITALS: PULSE 68
--- NOTE | 2017-04-14 09:09 | PN ---
PROGRESS NOTE DATE OF SERVICE: 04/13/2017 SUBJECTIVE: This is a white male with cellulitis, abscess of the scalp with squamous cell carcinoma of the scalp. He remains on IV antibiotics. Await discharge to the rehab center tomorrow. His sugars have been under good control. His thyroid is under good control. CARDIOVASCULAR: S1, S2. LUNGS: Transmitted upper air sounds. HEMATOLOGICAL: Negative Homans. PSYCH: Fair mood and affect. ASSESSMENT: 1. Squamous cell carcinoma of the scalp. 2. Diabetes mellitus. 3. Hypothyroidism. 4. Chronic obstructive pulmonary disease. 5. Congestive heart failure, diastolic. Continue current treatment. Follow up next 24 to 48 hours for discharge. MMODL / IJN: [id number] /
--- NOTE | 2017-04-14 09:12 | DS ---
DISCHARGE SUMMARY DISCHARGE MEDICATIONS: 1. DuoNeb q.i.d. 2. Aspirin 81 mg daily. 3. Symbicort 160/4.5 two puffs b.i.d. 4. Vitamin B12 1000 mcg daily. 5. Iron sulfate 325 daily. 6. Flonase nasal spray, 2 sprays each nostril daily. 7. Folic acid 1 mg daily. 8. Lasix 20 mg b.i.d. 9. Neurontin 300 mg b.i.d. 10.Lantus 30 units subcutaneously q.a.m. 11.Synthroid 100 mcg daily. 12.Zestril 5 mg daily. 13.Claritin 10 mg daily. 14.Mag oxide 400 mg q.h.s. 15.Glucophage 1000 mg b.i.d. 16.Zaroxolyn 2.5 mg a.c. breakfast. 17.Lopressor 25 mg b.i.d. 18.Singulair 10 mg daily. 19.OxyContin 20 mg E.R. 20 mg p.o. q.12 hours and Oxy IR 15 mg p.o. q.12 hours for break through. Both were given twice a day on alternating hours. 20.Protonix 40 mg p.o. q.h.s. 21.K-Dur 20 mEq daily. 22.Metamucil 6 grams p.o. q.h.s. p.r.n. 23.Flomax 0.4 mg p.r.n. ASSESSMENT: 1. Squamous cell carcinoma of the scalp. 2. Abscess with cellulitis of the scalp. 3. Hypothyroidism. 4. Diabetes mellitus. 5. Diastolic congestive heart failure. 6. Chronic obstructive pulmonary disease. 7. Obesity. 8. Degenerative disc disease. 9. Radiculopathy. 10.Neuropathy. 11.Lumbar neuritis. CONDITION: Stable. PROGNOSIS: Guarded. HOSPITAL COURSE OF EVENTS: This patient was admitted with cellulitis and sepsis of the scope over squamous cell carcinoma of the scalp. He is going to need treatment for 15 days straight. He will need transportation to [facility] for radiation treatments for 15 days straight per radiation oncologist in the next 15 days. Continue with wound care on his scalp. Monitor hemoglobins for signs of any blood loss. Garry Vu will be the radiation oncologist at [facility] doing radiation oncology. Local wound care will be done. Palliative pain control with radiation oncology is the main treatment here. To continue with Aquacel Silver dressings on the wound while he is getting squamous cell carcinoma treatments. I will follow up with him in the rehab center. LIZZY / DELISAN: [id number] /
[2017-04-14] MEDS: URSODIOL 250 MG PO SCH (10:26)
[2017-04-14] MEDS: CYANOCOBALAMIN 500 MCG TAB PO SCH (12:30)
[2017-04-14] MEDS: FERROUS SULFATE 325 MG TAB PO SCH (12:30)
[2017-04-14] MEDS: FOLIC ACID 1 MG TAB PO SCH (12:30)
--- NOTE | 2017-04-14 14:36 | PN ---
PROGRESS NOTE DATE OF SERVICE: 04/14/2017 REASON FOR FOLLOWUP: Scalp wound and a question of cellulitis. INTERVAL HISTORY: The patient is afebrile. He is breathing comfortably without pain currently controlled. Patient denies any chest pain, shortness of breath or cough. No abdominal pain or diarrhea. PHYSICAL EXAMINATION: On examination, blood pressure 108/56 with pulse of 64, temperature 97.3. He is 96% on room air. General description is an elderly male up in the chair in no distress. Scalp wound is currently covered with no drainage. LUNGS: Unlabored breathing, clear to auscultation. HEART: S1, S2. Regular rate and rhythm. ABDOMEN: Soft, no tenderness. LABS: No new labs have been obtained today. His wound culture so far negative. DIAGNOSTIC IMPRESSION AND PLAN: Patient with a fungating ulcerated area to the scalp area from underlying squamous cell carcinoma with no evidence of any cellulitis. Culture negative. No need for any systemic antibiotic at the time of discharge: Continue local wound care with Aquacel Silver and continue with the radiation therapy. MMODL / IJN: [id number] / MTDD
[2017-04-14] MEDS ORDERED: PIPERACILLIN-TAZOBACTAM 3.375 GM in DEXTROSE/WATER 1 50ML.BAG IVPB SCH (21:00)
[2017-04-15 15:05] LABS: Glucose,Whole Blood 208 mg/dL (75-99)
[2017-04-15 15:05] LABS: Glucose,Whole Blood 258 mg/dL (75-99)
[2017-04-15 15:05] LABS: Glucose,Whole Blood 232 mg/dL (75-99)
== END 2017-04-14 13:30 | DRG 603 ==
LOC: UNDOADMIN 15:26 → 4MS4W 15:26
PROVIDERS: ADMIT Family Medicine; ATTEND Family Medicine
DX: L03.811 Cellulitis of head [any part, except face] (principal); C78.00 Secondary malignant neoplasm of unspecified lung; I50.32 Chronic diastolic (congestive) heart failure; I11.0 Hypertensive heart disease with heart failure; E11.40 Type 2 diabetes mellitus with diabetic neuropathy, unspecified; J44.9 Chronic obstructive pulmonary disease, unspecified; L02.811 Cutaneous abscess of head [any part, except face]; C44.42 Squamous cell carcinoma of skin of scalp and neck; E03.9 Hypothyroidism, unspecified; E66.9 Obesity, unspecified; E78.5 Hyperlipidemia, unspecified; G47.30 Sleep apnea, unspecified; I25.10 Atherosclerotic heart disease of native coronary artery without angina pectoris; K21.0 Gastro-esophageal reflux disease with esophagitis; M19.90 Unspecified osteoarthritis, unspecified site; M51.16 Intervertebral disc disorders with radiculopathy, lumbar region; Z79.82 Long term (current) use of aspirin; Z79.4 Long term (current) use of insulin; Z79.899 Other long term (current) drug therapy; Z88.8 Allergy status to other drugs, medicaments and biological substances; Z91.041 Radiographic dye allergy status; Z87.891 Personal history of nicotine dependence; Z95.0 Presence of cardiac pacemaker; Z68.34 Body mass index [BMI] 34.0-34.9, adult
CPT/HCPCS: 80053; 83605; 85025; 85652; 87070; 87075; 87205; 94640

== ENCOUNTER 2017-07-11 14:37 | Inpatient (IN) | payer MEDICARE, BC ==
--- NOTE | 2017-07-11 15:41 | ED ---
General Adult HPI - General Chief complaint: Abdominal Pain Stated complaint: Constipation Time Seen by Provider: 07/11/17 15:17 Source: patient, EMS Mode of arrival: EMS Limitations: no limitations - History of Present Illness Initial comments: Ryne is an 87-year-old male with a past medical history of brain cancer status post radiation therapy who presents to the emergency department via EMS for evaluation of abdominal pain. Ryne reports that he has not had a bowel movement in 5 days, he reports that due to this he's experiencing abdominal cramping and nausea. He states that for the past 2-3 days he has not been eating or drinking well. He denies any fevers, chills, vomiting or change in bladder habits. Patient states that he just feels fatigued and doesn't feel safe living a home anymore. He states that he would like to live in a care home at this point. electric refrigerator servicer expressed concern to triage that Ryne is not safe to live alone. However no one was at bedside at his initial evaluation. - Related Data Home Medications Medication Instructions Recorded Confirmed Aspirin EC [Ecotrin Low Dose] 81 mg PO QA 10/13/14 07/11/17 Folic Acid 1 mg PO DAILY@1300 10/13/14 07/11/17 Lisinopril [Zestril] 5 mg PO DAILY 10/13/14 07/11/17 Omeprazole [PriLOSEC] 20 mg PO HS 10/13/14 07/11/17 [place]-3 Fatty Acids/Fish Oil [Fish 1 cap PO DAILY@1300 08/24/15 07/11/17 Oil 1,000 mg Softgel] Potassium Chloride ER [K-Dur 20] 20 meq PO QA 08/24/15 07/11/17 metFORMIN HCL 1,000 mg PO QA 02/21/16 07/11/17 Fluticasone Nasal [place] [Flonase 2 spray EA NOSTRIL DAILY 03/25/16 07/11/17 Nasal [place]] Magnesium Oxide [Mag-Ox] 400 mg PO HS 03/25/16 07/11/17 Tamsulosin [Flomax] 0.4 mg PO HS 03/25/16 07/11/17 Gabapentin [Neurontin] 300 mg PO BID 08/11/16 07/11/17 Insulin Glargine [Lantus] 30 unit SQ QA 08/11/16 07/11/17 Metoprolol Tartrate [Lopressor] 25 mg PO HS 08/11/16 07/11/17 Ferrous Sulfate [Iron (65 MG 325 mg PO HS 11/04/16 07/11/17 Elemental)] Levothyroxine Sodium [Synthroid] 100 mcg PO DAILY 01/04/17 07/11/17 Loratadine [Claritin] 10 mg PO DAILY@1300 01/04/17 07/11/17 Furosemide [Lasix] 20 mg PO BID@0800,1400 03/07/17 07/11/17 Montelukast Sodium [Singulair] 10 mg PO DAILY 04/11/17 07/11/17 Cyanocobalamin [Vitamin B-12] 500 mcg PO DAILY@1300 05/08/17 07/11/17 Insulin Aspart [NovoLOG Flexpen] See Protocol SQ AC-TID 05/08/17 07/11/17 Ubidecarenone [Co Q-10] 200 mg PO DAILY@1300 05/08/17 07/11/17 Artificial Tears-Hypromellose 1 drops BOTH EYES TID PRN 05/09/17 07/11/17 [Artificial Tear Drops] HYDROcodone/APAP 10-325MG [[place] 1 tab PO Q4HR PRN 07/11/17 07/11/17 10-325] Allergies Allergy/AdvReac Type Severity Reaction Status Date / Time Scxeykr-Mtd-Hmo Reductase Allergy Unknown Unknown Verified 07/11/17 15:56 Inhibitor Iodinated Contrast- Oral and AdvReac shakes Verified 07/11/17 15:56 IV Dye [Iodinated Contrast Media - IV Dye] Review of Systems ROS Statement: Those systems with pertinent positive or pertinent negative responses have been documented in the HPI. ROS Other: All systems not noted in ROS Statement are negative. Constitutional: Denies: fever, chills Eyes: Denies: vision change ENT: Denies: throat pain Respiratory: Reports: dyspnea (chronic, previously used CPAP but it broke). Denies: cough Cardiovascular: Denies: chest pain, palpitations Endocrine: Reports: fatigue Gastrointestinal: Reports: abdominal pain, nausea, constipation. Denies: vomiting, diarrhea, hematemesis, melena, hematochezia Genitourinary: Denies: urgency, dysuria Musculoskeletal: Denies: back pain Skin: Reports: lesions (non-healing wound on left posterior scalp from previous radiation ) Neurological: Denies: headache, weakness, numbness, paresthesias Psychiatric: Denies: anxiety Hematological/Lymphatic: Denies: easy bleeding, easy bruising Past Medical History Past Medical History: Cancer, Heart Failure, Diabetes Mellitus, GERD/Reflux, Hyperlipidemia, Hypertension, Liver Disease, Osteoarthritis (OA), Sleep Apnea/ CPAP/BIPAP, Thyroid Disorder Additional Past Medical History / Comment(s): HX jaundice age 11, SKIN CANCER- removal recently on head with open wound , SWELLING of ankles, hx ANEMIA, USES CANE, bradycardia, hiatal hernia, hs ulcer, mets to brain, back pain History of Any Multi-Drug Resistant Organisms: None Reported Past Surgical History: Appendectomy, Cholecystectomy, Hernia Repair, Pacemaker, Tonsillectomy Additional Past Surgical History / Comment(s): lana CATARACTS WITH LENS IMPLANT, SKIN CANCER removed from head x3 Past Anesthesia/Blood Transfusion Reactions: No Reported Reaction Type of Cardiac Device: Permanent Pacemaker Device Placement Date:: 08/2015 Past Psychological History: Anxiety, Depression Smoking Status: Former smoker Past Alcohol Use History: None Reported Past Drug Use History: None Reported - Past Family History Mother Family Medical History: No Reported History, Cancer Additional Family Medical History / Comment(s): LEUKEMIA Father Additional Family Medical History / Comment(s): WOUNDED IN WW1, MULTIPLE INJURES -LIVED TILL AGE 89 Brother(s) Family Medical History: Cancer General Exam Limitations: no limitations General appearance: alert, in no apparent distress Head exam: Present: other (post surgical changes to skull, non-healing wound to left posterior scalp secondary to radiation) Eye exam: Present: PERRL, EOMI ENT exam: Present: other (poor dentition ) Neck exam: Present: normal inspection. Absent: lymphadenopathy Respiratory exam: Absent: respiratory distress Cardiovascular Exam: Present: regular rate, normal rhythm GI/Abdominal exam: Present: soft, normal bowel sounds. Absent: distended, tenderness, guarding, rebound, rigid, organomegaly Extremities exam: Present: pedal edema Back exam: Present: normal inspection Neurological exam: Present: alert Psychiatric exam: Present: normal affect, normal mood Skin exam: Present: warm, dry Course Vital Signs 07/11/17 07/11/17 14:39 16:01 Temperature 97.5 F L Pulse Rate 61 60 Respiratory 16 20 Rate Blood Pressure 138/65 143/64 O2 Sat by Pulse 98 94 L Oximetry Medical Decision Making - Medical Decision Making Patient was seen and evaluated, history was obtained from the patient and review of medical record Labs and imaging were ordered X-ray reveals pulmonary nodule in the right lung Acute abdominal series with no acute findings Labs are significant for an acute anemia with a hemoglobin of 6.3, patient does not appear to be pancytopenic. Rectal exam reveals no stool in the rectal vault, stool guaiac was negative Transfusion was ordered, patient consented Labs also reveal elevated creatinine, elevated blood glucose, low albumin At this point I will plan to admit the patient for acute anemia of unknown cause as well as failure to thrive in an adult cancer patient with a low albumin Patient care was discussed with the patient's primary care provider Dr. Charlton who is very familiar with the patient, he accepts the admission with a consult to gastroenterology for possible GI bleeding Admission orders placed Patient's home medications ordered - Lab Data Result diagrams: 07/11/17 15:08 07/11/17 15:08 Lab Results 07/11/17 07/11/17 07/11/17 Range/Units 15:08 15:08 15:08 WBC 8.1 (3.8-10.6) k/uL RBC 2.12 L (4.30-5.90) m/uL Hgb 6.3 L* D (13.0-17.5) gm/dL Hct 19.5 L* (39.0-53.0) % MCV 92.3 D (80.0-100.0) fL MCH 29.9 (25.0-35.0) pg MCHC 32.4 (31.0-37.0) g/dL RDW 14.1 (11.5-15.5) % Plt Count 253 (150-450) k/uL Neutrophils % 70 % Lymphocytes % 21 % Monocytes % 6 % Eosinophils % 2 % Basophils % 0 % Neutrophils # 5.7 (1.3-7.7) k/uL Lymphocytes # 1.7 (1.0-4.8) k/uL Monocytes # 0.5 (0-1.0) k/uL Eosinophils # 0.2 (0-0.7) k/uL Basophils # 0.0 (0-0.2) k/uL Sodium 136 L (137-145) mmol/L Potassium 3.7 (3.5-5.1) mmol/L Chloride 100 (98-107) mmol/L Carbon Dioxide 28 (22-30) mmol/L Anion Gap 8 mmol/L BUN 33 H (9-20) mg/dL Creatinine 1.31 H (0.66-1.25) mg/dL Est GFR (MDRD) Af Amer >60 (>60 ml/min/1.73 sqM) Est GFR (MDRD) Non-Af 52 (>60 ml/min/1.73 sqM) Glucose 256 H (74-99) mg/dL Calcium 8.1 L (8.4-10.2) mg/dL Total Bilirubin 0.4 (0.2-1.3) mg/dL AST 20 (17-59) U/L ALT 28 (21-72) U/L Alkaline Phosphatase 70 (38-126) U/L Total Protein 5.8 L (6.3-8.2) g/dL Albumin 2.8 L (3.5-5.0) g/dL Urine Color Urine Appearance (Clear) Urine pH (5.0-8.0) Ur Specific Counselor (1.001-1.035) Urine Protein (Negative) Urine Glucose (UA) (Negative) Urine Ketones (Negative) Urine Blood (Negative) Urine Nitrite (Negative) Urine Bilirubin (Negative) Urine Urobilinogen (<2.0) mg/dL Ur Leukocyte Esterase (Negative) Blood Type B Positive Blood Type Recheck CABO Indicated Antibody Screen NEGATIVE Spec Expiration Date 07/14/2017230707/11/17 Range/Units 15:44 WBC (3.8-10.6) k/uL RBC (4.30-5.90) m/uL Hgb (13.0-17.5) gm/dL Hct (39.0-53.0) % MCV (80.0-100.0) fL MCH (25.0-35.0) pg MCHC (31.0-37.0) g/dL RDW (11.5-15.5) % Plt Count (150-450) k/uL Neutrophils % % Lymphocytes % % Monocytes % % Eosinophils % % Basophils % % Neutrophils # (1.3-7.7) k/uL Lymphocytes # (1.0-4.8) k/uL Monocytes # (0-1.0) k/uL Eosinophils # (0-0.7) k/uL Basophils # (0-0.2) k/uL Sodium (137-145) mmol/L Potassium (3.5-5.1) mmol/L Chloride (98-107) mmol/L Carbon Dioxide (22-30) mmol/L Anion Gap mmol/L BUN (9-20) mg/dL Creatinine (0.66-1.25) mg/dL Est GFR (MDRD) Af Amer (>60 ml/min/1.73 sqM) Est GFR (MDRD) Non-Af (>60 ml/min/1.73 sqM) Glucose (74-99) mg/dL Calcium (8.4-10.2) mg/dL Total Bilirubin (0.2-1.3) mg/dL AST (17-59) U/L ALT (21-72) U/L Alkaline Phosphatase (38-126) U/L Total Protein (6.3-8.2) g/dL Albumin (3.5-5.0) g/dL Urine Color Colorless Urine Appearance Clear (Clear) Urine pH 6.5 (5.0-8.0) Ur Specific Counselor 1.005 (1.001-1.035) Urine Protein Negative (Negative) Urine Glucose (UA) 2+ H (Negative) Urine Ketones Negative (Negative) Urine Blood Negative (Negative) Urine Nitrite Negative (Negative) Urine Bilirubin Negative (Negative) Urine Urobilinogen <2.0 (<2.0) mg/dL Ur Leukocyte Esterase Negative (Negative) Blood Type Blood Type Recheck Antibody Screen Spec Expiration Date Disposition Clinical Impression: Acute pure red cell anemia, Constipation, Failure to thrive in adult Disposition: ADMITTED IP TO THIS HOSP Condition: Poor Referrals: Lazaro Bailey MD [Primary Care Provider] - 1-2 days Time of Disposition: 16:26
[2017-07-11 15:46] LABS: Basophils % (A) 0 %; Eosinophils # (A) 0.2 k/uL (0-0.7); Eosinophils % (A) 2 %; Lymphocytes # (A) 1.7 k/uL (1.0-4.8); Lymphocytes % (A) 21 %; MCH 29.9 pg (25.0-35.0); MCHC 32.4 g/dL (31.0-37.0); Mean Platelet Volume 7.5; Monocytes # (A) 0.5 k/uL (0-1.0); Monocytes % (A) 6 %; Neutrophils # (A) 5.7 k/uL (1.3-7.7); Neutrophils % (A) 70 %; Platelet Count 253 k/uL (150-450); RBC 2.12 m/uL (4.30-5.90); RDW 14.1 % (11.5-15.5); WBC 8.1 k/uL (3.8-10.6)
[2017-07-11 15:49] LABS: MCV 92.3 fL (80.0-100.0)
[2017-07-11 15:51] LABS: HCT 19.5 % (39.0-53.0); HGB 6.3 gm/dL (13.0-17.5)
[2017-07-11 15:54] LABS: ALT 28 U/L (21-72); AST 20 U/L (17-59); Albumin 2.8 g/dL (3.5-5.0); Alkaline Phosphatase 70 U/L (38-126); Anion Gap 8 mmol/L; Blood Urea Nitrogen 33 mg/dL (9-20); Calcium 8.1 mg/dL (8.4-10.2); Carbon Dioxide 28 mmol/L (22-30); Chloride 100 mmol/L (98-107); Glucose 256 mg/dL (74-99); Potassium 3.7 mmol/L (3.5-5.1); Sodium 136 mmol/L (137-145); Total Bilirubin 0.4 mg/dL (0.2-1.3); Total Protein 5.8 g/dL (6.3-8.2)
[2017-07-11 15:59] LABS: Appearance,Urine Clear (Clear); Bilirubin,Urine Negative (Negative); Blood,Urine Negative (Negative); Color,Urine Colorless; Glucose,Urine (UA) 2+ (Negative); Ketones,Urine Negative (Negative); Leukocyte Esterase,Urine Negative (Negative); Nitrite,Urine Negative (Negative); PH, Urine 6.5 (5.0-8.0); Protein,Urine Negative (Negative); Specific Gravity,Urine 1.005 (1.001-1.035); Urobilinogen,Urine <2.0 mg/dL (<2.0)
--- NOTE | 2017-07-11 16:02 | XR ---
EXAMINATION TYPE: XR abdomen acute w cxr DATE OF EXAM: 07/11/2017 COMPARISON: Chest CT dated 12/21/2016 HISTORY: Abdominal pain with constipation. Chest pain. TECHNIQUE: Supine, upright, and left side down lateral decubitus views of the abdomen are obtained. FINDINGS: There is a cavitary lesion in the right midlung containing an air-fluid level in this patie nt with a history of multiple known pulmonary nodules. This measures approximately 3.2 x 3.3 cm and a ppears to have thick edmondson. The other known bilateral pulmonary nodules are better seen on the prior CT. Dual lead left-sided cardiac device and mild cardiomegaly are present. No focal consolidation, pl eural effusion or pneumothorax. Mild bilateral acromioclavicular arthropathy is noted. There is a rotatory S-shaped scoliotic curvature of the thoracolumbar spine. Air and stool are seen w ithin nondilated loops of large bowel. No small bowel dilatation or air-fluid levels are present. No pneumoperitoneum or abnormal calcifications in the abdomen. Multiple phleboliths are noted within the low pelvis. Atherosclerosis is seen of the common iliac arteries and their branches. Rounded density overlying the sacrum is likely within the rectum related to stool. Mild degenerative changes of the femoral acetabular joints are noted. IMPRESSION: 1. Right midlung cavitary lesion appearing thick walled is likely neoplastic in this patient with a k nown history of pulmonary nodules. Other less likely possibilities include cavitary pneumonia or sept ic embolus. 2. Nonobstructive bowel gas pattern.
[2017-07-11] MEDS ORDERED: NALOXONE 0.4 MG/ML 1 ML VIAL IV PRN (16:27)
[2017-07-11] MEDS ORDERED: ARTIFICIAL TEARS-HYPROMELLOSE DROPS 15 ML BTL BOTH EYES PRN (16:33)
[2017-07-11] MEDS: HYDROcodone/APAP 10-325MG 1 EACH TAB PO PRN ×2 (17:06→21:30)
[2017-07-11 18:10] LABS: Glucose,Whole Blood 226 mg/dL (75-99)
[2017-07-11] MEDS: INSULIN ASPART 100 UNIT/ML 1 ML 10 ML VIAL SQ SCH (18:39)
[2017-07-11 20:27] LABS: Glucose,Whole Blood 285 mg/dL (75-99)
[2017-07-11] MEDS: GABAPENTIN 300 MG CAP PO SCH (21:30)
[2017-07-11] MEDS: PANTOPRAZOLE 40 MG TABLET PO SCH (21:30)
[2017-07-11] MEDS: TAMSULOSIN 0.4 MG CAP.ER.24H PO SCH (21:30)
[2017-07-11] MEDS: METOPROLOL TARTRATE 25 MG TAB PO SCH (22:44)
[2017-07-12] MEDS: HYDROcodone/APAP 10-325MG 1 EACH TAB PO PRN ×4 (01:36→16:36)
[2017-07-12 03:25] LABS: Basophils # (A) 0.1 k/uL (0-0.2); Basophils % (A) 1 %; Eosinophils # (A) 0.3 k/uL (0-0.7); Eosinophils % (A) 3 %; HCT 32.5 % (39.0-53.0); Lymphocytes # (A) 2.1 k/uL (1.0-4.8); Lymphocytes % (A) 22 %; MCH 30.5 pg (25.0-35.0); MCHC 32.9 g/dL (31.0-37.0); MCV 92.8 fL (80.0-100.0); Mean Platelet Volume 7.1; Monocytes # (A) 0.5 k/uL (0-1.0); Monocytes % (A) 6 %; Neutrophils # (A) 6.1 k/uL (1.3-7.7); Neutrophils % (A) 67 %; Platelet Count 248 k/uL (150-450); RDW 13.9 % (11.5-15.5); WBC 9.2 k/uL (3.8-10.6)
[2017-07-12 03:43] LABS: HGB 10.7 gm/dL (13.0-17.5)
[2017-07-12 03:54] LABS: Calcium 9.3 mg/dL (8.4-10.2)
[2017-07-12 03:58] LABS: Potassium 3.8 mmol/L (3.5-5.1)
[2017-07-12] MEDS: LEVOTHYROXINE 100 MCG TAB PO SCH (05:57)
[2017-07-12 07:41] LABS: Glucose,Whole Blood 185 mg/dL (75-99)
[2017-07-12] MEDS: POTASSIUM CHLORIDE ER 20 MEQ TAB.ER PO SCH (07:49)
[2017-07-12] MEDS: INSULIN ASPART 100 UNIT/ML 1 ML 10 ML VIAL SQ SCH ×3 (07:50→18:04)
[2017-07-12] MEDS: LISINOPRIL 5 MG TAB PO SCH (07:50)
[2017-07-12] MEDS: FUROSEMIDE 20 MG TAB PO SCH ×2 (07:50→14:22)
[2017-07-12] MEDS: GABAPENTIN 300 MG CAP PO SCH ×2 (07:50→22:03)
[2017-07-12 12:12] LABS: Glucose,Whole Blood 305 mg/dL (75-99)
[2017-07-12] MEDS ORDERED: NON-FORMULARY DRUG (Ubidecarenone [Co Q-10] 200 MG) PO SCH (13:00)
[2017-07-12] MEDS: FOLIC ACID 1 MG TAB PO SCH (13:06)
[2017-07-12 17:15] LABS: Glucose,Whole Blood 247 mg/dL (75-99)
[2017-07-12] MEDS: HYDROcodone/APAP 10-325MG 1 EACH TAB PO SCH (19:59)
[2017-07-12 20:41] LABS: Glucose,Whole Blood 219 mg/dL (75-99)
[2017-07-12] MEDS: METOPROLOL TARTRATE 25 MG TAB PO SCH (22:03)
[2017-07-12] MEDS: PANTOPRAZOLE 40 MG TABLET PO SCH (22:03)
[2017-07-12] MEDS: TAMSULOSIN 0.4 MG CAP.ER.24H PO SCH (22:03)
[2017-07-12 23:25] VITALS: BMI 30.4
[2017-07-13] MEDS: HYDROcodone/APAP 10-325MG 1 EACH TAB PO SCH ×7 (00:12→20:30)
[2017-07-13] MEDS: POLYETHYLENE GLYCOL 3350 17 GM POWD.PACK PO SCH ×2 (01:28→20:29)
[2017-07-13] MEDS: LEVOTHYROXINE 100 MCG TAB PO SCH (05:26)
--- NOTE | 2017-07-13 05:47 | HP ---
HISTORY AND PHYSICAL CHIEF COMPLAINT: An elderly white male with a GI bleed with severe anemia and altered mental status and dementia, unable to take care of himself at home. He states his insulin is making him short of breath at which time he stopped all his insulin. He has uncontrolled diabetes mellitus. He has COPD and congestive heart failure, possibly noncompliance with medications. He was found to have severe anemia on admission for which blood transfusion was given. MEDICATIONS: See list. PAST SURGERIES: He has had multiple surgeries including a recent skull cancer surgery. He has had radiation to his skull recently. PHYSICAL EXAMINATION: Vital signs are reviewed. CARDIOVASCULAR: S1, S2. LUNGS: Transmitted upper airway sounds. GI: Soft. HEMATOLOGIC: Negative Homans. VASCULAR: Normal dorsalis pedis, +2 radial pulse. OPHTHALMOLOGIC: Pupils equal, round, reactive to light and accommodation. ASSESSMENT: 1. Gastrointestinal bleed. 2. Severe anemia. 3. Dementia. 4. Skin cancer, squamous cell of the skull. 5. Chronic obstructive pulmonary disease exacerbation. 6. Diastolic congestive heart failure. IV steroids, antibiotics, updraft treatments. longterm placement for long-term care. Blood transfusion. Recheck hemoglobin in the morning. MMODL / IJN: [id number] /
[2017-07-13 07:16] LABS: Glucose,Whole Blood 271 mg/dL (75-99)
[2017-07-13] MEDS: INSULIN ASPART 100 UNIT/ML 1 ML 10 ML VIAL SQ SCH ×3 (08:22→18:09)
[2017-07-13] MEDS: POTASSIUM CHLORIDE ER 20 MEQ TAB.ER PO SCH (08:24)
[2017-07-13] MEDS: GABAPENTIN 300 MG CAP PO SCH ×2 (08:24→20:29)
[2017-07-13] MEDS: FUROSEMIDE 20 MG TAB PO SCH ×2 (08:25→13:15)
[2017-07-13] MEDS: LISINOPRIL 5 MG TAB PO SCH (08:25)
[2017-07-13] MEDS ORDERED: LACTULOSE 20 GM/30 ML CUP PO SCH (09:00)
[2017-07-13] MEDS: MAG HYDROX/AL HYDROX/SIMETH 30 ML, LIDOCAINE VISCOUS 30 ML, diphenhydrAMINE ELIXIR 75 M... PO SCH ×12 (09:11→20:29)
[2017-07-13 09:15] LABS: Basophils # (A) 0.1 k/uL (0-0.2); Basophils % (A) 1 %; Eosinophils # (A) 0.3 k/uL (0-0.7); Eosinophils % (A) 3 %; HCT 36.7 % (39.0-53.0); HGB 11.5 gm/dL (13.0-17.5); Lymphocytes # (A) 1.8 k/uL (1.0-4.8); Lymphocytes % (A) 19 %; MCH 29.9 pg (25.0-35.0); MCHC 31.4 g/dL (31.0-37.0); Mean Platelet Volume 7.5; Monocytes # (A) 0.6 k/uL (0-1.0); Monocytes % (A) 6 %; Neutrophils % (A) 71 %; Platelet Count 236 k/uL (150-450); RBC 3.86 m/uL (4.30-5.90); RDW 14.9 % (11.5-15.5); WBC 9.9 k/uL (3.8-10.6)
[2017-07-13 09:41] LABS: Calcium 9.7 mg/dL (8.4-10.2)
--- NOTE | 2017-07-13 11:46 | P.CNPUL ---
History of Present Illness Consult date: 07/13/17 Requesting physician: Lazaro Bailey Reason for consult: lung mass Chief complaint: shortness of breath History of present illness: This is an 87-year-old male patient well-known to our services be seen and examined and evaluated today on rounds. The patient does have a significant past medical history for squamous cell carcinoma of the scalp and was receiving radiation treatments in the outpatient setting with Dr. Scuhltz. The patient came into the emergency room via EMS for evaluation and workup of abdominal pain the patient had not have a bowel movement in over 5 days and was experiencing abdominal cramping and nausea. The patient states he is also not eating well and has a poor appetite. The patient has been very fatigued at home and has been unable to care for himself lately his caregiver was also concerned that the patient is unsafe to live at home. Upon workup in the emergency room the patient did undergo an acute abdomen series of x-ray which did show a right midlung cavitary lesion appearing thick walled which is likely neoplastic with his history of pulmonary nodules. Other etiologies could be cavitary pneumonia or septic emboli. These findings were compared to a Chest CT on 12/21/16. Patient was also noted to have lab work that revealed acute anemia with hemoglobin of 6.3 his digital rectal exam was negative for stool in rectal vault as well as negative for stool guaiac. Patient was given 2 units of packed red blood cells. Was also noted that the patient had a albumin of 2.8. The patient was admitted for further workup, and treatment as well as with a GI consult for possible GI Bleed. Patient is scheduled for EGD and colonoscopy tomorrow. Of note the patient did have a bronchoscopy with Dr. Polk on 2016 which was negative except for Elle. Upon examination the patient is resting in bedside chair on 2 L of supplemental oxygen via nasal cannula. Continues to have shortness of breath with exertion and activity. He has had a productive cough with white sputum that has been slightly blood tinged. Patient also noted to have bloody bowel movement yesterday. Patient is afebrile no further complaints. All labs and reports have been reviewed. Review of Systems 14 point review of systems was completed and negative unless noted above in the HPI. 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,"spots on lung" back pain, constipation History of Any Multi-Drug Resistant Organisms: None Reported Past Surgical History: Appendectomy, Cholecystectomy, Hernia Repair, Pacemaker, Tonsillectomy Additional Past Surgical History / Comment(s): lana CATARACTS WITH LENS IMPLANT, SKIN CANCER removed from head x3, thoracentesis Past Anesthesia/Blood Transfusion Reactions: No Reported Reaction Type of Cardiac Device: Permanent Pacemaker Device Placement Date:: 08/2015 Smoking Status: Former smoker - Past Family History Mother Family Medical History: No Reported History, Cancer Additional Family Medical History / Comment(s): LEUKEMIA Father Additional Family Medical History / Comment(s): WOUNDED IN WW1, MULTIPLE INJURES -LIVED TILL AGE 89 Brother(s) Family Medical History: Cancer Medications and Allergies Home Medications Medication Instructions Recorded Confirmed Type Aspirin EC [Ecotrin Low Dose] 81 mg PO QAM 10/13/14 07/11/17 History Folic Acid 1 mg PO DAILY@1300 10/13/14 07/11/17 History Lisinopril [Zestril] 5 mg PO DAILY 10/13/14 07/11/17 History Omeprazole [PriLOSEC] 20 mg PO 10/13/14 07/11/17 History [place]-3 Fatty Acids/Fish Oil [Fish 1 cap PO DAILY@1300 08/24/15 07/11/17 History Oil 1,000 mg Softgel] Potassium Chloride ER [K-Dur 20] 20 meq PO QAM 08/24/15 07/11/17 History metFORMIN HCL 1,000 mg PO QAM 02/21/16 07/11/17 History Fluticasone Nasal [place] [Flonase 2 spray EA NOSTRIL DAILY 03/25/16 07/11/17 History Nasal [place]] Magnesium Oxide [Mag-Ox] 400 mg PO HS 03/25/16 07/11/17 History Tamsulosin [Flomax] 0.4 mg PO HS 03/25/16 07/11/17 History Gabapentin [Neurontin] 300 mg PO BID 08/11/16 07/11/17 History Insulin Glargine [Lantus] 30 unit SQ QAM 08/11/16 07/11/17 History Metoprolol Tartrate [Lopressor] 25 mg PO HS 08/11/16 07/11/17 History Ferrous Sulfate [Iron (65 MG 325 mg PO HS 11/04/16 07/11/17 History Elemental)] Levothyroxine Sodium [Synthroid] 100 mcg PO DAILY 01/04/17 07/11/17 History Loratadine [Claritin] 10 mg PO DAILY@1300 01/04/17 07/11/17 History Furosemide [Lasix] 20 mg PO BID@0800,1400 03/07/17 07/11/17 History Montelukast Sodium [Singulair] 10 mg PO DAILY 04/11/17 07/11/17 History Cyanocobalamin [Vitamin B-12] 500 mcg PO DAILY@1300 05/08/17 07/11/17 History Insulin Aspart [NovoLOG Flexpen] See Protocol SQ AC-TID 05/08/17 07/11/17 History Ubidecarenone [Co Q-10] 200 mg PO DAILY@1300 05/08/17 07/11/17 History Artificial Tears-Hypromellose 1 drops BOTH EYES TID PRN 05/09/17 07/11/17 History [Artificial Tear Drops] HYDROcodone/APAP 10-325MG [[place] 1 tab PO Q4HR PRN 07/11/17 07/11/17 History 10-325] Allergies Allergy/AdvReac Type Severity Reaction Status Date / Time Xszzitq-Mnw-Mum Reductase Allergy Unknown Unknown Verified 07/11/17 15:56 Inhibitor Iodinated Contrast- Oral and AdvReac shakes Verified 07/11/17 15:56 IV Dye [Iodinated Contrast Media - IV Dye] Physical Exam Vitals: Vital Signs Temp Pulse Resp BP BP Pulse Ox 07/13/17 08:00 18 07/12/17 23:49 18 07/12/17 22:52 98.1 F 60 18 109/64 94 L 07/12/17 16:00 60 16 07/12/17 15:00 97.7 F 60 16 108/65 96/56 95 Intake and Output 07/12/17 07/13/17 07/13/17 22:59 06:59 14:59 Intake Total 800 480 Balance 800 480 Intake: Oral 800 480 Other: Voiding Method Toilet Toilet Toilet # Voids 3 1 Weight 101.605 kg Patient Weight 07/14/17 06:59 Weight 101.605 kg GENERAL EXAM: Alert, comfortable in no apparent distress. HEAD: Slight skull formation abnormality, patient states is from cancer of the scalp. EYES: Normal reaction of pupils, equal size. NOSE: Clear with pink turbinates. THROAT: No erythema or exudates. NECK: No masses, no JVD. CHEST: No chest wall deformity. LUNGS: Lungs noted to be diminished bilaterally with some faint expiratory wheezing noted throughout. Bases diminished CVS: S1 and S2 normal with no audible mumurs, regular rhythm. ABDOMEN: No hepatosplenomegaly, normal bowel sounds, no guarding or rigidity. EXTREMITIES: +1 LLE edema noted, pedal pulses palpable. SKIN: Scalp dry with scabs. CENTRAL NERVOUS SYSTEM: No focal deficits, tone is normal in all 4 extremities. Results - Laboratory Findings CBC and BMP: 07/13/17 08:58 07/13/17 08:58 Abnormal lab findings: Abnormal Labs 07/11/17 07/11/17 07/11/17 15:08 15:08 15:08 RBC 2.12 L Hgb 6.3 L* D Hct 19.5 L* Sodium 136 L Chloride Carbon Dioxide BUN 33 H Creatinine 1.31 H Glucose 256 H POC Glucose (mg/dL) Calcium 8.1 L Total Protein 5.8 L Albumin 2.8 L Urine Glucose (UA) Crossmatch See Detail 07/11/17 07/11/17 07/11/17 15:44 18:07 20:24 RBC Hgb Hct Sodium Chloride Carbon Dioxide BUN Creatinine Glucose POC Glucose (mg/dL) 226 H 285 H Calcium Total Protein Albumin Urine Glucose (UA) 2+ H Crossmatch 07/12/17 07/12/17 07/12/17 03:14 03:14 07:21 RBC 3.50 L Hgb 10.7 L D Hct 32.5 L Sodium 135 L Chloride 94 L Carbon Dioxide 32 H BUN 35 H Creatinine 1.60 H Glucose 228 H POC Glucose (mg/dL) 185 H Calcium Total Protein Albumin Urine Glucose (UA) Crossmatch 07/12/17 07/12/17 07/12/17 12:07 17:13 20:38 RBC Hgb Hct Sodium Chloride Carbon Dioxide BUN Creatinine Glucose POC Glucose (mg/dL) 305 H 247 H 219 H Calcium Total Protein Albumin Urine Glucose (UA) Crossmatch 07/13/17 07/13/17 07/13/17 07:15 08:58 08:58 RBC 3.86 L Hgb 11.5 L Hct 36.7 L Sodium 135 L Chloride 92 L Carbon Dioxide 32 H BUN 33 H Creatinine 1.65 H Glucose 294 H POC Glucose (mg/dL) 271 H Calcium Total Protein Albumin Urine Glucose (UA) Crossmatch Assessment and Plan Plan: Assessment Pulmonary cavitary lesion with history of multiple pulmonary nodules Anemia, suspect blood loss r/t GI Bleed Squamous cell skin cancer Moderate protein calorie malnutrition with poor appetite and failure to thrive History of COPD History of diastolic congestive heart failure Plan We'll obtain a CT without contrast of the chest. Medications have been reviewed and will be continued as ordered. We will add DuoNeb and budesonide via nebulizer. Continue with pulmonary hygiene, coughing and deep breathing exercises, and supportive care. Supplemental oxygen to maintain oxygen saturations of 92% or better. Continue nebulizer treatments. Patient is also being seen by GI services and will undergo an EGD and colonoscopy tomorrow. Patient could possibly undergo a bronchoscopy in the near future however we would recommend the patient undergo EGD and colonoscopy first and will plan bronchoscopy after stable. We'll also obtain a sputum culture. Initiate and encourage incentive spirometer. GI and DVT prophylaxis. We will continue to monitor labs/results and adjust treatment as necessary. Further recommendations pending. I performed an examination of the patient and discussed their management with the nurse practitioner. I have reviewed the nurse practitioner's note and agree with the documented findings and plan of care.
[2017-07-13] MEDS: IPRATROPIUM-ALBUTEROL 3 ML NEB INHALATION SCH ×2 (11:56→20:10)
--- NOTE | 2017-07-13 11:58 | CDI ---
Last Revision, June 2017 Documentation Clarification Form Date: 07/13/2017 11:41:00 AM From: Crystal Smart Admit Date: 07/11/2017 4:27:00 PM Patient Name: Ryne Marte Visit Number: [id number] ATTENTION: The Clinical Documentation Specialists (CDI) and [facility] Coding Staff appreciate your assistance in clarifying documentation. Please respond to the clarification below the line at the bottom and electronically sign. The CDI & [facility] Coding staff will review the response and follow-up if needed. Please note: Queries are made part of the Legal Health Record. If you have any questions, please contact the author of this message via ITS. Dr. Lazaro Bailey, A diagnosis of anemia lacks specificity to accurately reflect your patients severity of condition and clarification is needed. History/Risk Factors: DM, COPD, CHF, dementia, skin cancer with radiation Clinical indicators: Hemoglobin: on admission 6.3 Hematocrit: on admission 19.5 Treatment: PRBCs transfused lab monitoring Consults ordered for GI and surgery In order to capture the severity of condition, please clarify the type of anemia and etiology if known: Acute blood loss anemia Acute on chronic blood loss anemia Chronic blood loss anemia Hemolytic anemia Drug induced anemia Anemia due to malignancy Unable to determine Other, please specify Please continue to document in your progress notes and discharge summary in order to capture severity of illness and risk of mortality. Include clinical findings that support your diagnosis. MTDD
--- NOTE | 2017-07-13 12:09 | P.CONS ---
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 Patient denies overt bleeding such as hematemesis hematochezia or melena. House nausea and vomiting. Increased fatigue. Admission hemoglobin 6.3. MCV 92. Platelet 253. BUN 33. Creatinine 1.3. LFTs unremarkable. Received 2 units of blood current hemoglobin 11.5. Patient is concerned as to where the anemia came from. Last colonoscopy about 5 years ago maybe longer. No recent EGD. ERCP a year ago. Home medications include baby aspirin. No NSAIDs or other antiplatelet medications. No weight loss. Presently denies abdominal pain. Acute abdominal series right midlung cavitary lesion appeared thick wall likely neoplastic with known history of pulmonary nodules. Possible cavitary pneumonia or septic embolus. Nonobstructive bowel gas pattern. Patient states he underwent thoracentesis at [facility] a few months ago but does not know pathology report. Patient is requesting oncology and pulmonary evaluation. Review of Systems Constitutional: Denies fever, chills, sweats, weight gain, or loss. HEENT: Negative for migraines, blurred vision or loss, earaches, drainage, tinnitus, oral mucosal lesions, dysphagia, or odynophagia. Cardiac: Heart failure. Hypertension. Hyperlipidemia. Negative for chest pain , arrhythmias, or palpitation. Respiratory: Sleep apnea. Negative for shortness of breath, hemoptysis, cough, or sputum production. Gastrointestinal: See HPI for pertinent findings. Genitourinary: Negative for hematuria, urgency, frequency, polyuria, dysuria, or penile discharge. Musculoskeletal: Negative for muscle aches, swelling, arthritis, and arthralgias. Neurologic: Negative for stroke or TIA. Endocrine: Negative for thyroid problems. Skin: Squamous cell scalp carcinoma.. Psychiatric: Anxiety depression. 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,"spots on lung" back pain, constipation History of Any Multi-Drug Resistant Organisms: None Reported Past Surgical History: Appendectomy, Cholecystectomy, Hernia Repair, Pacemaker, Tonsillectomy Additional Past Surgical History / Comment(s): lana CATARACTS WITH LENS IMPLANT, SKIN CANCER removed from head x3, thoracentesis Past Anesthesia/Blood Transfusion Reactions: No Reported Reaction Type of Cardiac Device: Permanent Pacemaker Device Placement Date:: 08/2015 Smoking Status: Former smoker - Past Family History Mother Family Medical History: No Reported History, Cancer Additional Family Medical History / Comment(s): LEUKEMIA Father Additional Family Medical History / Comment(s): WOUNDED IN WW1, MULTIPLE INJURES -LIVED TILL AGE 89 Brother(s) Family Medical History: Cancer Medications and Allergies Home Medications Medication Instructions Recorded Confirmed Type Aspirin EC [Ecotrin Low Dose] 81 mg PO [facility] 10/13/14 07/11/17 History Folic Acid 1 mg PO DAILY@1300 10/13/14 07/11/17 History Lisinopril [Zestril] 5 mg PO DAILY 10/13/14 07/11/17 History Omeprazole [PriLOSEC] 20 mg PO 10/13/14 07/11/17 History [place]-3 Fatty Acids/Fish Oil [Fish 1 cap PO DAILY@1300 08/24/15 07/11/17 History Oil 1,000 mg Softgel] Potassium Chloride ER [K-Dur 20] 20 meq PO [facility] 08/24/15 07/11/17 History metFORMIN HCL 1,000 mg PO [facility] 02/21/16 07/11/17 History Fluticasone Nasal [place] [Flonase 2 spray EA NOSTRIL DAILY 03/25/16 07/11/17 History Nasal [place]] Magnesium Oxide [Mag-Ox] 400 mg PO 03/25/16 07/11/17 History Tamsulosin [Flomax] 0.4 mg PO 03/25/16 07/11/17 History Gabapentin [Neurontin] 300 mg PO BID 08/11/16 07/11/17 History Insulin Glargine [Lantus] 30 unit SQ [facility] 08/11/16 07/11/17 History Metoprolol Tartrate [Lopressor] 25 mg PO HS 08/11/16 07/11/17 History Ferrous Sulfate [Iron (65 MG 325 mg PO HS 11/04/16 07/11/17 History Elemental)] Levothyroxine Sodium [Synthroid] 100 mcg PO DAILY 01/04/17 07/11/17 History Loratadine [Claritin] 10 mg PO DAILY@1300 01/04/17 07/11/17 History Furosemide [Lasix] 20 mg PO BID@0800,1400 03/07/17 07/11/17 History Montelukast Sodium [Singulair] 10 mg PO DAILY 04/11/17 07/11/17 History Cyanocobalamin [Vitamin B-12] 500 mcg PO DAILY@1300 05/08/17 07/11/17 History Insulin Aspart [NovoLOG Flexpen] See Protocol SQ AC-TID 05/08/17 07/11/17 History Ubidecarenone [Co Q-10] 200 mg PO DAILY@1300 05/08/17 07/11/17 History Artificial Tears-Hypromellose 1 drops BOTH EYES TID PRN 05/09/17 07/11/17 History [Artificial Tear Drops] HYDROcodone/APAP 10-325MG [[place] 1 tab PO Q4HR PRN 07/11/17 07/11/17 History 10-325] Allergies Allergy/AdvReac Type Severity Reaction Status Date / Time Fcwoope-Ewa-Gjk Reductase Allergy Unknown Unknown Verified 07/11/17 15:56 Inhibitor Iodinated Contrast- Oral and AdvReac shakes Verified 07/11/17 15:56 IV Dye [Iodinated Contrast Media - IV Dye] Physical Exam Vitals: Vital Signs Temp Pulse Resp BP BP Pulse Ox 07/13/17 08:00 18 07/12/17 23:49 18 07/12/17 22:52 98.1 F 60 18 109/64 94 L 07/12/17 16:00 60 16 07/12/17 15:00 97.7 F 60 16 108/65 96/56 95 Intake and Output 07/12/17 07/13/17 07/13/17 22:59 06:59 14:59 Intake Total 800 480 Balance 800 480 Intake: Oral 800 480 Other: Voiding Method Toilet Toilet Toilet # Voids 3 1 Weight 101.605 kg Patient Weight 07/14/17 06:59 Weight 101.605 kg General appearance: The patient is alert, oriented, in no acute distress. HET: Head is normocephalic and atraumatic. Scalp dressing clean. Pupils are equal and reactive. Oropharynx is clear without lesions. Neck: Supple without lymphadenopathy. Trachea midline. Heart: S1 S2. Regular rate and rhythm. Lungs: No crackles or wheezes are heard. Abdomen: Soft, nontender, nondistended with bowel sounds. No peritoneal signs. No palpable organomegaly or masses. Extremities: Normal skin color and turgor. No cyanosis, rash, ulceration, clubbing, or edema. Radial and pedal pulses are 2/4 bilaterally. Neurological: No focal deficits. Strength and sensation are grossly intact. Results CBC & Chem 7: 07/13/17 08:58 07/13/17 08:58 Labs: Abnormal Lab Results - Last 24 Hours (Table) 07/12/17 07/12/17 07/12/17 Range/Units 12:07 17:13 20:38 RBC (4.30-5.90) m/uL Hgb (13.0-17.5) gm/dL Hct (39.0-53.0) % Sodium (137-145) mmol/L Chloride (98-107) mmol/L Carbon Dioxide (22-30) mmol/L BUN (9-20) mg/dL Creatinine (0.66-1.25) mg/dL Glucose (74-99) mg/dL POC Glucose (mg/dL) 305 H 247 H 219 H (75-99) mg/dL 07/13/17 07/13/17 07/13/17 Range/Units 07:15 08:58 08:58 RBC 3.86 L (4.30-5.90) m/uL Hgb 11.5 L (13.0-17.5) gm/dL Hct 36.7 L (39.0-53.0) % Sodium 135 L (137-145) mmol/L Chloride 92 L (98-107) mmol/L Carbon Dioxide 32 H (22-30) mmol/L BUN 33 H (9-20) mg/dL Creatinine 1.65 H (0.66-1.25) mg/dL Glucose 294 H (74-99) mg/dL POC Glucose (mg/dL) 271 H (75-99) mg/dL Abdominal x-ray: report reviewed (Dr. Stapleton) CT scan - chest: pending Assessment and Plan (1) Symptomatic anemia Narrative/Plan: 87-year-old male with a history of squamous cell carcinoma and reported brain carcinoma status post pelvic radiation treatments presents with symptoms and anemia fatigue nausea vomiting upper abdominal discomfort with constipation. Possible acute blood loss from GI track even though patient is not exhibiting overt symptoms of hematemesis medication melena. Current Visit: Yes Status: Acute Code(s): D64.9 - ANEMIA, UNSPECIFIED SNOMED Code(s): 136249866 Plan: 1. Patient is requesting oncology and pulmonology evaluation. He is also requesting endoscopic exams for workup of anemia he wants to know the source of anemia. Hemoccult stool testing. 2. Case was discussed with Dr. Martiny will proceed with EGD colonoscopy tomorrow for evaluation of presenting anemia. The pulverizer has discussed the risks, benefits and alternative therapies for the above-mentioned procedure and for both sedation/analgesia as well as necessary blood product administration, if indicated, as they pertain to this patient. The patient has indicated understanding and acceptance of the risks and procedures discussed. Thank you for this kind referral and the opportunity to participate in the care of your patient. This consultation was discussed with Dr. Stapleton. The impression and plan of care have been directed as dictated.
--- NOTE | 2017-07-13 12:16 | CT ---
EXAMINATION TYPE: CT chest wo con DATE OF EXAM: 07/13/2017 COMPARISON: 12/21/2016 and 11/15/2016 HISTORY: Shortness of breath CT DLP: 408.40 mGycm. Automated Exposure Control for Dose Reduction was Utilized. TECHNIQUE: CT scan of the thorax is performed without IV contrast. FINDINGS: LUNGS: There is continued enlargement of the both solid and cavitary bilateral pulmonary nodules. The largest cavitary lesion is seen within the right upper lobe now measuring 2.3 x 3.0 cm and previousl y measuring 1.5 cm. This has a thick wall and contains a small air-fluid level. Peribronchial thicken ing of the lingula and left lung apex are also present. Largest left cavitary lesion is seen within t he left upper lobe measuring 1.4 cm and previously subcentimeter. Some of the previously seen solid p ulmonary nodules have resolved in the interim. MEDIASTINUM: Extensive new mediastinal adenopathy is seen with the largest lymph nodes in the subcari nal space measuring 3.7 x 3.1 cm, within the right suprahilar region measuring approximately 3.8 x 2. 7 cm, within the aorticopulmonary window measuring 2 cm in short axis and within the prevascular spac e measuring up to 1.7 cm in short axis. No definite supraclavicular adenopathy is present. No axillar y adenopathy or internal mammary adenopathy. Moderate three-vessel coronary artery calcifications and left hemithorax cardiac device are noted. OTHER: Pneumobilia is similar to the prior exam of 12/21/2016. Gastric fundal diverticulum is again no mariana. Mild cortical renal atrophy is present. Moderate multilevel degenerative changes of the thoracic spine are seen. IMPRESSION: 1. The largest cavitary lesions have enlarged from the prior exam of 12/21/2016 and multiple other cecil id pulmonary nodules have also enlarged, however numerous pulmonary nodules have resolved in the inte rim and therefore primary diagnostic consideration should be 4 atypical infectious etiologies such as tuberculosis. Extensive mediastinal adenopathy has also developed in the interim and therefore neopl astic etiology such as squamous cell carcinoma be considered. Septic emboli are less likely considera tion. 2. Stable pneumobilia in comparison to the prior.
--- NOTE | 2017-07-13 12:17 | CDI ---
Last Revision, June 2017 Documentation Clarification Form Date: 07/13/2017 11:55:00 AM From: Crystal Smart Admit Date: 07/11/2017 4:27:00 PM Patient Name: Ryne Marte Visit Number: [id number] ATTENTION: The Clinical Documentation Specialists (CDI) and [facility] Coding Staff appreciate your assistance in clarifying documentation. Please respond to the clarification below the line at the bottom and electronically sign. The CDI & [facility] Coding staff will review the response and follow-up if needed. Please note: Queries are made part of the Legal Health Record. If you have any questions, please contact the author of this message via ITS. Dr. Lazaro Bailey, History/Risk Factors: COPD, CHF, DM, Dementia, brain cancer with radiation Clinical Indicators: BUN/CR/GFR: on admission BUN 33, CREATININE 1.31, GFR 52 Labs 1/4 BUN/Cr/GFR : BUN 33, CREATININE 1.65, GFR 40 Treatment: lab monitoring In order to capture the severity of condition, please clarify if the condition signifies: Acute renal failure, Please specify etiology (if known) Acute on chronic renal failure, please stage if known Chronic renal failure/Chronic Kidney disease (CKD) please stage if known CKD Stage 3 GFR 30-59 CKD other Stage please specify Other, please specify Unable to determine Please continue to document in your progress notes and discharge summary in order to capture severity of illness and risk of mortality. Include clinical findings that support your diagnosis. MTDD
[2017-07-13 12:31] LABS: Glucose,Whole Blood 411 mg/dL (75-99)
[2017-07-13] MEDS: FOLIC ACID 1 MG TAB PO SCH (13:15)
[2017-07-13] MEDS ORDERED: PEG 3350-NA SULF,BICARB,CL/KCL 4,000 ML BOTTLE PO ONE (16:00)
[2017-07-13 16:12] LABS: Glucose,Whole Blood 278 mg/dL (75-99)
[2017-07-13 17:36] LABS: Glucose,Whole Blood 247 mg/dL (75-99)
--- NOTE | 2017-07-13 18:25 | P.GSCN ---
History of Present Illness Consult date: 07/13/17 Reason for Consult: Anemia History of present illness: [id number] male admitted to Dr. Lazaro Smith service. Patient is well-known to myself. Patient was admitted with complaints of severe anemia. Patient's poor historian. He does not give any evidence of significant GI bleed. 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,"spots on lung" back pain, constipation History of Any Multi-Drug Resistant Organisms: None Reported Past Surgical History: Appendectomy, Cholecystectomy, Hernia Repair, Pacemaker, Tonsillectomy Additional Past Surgical History / Comment(s): lana CATARACTS WITH LENS IMPLANT, SKIN CANCER removed from head x3, thoracentesis Past Anesthesia/Blood Transfusion Reactions: No Reported Reaction Type of Cardiac Device: Permanent Pacemaker Device Placement Date:: 08/2015 Smoking Status: Former smoker - Past Family History Mother Family Medical History: No Reported History, Cancer Additional Family Medical History / Comment(s): LEUKEMIA Father Additional Family Medical History / Comment(s): WOUNDED IN WW1, MULTIPLE INJURES -LIVED TILL AGE 89 Brother(s) Family Medical History: Cancer Medications and Allergies Home Medications Medication Instructions Recorded Confirmed Type Aspirin EC [Ecotrin Low Dose] 81 mg PO QAM 10/13/14 07/11/17 History Folic Acid 1 mg PO DAILY@1300 10/13/14 07/11/17 History Lisinopril [Zestril] 5 mg PO DAILY 10/13/14 07/11/17 History Omeprazole [PriLOSEC] 20 mg PO HS 10/13/14 07/11/17 History [place]-3 Fatty Acids/Fish Oil [Fish 1 cap PO DAILY@1300 08/24/15 07/11/17 History Oil 1,000 mg Softgel] Potassium Chloride ER [K-Dur 20] 20 meq PO QAM 08/24/15 07/11/17 History metFORMIN HCL 1,000 mg PO QAM 02/21/16 07/11/17 History Fluticasone Nasal [place] [Flonase 2 spray EA NOSTRIL DAILY 03/25/16 07/11/17 History Nasal [place]] Magnesium Oxide [Mag-Ox] 400 mg PO HS 03/25/16 07/11/17 History Tamsulosin [Flomax] 0.4 mg PO HS 03/25/16 07/11/17 History Gabapentin [Neurontin] 300 mg PO BID 08/11/16 07/11/17 History Insulin Glargine [Lantus] 30 unit SQ QAM 08/11/16 07/11/17 History Metoprolol Tartrate [Lopressor] 25 mg PO HS 08/11/16 07/11/17 History Ferrous Sulfate [Iron (65 MG 325 mg PO HS 11/04/16 07/11/17 History Elemental)] Levothyroxine Sodium [Synthroid] 100 mcg PO DAILY 01/04/17 07/11/17 History Loratadine [Claritin] 10 mg PO DAILY@1300 01/04/17 07/11/17 History Furosemide [Lasix] 20 mg PO BID@0800,1400 03/07/17 07/11/17 History Montelukast Sodium [Singulair] 10 mg PO DAILY 04/11/17 07/11/17 History Cyanocobalamin [Vitamin B-12] 500 mcg PO DAILY@1300 05/08/17 07/11/17 History Insulin Aspart [NovoLOG Flexpen] See Protocol SQ AC-TID 05/08/17 07/11/17 History Ubidecarenone [Co Q-10] 200 mg PO DAILY@1300 05/08/17 07/11/17 History Artificial Tears-Hypromellose 1 drops BOTH EYES TID PRN 05/09/17 07/11/17 History [Artificial Tear Drops] HYDROcodone/APAP 10-325MG [[place] 1 tab PO Q4HR PRN 07/11/17 07/11/17 History 10-325] Allergies Allergy/AdvReac Type Severity Reaction Status Date / Time Gecfhzt-Xcc-Ulj Reductase Allergy Unknown Unknown Verified 07/11/17 15:56 Inhibitor Iodinated Contrast- Oral and AdvReac shakes Verified 07/11/17 15:56 IV Dye [Iodinated Contrast Media - IV Dye] Surgical - Exam Vital Signs Temp Pulse Resp BP Pulse Ox 97.5 F L 61 16 138/65 98 07/11/17 14:39 07/11/17 14:39 07/11/17 14:39 07/11/17 14:39 07/11/17 14:39 - General Slightly confused no distress - Eyes PERRL - ENT normal pinna - Neck no masses - Respiratory normal expansion - Cardiovascular Rhythm: regular - Abdomen Abdomen: soft, non tender Results - Labs 07/13/17 08:58 07/13/17 08:58 Abnormal Lab Results - Last 24 Hours (Table) 07/12/17 07/13/17 07/13/17 Range/Units 20:38 07:15 08:58 RBC 3.86 L (4.30-5.90) m/uL Hgb 11.5 L (13.0-17.5) gm/dL Hct 36.7 L (39.0-53.0) % Sodium (137-145) mmol/L Chloride (98-107) mmol/L Carbon Dioxide (22-30) mmol/L BUN (9-20) mg/dL Creatinine (0.66-1.25) mg/dL Glucose (74-99) mg/dL POC Glucose (mg/dL) 219 H 271 H (75-99) mg/dL 07/13/17 07/13/17 07/13/17 Range/Units 08:58 12:28 16:08 RBC (4.30-5.90) m/uL Hgb (13.0-17.5) gm/dL Hct (39.0-53.0) % Sodium 135 L (137-145) mmol/L Chloride 92 L (98-107) mmol/L Carbon Dioxide 32 H (22-30) mmol/L BUN 33 H (9-20) mg/dL Creatinine 1.65 H (0.66-1.25) mg/dL Glucose 294 H (74-99) mg/dL POC Glucose (mg/dL) 411 H 278 H (75-99) mg/dL 07/13/17 Range/Units 17:32 RBC (4.30-5.90) m/uL Hgb (13.0-17.5) gm/dL Hct (39.0-53.0) % Sodium (137-145) mmol/L Chloride (98-107) mmol/L Carbon Dioxide (22-30) mmol/L BUN (9-20) mg/dL Creatinine (0.66-1.25) mg/dL Glucose (74-99) mg/dL POC Glucose (mg/dL) 247 H (75-99) mg/dL Diabetes panel 07/13/17 Range/Units 08:58 Sodium 135 L (137-145) mmol/L Potassium 4.0 (3.5-5.1) mmol/L Chloride 92 L (98-107) mmol/L Carbon Dioxide 32 H (22-30) mmol/L BUN 33 H (9-20) mg/dL Creatinine 1.65 H (0.66-1.25) mg/dL Glucose 294 H (74-99) mg/dL Calcium 9.7 (8.4-10.2) mg/dL Calcium panel 07/13/17 Range/Units 08:58 Calcium 9.7 (8.4-10.2) mg/dL Pituitary panel 07/13/17 Range/Units 08:58 Sodium 135 L (137-145) mmol/L Potassium 4.0 (3.5-5.1) mmol/L Chloride 92 L (98-107) mmol/L Carbon Dioxide 32 H (22-30) mmol/L BUN 33 H (9-20) mg/dL Creatinine 1.65 H (0.66-1.25) mg/dL Glucose 294 H (74-99) mg/dL Calcium 9.7 (8.4-10.2) mg/dL Adrenal panel 07/13/17 Range/Units 08:58 Sodium 135 L (137-145) mmol/L Potassium 4.0 (3.5-5.1) mmol/L Chloride 92 L (98-107) mmol/L Carbon Dioxide 32 H (22-30) mmol/L BUN 33 H (9-20) mg/dL Creatinine 1.65 H (0.66-1.25) mg/dL Glucose 294 H (74-99) mg/dL Calcium 9.7 (8.4-10.2) mg/dL Assessment and Plan Assessment: Profound anemia. Patient is undergoing EGD and colonoscopy Dr. Estrada tomorrow. We will remain on standby.
[2017-07-13 20:06] LABS: Glucose,Whole Blood 290 mg/dL (75-99)
[2017-07-13] MEDS: BUDESONIDE 0.5 MG/2 ML NEBU INHALATION SCH (20:13)
[2017-07-13] MEDS: METOPROLOL TARTRATE 25 MG TAB PO SCH (20:28)
[2017-07-13] MEDS: TAMSULOSIN 0.4 MG CAP.ER.24H PO SCH (20:28)
[2017-07-13] MEDS: PANTOPRAZOLE 40 MG TABLET PO SCH (20:29)
--- NOTE | 2017-07-13 23:00 | PN ---
PROGRESS NOTE SUBJECTIVE: This is an 87-year-old white male with GI bleed, severe anemia, dementia, skin cancer. He has had a blood transfusion. He has multiple lesions in his lungs. Oncology consult is pending as well as Pulmonary consult. GI doctor has seen him for possible GI bleed. He is probably going to get an EGD and colonoscopy tomorrow. PHYSICAL EXAMINATION: Vital signs are reviewed. Cardiovascular S1, S2. Lungs transmitted upper sounds. Hematology negative Homans. Psych fair mood and affect. Ophthalmologic, pupils equal, react to light and accommodation. ASSESSMENT: 1. Gastrointestinal bleed and severe anemia. 2. Dementia. 3. Skin cancer, squamous cell. PLAN: EGD and colonoscopy are being done. Oncology and Pulmonary consult for multiple pulmonary masses and lesions and possible cancer spread through his body. MMODL / IJN: [id number] /
[2017-07-14] MEDS: HYDROcodone/APAP 10-325MG 1 EACH TAB PO SCH ×7 (01:19→23:55)
[2017-07-14] MEDS: LEVOTHYROXINE 100 MCG TAB PO SCH (04:48)
[2017-07-14 07:24] LABS: Glucose,Whole Blood 298 mg/dL (75-99)
[2017-07-14] MEDS: BUDESONIDE 0.5 MG/2 ML NEBU INHALATION SCH ×2 (07:48→19:41)
[2017-07-14] MEDS: IPRATROPIUM-ALBUTEROL 3 ML NEB INHALATION SCH ×4 (07:48→19:40)
[2017-07-14] MEDS: INSULIN ASPART 100 UNIT/ML 1 ML 10 ML VIAL SQ SCH ×3 (08:12→17:50)
[2017-07-14] MEDS: FUROSEMIDE 20 MG TAB PO SCH ×2 (08:13→15:06)
[2017-07-14] MEDS: GABAPENTIN 300 MG CAP PO SCH ×2 (08:30→22:10)
[2017-07-14] MEDS: POTASSIUM CHLORIDE ER 20 MEQ TAB.ER PO SCH (08:30)
[2017-07-14] MEDS: LISINOPRIL 5 MG TAB PO SCH (08:30)
[2017-07-14] MEDS: MAG HYDROX/AL HYDROX/SIMETH 30 ML, LIDOCAINE VISCOUS 30 ML, diphenhydrAMINE ELIXIR 75 M... PO SCH ×12 (08:31→22:10)
[2017-07-14 11:15] LABS: Glucose,Whole Blood 247 mg/dL (75-99)
[2017-07-14] MEDS: FOLIC ACID 1 MG TAB PO SCH (12:07)
--- NOTE | 2017-07-14 13:24 | P.PN ---
Subjective Progress Note Date: 07/14/17 07/14/16- patient seen examined and evaluated on rounds. patient is going for EGD and Colonoscopy today. Upon examination the patient is resting in bedside chair on 2 L of supplemental oxygen via nasal cannula. Continues to have shortness of breath with exertion and activity. He has had a productive cough with white sputum that has been slightly blood tinged, however very scant. Patient is afebrile no further complaints. All labs and reports have been reviewed. CT reviewed by Dr. Polk, and does show enlarged cavitary lesions. 07/13/16- This is an 87-year-old male patient well-known to our services be seen and examined and evaluated today on rounds. The patient does have a significant past medical history for squamous cell carcinoma of the scalp and was receiving radiation treatments in the outpatient setting with Dr. Schultz. The patient came into the emergency room via EMS for evaluation and workup of abdominal pain the patient had not have a bowel movement in over 5 days and was experiencing abdominal cramping and nausea. The patient states he is also not eating well and has a poor appetite. The patient has been very fatigued at home and has been unable to care for himself lately his caregiver was also concerned that the patient is unsafe to live at home. Upon workup in the emergency room the patient did undergo an acute abdomen series of x-ray which did show a right midlung cavitary lesion appearing thick walled which is likely neoplastic with his history of pulmonary nodules. Other etiologies could be cavitary pneumonia or septic emboli. These findings were compared to a Chest CT on 12/21/16. Patient was also noted to have lab work that revealed acute anemia with hemoglobin of 6.3 his digital rectal exam was negative for stool in rectal vault as well as negative for stool guaiac. Patient was given 2 units of packed red blood cells. Was also noted that the patient had a albumin of 2.8. The patient was admitted for further workup, and treatment as well as with a GI consult for possible GI Bleed. Patient is scheduled for EGD and colonoscopy tomorrow. Of note the patient did have a bronchoscopy with Dr. Polk on 2016 which was negative except for Elle. Upon examination the patient is resting in bedside chair on 2 L of supplemental oxygen via nasal cannula. Continues to have shortness of breath with exertion and activity. He has had a productive cough with white sputum that has been slightly blood tinged. Patient also noted to have bloody bowel movement yesterday. Patient is afebrile no further complaints. All labs and reports have been reviewed. Objective - Vital Signs Vital signs: Vital Signs Temp 97.9 F 07/14/17 07:00 Pulse 64 07/14/17 07:58 Resp 16 07/14/17 07:43 BP 114/67 07/14/17 07:00 Pulse Ox 97 07/14/17 07:00 Intake & Output 07/13/17 07/14/17 07/14/17 18:59 06:59 18:59 Intake Total 1380 620 400 Balance 1380 620 400 Weight 101.605 kg 101.605 kg Intake: Oral 1380 620 400 Other: Voiding Method Toilet Toilet Toilet # Voids 3 2 # Bowel Movements 3 - Exam GENERAL EXAM: Alert, comfortable in no apparent distress. HEAD: Slight skull formation abnormality, patient states is from cancer of the scalp. EYES: Normal reaction of pupils, equal size. NOSE: Clear with pink turbinates. THROAT: No erythema or exudates. NECK: No masses, no JVD. CHEST: No chest wall deformity. LUNGS: Lungs noted to be diminished bilaterally with some faint expiratory wheezing noted throughout. Bases diminished CVS: S1 and S2 normal with no audible mumurs, regular rhythm. ABDOMEN: No hepatosplenomegaly, normal bowel sounds, no guarding or rigidity. EXTREMITIES: +1 LLE edema noted, pedal pulses palpable. SKIN: Scalp dry with scabs. CENTRAL NERVOUS SYSTEM: No focal deficits, tone is normal in all 4 extremities. - Labs CBC & Chem 7: 07/13/17 08:58 07/13/17 08:58 Labs: Abnormal Lab Results - Last 24 Hours (Table) 07/13/17 07/13/17 07/13/17 Range/Units 16:08 17:32 20:05 POC Glucose (mg/dL) 278 H 247 H 290 H (75-99) mg/dL 07/14/17 07/14/17 Range/Units 07:22 11:14 POC Glucose (mg/dL) 298 H 247 H (75-99) mg/dL Assessment and Plan Plan: Assessment Pulmonary cavitary lesion with history of multiple pulmonary nodules Anemia, suspect blood loss r/t GI Bleed Squamous cell skin cancer Moderate protein calorie malnutrition with poor appetite and failure to thrive History of COPD History of diastolic congestive heart failure Plan Medications have been reviewed and will be continued as ordered. We will add DuoNeb and budesonide via nebulizer. Continue with pulmonary hygiene, coughing and deep breathing exercises, and supportive care. Supplemental oxygen to maintain oxygen saturations of 92% or better. Continue nebulizer treatments. Patient is also being seen by GI services and will undergo an EGD and colonoscopy tomorrow. Patient could possibly undergo a bronchoscopy next week. We'll also obtain a sputum culture. Initiate and encourage incentive spirometer. GI and DVT prophylaxis. We will continue to monitor labs/results and adjust treatment as necessary. Further recommendations pending. I performed an examination of the patient and discussed their management with the nurse practitioner. I have reviewed the nurse practitioner's note and agree with the documented findings and plan of care.
[2017-07-14] MEDS ORDERED: LIDOCAINE 1% INJ 10MG/ML (20 ML MDV) ONE (14:26)
[2017-07-14] MEDS ORDERED: PROPOFOL 10 MG/ML 20 ML VIAL IV ONE (14:26)
[2017-07-14] MEDS ORDERED: SODIUM CHLORIDE 0.9% 1,000 ML IV ONE (15:13)
--- NOTE | 2017-07-14 16:16 | P.PN ---
Progress Note - Text Progress Note Date: 07/14/17 The patient feels the same today. He is Justin his bowel prep. He is scheduled to have his colonoscopy by Dr. Estrada today.
[2017-07-14 16:59] LABS: Glucose,Whole Blood 176 mg/dL (75-99)
--- NOTE | 2017-07-14 17:19 | P.CONS ---
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 He presented with a large fungating mass over the left posterior vertex, and on the anterior calvarium there is an invasive lesion with bone destruction. He underwent palliative radiotherapy to those two areas finishing on 05/03/2017. The patient was admitted and found to have a hemoglobin of 6.3. He underwent an EGD/colonoscopy earlier today, which revealed no clear source of bleeding. He has noted some increased shortness of breath recently. A CT of the chest from 07/13/17 revealed increased size of multiple solid/cavitary nodules. A new finding however is extensive mediastinal adenopathy, low density nodes which were not present from this past summer. Dr. Polk has been consulted regarding these findings and possible bronchoscopy. Regarding his scalp lesions, he no longer has pain/headaches that he presented with. The large posterior lesion has scabbed over, and no longer drains. He still has dressing changes 1-2x per week. The patient admits he is having difficulty taking care of himself at home, interested in possible placement. Review of Systems Constitutional: Denies chills, Denies fever Ears: deny: decreased hearing Ears, nose, mouth and throat: Denies headache, Denies neck lump Cardiovascular: Reports dyspnea on exertion, Denies chest pain Respiratory: Denies cough Gastrointestinal: Denies abdominal pain Genitourinary: Denies dysuria Psychiatric: Denies confusion 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,"spots on lung" back pain, constipation History of Any Multi-Drug Resistant Organisms: None Reported Past Surgical History: Appendectomy, Cholecystectomy, Hernia Repair, Pacemaker, Tonsillectomy Additional Past Surgical History / Comment(s): lana CATARACTS WITH LENS IMPLANT, SKIN CANCER removed from head x3, thoracentesis Past Anesthesia/Blood Transfusion Reactions: No Reported Reaction Type of Cardiac Device: Permanent Pacemaker Device Placement Date:: 08/2015 Smoking Status: Former smoker - Past Family History Mother Family Medical History: No Reported History, Cancer Additional Family Medical History / Comment(s): LEUKEMIA Father Additional Family Medical History / Comment(s): WOUNDED IN WW1, MULTIPLE INJURES -LIVED TILL AGE 89 Brother(s) Family Medical History: Cancer Medications and Allergies Home Medications Medication Instructions Recorded Confirmed Type Aspirin EC [Ecotrin Low Dose] 81 mg PO QA 10/13/14 07/11/17 History Folic Acid 1 mg PO DAILY@1300 10/13/14 07/11/17 History Lisinopril [Zestril] 5 mg PO DAILY 10/13/14 07/11/17 History Omeprazole [PriLOSEC] 20 mg PO 10/13/14 07/11/17 History [place]-3 Fatty Acids/Fish Oil [Fish 1 cap PO DAILY@1300 08/24/15 07/11/17 History Oil 1,000 mg Softgel] Potassium Chloride ER [K-Dur 20] 20 meq PO [facility] 08/24/15 07/11/17 History metFORMIN HCL 1,000 mg PO [facility] 02/21/16 07/11/17 History Fluticasone Nasal [place] [Flonase 2 spray EA NOSTRIL DAILY 03/25/16 07/11/17 History Nasal [place]] Magnesium Oxide [Mag-Ox] 400 mg PO 03/25/16 07/11/17 History Tamsulosin [Flomax] 0.4 mg PO 03/25/16 07/11/17 History Gabapentin [Neurontin] 300 mg PO BID 08/11/16 07/11/17 History Insulin Glargine [Lantus] 30 unit SQ QA 08/11/16 07/11/17 History Metoprolol Tartrate [Lopressor] 25 mg PO 08/11/16 07/11/17 History Ferrous Sulfate [Iron (65 MG 325 mg PO HS 11/04/16 07/11/17 History Elemental)] Levothyroxine Sodium [Synthroid] 100 mcg PO DAILY 01/04/17 07/11/17 History Loratadine [Claritin] 10 mg PO DAILY@1300 01/04/17 07/11/17 History Furosemide [Lasix] 20 mg PO BID@0800,1400 03/07/17 07/11/17 History Montelukast Sodium [Singulair] 10 mg PO DAILY 04/11/17 07/11/17 History Cyanocobalamin [Vitamin B-12] 500 mcg PO DAILY@1300 05/08/17 07/11/17 History Insulin Aspart [NovoLOG Flexpen] See Protocol SQ AC-TID 05/08/17 07/11/17 History Ubidecarenone [Co Q-10] 200 mg PO DAILY@1300 05/08/17 07/11/17 History Artificial Tears-Hypromellose 1 drops BOTH EYES TID PRN 05/09/17 07/11/17 History [Artificial Tear Drops] HYDROcodone/APAP 10-325MG [[place] 1 tab PO Q4HR PRN 07/11/17 07/11/17 History 10-325] Allergies Allergy/AdvReac Type Severity Reaction Status Date / Time Huxrpqi-Ady-Bgx Reductase Allergy Unknown Unknown Verified 07/11/17 15:56 Inhibitor Iodinated Contrast- Oral and AdvReac shakes Verified 07/11/17 15:56 IV Dye [Iodinated Contrast Media - IV Dye] Physical Exam Vitals: Vital Signs Temp Pulse Pulse Resp BP Pulse Ox 07/14/17 16:00 76 18 07/14/17 15:00 97.8 F 76 18 122/70 95 07/14/17 07:58 64 07/14/17 07:50 60 07/14/17 07:43 16 07/14/17 07:00 97.9 F 68 18 114/67 97 07/13/17 23:10 16 07/13/17 23:00 98.5 F 60 16 162/94 93 L 07/13/17 20:25 63 07/13/17 20:14 64 Intake and Output 07/14/17 07/14/17 07/14/17 06:59 14:59 22:59 Intake Total 400 200 Balance 400 200 Intake: IV 200 Oral 400 Other: Voiding Method Toilet Toilet Toilet # Voids 2 # Bowel Movements 3 Weight 101.605 kg 101.605 kg Patient Weight 07/15/17 06:59 Weight 101.605 kg - Constitutional General appearance: cooperative, no acute distress - EENT Eyes: EOMI, PERRLA ENT: hearing grossly normal - Neck Neck: no lymphadenopathy - Respiratory Respiratory: bilateral: diminished - Cardiovascular Rhythm: regular - Gastrointestinal General gastrointestinal: no distended, no tenderness - Integumentary Integumentary: no calor, ulcer (Posterior left scalp lesion is improved from previous visit - no significant drainge - has scabbed over) - Neurologic Neurologic: CNII-XII intact - Musculoskeletal Musculoskeletal: no generalized weakness - Psychiatric Psychiatric: A&O x's 3, appropriate affect Results CBC & Chem 7: 07/13/17 08:58 07/13/17 08:58 Labs: Abnormal Lab Results - Last 24 Hours (Table) 07/13/17 07/13/17 07/14/17 Range/Units 17:32 20:05 07:22 POC Glucose (mg/dL) 247 H 290 H 298 H (75-99) mg/dL 07/14/17 07/14/17 Range/Units 11:14 16:57 POC Glucose (mg/dL) 247 H 176 H (75-99) mg/dL CT scan - chest: report reviewed, image reviewed Assessment and Plan Plan: 1. Enlarged mediastinal adenopathy: Not previously seen on prior CT scans from 6 months ago. Strange appearance, could represent malignancy of atypical infection. The patient has had some progression of his pulmonary nodules size, which have been previously assumed to be metastases. Agree with pulmonary work- up; if possible tissue sampling to rule out malignancy. 2. Previously treated scalp lesions: Have noted improvement, no pain or drainage. Continue observation and dressing changes for posterior lesion. Time with Patient: Greater than 30
--- NOTE | 2017-07-14 17:25 | P.PCN ---
Date of Procedure: 07/14/17 Procedure(s) Performed: Procedures: 1. Esophagogastroduodenoscopy and biopsy. 2. Colonoscopy and biopsy. Preoperative diagnosis: GI bleeding and anemia. Postoperative diagnosis: 1. Mild to moderate antral gastritis with no ulcers or active bleeding. 2. Polypoid growth in the cecum, likely benign without evidence of bleeding multiple biopsies obtained. 3. Diverticulosis with no evidence of acute diverticulitis or strictures. Preparation: GoLYTELY prep. Sedation: Was provided by anesthesia. Brief clinical history: The patient is an 87-year-old male presented with acute abdominal, pain constipation and anemia. Patient denies overt bleeding such as hematemesis, hematochezia or melena. No nausea and vomiting. Has been having increased fatigue. Admission hemoglobin 6.3. MCV 92. Platelet 253. BUN 33. Creatinine 1.3. LFTs unremarkable. Received 2 units of blood current hemoglobin 11.5. The details are summarized in the history and physical and dictated consultations and progress notes. This evaluation is to assess for a source of bleeding. Procedure: With the patient on his left lateral decubitus position and after informed consent and adequate sedation, I passed the Olympus-GIF 160 video upper endoscope the cricopharyngeus down the esophagus. GE junction was around 43 cm from the incisors and there was no definite hiatal hernia. There was no obvious erosions, ulcers, strictures or Duarte's esophagus. The endoscope was then passed into the stomach which was insufflated with air and inspected in detail including the retroflex view in the cardia. There was xyre-sn-lwkteqdt gastritis noted in the antrum with mottling, erythema and some erosions but no ulcers or active bleeding. Pyloric channel did not show any ulcers. Duodenal bulb post bulbar area and descending duodenum appeared within normal limits. I obtained biopsies from the antrum then the endoscope was withdrawn and I proceeded with the colonoscopy. Perianal area did not show any fissures or fistulas. There were no masses felt on digital rectal examination. The Olympus CFQ 160L video colonoscope was then inserted in the rectum and the usual fashion and advanced to the cecum. The preparation was less than ideal. There was occasional diverticular orifices seen in the sigmoid and in the proximal transverse colon and around the hepatic flexure with no evidence of acute diverticulitis or strictures. No significant polyps were seen with the exception of a polypoi growth within the cecum which was occupying the area behind the ileocecal valve. It appeared benign not ulcerated or spontaneously bleeding. I obtained pictures of that area and I obtained multiple biopsies. I retroflexed the endoscope in the rectum before the endoscope was withdrawn. The patient tolerated the procedure well. Plan: The patient was reassured. Will await biopsy results and make further plans based on his course and biopsy results. The findings on this exam both in the stomach or in the cecum, do not appear to explain the profound anemia that the patient had on admission. Further workup including capsule endoscopy would be considered depending on his course and biopsy results. We will continue to follow with you with interest.
[2017-07-14 20:33] LABS: Glucose,Whole Blood 288 mg/dL (75-99)
[2017-07-14] MEDS: PANTOPRAZOLE 40 MG TABLET PO SCH (22:10)
[2017-07-14] MEDS: METOPROLOL TARTRATE 25 MG TAB PO SCH (22:10)
[2017-07-14] MEDS: TAMSULOSIN 0.4 MG CAP.ER.24H PO SCH (22:10)
[2017-07-14] MEDS: POLYETHYLENE GLYCOL 3350 17 GM POWD.PACK PO SCH (22:16)
[2017-07-15] MEDS: HYDROcodone/APAP 10-325MG 1 EACH TAB PO SCH ×6 (03:54→23:45)
[2017-07-15] MEDS: LEVOTHYROXINE 100 MCG TAB PO SCH (05:24)
[2017-07-15 07:25] LABS: Glucose,Whole Blood 267 mg/dL (75-99)
[2017-07-15] MEDS: IPRATROPIUM-ALBUTEROL 3 ML NEB INHALATION SCH ×3 (07:36→19:45)
[2017-07-15] MEDS: BUDESONIDE 0.5 MG/2 ML NEBU INHALATION SCH ×2 (07:36→19:45)
[2017-07-15] MEDS: MAG HYDROX/AL HYDROX/SIMETH 30 ML, LIDOCAINE VISCOUS 30 ML, diphenhydrAMINE ELIXIR 75 M... PO SCH ×12 (08:04→22:00)
[2017-07-15] MEDS: INSULIN ASPART 100 UNIT/ML 1 ML 10 ML VIAL SQ SCH ×3 (08:04→18:04)
[2017-07-15] MEDS: FUROSEMIDE 20 MG TAB PO SCH ×2 (08:05→12:53)
[2017-07-15] MEDS: GABAPENTIN 300 MG CAP PO SCH ×2 (08:05→22:00)
[2017-07-15] MEDS: POTASSIUM CHLORIDE ER 20 MEQ TAB.ER PO SCH (08:05)
[2017-07-15] MEDS: LISINOPRIL 5 MG TAB PO SCH (08:06)
--- NOTE | 2017-07-15 08:17 | PN ---
PROGRESS NOTE SUBJECTIVE: This is a white male, admitted to the hospital with multiple pulmonary nodules. He had EGD and colonoscopy today for GI bleeding. He is on broad-spectrum IV antibiotics and awaiting Oncology and Hematology consults. Cardiovascular S1, S2. Lungs scattered rhonchi and wheeze. Hematology negative Homans. GI is soft. Endocrine: BMI is over 30. ASSESSMENT: 1. Gastrointestinal bleed. 2. Severe anemia. 3. Dementia. 4. Multiple pulmonary nodules. 5. Possible pulmonary abscess. Continue with broad-spectrum antibiotics. Multiple oncology consults and hematology consults. MMODL / IJN: [id number] /
--- NOTE | 2017-07-15 10:50 | P.PN ---
Progress Note - Text Progress Note Date: 07/15/17 The patient resting comfortably in his bed. He denies any significant abdominal pain. On exam is lesser stable. His abdomen soft. There is no rebound or guarding. Patient underwent upper and lower endoscopy by Dr. Estrada yesterday. He is found have colonic polyps. Patiently managed medically. No surgical intervention is planned.
[2017-07-15 11:03] LABS: Glucose,Whole Blood 387 mg/dL (75-99)
[2017-07-15] MEDS: FOLIC ACID 1 MG TAB PO SCH (12:51)
--- NOTE | 2017-07-15 13:38 | P.PN ---
Subjective Progress Note Date: 07/15/17 Principal diagnosis: Bilateral multiple nodules including cavitary lesions, large mediastinal lymphadenopathy, history of a squamous cell cancer of the skin 07/15/2017, patient seen and evaluated examined during the rounds clinically doing better I have reviewed the computed tomography scan finding with the patient at length patient would like to proceed with bronchoscopy and biopsy as he is more interested in more definitive intervention, he also expresses his wishes to be a full code 07/14/17- patient seen examined and evaluated on rounds. patient is going for EGD and Colonoscopy today. Upon examination the patient is resting in bedside chair on 2 L of supplemental oxygen via nasal cannula. Continues to have shortness of breath with exertion and activity. He has had a productive cough with white sputum that has been slightly blood tinged, however very scant. Patient is afebrile no further complaints. All labs and reports have been reviewed. CT reviewed by Dr. Polk, and does show enlarged cavitary lesions. 07/13/17- This is an 87-year-old male patient well-known to our services be seen and examined and evaluated today on rounds. The patient does have a significant past medical history for squamous cell carcinoma of the scalp and was receiving radiation treatments in the outpatient setting with Dr. Schultz. The patient came into the emergency room via EMS for evaluation and workup of abdominal pain the patient had not have a bowel movement in over 5 days and was experiencing abdominal cramping and nausea. The patient states he is also not eating well and has a poor appetite. The patient has been very fatigued at home and has been unable to care for himself lately his caregiver was also concerned that the patient is unsafe to live at home. Upon workup in the emergency room the patient did undergo an acute abdomen series of x-ray which did show a right midlung cavitary lesion appearing thick walled which is likely neoplastic with his history of pulmonary nodules. Other etiologies could be cavitary pneumonia or septic emboli. These findings were compared to a Chest CT on 12/21/16. Patient was also noted to have lab work that revealed acute anemia with hemoglobin of 6.3 his digital rectal exam was negative for stool in rectal vault as well as negative for stool guaiac. Patient was given 2 units of packed red blood cells. Was also noted that the patient had a albumin of 2.8. The patient was admitted for further workup, and treatment as well as with a GI consult for possible GI Bleed. Patient is scheduled for EGD and colonoscopy tomorrow. Of note the patient did have a bronchoscopy with Dr. Polk on 2016 which was negative except for Elle. Upon examination the patient is resting in bedside chair on 2 L of supplemental oxygen via nasal cannula. Continues to have shortness of breath with exertion and activity. He has had a productive cough with white sputum that has been slightly blood tinged. Patient also noted to have bloody bowel movement yesterday. Patient is afebrile no further complaints. All labs and reports have been reviewed. Objective - Vital Signs Vital signs: Vital Signs Temp 97.4 F L 07/15/17 07:00 Pulse 76 07/15/17 13:27 Resp 18 07/15/17 07:00 BP 95/54 07/15/17 07:00 Pulse Ox 100 07/15/17 07:39 Intake & Output 07/14/17 07/15/17 07/15/17 18:59 06:59 18:59 Intake Total 600 240 Balance 600 240 Weight 101.605 kg 101.605 kg Intake: IV 200 Oral 400 240 Other: Voiding Method Toilet Toilet Toilet # Voids 2 2 - Exam GENERAL EXAM: Alert, comfortable in no apparent distress. HEAD: Slight skull formation abnormality, patient states is from cancer of the scalp. EYES: Normal reaction of pupils, equal size. NOSE: Clear with pink turbinates. THROAT: No erythema or exudates. NECK: No masses, no JVD. CHEST: No chest wall deformity. LUNGS: Lungs noted to be diminished bilaterally with some faint expiratory wheezing noted throughout. Bases diminished CVS: S1 and S2 normal with no audible mumurs, regular rhythm. ABDOMEN: No hepatosplenomegaly, normal bowel sounds, no guarding or rigidity. EXTREMITIES: +1 LLE edema noted, pedal pulses palpable. SKIN: Scalp dry with scabs. CENTRAL NERVOUS SYSTEM: No focal deficits, tone is normal in all 4 extremities. - Labs CBC & Chem 7: 07/13/17 08:58 07/13/17 08:58 Labs: Abnormal Lab Results - Last 24 Hours (Table) 07/14/17 07/14/17 07/15/17 Range/Units 16:57 20:29 07:02 POC Glucose (mg/dL) 176 H 288 H 267 H (75-99) mg/dL 07/15/17 Range/Units 10:57 POC Glucose (mg/dL) 387 H (75-99) mg/dL Assessment and Plan Assessment: Assessment Pulmonary cavitary lesion with history of multiple pulmonary nodules, these lesions are multiple and unusual bacterial or fungal infection cannot be excluded, metastatic cancer also cannot be excluded, noninfectious pulmonary in phlegm atrial prognosis is a possibility but less likely, more definitive intervention require a tissue biopsy, for that patient is being scheduled for bronchoscopy and transbronchial lung biopsy, side effect complication alternating risk has been explained to the patient at length Anemia, suspect blood loss r/t GI Bleed Squamous cell skin cancer Moderate protein calorie malnutrition with poor appetite and failure to thrive History of COPD History of diastolic congestive heart failure Plan Medications have been reviewed and will be continued as ordered. We will cont DuoNeb and budesonide via nebulizer. Continue with pulmonary hygiene, coughing and deep breathing exercises, and supportive care. Supplemental oxygen to maintain oxygen saturations of 92% or better. Continue nebulizer treatments. Patient is also being seen by GI services and will undergo an EGD and colonoscopy tomorrow. Patient could possibly undergo a bronchoscopy next week. We'll also obtain a sputum culture. Initiate and encourage incentive spirometer. GI and DVT prophylaxis. We will continue to monitor labs/results and adjust treatment as necessary. Patient is being scheduled for bronchoscopy and transbronchial lung biopsy under fluoroscopy for Monday late morning or early afternoon, as dictated above procedure alternative complication has been explained to the patient. Patient Understood them and would like to proceed Further recommendations pending. Time with Patient: Greater than 30
[2017-07-15] MEDS ORDERED: MENTHOL-CAMPHOR LOTION 222 APPLIC/222 ML BOTTLE TOPICAL PRN (15:06)
--- NOTE | 2017-07-15 15:33 | P.PN ---
Progress Note - Text Consult dictated Impression: 1- Multiple pulmonary nodules and mediastinal lymphadenopathy highly suspicious of malignancy > ? Metastatic SCC of skin V/S Primary thoracic malignancy 2- Anorexia and weight loss> Likely 2nd to suspected malignancy 3- SCC of scalp > S/P XRT (April 2017) Rec: 1- Disgnostic Bronchoscopy with Huerta needle biopsy of subcarinal Lymphadenopathy 2- Further therapeutic recommendations to follow.
[2017-07-15 17:36] LABS: Glucose,Whole Blood 229 mg/dL (75-99)
[2017-07-15 20:37] LABS: Glucose,Whole Blood 237 mg/dL (75-99)
[2017-07-15] MEDS: TAMSULOSIN 0.4 MG CAP.ER.24H PO SCH (22:00)
[2017-07-15] MEDS: PANTOPRAZOLE 40 MG TABLET PO SCH (22:00)
[2017-07-15] MEDS: METOPROLOL TARTRATE 25 MG TAB PO SCH (22:00)
[2017-07-15] MEDS: POLYETHYLENE GLYCOL 3350 17 GM POWD.PACK PO SCH (23:20)
[2017-07-16] MEDS: HYDROcodone/APAP 10-325MG 1 EACH TAB PO SCH ×5 (04:04→20:05)
[2017-07-16] MEDS: LEVOTHYROXINE 100 MCG TAB PO SCH (05:47)
[2017-07-16 07:05] LABS: Glucose,Whole Blood 283 mg/dL (75-99)
[2017-07-16] MEDS: INSULIN ASPART 100 UNIT/ML 1 ML 10 ML VIAL SQ SCH ×4 (08:12→21:01)
--- NOTE | 2017-07-16 08:15 | CONS ---
CONSULTATION ADMITTING PHYSICIAN: Dr. Lazaro Bailey REASON FOR CONSULTATION: Weight loss and potential thoracic malignancy. HISTORY OF ILLNESS: Mr. 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 He received palliative radiation therapy by Dr. Schultz at [facility]. The patient presented to the hospital with abdominal pain and constipation, not having bowel movement for 6 days. He stated not feeling well and having progressive anorexia with increasing shortness of breath. Chest x-ray and subsequently CT scan of the chest revealed mediastinal lymphadenopathy and multiple intrapulmonary lesion, all suspicious for thoracic malignancy. The patient was seen by GI and had EGD and colonoscopy. All failed to reveal any source of malignancy. He was evaluated and followed by Pulmonary as well. PAST MEDICAL HISTORY: 1. Squamous cell carcinoma of the scalp. 2. Congestive heart failure. 3. Adult onset type 2 diabetes mellitus. 4. Hyperlipidemia. 5. Hypertension. 6. Benign prostatic hypertrophy. 7. Sleep apnea. PAST SURGICAL HISTORY: Including appendectomy, cholecystectomy, angiography, pacemaker placement. MEDICATIONS: Current medications reviewed and listed in the electronic medical record system. SOCIAL HISTORY: Prior history of smoking and denies any excessive use of alcohol. REVIEW OF SYSTEMS: Progressive weakness and anorexia and weight loss. Constipation as stated. EXAMINATION: The patient appeared alert and oriented. Skin is warm and dry. Hair distribution is within normal for age and gender. He has large scalp lesion in the posterior vortex. Blood pressure was 102/53, pulse is 77 and regular, respiratory rate was 18, not labored. Temperature was 97.7. No pathologic lymphadenopathy. Trachea is midline. Chest was clear with good air exchange bilaterally. HEART: Sounds are normal. Abdomen was soft. Liver and spleen were not clinically palpable. No mass, tenderness or inguinal lymphadenopathy. Extremities appeared to be grossly unremarkable. Range of motion was within normal limits. No deformity is seen. Neurologic examination showed no focal motor or sensory deficits. IMPRESSION: 1. Multiple mediastinal and thoracic abnormalities highly suggestive off malignancy, question metastatic squamous cell carcinoma versus primary thoracic malignancy. 2. History of squamous cell carcinoma of the scalp, status post radiation to the left posterior vertex in April of 2017. 3. Multiple medical comorbidities. RECOMMENDATION: 1. I discussed the imaging studies and results with the patient at length. Thoracic malignancy is highly suspected. 2. Strongly advised bronchoscopy and will need a biopsy of subcarinal lymph node which was readily accessible through the Huerta needle biopsy per CT scan films. All reviewed with the patient today. 3. Further therapeutic recommendations to follow pending findings on bronchoscopy and biopsy. The patient is not a candidate for systemic chemotherapy however, especially if metastatic cutaneous carcinoma was identified. We will follow the patient along with you in the hospital. Further information to follow. Thank you for asking us to participate in the care of Mr. Marte. LIZZY / SAPNA: [id number] /
[2017-07-16] MEDS: FUROSEMIDE 20 MG TAB PO SCH ×2 (08:17→13:05)
[2017-07-16] MEDS: MAG HYDROX/AL HYDROX/SIMETH 30 ML, LIDOCAINE VISCOUS 30 ML, diphenhydrAMINE ELIXIR 75 M... PO SCH ×12 (08:18→20:10)
[2017-07-16] MEDS: LISINOPRIL 5 MG TAB PO SCH (08:18)
[2017-07-16] MEDS: GABAPENTIN 300 MG CAP PO SCH ×2 (08:18→20:08)
[2017-07-16] MEDS: POTASSIUM CHLORIDE ER 20 MEQ TAB.ER PO SCH (08:18)
--- NOTE | 2017-07-16 09:39 | PN ---
PROGRESS NOTE SUBJECTIVE: This is a white male 87 years old with multiple pulmonary lesions, possibly abscesses versus pulmonary nodules or squamous cell carcinoma spread to lungs. Remains on broad- spectrum antibiotics, IV steroids. Oncology and Radiation Oncology and regular Hematology Oncology consults are pending. CARDIOVASCULAR: S1, S2. LUNGS: Scattered rhonchi and wheeze. HEMATOLOGY: Negative Homans. PSYCH: Fair mood and affect. ENDOCRINE: BMI is over 30. ASSESSMENT: 1. Obesity. 2. Gastrointestinal bleed. 3. Severe anemia. 4. Dementia. 5. Skin cancer skull. PLAN: Continue with broad-spectrum antibiotics. Await oncology recommendations. IV steroids, IV antibiotics, updraft treatments will be given. MMODL / IJN: [id number] /
[2017-07-16] MEDS: BUDESONIDE 0.5 MG/2 ML NEBU INHALATION SCH ×2 (09:56→20:46)
[2017-07-16] MEDS: IPRATROPIUM-ALBUTEROL 3 ML NEB INHALATION SCH ×3 (09:57→20:46)
[2017-07-16 11:19] LABS: Glucose,Whole Blood 292 mg/dL (75-99)
[2017-07-16] MEDS ORDERED: MENTHOL-ZINC OXIDE OINT 113 GM TUBE TOPICAL PRN (11:33)
[2017-07-16] MEDS: methylPREDNISolone SOD SUCCI 40 MG/ML 1 ML VIAL IV SCH ×2 (11:48→16:29)
[2017-07-16] MEDS: FOLIC ACID 1 MG TAB PO SCH (11:53)
--- NOTE | 2017-07-16 13:03 | P.PN ---
Subjective Progress Note Date: 07/16/17 Principal diagnosis: Abdominal pain Patient seen and examined. Covering for Dr. Polk. The patient has multiple complaints including his room is too cold and causing his arthritis to flareup. He states his shoulders and his hands hurt. He was given a cream for his arthritis however he states he wants the BenGay brand cream and this is not carried by the Hospital. The patient is asking for BenGay specifically. He states his breathing is good. He denies chest pain or shortness of breath. He states he states he is undergoing bronchoscopy this week. Objective - Vital Signs Vital signs: Vital Signs Temp 97.8 F 07/16/17 07:00 Pulse 79 07/16/17 08:00 Resp 14 07/16/17 08:00 BP 110/60 07/16/17 07:00 Pulse Ox 95 07/16/17 07:00 Intake & Output 07/15/17 07/16/17 07/16/17 18:59 06:59 18:59 Intake Total 440 480 Balance 440 480 Weight 101.605 kg Intake: Oral 440 480 Other: Voiding Method Toilet Toilet Toilet # Voids 2 1 1 - Exam Gen.: Patient is alert and oriented 3, no acute distress Cardiovascular: Regular rate and rhythm, S1/S2 Lungs: Diminished breath sounds bilaterally Abdomen: Soft nontender nondistended positive bowel sounds Extremities: No edema - Labs CBC & Chem 7: 07/13/17 08:58 07/13/17 08:58 Labs: Abnormal Lab Results - Last 24 Hours (Table) 07/15/17 07/15/17 07/16/17 Range/Units 17:34 20:34 07:01 POC Glucose (mg/dL) 229 H 237 H 283 H (75-99) mg/dL 07/16/17 Range/Units 11:17 POC Glucose (mg/dL) 292 H (75-99) mg/dL Assessment and Plan Assessment: Multiple bilateral pulmonary cavitary lesions, septic emboli versus metastatic disease versus fungal Mediastinal lymphadenopathy Squamous cell skin cancer Moderate protein calorie malnutrition History of COPD Diastolic congestive heart failure Anemia - possible GIB Adult failure to thrive Obesity Hyperglycemia, DM2 Hyponatremia ONI on CKD 3 Hypertension History of SHAKIR Atrial flutter O2 to maintain saturation greater than or equal to 90% CPAP nightly Plan for bronchoscopy this week Pulmicort Solumedrol taper EGD and colonoscopy tomorrow Duo nebs Sputum culture and cytology Repeat labs in a.m. GI and DVT prophylaxis: Protonix, SCDs Incentive spirometry and pulmonary hygiene Covering for Dr. Polk
[2017-07-16 15:18] LABS: Glucose,Whole Blood 393 mg/dL (75-99)
[2017-07-16 17:25] LABS: Glucose,Whole Blood 423 mg/dL (75-99)
[2017-07-16 19:59] LABS: Glucose,Whole Blood 403 mg/dL (75-99)
[2017-07-16] MEDS: BISMUTH SUBSALICYLATE 4,192 MG/240 ML BOTTLE PO PRN ×2 (20:05→23:09)
[2017-07-16] MEDS: PANTOPRAZOLE 40 MG TABLET PO SCH (20:09)
[2017-07-16] MEDS: TAMSULOSIN 0.4 MG CAP.ER.24H PO SCH (20:09)
[2017-07-16] MEDS: METOPROLOL TARTRATE 25 MG TAB PO SCH (20:09)
[2017-07-16] MEDS: POLYETHYLENE GLYCOL 3350 17 GM POWD.PACK PO SCH (20:09)
[2017-07-16 21:32] LABS: Glucose,Whole Blood 389 mg/dL (75-99)
[2017-07-17] MEDS: HYDROcodone/APAP 10-325MG 1 EACH TAB PO SCH ×7 (00:01→23:39)
[2017-07-17] MEDS: methylPREDNISolone SOD SUCCI 40 MG/ML 1 ML VIAL IV SCH ×4 (00:01→23:37)
[2017-07-17] MEDS: LEVOTHYROXINE 100 MCG TAB PO SCH (06:16)
[2017-07-17 07:20] LABS: Glucose,Whole Blood 309 mg/dL (75-99)
[2017-07-17 08:09] LABS: Albumin 2.9 g/dL (3.5-5.0); Calcium 9.4 mg/dL (8.4-10.2); Potassium 4.2 mmol/L (3.5-5.1); Total Bilirubin 0.3 mg/dL (0.2-1.3); Total Protein 6.1 g/dL (6.3-8.2)
[2017-07-17] MEDS: IPRATROPIUM-ALBUTEROL 3 ML NEB INHALATION SCH ×3 (08:23→20:27)
[2017-07-17] MEDS: BUDESONIDE 0.5 MG/2 ML NEBU INHALATION SCH ×2 (08:23→20:27)
--- NOTE | 2017-07-17 08:32 | CDI ---
Last Revision, June 2017 Documentation Clarification Form Date: 07/13/2017 11:41:00 AM From: [employer] Smart RN Admit Date: 07/11/2017 4:27:00 PM Patient Name: Ryne Marte Visit Number: [id number] ATTENTION: The Clinical Documentation Specialists (CDI) and [facility] Coding Staff appreciate your assistance in clarifying documentation. Please respond to the clarification below the line at the bottom and electronically sign. The CDI & [facility] Coding staff will review the response and follow-up if needed. Please note: Queries are made part of the Legal Health Record. If you have any questions, please contact the author of this message via ITS. Dr. Lazaro Bailey, (second request please anwser below line), A diagnosis of anemia lacks specificity to accurately reflect your patients severity of condition and clarification is needed. History/Risk Factors: DM, COPD, CHF, dementia, skin cancer with radiation Clinical indicators: Hemoglobin: on admission 6.3 Hematocrit: on admission 19.5 Treatment: units of PRBCs transfused, In order to capture the severity of condition, please clarify the type of anemia and etiology if known: Acute blood loss anemia Acute on chronic blood loss anemia Chronic blood loss anemia Hemolytic anemia Drug induced anemia Anemia due to malignancy Unable to determine Other, please specify Please continue to document in your progress notes and discharge summary in order to capture severity of illness and risk of mortality. Include clinical findings that support your diagnosis. MTDD
[2017-07-17] MEDS: INSULIN ASPART 100 UNIT/ML 1 ML 10 ML VIAL SQ SCH ×4 (08:36→20:10)
[2017-07-17] MEDS: FUROSEMIDE 20 MG TAB PO SCH (08:37)
[2017-07-17] MEDS: GABAPENTIN 300 MG CAP PO SCH ×2 (08:39→20:06)
[2017-07-17] MEDS: MAG HYDROX/AL HYDROX/SIMETH 30 ML, LIDOCAINE VISCOUS 30 ML, diphenhydrAMINE ELIXIR 75 M... PO SCH ×12 (08:41→22:24)
[2017-07-17] MEDS: LISINOPRIL 5 MG TAB PO SCH (08:41)
[2017-07-17] MEDS: POTASSIUM CHLORIDE ER 20 MEQ TAB.ER PO SCH (08:41)
[2017-07-17 08:48] LABS: HCT 31.6 % (39.0-53.0); HGB 10.2 gm/dL (13.0-17.5); MCH 30.4 pg (25.0-35.0); MCHC 32.2 g/dL (31.0-37.0); MCV 94.4 fL (80.0-100.0); Platelet Count 212 k/uL (150-450); RBC 3.35 m/uL (4.30-5.90); RDW 13.2 % (11.5-15.5); WBC 10.1 k/uL (3.8-10.6)
--- NOTE | 2017-07-17 09:43 | PN ---
PROGRESS NOTE SUBJECTIVE: This is an 87-year-old white male with GI bleeding, pulmonary nodules, severe anemia, dementia, squamous cell skin cancer of scalp, will have a bronchoscopy done tomorrow and biopsies for possible lung cancer. Awaiting new car get ready mechanic to do bronchoscopy in the morning. Cardiovascular S1, S2. Lungs scattered wheeze. GI is soft. Diffuse tenderness. Hematology negative Homans. Psych: Fair mood and affect. Plan possible discharge home or to rehab center once this pulmonary cancer is figured out on bronchoscopy tomorrow. The patient had a fight with the nurses last night and today about arthritis cream. He can not get [id number] arthritis cream. Arthritis cream is pending. I ordered some after talking with pharmacy. IV Solu- Medrol will be given for significant arthritis. Cardiovascular S1-S2. Lungs transmitted upper sounds. Hematological negative Homans. Psych fair mood and affect. ASSESSMENT: 1. Probable lung cancer. 2. Squamous cell cancer of the skin. 3. Pulmonary nodules, atypical. 4. Gastrointestinal bleeding. 5. Severe anemia. 6. Dementia. 7. Antisocial behavior. Continue with arthritis cream of the hands. Pulmonology. Bronchoscopy will be done tomorrow. Possible discharge home to rehab center next 24-48 hours pending bronchoscopy results. Recommendations from multiple oncology and Radiation Oncology. MMODL / IJN: [id number] /
[2017-07-17 12:28] LABS: Glucose,Whole Blood 250 mg/dL (75-99)
[2017-07-17] MEDS ORDERED: fentaNYL (PF) 50 MCG/ML 2 ML AMP ONE (13:35)
[2017-07-17] MEDS ORDERED: MIDAZOLAM 2 MG/2 ML VIAL ONE (13:35)
[2017-07-17] MEDS ORDERED: LIDOCAINE 1% INJ 10MG/ML (20 ML MDV) ONE (13:35)
[2017-07-17] MEDS ORDERED: GLYCOPYRROLATE 0.2 MG/ML 2 ML VIAL ONE (13:35)
[2017-07-17] MEDS ORDERED: KETAMINE 10 MG/ML 20 ML VIAL ONE (13:35)
[2017-07-17] MEDS ORDERED: PROPOFOL 10 MG/ML 20 ML VIAL IV ONE (13:35)
[2017-07-17] MEDS ORDERED: IV FLUID CONTINUATION 1,000 ML IV ONE ×2 (13:37)
--- NOTE | 2017-07-17 13:52 | PN ---
PROGRESS NOTE SUBJECTIVE: An 87-year-old white female who is undergoing a bronchoscopy with multiple biopsies today for possible lung cancer per Hematology/Oncology recommendation. Discussed with Pulmonary doctor who will be doing the test today. Patient is requesting an increase of his Lasix dose. He is on 20 b.i.d. p.o. He has had severe leg swelling. His breathing is improved with oral oxygen. His arthritis is better with Aspercreme, which his family brought in from home. Vital signs are reviewed. CARDIOVASCULAR: S1, S2. Lungs show scattered rhonchi and rales. HEMATOLOGIC: 2 to 3+ pedal edema. GI is soft. NEUROLOGIC: Alert and oriented x3. ASSESSMENT: 1. Diastolic congestive heart failure. 2. Multiple pulmonary nodules, rule out lung cancer, squamous cell cancer of the head. 3. Atherosclerotic heart disease. 4. Hypertension. 5. Diabetes mellitus. 6. Neuropathy. Psych med was discontinued as patient did not want to take this. Aspercreme is being used for arthritis. Start on Accu-Chek protocol for sugars. Lasix will be increased to 40 b.i.d. Continue with current updraft treatments and regular medications. MMODL / IJN: [id number] /
[2017-07-17] MEDS ORDERED: LIDOCAINE 2% INJ 20 MG/ML INTRATRACH ONE ×2 (13:57→14:03)
[2017-07-17] MEDS ORDERED: LIDOCAINE 2%-EPI 1:100,000 20 ML VIAL SQ ONE (14:08)
--- NOTE | 2017-07-17 14:46 | XR ---
EXAMINATION TYPE: XR chest 1V DATE OF EXAM: 07/17/2017 COMPARISON: 07/13/2017 HISTORY: Post bronchoscopy on the right. TECHNIQUE: Single frontal view of the chest is obtained. FINDINGS: Right midlung subsegmental atelectasis is seen surrounding the right midlung cavitary nodu le elevating the right minor fissure. Mediastinum appears enlarged in comparison the prior relating t o the known adenopathy. Cardiac silhouette is stable. Dual lead left-sided cardiac device is again no mariana. The other smaller bilateral cavitary nodules are better seen on CT. No postprocedural pneumothor ax. Osseous structures appear intact. There is improved aeration of the right lung base in comparison the prior. IMPRESSION: No postprocedural pneumothorax status post right bronchoscopy. Right midlung cavitary le ada appears similar to the prior with improved aeration at the right lung base. Smaller right latera l cavitary nodules are better visualized on CT.
--- NOTE | 2017-07-17 14:50 | FL ---
EXAMINATION TYPE: FL bronchoscopy DATE OF EXAM: 07/17/2017 COMPARISON: 07/13/2017 HISTORY: Bronchoscopy for multiple cavitary lesions. TECHNIQUE: Fluoroscopy. FINDINGS/IMPRESSION: Fluoroscopic guidance was provided during procedure performed by Dr. Polk. A to nancy of 15 seconds of fluoroscopic time was utilized during the procedure and 1 spot images was acquir ed demonstrating partial visualization of the bronchoscope.
--- NOTE | 2017-07-17 16:05 | P.PN ---
Subjective Progress Note Date: 07/17/17 Principal diagnosis: Bilateral multiple nodules including cavitary lesions, large mediastinal lymphadenopathy, history of a squamous cell cancer of the skin 07/17/2017, patient seen and examined during the rounds patient has been brief and consult about bronchoscopy and lung biopsy on questions answered clinically overall doing well denies any hemoptysis denies any chest pain but get short of breath on minimal activity and exertion 07/15/2017, patient seen and evaluated examined during the rounds clinically doing better I have reviewed the computed tomography scan finding with the patient at length patient would like to proceed with bronchoscopy and biopsy as he is more interested in more definitive intervention, he also expresses his wishes to be a full code 07/14/17- patient seen examined and evaluated on rounds. patient is going for EGD and Colonoscopy today. Upon examination the patient is resting in bedside chair on 2 L of supplemental oxygen via nasal cannula. Continues to have shortness of breath with exertion and activity. He has had a productive cough with white sputum that has been slightly blood tinged, however very scant. Patient is afebrile no further complaints. All labs and reports have been reviewed. CT reviewed by Dr. Polk, and does show enlarged cavitary lesions. 07/13/17- This is an 87-year-old male patient well-known to our services be seen and examined and evaluated today on rounds. The patient does have a significant past medical history for squamous cell carcinoma of the scalp and was receiving radiation treatments in the outpatient setting with Dr. Schultz. The patient came into the emergency room via EMS for evaluation and workup of abdominal pain the patient had not have a bowel movement in over 5 days and was experiencing abdominal cramping and nausea. The patient states he is also not eating well and has a poor appetite. The patient has been very fatigued at home and has been unable to care for himself lately his caregiver was also concerned that the patient is unsafe to live at home. Upon workup in the emergency room the patient did undergo an acute abdomen series of x-ray which did show a right midlung cavitary lesion appearing thick walled which is likely neoplastic with his history of pulmonary nodules. Other etiologies could be cavitary pneumonia or septic emboli. These findings were compared to a Chest CT on 12/21/16. Patient was also noted to have lab work that revealed acute anemia with hemoglobin of 6.3 his digital rectal exam was negative for stool in rectal vault as well as negative for stool guaiac. Patient was given 2 units of packed red blood cells. Was also noted that the patient had a albumin of 2.8. The patient was admitted for further workup, and treatment as well as with a GI consult for possible GI Bleed. Patient is scheduled for EGD and colonoscopy tomorrow. Of note the patient did have a bronchoscopy with Dr. Polk on 2016 which was negative except for Elle. Upon examination the patient is resting in bedside chair on 2 L of supplemental oxygen via nasal cannula. Continues to have shortness of breath with exertion and activity. He has had a productive cough with white sputum that has been slightly blood tinged. Patient also noted to have bloody bowel movement yesterday. Patient is afebrile no further complaints. All labs and reports have been reviewed. Objective - Vital Signs Vital signs: Vital Signs Temp 97.8 F 07/17/17 07:00 Pulse 74 07/17/17 13:07 Resp 16 07/17/17 07:00 BP 101/59 07/17/17 07:00 Pulse Ox 99 07/17/17 08:25 Intake & Output 07/16/17 07/17/17 07/17/17 18:59 06:59 18:59 Intake Total 1760 200 Balance 1760 200 Weight 101.605 kg 101.605 kg Intake: IV 200 Oral 1760 Other: Voiding Method Toilet Toilet Toilet # Voids 1 1 2 - Exam GENERAL EXAM: Alert, comfortable in no apparent distress. HEAD: Slight skull formation abnormality, patient states is from cancer of the scalp. EYES: Normal reaction of pupils, equal size. NOSE: Clear with pink turbinates. THROAT: No erythema or exudates. NECK: No masses, no JVD. CHEST: No chest wall deformity. LUNGS: Lungs noted to be diminished bilaterally with some faint expiratory wheezing noted throughout. Bases diminished CVS: S1 and S2 normal with no audible mumurs, regular rhythm. ABDOMEN: No hepatosplenomegaly, normal bowel sounds, no guarding or rigidity. EXTREMITIES: +1 LLE edema noted, pedal pulses palpable. SKIN: Scalp dry with scabs. CENTRAL NERVOUS SYSTEM: No focal deficits, tone is normal in all 4 extremities. - Labs CBC & Chem 7: 07/17/17 07:20 01/08/18 07:20 Labs: Abnormal Lab Results - Last 24 Hours (Table) 07/16/17 07/16/17 07/16/17 Range/Units 17:22 19:56 21:22 RBC (4.30-5.90) m/uL Hgb (13.0-17.5) gm/dL Hct (39.0-53.0) % Sodium (137-145) mmol/L Chloride (98-107) mmol/L BUN (9-20) mg/dL Creatinine (0.66-1.25) mg/dL Glucose (74-99) mg/dL POC Glucose (mg/dL) 423 H 403 H 389 H (75-99) mg/dL Total Protein (6.3-8.2) g/dL Albumin (3.5-5.0) g/dL 07/17/17 07/17/17 07/17/17 Range/Units 07:10 07:20 07:20 RBC 3.35 L (4.30-5.90) m/uL Hgb 10.2 L (13.0-17.5) gm/dL Hct 31.6 L (39.0-53.0) % Sodium 135 L (137-145) mmol/L Chloride 97 L (98-107) mmol/L BUN 24 H (9-20) mg/dL Creatinine 1.47 H (0.66-1.25) mg/dL Glucose 340 H (74-99) mg/dL POC Glucose (mg/dL) 309 H (75-99) mg/dL Total Protein 6.1 L (6.3-8.2) g/dL Albumin 2.9 L (3.5-5.0) g/dL 07/17/17 Range/Units 12:24 RBC (4.30-5.90) m/uL Hgb (13.0-17.5) gm/dL Hct (39.0-53.0) % Sodium (137-145) mmol/L Chloride (98-107) mmol/L BUN (9-20) mg/dL Creatinine (0.66-1.25) mg/dL Glucose (74-99) mg/dL POC Glucose (mg/dL) 250 H (75-99) mg/dL Total Protein (6.3-8.2) g/dL Albumin (3.5-5.0) g/dL Microbiology - Last 24 Hours (Table) 07/17/17 10:29 Gram Stain - Preliminary Head Wound Culture - Preliminary Assessment and Plan Assessment: Assessment Pulmonary cavitary lesion with history of multiple pulmonary nodules, these lesions are multiple and unusual bacterial or fungal infection cannot be excluded, metastatic cancer also cannot be excluded, noninfectious pulmonary in phlegm atrial prognosis is a possibility but less likely, more definitive intervention require a tissue biopsy, for that patient is being scheduled for bronchoscopy and transbronchial lung biopsy, side effect complication alternating risk has been explained to the patient at length Anemia, suspect blood loss r/t GI Bleed Squamous cell skin cancer Moderate protein calorie malnutrition with poor appetite and failure to thrive History of COPD History of diastolic congestive heart failure Plan Medications have been reviewed and will be continued as ordered. We will cont DuoNeb and budesonide via nebulizer. Continue with pulmonary hygiene, coughing and deep breathing exercises, and supportive care. Supplemental oxygen to maintain oxygen saturations of 92% or better. Continue nebulizer treatments. Patient is also being seen by GI services and will undergo an EGD and colonoscopy tomorrow. Patient could possibly undergo a bronchoscopy next week. We'll also obtain a sputum culture. Initiate and encourage incentive spirometer. GI and DVT prophylaxis. We will continue to monitor labs/results and adjust treatment as necessary. Patient is being scheduled for bronchoscopy and transbronchial lung biopsy under fluoroscopy for Monday late morning or early afternoon, as dictated above procedure alternative complication has been explained to the patient. Patient Understood them and would like to proceed Further recommendations pending. Time with Patient: Greater than 30
--- NOTE | 2017-07-17 16:09 | P.PCN ---
Date of Procedure: 07/17/17 Preoperative Diagnosis: Bilateral pneumonia, lung cancer, cavitary nodules Postoperative Diagnosis: Bilateral pneumonia, lung cancer, cavitary nodules Procedure(s) Performed: Bronchoscopy, transbronchial lung biopsy, right upper lobe lavage Anesthesia: local Surgeon: Que Polk Estimated Blood Loss (ml): 5 Condition: stable Disposition: floor Indications for Procedure: As above Operative Findings: As below Description of Procedure: Patient prepared and draped in a usual fashion for anesthesia anesthesia please effort to the anesthesia report. Procedure explained to the patient at length including alternative risks and complication. Fiberoptic bronchoscope was passed through the mouth as well as nasal passages were extremely narrow in size tip of the scope was passed into the laryngeal area awoken cords were normal structure and function tip of the scope was passed from the vocal cords into the trachea which was normal tip of the scope was has into the right upper lobe with observation of trifurcation followed by right middle lobe and right lower lobe subsequently tip was taken to the left side left upper lobe lingular lobe and left lower lobe along with subsegment were inspected. One of the subsegment of the right upper lobe noted to have a friable mucosa with mucosal irregularity it was easy to bleed BAL was performed from that area followed by multiple transbronchial lung biopsy obtained under fluoroscopy patient tolerated procedure well no complication noted
[2017-07-17 16:34] LABS: Hemoglobin A1C 7.8 % (4.0-6.0)
[2017-07-17] MEDS: FOLIC ACID 1 MG TAB PO SCH (16:34)
[2017-07-17] MEDS: FUROSEMIDE 40 MG TAB PO SCH (16:34)
[2017-07-17 17:19] LABS: Glucose,Whole Blood 386 mg/dL (75-99)
[2017-07-17 20:02] LABS: Glucose,Whole Blood 386 mg/dL (75-99)
[2017-07-17] MEDS: METOPROLOL TARTRATE 25 MG TAB PO SCH (20:06)
[2017-07-17] MEDS: TAMSULOSIN 0.4 MG CAP.ER.24H PO SCH (20:06)
[2017-07-17] MEDS: PANTOPRAZOLE 40 MG TABLET PO SCH (20:06)
[2017-07-17] MEDS: POLYETHYLENE GLYCOL 3350 17 GM POWD.PACK PO SCH (20:16)
[2017-07-18] MEDS: HYDROcodone/APAP 10-325MG 1 EACH TAB PO SCH ×6 (00:58→20:17)
[2017-07-18] MEDS: LEVOTHYROXINE 100 MCG TAB PO SCH (06:45)
[2017-07-18 06:50] LABS: Glucose,Whole Blood 320 mg/dL (75-99)
[2017-07-18] MEDS: LISINOPRIL 5 MG TAB PO SCH (07:45)
[2017-07-18] MEDS: POTASSIUM CHLORIDE ER 20 MEQ TAB.ER PO SCH ×2 (07:46→20:25)
[2017-07-18] MEDS: methylPREDNISolone SOD SUCCI 40 MG/ML 1 ML VIAL IV SCH ×3 (07:47→23:45)
[2017-07-18] MEDS: INSULIN ASPART 100 UNIT/ML 1 ML 10 ML VIAL SQ SCH ×4 (07:49→20:20)
[2017-07-18] MEDS: FUROSEMIDE 40 MG TAB PO SCH ×2 (07:51→16:28)
[2017-07-18] MEDS: MAG HYDROX/AL HYDROX/SIMETH 30 ML, LIDOCAINE VISCOUS 30 ML, diphenhydrAMINE ELIXIR 75 M... PO SCH ×12 (07:51→23:32)
[2017-07-18] MEDS: GABAPENTIN 300 MG CAP PO SCH ×2 (07:51→20:17)
[2017-07-18 08:12] LABS: Basophils % (A) 0 %; Eosinophils # (A) 0.2 k/uL (0-0.7); Eosinophils % (A) 2 %; HCT 31.8 % (39.0-53.0); HGB 10.4 gm/dL (13.0-17.5); Lymphocytes # (A) 1.8 k/uL (1.0-4.8); Lymphocytes % (A) 17 %; MCHC 32.7 g/dL (31.0-37.0); MCV 94.6 fL (80.0-100.0); Mean Platelet Volume 7.7; Monocytes # (A) 0.6 k/uL (0-1.0); Monocytes % (A) 6 %; Neutrophils # (A) 8.2 k/uL (1.3-7.7); Neutrophils % (A) 75 %; Platelet Count 207 k/uL (150-450); RBC 3.37 m/uL (4.30-5.90); RDW 14.9 % (11.5-15.5); WBC 10.9 k/uL (3.8-10.6)
[2017-07-18] MEDS: BUDESONIDE 0.5 MG/2 ML NEBU INHALATION SCH ×2 (08:31→21:16)
[2017-07-18] MEDS: IPRATROPIUM-ALBUTEROL 3 ML NEB INHALATION SCH ×3 (08:31→21:16)
[2017-07-18 08:37] LABS: Albumin 3.2 g/dL (3.5-5.0); Calcium 9.2 mg/dL (8.4-10.2); Potassium 4.5 mmol/L (3.5-5.1); Total Bilirubin 0.5 mg/dL (0.2-1.3); Total Protein 6.4 g/dL (6.3-8.2)
[2017-07-18 11:40] LABS: Glucose,Whole Blood 260 mg/dL (75-99)
[2017-07-18] MEDS: FOLIC ACID 1 MG TAB PO SCH (12:32)
--- NOTE | 2017-07-18 14:41 | DS ---
DISCHARGE SUMMARY DISCHARGE MEDICATIONS: 1. Prilosec 20 mg daily. 2. Ecotrin 81 mg daily. 3. Folic acid 1 mg daily. 4. Lisinopril 5 mg daily. 5. [place]-3 fatty acids daily. 6. Potassium chloride 20 mEq daily. 7. Metformin 1000 q.a.m. 8. Flomax 0.4 q.h.s. 9. Magnesium oxide 400 mg q.h.s. 10.Fluticasone nasal spray 2 sprays each nostril daily. 11.Lopressor 25 mg q.h.s. 12.Neurontin 300 mg b.i.d. 13.Lantus 30 units subcu q.a.m. 14.Ferrous sulfate 325 mg daily. 15.Claritin 10 mg daily. 16.Levothyroxine 100 mcg daily. 17.Lasix 80 mg p.o. b.i.d. 18.Singular 10 mg daily. 19.Vitamin B12 five hundred mcg daily. 20.Accu-Chek protocol a.c. and bedtime with regular insulin. 21.Coenzyme Q-10 two hundred mg daily. 22.Aspercreme use p.r.n. all day long per his need. Aspercreme to the bedside. 23.Artificial Tears 1 drop both eyes t.i.d. for dry eyes. 24.[place] 10/325 one q.4 hours p.r.n. 25.DuoNeb updraft treatments q.i.d. 26.Pulmicort nebulizers 0.5 mg b.i.d. 27.Folic acid 1 mg daily. 28.Flomax 0.4 mg daily. DISCHARGE DIAGNOSES: 1. Squamous cell carcinoma of the scalp. 2. Multiple pulmonary nodules in the lungs of unclear etiology. 3. Chronic obstructive pulmonary disease. 4. Diastolic congestive heart failure. 5. Severe osteoarthritis. 6. Degenerative disc disease. 7. Hypertension. 8. Benign prostatic hypertrophy. 9. Mild dementia. 10.Significant osteoarthritis of the extremities. 11.Gastroesophageal reflux disease. 12.Hypertension. 13.Coronary artery disease. 14.Acute on chronic anemia. 15.Hyponatremia. 16.Chronic renal disease stage IIIA. 17.Insulin-dependent diabetes mellitus. HOSPITAL COURSE: An 87-year-old white male was admitted to the hospital with dizziness, shortness of breath, was found with bronchitis, COPD exacerbation, multiple pulmonary nodules for which bronchoscopy was performed. Oncology saw the patient. Oncology will follow up with the patient as an outpatient for these pulmonary nodules, status post bronchoscopy. He will continue with updraft treatments and treatment per Pulmonary and Oncology recommendations. Follow up with Dr. Lazaro Bailey at [facility]. Chronic renal disease, heart disease, COPD will be managed and osteoarthritis with recommendations as above. Prognosis is guarded. MMODL / IJN: [id number] /
--- NOTE | 2017-07-18 16:49 | P.PN ---
Subjective Progress Note Date: 07/18/17 Principal diagnosis: Bilateral multiple nodules including cavitary lesions, large mediastinal lymphadenopathy, history of a squamous cell cancer of the skin 07/18/2017, patient seen eval reexamined during the rounds he is awake and alert breathing comfortably have mild cough or sputum production as his symptoms resolved respiratory status is much improved now findings on the bronchoscopy has been reviewed with the patient however the biopsy results as well as cytology remains pending, the findings on the Gram stain and culture has been reviewed few gram-positive cocci are seen on the BAL however gave B and AMY has been negative patient is currently on antibiotics 07/17/2017, patient seen and examined during the rounds patient has been brief and consult about bronchoscopy and lung biopsy on questions answered clinically overall doing well denies any hemoptysis denies any chest pain but get short of breath on minimal activity and exertion 07/15/2017, patient seen and evaluated examined during the rounds clinically doing better I have reviewed the computed tomography scan finding with the patient at length patient would like to proceed with bronchoscopy and biopsy as he is more interested in more definitive intervention, he also expresses his wishes to be a full code 07/14/17- patient seen examined and evaluated on rounds. patient is going for EGD and Colonoscopy today. Upon examination the patient is resting in bedside chair on 2 L of supplemental oxygen via nasal cannula. Continues to have shortness of breath with exertion and activity. He has had a productive cough with white sputum that has been slightly blood tinged, however very scant. Patient is afebrile no further complaints. All labs and reports have been reviewed. CT reviewed by Dr. Polk, and does show enlarged cavitary lesions. 07/13/17- This is an 87-year-old male patient well-known to our services be seen and examined and evaluated today on rounds. The patient does have a significant past medical history for squamous cell carcinoma of the scalp and was receiving radiation treatments in the outpatient setting with Dr. Schultz. The patient came into the emergency room via EMS for evaluation and workup of abdominal pain the patient had not have a bowel movement in over 5 days and was experiencing abdominal cramping and nausea. The patient states he is also not eating well and has a poor appetite. The patient has been very fatigued at home and has been unable to care for himself lately his caregiver was also concerned that the patient is unsafe to live at home. Upon workup in the emergency room the patient did undergo an acute abdomen series of x-ray which did show a right midlung cavitary lesion appearing thick walled which is likely neoplastic with his history of pulmonary nodules. Other etiologies could be cavitary pneumonia or septic emboli. These findings were compared to a Chest CT on 12/21/16. Patient was also noted to have lab work that revealed acute anemia with hemoglobin of 6.3 his digital rectal exam was negative for stool in rectal vault as well as negative for stool guaiac. Patient was given 2 units of packed red blood cells. Was also noted that the patient had a albumin of 2.8. The patient was admitted for further workup, and treatment as well as with a GI consult for possible GI Bleed. Patient is scheduled for EGD and colonoscopy tomorrow. Of note the patient did have a bronchoscopy with Dr. Polk on 2016 which was negative except for Elle. Upon examination the patient is resting in bedside chair on 2 L of supplemental oxygen via nasal cannula. Continues to have shortness of breath with exertion and activity. He has had a productive cough with white sputum that has been slightly blood tinged. Patient also noted to have bloody bowel movement yesterday. Patient is afebrile no further complaints. All labs and reports have been reviewed. Objective - Vital Signs Vital signs: Vital Signs Temp 97.9 F 07/18/17 15:00 Pulse 85 07/18/17 15:00 Resp 18 07/18/17 15:00 BP 104/57 07/18/17 15:00 Pulse Ox 95 07/18/17 15:00 Intake & Output 07/17/17 07/18/17 07/18/17 18:59 06:59 18:59 Intake Total 200 Balance 200 Weight 101.605 kg Intake: IV 200 Other: Voiding Method Toilet Toilet Toilet # Voids 2 2 2 - Exam GENERAL EXAM: Alert, comfortable in no apparent distress. HEAD: Slight skull formation abnormality, patient states is from cancer of the scalp. EYES: Normal reaction of pupils, equal size. NOSE: Clear with pink turbinates. THROAT: No erythema or exudates. NECK: No masses, no JVD. CHEST: No chest wall deformity. LUNGS: Lungs noted to be diminished bilaterally with some faint expiratory wheezing noted throughout. Bases diminished CVS: S1 and S2 normal with no audible mumurs, regular rhythm. ABDOMEN: No hepatosplenomegaly, normal bowel sounds, no guarding or rigidity. EXTREMITIES: +1 LLE edema noted, pedal pulses palpable. SKIN: Scalp dry with scabs. CENTRAL NERVOUS SYSTEM: No focal deficits, tone is normal in all 4 extremities. - Labs CBC & Chem 7: 07/18/17 07:44 07/18/17 07:44 Labs: Abnormal Lab Results - Last 24 Hours (Table) 07/17/17 07/17/17 07/17/17 Range/Units 07:20 17:17 19:54 WBC (3.8-10.6) k/uL RBC (4.30-5.90) m/uL Hgb (13.0-17.5) gm/dL Hct (39.0-53.0) % Neutrophils # (1.3-7.7) k/uL Sodium (137-145) mmol/L Chloride (98-107) mmol/L BUN (9-20) mg/dL Creatinine (0.66-1.25) mg/dL Glucose (74-99) mg/dL POC Glucose (mg/dL) 386 H 386 H (75-99) mg/dL Hemoglobin A1c 7.8 H (4.0-6.0) % Albumin (3.5-5.0) g/dL 07/18/17 07/18/17 07/18/17 Range/Units 06:49 07:44 07:44 WBC 10.9 H (3.8-10.6) k/uL RBC 3.37 L (4.30-5.90) m/uL Hgb 10.4 L (13.0-17.5) gm/dL Hct 31.8 L (39.0-53.0) % Neutrophils # 8.2 H (1.3-7.7) k/uL Sodium 134 L (137-145) mmol/L Chloride 95 L (98-107) mmol/L BUN 22 H (9-20) mg/dL Creatinine 1.48 H (0.66-1.25) mg/dL Glucose 322 H (74-99) mg/dL POC Glucose (mg/dL) 320 H (75-99) mg/dL Hemoglobin A1c (4.0-6.0) % Albumin 3.2 L (3.5-5.0) g/dL 07/18/17 Range/Units 11:38 WBC (3.8-10.6) k/uL RBC (4.30-5.90) m/uL Hgb (13.0-17.5) gm/dL Hct (39.0-53.0) % Neutrophils # (1.3-7.7) k/uL Sodium (137-145) mmol/L Chloride (98-107) mmol/L BUN (9-20) mg/dL Creatinine (0.66-1.25) mg/dL Glucose (74-99) mg/dL POC Glucose (mg/dL) 260 H (75-99) mg/dL Hemoglobin A1c (4.0-6.0) % Albumin (3.5-5.0) g/dL Microbiology - Last 24 Hours (Table) 07/17/17 14:05 Acid Fast Bacilli Smear - Final Bronchial Washings - Right Acid Fast Bacilli Culture - Preliminary 07/17/17 14:05 Gram Stain - Preliminary Bronchial Washings - Right Bronchial Washings Culture - Preliminary 07/17/17 14:05 Fungal Culture - Preliminary Bronchial Washings - Right 07/17/17 10:29 Gram Stain - Preliminary Head Wound Culture - Preliminary Assessment and Plan Assessment: Assessment Pulmonary cavitary lesion with history of multiple pulmonary nodules, these lesions are multiple and unusual bacterial or fungal infection cannot be excluded, metastatic cancer also cannot be excluded, noninfectious pulmonary in phlegm atrial prognosis is a possibility but less likely, more definitive intervention require a tissue biopsy, for that patient is being scheduled for bronchoscopy and transbronchial lung biopsy, side effect complication alternating risk has been explained to the patient at length Anemia, suspect blood loss r/t GI Bleed Squamous cell skin cancer Moderate protein calorie malnutrition with poor appetite and failure to thrive History of COPD History of diastolic congestive heart failure Plan: Plan In case patient discharged to [facility] will recommend follow-up in outpatient setting Medications have been reviewed and will be continued as ordered. We will cont DuoNeb and budesonide via nebulizer. Continue with pulmonary hygiene , coughing and deep breathing exercises, and supportive care. Supplemental oxygen to maintain oxygen saturations of 92% or better. Continue nebulizer treatments. Patient is also being seen by GI services and underwent an EGD and colonoscopy, Patient encourage incentive spirometer. GI and DVT prophylaxis. We will continue to monitor labs/results and adjust treatment as necessary. Patient is being scheduled for bronchoscopy and transbronchial lung biopsy under fluoroscopy for Monday late morning or early afternoon, as dictated above procedure alternative complication has been explained to the patient. Patient Understood them and would like to proceed Further recommendations pendin Time with Patient: Greater than 30
[2017-07-18 17:03] LABS: Glucose,Whole Blood 380 mg/dL (75-99)
[2017-07-18 19:51] LABS: Glucose,Whole Blood 313 mg/dL (75-99)
[2017-07-18] MEDS: TAMSULOSIN 0.4 MG CAP.ER.24H PO SCH (20:17)
[2017-07-18] MEDS: METOPROLOL TARTRATE 25 MG TAB PO SCH (20:18)
[2017-07-18] MEDS: PANTOPRAZOLE 40 MG TABLET PO SCH (20:18)
[2017-07-18] MEDS: POLYETHYLENE GLYCOL 3350 17 GM POWD.PACK PO SCH (20:20)
[2017-07-18] MEDS: FERROUS SULFATE 325 MG TAB PO SCH (20:21)
[2017-07-19] MEDS: HYDROcodone/APAP 10-325MG 1 EACH TAB PO SCH ×6 (00:13→20:44)
[2017-07-19] MEDS: LEVOTHYROXINE 100 MCG TAB PO SCH (07:06)
[2017-07-19 07:11] LABS: Glucose,Whole Blood 239 mg/dL (75-99)
--- NOTE | 2017-07-19 07:12 | PN ---
PROGRESS NOTE SUBJECTIVE: An 87-year-old white male with significant pulmonary nodules. Awaiting pathology report from bronchoscopy. He will be transferred to retirement tomorrow and follow up with Oncology in his office. Not sure what is going on in his lungs yet versus infection versus possible low-grade undiagnosed cancer. CARDIOVASCULAR: S1, S2. LUNGS: Transmitted upper airway sounds. GI: Soft, distended obesity. MUSCULOSKELETAL: Tenderness to palpation cervical and lumbar spine. ASSESSMENT: 1. Severe anemia. 2. Abnormal pulmonary nodules, possible low-grade squamous cell cancer will need to be ruled out. 3. Squamous cell cancer of the scalp. 4. Diastolic congestive heart failure. 5. Chronic obstructive pulmonary disease, oxygen-dependent chronic obstructive pulmonary disease. Continue current medications. 6. Insulin-dependent diabetes mellitus. He will be restarted on his Levemir 30 units a day and metformin 500 daily. His sugars have been running high in the mid 200s to 300s. Possible discharge to the retirement tomorrow. MMODL / IJN: [id number] /
[2017-07-19] MEDS: BUDESONIDE 0.5 MG/2 ML NEBU INHALATION SCH ×2 (07:32→21:06)
[2017-07-19] MEDS: IPRATROPIUM-ALBUTEROL 3 ML NEB INHALATION SCH ×3 (07:32→21:06)
[2017-07-19] MEDS: INSULIN ASPART 100 UNIT/ML 1 ML 10 ML VIAL SQ SCH ×4 (07:59→20:36)
[2017-07-19] MEDS: GABAPENTIN 300 MG CAP PO SCH ×2 (08:00→20:35)
[2017-07-19] MEDS: LISINOPRIL 5 MG TAB PO SCH (08:00)
[2017-07-19] MEDS: methylPREDNISolone SOD SUCCI 40 MG/ML 1 ML VIAL IV SCH ×2 (08:00→16:46)
[2017-07-19] MEDS: FUROSEMIDE 80 MG TAB PO SCH ×2 (08:00→16:49)
[2017-07-19] MEDS: POTASSIUM CHLORIDE ER 20 MEQ TAB.ER PO SCH (08:01)
[2017-07-19] MEDS: ASPIRIN 81 MG PO SCH (08:01)
[2017-07-19] MEDS: metFORMIN 500 MG TAB PO SCH (08:01)
[2017-07-19] MEDS: MAG HYDROX/AL HYDROX/SIMETH 30 ML, LIDOCAINE VISCOUS 30 ML, diphenhydrAMINE ELIXIR 75 M... PO SCH ×12 (08:02→20:36)
[2017-07-19] MEDS: INSULIN DETEMIR 100 UNIT/ML 10 ML VIAL SQ SCH (08:02)
--- NOTE | 2017-07-19 10:43 | CDI ---
Last Revision, June 2017 Documentation Clarification Form Date: 07/13/2017 11:41:00 AM From: Crystal Smart Admit Date: 07/11/2017 4:27:00 PM Patient Name: Ryne Marte Visit Number: [id number] ATTENTION: The Clinical Documentation Specialists (CDI) and [facility] Coding Staff appreciate your assistance in clarifying documentation. Please respond to the clarification below the line at the bottom and electronically sign. The CDI & [facility] Coding staff will review the response and follow-up if needed. Please note: Queries are made part of the Legal Health Record. If you have any questions, please contact the author of this message via ITS. Dr. Lazaro Bailey, A diagnosis of anemia lacks specificity to accurately reflect your patients severity of condition and clarification is needed. History/Risk Factors: DM, COPD, CHF, dementia, skin cancer with radiation Clinical indicators: Hemoglobin: on admission 6.3 Hematocrit: on admission 19.5 Treatment: units of PRBCs transfused, In order to capture the severity of condition, please clarify the type of anemia and etiology if known: Acute blood loss anemia Acute on chronic blood loss anemia Chronic blood loss anemia Hemolytic anemia Drug induced anemia Anemia due to malignancy Unable to determine Other, please specify Please continue to document in your progress notes and discharge summary in order to capture severity of illness and risk of mortality. Include clinical findings that support your diagnosis. MTDD
[2017-07-19 11:45] LABS: Glucose,Whole Blood 299 mg/dL (75-99)
[2017-07-19] MEDS: FOLIC ACID 1 MG TAB PO SCH (12:41)
--- NOTE | 2017-07-19 12:48 | DS ---
DISCHARGE SUMMARY ADDENDUM TO DISCHARGE SUMMARY Please place: Acute blood-loss anemia as well in the diagnosis. Home medications: Make sure he is on his Levemir 30 units at night, metformin 1 gram b.i.d. MMFRANCHESCAL / DELISAN: [id number] /
[2017-07-19 16:57] LABS: Glucose,Whole Blood 303 mg/dL (75-99)
--- NOTE | 2017-07-19 17:01 | P.PN ---
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 07/18/2017, patient seen eval reexamined during the rounds he is awake and alert breathing comfortably have mild cough or sputum production as his symptoms resolved respiratory status is much improved now findings on the bronchoscopy has been reviewed with the patient however the biopsy results as well as cytology remains pending, the findings on the Gram stain and culture has been reviewed few gram-positive cocci are seen on the BAL however gave B and AMY has been negative patient is currently on antibiotics 07/17/2017, patient seen and examined during the rounds patient has been brief and consult about bronchoscopy and lung biopsy on questions answered clinically overall doing well denies any hemoptysis denies any chest pain but get short of breath on minimal activity and exertion 07/15/2017, patient seen and evaluated examined during the rounds clinically doing better I have reviewed the computed tomography scan finding with the patient at length patient would like to proceed with bronchoscopy and biopsy as he is more interested in more definitive intervention, he also expresses his wishes to be a full code 07/14/17- patient seen examined and evaluated on rounds. patient is going for EGD and Colonoscopy today. Upon examination the patient is resting in bedside chair on 2 L of supplemental oxygen via nasal cannula. Continues to have shortness of breath with exertion and activity. He has had a productive cough with white sputum that has been slightly blood tinged, however very scant. Patient is afebrile no further complaints. All labs and reports have been reviewed. CT reviewed by Dr. Polk, and does show enlarged cavitary lesions. 07/13/17- This is an 87-year-old male patient well-known to our services be seen and examined and evaluated today on rounds. The patient does have a significant past medical history for squamous cell carcinoma of the scalp and was receiving radiation treatments in the outpatient setting with Dr. Schultz. The patient came into the emergency room via EMS for evaluation and workup of abdominal pain the patient had not have a bowel movement in over 5 days and was experiencing abdominal cramping and nausea. The patient states he is also not eating well and has a poor appetite. The patient has been very fatigued at home and has been unable to care for himself lately his caregiver was also concerned that the patient is unsafe to live at home. Upon workup in the emergency room the patient did undergo an acute abdomen series of x-ray which did show a right midlung cavitary lesion appearing thick walled which is likely neoplastic with his history of pulmonary nodules. Other etiologies could be cavitary pneumonia or septic emboli. These findings were compared to a Chest CT on 12/21/16. Patient was also noted to have lab work that revealed acute anemia with hemoglobin of 6.3 his digital rectal exam was negative for stool in rectal vault as well as negative for stool guaiac. Patient was given 2 units of packed red blood cells. Was also noted that the patient had a albumin of 2.8. The patient was admitted for further workup, and treatment as well as with a GI consult for possible GI Bleed. Patient is scheduled for EGD and colonoscopy tomorrow. Of note the patient did have a bronchoscopy with Dr. Polk on 2016 which was negative except for Elle. Upon examination the patient is resting in bedside chair on 2 L of supplemental oxygen via nasal cannula. Continues to have shortness of breath with exertion and activity. He has had a productive cough with white sputum that has been slightly blood tinged. Patient also noted to have bloody bowel movement yesterday. Patient is afebrile no further complaints. All labs and reports have been reviewed. Objective - Vital Signs Vital signs: Vital Signs Temp 97.9 F 07/19/17 15:00 Pulse 86 07/19/17 15:00 Resp 16 07/19/17 15:00 BP 114/58 07/19/17 15:00 Pulse Ox 100 07/19/17 15:00 Intake & Output 07/18/17 07/19/17 07/19/17 18:59 06:59 18:59 Other: Voiding Method Toilet Toilet Toilet # Voids 2 1 3 - Exam GENERAL EXAM: Alert, comfortable in no apparent distress. HEAD: Slight skull formation abnormality, patient states is from cancer of the scalp. EYES: Normal reaction of pupils, equal size. NOSE: Clear with pink turbinates. THROAT: No erythema or exudates. NECK: No masses, no JVD. CHEST: No chest wall deformity. LUNGS: Lungs noted to be diminished bilaterally with some faint expiratory wheezing noted throughout. Bases diminished CVS: S1 and S2 normal with no audible mumurs, regular rhythm. ABDOMEN: No hepatosplenomegaly, normal bowel sounds, no guarding or rigidity. EXTREMITIES: +1 LLE edema noted, pedal pulses palpable. SKIN: Scalp dry with scabs. CENTRAL NERVOUS SYSTEM: No focal deficits, tone is normal in all 4 extremities. - Labs CBC & Chem 7: 07/18/17 07:44 07/18/17 07:44 Labs: Abnormal Lab Results - Last 24 Hours (Table) 07/18/17 07/18/17 07/19/17 Range/Units 17:02 19:50 07:09 POC Glucose (mg/dL) 380 H 313 H 239 H (75-99) mg/dL 07/19/17 07/19/17 Range/Units 11:41 16:53 POC Glucose (mg/dL) 299 H 303 H (75-99) mg/dL Microbiology - Last 24 Hours (Table) 07/17/17 10:29 Gram Stain - Final Head Wound Culture - Final Corynebacterium striatum 07/17/17 14:05 Gram Stain - Final Bronchial Washings - Right Bronchial Washings Culture - Final Assessment and Plan Assessment: Assessment Squamous cell carcinoma likely stage IV with multiple lesion bilaterally in the lung Pulmonary cavitary lesion with history of multiple pulmonary nodules, these lesions are multiple and unusual bacterial or fungal infection cannot be excluded, but less likely metastatic cancer more likely, Anemia, suspect blood loss r/t GI Bleed Squamous cell skin cancer Moderate protein calorie malnutrition with poor appetite and failure to thrive History of COPD History of diastolic congestive heart failure Plan: Plan We will defer more definitive intervention to chemo and for chemo and radiation to oncology services will follow as outpatient basis Agri with discharge planning to ECF In case patient discharged to ECF will recommend follow-up in outpatient setting Medications have been reviewed and will be continued as ordered. We will cont DuoNeb and budesonide via nebulizer. Continue with pulmonary hygiene, coughing and deep breathing exercises, and supportive care. Supplemental oxygen to maintain oxygen saturations of 92% or better. Continue nebulizer treatments. Patient is also being seen by GI services and underwent an EGD and colonoscopy, Patient encourage incentive spirometer. GI and DVT prophylaxis. We will continue to monitor labs/results and adjust treatment as necessary. Patient is being scheduled for bronchoscopy and transbronchial lung biopsy under fluoroscopy for Monday late morning or early afternoon, as dictated above procedure alternative complication has been explained to the patient. Patient Understood them and would like to proceed Further recommendations pendin Time with Patient: Greater than 30
--- NOTE | 2017-07-19 19:05 | P.PN ---
Subjective Progress Note Date: 07/19/17 The patient continues to complain of poor endurance and shortness of breath despite being on oxygen. He has cough off and on. Denies any chest pain. No history of any obvious bleeding, bruising, or lymph node enlargement. Objective - Vital Signs Vital signs: Vital Signs Temp 97.9 F 07/19/17 15:00 Pulse 86 07/19/17 15:00 Resp 16 07/19/17 15:00 BP 114/58 07/19/17 15:00 Pulse Ox 100 07/19/17 15:00 Intake & Output 07/18/17 07/19/17 07/19/17 18:59 06:59 18:59 Other: Voiding Method Toilet Toilet Toilet # Voids 2 1 3 - Constitutional General appearance: Present: no acute distress - EENT Eyes: Present: PERRLA ENT: Present: normal oropharynx - Respiratory Respiratory: bilateral: diminished - Cardiovascular Rhythm: regular Heart sounds: normal: S1, S2 - Gastrointestinal General gastrointestinal: Present: normal bowel sounds, soft - Integumentary Integumentary Comment(s): bandage on area of prior scalp lesion - Neurologic Neurologic: Present: CNII-XII intact - Musculoskeletal Musculoskeletal: Present: generalized weakness, strength equal bilaterally - Psychiatric Psychiatric: Present: A&O x's 3, appropriate affect - Labs CBC & Chem 7: 07/18/17 07:44 07/18/17 07:44 Labs: Abnormal Lab Results - Last 24 Hours (Table) 07/18/17 07/19/17 07/19/17 Range/Units 19:50 07:09 11:41 POC Glucose (mg/dL) 313 H 239 H 299 H (75-99) mg/dL 07/19/17 Range/Units 16:53 POC Glucose (mg/dL) 303 H (75-99) mg/dL Microbiology - Last 24 Hours (Table) 07/17/17 10:29 Gram Stain - Final Head Wound Culture - Final Corynebacterium striatum 07/17/17 14:05 Gram Stain - Final Bronchial Washings - Right Bronchial Washings Culture - Final Assessment and Plan (1) Lung nodules Narrative/Plan: The patient is status post bronchoscopy. Cytology result was negative for evidence of malignancy. Therefore thoracic surgery were consulted for mediastinoscopy and biopsy. Case was discussed with them. Subsequent surgical pathology however came back positive for squamous cell carcinoma therefore given a diagnosis. It was therefore decided to cancel thoracic surgery consult. The lung biopsy could represent metastatic disease from the scalp lesion, versus a new lung primary. In either situation, the patient appears to have inoperable metastatic disease with involvement of both lungs. Given his age and poor performance status, treatment options may be limited. These will be discussed with him subsequently. Current Visit: No Status: Acute Priority: High Code(s): R91.8 - OTHER NONSPECIFIC ABNORMAL FINDING OF LUNG FIELD SNOMED Code(s): 623240364 (2) Colon polyp Narrative/Plan: The patient's colon polyp biopsy came back positive for tumor and all with high- grade dysplasia. It is not clear if the lesion was completely removed endoscopy. If not ideally the patient would need surgical resection. However given his current comorbidities is unlikely to be a candidate for the same at this point. Current Visit: Yes Status: Acute Code(s): K63.5 - POLYP OF COLON SNOMED Code(s): 51351338
[2017-07-19 19:51] LABS: Glucose,Whole Blood 300 mg/dL (75-99)
[2017-07-19] MEDS: FERROUS SULFATE 325 MG TAB PO SCH (20:35)
[2017-07-19] MEDS: POLYETHYLENE GLYCOL 3350 17 GM POWD.PACK PO SCH (20:36)
[2017-07-19] MEDS: PANTOPRAZOLE 40 MG TABLET PO SCH (20:36)
[2017-07-19] MEDS: METOPROLOL TARTRATE 25 MG TAB PO SCH (20:36)
[2017-07-19] MEDS: TAMSULOSIN 0.4 MG CAP.ER.24H PO SCH (20:36)
[2017-07-20] MEDS: HYDROcodone/APAP 10-325MG 1 EACH TAB PO SCH ×6 (00:26→20:56)
[2017-07-20] MEDS: methylPREDNISolone SOD SUCCI 40 MG/ML 1 ML VIAL IV SCH ×3 (00:29→16:53)
--- NOTE | 2017-07-20 04:57 | PN ---
PROGRESS NOTE SUBJECTIVE: This is a white male with pulmonary nodules, severe anemia status post bronchoscopy, possible squamous cell carcinoma of the lung versus . Awaiting pulmonology recommendations for discharge in a bed to be found at long-term care facility. Large mediastinal adenopathy, cavitary lesions of the lung. The patient will wait for . Cardiovascular S1-S2. Lungs transmitted upper sounds. GI soft and nontender. Hematologic negative Homans. Psych fair mood and affect. ASSESSMENT: 1. He apparently has squamous cell carcinoma, likely stage IV with multiple lesions bilaterally in the lungs. 2. Failure to thrive. 3. Chronic obstructive pulmonary disease. He will apparently get chemo and radiation treatment possibly as an outpatient. Follow up with Dr. Soto in his office. MMFRANCHESCAL / DELISAN: [id number] /
[2017-07-20] MEDS: LEVOTHYROXINE 100 MCG TAB PO SCH (06:15)
[2017-07-20 07:00] LABS: Glucose,Whole Blood 258 mg/dL (75-99)
[2017-07-20] MEDS: IPRATROPIUM-ALBUTEROL 3 ML NEB INHALATION SCH ×3 (07:46→18:59)
[2017-07-20] MEDS: BUDESONIDE 0.5 MG/2 ML NEBU INHALATION SCH ×2 (07:46→18:59)
[2017-07-20] MEDS: LISINOPRIL 5 MG TAB PO SCH ×2 (08:42→08:52)
[2017-07-20] MEDS: POTASSIUM CHLORIDE ER 20 MEQ TAB.ER PO SCH (08:42)
[2017-07-20] MEDS: FUROSEMIDE 80 MG TAB PO SCH ×2 (08:42→16:52)
[2017-07-20] MEDS: GABAPENTIN 300 MG CAP PO SCH ×2 (08:42→20:57)
[2017-07-20] MEDS: metFORMIN 500 MG TAB PO SCH (08:42)
[2017-07-20] MEDS: FOLIC ACID 1 MG TAB PO SCH (08:42)
[2017-07-20] MEDS: ASPIRIN 81 MG PO SCH (08:42)
[2017-07-20] MEDS: MAG HYDROX/AL HYDROX/SIMETH 30 ML, LIDOCAINE VISCOUS 30 ML, diphenhydrAMINE ELIXIR 75 M... PO SCH ×12 (08:43→21:01)
[2017-07-20] MEDS: INSULIN DETEMIR 100 UNIT/ML 10 ML VIAL SQ SCH (08:48)
[2017-07-20] MEDS: INSULIN ASPART 100 UNIT/ML 1 ML 10 ML VIAL SQ SCH ×4 (08:49→20:56)
--- NOTE | 2017-07-20 09:34 | P.PN ---
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 Bilateral multiple nodules including cavitary lesions, large mediastinal lymphadenopathy, history of a squamous cell cancer of the skin 07/20/2017, patient seen and evaluated examined have discussed with him at length about the biopsy finding also discussed with the staff I feel it is no need for mediastinoscopy at this point of time these findings of biopsy has been communicated with oncology service as well 07/19/2017, patient seen and evaluated examined during the rounds respiratory status overall stable he is not coughing any blood breathing is stable patient likely will be discharged to extended care facility the biopsy findings are back positive for 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 07/18/2017, patient seen eval reexamined during the rounds he is awake and alert breathing comfortably have mild cough or sputum production as his symptoms resolved respiratory status is much improved now findings on the bronchoscopy has been reviewed with the patient however the biopsy results as well as cytology remains pending, the findings on the Gram stain and culture has been reviewed few gram-positive cocci are seen on the BAL however gave B and AMY has been negative patient is currently on antibiotics 07/17/2017, patient seen and examined during the rounds patient has been brief and consult about bronchoscopy and lung biopsy on questions answered clinically overall doing well denies any hemoptysis denies any chest pain but get short of breath on minimal activity and exertion 07/15/2017, patient seen and evaluated examined during the rounds clinically doing better I have reviewed the computed tomography scan finding with the patient at length patient would like to proceed with bronchoscopy and biopsy as he is more interested in more definitive intervention, he also expresses his wishes to be a full code 07/14/17- patient seen examined and evaluated on rounds. patient is going for EGD and Colonoscopy today. Upon examination the patient is resting in bedside chair on 2 L of supplemental oxygen via nasal cannula. Continues to have shortness of breath with exertion and activity. He has had a productive cough with white sputum that has been slightly blood tinged, however very scant. Patient is afebrile no further complaints. All labs and reports have been reviewed. CT reviewed by Dr. Polk, and does show enlarged cavitary lesions. 07/13/17- This is an 87-year-old male patient well-known to our services be seen and examined and evaluated today on rounds. The patient does have a significant past medical history for squamous cell carcinoma of the scalp and was receiving radiation treatments in the outpatient setting with Dr. Schultz. The patient came into the emergency room via EMS for evaluation and workup of abdominal pain the patient had not have a bowel movement in over 5 days and was experiencing abdominal cramping and nausea. The patient states he is also not eating well and has a poor appetite. The patient has been very fatigued at home and has been unable to care for himself lately his caregiver was also concerned that the patient is unsafe to live at home. Upon workup in the emergency room the patient did undergo an acute abdomen series of x-ray which did show a right midlung cavitary lesion appearing thick walled which is likely neoplastic with his history of pulmonary nodules. Other etiologies could be cavitary pneumonia or septic emboli. These findings were compared to a Chest CT on 12/21/16. Patient was also noted to have lab work that revealed acute anemia with hemoglobin of 6.3 his digital rectal exam was negative for stool in rectal vault as well as negative for stool guaiac. Patient was given 2 units of packed red blood cells. Was also noted that the patient had a albumin of 2.8. The patient was admitted for further workup, and treatment as well as with a GI consult for possible GI Bleed. Patient is scheduled for EGD and colonoscopy tomorrow. Of note the patient did have a bronchoscopy with Dr. Polk on 2016 which was negative except for Elle. Upon examination the patient is resting in bedside chair on 2 L of supplemental oxygen via nasal cannula. Continues to have shortness of breath with exertion and activity. He has had a productive cough with white sputum that has been slightly blood tinged. Patient also noted to have bloody bowel movement yesterday. Patient is afebrile no further complaints. All labs and reports have been reviewed. Objective - Vital Signs Vital signs: Vital Signs Temp 97.5 F L 07/20/17 07:00 Pulse 97 07/20/17 08:58 Resp 18 07/20/17 08:58 BP 124/57 07/20/17 08:58 Pulse Ox 95 07/20/17 08:58 Intake & Output 07/19/17 07/20/17 07/20/17 18:59 06:59 18:59 Other: Voiding Method Toilet Toilet # Voids 3 1 - Exam GENERAL EXAM: Alert, comfortable in no apparent distress. HEAD: Slight skull formation abnormality, patient states is from cancer of the scalp. EYES: Normal reaction of pupils, equal size. NOSE: Clear with pink turbinates. THROAT: No erythema or exudates. NECK: No masses, no JVD. CHEST: No chest wall deformity. LUNGS: Lungs noted to be diminished bilaterally with some faint expiratory wheezing noted throughout. Bases diminished CVS: S1 and S2 normal with no audible mumurs, regular rhythm. ABDOMEN: No hepatosplenomegaly, normal bowel sounds, no guarding or rigidity. EXTREMITIES: +1 LLE edema noted, pedal pulses palpable. SKIN: Scalp dry with scabs. CENTRAL NERVOUS SYSTEM: No focal deficits, tone is normal in all 4 extremities. - Labs CBC & Chem 7: 07/18/17 07:44 07/18/17 07:44 Labs: Abnormal Lab Results - Last 24 Hours (Table) 07/19/17 07/19/17 07/19/17 Range/Units 11:41 16:53 19:50 POC Glucose (mg/dL) 299 H 303 H 300 H (75-99) mg/dL 07/20/17 Range/Units 06:59 POC Glucose (mg/dL) 258 H (75-99) mg/dL Microbiology - Last 24 Hours (Table) 07/17/17 14:05 Fungal Culture - Preliminary Bronchial Washings - Right Elle albicans 07/17/17 10:29 Gram Stain - Final Head Wound Culture - Final Corynebacterium striatum 07/17/17 14:05 Gram Stain - Final Bronchial Washings - Right Bronchial Washings Culture - Final Assessment and Plan Assessment: Assessment Squamous cell carcinoma likely stage IV with multiple cavitary lesion/nodule bilaterally in the lung Anemia, likely related to anemia of chronic disease Squamous cell skin cancer Moderate protein calorie malnutrition with poor appetite and failure to thrive History of COPD History of diastolic congestive heart failure Plan: Plan We will defer more definitive intervention to chemo and for chemo and radiation to oncology services will follow as outpatient basis Agree with discharge planning to ECF In case patient discharged to ECF will recommend follow-up in outpatient setting Medications have been reviewed and will be continued as ordered. We will cont DuoNeb and budesonide via nebulizer. Continue with pulmonary hygiene, coughing and deep breathing exercises, and supportive care. Supplemental oxygen to maintain oxygen saturations of 92% or better. Continue nebulizer treatments. Patient encourage incentive spirometer. GI and DVT prophylaxis. We will continue to monitor labs/results and adjust treatment as necessary. Time with Patient: Greater than 30
[2017-07-20 11:35] LABS: Glucose,Whole Blood 407 mg/dL (75-99)
--- NOTE | 2017-07-20 14:07 | P.PN ---
Subjective Progress Note Date: 07/20/17 Principal diagnosis: squamous cell carcinoma Pt seen in follow up to discuss biopsy results. Pt is sitting in chair, he denies SOB or discomfort at this time. Objective - Vital Signs Vital signs: Vital Signs Temp 97.5 F L 07/20/17 07:00 Pulse 72 07/20/17 13:41 Resp 18 07/20/17 13:41 BP 124/57 07/20/17 08:58 Pulse Ox 95 07/20/17 08:58 Intake & Output 07/19/17 07/20/17 07/20/17 18:59 06:59 18:59 Other: Voiding Method Toilet Toilet # Voids 3 1 - Constitutional Constitutional Comment(s): WDWN, sitting up in chair, NAD, Alert and oriented x 4 - Labs CBC & Chem 7: 07/18/17 07:44 07/18/17 07:44 Labs: Abnormal Lab Results - Last 24 Hours (Table) 07/19/17 07/19/17 07/20/17 Range/Units 16:53 19:50 06:59 POC Glucose (mg/dL) 303 H 300 H 258 H (75-99) mg/dL 07/20/17 Range/Units 11:25 POC Glucose (mg/dL) 407 H (75-99) mg/dL Microbiology - Last 24 Hours (Table) 07/17/17 14:05 Fungal Culture - Preliminary Bronchial Washings - Right Elle albicans 07/17/17 10:29 Gram Stain - Final Head Wound Culture - Final Corynebacterium striatum 07/17/17 14:05 Gram Stain - Final Bronchial Washings - Right Bronchial Washings Culture - Final Assessment and Plan (1) Squamous cell lung cancer Narrative/Plan: Dr. Fletcher discussed diagnosis of metastatic lung cancer with the patient. It was explained that the standard of care would be chemotherapy, intent being palliation to prolong life and alleviate symptoms. Unfortunately pt is unable to live alone and is needing ECF/rehab residency. When a patient requires a higher level of care treatment is not recommended as it is likely to harm the patient more then help them so, no treatment is being recommended. Pt verbalized understanding. He will be discharged to ECF facility and transition to hospice as his condition changes. All questions answered Current Visit: Yes Status: Acute Priority: High Code(s): C34.90 - MALIGNANT NEOPLASM OF UNSP PART OF UNSP BRONCHUS OR LUNG SNOMED Code(s): 316037536
[2017-07-20 16:47] LABS: Glucose,Whole Blood 215 mg/dL (75-99)
[2017-07-20 20:47] LABS: Glucose,Whole Blood 176 mg/dL (75-99)
[2017-07-20] MEDS: FERROUS SULFATE 325 MG TAB PO SCH (20:56)
[2017-07-20] MEDS: METOPROLOL TARTRATE 25 MG TAB PO SCH (20:56)
[2017-07-20] MEDS: TAMSULOSIN 0.4 MG CAP.ER.24H PO SCH (20:56)
[2017-07-20] MEDS: PANTOPRAZOLE 40 MG TABLET PO SCH (20:57)
[2017-07-20] MEDS: POLYETHYLENE GLYCOL 3350 17 GM POWD.PACK PO SCH (20:57)
--- NOTE | 2017-07-20 22:19 | PN ---
PROGRESS NOTE SUBJECTIVE: An 87-year-old white male with severe anemia and positive squamous cell lung cancer with squamous cell cancer of the skull, progressive multiple lesions in his lungs. Hematology and Oncology has been consulted. He may need some chemotherapy or radiation treatments for this. Finding a rehab center for him is pending. CARDIOVASCULAR: S1, S2. LUNGS: Clear. GI: Soft. HEMATOLOGY: Negative Homans'. OPHTHALMOLOGIC: Pupils equal, round, reactive to light and accommodation. ASSESSMENT: 1. Severe anemia. 2. 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 Possible chemotherapy and radiation will be done. Please see further orders. Diabetes will be controlled. All other medications will be continued. Please see further orders. MMODL / IJN: [id number] /
[2017-07-21] MEDS: methylPREDNISolone SOD SUCCI 40 MG/ML 1 ML VIAL IV SCH ×4 (00:24→16:39)
[2017-07-21] MEDS: HYDROcodone/APAP 10-325MG 1 EACH TAB PO SCH ×7 (00:25→23:52)
[2017-07-21] MEDS: LEVOTHYROXINE 100 MCG TAB PO SCH (06:27)
[2017-07-21] MEDS: IPRATROPIUM-ALBUTEROL 3 ML NEB INHALATION SCH ×3 (07:16→21:47)
[2017-07-21] MEDS: BUDESONIDE 0.5 MG/2 ML NEBU INHALATION SCH ×2 (07:16→21:47)
[2017-07-21 07:30] LABS: Glucose,Whole Blood 173 mg/dL (75-99)
[2017-07-21] MEDS: INSULIN ASPART 100 UNIT/ML 1 ML 10 ML VIAL SQ SCH ×4 (08:34→22:29)
[2017-07-21] MEDS: MAG HYDROX/AL HYDROX/SIMETH 30 ML, LIDOCAINE VISCOUS 30 ML, diphenhydrAMINE ELIXIR 75 M... PO SCH ×12 (08:35→22:25)
[2017-07-21] MEDS: FUROSEMIDE 80 MG TAB PO SCH ×2 (08:36→16:41)
[2017-07-21] MEDS: ASPIRIN 81 MG PO SCH (08:36)
[2017-07-21] MEDS: LISINOPRIL 5 MG TAB PO SCH (08:36)
[2017-07-21] MEDS: GABAPENTIN 300 MG CAP PO SCH ×2 (08:36→22:25)
[2017-07-21] MEDS: POTASSIUM CHLORIDE ER 20 MEQ TAB.ER PO SCH (08:37)
[2017-07-21] MEDS: INSULIN DETEMIR 100 UNIT/ML 10 ML VIAL SQ SCH (08:46)
[2017-07-21] MEDS: metFORMIN 500 MG TAB PO SCH (08:47)
[2017-07-21 12:33] LABS: Glucose,Whole Blood 220 mg/dL (75-99)
[2017-07-21] MEDS: FOLIC ACID 1 MG TAB PO SCH (12:45)
--- NOTE | 2017-07-21 14:52 | P.PN ---
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 Bilateral multiple nodules including cavitary lesions, large mediastinal lymphadenopathy, history of a squamous cell cancer of the skin 07/20/2017, patient seen and evaluated examined have discussed with him at length about the biopsy finding also discussed with the staff I feel it is no need for mediastinoscopy at this point of time these findings of biopsy has been communicated with oncology service as well 07/19/2017, patient seen and evaluated examined during the rounds respiratory status overall stable he is not coughing any blood breathing is stable patient likely will be discharged to extended care facility the biopsy findings are back positive for 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 07/18/2017, patient seen eval reexamined during the rounds he is awake and alert breathing comfortably have mild cough or sputum production as his symptoms resolved respiratory status is much improved now findings on the bronchoscopy has been reviewed with the patient however the biopsy results as well as cytology remains pending, the findings on the Gram stain and culture has been reviewed few gram-positive cocci are seen on the BAL however gave B and AMY has been negative patient is currently on antibiotics 07/17/2017, patient seen and examined during the rounds patient has been brief and consult about bronchoscopy and lung biopsy on questions answered clinically overall doing well denies any hemoptysis denies any chest pain but get short of breath on minimal activity and exertion 07/15/2017, patient seen and evaluated examined during the rounds clinically doing better I have reviewed the computed tomography scan finding with the patient at length patient would like to proceed with bronchoscopy and biopsy as he is more interested in more definitive intervention, he also expresses his wishes to be a full code 07/14/17- patient seen examined and evaluated on rounds. patient is going for EGD and Colonoscopy today. Upon examination the patient is resting in bedside chair on 2 L of supplemental oxygen via nasal cannula. Continues to have shortness of breath with exertion and activity. He has had a productive cough with white sputum that has been slightly blood tinged, however very scant. Patient is afebrile no further complaints. All labs and reports have been reviewed. CT reviewed by Dr. Polk, and does show enlarged cavitary lesions. 07/13/17- This is an 87-year-old male patient well-known to our services be seen and examined and evaluated today on rounds. The patient does have a significant past medical history for squamous cell carcinoma of the scalp and was receiving radiation treatments in the outpatient setting with Dr. Schultz. The patient came into the emergency room via EMS for evaluation and workup of abdominal pain the patient had not have a bowel movement in over 5 days and was experiencing abdominal cramping and nausea. The patient states he is also not eating well and has a poor appetite. The patient has been very fatigued at home and has been unable to care for himself lately his caregiver was also concerned that the patient is unsafe to live at home. Upon workup in the emergency room the patient did undergo an acute abdomen series of x-ray which did show a right midlung cavitary lesion appearing thick walled which is likely neoplastic with his history of pulmonary nodules. Other etiologies could be cavitary pneumonia or septic emboli. These findings were compared to a Chest CT on 12/21/16. Patient was also noted to have lab work that revealed acute anemia with hemoglobin of 6.3 his digital rectal exam was negative for stool in rectal vault as well as negative for stool guaiac. Patient was given 2 units of packed red blood cells. Was also noted that the patient had a albumin of 2.8. The patient was admitted for further workup, and treatment as well as with a GI consult for possible GI Bleed. Patient is scheduled for EGD and colonoscopy tomorrow. Of note the patient did have a bronchoscopy with Dr. Polk on 2016 which was negative except for Elle. Upon examination the patient is resting in bedside chair on 2 L of supplemental oxygen via nasal cannula. Continues to have shortness of breath with exertion and activity. He has had a productive cough with white sputum that has been slightly blood tinged. Patient also noted to have bloody bowel movement yesterday. Patient is afebrile no further complaints. All labs and reports have been reviewed. Objective - Vital Signs Vital signs: Vital Signs Temp 97.5 F L 07/21/17 07:00 Pulse 80 07/21/17 07:30 Resp 18 07/21/17 07:00 BP 97/46 07/21/17 07:00 Pulse Ox 96 07/21/17 07:00 Intake & Output 07/20/17 07/21/17 07/21/17 18:59 06:59 18:59 Intake Total 600 590 Balance 600 590 Intake: Oral 600 590 Other: # Voids 2 1 # Bowel Movements 1 - Exam GENERAL EXAM: Alert, comfortable in no apparent distress. HEAD: Slight skull formation abnormality, patient states is from cancer of the scalp. EYES: Normal reaction of pupils, equal size. NOSE: Clear with pink turbinates. THROAT: No erythema or exudates. NECK: No masses, no JVD. CHEST: No chest wall deformity. LUNGS: Lungs noted to be diminished bilaterally with some faint expiratory wheezing noted throughout. Bases diminished CVS: S1 and S2 normal with no audible mumurs, regular rhythm. ABDOMEN: No hepatosplenomegaly, normal bowel sounds, no guarding or rigidity. EXTREMITIES: +1 LLE edema noted, pedal pulses palpable. SKIN: Scalp dry with scabs. CENTRAL NERVOUS SYSTEM: No focal deficits, tone is normal in all 4 extremities. - Labs CBC & Chem 7: 07/18/17 07:44 07/18/17 07:44 Labs: Abnormal Lab Results - Last 24 Hours (Table) 07/20/17 07/20/17 07/21/17 Range/Units 16:45 20:46 07:28 POC Glucose (mg/dL) 215 H 176 H 173 H (75-99) mg/dL 07/21/17 Range/Units 12:32 POC Glucose (mg/dL) 220 H (75-99) mg/dL Assessment and Plan Assessment: Assessment Squamous cell carcinoma likely stage IV with multiple cavitary lesion/nodule bilaterally in the lung Anemia, likely related to anemia of chronic disease Squamous cell skin cancer Moderate protein calorie malnutrition with poor appetite and failure to thrive History of COPD History of diastolic congestive heart failure Plan: Plan We will defer more definitive intervention to chemo to oncology services will follow as outpatient basis Agree with discharge planning to ECF In case patient discharged to ECF will recommend follow-up in outpatient setting Medications have been reviewed and will be continued as ordered. We will cont DuoNeb and budesonide via nebulizer. Continue with pulmonary hygiene, coughing and deep breathing exercises, and supportive care. Supplemental oxygen to maintain oxygen saturations of 92% or better. Continue nebulizer treatments. Patient encourage incentive spirometer. GI and DVT prophylaxis. We will continue to monitor labs/results and adjust treatment as necessary. Time with Patient: Greater than 30
[2017-07-21 17:55] LABS: Glucose,Whole Blood 196 mg/dL (75-99)
[2017-07-21 20:55] LABS: Glucose,Whole Blood 207 mg/dL (75-99)
--- NOTE | 2017-07-21 22:20 | PN ---
PROGRESS NOTE SUBJECTIVE: [id number] white male who was admitted to the hospital. He is awaiting ECF placement. His has metastatic squamous cell carcinoma of the chest radiating to the skull and multiple pulmonary nodules. Vital signs stable. Cardiovascular S1, S2. Lungs scattered rhonchi and wheeze. GI soft. Hematology negative Homans. ASSESSMENT: 1. 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 2. Chronic obstructive pulmonary disease. 3. Diastolic congestive heart failure of the right. 4. Hypertension. 5. Hypothyroidism. Continue current treatment. Follow up in next 24 to 48 hours. Continue with IV antibiotics, IV steroids. MMODL / IJN: [id number] /
[2017-07-21] MEDS: METOPROLOL TARTRATE 25 MG TAB PO SCH (22:25)
[2017-07-21] MEDS: TAMSULOSIN 0.4 MG CAP.ER.24H PO SCH (22:25)
[2017-07-21] MEDS: PANTOPRAZOLE 40 MG TABLET PO SCH (22:25)
[2017-07-21] MEDS: FERROUS SULFATE 325 MG TAB PO SCH (22:26)
[2017-07-21] MEDS: POLYETHYLENE GLYCOL 3350 17 GM POWD.PACK PO SCH (22:36)
[2017-07-22] MEDS: methylPREDNISolone SOD SUCCI 40 MG/ML 1 ML VIAL IV SCH ×5 (00:03→23:53)
[2017-07-22] MEDS: HYDROcodone/APAP 10-325MG 1 EACH TAB PO SCH ×6 (03:58→23:49)
[2017-07-22] MEDS: LEVOTHYROXINE 100 MCG TAB PO SCH (06:11)
[2017-07-22 08:06] LABS: Glucose,Whole Blood 148 mg/dL (75-99)
[2017-07-22] MEDS: MAG HYDROX/AL HYDROX/SIMETH 30 ML, LIDOCAINE VISCOUS 30 ML, diphenhydrAMINE ELIXIR 75 M... PO SCH ×12 (08:25→20:58)
[2017-07-22] MEDS: INSULIN DETEMIR 100 UNIT/ML 10 ML VIAL SQ SCH (08:26)
[2017-07-22] MEDS: GABAPENTIN 300 MG CAP PO SCH ×2 (08:26→20:57)
[2017-07-22] MEDS: POTASSIUM CHLORIDE ER 20 MEQ TAB.ER PO SCH (08:26)
[2017-07-22] MEDS: ASPIRIN 81 MG PO SCH (08:26)
[2017-07-22] MEDS: FUROSEMIDE 80 MG TAB PO SCH ×2 (08:26→16:17)
[2017-07-22] MEDS: LISINOPRIL 5 MG TAB PO SCH (08:26)
[2017-07-22] MEDS: INSULIN ASPART 100 UNIT/ML 1 ML 10 ML VIAL SQ SCH ×4 (08:27→21:00)
[2017-07-22] MEDS: metFORMIN 500 MG TAB PO SCH (08:27)
[2017-07-22] MEDS: IPRATROPIUM-ALBUTEROL 3 ML NEB INHALATION SCH ×3 (08:31→20:09)
[2017-07-22] MEDS: BUDESONIDE 0.5 MG/2 ML NEBU INHALATION SCH ×2 (08:31→20:09)
[2017-07-22] MEDS: FLUTICASONE 50MCG/SPRAY NASAL 16GM EA NOSTRIL SCH (09:15)
[2017-07-22 11:26] LABS: Glucose,Whole Blood 326 mg/dL (75-99)
[2017-07-22] MEDS: FOLIC ACID 1 MG TAB PO SCH (12:08)
--- NOTE | 2017-07-22 12:33 | PN ---
PROGRESS NOTE SUBJECTIVE: An 87-year-old white male admitted with anemia. He was found to have positive bronchoscopy with squamous cell lung cancer which is diffuse through both lungs. He is not a candidate for chemotherapy. Awaiting ECF placement. Patient does not want hospice. His sugars have been stable with his current insulin. He was requesting a nasal spray. Fluticasone will be reordered. He remains on IV Solu-Medrol 20 mg q.8 hours, which is helping his arthritis. CARDIOVASCULAR: S1, S2. LUNGS: Scattered rhonchi and wheeze. PSYCH: He is sitting up in the chair. Giving appropriate answers. HEMATOLOGY: Negative Homans. ASSESSMENT: 1. Metastatic squamous cell carcinoma of the lung with lung primary. 2. Insulin-dependent diabetes mellitus. 3. Hypertension. 4. Hypothyroidism. 5. Gastroesophageal reflux disease. 6. Chronic obstructive pulmonary disease. 7. Allergic rhinitis. 8. Severe osteoarthritis. 9. Degenerative disc disease. 10.Benign prostatic hypertrophy. 11.Restless legs syndrome. Continue current medications. Aspercreme for arthritis pain. Insulin will be given. Will wean him off IV steroids. Await for ECF placement on Monday. MMODL / IJN: [id number] /
[2017-07-22 17:38] LABS: Glucose,Whole Blood 189 mg/dL (75-99)
[2017-07-22 20:57] LABS: Glucose,Whole Blood 235 mg/dL (75-99)
[2017-07-22] MEDS: PANTOPRAZOLE 40 MG TABLET PO SCH (20:57)
[2017-07-22] MEDS: METOPROLOL TARTRATE 25 MG TAB PO SCH (20:57)
[2017-07-22] MEDS: TAMSULOSIN 0.4 MG CAP.ER.24H PO SCH (20:57)
[2017-07-22] MEDS: POLYETHYLENE GLYCOL 3350 17 GM POWD.PACK PO SCH (20:58)
[2017-07-22] MEDS: FERROUS SULFATE 325 MG TAB PO SCH (20:58)
[2017-07-23] MEDS: HYDROcodone/APAP 10-325MG 1 EACH TAB PO SCH ×6 (04:57→23:53)
[2017-07-23] MEDS: LEVOTHYROXINE 100 MCG TAB PO SCH (05:55)
[2017-07-23 07:26] LABS: Basophils # (A) 0.1 k/uL (0-0.2); Basophils % (A) 1 %; Eosinophils # (A) 0.3 k/uL (0-0.7); Eosinophils % (A) 3 %; HCT 32.4 % (39.0-53.0); HGB 10.3 gm/dL (13.0-17.5); Lymphocytes # (A) 1.8 k/uL (1.0-4.8); Lymphocytes % (A) 20 %; MCH 29.9 pg (25.0-35.0); MCHC 31.7 g/dL (31.0-37.0); MCV 94.4 fL (80.0-100.0); Mean Platelet Volume 7.4; Monocytes # (A) 0.7 k/uL (0-1.0); Monocytes % (A) 7 %; Neutrophils # (A) 6.2 k/uL (1.3-7.7); Neutrophils % (A) 68 %; Platelet Count 237 k/uL (150-450); RBC 3.43 m/uL (4.30-5.90); RDW 14.5 % (11.5-15.5); WBC 9.1 k/uL (3.8-10.6)
[2017-07-23 07:39] LABS: Glucose,Whole Blood 135 mg/dL (75-99)
[2017-07-23 07:40] LABS: Albumin 3.1 g/dL (3.5-5.0); Calcium 9.1 mg/dL (8.4-10.2); Potassium 4.1 mmol/L (3.5-5.1); Total Bilirubin 0.7 mg/dL (0.2-1.3); Total Protein 6.4 g/dL (6.3-8.2)
[2017-07-23] MEDS: MAG HYDROX/AL HYDROX/SIMETH 30 ML, LIDOCAINE VISCOUS 30 ML, diphenhydrAMINE ELIXIR 75 M... PO SCH ×12 (08:13→22:02)
[2017-07-23] MEDS: INSULIN DETEMIR 100 UNIT/ML 10 ML VIAL SQ SCH (08:13)
[2017-07-23] MEDS: POTASSIUM CHLORIDE ER 20 MEQ TAB.ER PO SCH (08:13)
[2017-07-23] MEDS: LISINOPRIL 5 MG TAB PO SCH (08:13)
[2017-07-23] MEDS: GABAPENTIN 300 MG CAP PO SCH ×2 (08:14→21:33)
[2017-07-23] MEDS: FUROSEMIDE 80 MG TAB PO SCH (08:14)
[2017-07-23] MEDS: FLUTICASONE 50MCG/SPRAY NASAL 16GM EA NOSTRIL SCH (08:14)
[2017-07-23] MEDS: INSULIN ASPART 100 UNIT/ML 1 ML 10 ML VIAL SQ SCH ×4 (08:15→21:32)
[2017-07-23] MEDS: ASPIRIN 81 MG PO SCH (08:15)
[2017-07-23] MEDS: methylPREDNISolone SOD SUCCI 40 MG/ML 1 ML VIAL IV SCH ×2 (08:15→16:48)
[2017-07-23] MEDS: metFORMIN 500 MG TAB PO SCH (08:15)
[2017-07-23] MEDS: IPRATROPIUM-ALBUTEROL 3 ML NEB INHALATION SCH ×3 (08:50→19:26)
[2017-07-23] MEDS: BUDESONIDE 0.5 MG/2 ML NEBU INHALATION SCH ×2 (08:53→19:26)
--- NOTE | 2017-07-23 08:53 | P.PN ---
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 Bilateral multiple nodules including cavitary lesions, large mediastinal lymphadenopathy, history of a squamous cell cancer of the skin 07/23/2017, patient seen eval reexamined noted being eval of her placement ECF and would not be treated with chemotherapy once in ECF his respiratory status stable overall from pulmonary standpoint can be discharged 07/22/2017, patient seen and evaluated examined care plan discussed with the patient would that he cannot take care of himself with a high risk of complication living by himself noted that patient cannot get chemotherapy from the extended care facility, social problems specialist is making arrangements for placement will follow, from respiratory standpoint doing relatively well denies any cough or sputum production denies any chest pain breathing comfortably 07/21/2017, he shouldn't seen evaluated examined care plan discussed with the patient as well care plan also discussed with oncology service patient is being considered for ECF placement due to logistic issues would not be a candidate for chemo or radiation therapy, will follow 07/20/2017, patient seen and evaluated examined have discussed with him at length about the biopsy finding also discussed with the staff I feel it is no need for mediastinoscopy at this point of time these findings of biopsy has been communicated with oncology service as well 07/19/2017, patient seen and evaluated examined during the rounds respiratory status overall stable he is not coughing any blood breathing is stable patient likely will be discharged to extended care facility the biopsy findings are back positive for 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 07/18/2017, patient seen eval reexamined during the rounds he is awake and alert breathing comfortably have mild cough or sputum production as his symptoms resolved respiratory status is much improved now findings on the bronchoscopy has been reviewed with the patient however the biopsy results as well as cytology remains pending, the findings on the Gram stain and culture has been reviewed few gram-positive cocci are seen on the BAL however gave B and AMY has been negative patient is currently on antibiotics 07/17/2017, patient seen and examined during the rounds patient has been brief and consult about bronchoscopy and lung biopsy on questions answered clinically overall doing well denies any hemoptysis denies any chest pain but get short of breath on minimal activity and exertion 07/15/2017, patient seen and evaluated examined during the rounds clinically doing better I have reviewed the computed tomography scan finding with the patient at length patient would like to proceed with bronchoscopy and biopsy as he is more interested in more definitive intervention, he also expresses his wishes to be a full code 07/14/17- patient seen examined and evaluated on rounds. patient is going for EGD and Colonoscopy today. Upon examination the patient is resting in bedside chair on 2 L of supplemental oxygen via nasal cannula. Continues to have shortness of breath with exertion and activity. He has had a productive cough with white sputum that has been slightly blood tinged, however very scant. Patient is afebrile no further complaints. All labs and reports have been reviewed. CT reviewed by Dr. Polk, and does show enlarged cavitary lesions. 07/13/17- This is an 87-year-old male patient well-known to our services be seen and examined and evaluated today on rounds. The patient does have a significant past medical history for squamous cell carcinoma of the scalp and was receiving radiation treatments in the outpatient setting with Dr. Schultz. The patient came into the emergency room via EMS for evaluation and workup of abdominal pain the patient had not have a bowel movement in over 5 days and was experiencing abdominal cramping and nausea. The patient states he is also not eating well and has a poor appetite. The patient has been very fatigued at home and has been unable to care for himself lately his caregiver was also concerned that the patient is unsafe to live at home. Upon workup in the emergency room the patient did undergo an acute abdomen series of x-ray which did show a right midlung cavitary lesion appearing thick walled which is likely neoplastic with his history of pulmonary nodules. Other etiologies could be cavitary pneumonia or septic emboli. These findings were compared to a Chest CT on 12/21/16. Patient was also noted to have lab work that revealed acute anemia with hemoglobin of 6.3 his digital rectal exam was negative for stool in rectal vault as well as negative for stool guaiac. Patient was given 2 units of packed red blood cells. Was also noted that the patient had a albumin of 2.8. The patient was admitted for further workup, and treatment as well as with a GI consult for possible GI Bleed. Patient is scheduled for EGD and colonoscopy tomorrow. Of note the patient did have a bronchoscopy with Dr. Polk on 2016 which was negative except for Elle. Upon examination the patient is resting in bedside chair on 2 L of supplemental oxygen via nasal cannula. Continues to have shortness of breath with exertion and activity. He has had a productive cough with white sputum that has been slightly blood tinged. Patient also noted to have bloody bowel movement yesterday. Patient is afebrile no further complaints. All labs and reports have been reviewed. Objective - Vital Signs Vital signs: Vital Signs Temp 97.5 F L 07/22/17 22:36 Pulse 81 07/22/17 22:36 Resp 22 07/22/17 22:36 BP 96/52 07/22/17 22:36 Pulse Ox 100 07/22/17 22:36 Intake & Output 07/22/17 07/23/17 07/23/17 18:59 06:59 18:59 Other: Voiding Method Toilet Toilet # Voids 2 2 - Exam GENERAL EXAM: Alert, comfortable in no apparent distress. HEAD: Slight skull formation abnormality, patient states is from cancer of the scalp. EYES: Normal reaction of pupils, equal size. NOSE: Clear with pink turbinates. THROAT: No erythema or exudates. NECK: No masses, no JVD. CHEST: No chest wall deformity. LUNGS: Lungs noted to be diminished bilaterally with some faint expiratory wheezing noted throughout. Bases diminished CVS: S1 and S2 normal with no audible mumurs, regular rhythm. ABDOMEN: No hepatosplenomegaly, normal bowel sounds, no guarding or rigidity. EXTREMITIES: +1 LLE edema noted, pedal pulses palpable. SKIN: Scalp dry with scabs. CENTRAL NERVOUS SYSTEM: No focal deficits, tone is normal in all 4 extremities. - Labs CBC & Chem 7: 07/23/17 06:43 07/23/17 06:43 Labs: Abnormal Lab Results - Last 24 Hours (Table) 07/22/17 07/22/17 07/22/17 Range/Units 11:06 17:24 20:46 RBC (4.30-5.90) m/uL Hgb (13.0-17.5) gm/dL Hct (39.0-53.0) % Chloride (98-107) mmol/L Carbon Dioxide (22-30) mmol/L BUN (9-20) mg/dL Creatinine (0.66-1.25) mg/dL Glucose (74-99) mg/dL POC Glucose (mg/dL) 326 H 189 H 235 H (75-99) mg/dL Albumin (3.5-5.0) g/dL 07/23/17 07/23/17 07/23/17 Range/Units 06:43 06:43 07:35 RBC 3.43 L (4.30-5.90) m/uL Hgb 10.3 L (13.0-17.5) gm/dL Hct 32.4 L (39.0-53.0) % Chloride 97 L (98-107) mmol/L Carbon Dioxide 31 H (22-30) mmol/L BUN 33 H (9-20) mg/dL Creatinine 1.61 H (0.66-1.25) mg/dL Glucose 112 H (74-99) mg/dL POC Glucose (mg/dL) 135 H (75-99) mg/dL Albumin 3.1 L (3.5-5.0) g/dL Assessment and Plan Assessment: Assessment Squamous cell carcinoma likely stage IV with multiple cavitary lesion/nodule bilaterally in the lung Anemia, likely related to anemia of chronic disease Squamous cell skin cancer Moderate protein calorie malnutrition with poor appetite and failure to thrive History of COPD History of diastolic congestive heart failure Plan: Plan We will defer more definitive intervention to chemo to oncology services will follow as outpatient basis Agree with discharge planning to ECF In case patient discharged to ECF will recommend follow-up in outpatient setting Medications have been reviewed and will be continued as ordered. We will cont DuoNeb and budesonide via nebulizer. Continue with pulmonary hygiene, coughing and deep breathing exercises, and supportive care. Supplemental oxygen to maintain oxygen saturations of 92% or better. Continue nebulizer treatments. Patient encourage incentive spirometer. GI and DVT prophylaxis. We will continue to monitor labs/results and adjust treatment as necessary. Time with Patient: Less than 30
[2017-07-23 11:13] LABS: Glucose,Whole Blood 347 mg/dL (75-99)
[2017-07-23] MEDS: FOLIC ACID 1 MG TAB PO SCH (12:48)
[2017-07-23] MEDS: FUROSEMIDE 40 MG TAB PO SCH (16:49)
[2017-07-23 16:51] LABS: Glucose,Whole Blood 117 mg/dL (75-99)
--- NOTE | 2017-07-23 17:28 | DS ---
DISCHARGE SUMMARY Anemia due to malignancy. MMODL / IJN: [id number] /
--- NOTE | 2017-07-23 18:49 | PN ---
PROGRESS NOTE SUBJECTIVE: 87-year-old white male with significant anemia, metastatic lung cancer with squamous cell carcinoma of the scalp. Discussed the case with Hematology today. No further treatment of radiation or chemo is going to be done. He will go to extended care facility. His guardian wants patient to go to [facility] for long-term care by her house. This will need to be discussed with the daughter tomorrow. CARDIOVASCULAR: S1, S2. LUNGS: Transmitted upper sounds, scattered wheeze. GI: Soft. HEMATOLOGY: Negative Homans. ASSESSMENT: 1. Insulin-dependent diabetes mellitus. 2. Metastatic squamous cell cancer of the lung. 3. Squamous skin cancer of the scalp. 4. Chronic obstructive pulmonary disease. 5. Diastolic heart failure. 6. Hypertension. 7. Degenerative disc disease. 8. Osteoarthritis. Please see further orders. ECF placement. No chemo or radiation will be done. MMODL / IJN: [id number] /
[2017-07-23 21:08] LABS: Glucose,Whole Blood 217 mg/dL (75-99)
[2017-07-23] MEDS: FERROUS SULFATE 325 MG TAB PO SCH (21:32)
[2017-07-23] MEDS: TAMSULOSIN 0.4 MG CAP.ER.24H PO SCH (21:32)
[2017-07-23] MEDS: METOPROLOL TARTRATE 25 MG TAB PO SCH (21:32)
[2017-07-23] MEDS: POLYETHYLENE GLYCOL 3350 17 GM POWD.PACK PO SCH (21:33)
[2017-07-23] MEDS: PANTOPRAZOLE 40 MG TABLET PO SCH (21:33)
[2017-07-24] MEDS: methylPREDNISolone SOD SUCCI 40 MG/ML 1 ML VIAL IV SCH ×3 (03:01→16:41)
[2017-07-24] MEDS: HYDROcodone/APAP 10-325MG 1 EACH TAB PO SCH ×4 (04:01→16:45)
[2017-07-24] MEDS: LEVOTHYROXINE 100 MCG TAB PO SCH (06:04)
[2017-07-24 07:21] LABS: Glucose,Whole Blood 147 mg/dL (75-99)
[2017-07-24] MEDS: BUDESONIDE 0.5 MG/2 ML NEBU INHALATION SCH (07:53)
[2017-07-24] MEDS: IPRATROPIUM-ALBUTEROL 3 ML NEB INHALATION SCH ×2 (07:53→13:34)
[2017-07-24] MEDS: MAG HYDROX/AL HYDROX/SIMETH 30 ML, LIDOCAINE VISCOUS 30 ML, diphenhydrAMINE ELIXIR 75 M... PO SCH ×8 (08:14→16:43)
[2017-07-24] MEDS: POTASSIUM CHLORIDE ER 20 MEQ TAB.ER PO SCH (08:15)
[2017-07-24] MEDS: ASPIRIN 81 MG PO SCH (08:15)
[2017-07-24] MEDS: metFORMIN 500 MG TAB PO SCH (08:15)
[2017-07-24] MEDS: GABAPENTIN 300 MG CAP PO SCH (08:15)
[2017-07-24] MEDS: LISINOPRIL 5 MG TAB PO SCH (08:15)
[2017-07-24] MEDS: INSULIN ASPART 100 UNIT/ML 1 ML 10 ML VIAL SQ SCH ×2 (08:16→13:04)
[2017-07-24] MEDS: FLUTICASONE 50MCG/SPRAY NASAL 16GM EA NOSTRIL SCH (08:18)
[2017-07-24] MEDS: INSULIN DETEMIR 100 UNIT/ML 10 ML VIAL SQ SCH (08:42)
[2017-07-24 08:48] VITALS: TEMP 97.5
[2017-07-24] MEDS ORDERED: FUROSEMIDE 80 MG TAB PO SCH (09:00)
--- NOTE | 2017-07-24 11:41 | P.PN ---
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 Bilateral multiple nodules including cavitary lesions, large mediastinal lymphadenopathy, history of a squamous cell cancer of the skin 07/24/2017, patient seen and evaluated examined he is been ambulating the hallway respiratory status stable improve is being closely monitored and observed and being planned for possible discharge once bed is available 07/23/2017, patient seen eval reexamined noted being eval of her placement ECF and would not be treated with chemotherapy once in ECF his respiratory status stable overall from pulmonary standpoint can be discharged 07/22/2017, patient seen and evaluated examined care plan discussed with the patient would that he cannot take care of himself with a high risk of complication living by himself noted that patient cannot get chemotherapy from the extended care facility, social services analyst is making arrangements for placement will follow, from respiratory standpoint doing relatively well denies any cough or sputum production denies any chest pain breathing comfortably 07/21/2017, he shouldn't seen evaluated examined care plan discussed with the patient as well care plan also discussed with oncology service patient is being considered for ECF placement due to logistic issues would not be a candidate for chemo or radiation therapy, will follow 07/20/2017, patient seen and evaluated examined have discussed with him at length about the biopsy finding also discussed with the staff I feel it is no need for mediastinoscopy at this point of time these findings of biopsy has been communicated with oncology service as well 07/19/2017, patient seen and evaluated examined during the rounds respiratory status overall stable he is not coughing any blood breathing is stable patient likely will be discharged to extended care facility the biopsy findings are back positive for 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 07/18/2017, patient seen eval reexamined during the rounds he is awake and alert breathing comfortably have mild cough or sputum production as his symptoms resolved respiratory status is much improved now findings on the bronchoscopy has been reviewed with the patient however the biopsy results as well as cytology remains pending, the findings on the Gram stain and culture has been reviewed few gram-positive cocci are seen on the BAL however gave B and AMY has been negative patient is currently on antibiotics 07/17/2017, patient seen and examined during the rounds patient has been brief and consult about bronchoscopy and lung biopsy on questions answered clinically overall doing well denies any hemoptysis denies any chest pain but get short of breath on minimal activity and exertion 07/15/2017, patient seen and evaluated examined during the rounds clinically doing better I have reviewed the computed tomography scan finding with the patient at length patient would like to proceed with bronchoscopy and biopsy as he is more interested in more definitive intervention, he also expresses his wishes to be a full code 07/14/17- patient seen examined and evaluated on rounds. patient is going for EGD and Colonoscopy today. Upon examination the patient is resting in bedside chair on 2 L of supplemental oxygen via nasal cannula. Continues to have shortness of breath with exertion and activity. He has had a productive cough with white sputum that has been slightly blood tinged, however very scant. Patient is afebrile no further complaints. All labs and reports have been reviewed. CT reviewed by Dr. Polk, and does show enlarged cavitary lesions. 07/13/17- This is an 87-year-old male patient well-known to our services be seen and examined and evaluated today on rounds. The patient does have a significant past medical history for squamous cell carcinoma of the scalp and was receiving radiation treatments in the outpatient setting with Dr. Schultz. The patient came into the emergency room via EMS for evaluation and workup of abdominal pain the patient had not have a bowel movement in over 5 days and was experiencing abdominal cramping and nausea. The patient states he is also not eating well and has a poor appetite. The patient has been very fatigued at home and has been unable to care for himself lately his caregiver was also concerned that the patient is unsafe to live at home. Upon workup in the emergency room the patient did undergo an acute abdomen series of x-ray which did show a right midlung cavitary lesion appearing thick walled which is likely neoplastic with his history of pulmonary nodules. Other etiologies could be cavitary pneumonia or septic emboli. These findings were compared to a Chest CT on 12/21/16. Patient was also noted to have lab work that revealed acute anemia with hemoglobin of 6.3 his digital rectal exam was negative for stool in rectal vault as well as negative for stool guaiac. Patient was given 2 units of packed red blood cells. Was also noted that the patient had a albumin of 2.8. The patient was admitted for further workup, and treatment as well as with a GI consult for possible GI Bleed. Patient is scheduled for EGD and colonoscopy tomorrow. Of note the patient did have a bronchoscopy with Dr. Polk on 2016 which was negative except for Elle. Upon examination the patient is resting in bedside chair on 2 L of supplemental oxygen via nasal cannula. Continues to have shortness of breath with exertion and activity. He has had a productive cough with white sputum that has been slightly blood tinged. Patient also noted to have bloody bowel movement yesterday. Patient is afebrile no further complaints. All labs and reports have been reviewed. Objective - Vital Signs Vital signs: Vital Signs Temp 97.5 F L 07/24/17 07:00 Pulse 76 07/24/17 08:03 Resp 18 07/24/17 07:00 BP 107/70 07/24/17 07:00 Pulse Ox 94 L 07/24/17 07:00 Intake & Output 07/23/17 07/24/17 07/24/17 18:59 06:59 18:59 Intake Total 240 Balance 240 Intake: Oral 240 Other: Voiding Method Toilet Toilet Toilet # Voids 2 1 - Exam GENERAL EXAM: Alert, comfortable in no apparent distress. HEAD: Slight skull formation abnormality, patient states is from cancer of the scalp. EYES: Normal reaction of pupils, equal size. NOSE: Clear with pink turbinates. THROAT: No erythema or exudates. NECK: No masses, no JVD. CHEST: No chest wall deformity. LUNGS: Lungs noted to be diminished bilaterally with some faint expiratory wheezing noted throughout. Bases diminished CVS: S1 and S2 normal with no audible mumurs, regular rhythm. ABDOMEN: No hepatosplenomegaly, normal bowel sounds, no guarding or rigidity. EXTREMITIES: +1 LLE edema noted, pedal pulses palpable. SKIN: Scalp dry with scabs. CENTRAL NERVOUS SYSTEM: No focal deficits, tone is normal in all 4 extremities. - Labs CBC & Chem 7: 07/23/17 06:43 07/23/17 06:43 Labs: Abnormal Lab Results - Last 24 Hours (Table) 07/23/17 07/23/17 07/24/17 Range/Units 16:47 20:54 07:16 POC Glucose (mg/dL) 117 H 217 H 147 H (75-99) mg/dL Assessment and Plan Assessment: Assessment Squamous cell carcinoma likely stage IV with multiple cavitary lesion/nodule bilaterally in the lung Anemia, likely related to anemia of chronic disease Squamous cell skin cancer Moderate protein calorie malnutrition with poor appetite and failure to thrive History of COPD History of diastolic congestive heart failure Plan: Plan, we'll follow on as needed basis call us if needed arise We will defer more definitive intervention to chemo to oncology services will follow as outpatient basis Agree with discharge planning to ECF In case patient discharged to ECF will recommend follow-up in outpatient setting Medications have been reviewed and will be continued as ordered. We will cont DuoNeb and budesonide via nebulizer. Continue with pulmonary hygiene, coughing and deep breathing exercises, and supportive care. Supplemental oxygen to maintain oxygen saturations of 92% or better. Continue nebulizer treatments. Patient encourage incentive spirometer. GI and DVT prophylaxis. We will continue to monitor labs/results and adjust treatment as necessary. Time with Patient: Less than 30
[2017-07-24 12:00] LABS: Glucose,Whole Blood 266 mg/dL (75-99)
[2017-07-24] MEDS: FOLIC ACID 1 MG TAB PO SCH (13:03)
[2017-07-24 15:21] VITALS: BP 100/67; PULSE 60; RESP 16
[2017-07-24 16:24] LABS: Glucose,Whole Blood 128 mg/dL (75-99)
[2017-07-24] MEDS: FUROSEMIDE 40 MG TAB PO SCH (16:44)
== END 2017-07-24 17:50 | DRG 167 ==
LOC: EC 14:37 → 5MS5E 16:27 → 5ONC 07-12 11:42
PROVIDERS: ADMIT Family Medicine; ATTEND Family Medicine
PROC: 0DB68ZX Excision of Stomach, Via Natural or Artificial Opening Endoscopic, Diagnostic (ICD-10-PCS; principal; 2017-07-14 13:30)
PROC: 0DBH8ZX Excision of Cecum, Via Natural or Artificial Opening Endoscopic, Diagnostic (ICD-10-PCS; principal; 2017-07-14 13:30)
PROC: 0B9C8ZX Drainage of Right Upper Lung Lobe, Via Natural or Artificial Opening Endoscopic, Diagnostic (ICD-10-PCS; 2017-07-17 08:20)
PROC: 0BDC8ZX Extraction of Right Upper Lung Lobe, Via Natural or Artificial Opening Endoscopic, Diagnostic (ICD-10-PCS; 2017-07-17 08:20)
DX: C78.02 Secondary malignant neoplasm of left lung (principal); C41.0 Malignant neoplasm of bones of skull and face; N17.9 Acute kidney failure, unspecified; E44.0 Moderate protein-calorie malnutrition; C79.31 Secondary malignant neoplasm of brain; I13.0 Hypertensive heart and chronic kidney disease with heart failure and stage 1 through stage 4 chronic kidney disease, or unspecified chronic kidney disease; I50.32 Chronic diastolic (congestive) heart failure; E87.1 Hypo-osmolality and hyponatremia; C79.51 Secondary malignant neoplasm of bone; I48.92 Unspecified atrial flutter; C79.89 Secondary malignant neoplasm of other specified sites; D62 Acute posthemorrhagic anemia; J44.0 Chronic obstructive pulmonary disease with (acute) lower respiratory infection; J44.1 Chronic obstructive pulmonary disease with (acute) exacerbation; C78.01 Secondary malignant neoplasm of right lung; C44.42 Squamous cell carcinoma of skin of scalp and neck; D63.8 Anemia in other chronic diseases classified elsewhere; E03.9 Hypothyroidism, unspecified; E11.22 Type 2 diabetes mellitus with diabetic chronic kidney disease; E11.65 Type 2 diabetes mellitus with hyperglycemia; E66.9 Obesity, unspecified; E78.5 Hyperlipidemia, unspecified; F03.90 Unspecified dementia, unspecified severity, without behavioral disturbance, psychotic disturbance, mood disturbance, and anxiety; G25.81 Restless legs syndrome; G47.33 Obstructive sleep apnea (adult) (pediatric); E11.42 Type 2 diabetes mellitus with diabetic polyneuropathy; J30.9 Allergic rhinitis, unspecified; I25.10 Atherosclerotic heart disease of native coronary artery without angina pectoris; K21.9 Gastro-esophageal reflux disease without esophagitis; K29.60 Other gastritis without bleeding; K57.90 Diverticulosis of intestine, part unspecified, without perforation or abscess without bleeding; K59.00 Constipation, unspecified; K63.5 Polyp of colon; N18.3 Chronic kidney disease, stage 3 (moderate); N40.0 Benign prostatic hyperplasia without lower urinary tract symptoms; R62.7 Adult failure to thrive; Z79.4 Long term (current) use of insulin; Z79.899 Other long term (current) drug therapy; Z80.6 Family history of leukemia; Z87.891 Personal history of nicotine dependence; Z92.3 Personal history of irradiation; Z95.0 Presence of cardiac pacemaker; Z99.81 Dependence on supplemental oxygen
CPT/HCPCS: 31624; 31628; 36415; 43239; 45380; 71045; 71250; 74022; 80048; 80053; 81003; 83036; 85025; 85027; 86850; 86900; 86901; 86920; 87070; 87102; 87116; 87205; 87206; 87252; 87496; 87498; 87502; 87529; 87541; 87634; 87798; 88108; 88305; 88341; 88342; 94640; 94760; 99285

== ENCOUNTER 2017-08-16 23:13 | Inpatient (IN) | payer MEDICARE, BC ==
[2017-08-16] MEDS ORDERED: SODIUM CHLORIDE 0.9% 1,000 ML IV STA (23:20)
[2017-08-16] MEDS ORDERED: SODIUM CHLORIDE 0.9% 500 ML IV STA (23:20)
--- NOTE | 2017-08-16 23:48 | ED ---
General Adult HPI - General Chief complaint: Shortness of Breath Stated complaint: Altered/KRISHNA-Lung Ca Pt Time Seen by Provider: 08/16/17 23:19 Source: patient, RN notes reviewed, old records reviewed Mode of arrival: wheelchair Limitations: altered mental status - History of Present Illness Initial comments: This is a 87-year-old male to the ER for evaluation. Patient is a for shortness of breath and anxiety. Chest pain. Possible altered mental state. Patient has significant medical history, underlying lung CA with multiple medical comorbidities. Patient has had radiation and chemotherapy. No recent treatments. No recent hospitalizations no fevers. Patient just complains of shortness of breath although at this time he denies any shortness of breath he states improved arrival to ER. Patient also having chest pain at this point in time he denies chest pain no headaches - Related Data Home Medications Medication Instructions Recorded Confirmed Aspirin EC [Ecotrin Low Dose] 81 mg PO [facility] 10/13/14 08/17/17 Folic Acid 1 mg PO DAILY@1300 10/13/14 08/17/17 Lisinopril [Zestril] 5 mg PO DAILY 10/13/14 08/17/17 Eagar-3 Fatty Acids/Fish Oil [Fish 1 cap PO DAILY@1300 08/24/15 08/17/17 Oil 1,000 mg Softgel] Potassium Chloride ER [K-Dur 20] 20 meq PO QA 08/24/15 08/17/17 metFORMIN HCL 1,000 mg PO BID 02/21/16 08/17/17 Fluticasone Nasal Hoopa [Flonase 2 spray EA NOSTRIL DAILY 03/25/16 08/17/17 Nasal Hoopa] Magnesium Oxide [Mag-Ox] 400 mg PO 03/25/16 08/17/17 Tamsulosin [Flomax] 0.4 mg PO 03/25/16 08/17/17 Gabapentin [Neurontin] 300 mg PO BID 08/11/16 08/17/17 Metoprolol Tartrate [Lopressor] 25 mg PO 08/11/16 08/17/17 Ferrous Sulfate [Iron (65 MG 325 mg PO DAILY 11/04/16 08/17/17 Elemental)] Levothyroxine Sodium [Synthroid] 100 mcg PO DAILY 01/04/17 08/17/17 Loratadine [Claritin] 10 mg PO DAILY@1300 01/04/17 08/17/17 Montelukast Sodium [Singulair] 10 mg PO DAILY 04/11/17 08/17/17 Cyanocobalamin [Vitamin B-12] 500 mcg PO DAILY@1300 05/08/17 08/17/17 Insulin Aspart [NovoLOG Flexpen] See Protocol SQ AC-TID 05/08/17 08/17/17 Ubidecarenone [Co Q-10] 200 mg PO DAILY@1300 05/08/17 08/17/17 Artificial Tears-Hypromellose 1 drops BOTH EYES TID PRN 05/09/17 08/17/17 [Artificial Tear Drops] Budesonide [Pulmicort] 0.5 mg INHALATION RT-BID 08/17/17 08/17/17 Budesonide/Formoterol Fumarate 2 puff INHALATION RT-BID 08/17/17 08/17/17 [Symbicort 160-4.5 Mcg Inhaler] HYDROcodone/APAP 5-325MG [Be[place]ont 1 tab PO Q4HR PRN 08/17/17 08/17/17 5-325] Ursodiol [Marcos] 250 mg PO HS 08/17/17 08/17/17 Furosemide [Lasix] 40 mg PO DAILY 08/18/17 08/18/17 Furosemide [Lasix] 80 mg PO DAILY 08/18/17 08/18/17 Allergies Allergy/AdvReac Type Severity Reaction Status Date / Time Ctlkbqn-Fiy-Toh Reductase Allergy Unknown Unknown Verified 08/16/17 23:29 Inhibitor lactose Allergy Nausea Verified 08/16/17 23:29 Iodinated Contrast- Oral and AdvReac shakes Verified 08/16/17 23:29 IV Dye [Iodinated Contrast Media - IV Dye] Review of Systems ROS Statement: Those systems with pertinent positive or pertinent negative responses have been documented in the HPI. ROS Other: All systems not noted in ROS Statement are negative. 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,"spots on lung" back pain, constipation History of Any Multi-Drug Resistant Organisms: None Reported Past Surgical History: Appendectomy, Cholecystectomy, Hernia Repair, Pacemaker, Tonsillectomy Additional Past Surgical History / Comment(s): lana CATARACTS WITH LENS IMPLANT, SKIN CANCER removed from head x3, thoracentesis Past Anesthesia/Blood Transfusion Reactions: No Reported Reaction Type of Cardiac Device: Permanent Pacemaker Device Placement Date:: 08/2015 Past Psychological History: Anxiety, Depression Smoking Status: Former smoker Past Alcohol Use History: None Reported Past Drug Use History: None Reported - Past Family History Mother Family Medical History: No Reported History, Cancer Additional Family Medical History / Comment(s): LEUKEMIA Father Additional Family Medical History / Comment(s): WOUNDED IN WW[employer], MULTIPLE INJURES -LIVED TILL AGE 89 Brother(s) Family Medical History: Cancer General Exam Limitations: altered mental status General appearance: alert, in no apparent distress Head exam: Present: atraumatic, normocephalic, normal inspection Eye exam: Present: normal appearance, PERRL, EOMI. Absent: scleral icterus, conjunctival injection, periorbital swelling ENT exam: Present: normal exam, mucous membranes moist Neck exam: Present: normal inspection. Absent: tenderness, meningismus, lymphadenopathy Respiratory exam: Present: normal lung sounds bilaterally. Absent: respiratory distress, wheezes, rales, rhonchi, stridor Cardiovascular Exam: Present: regular rate, normal rhythm, normal heart sounds. Absent: systolic murmur, diastolic murmur, rubs, gallop, clicks GI/Abdominal exam: Present: soft, normal bowel sounds. Absent: distended, tenderness, guarding, rebound, rigid Extremities exam: Present: normal inspection, full ROM, normal capillary refill. Absent: tenderness, pedal edema, joint swelling, calf tenderness Back exam: Present: normal inspection Neurological exam: Present: alert, oriented X3, CN II-XII intact Psychiatric exam: Present: normal affect, normal mood Skin exam: Present: warm, dry, intact, normal color. 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 Patient presents here for evaluation of significant shortness of breath, occasional complaints of chest pain. Patient to be admitted for further evaluation and observation. Magnesium and electronically replacement. - Lab Data Result diagrams: 08/21/17 05:45 08/21/17 05:45 Lab Results 08/16/17 08/16/17 08/16/17 Range/Units 23:30 23:30 23:30 WBC 13.8 H (3.8-10.6) k/uL RBC 3.61 L (4.30-5.90) m/uL Hgb 11.1 L (13.0-17.5) gm/dL Hct 34.6 L (39.0-53.0) % MCV 95.7 (80.0-100.0) fL MCH 30.9 (25.0-35.0) pg MCHC 32.2 (31.0-37.0) g/dL RDW 13.4 (11.5-15.5) % Plt Count 262 (150-450) k/uL Neutrophils % 85 % Lymphocytes % 7 % Monocytes % 5 % Eosinophils % 2 % Basophils % 0 % Neutrophils # 11.7 H (1.3-7.7) k/uL Lymphocytes # 1.0 (1.0-4.8) k/uL Monocytes # 0.7 (0-1.0) k/uL Eosinophils # 0.2 (0-0.7) k/uL Basophils # 0.0 (0-0.2) k/uL PT (9.0-12.0) sec INR (<1.2) APTT (22.0-30.0) sec Sodium 139 (137-145) mmol/L Potassium 4.2 (3.5-5.1) mmol/L Chloride 102 (98-107) mmol/L Carbon Dioxide 22 (22-30) mmol/L Anion Gap 15 mmol/L BUN 30 H (9-20) mg/dL Creatinine 1.50 H (0.66-1.25) mg/dL Est GFR (MDRD) Af Amer 54 (>60 ml/min/1.73 sqM) Est GFR (MDRD) Non-Af 44 (>60 ml/min/1.73 sqM) Glucose 337 H (74-99) mg/dL Plasma Lactic Acid Brooks (0.7-2.0) mmol/L Calcium 9.5 (8.4-10.2) mg/dL Phosphorus 3.5 (2.5-4.5) mg/dL Magnesium 1.1 L (1.6-2.3) mg/dL Total Bilirubin 0.4 (0.2-1.3) mg/dL AST 21 (17-59) U/L ALT 22 (21-72) U/L Alkaline Phosphatase 121 (38-126) U/L Total Creatine Kinase 30 L (55-170) U/L CK-MB (CK-2) 0.7 (0.0-2.4) ng/mL CK-MB (CK-2) Rel Index 2.3 Troponin I 0.020 (0.000-0.034) ng/mL NT-Pro-B Natriuret Pep pg/mL Total Protein 7.3 (6.3-8.2) g/dL Albumin 3.5 (3.5-5.0) g/dL 08/16/17 08/16/17 08/16/17 Range/Units 23:30 23:30 23:30 WBC (3.8-10.6) k/uL RBC (4.30-5.90) m/uL Hgb (13.0-17.5) gm/dL Hct (39.0-53.0) % MCV (80.0-100.0) fL MCH (25.0-35.0) pg MCHC (31.0-37.0) g/dL RDW (11.5-15.5) % Plt Count (150-450) k/uL Neutrophils % % Lymphocytes % % Monocytes % % Eosinophils % % Basophils % % Neutrophils # (1.3-7.7) k/uL Lymphocytes # (1.0-4.8) k/uL Monocytes # (0-1.0) k/uL Eosinophils # (0-0.7) k/uL Basophils # (0-0.2) k/uL PT 10.6 (9.0-12.0) sec INR 1.1 (<1.2) APTT 23.5 (22.0-30.0) sec Sodium (137-145) mmol/L Potassium (3.5-5.1) mmol/L Chloride (98-107) mmol/L Carbon Dioxide (22-30) mmol/L Anion Gap mmol/L BUN (9-20) mg/dL Creatinine (0.66-1.25) mg/dL Est GFR (MDRD) Af Amer (>60 ml/min/1.73 sqM) Est GFR (MDRD) Non-Af (>60 ml/min/1.73 sqM) Glucose (74-99) mg/dL Plasma Lactic Acid Brooks 1.8 (0.7-2.0) mmol/L Calcium (8.4-10.2) mg/dL Phosphorus (2.5-4.5) mg/dL Magnesium (1.6-2.3) mg/dL Total Bilirubin (0.2-1.3) mg/dL AST (17-59) U/L ALT (21-72) U/L Alkaline Phosphatase (38-126) U/L Total Creatine Kinase (55-170) U/L CK-MB (CK-2) (0.0-2.4) ng/mL CK-MB (CK-2) Rel Index Troponin I (0.000-0.034) ng/mL NT-Pro-B Natriuret Pep 379 pg/mL Total Protein (6.3-8.2) g/dL Albumin (3.5-5.0) g/dL - Radiology Data Radiology results: report reviewed (CT brain, CXR negative for acute disease), image reviewed Disposition Clinical Impression: Headache, Asthma with exacerbation, Chest pain, Hypomagnesemia, Altered mental state Disposition: ADMITTED IP TO THIS [facility] Condition: Good
[2017-08-16 23:57] LABS: Basophils % (A) 0 %; Eosinophils # (A) 0.2 k/uL (0-0.7); Eosinophils % (A) 2 %; HCT 34.6 % (39.0-53.0); HGB 11.1 gm/dL (13.0-17.5); Lymphocytes % (A) 7 %; MCH 30.9 pg (25.0-35.0); MCHC 32.2 g/dL (31.0-37.0); MCV 95.7 fL (80.0-100.0); Mean Platelet Volume 7.1; Monocytes # (A) 0.7 k/uL (0-1.0); Monocytes % (A) 5 %; Neutrophils # (A) 11.7 k/uL (1.3-7.7); Neutrophils % (A) 85 %; Platelet Count 262 k/uL (150-450); RBC 3.61 m/uL (4.30-5.90); RDW 13.4 % (11.5-15.5); WBC 13.8 k/uL (3.8-10.6)
[2017-08-17 00:16] LABS: INR 1.1 (<1.2); Partial Thromboplastin Time 23.5 sec (22.0-30.0); Prothrombin Time 10.6 sec (9.0-12.0)
[2017-08-17 00:17] LABS: Albumin 3.5 g/dL (3.5-5.0); Calcium 9.5 mg/dL (8.4-10.2); Magnesium 1.1 mg/dL (1.6-2.3); Phosphorus 3.5 mg/dL (2.5-4.5); Potassium 4.2 mmol/L (3.5-5.1); Total Bilirubin 0.4 mg/dL (0.2-1.3); Total Protein 7.3 g/dL (6.3-8.2)
[2017-08-17] MEDS ORDERED: MAGNESIUM OXIDE 400 MG TAB PO STA (00:37)
[2017-08-17] MEDS ORDERED: NITROGLYCERIN SL TABS 0.4 MG TAB SUBLINGUAL PRN (00:38)
--- NOTE | 2017-08-17 00:48 | XR ---
EXAMINATION TYPE: XR chest 2V DATE OF EXAM: 08/17/2017 COMPARISON: 07/17/2017 HISTORY: Chest pain TECHNIQUE: Frontal and lateral views of the chest are obtained. FINDINGS: Heart size is normal. There is no heart failure. There is some consolidation around the ri ght pulmonary hilum. This has increased slightly compared to last exam. Left lung is clear. Costophre cameron angles are clear. Thoracic aorta is atheromatous. There is no sign of pleural effusion. There is a left axillary pacemaker with the lead tips in the right ventricle. IMPRESSION: There is slight increased right perihilar infiltrate compared to last exam that may ana hugh progression of tumor. No heart failure.
--- NOTE | 2017-08-17 00:51 | CT ---
EXAMINATION TYPE: CT brain wo con DATE OF EXAM: 08/17/2017 COMPARISON: 03/07/2017 HISTORY: Prior on synapse, weakness, history of brain CA CT DLP: 892.10 mGycm Automated exposure control for dose reduction was used. FINDINGS: There is cerebral cortical atrophy. There is no mass effect nor midline shift. There is no sign of in tracranial hemorrhage. There is focal scalp soft tissue swelling in the left posterior temporal regio n. There is apparent left frontal old craniotomy. IMPRESSION: NO ACUTE INTRACRANIAL ABNORMALITY. LEFT FRONTAL BONE THINNING AND DESTRUCTION THAT IS PROBABLY AN OLD SURGICAL SITE. CLINICAL CORRELATION IS NEEDED. THERE IS DECREASE IN THE LEFT POSTERIOR TEMPORAL SCAL P SWELLING COMPARED TO OLD EXAM.
[2017-08-17 00:55] LABS: Creatine Kinase MB 0.7 ng/mL (0.0-2.4); Troponin I 0.02 ng/mL (0.000-0.034)
[2017-08-17 01:15] LABS: Appearance,Urine Clear (Clear); Bacteria,Urine Rare /hpf; Bilirubin,Urine Negative (Negative); Blood,Urine Negative (Negative); Color,Urine Yellow; Glucose,Urine (UA) 3+ (Negative); Hyaline Casts,Urine 10 /lpf (0-2); Ketones,Urine Negative (Negative); Leukocyte Esterase,Urine Negative (Negative); Mucus,Urine Rare /hpf; Nitrite,Urine Negative (Negative); Protein,Urine Trace (Negative); RBC,Urine <1 /hpf (0-5); Specific Gravity,Urine 1.013 (1.001-1.035); Squamous Epithelial Cell,Urine <1 /hpf (0-4); Urobilinogen,Urine <2.0 mg/dL (<2.0); WBC,Urine 1 /hpf (0-5)
[2017-08-17] MEDS: MAGNESIUM SULFATE-D5W PMX 1 GM in DEXTROSE/WATER 1 100ML.BAG IVPB SCH ×2 (01:15→03:36)
[2017-08-17 05:59] LABS: HCT 31.8 % (39.0-53.0); HGB 10.1 gm/dL (13.0-17.5); MCH 29.9 pg (25.0-35.0); MCHC 31.7 g/dL (31.0-37.0); MCV 94.3 fL (80.0-100.0); Mean Platelet Volume 7.2; Platelet Count 271 k/uL (150-450); RBC 3.37 m/uL (4.30-5.90); RDW 13.2 % (11.5-15.5); WBC 12.7 k/uL (3.8-10.6)
[2017-08-17 06:05] LABS: Glucose,Whole Blood 178 mg/dL (75-99)
[2017-08-17 06:18] LABS: Anion Gap 11 mmol/L; Blood Urea Nitrogen 25 mg/dL (9-20); Calcium 9.2 mg/dL (8.4-10.2); Carbon Dioxide 25 mmol/L (22-30); Chloride 103 mmol/L (98-107); Glucose 201 mg/dL (74-99); Magnesium 1.8 mg/dL (1.6-2.3); Potassium 3.9 mmol/L (3.5-5.1); Sodium 139 mmol/L (137-145)
[2017-08-17 06:38] LABS: Creatine Kinase MB 0.8 ng/mL (0.0-2.4)
[2017-08-17 06:44] LABS: Troponin I 0.057 ng/mL (0.000-0.034)
[2017-08-17] MEDS: HYDROcodone/APAP 10-325MG 1 EACH TAB PO PRN ×3 (08:52→19:45)
[2017-08-17] MEDS: ASPIRIN 325 MG TAB PO SCH (08:53)
[2017-08-17] MEDS: IPRATROPIUM-ALBUTEROL 3 ML NEB INHALATION PRN ×4 (08:54→20:50)
[2017-08-17 11:31] LABS: Glucose,Whole Blood 250 mg/dL (75-99)
[2017-08-17 11:45] LABS: Creatine Kinase MB 0.8 ng/mL (0.0-2.4)
[2017-08-17 11:53] LABS: Troponin I 0.05 ng/mL (0.000-0.034)
[2017-08-17] MEDS ORDERED: ARTIFICIAL TEARS OINTMENT 3.5 GM TUBE BOTH EYES PRN (14:46)
--- NOTE | 2017-08-17 15:14 | P.HPIM ---
History of Present Illness H&P Date: 08/17/17 Chief Complaint: Shortness of breath and anxiety This is an 87-year-old gentleman who presented emergency department complaining of shortness of breath. The patient states that he was living at a residential and was in a room with 3 other patients. He states that he didn't like that living situation and moved all of his belongings into a private room. He states that the nurses were upset with him. He apparently was having confusion at the residential per the medical record. The patient has an underlying history of cancer of the skin which was recently removed. The patient is a poor historian and apparently was at one point having some chest pain. The patient denies chest pain at this time. He did state that he was told there is something stuck in the back of his throat. He is unsure of who told him that. During the patient's last admission he was diagnosed with squamous cell lung cancer and was told that he is not a candidate for chemotherapy due to his functional status. 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,"spots on lung" back pain, constipation History of Any Multi-Drug Resistant Organisms: None Reported Past Surgical History: Appendectomy, Cholecystectomy, Hernia Repair, Pacemaker, Tonsillectomy Additional Past Surgical History / Comment(s): lana CATARACTS WITH LENS IMPLANT, SKIN CANCER removed from head x3, thoracentesis Past Anesthesia/Blood Transfusion Reactions: No Reported Reaction Type of Cardiac Device: Permanent Pacemaker Device Placement Date:: 08/2015 Past Psychological History: Anxiety, Depression Additional Psychological History / Comment(s): pt staying at private home care givers house. Smoking Status: Former smoker Past Alcohol Use History: None Reported Additional Past Alcohol Use History / Comment(s): started smoking at age 11. 1PPD. QUIT SMOKING AT AGE22. Past Drug Use History: None Reported - Past Family History Mother Family Medical History: No Reported History, Cancer Additional Family Medical History / Comment(s): LEUKEMIA Father Additional Family Medical History / Comment(s): WOUNDED IN WW1, MULTIPLE INJURES -LIVED TILL AGE 88 Brother(s) Family Medical History: Cancer Medications and Allergies Home Medications Medication Instructions Recorded Confirmed Type Aspirin EC [Ecotrin Low Dose] 81 mg PO [facility] 10/13/14 08/17/17 History Folic Acid 1 mg PO DAILY@1300 10/13/14 08/17/17 History Lisinopril [Zestril] 5 mg PO DAILY 10/13/14 08/17/17 History Omeprazole [PriLOSEC] 20 mg PO 10/13/14 08/17/17 History [place]-3 Fatty Acids/Fish Oil [Fish 1 cap PO DAILY@1300 08/24/15 08/17/17 History Oil 1,000 mg Softgel] Potassium Chloride ER [K-Dur 20] 20 meq PO [facility] 08/24/15 08/17/17 History metFORMIN HCL 1,000 mg PO [facility] 02/21/16 08/17/17 History Fluticasone Nasal [place] [Flonase 2 spray EA NOSTRIL DAILY 03/25/16 08/17/17 History Nasal [place]] Magnesium Oxide [Mag-Ox] 420 mg PO 03/25/16 08/17/17 History Tamsulosin [Flomax] 0.4 mg PO 03/25/16 08/17/17 History Gabapentin [Neurontin] 300 mg PO BID 08/11/16 08/17/17 History Insulin Glargine [Lantus] 30 unit SQ [facility] 08/11/16 08/17/17 History Metoprolol Tartrate [Lopressor] 25 mg PO 08/11/16 08/17/17 History Ferrous Sulfate [Iron (65 MG 325 mg PO 11/04/16 08/17/17 History Elemental)] Levothyroxine Sodium [Synthroid] 100 mcg PO DAILY 01/04/17 08/17/17 History Loratadine [Claritin] 10 mg PO DAILY@1300 01/04/17 08/17/17 History Furosemide [Lasix] 80 mg PO BID@0800,1400 03/07/17 08/17/17 History Montelukast Sodium [Singulair] 10 mg PO DAILY 04/11/17 08/17/17 History Cyanocobalamin [Vitamin B-12] 500 mcg PO DAILY@1300 05/08/17 08/17/17 History Insulin Aspart [NovoLOG Flexpen] See Protocol SQ AC-TID 05/08/17 08/17/17 History Ubidecarenone [Co Q-10] 200 mg PO DAILY@1300 05/08/17 08/17/17 History Artificial Tears-Hypromellose 1 drops BOTH EYES TID PRN 05/09/17 08/17/17 History [Artificial Tear Drops] HYDROcodone/APAP 10-325MG [[place] 1 tab PO Q4HR PRN 07/11/17 08/17/17 History 10-325] Ursodiol [Marcos] 08/17/17 History Allergies Allergy/AdvReac Type Severity Reaction Status Date / Time Brpkcyh-[id number]-Bjr Reductase Allergy Unknown Unknown Verified 08/16/17 23:29 Inhibitor lactose Allergy Nausea Verified 08/16/17 23:29 Iodinated Contrast- Oral and AdvReac shakes Verified 08/16/17 23:29 IV Dye [Iodinated Contrast Media - IV Dye] Physical Exam Osteopathic Statement: *. No significant issues noted on an osteopathic structural exam other than those noted in the History and Physical/Consult. Vitals: Vital Signs Temp Pulse Pulse Resp BP BP Pulse Ox 08/17/17 13:03 90 08/17/17 12:53 88 08/17/17 11:57 97.6 F 62 16 114/55 96 08/17/17 09:03 92 08/17/17 08:55 92 08/17/17 08:54 97.5 F L 85 16 142/66 95 08/17/17 04:00 16 08/17/17 01:17 90 18 155/68 98 08/17/17 01:05 97.3 F L 77 18 133/62 98 08/17/17 00:16 67 18 138/60 96 08/16/17 23:27 98.9 F 83 22 133/62 97 Intake and Output 08/16/17 08/17/17 08/17/17 22:59 06:59 14:59 Intake Total 500 478 Balance 500 478 Intake: IV 500 Magnesium Sulfate-D5w Pmx 100 1 gm In Dextrose/Water 1 100ml.bag @ 100 mls/hr IVPB Q1H ANNIE Rx#: [id number] Sodium Chloride 0.9% 1, 400 000 ml @ 100 mls/hr IV . Q10H STA Rx#:[id number] Oral 478 Other: Voiding Method Urinal Urinal # Voids 2 Weight 92.3 kg Gen.: Patient is alert and oriented 3, no acute distress Cardiovascular: Regular rate and rhythm, S1/S2 Lungs: Diminished breath sounds bilaterally Abdomen: Soft nontender nondistended positive bowel sounds Extremities: No edema Results CBC & Chem 7: 08/17/17 05:27 08/17/17 05:27 Labs: Abnormal Lab Results - Last 24 Hours (Table) 08/16/17 08/16/17 08/16/17 Range/Units 23:30 23:30 23:30 WBC 13.8 H (3.8-10.6) k/uL RBC 3.61 L (4.30-5.90) m/uL Hgb 11.1 L (13.0-17.5) gm/dL Hct 34.6 L (39.0-53.0) % Neutrophils # 11.7 H (1.3-7.7) k/uL BUN 30 H (9-20) mg/dL Creatinine 1.50 H (0.66-1.25) mg/dL Glucose 337 H (74-99) mg/dL POC Glucose (mg/dL) (75-99) mg/dL Hemoglobin A1c (4.0-6.0) % Magnesium 1.1 L (1.6-2.3) mg/dL Total Creatine Kinase 30 L (55-170) U/L Troponin I (0.000-0.034) ng/mL Urine Protein (Negative) Urine Glucose (UA) (Negative) Urine Bacteria (None) /hpf Hyaline Casts (0-2) /lpf Urine Mucus (None) /hpf 08/17/17 08/17/17 08/17/17 Range/Units 01:00 05:27 05:27 WBC (3.8-10.6) k/uL RBC (4.30-5.90) m/uL Hgb (13.0-17.5) gm/dL Hct (39.0-53.0) % Neutrophils # (1.3-7.7) k/uL BUN (9-20) mg/dL Creatinine (0.66-1.25) mg/dL Glucose (74-99) mg/dL POC Glucose (mg/dL) (75-99) mg/dL Hemoglobin A1c 8.0 H (4.0-6.0) % Magnesium (1.6-2.3) mg/dL Total Creatine Kinase 32 L (55-170) U/L Troponin I 0.057 H* (0.000-0.034) ng/mL Urine Protein Trace H (Negative) Urine Glucose (UA) 3+ H (Negative) Urine Bacteria Rare H (None) /hpf Hyaline Casts 10 H (0-2) /lpf Urine Mucus Rare H (None) /hpf 08/17/17 08/17/17 08/17/17 Range/Units 05:27 05:27 06:03 WBC 12.7 H (3.8-10.6) k/uL RBC 3.37 L (4.30-5.90) m/uL Hgb 10.1 L (13.0-17.5) gm/dL Hct 31.8 L (39.0-53.0) % Neutrophils # (1.3-7.7) k/uL BUN 25 H (9-20) mg/dL Creatinine (0.66-1.25) mg/dL Glucose 201 H (74-99) mg/dL POC Glucose (mg/dL) 178 H (75-99) mg/dL Hemoglobin A1c (4.0-6.0) % Magnesium (1.6-2.3) mg/dL Total Creatine Kinase (55-170) U/L Troponin I (0.000-0.034) ng/mL Urine Protein (Negative) Urine Glucose (UA) (Negative) Urine Bacteria (None) /hpf Hyaline Casts (0-2) /lpf Urine Mucus (None) /hpf 08/17/17 08/17/17 Range/Units 10:57 11:26 WBC (3.8-10.6) k/uL RBC (4.30-5.90) m/uL Hgb (13.0-17.5) gm/dL Hct (39.0-53.0) % Neutrophils # (1.3-7.7) k/uL BUN (9-20) mg/dL Creatinine (0.66-1.25) mg/dL Glucose (74-99) mg/dL POC Glucose (mg/dL) 250 H (75-99) mg/dL Hemoglobin A1c (4.0-6.0) % Magnesium (1.6-2.3) mg/dL Total Creatine Kinase 32 L (55-170) U/L Troponin I 0.050 H* (0.000-0.034) ng/mL Urine Protein (Negative) Urine Glucose (UA) (Negative) Urine Bacteria (None) /hpf Hyaline Casts (0-2) /lpf Urine Mucus (None) /hpf Microbiology - Last 24 Hours (Table) 08/17/17 01:00 Urine Culture - Preliminary Urine,Clean Catch Chest x-ray: report reviewed, image reviewed Thrombosis Risk Factor Assmnt - DVT/VTE Prophylaxis DVT/VTE Prophylaxis: Pharmacologic Prophylaxis ordered - Choose All That Apply Any of the Below Risk Factors Present?: Yes Each Factor Represents 1 point: Serious lung disease incl. pneumonia (< 1month) , Swollen legs (current) Each Risk Factor Represents 3 Points: Age 75 years or older Thrombosis Risk Factor Assessment Total Risk Factor Score: 5 Thrombosis Risk Factor Assessment Level: High Risk Assessment and Plan Assessment: Acute encephalopathy Squamous cell lung cancer, metastatic Moderate protein calorie malnutrition Iron deficiency anemia Diabetes mellitus type 2 Diastolic CHF, not acutely exacerbated Obesity CKD3 Hypertension History of SHAKIR Atrial flutter Hypothyroid Squamous cell sking cancer History of COPD, not acutely exacerbated CPAP nightly from home Consult oncology Consult cardiology Continue patient's home medications Duo nebs and Pulmicort Monitor labs GI and DVT prophylaxis Incentive spirometry and pulmonary hygiene Serial troponin and EKG Brain CT results reviewed Diabetic diet Consult PT and OT Consult social work and case management Consider hospice evaluation Time with Patient: Greater than 30
[2017-08-17] MEDS: GABAPENTIN 300 MG CAP PO SCH ×2 (15:40→22:05)
[2017-08-17] MEDS: METOPROLOL TARTRATE 25 MG TAB PO SCH (15:40)
[2017-08-17] MEDS: FERROUS SULFATE 325 MG TAB PO SCH (15:40)
[2017-08-17] MEDS: LISINOPRIL 5 MG TAB PO SCH (15:40)
[2017-08-17] MEDS: FOLIC ACID 1 MG TAB PO SCH (15:40)
[2017-08-17] MEDS: CYANOCOBALAMIN 500 MCG TAB PO SCH (15:40)
[2017-08-17] MEDS: LORATADINE 10 MG TAB PO SCH (15:40)
[2017-08-17] MEDS: PANTOPRAZOLE 40 MG TABLET PO SCH (15:40)
[2017-08-17 16:50] LABS: Glucose,Whole Blood 282 mg/dL (75-99)
[2017-08-17] MEDS: FLUTICASONE 50MCG/SPRAY NASAL 16GM EA NOSTRIL SCH (17:20)
[2017-08-17] MEDS: INSULIN ASPART 100 UNIT/ML 1 ML 10 ML VIAL SQ SCH (17:22)
[2017-08-17] MEDS: URSODIOL 300 MG CAP PO SCH (17:22)
[2017-08-17] MEDS: TAMSULOSIN 0.4 MG CAP.ER.24H PO SCH (17:22)
[2017-08-17] MEDS ORDERED: INSULIN DETEMIR 100 UNIT/ML 10 ML VIAL SQ SCH (21:00)
[2017-08-17 21:19] LABS: Glucose,Whole Blood 283 mg/dL (75-99)
[2017-08-17] MEDS: MONTELUKAST 10 MG TAB PO SCH (22:06)
[2017-08-18] MEDS: HEPARIN SODIUM,PORCINE 5,000 UNIT/ML 1 ML VIAL SQ SCH ×4 (00:04→22:03)
[2017-08-18] MEDS: HYDROcodone/APAP 10-325MG 1 EACH TAB PO PRN ×6 (00:07→20:55)
[2017-08-18 05:55] LABS: Glucose,Whole Blood 159 mg/dL (75-99)
[2017-08-18 06:40] LABS: Hypochromasia Slight; MCH 30.5 pg (25.0-35.0); MCHC 30.9 g/dL (31.0-37.0); MCV 98.5 fL (80.0-100.0); Mean Platelet Volume 7.1; Platelet Count 253 k/uL (150-450); RBC 2.94 m/uL (4.30-5.90); RDW 13.3 % (11.5-15.5); WBC 11.9 k/uL (3.8-10.6)
[2017-08-18 06:57] LABS: Potassium 3.9 mmol/L (3.5-5.1)
[2017-08-18] MEDS: LEVOTHYROXINE 100 MCG TAB PO SCH (06:59)
[2017-08-18] MEDS: FERROUS SULFATE 325 MG TAB PO SCH ×2 (06:59→16:20)
[2017-08-18] MEDS: metFORMIN 500 MG TAB PO SCH (06:59)
[2017-08-18] MEDS: PANTOPRAZOLE 40 MG TABLET PO SCH (06:59)
[2017-08-18] MEDS: URSODIOL 300 MG CAP PO SCH ×2 (06:59→16:20)
[2017-08-18] MEDS: INSULIN ASPART 100 UNIT/ML 1 ML 10 ML VIAL SQ SCH ×3 (07:07→17:20)
[2017-08-18] MEDS: FUROSEMIDE 80 MG TAB PO SCH ×2 (07:59→15:18)
[2017-08-18] MEDS: ASPIRIN 325 MG TAB PO SCH (07:59)
[2017-08-18] MEDS: FLUTICASONE 50MCG/SPRAY NASAL 16GM EA NOSTRIL SCH (07:59)
[2017-08-18] MEDS: GABAPENTIN 300 MG CAP PO SCH ×3 (08:00→20:55)
[2017-08-18] MEDS: POTASSIUM CHLORIDE ER 20 MEQ TAB.ER PO SCH (08:00)
[2017-08-18] MEDS: METOPROLOL TARTRATE 25 MG TAB PO SCH (08:00)
[2017-08-18] MEDS: LORATADINE 10 MG TAB PO SCH (08:00)
[2017-08-18] MEDS: MAGNESIUM OXIDE 400 MG TAB PO SCH (08:00)
[2017-08-18] MEDS: LISINOPRIL 5 MG TAB PO SCH (08:00)
[2017-08-18] MEDS: IPRATROPIUM-ALBUTEROL 3 ML NEB INHALATION PRN ×4 (08:29→20:22)
--- NOTE | 2017-08-18 10:34 | P.PN ---
Subjective Progress Note Date: 08/18/17 Principal diagnosis: Shortness of breath Patient seen and examined. Patient states he is feeling better today. He states that he is taking his medications. He is hoping to see Dr. Pearson today. He says his breathing is better today. He does have intermittent cough. Objective - Vital Signs Vital signs: Vital Signs Temp 97 F L 08/18/17 07:57 Pulse 86 08/18/17 08:40 Resp 17 08/18/17 08:00 BP 119/56 08/18/17 07:57 Pulse Ox 96 08/18/17 08:31 Intake & Output 08/17/17 08/18/17 08/18/17 18:59 06:59 18:59 Intake Total 835 712 Balance 835 712 Weight 94 kg Intake: Oral 835 712 Other: Voiding Method Urinal Urinal Urinal # Voids 2 2 - Exam Gen.: Patient is alert and oriented 3, no acute distress Cardiovascular: Regular rate and rhythm, S1/S2 Lungs: Diminished breath sounds bilaterally Abdomen: Soft nontender nondistended positive bowel sounds Extremities: No edema - Labs CBC & Chem 7: 08/18/17 05:40 08/18/17 05:40 Labs: Abnormal Lab Results - Last 24 Hours (Table) 08/17/17 08/17/17 08/17/17 Range/Units 05:27 10:57 11:26 WBC (3.8-10.6) k/uL RBC (4.30-5.90) m/uL Hgb (13.0-17.5) gm/dL Hct (39.0-53.0) % MCHC (31.0-37.0) g/dL BUN (9-20) mg/dL Creatinine (0.66-1.25) mg/dL Glucose (74-99) mg/dL POC Glucose (mg/dL) 250 H (75-99) mg/dL Hemoglobin A1c 8.0 H (4.0-6.0) % Total Creatine Kinase 32 L (55-170) U/L Troponin I 0.050 H* (0.000-0.034) ng/mL LDL Cholesterol, Calc (0-99) mg/dL HDL Cholesterol (40-60) mg/dL 02/08/18 02/08/18 02/09/18 Range/Units 16:48 21:17 05:40 WBC (3.8-10.6) k/uL RBC (4.30-5.90) m/uL Hgb (13.0-17.5) gm/dL Hct (39.0-53.0) % MCHC (31.0-37.0) g/dL BUN 21 H (9-20) mg/dL Creatinine 1.40 H (0.66-1.25) mg/dL Glucose 166 H (74-99) mg/dL POC Glucose (mg/dL) 282 H 283 H (75-99) mg/dL Hemoglobin A1c (4.0-6.0) % Total Creatine Kinase (55-170) U/L Troponin I (0.000-0.034) ng/mL LDL Cholesterol, Calc 104 H (0-99) mg/dL HDL Cholesterol 34 L (40-60) mg/dL 08/18/17 08/18/17 Range/Units 05:40 05:53 WBC 11.9 H (3.8-10.6) k/uL RBC 2.94 L (4.30-5.90) m/uL Hgb 9.0 L (13.0-17.5) gm/dL Hct 29.0 L (39.0-53.0) % MCHC 30.9 L (31.0-37.0) g/dL BUN (9-20) mg/dL Creatinine (0.66-1.25) mg/dL Glucose (74-99) mg/dL POC Glucose (mg/dL) 159 H (75-99) mg/dL Hemoglobin A1c (4.0-6.0) % Total Creatine Kinase (55-170) U/L Troponin I (0.000-0.034) ng/mL LDL Cholesterol, Calc (0-99) mg/dL HDL Cholesterol (40-60) mg/dL Microbiology - Last 24 Hours (Table) 08/17/17 01:00 Urine Culture - Preliminary Urine,Clean Catch Assessment and Plan Assessment: Acute encephalopathy Squamous cell lung cancer, metastatic Moderate protein calorie malnutrition Iron deficiency anemia Diabetes mellitus type 2 Diastolic CHF, not acutely exacerbated Obesity CKD3 Hypertension History of SHAKIR Atrial flutter Hypothyroid Squamous cell sking cancer History of COPD, not acutely exacerbated CPAP nightly from home Consult oncology Consult cardiology Continue patient's home medications Duo nebs and Pulmicort Monitor labs GI and DVT prophylaxis Incentive spirometry and pulmonary hygiene Serial troponin and EKG Brain CT results reviewed Diabetic diet PT and OT Social work and case management Consider hospice evaluation Monitor renal function Increase Levemir to 35 units Qhs
[2017-08-18 11:41] LABS: Glucose,Whole Blood 141 mg/dL (75-99)
[2017-08-18] MEDS: FOLIC ACID 1 MG TAB PO SCH (11:58)
[2017-08-18] MEDS: CYANOCOBALAMIN 500 MCG TAB PO SCH (11:58)
--- NOTE | 2017-08-18 14:20 | P.PN ---
Progress Note - Text Progress Note Date: 08/18/[address] Fletcher, the patient previously decided on no treatment and hospice evaluation. At the time there was no bed available at the hospice house , patient will need placement and is apparently not able to go back to the [facility] that he came from.
--- NOTE | 2017-08-18 15:18 | P.CRDCN ---
History of Present Illness Consult date: 08/18/17 Requesting physician: Naomi Clinton Reason for Consult (text): elevated troponin Chief complaint: altered mental status History of present illness: This is a pleasantly confused 79-year-old gentleman who follows with Dr. Burnette in the office. Has a known history of diabetes, hypertension, hyperlipidemia, skin CA, squamous cell carcinoma lung for which she is not a candidate for chemotherapy due to his poor functional capacity, and permanent pacemaker. Patient is confused therefore HPI was obtained from the chart. Apparently he presented to the emergency department with complaints of shortness of breath as well as some confusion. And apparently at some point was having some chest pain. EKG on admission showed ventricular paced rhythm. Labs showed a BNP of 379, BUN 21 and creatinine 1.4 and troponins of 0.020, 0.050 and 0.057. Chest x -ray on admission showed slightly increased right perihilar infiltrate compared to last exam that may indicate progression of tumor, no heart failure. Upon examination, patient is sitting up on the side of the bed. Obtaining review of systems, patient answered yes to all complaints. He complains of dizziness, chest discomfort, lower extremity edema, palpitations, shortness of breath and cough. 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,"spots on lung" back pain, constipation History of Any Multi-Drug Resistant Organisms: None Reported Past Surgical History: Appendectomy, Cholecystectomy, Hernia Repair, Pacemaker, Tonsillectomy Additional Past Surgical History / Comment(s): lana CATARACTS WITH LENS IMPLANT, SKIN CANCER removed from head x3, thoracentesis Past Anesthesia/Blood Transfusion Reactions: No Reported Reaction Type of Cardiac Device: Permanent Pacemaker Device Placement Date:: 08/2015 Past Psychological History: Anxiety, Depression Additional Psychological History / Comment(s): pt staying at private home care givers house. Smoking Status: Former smoker Past Alcohol Use History: None Reported Additional Past Alcohol Use History / Comment(s): started smoking at age 11. 1PPD. QUIT SMOKING AT AGE22. Past Drug Use History: None Reported - Past Family History Mother Family Medical History: No Reported History, Cancer Additional Family Medical History / Comment(s): LEUKEMIA Father Additional Family Medical History / Comment(s): WOUNDED IN WW1, MULTIPLE INJURES -LIVED TILL AGE 89 Brother(s) Family Medical History: Cancer Medications and Allergies Home Medications Medication Instructions Recorded Confirmed Type Aspirin EC [Ecotrin Low Dose] 81 mg PO [facility] 10/13/14 08/17/17 History Folic Acid 1 mg PO DAILY@1300 10/13/14 08/17/17 History Lisinopril [Zestril] 5 mg PO DAILY 10/13/14 08/17/17 History [place]-3 Fatty Acids/Fish Oil [Fish 1 cap PO DAILY@1300 08/24/15 08/17/17 History Oil 1,000 mg Softgel] Potassium Chloride ER [K-Dur 20] 20 meq PO [facility] 08/24/15 08/17/17 History metFORMIN HCL 1,000 mg PO BID 02/21/16 08/17/17 History Fluticasone Nasal Halma [Flonase 2 spray EA NOSTRIL DAILY 03/25/16 08/17/17 History Nasal Halma] Magnesium Oxide [Mag-Ox] 400 mg PO 03/25/16 08/17/17 History Tamsulosin [Flomax] 0.4 mg PO 03/25/16 08/17/17 History Gabapentin [Neurontin] 300 mg PO BID 08/11/16 08/17/17 History Metoprolol Tartrate [Lopressor] 25 mg PO 08/11/16 08/17/17 History Ferrous Sulfate [Iron (65 MG 325 mg PO DAILY 11/04/16 08/17/17 History Elemental)] Levothyroxine Sodium [Synthroid] 100 mcg PO DAILY 01/04/17 08/17/17 History Loratadine [Claritin] 10 mg PO DAILY@1300 01/04/17 08/17/17 History Montelukast Sodium [Singulair] 10 mg PO DAILY 04/11/17 08/17/17 History Cyanocobalamin [Vitamin B-12] 500 mcg PO DAILY@1300 05/08/17 08/17/17 History Insulin Aspart [NovoLOG Flexpen] See Protocol SQ AC-TID 05/08/17 08/17/17 History Ubidecarenone [Co Q-10] 200 mg PO DAILY@1300 05/08/17 08/17/17 History Artificial Tears-Hypromellose 1 drops BOTH EYES TID PRN 05/09/17 08/17/17 History [Artificial Tear Drops] Budesonide [Pulmicort] 0.5 mg INHALATION RT-BID 08/17/17 08/17/17 History Budesonide/Formoterol Fumarate 2 puff INHALATION RT-BID 08/17/17 08/17/17 History [Symbicort 160-4.5 Mcg Inhaler] HYDROcodone/APAP 5-325MG [[place] 1 tab PO Q4HR PRN 08/17/17 08/17/17 History 5-325] Ursodiol [Marcos] 250 mg PO HS 08/17/17 08/17/17 History Furosemide [Lasix] 40 mg PO DAILY 08/18/17 08/18/17 History Furosemide [Lasix] 80 mg PO DAILY 08/18/17 08/18/17 History Allergies Allergy/AdvReac Type Severity Reaction Status Date / Time [id number] Reductase Allergy Unknown Unknown Verified 08/16/17 23:29 Inhibitor lactose Allergy Nausea Verified 08/16/17 23:29 Iodinated Contrast- Oral and AdvReac shakes Verified 08/16/17 23:29 IV Dye [Iodinated Contrast Media - IV Dye] Physical Exam Vitals: Vital Signs Temp Pulse Pulse Resp BP Pulse Ox 08/18/17 12:15 80 08/18/17 12:07 84 08/18/17 11:56 64 17 145/63 100 08/18/17 08:40 86 08/18/17 08:31 82 96 08/18/17 08:00 63 17 08/18/17 07:57 97 F L 63 17 119/56 97 08/18/17 04:00 96.0 F L 66 18 101/51 97 08/18/17 00:00 96.0 F L 66 18 101/57 97 08/17/17 21:02 90 16 08/17/17 20:50 94 16 08/17/17 20:00 96.0 F L 60 20 114/57 95 08/17/17 16:41 97.6 F 71 16 108/52 84 L 08/17/17 16:23 92 16 08/17/17 16:13 90 16 98 08/17/17 13:03 90 Intake and Output 08/17/17 08/18/17 08/18/17 22:59 06:59 14:59 Intake Total 357 712 Output Total 300 Balance 357 412 Intake: Oral 357 712 Output: Urine 300 Other: Voiding Method Urinal Urinal Urinal # Voids 2 Weight 94 kg PHYSICAL EXAMINATION: HEENT: Pupils equal, round. Neck is supple. There is no elevated jugular venous pressure. HEART EXAMINATION: Heart sounds regular, S1 and S2 with systolic murmur. CHEST EXAMINATION: Lungs are clear to auscultation and precussion. No chest wall tenderness is noted on palpation or with deep breathing. ABDOMEN: Soft, nontender. Bowel sounds are heard. No organomegaly noted. EXTREMITIES: 2+ peripheral pulses with no evidence of peripheral edema and no calf tenderness noted. NEUROLOGIC patient is awake, alert and oriented to person and place, poor short- term memory with confusion noted. . Results 08/18/17 05:40 08/18/17 05:40 Lipids 08/18/17 Range/Units 05:40 Triglycerides 113 (<150) mg/dL Cholesterol 161 (<200) mg/dL HDL Cholesterol 34 L (40-60) mg/dL CBC 08/18/17 Range/Units 05:40 WBC 11.9 H (3.8-10.6) k/uL RBC 2.94 L (4.30-5.90) m/uL Hgb 9.0 L (13.0-17.5) gm/dL Hct 29.0 L (39.0-53.0) % Plt Count 253 (150-450) k/uL Comprehensive Metabolic Panel 08/18/17 Range/Units 05:40 Sodium 138 (137-145) mmol/L Potassium 3.9 (3.5-5.1) mmol/L Chloride 105 (98-107) mmol/L Carbon Dioxide 26 (22-30) mmol/L BUN 21 H (9-20) mg/dL Creatinine 1.40 H (0.66-1.25) mg/dL Glucose 166 H (74-99) mg/dL Calcium 9.0 (8.4-10.2) mg/dL Current Medications Generic Name Dose Route Start Last Admin Trade Name Freq PRN Reason Stop Dose Admin Hydrocodone Bitart/Acetaminophen 1 each 08/17/17 08:20 08/18/17 11:58 [place] 10 PO 1 each Q4HR PRN Administration Pain Albuterol/Ipratropium 3 ml 08/17/17 00:38 08/18/17 12:05 Duoneb 0.5 Mg-3 Mg/3 Ml Soln INHALATION 3 ml RT-Q4H PRN Administration Shortness Of Breath Or Wheezing Aspirin 325 mg 08/17/17 09:00 08/18/17 07:59 Aspirin PO 325 mg DAILY [facility] Administration Cyanocobalamin 500 mcg 08/17/17 16:00 08/18/17 11:58 Vitamin B-12 PO 500 mcg DAILY@1200 [facility] Administration Ferrous Sulfate 325 mg 08/17/17 17:30 08/18/17 06:59 Feosol PO 325 mg BID-W/MEALS [facility] Administration Fluticasone Propionate 2 spray 08/17/17 15:00 08/18/17 07:59 Flonase Nasal Halma EA NOSTRIL Not Given DAILY [facility] Folic Acid 1 mg 08/17/17 16:00 08/18/17 11:58 Folic Acid PO 1 mg DAILY@1200 [facility] Administration Furosemide 80 mg 08/18/17 08:00 08/18/17 07:59 Lasix PO 80 mg BID@0800,1400 [facility] Administration Gabapentin 300 mg 08/17/17 16:00 08/18/17 08:00 Neurontin PO 300 mg TID [facility] Administration Heparin Sodium (Porcine) 5,000 unit 08/18/17 00:00 08/18/17 07:59 Heparin SQ 5,000 unit Q8HR [facility] Administration Insulin Aspart 0 unit 08/17/17 17:30 08/18/17 11:58 Novolog SQ 1 unit AC-TID [facility] Administration Protocol Insulin Detemir 35 unit 08/18/17 21:00 Levemir SQ HS [facility] Levothyroxine Sodium 100 mcg 08/18/17 06:30 08/18/17 06:59 Synthroid PO 100 mcg DAILY@0630 [facility] Administration Lisinopril 5 mg 08/17/17 15:00 08/18/17 08:00 Zestril PO 5 mg DAILY [facility] Administration Loratadine 10 mg 08/17/17 15:00 08/18/17 08:00 Claritin PO 10 mg DAILY [facility] Administration Magnesium Oxide 400 mg 08/18/17 09:00 08/18/17 08:00 Mag-Ox PO 400 mg DAILY [facility] Administration Metformin HCl 1,000 mg 08/18/17 07:30 08/18/17 06:59 Glucophage PO 1,000 mg W/BRKFST [facility] Administration Metoprolol Tartrate 25 mg 08/17/17 16:00 08/18/17 08:00 Lopressor PO 25 mg DAILY [facility] Administration Montelukast Sodium 10 mg 08/17/17 21:00 08/17/17 22:06 Singulair PO 10 mg HS [facility] Administration Morphine Sulfate 4 mg 08/17/17 00:38 Morphine Sulfate (Inj) IV Q5M PRN Chest Pain Multi-Ingred Cream/Lotion/Oil/Oint 1 applic 08/17/17 14:46 Lubrifresh Pm Ointment BOTH EYES TID PRN Dry Eye(s) Nitroglycerin 0.4 mg 08/17/17 00:38 Nitrostat SUBLINGUAL Q5M PRN Chest Pain Pantoprazole Sodium 40 mg 08/17/17 15:00 08/18/17 06:59 Protonix PO 40 mg AC-BRKFST [facility] Administration Potassium Chloride 20 meq 08/18/17 09:00 08/18/17 08:00 K-Dur 20 PO 20 meq DAILY [facility] Administration Tamsulosin HCl 0.4 mg 08/17/17 18:30 08/17/17 17:22 Flomax PO 0.4 mg PC-SUPPER [facility] Administration Ursodiol 300 mg 08/17/17 17:30 08/18/17 06:59 Actigall PO 300 mg BID-W/MEALS [facility] Administration Intake and Output 08/17/17 08/18/17 08/18/17 22:59 06:59 14:59 Intake Total 357 712 Output Total 300 Balance 357 412 Intake: Oral 357 712 Output: Urine 300 Other: Voiding Method Urinal Urinal Urinal # Voids 2 Weight 94 kg 08/18/17 05:40 08/18/17 05:40 Assessment and Plan Assessment: #1 squamous cell lung cancer, per previous admission records is not a candidate for chemotherapy #2 altered mental status #3 chest pain, atypical #4 hypertension #5 mild troponin leak, not consistent with acute coronary syndrome Plan: From cardiology's perspective, we would recommend medical therapy. We will continue to follow the patient provide further recommendations accordingly. [employer] note has been reviewed, I agree with a documented findings and plan of care. Patient was seen and examined.
[2017-08-18 17:10] LABS: Glucose,Whole Blood 141 mg/dL (75-99)
[2017-08-18] MEDS: TAMSULOSIN 0.4 MG CAP.ER.24H PO SCH (17:20)
[2017-08-18] MEDS: MONTELUKAST 10 MG TAB PO SCH (20:56)
[2017-08-18 21:11] LABS: Glucose,Whole Blood 220 mg/dL (75-99)
[2017-08-18] MEDS: INSULIN DETEMIR 100 UNIT/ML 10 ML VIAL SQ SCH (22:03)
[2017-08-19] MEDS: HYDROcodone/APAP 10-325MG 1 EACH TAB PO PRN ×4 (04:33→21:09)
[2017-08-19 05:40] LABS: Glucose,Whole Blood 148 mg/dL (75-99)
[2017-08-19] MEDS: IPRATROPIUM-ALBUTEROL 3 ML NEB INHALATION PRN ×4 (06:58→19:10)
[2017-08-19 07:01] LABS: Basophils # (A) 0.1 k/uL (0-0.2); Basophils % (A) 1 %; Eosinophils # (A) 0.6 k/uL (0-0.7); Eosinophils % (A) 5 %; HCT 30.2 % (39.0-53.0); HGB 9.3 gm/dL (13.0-17.5); Lymphocytes % (A) 16 %; MCH 30.1 pg (25.0-35.0); MCHC 30.7 g/dL (31.0-37.0); Mean Platelet Volume 7.4; Monocytes # (A) 0.9 k/uL (0-1.0); Monocytes % (A) 8 %; Neutrophils # (A) 8.6 k/uL (1.3-7.7); Neutrophils % (A) 71 %; Platelet Count 263 k/uL (150-450); RBC 3.09 m/uL (4.30-5.90); RDW 13.3 % (11.5-15.5); WBC 12.1 k/uL (3.8-10.6)
[2017-08-19 07:10] LABS: Albumin 2.9 g/dL (3.5-5.0); Calcium 9.1 mg/dL (8.4-10.2); Potassium 4.1 mmol/L (3.5-5.1); Total Bilirubin 0.5 mg/dL (0.2-1.3); Total Protein 6.2 g/dL (6.3-8.2)
[2017-08-19] MEDS: metFORMIN 500 MG TAB PO SCH (07:15)
[2017-08-19] MEDS: LEVOTHYROXINE 100 MCG TAB PO SCH (07:15)
[2017-08-19] MEDS: PANTOPRAZOLE 40 MG TABLET PO SCH (07:15)
[2017-08-19] MEDS: FERROUS SULFATE 325 MG TAB PO SCH ×2 (07:15→17:16)
[2017-08-19] MEDS: URSODIOL 300 MG CAP PO SCH ×2 (07:15→17:16)
[2017-08-19] MEDS: INSULIN ASPART 100 UNIT/ML 1 ML 10 ML VIAL SQ SCH ×3 (07:17→17:15)
[2017-08-19] MEDS: FLUTICASONE 50MCG/SPRAY NASAL 16GM EA NOSTRIL SCH (08:10)
[2017-08-19] MEDS: LISINOPRIL 5 MG TAB PO SCH (08:10)
[2017-08-19] MEDS: POTASSIUM CHLORIDE ER 20 MEQ TAB.ER PO SCH (08:10)
[2017-08-19] MEDS: CYANOCOBALAMIN 500 MCG TAB PO SCH (08:10)
[2017-08-19] MEDS: MAGNESIUM OXIDE 400 MG TAB PO SCH (08:10)
[2017-08-19] MEDS: GABAPENTIN 300 MG CAP PO SCH ×3 (08:10→21:09)
[2017-08-19] MEDS: LORATADINE 10 MG TAB PO SCH (08:10)
[2017-08-19] MEDS: FOLIC ACID 1 MG TAB PO SCH (08:10)
[2017-08-19] MEDS: HEPARIN SODIUM,PORCINE 5,000 UNIT/ML 1 ML VIAL SQ SCH ×3 (08:10→23:45)
[2017-08-19] MEDS: FUROSEMIDE 80 MG TAB PO SCH ×2 (08:10→15:31)
[2017-08-19] MEDS: ASPIRIN 325 MG TAB PO SCH (08:10)
[2017-08-19] MEDS: METOPROLOL TARTRATE 25 MG TAB PO SCH (08:10)
--- NOTE | 2017-08-19 09:05 | ECHOF ---
Referral Reason:chest pain, shortness of breath MEASUREMENTS -------- HEIGHT: 162.6 cm WEIGHT: 93.9 kg BP: 145/63 RVIDd: 3.0 cm (< 3.3) IVSd: 1.1 cm (0.6 - 1.1) LVIDd: 4.7 cm (3.9 - 5.3) LVPWd: 1.1 cm (0.6 - 1.1) IVSs: 1.3 cm LVIDs: 4.4 cm LVPWs: 0.9 cm LA Diam: 3.2 cm (2.7 - 3.8) LAESV Index (A-L): 22.69 ml/m Ao Diam: 3.7 cm (2.0 - 3.7) AV Cusp: 1.0 cm (1.5 - 2.6) LA Diam: 3.7 cm (2.7 - 3.8) MV EXCURSION: 17.701 mm (> 18.000) MV EF SLOPE: 75 mm/s (70 - 150) EPSS: 0.6 cm MV E Murphy: 0.96 m/s MV DecT: 358 ms MV A Murphy: 1.22 m/s MV E/A Ratio: 0.79 AV maxP.20 mmHg AV meanP.77 mmHg RAP: 5.00 mmHg RVSP: 24.85 mmHg FINDINGS -------- Paced rhythm. This was a technically adequate study. The left ventricular size is normal. There is borderline concentric left ventricular hypertrophy. Overall left ventricular systolic function is mild-moderately impaired with, an EF between 40 - 45 % . The right ventricle is mildly enlarged. Normal LA size by volume 22+/-6 ml/m2. The right atrial size is normal. There is mild to moderate aortic valve sclerosis. Peak/mean gradient across the Aortic Valve is 15. 20mmHg / 8.77mmHg. Aov is stenotic with decrease opening. Mild mitral annular calcification present. Mild mitral regurgitation is present. Mild tricuspid regurgitation present. There is no evidence of pulmonary hypertension. The right v entricular systolic pressure, as measured by Doppler, is 24.85mmHg. Trace/mild (physiologic) pulmonic regurgitation. The aortic root size is normal. There is no pericardial effusion. CONCLUSIONS -------- 1. The left ventricular size is normal. 2. There is borderline concentric left ventricular hypertrophy. 3. Overall left ventricular systolic function is mild-moderately impaired with, an EF between 40 - 45 %. 4. The right ventricle is mildly enlarged. 5. There is mild to moderate aortic valve sclerosis. 6. Peak/mean gradient across the Aortic Valve is 15.20mmHg / 8.77mmHg. 7. Aov is stenotic with decrease opening. 8. Mild mitral annular calcification present. 9. Mild mitral regurgitation is present. 10. Mild tricuspid regurgitation present. 11. There is no evidence of pulmonary hypertension. 12. The right ventricular systolic pressure, as measured by Doppler, is 24.85mmHg. 13. Trace/mild (physiologic) pulmonic regurgitation. 14. The aortic root size is normal. 15. There is no pericardial effusion. GROUND CONTROL APPROACH TECHNICIAN: Deloris De Leon RDCS
[2017-08-19] MEDS ORDERED: HYDROCORTISONE 1% CREAM 30 GM TUBE TOPICAL PRN (11:38)
[2017-08-19 12:08] LABS: Glucose,Whole Blood 142 mg/dL (75-99)
--- NOTE | 2017-08-19 15:06 | P.PN ---
Subjective Progress Note Date: 08/19/17 This is a pleasantly confused 88-year-old gentleman who follows with Dr. Burnette in the office. Has a known history of diabetes, hypertension, hyperlipidemia, skin CA, squamous cell carcinoma lung for which she is not a candidate for chemotherapy due to his poor functional capacity, and permanent pacemaker. Patient is confused therefore HPI was obtained from the chart. Apparently he presented to the emergency department with complaints of shortness of breath as well as some confusion. And apparently at some point was having some chest pain. EKG on admission showed ventricular paced rhythm. Labs showed a BNP of 379, BUN 21 and creatinine 1.4 and troponins of 0.020, 0.050 and 0.057. Chest x -ray on admission showed slightly increased right perihilar infiltrate compared to last exam that may indicate progression of tumor, no heart failure. Upon examination, patient is sitting up on the side of the bed. He seems to be a little more alert and oriented state. Answering most questions appropriately. He says he is feeling quite a bit better. He's been up ambulating in the halls without difficulties. Objective - Vital Signs Vital signs: Vital Signs Temp 96.6 F L 08/19/17 11:57 Pulse 71 08/19/17 11:57 Resp 18 08/19/17 11:57 BP 89/51 08/19/17 11:57 Pulse Ox 92 L 08/19/17 11:57 Intake & Output 08/18/17 08/19/17 08/19/17 18:59 06:59 18:59 Intake Total 1424 Output Total 300 750 Balance 1124 -750 Weight 83.9 kg Intake: Oral 1424 Output: Urine 300 750 Other: Voiding Method Urinal Urinal Urinal - Exam PHYSICAL EXAMINATION: HEENT: Pupils equal, round. Neck is supple. There is no elevated jugular venous pressure. HEART EXAMINATION: Heart sounds regular, S1 and S2 with systolic murmur. CHEST EXAMINATION: Lungs are clear to auscultation and precussion. No chest wall tenderness is noted on palpation or with deep breathing. ABDOMEN: Soft, nontender. Bowel sounds are heard. No organomegaly noted. EXTREMITIES: 2+ peripheral pulses with no evidence of peripheral edema and no calf tenderness noted. NEUROLOGIC patient is awake, alert and oriented x3 with poor short-term memory - Labs CBC & Chem 7: 08/19/17 05:21 02/10/18 05:21 Labs: Abnormal Lab Results - Last 24 Hours (Table) 08/18/17 08/18/17 08/19/17 Range/Units 16:47 21:00 05:21 WBC 12.1 H (3.8-10.6) k/uL RBC 3.09 L (4.30-5.90) m/uL Hgb 9.3 L (13.0-17.5) gm/dL Hct 30.2 L (39.0-53.0) % MCHC 30.7 L (31.0-37.0) g/dL Neutrophils # 8.6 H (1.3-7.7) k/uL BUN (9-20) mg/dL Creatinine (0.66-1.25) mg/dL Glucose (74-99) mg/dL POC Glucose (mg/dL) 141 H 220 H (75-99) mg/dL Total Protein (6.3-8.2) g/dL Albumin (3.5-5.0) g/dL 08/19/17 08/19/17 08/19/17 Range/Units 05:21 05:33 11:37 WBC (3.8-10.6) k/uL RBC (4.30-5.90) m/uL Hgb (13.0-17.5) gm/dL Hct (39.0-53.0) % MCHC (31.0-37.0) g/dL Neutrophils # (1.3-7.7) k/uL BUN 21 H (9-20) mg/dL Creatinine 1.50 H (0.66-1.25) mg/dL Glucose 145 H (74-99) mg/dL POC Glucose (mg/dL) 148 H 142 H (75-99) mg/dL Total Protein 6.2 L (6.3-8.2) g/dL Albumin 2.9 L (3.5-5.0) g/dL Microbiology - Last 24 Hours (Table) 08/17/17 01:00 Urine Culture - Final Urine,Clean Catch Assessment and Plan Assessment: #1 squamous cell lung cancer, per previous admission records is not a candidate for chemotherapy #2 altered mental status #3 chest pain, atypical #4 hypertension #5 mild troponin leak, not consistent with acute coronary syndrome Plan: From cardiology's perspective, we would recommend medical therapy. Echocardiogram was reviewed and showed mild to moderately impaired LV systolic function with an ejection fraction between 40-45% with mild to moderate aortic valve sclerosis and mild mitral regurgitation. No further cardiac workup at this time. We will follow the patient on an as-needed basis. Please do not hesitate to contact us with questions. SHOE CLEANER note has been reviewed, I agree with a documented findings and plan of care. Patient was seen and examined.
--- NOTE | 2017-08-19 15:20 | PN ---
PROGRESS NOTE DATE OF SERVICE: August 19, 2017. He has been hemodynamically stable. He feels weak overall and is wanting to see Dr. Pearson to discuss options as far as lung cancer treatment goes. On physical examination, his blood pressure is 90/51, respiratory rate of 18, pulse rate of 71, temperature 96.6 degrees Fahrenheit. HEENT is unremarkable. Chest reveals decreased breath sounds. Prolonged expiration. No clear wheeze. Cardiovascular system is S1, S2. Abdomen is soft. There is no edema. IMPRESSION: At this time is: 1. Lung cancer with metastatic disease. 2. Medical debility. 3. Metabolic encephalopathy. 4. Moderate protein calorie malnutrition. 5. Atrial flutter. Continue supportive care. Increase activity level. Continue him on his current medications. Have him seen by physical medicine and rehab and Oncology. Increase his activity level. LIZZY / SAPNA: [id number] /
[2017-08-19 17:03] LABS: Glucose,Whole Blood 113 mg/dL (75-99)
[2017-08-19] MEDS: TAMSULOSIN 0.4 MG CAP.ER.24H PO SCH (17:16)
[2017-08-19] MEDS: MONTELUKAST 10 MG TAB PO SCH (21:09)
[2017-08-19] MEDS: INSULIN DETEMIR 100 UNIT/ML 10 ML VIAL SQ SCH (21:10)
[2017-08-19 21:29] LABS: Glucose,Whole Blood 229 mg/dL (75-99)
[2017-08-20] MEDS: HYDROcodone/APAP 10-325MG 1 EACH TAB PO PRN ×5 (03:45→21:22)
[2017-08-20 06:22] LABS: Glucose,Whole Blood 95 mg/dL (75-99)
[2017-08-20 06:36] LABS: Albumin 2.9 g/dL (3.5-5.0); Basophils # (A) 0.1 k/uL (0-0.2); Basophils % (A) 1 %; Calcium 9.4 mg/dL (8.4-10.2); Eosinophils # (A) 0.6 k/uL (0-0.7); Eosinophils % (A) 5 %; HCT 29.6 % (39.0-53.0); HGB 9.6 gm/dL (13.0-17.5); Lymphocytes # (A) 2.1 k/uL (1.0-4.8); Lymphocytes % (A) 18 %; MCH 30.4 pg (25.0-35.0); MCHC 32.5 g/dL (31.0-37.0); MCV 93.6 fL (80.0-100.0); Mean Platelet Volume 7.3; Monocytes # (A) 0.8 k/uL (0-1.0); Monocytes % (A) 6 %; Neutrophils # (A) 8.1 k/uL (1.3-7.7); Neutrophils % (A) 69 %; Platelet Count 248 k/uL (150-450); Potassium 4.1 mmol/L (3.5-5.1); RBC 3.17 m/uL (4.30-5.90); RDW 13.2 % (11.5-15.5); Total Bilirubin 0.7 mg/dL (0.2-1.3); Total Protein 6.2 g/dL (6.3-8.2); WBC 11.7 k/uL (3.8-10.6)
[2017-08-20] MEDS: LEVOTHYROXINE 100 MCG TAB PO SCH (07:21)
[2017-08-20] MEDS: INSULIN ASPART 100 UNIT/ML 1 ML 10 ML VIAL SQ SCH ×3 (07:21→17:00)
[2017-08-20] MEDS: FERROUS SULFATE 325 MG TAB PO SCH ×2 (07:21→17:13)
[2017-08-20] MEDS: metFORMIN 500 MG TAB PO SCH (07:21)
[2017-08-20] MEDS: PANTOPRAZOLE 40 MG TABLET PO SCH (07:21)
[2017-08-20] MEDS: URSODIOL 300 MG CAP PO SCH ×2 (07:21→17:13)
[2017-08-20] MEDS: FLUTICASONE 50MCG/SPRAY NASAL 16GM EA NOSTRIL SCH (07:56)
[2017-08-20] MEDS: POTASSIUM CHLORIDE ER 20 MEQ TAB.ER PO SCH (07:58)
[2017-08-20] MEDS: FOLIC ACID 1 MG TAB PO SCH (07:58)
[2017-08-20] MEDS: LISINOPRIL 5 MG TAB PO SCH (07:58)
[2017-08-20] MEDS: CYANOCOBALAMIN 500 MCG TAB PO SCH (07:58)
[2017-08-20] MEDS: ASPIRIN 325 MG TAB PO SCH (07:58)
[2017-08-20] MEDS: METOPROLOL TARTRATE 25 MG TAB PO SCH (07:58)
[2017-08-20] MEDS: MAGNESIUM OXIDE 400 MG TAB PO SCH (07:59)
[2017-08-20] MEDS: HEPARIN SODIUM,PORCINE 5,000 UNIT/ML 1 ML VIAL SQ SCH ×2 (07:59→15:17)
[2017-08-20] MEDS: FUROSEMIDE 80 MG TAB PO SCH ×2 (07:59→15:17)
[2017-08-20] MEDS: GABAPENTIN 300 MG CAP PO SCH ×3 (07:59→21:15)
[2017-08-20] MEDS: LORATADINE 10 MG TAB PO SCH (07:59)
[2017-08-20] MEDS: IPRATROPIUM-ALBUTEROL 3 ML NEB INHALATION PRN (11:19)
[2017-08-20 11:47] LABS: Glucose,Whole Blood 154 mg/dL (75-99)
--- NOTE | 2017-08-20 15:42 | PN ---
PROGRESS NOTE DATE OF SERVICE: 08/20/2017. He is hemodynamically stable. He has been walking around. He has some shortness of breath and is asking to be evaluated by Oncology for further treatment as he will apparently accept treatment at this time regarding his lung cancer. PHYSICAL EXAMINATION: His respiratory rate is 18, pulse rate of 69, temperature 97 degrees Fahrenheit, blood pressure 95/43, O2 saturation on room air is 96%. HEENT is unremarkable. Chest reveals mild prolonged expiration. No wheeze. Cardiovascular system reveals an S1, S2. Abdomen is soft. There is no edema. IMPRESSION: At this time, 1. Squamous cell cancer. 2. Medical debility. 3. Atypical chest pain. 4. Hypertension. 5. Encephalopathy. Continue supportive care. Increase activity level. Have him evaluated by Radiation Medical Oncology for further definite treatment. Depending on how he does, we shall make further changes to his care. MMODL / IJN: [id number] /
[2017-08-20] MEDS: TAMSULOSIN 0.4 MG CAP.ER.24H PO SCH (17:13)
[2017-08-20 17:14] LABS: Glucose,Whole Blood 118 mg/dL (75-99)
[2017-08-20 21:12] LABS: Glucose,Whole Blood 184 mg/dL (75-99)
[2017-08-20] MEDS: INSULIN DETEMIR 100 UNIT/ML 10 ML VIAL SQ SCH (21:14)
[2017-08-20] MEDS: MONTELUKAST 10 MG TAB PO SCH (21:15)
[2017-08-21] MEDS: HYDROcodone/APAP 10-325MG 1 EACH TAB PO PRN ×3 (01:37→23:09)
[2017-08-21] MEDS: HEPARIN SODIUM,PORCINE 5,000 UNIT/ML 1 ML VIAL SQ SCH ×4 (01:43→23:09)
[2017-08-21 06:16] LABS: Glucose,Whole Blood 56 mg/dL (75-99)
[2017-08-21 06:18] LABS: Glucose,Whole Blood 65 mg/dL (75-99)
[2017-08-21 06:18] LABS: Basophils % (A) 0 %; Eosinophils # (A) 0.6 k/uL (0-0.7); Eosinophils % (A) 5 %; HCT 31.3 % (39.0-53.0); HGB 9.7 gm/dL (13.0-17.5); Lymphocytes # (A) 2.6 k/uL (1.0-4.8); Lymphocytes % (A) 21 %; MCH 29.8 pg (25.0-35.0); MCV 96.2 fL (80.0-100.0); Mean Platelet Volume 6.9; Monocytes # (A) 0.7 k/uL (0-1.0); Monocytes % (A) 6 %; Neutrophils # (A) 8.4 k/uL (1.3-7.7); Neutrophils % (A) 67 %; Platelet Count 283 k/uL (150-450); RBC 3.26 m/uL (4.30-5.90); RDW 13.3 % (11.5-15.5); WBC 12.5 k/uL (3.8-10.6)
[2017-08-21 06:29] LABS: Albumin 2.9 g/dL (3.5-5.0); Calcium 9.4 mg/dL (8.4-10.2); Potassium 4.3 mmol/L (3.5-5.1); Total Bilirubin 0.5 mg/dL (0.2-1.3); Total Protein 6.3 g/dL (6.3-8.2)
--- NOTE | 2017-08-21 06:30 | P.CONS ---
History of Present Illness - Chief Complaint Medical debility - History of Present Illness I had the opportunity to see patient for inpatient rehab consultation with regard to medical debility. He was admitted to [facility] August 17 with shortness of breath and mental status change. Seen by Dr. Mohan. Chest x -ray demonstrates increase or progression of perihilar mass. Head CT demonstrates left frontal bone thinning consistent with previous surgery as well as left posterior scalp hematoma. PT and OT prescribed. Previous functional history as elicited from patient: 88-year-old right-handed white male who is , retired, apparently family sold his home. History smoking but doesn't smoke or drink currently. Describes independent with own cooking, laundry, sitdown shower and gait without device. Does not drive, had his card taken away. Dr. Lazaro Bailey is regular doctor. Family history of cancer in both parents. Review of Systems Review of systems: ENT: Denies sneezes or discharge. Eyes: Denies discharge or photophobia. Cardiac: Denies chest pain or palpitation. Pulmonary: Mild shortness of breath. Gastrointestinal: Denies nausea, emesis, constipation, diarrhea. Genitourinary: Denies discharge or frequency. Musculoskeletal: Denies muscle or bone aches. Neurologic: Perhaps mild generalized weakness. Endocrine: Denies shakes or sweats. Oncology: Denies cancers. Dermatologic: Denies rash, itching, pruritus. ALLERGY/immunology: Denies sneezes, rashes. 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,"spots on lung" back pain, constipation History of Any Multi-Drug Resistant Organisms: None Reported Past Surgical History: Appendectomy, Cholecystectomy, Hernia Repair, Pacemaker, Tonsillectomy Additional Past Surgical History / Comment(s): lana CATARACTS WITH LENS IMPLANT, SKIN CANCER removed from head x3, thoracentesis Past Anesthesia/Blood Transfusion Reactions: No Reported Reaction Type of Cardiac Device: Permanent Pacemaker Device Placement Date:: 08/2015 Past Psychological History: Anxiety, Depression Additional Psychological History / Comment(s): pt staying at private home care givers house. Smoking Status: Former smoker Past Alcohol Use History: None Reported Additional Past Alcohol Use History / Comment(s): started smoking at age 11. 1PPD. QUIT SMOKING AT AGE22. Past Drug Use History: None Reported - Past Family History Mother Family Medical History: No Reported History, Cancer Additional Family Medical History / Comment(s): LEUKEMIA Father Additional Family Medical History / Comment(s): WOUNDED IN WW1, MULTIPLE INJURES -LIVED TILL AGE 89 Brother(s) Family Medical History: Cancer Medications and Allergies Home Medications Medication Instructions Recorded Confirmed Type Aspirin EC [Ecotrin Low Dose] 81 mg PO [facility] 10/13/14 08/17/17 History Folic Acid 1 mg PO DAILY@1300 10/13/14 08/17/17 History Lisinopril [Zestril] 5 mg PO DAILY 10/13/14 08/17/17 History [place]-3 Fatty Acids/Fish Oil [Fish 1 cap PO DAILY@1300 08/24/15 08/17/17 History Oil 1,000 mg Softgel] Potassium Chloride ER [K-Dur 20] 20 meq PO [facility] 08/24/15 08/17/17 History metFORMIN HCL 1,000 mg PO BID 02/21/16 08/17/17 History Fluticasone Nasal [place] [Flonase 2 spray EA NOSTRIL DAILY 03/25/16 08/17/17 History Nasal [place]] Magnesium Oxide [Mag-Ox] 400 mg PO 03/25/16 08/17/17 History Tamsulosin [Flomax] 0.4 mg PO 03/25/16 08/17/17 History Gabapentin [Neurontin] 300 mg PO BID 08/11/16 08/17/17 History Metoprolol Tartrate [Lopressor] 25 mg PO 08/11/16 08/17/17 History Ferrous Sulfate [Iron (65 MG 325 mg PO DAILY 11/04/16 08/17/17 History Elemental)] Levothyroxine Sodium [Synthroid] 100 mcg PO DAILY 01/04/17 08/17/17 History Loratadine [Claritin] 10 mg PO DAILY@1300 01/04/17 08/17/17 History Montelukast Sodium [Singulair] 10 mg PO DAILY 04/11/17 08/17/17 History Cyanocobalamin [Vitamin B-12] 500 mcg PO DAILY@1300 05/08/17 08/17/17 History Insulin Aspart [NovoLOG Flexpen] See Protocol SQ AC-TID 05/08/17 08/17/17 History Ubidecarenone [Co Q-10] 200 mg PO DAILY@1300 05/08/17 08/17/17 History Artificial Tears-Hypromellose 1 drops BOTH EYES TID PRN 05/09/17 08/17/17 History [Artificial Tear Drops] Budesonide [Pulmicort] 0.5 mg INHALATION RT-BID 08/17/17 08/17/17 History Budesonide/Formoterol Fumarate 2 puff INHALATION RT-BID 08/17/17 08/17/17 History [Symbicort 160-4.5 Mcg Inhaler] HYDROcodone/APAP 5-325MG [[place] 1 tab PO Q4HR PRN 08/17/17 08/17/17 History 5-325] Ursodiol [[place]] 250 mg PO HS 08/17/17 08/17/17 History Furosemide [Lasix] 40 mg PO DAILY 08/18/17 08/18/17 History Furosemide [Lasix] 80 mg PO DAILY 08/18/17 08/18/17 History Allergies Allergy/AdvReac Type Severity Reaction Status Date / Time Qwuqdrf-Nwh-Bod Reductase Allergy Unknown Unknown Verified 08/16/17 23:29 Inhibitor lactose Allergy Nausea Verified 08/16/17 23:29 Iodinated Contrast- Oral and AdvReac shakes Verified 08/16/17 23:29 IV Dye [Iodinated Contrast Media - IV Dye] Physical Exam Vitals: Vital Signs Temp Pulse Pulse Resp BP Pulse Ox 08/21/17 00:00 98.5 F 63 20 111/55 95 08/20/17 20:00 97.1 F L 61 18 111/53 95 08/20/17 15:47 96.8 F L 66 18 93/64 97 08/20/17 11:36 72 08/20/17 11:19 72 08/20/17 11:00 97 F L 69 18 95/43 96 08/20/17 08:00 97 F L 86 18 114/77 94 L Intake and Output 08/20/17 08/20/17 08/21/17 14:59 22:59 06:59 Intake Total 480 300 Output Total 500 Balance -20 300 Intake: Oral 480 300 Output: Urine 500 Other: Voiding Method Toilet Toilet Toilet Urinal Urinal Urinal # Voids 1 Weight 92 kg Patient Weight 08/21/17 06:59 Weight 92 kg Skin: Atrophic, intact. General: Medium build and comfortable appearance. Head: Normocephalic, atraumatic. Eyes: Symmetric. Pupils equal round. Ears: Symmetric. Hearing within normal limits. Mouth: Clear. Neck: Supple. Carotid without bruit. Cardiac: Regular rate and rhythm. Lungs: Clear anteriorly and posteriorly. Abdomen: Soft active nontender. Extremities: Normal tone. Neurological: Mental status: Alert, cooperative, pleasant. Cranial nerves: Symmetric facial tone and trapezius. Motor: Can actively elevate all limbs off of bed. Sensation: Intact throughout. DTRs: Symmetric and equal throughout. Mobility: Appears would require at least hands-on assist for steadying balance. Results CBC & Chem 7: 08/21/17 05:45 08/20/17 05:34 Labs: Abnormal Lab Results - Last 24 Hours (Table) 08/20/17 08/20/17 08/20/17 Range/Units 05:34 05:34 11:27 WBC 11.7 H (3.8-10.6) k/uL RBC 3.17 L (4.30-5.90) m/uL Hgb 9.6 L (13.0-17.5) gm/dL Hct 29.6 L (39.0-53.0) % Neutrophils # 8.1 H (1.3-7.7) k/uL Sodium 136 L (137-145) mmol/L BUN 27 H (9-20) mg/dL Creatinine 1.69 H (0.66-1.25) mg/dL POC Glucose (mg/dL) 154 H (75-99) mg/dL Total Protein 6.2 L (6.3-8.2) g/dL Albumin 2.9 L (3.5-5.0) g/dL 08/20/17 08/20/17 08/21/17 Range/Units 16:57 21:11 05:45 WBC 12.5 H (3.8-10.6) k/uL RBC 3.26 L (4.30-5.90) m/uL Hgb 9.7 L (13.0-17.5) gm/dL Hct 31.3 L (39.0-53.0) % Neutrophils # 8.4 H (1.3-7.7) k/uL Sodium (137-145) mmol/L BUN (9-20) mg/dL Creatinine (0.66-1.25) mg/dL POC Glucose (mg/dL) 118 H 184 H (75-99) mg/dL Total Protein (6.3-8.2) g/dL Albumin (3.5-5.0) g/dL 08/21/17 08/21/17 Range/Units 06:06 06:17 WBC (3.8-10.6) k/uL RBC (4.30-5.90) m/uL Hgb (13.0-17.5) gm/dL Hct (39.0-53.0) % Neutrophils # (1.3-7.7) k/uL Sodium (137-145) mmol/L BUN (9-20) mg/dL Creatinine (0.66-1.25) mg/dL POC Glucose (mg/dL) 56 L 65 L (75-99) mg/dL Total Protein (6.3-8.2) g/dL Albumin (3.5-5.0) g/dL Chest x-ray: report reviewed (Progression of perihilar mass.) CT Scan - head: report reviewed (Left frontal bur own cleaning consistent previous surgery. Left posterior scalp hematoma.) Assessment and Plan (1) Altered mental state Current Visit: Yes Status: Acute Code(s): R41.82 - ALTERED MENTAL STATUS, UNSPECIFIED SNOMED Code(s): 133959433 Plan: Impression: 1. Medical debility. 2. Encephalopathy. 3. Dyspnea. 4. History of skin cancer and pulmonary tumor. 5. Memory impairment. Comments and plan: At this time PT and OT are prescribed. We'll follow therapies with yourself. Safety concerns anticipated. Note rehab unit full today. May have discharge planning problem. Patient currently between homes and suggested possible discharge plan to [facility].
[2017-08-21] MEDS: URSODIOL 300 MG CAP PO SCH ×2 (06:54→17:43)
[2017-08-21] MEDS: FERROUS SULFATE 325 MG TAB PO SCH ×2 (06:55→17:42)
[2017-08-21] MEDS: PANTOPRAZOLE 40 MG TABLET PO SCH ×2 (06:55→07:02)
[2017-08-21] MEDS: INSULIN ASPART 100 UNIT/ML 1 ML 10 ML VIAL SQ SCH ×3 (07:00→18:03)
[2017-08-21] MEDS: FUROSEMIDE 80 MG TAB PO SCH ×2 (07:02→15:26)
[2017-08-21] MEDS: metFORMIN 500 MG TAB PO SCH (07:03)
[2017-08-21] MEDS: LEVOTHYROXINE 100 MCG TAB PO SCH (07:03)
[2017-08-21 07:54] LABS: Glucose,Whole Blood 112 mg/dL (75-99)
[2017-08-21] MEDS: GABAPENTIN 300 MG CAP PO SCH ×3 (08:17→21:43)
[2017-08-21] MEDS: POTASSIUM CHLORIDE ER 20 MEQ TAB.ER PO SCH (08:17)
[2017-08-21] MEDS: LORATADINE 10 MG TAB PO SCH (08:17)
[2017-08-21] MEDS: METOPROLOL TARTRATE 25 MG TAB PO SCH (08:17)
[2017-08-21] MEDS: ASPIRIN 325 MG TAB PO SCH (08:17)
[2017-08-21] MEDS: MAGNESIUM OXIDE 400 MG TAB PO SCH (08:17)
[2017-08-21] MEDS: LISINOPRIL 5 MG TAB PO SCH (08:18)
[2017-08-21] MEDS: IPRATROPIUM-ALBUTEROL 3 ML NEB INHALATION PRN (10:59)
[2017-08-21] MEDS: FOLIC ACID 1 MG TAB PO SCH (11:22)
[2017-08-21] MEDS: FLUTICASONE 50MCG/SPRAY NASAL 16GM EA NOSTRIL SCH (11:22)
[2017-08-21] MEDS: CYANOCOBALAMIN 500 MCG TAB PO SCH (11:22)
[2017-08-21 11:52] LABS: Glucose,Whole Blood 194 mg/dL (75-99)
--- NOTE | 2017-08-21 17:09 | P.PN ---
Progress Note - Text Progress Note Date: 08/21/17 Attempted to see patient and patient was not in room will return tomorrow to see patient for psychiatric consult
[2017-08-21 17:26] LABS: Glucose,Whole Blood 317 mg/dL (75-99)
[2017-08-21] MEDS: TAMSULOSIN 0.4 MG CAP.ER.24H PO SCH (17:43)
[2017-08-21 21:16] LABS: Glucose,Whole Blood 142 mg/dL (75-99)
[2017-08-21] MEDS: INSULIN DETEMIR 100 UNIT/ML 10 ML VIAL SQ SCH (21:43)
[2017-08-21] MEDS: MONTELUKAST 10 MG TAB PO SCH (21:43)
[2017-08-22] MEDS: LEVOTHYROXINE 100 MCG TAB PO SCH (06:24)
--- NOTE | 2017-08-22 07:04 | PN ---
PROGRESS NOTE SUBJECTIVE: A white male with lung cancer metastatic, some confusion, some violent behavior with his caregiver at home. VITAL SIGNS: Stable, afebrile. Await psychiatric consult. CARDIOVASCULAR: S1, S2. LUNGS: Scattered rhonchi and wheeze. HEMATOLOGY: Negative Homans. PSYCH: Fair mood and affect. NEUROLOGIC: Alert and oriented x3. ASSESSMENT: 1. Lung cancer, metastatic. 2. Encephalopathy. 3. Possible behavioral issues or dementia with behavioral issues versus chemotherapy- induced confusion. Please see further orders on the chart. Await Psych consult. Await discharge planning. MMODL / IJN: [id number] /
[2017-08-22 07:28] LABS: Glucose,Whole Blood 96 mg/dL (75-99)
[2017-08-22] MEDS: IPRATROPIUM-ALBUTEROL 3 ML NEB INHALATION PRN (08:33)
[2017-08-22] MEDS: INSULIN ASPART 100 UNIT/ML 1 ML 10 ML VIAL SQ SCH ×3 (09:20→17:43)
[2017-08-22] MEDS: FERROUS SULFATE 325 MG TAB PO SCH ×2 (10:14→17:38)
[2017-08-22] MEDS: METOPROLOL TARTRATE 25 MG TAB PO SCH (10:14)
[2017-08-22] MEDS: URSODIOL 300 MG CAP PO SCH ×2 (10:15→17:38)
[2017-08-22] MEDS: LISINOPRIL 5 MG TAB PO SCH (10:15)
[2017-08-22] MEDS: LORATADINE 10 MG TAB PO SCH (10:15)
[2017-08-22] MEDS: GABAPENTIN 300 MG CAP PO SCH ×3 (10:16→22:18)
[2017-08-22] MEDS: metFORMIN 500 MG TAB PO SCH (10:16)
[2017-08-22] MEDS: FUROSEMIDE 80 MG TAB PO SCH ×2 (10:16→12:45)
[2017-08-22] MEDS: MAGNESIUM OXIDE 400 MG TAB PO SCH (10:16)
[2017-08-22] MEDS: POTASSIUM CHLORIDE ER 20 MEQ TAB.ER PO SCH (10:16)
[2017-08-22] MEDS: ASPIRIN 325 MG TAB PO SCH (10:16)
[2017-08-22] MEDS: HEPARIN SODIUM,PORCINE 5,000 UNIT/ML 1 ML VIAL SQ SCH ×2 (10:17→17:38)
[2017-08-22] MEDS: FLUTICASONE 50MCG/SPRAY NASAL 16GM EA NOSTRIL SCH (10:17)
[2017-08-22 11:29] LABS: Glucose,Whole Blood 206 mg/dL (75-99)
[2017-08-22] MEDS: IPRATROPIUM-ALBUTEROL 3 ML NEB INHALATION SCH ×4 (12:26→19:33)
[2017-08-22] MEDS: HYDROcodone/APAP 10-325MG 1 EACH TAB PO PRN ×3 (12:43→22:16)
[2017-08-22] MEDS: FOLIC ACID 1 MG TAB PO SCH (12:43)
[2017-08-22] MEDS: CYANOCOBALAMIN 500 MCG TAB PO SCH (12:44)
[2017-08-22 17:22] LABS: Glucose,Whole Blood 277 mg/dL (75-99)
[2017-08-22] MEDS: TAMSULOSIN 0.4 MG CAP.ER.24H PO SCH (17:37)
--- NOTE | 2017-08-22 19:30 | P.CN ---
Psychiatric Consult - . Consult date: 08/22/17 Consult:: 08/22/17 19:21 Identification: Patient is an 79-year-old male who was admitted to the hospital with shortness of breath and altered mental status. Reason for Consult: Consultation was requested for violent behavior at home and confusion History of Present Illness: Patient is admitted to the hospital and had some confusion at the early part of his stay. Patient currently states that he had difficulties at the shelter he was at one week prior to his admission due to the wind operations supervisor changing him and adjusting his medications specifically his [place] which he states went from every 4 hours to every 8-10 hours. He states that this may have caused his confusion. Patient states that he is currently not feeling confused. Patient reports no suicidal or homicidal ideation states he is not having any visual hallucinations. Patient was up walking in the hallways yesterday when I attempted to see him and states that he walks in the hallways during the day. Patient had no current complaints other than that he states he has difficulty with his recent memory. Patient has been cooperative with care and there've been no incidents of any confusion or agitation. Patient does not endorse any symptoms of depression, eboni, anxiety there is no evidence of psychosis. Past Psychiatric History: Patient denies any prior psychiatric treatment. 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 Patient also has cancer of the skin unknown type. Social History: Patient was born and raised in [place] both of his parents are and he has 2 surviving brothers ages 94 and 78 and 1 brother. He was for 60 years and has 4 children. Patient states that his 3 years ago. Patient states that he they lost one child at . 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 He states he spent the next 3 years building a house that he and his then lived in. He states that the house was recently sold 2 weeks ago and he is upset that he doesn't know what it sold 4. He states after the of his his granddaughter moved in with him along with her and they took out a joint mortgage on the house with the patient and he states that this is the reason he needed to sell the house when they moved out recently that he was unable to pay the mortgage. Substance Use History: Patient states he has not used any alcohol for 10 years and has no prior or current history of drug use. Legal History: Patient has no legal history Mental status: Appearance/Attitude: Patient is dressed in pajamas, sitting comfortably in a hospital bed, he was cooperative and made eye contact Behavior: Patient did not exhibit any psychomotor agitation or retardation. Speech/Language: Patient's speech was spontaneous and of normal volume and rhythm and he was coherent. Thought Process: Patient was goal-directed and there is no evidence of loose associations or flight of ideas. Thought Content: Patient denied any auditory or visual hallucinations and no delusions or paranoia were elicited. Patient stated that he is sleeping and eating well and reports that as long as he receives his pain medication on a scheduled basis he is feeling comfortable. Suicidal/Homicidal Ideation: Patient denied any current or prior suicidal or homicidal ideation and he has no history of suicide attempts. Sensorium/Cognition: Patient was alert and oriented to person, place, and time and his remote memory was intact and his recent memory was grossly intact, he was not formally tested. Patient reports that he does have problems with his recent memory. Mood/Affect: Patient's mood was euthymic and his affect was appropriate Insight/Judgment: Patient's insight and judgment are fair. Assessment: Patient apparently was admitted with shortness of breath and altered mental status, currently the patient exhibits no evidence of an altered mental status. Patient has no history of psychiatric problems in the past and is not exhibiting any symptoms of psychosis, depression, or eboni. Diagnosis: Delirium, mixed etiology now clearing Plan: At this time there is no need for any psychotropic medication as the patient is not exhibiting any evidence of altered mental status. Patient complains of some difficulty with his recent memory but other than that is not expressing any symptoms of depression, there is no evidence of psychosis or eboni. This time I will sign off the case. 08/22/17 19:23
[2017-08-22 20:06] LABS: Glucose,Whole Blood 261 mg/dL (75-99)
[2017-08-22] MEDS: INSULIN DETEMIR 100 UNIT/ML 10 ML VIAL SQ SCH (22:15)
[2017-08-22] MEDS: MONTELUKAST 10 MG TAB PO SCH (22:18)
[2017-08-23] MEDS: HEPARIN SODIUM,PORCINE 5,000 UNIT/ML 1 ML VIAL SQ SCH ×4 (00:16→23:52)
--- NOTE | 2017-08-23 01:25 | PN ---
PROGRESS NOTE CHIEF COMPLAINT: This is 87-year-old white male with metastatic lung cancer awaiting rehab placement. Psychiatry saw the patient today as his family has been his violent aggressive behavior and his difficulties with relationships and has been kicked out of multiple places due to severe aggressive behavior and lying and paranoid delusions. Psychiatry will see him today. Await discharge planning and legal guardian to be placed. Psychiatry saw him, says he has delirium. No changes in his medicines. is no psychosis or eboni or depression. Did not appear depressed and they do not think he has dementia and cleared him from standpoint at this time. MMODL / IJN: [id number] /
[2017-08-23] MEDS: HYDROcodone/APAP 10-325MG 1 EACH TAB PO PRN ×3 (02:49→12:48)
[2017-08-23] MEDS: LEVOTHYROXINE 100 MCG TAB PO SCH (06:15)
[2017-08-23 07:20] LABS: Glucose,Whole Blood 210 mg/dL (75-99)
[2017-08-23] MEDS: LISINOPRIL 5 MG TAB PO SCH (08:04)
[2017-08-23] MEDS: URSODIOL 300 MG CAP PO SCH ×2 (08:41→16:52)
[2017-08-23] MEDS: GABAPENTIN 300 MG CAP PO SCH ×3 (08:41→21:21)
[2017-08-23] MEDS: FLUTICASONE 50MCG/SPRAY NASAL 16GM EA NOSTRIL SCH (08:41)
[2017-08-23] MEDS: MAGNESIUM OXIDE 400 MG TAB PO SCH (08:41)
[2017-08-23] MEDS: ASPIRIN 325 MG TAB PO SCH (08:41)
[2017-08-23] MEDS: METOPROLOL TARTRATE 25 MG TAB PO SCH (08:41)
[2017-08-23] MEDS: FERROUS SULFATE 325 MG TAB PO SCH ×2 (08:42→16:52)
[2017-08-23] MEDS: POTASSIUM CHLORIDE ER 20 MEQ TAB.ER PO SCH (08:42)
[2017-08-23] MEDS: metFORMIN 500 MG TAB PO SCH (08:42)
[2017-08-23] MEDS: PANTOPRAZOLE 40 MG TABLET PO SCH (08:42)
[2017-08-23] MEDS: FUROSEMIDE 80 MG TAB PO SCH ×2 (08:42→12:49)
[2017-08-23] MEDS: INSULIN ASPART 100 UNIT/ML 1 ML 10 ML VIAL SQ SCH ×3 (08:43→16:53)
[2017-08-23] MEDS: LORATADINE 10 MG TAB PO SCH (08:43)
[2017-08-23] MEDS: IPRATROPIUM-ALBUTEROL 3 ML NEB INHALATION SCH ×4 (09:10→19:14)
[2017-08-23 12:00] LABS: Glucose,Whole Blood 213 mg/dL (75-99)
[2017-08-23] MEDS: FOLIC ACID 1 MG TAB PO SCH (12:49)
[2017-08-23] MEDS: CYANOCOBALAMIN 500 MCG TAB PO SCH (12:49)
[2017-08-23] MEDS ORDERED: HYDROcodone/APAP 5-325MG 1 EACH TAB PO PRN (13:54)
[2017-08-23 16:46] LABS: Glucose,Whole Blood 232 mg/dL (75-99)
[2017-08-23] MEDS: TAMSULOSIN 0.4 MG CAP.ER.24H PO SCH (16:52)
[2017-08-23] MEDS: HYDROcodone/APAP 5-325MG 1 EACH TAB PO PRN ×2 (17:02→21:21)
[2017-08-23 20:05] LABS: Glucose,Whole Blood 323 mg/dL (75-99)
[2017-08-23] MEDS: INSULIN DETEMIR 100 UNIT/ML 10 ML VIAL SQ SCH (21:20)
[2017-08-23] MEDS: MONTELUKAST 10 MG TAB PO SCH (21:21)
--- NOTE | 2017-08-23 23:31 | PN ---
PROGRESS NOTE SUBJECTIVE: Ckykgc[age]obgko-jnos-old white male, fairly stable. He is worried about where he is going to be discharged home to. He wants to go to [facility], [facility] [place]. He has been appointed a guardian. Awaiting discharge planning. Sugars have been in the mid 200s. Temperature 98, pulse 75 to 87, blood pressure 109/63, oxygen 93% on room air. CARDIOVASCULAR: S1, S2. GI: Soft, nontender. HEMATOLOGIC: Negative Homans. PSYCH: Fair mood and affect. VASCULAR: Normal dorsalis pedis, posterior tibial and radial pulse. OPHTHALMOLOGIC: Pupils equal, round and react to light and accommodation. current treatment in the next 24 to 48 hours with possible discharge. No chemotherapy is needed. Continue on updraft treatments and treatment for diabetes mellitus, hypertension. MMODL / IJN: [id number] /
[2017-08-24] MEDS: HYDROcodone/APAP 5-325MG 1 EACH TAB PO PRN ×5 (01:11→21:47)
[2017-08-24 07:56] LABS: Glucose,Whole Blood 123 mg/dL (75-99)
[2017-08-24] MEDS: FERROUS SULFATE 325 MG TAB PO SCH ×2 (08:25→16:10)
[2017-08-24] MEDS: LEVOTHYROXINE 100 MCG TAB PO SCH (08:25)
[2017-08-24] MEDS: metFORMIN 500 MG TAB PO SCH (08:26)
[2017-08-24] MEDS: PANTOPRAZOLE 40 MG TABLET PO SCH (08:26)
[2017-08-24] MEDS: URSODIOL 300 MG CAP PO SCH ×2 (08:27→17:17)
[2017-08-24] MEDS: FUROSEMIDE 80 MG TAB PO SCH ×2 (08:27→14:21)
[2017-08-24] MEDS: HEPARIN SODIUM,PORCINE 5,000 UNIT/ML 1 ML VIAL SQ SCH ×2 (08:28→16:09)
[2017-08-24] MEDS: ASPIRIN 325 MG TAB PO SCH (08:31)
[2017-08-24] MEDS: FLUTICASONE 50MCG/SPRAY NASAL 16GM EA NOSTRIL SCH (08:32)
[2017-08-24] MEDS: MAGNESIUM OXIDE 400 MG TAB PO SCH (08:33)
[2017-08-24] MEDS: GABAPENTIN 300 MG CAP PO SCH ×3 (08:33→21:49)
[2017-08-24] MEDS: LORATADINE 10 MG TAB PO SCH (08:33)
[2017-08-24] MEDS: LISINOPRIL 5 MG TAB PO SCH (08:33)
[2017-08-24] MEDS: POTASSIUM CHLORIDE ER 20 MEQ TAB.ER PO SCH (08:34)
[2017-08-24] MEDS: INSULIN ASPART 100 UNIT/ML 1 ML 10 ML VIAL SQ SCH ×4 (08:40→21:47)
[2017-08-24] MEDS: METOPROLOL TARTRATE 25 MG TAB PO SCH (08:41)
[2017-08-24] MEDS: IPRATROPIUM-ALBUTEROL 3 ML NEB INHALATION SCH ×4 (09:07→21:49)
--- NOTE | 2017-08-24 09:42 | PN ---
PROGRESS NOTE SUBJECTIVE: An 87-year-old white male who has metastatic lung cancer, metabolic encephalopathy, some delirium intermittent, coronary artery disease and pacemaker. He is appropriate candidate for hospice at this time to the [facility] for which he will be transferred today. His vital signs were reviewed. Lungs are scattered wheeze x4. CARDIOVASCULAR: S1, S2. INTEGUMENT: He has bandage on his head from his scalp wound. His abdomen is soft. Extremities show 2+ edema. ASSESSMENT: 1. Delirium. 2. Dementia, mild nature. 3. Delirium, intermittent. 4. Metastatic lung cancer, appropriate for hospice. 5. Coronary artery disease. 6. Pacemaker. 7. Congestive heart failure. 8. Diabetes mellitus insulin-dependent type 2. 9. Obesity. 10.Hypertension. PLAN: Send to [facility] or appropriate [facility] home in the next 24 to 48 hours as appropriate for hospice at this time. MMODL / IJN: [id number] /
[2017-08-24 11:37] LABS: Glucose,Whole Blood 223 mg/dL (75-99)
[2017-08-24] MEDS: FOLIC ACID 1 MG TAB PO SCH (12:57)
[2017-08-24] MEDS: CYANOCOBALAMIN 500 MCG TAB PO SCH (12:57)
[2017-08-24 17:11] LABS: Glucose,Whole Blood 225 mg/dL (75-99)
[2017-08-24] MEDS: TAMSULOSIN 0.4 MG CAP.ER.24H PO SCH (17:17)
[2017-08-24 21:11] LABS: Glucose,Whole Blood 146 mg/dL (75-99)
[2017-08-24] MEDS: MONTELUKAST 10 MG TAB PO SCH (21:49)
[2017-08-24] MEDS: INSULIN DETEMIR 100 UNIT/ML 10 ML VIAL SQ SCH (21:49)
[2017-08-25] MEDS: HYDROcodone/APAP 5-325MG 1 EACH TAB PO PRN ×5 (01:12→18:03)
[2017-08-25] MEDS: HEPARIN SODIUM,PORCINE 5,000 UNIT/ML 1 ML VIAL SQ SCH ×4 (01:12→23:27)
--- NOTE | 2017-08-25 01:26 | DS ---
DISCHARGE SUMMARY ASSESSMENT: 1. Acute encephalopathy. 2. Squamous cell lung cancer, metastatic. 3. Moderate protein calorie malnutrition. 4. Iron deficiency anemia. 5. Diabetes mellitus type 2. 6. Diastolic congestive heart failure. 7. Obesity. 8. Chronic kidney disease stage 3. 9. Hypertension. 10.Obstructive sleep apnea. 11.Atrial flutter. 12.Hypothyroidism. 13.Squamous cell skin cancer. 14.Metastatic lung cancer, squamous cell of the lung. 15.History of chronic obstructive pulmonary disease. 16.Hypothyroidism. MEDICATIONS TO INCLUDE: 1. Artificial Tears b.i.d. 2. Lasix 80 b.i.d. 3. Levemir 35 q.h.s. 4. DuoNeb q.i.d. 5. Nitrostat 0.4 mg sublingual p.r.n. 6. Protonix 40 mg daily. 7. Ecotrin 81 mg daily. 8. Folic acid 1 mg daily. 9. Zestril 5 mg daily. 10.Potassium chloride 20 mEq daily. 11.Metformin 1000 b.i.d. 12.Flomax 0.4 mg daily. 13.Mag oxide 400 daily. 14.Fluticasone nasal spray daily. 15.Lopressor 25 daily. 16.Neurontin 300 b.i.d. 17.Iron sulfate 325 mg daily. 18.Claritin 10 mg daily. 19.Synthroid 100 mcg daily. 20.Singular 10 mg daily. 21.NovoLog a.c. and at bedtime. 22.Vitamin B12 daily. 23.Pulmicort 0.5 mg b.i.d. 24.Symbicort 160/4.5 2 puffs b.i.d. 25.[place] 5/325 1 every 4 hours p.r.n. for pain. 26.Ursodiol 250 mg daily. 27.Coenzyme Q10 200 mg daily. CONDITION: Stable. PROGNOSIS: Guarded. Ambulate as tolerated. HOSPITAL COURSE OF EVENTS: 87 -year-old white male, admitted with altered mental status. Delirium, metabolic encephalopathy, and COPD exacerbation and metastatic lung cancer, generalized debility was treated by statistical engineer and oncologist while in the hospital. He is not eligible for any chemotherapy or any further cancer treatment and he is going to be sent under palliative care to an [facility] or [facility] palliative care hospice program and under legal guardians aide. Followup with Dr. Mullally whenever he can or when he is readmitted in the hospital. MMODL / IJN: [id number] /
[2017-08-25] MEDS: LEVOTHYROXINE 100 MCG TAB PO SCH (06:09)
[2017-08-25 07:42] LABS: Glucose,Whole Blood 85 mg/dL (75-99)
[2017-08-25] MEDS: IPRATROPIUM-ALBUTEROL 3 ML NEB INHALATION SCH ×4 (07:49→20:28)
[2017-08-25] MEDS: INSULIN ASPART 100 UNIT/ML 1 ML 10 ML VIAL SQ SCH ×4 (09:48→21:40)
[2017-08-25] MEDS: FERROUS SULFATE 325 MG TAB PO SCH ×2 (09:48→18:06)
[2017-08-25] MEDS: metFORMIN 500 MG TAB PO SCH (09:49)
[2017-08-25] MEDS: PANTOPRAZOLE 40 MG TABLET PO SCH (09:50)
[2017-08-25] MEDS: FUROSEMIDE 80 MG TAB PO SCH ×2 (09:51→13:40)
[2017-08-25] MEDS: URSODIOL 300 MG CAP PO SCH ×2 (09:51→18:05)
[2017-08-25] MEDS: ASPIRIN 325 MG TAB PO SCH (09:52)
[2017-08-25] MEDS: FLUTICASONE 50MCG/SPRAY NASAL 16GM EA NOSTRIL SCH (09:52)
[2017-08-25] MEDS: LISINOPRIL 5 MG TAB PO SCH (09:53)
[2017-08-25] MEDS: GABAPENTIN 300 MG CAP PO SCH ×3 (09:53→21:41)
[2017-08-25] MEDS: METOPROLOL TARTRATE 25 MG TAB PO SCH (09:54)
[2017-08-25] MEDS: LORATADINE 10 MG TAB PO SCH (09:54)
[2017-08-25] MEDS: MAGNESIUM OXIDE 400 MG TAB PO SCH (09:54)
[2017-08-25] MEDS: POTASSIUM CHLORIDE ER 20 MEQ TAB.ER PO SCH (09:56)
[2017-08-25 12:01] LABS: Glucose,Whole Blood 167 mg/dL (75-99)
[2017-08-25] MEDS: FOLIC ACID 1 MG TAB PO SCH (12:53)
[2017-08-25] MEDS: CYANOCOBALAMIN 500 MCG TAB PO SCH (12:53)
[2017-08-25] MEDS ORDERED: guaiFENesin SYRUP 100MG/5ML 200 MG/10 ML CUP PO PRN (15:44)
[2017-08-25 17:27] LABS: Glucose,Whole Blood 173 mg/dL (75-99)
[2017-08-25] MEDS: TAMSULOSIN 0.4 MG CAP.ER.24H PO SCH (18:05)
[2017-08-25 21:22] LABS: Glucose,Whole Blood 273 mg/dL (75-99)
[2017-08-25] MEDS: MONTELUKAST 10 MG TAB PO SCH (21:41)
[2017-08-25] MEDS: INSULIN DETEMIR 100 UNIT/ML 10 ML VIAL SQ SCH (21:41)
[2017-08-25] MEDS: NYSTATIN 100,000 UNIT/ML SUSP 500,000 UNIT/5 ML CUP PO SCH (21:42)
[2017-08-25] MEDS: SENNOSIDES-DOCUSATE SODIUM 1 EACH TAB PO SCH (21:42)
--- NOTE | 2017-08-25 23:23 | P.CONS ---
History of Present Illness - Reason for Consult Consult date: 08/25/17 Recent Diagnosis Squamous Cell Carcinoma of the Lung - History of Present Illness Mr. Marte is a 87 year old gentleman who on July 17, 2017 was diagnosed with a squamous cell carcinoma of the Right Lung. No chemotherapy treatment was recommended secondary to his performance status. 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 Mr. Marte resides in a custodial and per EMR was having intermitent confusion, increased SOB, and occassional chest pain. Therefore, he has been brought to [facility] for further evaluation. A chest xray and brain CT was completed. Brain CT neg, and Chest xray reveal some increased progression in the right perihilar consolidation. Patient was seen at last recent admission and a long discussion regarding his extent of disease and multiple co-morbidies was had with him. At that time a decision for outpatient hospice was made. Patient was in agreement and arrangements were attempted to be made for an outpatient hospice care facility, although unable to find at last discharge. Since then patient has been re- admitted. He does not recall the previous conversations, poor historian and does not grasp the extent or the seriousness of his disease. Today we have seen him again regarding this diagnosis and his questions related to treating his cancer Review of Systems Poor Historian Constitutional: Reports anorexia, Reports fatigue, Reports poor appetite, Reports weakness, Reports weight loss Eyes: denies blurred vision, denies pain Ears, nose, mouth and throat: Reports vertigo, Denies headache, Denies sore throat Cardiovascular: Reports decreased exercise tolerance, Reports shortness of breath Respiratory: Reports cough, Reports pain Gastrointestinal: Denies abdominal pain, Denies diarrhea, Denies nausea, Denies vomiting Genitourinary: Reports as per HPI Musculoskeletal: Reports muscle weakness Integumentary: Reports lesions (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, s/p RT), Reports wounds Neurological: Reports balance difficulties Psychiatric: Reports confusion, Reports memory loss Endocrine: Reports fatigue, Reports weight change Hematologic/Lymphatic: Reports as per HPI 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,"spots on lung" back pain, constipation History of Any Multi-Drug Resistant Organisms: None Reported Past Surgical History: Appendectomy, Cholecystectomy, Hernia Repair, Pacemaker, Tonsillectomy Additional Past Surgical History / Comment(s): lana CATARACTS WITH LENS IMPLANT, SKIN CANCER removed from head x3, thoracentesis Past Anesthesia/Blood Transfusion Reactions: No Reported Reaction Type of Cardiac Device: Permanent Pacemaker Device Placement Date:: 08/2015 Past Psychological History: Anxiety, Depression Additional Psychological History / Comment(s): pt staying at private home care givers house. Smoking Status: Former smoker Past Alcohol Use History: None Reported Additional Past Alcohol Use History / Comment(s): started smoking at age 11. 1PPD. QUIT SMOKING AT AGE22. Past Drug Use History: None Reported - Past Family History Mother Family Medical History: No Reported History, Cancer Additional Family Medical History / Comment(s): LEUKEMIA Father Additional Family Medical History / Comment(s): WOUNDED IN WW1, MULTIPLE INJURES -LIVED TILL AGE 89 Brother(s) Family Medical History: Cancer Medications and Allergies Home Medications Medication Instructions Recorded Confirmed Type Aspirin EC [Ecotrin Low Dose] 81 mg PO [facility] 10/13/14 08/17/17 History Folic Acid 1 mg PO DAILY@1300 10/13/14 08/17/17 History Lisinopril [Zestril] 5 mg PO DAILY 10/13/14 08/17/17 History Potassium Chloride ER [K-Dur 20] 20 meq PO QAM 08/24/15 08/17/17 History metFORMIN HCL 1,000 mg PO BID 02/21/16 08/17/17 History Fluticasone Nasal [place] [Flonase 2 spray EA NOSTRIL DAILY 03/25/16 08/17/17 History Nasal [place]] Magnesium Oxide [Mag-Ox] 400 mg PO HS 03/25/16 08/17/17 History Tamsulosin [Flomax] 0.4 mg PO HS 03/25/16 08/17/17 History Gabapentin [Neurontin] 300 mg PO BID 08/11/16 08/17/17 History Metoprolol Tartrate [Lopressor] 25 mg PO HS 08/11/16 08/17/17 History Ferrous Sulfate [Iron (65 MG 325 mg PO DAILY 11/04/16 08/17/17 History Elemental)] Levothyroxine Sodium [Synthroid] 100 mcg PO DAILY 01/04/17 08/17/17 History Loratadine [Claritin] 10 mg PO DAILY@1300 01/04/17 08/17/17 History Montelukast Sodium [Singulair] 10 mg PO DAILY 04/11/17 08/17/17 History Cyanocobalamin [Vitamin B-12] 500 mcg PO DAILY@1300 05/08/17 08/17/17 History Insulin Aspart [NovoLOG Flexpen] See Protocol SQ AC-TID 05/08/17 08/17/17 History Ubidecarenone [Co Q-10] 200 mg PO DAILY@1300 05/08/17 08/17/17 History Artificial Tears-Hypromellose 1 drops BOTH EYES TID PRN 05/09/17 08/17/17 History [Artificial Tear Drops] Budesonide [Pulmicort] 0.5 mg INHALATION RT-BID 08/17/17 08/17/17 History Budesonide/Formoterol Fumarate 2 puff INHALATION RT-BID 08/17/17 08/17/17 History [Symbicort 160-4.5 Mcg Inhaler] HYDROcodone/APAP 5-325MG [[place] 1 tab PO Q4HR PRN 08/17/17 08/17/17 History 5-325] Ursodiol [Marcos] 250 mg PO HS 08/17/17 08/17/17 History Artificial Tears Ointment 1 applic BOTH EYES TID PRN applic 08/24/17 Rx [Lubrifresh Pm Ointment] Furosemide [Lasix] 80 mg PO BID@0800,1400 tab 08/24/17 Rx Insulin Detemir [Levemir] 35 unit SQ HS syr 08/24/17 Rx Ipratropium-Albuterol Nebulize 3 ml INHALATION RT-QID ampul.neb 08/24/17 Rx [Duoneb 0.5 mg-3 mg/3 ml Soln] Nitroglycerin Sl Tabs [Nitrostat] 0.4 mg SUBLINGUAL Q5M PRN tab 02/15/18 Rx Pantoprazole [Protonix] 40 mg PO AC-BRKFST tablet. 08/24/17 Rx Allergies Allergy/AdvReac Type Severity Reaction Status Date / Time Gradhpj-Drz-Hwu Reductase Allergy Unknown Unknown Verified 08/16/17 23:29 Inhibitor lactose Allergy Nausea Verified 08/16/17 23:29 Iodinated Contrast- Oral and AdvReac shakes Verified 08/16/17 23:29 IV Dye [Iodinated Contrast Media - IV Dye] Physical Exam Vitals: Vital Signs Temp Pulse Pulse Resp BP Pulse Ox 08/18/17 08:40 86 08/18/17 08:31 82 96 08/18/17 08:00 63 17 08/18/17 07:57 97 F L 63 17 119/56 97 08/18/17 04:00 96.0 F L 66 18 101/51 97 08/18/17 00:00 96.0 F L 66 18 101/57 97 08/17/17 21:02 90 16 08/17/17 20:50 94 16 08/17/17 20:00 96.0 F L 60 20 114/57 95 08/17/17 16:41 97.6 F 71 16 108/52 84 L 08/17/17 16:23 92 16 08/17/17 16:13 90 16 98 08/17/17 13:03 90 08/17/17 12:53 88 08/17/17 11:57 97.6 F 62 16 114/55 96 Intake and Output 08/17/17 08/18/17 08/18/17 22:59 06:59 14:59 Intake Total 357 712 Balance 357 712 Intake: Oral 357 712 Other: Voiding Method Urinal Urinal Urinal # Voids 2 Weight 94 kg - Constitutional General appearance: no acute distress - EENT OPen sore on left scalp Eyes: poor dentition - Neck Neck: normal ROM - Respiratory Respiratory: bilateral: diminished (lower lobes and upper lobes), rhonchi - Cardiovascular Rhythm: irregularly irregular - Integumentary Integumentary: pale - Neurologic no focal defects - Musculoskeletal Musculoskeletal: gait normal, generalized weakness - Psychiatric Requires remediation and does not comprehend realization of diagnosis Psychiatric: A&O x's 3, appropriate affect Results CBC & Chem 7: 08/21/17 05:45 08/21/17 05:45 Labs: Abnormal Lab Results - Last 24 Hours (Table) 08/17/17 08/17/17 08/17/17 Range/Units 05:27 10:57 11:26 WBC (3.8-10.6) k/uL RBC (4.30-5.90) m/uL Hgb (13.0-17.5) gm/dL Hct (39.0-53.0) % MCHC (31.0-37.0) g/dL BUN (9-20) mg/dL Creatinine (0.66-1.25) mg/dL Glucose (74-99) mg/dL POC Glucose (mg/dL) 250 H (75-99) mg/dL Hemoglobin A1c 8.0 H (4.0-6.0) % Total Creatine Kinase 32 L (55-170) U/L Troponin I 0.050 H* (0.000-0.034) ng/mL LDL Cholesterol, Calc (0-99) mg/dL HDL Cholesterol (40-60) mg/dL 08/17/17 08/17/17 08/18/17 Range/Units 16:48 21:17 05:40 WBC (3.8-10.6) k/uL RBC (4.30-5.90) m/uL Hgb (13.0-17.5) gm/dL Hct (39.0-53.0) % MCHC (31.0-37.0) g/dL BUN 21 H (9-20) mg/dL Creatinine 1.40 H (0.66-1.25) mg/dL Glucose 166 H (74-99) mg/dL POC Glucose (mg/dL) 282 H 283 H (75-99) mg/dL Hemoglobin A1c (4.0-6.0) % Total Creatine Kinase (55-170) U/L Troponin I (0.000-0.034) ng/mL LDL Cholesterol, Calc 104 H (0-99) mg/dL HDL Cholesterol 34 L (40-60) mg/dL 08/18/17 08/18/17 Range/Units 05:40 05:53 WBC 11.9 H (3.8-10.6) k/uL RBC 2.94 L (4.30-5.90) m/uL Hgb 9.0 L (13.0-17.5) gm/dL Hct 29.0 L (39.0-53.0) % MCHC 30.9 L (31.0-37.0) g/dL BUN (9-20) mg/dL Creatinine (0.66-1.25) mg/dL Glucose (74-99) mg/dL POC Glucose (mg/dL) 159 H (75-99) mg/dL Hemoglobin A1c (4.0-6.0) % Total Creatine Kinase (55-170) U/L Troponin I (0.000-0.034) ng/mL LDL Cholesterol, Calc (0-99) mg/dL HDL Cholesterol (40-60) mg/dL Microbiology - Last 24 Hours (Table) 08/17/17 01:00 Urine Culture - Preliminary Urine,Clean Catch Chest x-ray: report reviewed CT Scan - head: report reviewed Assessment and Plan Assessment: 87 year old male with known history of squamous cell carcinoma to scalp, status post palliatiative radiation in March 2017 and recent new squamous cell carcinoma of the Right Lung, diagnosed in July 2017. Presents to [facility] for increased Shortness of Breath, Occassional Chest Pain, Intermittent confusion. Chest Xray revealed increasing consolidation right perhilar. CT brain neg. He [facility] in a [facility], Ambulates with caner/ walker, he is a poor historian. (1) Squamous cell lung cancer Narrative/Plan: Chest Xray reveals possible progression of metastatic lung cancer 1. Not candidate for systemic therapy secondary to performance status and co morbidities. This was discussed in detail with him 2. Hospice was previously discussed with the patient. He was agreeable then but does not recall the conversation. This was again strongly recommended Will require outpatient hospice care 3. Will need social work assistance and poss psych eval for assistance with outpatient hospice care, willl need housing facilty accepting of hospice care. His memory and recall are poor, and his comprehension is not certain 4. Long greater than 25 minute conversation remediating diagnosis and inability to receive treatment Current Visit: No Status: Acute Priority: High Code(s): C34.90 - MALIGNANT NEOPLASM OF UNSP PART OF UNSP BRONCHUS OR LUNG SNOMED Code(s): 338598160 (2) Normocytic anemia Narrative/Plan: Multifactoral - Malignancy versus Chronic kidney disease versus other 1. Monitor CBC and Provide supportive care for symptoms Current Visit: Yes Status: Acute Code(s): D64.9 - ANEMIA, UNSPECIFIED SNOMED Code(s): 884897141 (3) Acute exacerbation of chronic obstructive airways disease Current Visit: No Status: Acute Code(s): J44.1 - CHRONIC OBSTRUCTIVE PULMONARY DISEASE W (ACUTE) EXACERBATION SNOMED Code(s): 693615933 (4) Acute renal failure Narrative/Plan: Creatinine trending upwards since Aug 10 secondary to dehydration - IV Hydration and monitoring Current Visit: No Status: Acute Code(s): N17.9 - ACUTE KIDNEY FAILURE, UNSPECIFIED SNOMED Code(s): 02000593 (5) Insulin dependent diabetes mellitus Current Visit: No Status: Chronic Code(s): E11.9 - TYPE 2 DIABETES MELLITUS WITHOUT COMPLICATIONS; Z79.4 - DRAG SAWYER (CURRENT) USE OF INSULIN SNOMED Code( s): 03619764 (6) Skin carcinoma Narrative/Plan: Squamous Cell of Scalp Status POst Radiation in March 2017. The lung lesions may represent metastases from this. However, that would not change prognosis Current Visit: No Status: Chronic Code(s): C44.99 - OTHER SPECIFIED MALIGNANT NEOPLASM OF SKIN, UNSPECIFIED SNOMED Code(s): 60273850 Plan: 1. Discuss options with family hospice versus Palliative radiation for symptom management 2. Continue supportive care - Nebs, pain control
[2017-08-26] MEDS: HYDROcodone/APAP 5-325MG 1 EACH TAB PO PRN ×3 (01:10→21:18)
[2017-08-26] MEDS: LEVOTHYROXINE 100 MCG TAB PO SCH (06:27)
[2017-08-26] MEDS: IPRATROPIUM-ALBUTEROL 3 ML NEB INHALATION SCH ×4 (07:33→18:57)
[2017-08-26] MEDS: INSULIN ASPART 100 UNIT/ML 1 ML 10 ML VIAL SQ SCH ×4 (07:40→21:19)
[2017-08-26 07:42] LABS: Glucose,Whole Blood 74 mg/dL (75-99)
[2017-08-26] MEDS: URSODIOL 300 MG CAP PO SCH ×2 (08:49→17:35)
[2017-08-26] MEDS: MAGNESIUM OXIDE 400 MG TAB PO SCH (08:49)
[2017-08-26] MEDS: LORATADINE 10 MG TAB PO SCH (08:49)
[2017-08-26] MEDS: GABAPENTIN 300 MG CAP PO SCH ×3 (08:49→17:34)
[2017-08-26] MEDS: FUROSEMIDE 80 MG TAB PO SCH ×2 (08:49→12:56)
[2017-08-26] MEDS: FERROUS SULFATE 325 MG TAB PO SCH ×2 (08:50→17:34)
[2017-08-26] MEDS: FLUTICASONE 50MCG/SPRAY NASAL 16GM EA NOSTRIL SCH (08:50)
[2017-08-26] MEDS: metFORMIN 500 MG TAB PO SCH (08:50)
[2017-08-26] MEDS: HEPARIN SODIUM,PORCINE 5,000 UNIT/ML 1 ML VIAL SQ SCH ×3 (08:50→17:41)
[2017-08-26] MEDS: NYSTATIN 100,000 UNIT/ML SUSP 500,000 UNIT/5 ML CUP PO SCH ×4 (08:50→21:18)
[2017-08-26] MEDS: METOPROLOL TARTRATE 25 MG TAB PO SCH (08:50)
[2017-08-26] MEDS: LISINOPRIL 5 MG TAB PO SCH (08:50)
[2017-08-26] MEDS: SENNOSIDES-DOCUSATE SODIUM 1 EACH TAB PO SCH ×2 (08:50→21:21)
[2017-08-26] MEDS: ASPIRIN 325 MG TAB PO SCH (08:50)
[2017-08-26] MEDS: POTASSIUM CHLORIDE ER 20 MEQ TAB.ER PO SCH (08:50)
[2017-08-26] MEDS: PANTOPRAZOLE 40 MG TABLET PO SCH (08:50)
[2017-08-26 12:29] LABS: Glucose,Whole Blood 171 mg/dL (75-99)
[2017-08-26] MEDS: FOLIC ACID 1 MG TAB PO SCH (12:56)
[2017-08-26] MEDS: CYANOCOBALAMIN 500 MCG TAB PO SCH (12:56)
[2017-08-26 17:24] LABS: Glucose,Whole Blood 155 mg/dL (75-99)
[2017-08-26] MEDS: TAMSULOSIN 0.4 MG CAP.ER.24H PO SCH (17:36)
--- NOTE | 2017-08-26 20:38 | PN ---
PROGRESS NOTE SUBJECTIVE: 87-year-old white male, metastatic lung cancer, COPD, acute hypoxemic respiratory failure, delirium, encephalopathy. The patient will continue with current treatment, nystatin solution for stomatitis has been given. Constipation pills have been switched to Colace. PHYSICAL EXAMINATION: Cardiovascular S1-S2, lungs scattered rhonchi and wheeze. GI soft. Hematology: Negative Homans. PLAN: Continue current treatment. Await for discharge planning to find a place to go. ASSESSMENT: 1. Metastatic lung cancer. 2. Acute hypoxemic respiratory failure. 3. Squamous cell carcinoma of the lung. 4. Hypomagnesemia. 5. Altered mental status and delirium encephalopathy. See further orders. MMODL / IJN: [id number] /
[2017-08-26 20:56] LABS: Glucose,Whole Blood 231 mg/dL (75-99)
[2017-08-26] MEDS: MONTELUKAST 10 MG TAB PO SCH (21:19)
[2017-08-26] MEDS: INSULIN DETEMIR 100 UNIT/ML 10 ML VIAL SQ SCH (21:20)
[2017-08-27] MEDS: HEPARIN SODIUM,PORCINE 5,000 UNIT/ML 1 ML VIAL SQ SCH ×3 (01:15→15:34)
[2017-08-27] MEDS: HYDROcodone/APAP 5-325MG 1 EACH TAB PO PRN ×3 (01:15→21:56)
[2017-08-27] MEDS: LEVOTHYROXINE 100 MCG TAB PO SCH (06:16)
[2017-08-27 07:07] LABS: Glucose,Whole Blood 156 mg/dL (75-99)
[2017-08-27] MEDS: IPRATROPIUM-ALBUTEROL 3 ML NEB INHALATION SCH ×4 (07:38→20:04)
[2017-08-27] MEDS: INSULIN ASPART 100 UNIT/ML 1 ML 10 ML VIAL SQ SCH ×4 (09:14→21:20)
[2017-08-27] MEDS: PANTOPRAZOLE 40 MG TABLET PO SCH ×2 (09:14→09:30)
[2017-08-27] MEDS: FERROUS SULFATE 325 MG TAB PO SCH ×2 (09:14→15:21)
[2017-08-27] MEDS: ASPIRIN 325 MG TAB PO SCH (09:14)
[2017-08-27] MEDS: MAGNESIUM OXIDE 400 MG TAB PO SCH ×2 (09:15→09:30)
[2017-08-27] MEDS: GABAPENTIN 300 MG CAP PO SCH ×3 (09:15→21:57)
[2017-08-27] MEDS: LISINOPRIL 5 MG TAB PO SCH (09:15)
[2017-08-27] MEDS: POTASSIUM CHLORIDE ER 20 MEQ TAB.ER PO SCH ×2 (09:15→09:30)
[2017-08-27] MEDS: URSODIOL 300 MG CAP PO SCH ×2 (09:15→18:06)
[2017-08-27] MEDS: NYSTATIN 100,000 UNIT/ML SUSP 500,000 UNIT/5 ML CUP PO SCH ×4 (09:16→21:52)
[2017-08-27] MEDS: metFORMIN 500 MG TAB PO SCH ×2 (09:16→09:29)
[2017-08-27] MEDS: FUROSEMIDE 80 MG TAB PO SCH ×2 (09:18→15:34)
[2017-08-27] MEDS: METOPROLOL TARTRATE 25 MG TAB PO SCH (09:29)
[2017-08-27] MEDS: LORATADINE 10 MG TAB PO SCH (09:30)
[2017-08-27] MEDS: FLUTICASONE 50MCG/SPRAY NASAL 16GM EA NOSTRIL SCH (09:34)
[2017-08-27 11:48] LABS: Glucose,Whole Blood 191 mg/dL (75-99)
[2017-08-27] MEDS: CYANOCOBALAMIN 500 MCG TAB PO SCH (12:20)
[2017-08-27] MEDS: SENNOSIDES-DOCUSATE SODIUM 1 EACH TAB PO SCH ×2 (12:21→21:02)
[2017-08-27] MEDS: FOLIC ACID 1 MG TAB PO SCH (12:21)
[2017-08-27] MEDS ORDERED: NA PHOS,M-B/NA PHOS,DI-BA 133 ML ENEMA RECTAL ONE (12:22)
[2017-08-27 14:09] LABS: HCT 39.3 % (39.0-53.0); HGB 12.4 gm/dL (13.0-17.5); MCH 30.4 pg (25.0-35.0); MCHC 31.7 g/dL (31.0-37.0); MCV 96.1 fL (80.0-100.0); Mean Platelet Volume 6.9; Platelet Count 445 k/uL (150-450); RBC 4.09 m/uL (4.30-5.90); RDW 13.6 % (11.5-15.5)
[2017-08-27 14:10] LABS: Calcium 10.6 mg/dL (8.4-10.2); Potassium 5.3 mmol/L (3.5-5.1)
[2017-08-27 14:14] LABS: WBC 33.7 k/uL (3.8-10.6)
[2017-08-27 14:36] LABS: Band Neutrophils % 5 %; Lymphocytes # (M) 2.02 k/uL (1.0-4.8); Monocytes # (M) 1.01 k/uL (0-1.0); Neutrophils % (M) 87 %; Nucleated Red Blood Cells 0 /100 WBC (0-0); Total Cells Counted 200
--- NOTE | 2017-08-27 17:03 | XR ---
EXAMINATION TYPE: XR abdomen 2V DATE OF EXAM: 08/27/2017 COMPARISON: July 11, 2017 HISTORY: Abdominal pain TECHNIQUE: 3 views FINDINGS: There is no sign of intestinal obstruction or pneumoperitoneum. Fecal pattern is normal. Th ere is a thick-walled 3 cm cavity in the right midlung. There are no pathologic calcifications over t he kidneys. IMPRESSION: Nonacute abdomen. Cavity in the right midlung. No change compared to last exam.
[2017-08-27 17:15] LABS: Glucose,Whole Blood 143 mg/dL (75-99)
[2017-08-27] MEDS ORDERED: SODIUM CHLORIDE 0.9% 1,000 ML IV SCH (17:15)
[2017-08-27] MEDS: TAMSULOSIN 0.4 MG CAP.ER.24H PO SCH (18:06)
[2017-08-27] MEDS: PIPERACILLIN-TAZOBACTAM 3.375 GM in DEXTROSE/WATER 1 50ML.BAG IVPB SCH (18:24)
--- NOTE | 2017-08-27 19:48 | CT ---
EXAMINATION TYPE: CT chest wo con DATE OF EXAM: 08/27/2017 COMPARISON: 07/13/2017 HISTORY: Poor historian, shortness of breath CT DLP: 501.0 mGycm. Automated Exposure Control for Dose Reduction was Utilized. TECHNIQUE: CT scan of the thorax is performed without IV contrast. FINDINGS: Exam is limited by lack of contrast. There is a 2 cm stellate infiltrate at the medial left lung apex . There are some emphysematous changes. There is a 4 cm irregular thick-walled cavity in the right up per lobe. There is a 2 cm low-density infiltrate in the right lateral midlung. There is a 15 mm cavit ating mass in the left midlung. There is bilateral bronchial adenopathy. There are enlarged paratrach eal lymph nodes that measure up to 2.5 cm. There are anterior mediastinal enlarged lymph nodes up to 3 cm. Thoracic aorta is atheromatous. There is no pleural effusion. There is a 1 cm nodular density i n the lingula left upper lobe. There is no pericardial effusion. IMPRESSION: Multiple pulmonary abnormalities with cavitating masses. This is consistent with metastat ic disease. I see no significant change compared to last exam. Extensive mediastinal and bronchial ad enopathy. This is also not significantly different.
[2017-08-27 19:54] LABS: Glucose,Whole Blood 189 mg/dL (75-99)
[2017-08-27] MEDS: INSULIN DETEMIR 100 UNIT/ML 10 ML VIAL SQ SCH (21:56)
[2017-08-27] MEDS: MONTELUKAST 10 MG TAB PO SCH (21:57)
[2017-08-27] MEDS: metroNIDAZOLE 500 MG TAB PO SCH (21:57)
[2017-08-28] MEDS: HEPARIN SODIUM,PORCINE 5,000 UNIT/ML 1 ML VIAL SQ SCH ×4 (00:21→23:24)
[2017-08-28] MEDS: SODIUM CHLORIDE 0.9% 1,000 ML IV SCH ×3 (03:59→23:23)
[2017-08-28] MEDS: PIPERACILLIN-TAZOBACTAM 3.375 GM in DEXTROSE/WATER 1 50ML.BAG IVPB SCH ×2 (05:00→17:56)
[2017-08-28] MEDS: LEVOTHYROXINE 100 MCG TAB PO SCH (06:10)
[2017-08-28 07:29] LABS: Glucose,Whole Blood 64 mg/dL (75-99)
[2017-08-28 07:34] LABS: HCT 39.3 % (39.0-53.0); HGB 12.1 gm/dL (13.0-17.5); Hypochromasia Slight; MCH 30.2 pg (25.0-35.0); MCHC 30.8 g/dL (31.0-37.0); Mean Platelet Volume 7.1; Platelet Count 445 k/uL (150-450); RBC 4.01 m/uL (4.30-5.90); RDW 13.9 % (11.5-15.5)
[2017-08-28] MEDS: INSULIN ASPART 100 UNIT/ML 1 ML 10 ML VIAL SQ SCH ×4 (07:40→23:20)
[2017-08-28] MEDS: HYDROcodone/APAP 5-325MG 1 EACH TAB PO PRN ×2 (07:41→23:24)
[2017-08-28] MEDS: GABAPENTIN 300 MG CAP PO SCH ×3 (07:42→23:23)
[2017-08-28] MEDS: METOPROLOL TARTRATE 25 MG TAB PO SCH (07:42)
[2017-08-28] MEDS: PANTOPRAZOLE 40 MG TABLET PO SCH (07:42)
[2017-08-28] MEDS: metroNIDAZOLE 500 MG TAB PO SCH ×3 (07:43→23:23)
[2017-08-28] MEDS: NYSTATIN 100,000 UNIT/ML SUSP 500,000 UNIT/5 ML CUP PO SCH ×4 (07:43→23:24)
[2017-08-28] MEDS: FUROSEMIDE 80 MG TAB PO SCH ×2 (07:43→13:08)
[2017-08-28] MEDS: FERROUS SULFATE 325 MG TAB PO SCH ×2 (07:43→15:32)
[2017-08-28] MEDS: LORATADINE 10 MG TAB PO SCH (07:44)
[2017-08-28] MEDS: POTASSIUM CHLORIDE ER 20 MEQ TAB.ER PO SCH (07:44)
[2017-08-28] MEDS: URSODIOL 300 MG CAP PO SCH ×2 (07:44→17:54)
[2017-08-28] MEDS: ASPIRIN 325 MG TAB PO SCH (07:44)
[2017-08-28] MEDS: LISINOPRIL 5 MG TAB PO SCH (07:44)
[2017-08-28 07:46] LABS: Calcium 9.6 mg/dL (8.4-10.2); WBC 30.2 k/uL (3.8-10.6)
[2017-08-28] MEDS: SENNOSIDES-DOCUSATE SODIUM 1 EACH TAB PO SCH ×2 (07:46→23:20)
[2017-08-28] MEDS: FLUTICASONE 50MCG/SPRAY NASAL 16GM EA NOSTRIL SCH (07:46)
[2017-08-28] MEDS: IPRATROPIUM-ALBUTEROL 3 ML NEB INHALATION SCH ×4 (07:53→19:47)
[2017-08-28 08:20] LABS: Glucose,Whole Blood 55 mg/dL (75-99)
[2017-08-28 08:21] LABS: Glucose,Whole Blood 63 mg/dL (75-99)
[2017-08-28 08:21] LABS: Glucose,Whole Blood 59 mg/dL (75-99)
[2017-08-28 08:56] LABS: Glucose,Whole Blood 73 mg/dL (75-99)
[2017-08-28 09:08] LABS: Band Neutrophils % 4 %; Lymphocytes # (M) 1.51 k/uL (1.0-4.8); Monocytes # (M) 2.11 k/uL (0-1.0); Neutrophils % (M) 83 %; Nucleated Red Blood Cells 0 /100 WBC (0-0); Total Cells Counted 100
[2017-08-28] MEDS: MORPHINE SULFATE 4 MG/ML SYRINGE IV PRN ×2 (11:17→23:52)
[2017-08-28 11:59] LABS: Glucose,Whole Blood 76 mg/dL (75-99)
[2017-08-28] MEDS ORDERED: IOHEXOL 350 MG/ML 25 ML BOTTLE (ORAL USE) PO PRN (13:01)
[2017-08-28] MEDS: FOLIC ACID 1 MG TAB PO SCH (13:06)
[2017-08-28] MEDS: CYANOCOBALAMIN 500 MCG TAB PO SCH (13:06)
[2017-08-28] MEDS: BARIUM SULFATE 450 ML ORAL.SUSP BOTTLE PO PRN ×2 (15:28→18:04)
[2017-08-28] MEDS: TAMSULOSIN 0.4 MG CAP.ER.24H PO SCH (15:34)
[2017-08-28 17:58] LABS: Glucose,Whole Blood 86 mg/dL (75-99)
--- NOTE | 2017-08-28 18:47 | CONS ---
CONSULTATION DATE OF CONSULTATION: 08/28/2017. REASON FOR CONSULTATION: Elevated white count, lactic acid and antibiotic recommendation. HISTORY OF PRESENT ILLNESS: The patient is an 87-year-old male who presented to the ER at [facility] on August 16, 2017 with chief complaints of increasing shortness of breath along with some confusion. With these symptoms, the patient has been evaluated by the ER physician. Patient did have a chest x-ray, which did show slight increased right perihilar infiltrate compared to last exam and did indicate progression of his tumor. No overt heart failure. The patient has been afebrile throughout his hospital stay at this facility. Did have slight elevated white count 13.8 that did come down to 12.5 on August 21. No blood work was done since then. It was rechecked last night and shows a white count of 33.7 that prompted infectious disease consultation. At the same time, the patient did have a blood culture which is currently pending. He did have a large bowel movement yesterday followed by some loose stool. The stool for C difficile was requested by myself which came back to be negative. The patient seems to be weak, lethargic and obtunded at the time of my evaluation this morning and was unable to provide any history. His breathing seemed to be comfortable though, in no respiratory distress and no significant coughing has been noticed. The patient did have a CT of the chest done yesterday which did show multiple pulmonary abnormalities with cavitating masses consistent with metastatic disease. No significant change compared to last exam. Abdominal x-rays did show no acute abdomen, cavity in the right mid lung. All of this information has been obtained from review of the chart, talking with the staff as the patient himself is unable to provide any reliable history at this point to me. REVIEW OF SYSTEMS: Could not be reliably obtained. The positive points have been mentioned in HPI. PAST MEDICAL HISTORY: Significant for diabetes mellitus, elevated lipids, hyperlipidemia, hypertension , history of liver abscess, prostate disorder, skin cancer and lung cancer. PAST SURGICAL HISTORY: Appendectomy, cholecystectomy, hernia repair, pacemaker placement and tonsillectomy. SOCIAL HISTORY: Remote history of smoking. No drinking or drug use. FAMILY HISTORY: Mother with history of leukemia. ALLERGIES: TO STATINS, IODINATED CONTRAST DYE. MEDICATIONS: The patient is currently on [place], DuoNeb, aspirin, vitamin B12, iron sulfate, Flonase, folic acid, Lasix, Neurontin, NovoLog, Levemir, Synthroid, Zestril, Claritin, Glucophage, Lopressor, Flagyl, Piptazobactam started yesterday. EXAMINATION: Blood pressure is 114/55 with a pulse of 81, temperature of 98. He is 97% on 2 L nasal cannula. General description is an elderly male lying in bed in no distress. No tachypnea or accessory muscles of respiration use. HEENT examination revealed no pallor or scleral icterus. Oral mucous membranes moist. No thrush. Neck trachea central. No thyromegaly. Lungs unlabored breathing. Clear to auscultation anteriorly. No wheeze or crackles. Heart S1, S2. Regular rate and rhythm. No murmur. ABDOMEN: Soft. The patient tender over both upper and lower quadrant areas. No distention noted. No organomegaly. EXTREMITIES: No edema of the feet. Skin examination no rash or mass palpable. Neurologic: The patient orientation could not be done. The patient is lethargic. LABS: Hemoglobin is 12.1, white count 13.2 with a BUN of 73, creatinine is 4.38 with his admission creatinine was 1.50, lactic acid 7.8. DIAGNOSTIC IMPRESSION AND PLAN: Patient with significant elevated white count of 33,000 in a patient also with evidence of a renal failure with elevated creatinine. The patient now noted to be tender on abdominal examination, source likely intraabdominal. There is no evidence of any worsening of his CT of the chest to be suspicious for any worsening cancer or pneumonia responsible for underlying symptomatology. There was a question of possible comfort or hospice related care, which may have been appropriate for this patient rather than put him through further workup. However, the RN was unable to clarify to me that the patient is going to be hospice or needs to have a further workup and treatment. PLAN: 1. We will obtain a CT abdominal and pelvis with oral contrast to better define underlying intraabdominal pathology. 2. Patient will be given Zosyn should cover intra-abdominal pathogen. 3. Depending upon his clinical response as well as cultures, we will adjust the medication further if needed. Thank you for this consultation. We will follow the patient along with you. Overall poor prognosis and hospice may be better option for him at this point. MMODL / IJN: [id number] / [facility]
[2017-08-28 20:50] LABS: Glucose,Whole Blood 112 mg/dL (75-99)
--- NOTE | 2017-08-28 22:38 | PN ---
PROGRESS NOTE SUBJECTIVE: This is a white male with sepsis, metastatic lung cancer. COPD, insulin-dependent diabetes mellitus, systolic CHF. White count is down to 33 still, but a little less confused today, but he keeps his eyes closed and toxin moans. He has discoordination is fading. He states in his hands. He dropped a can of orange juice today on the flow when I was there. Cardiovascular S1-S2. Lungs show scattered wheeze. GI soft. Psych seems sleepy, lethargic. ASSESSMENT: 1. Sepsis metastatic lung cancer. 2. Leukocytosis secondary to sepsis. Continue with IV Zosyn. Await for Infectious Disease consult. 3. Chronic obstructive pulmonary disease. Continue updrafts. 4. Insulin-dependent mellitus. Accu-Chek protocol. 5. Dehydration and slow IV fluids due to elevated lactic acid. 6. Encephalopathy secondary to multifactorial metabolic and toxic. Prognosis poor. MMODL / IJN: [id number] /
[2017-08-28] MEDS: INSULIN DETEMIR 100 UNIT/ML 10 ML VIAL SQ SCH (23:20)
[2017-08-28] MEDS: MONTELUKAST 10 MG TAB PO SCH (23:23)
[2017-08-29] MEDS: MORPHINE SULFATE 4 MG/ML SYRINGE IV PRN (02:47)
[2017-08-29] MEDS: PIPERACILLIN-TAZOBACTAM 3.375 GM in DEXTROSE/WATER 1 50ML.BAG IVPB SCH ×2 (05:31→19:21)
[2017-08-29] MEDS: LEVOTHYROXINE 100 MCG TAB PO SCH (05:35)
--- NOTE | 2017-08-29 05:39 | CT ---
EXAM: CT Abdomen and Pelvis Without Intravenous Contrast CLINICAL HISTORY: 87-year-old male poor historian. Reason: abd pain TECHNIQUE: Axial computed tomography images of the abdomen and pelvis without intravenous contrast. CTDI is 15.9 mGy and DLP is 898.30 mGy-cm. This CT exam was performed using one or more of the following dose reduction techniques: automated exposure control, adjustment of the mA and/or kV according to patient size, and/or use of iterative reconstruction technique. Coronal and sagittal reformatted images were created and reviewed. COMPARISON: No relevant prior studies available. FINDINGS: Lower thorax: Lobulated and rounded areas are noted in the right perihilar region. There addition, soft tissue in the subcarinal region noted adjacent to the esophagus. ABDOMEN: Liver: Unremarkable. Gallbladder and bile ducts: The gallbladder is not identified on this exam. No ductal dilation. Pancreas: Unremarkable. No ductal dilation. Spleen: Unremarkable. No splenomegaly. Adrenals: Unremarkable. No mass. Kidneys and ureters: Kidneys are atrophic in appearance. No calcifications or hydronephrosis. Stomach and bowel: Unremarkable. No obstruction. No mucosal thickening. Appendix: No findings to suggest acute appendicitis. PELVIS: Bladder: Unremarkable. No stones. Reproductive: Unremarkable as visualized. ABDOMEN and PELVIS: Intraperitoneal space: There is stool filling the distal colon with questionable mucosal prominence of the distal descending, sigmoid and rectosigmoid colon. In addition, there is trace free fluid in the anterior right hemipelvis and fat stranding in the left hemipelvis adjacent to the sigmoid colon. No free air. Bones/joints: Multilevel disc spondylosis with vacuum phenomenon at multiple levels of the lumbar spine. Degenerative changes noted. No acute fracture. No dislocation. Soft tissues: Unremarkable. Vasculature: Atherosclerotic calcification of the aorta without dilatation. Lymph nodes: Unremarkable. No enlarged lymph nodes. IMPRESSION: 1. Lobulated and rounded areas are noted in the right perihilar region. There addition, soft tissue in the subcarinal region noted adjacent to the esophagus. Mediastinal and right hilar lymphadenopathy cannot be excluded on this examination. Please correlate clinically. Further evaluation should be considered, if not already performed. 2. There is stool filling the distal colon with questionable mucosal prominence of the distal descending, sigmoid and rectosigmoid colon. In addition, there is trace free fluid in the anterior right hemipelvis and fat stranding in the left hemipelvis adjacent to the sigmoid colon. These findings suggest possible colitis with constipation/obstipation. No evidence for small bowel obstruction. The ascending and transverse colon demonstrates no definite mucosal abnormalities.
[2017-08-29] MEDS: SODIUM CHLORIDE 0.9% 1,000 ML IV SCH ×2 (05:51→17:13)
[2017-08-29] MEDS: IPRATROPIUM-ALBUTEROL 3 ML NEB INHALATION SCH ×4 (07:20→19:18)
[2017-08-29 07:44] LABS: Glucose,Whole Blood 87 mg/dL (75-99)
[2017-08-29 08:25] LABS: Albumin 2.6 g/dL (3.5-5.0); Calcium 8.9 mg/dL (8.4-10.2); Total Bilirubin 0.7 mg/dL (0.2-1.3); Total Protein 5.7 g/dL (6.3-8.2)
[2017-08-29 08:39] LABS: Basophils # (A) 0.1 k/uL (0-0.2); Basophils % (A) 0 %; Eosinophils # (A) 0.1 k/uL (0-0.7); Eosinophils % (A) 0 %; HCT 35.4 % (39.0-53.0); HGB 10.8 gm/dL (13.0-17.5); Hypochromasia Marked; Lymphocytes # (A) 1.7 k/uL (1.0-4.8); Lymphocytes % (A) 6 %; MCH 30.9 pg (25.0-35.0); MCHC 30.6 g/dL (31.0-37.0); MCV 101.2 fL (80.0-100.0); Macrocytosis Slight; Mean Platelet Volume 8.2; Monocytes # (A) 1.6 k/uL (0-1.0); Monocytes % (A) 6 %; Neutrophils % (A) 87 %; Platelet Count 412 k/uL (150-450); RDW 13.7 % (11.5-15.5)
[2017-08-29 08:43] LABS: Potassium 7.5 mmol/L (3.5-5.1)
[2017-08-29 08:46] LABS: WBC 27.6 k/uL (3.8-10.6)
[2017-08-29] MEDS: INSULIN ASPART 100 UNIT/ML 1 ML 10 ML VIAL SQ SCH ×3 (10:07→17:39)
[2017-08-29] MEDS: FERROUS SULFATE 325 MG TAB PO SCH ×2 (10:07→17:30)
[2017-08-29] MEDS: URSODIOL 300 MG CAP PO SCH ×2 (10:08→17:30)
[2017-08-29] MEDS: GABAPENTIN 300 MG CAP PO SCH ×2 (10:08→14:59)
[2017-08-29] MEDS: HEPARIN SODIUM,PORCINE 5,000 UNIT/ML 1 ML VIAL SQ SCH ×2 (10:08→17:16)
[2017-08-29] MEDS: LORATADINE 10 MG TAB PO SCH (10:08)
[2017-08-29] MEDS: FLUTICASONE 50MCG/SPRAY NASAL 16GM EA NOSTRIL SCH (10:08)
[2017-08-29] MEDS: LISINOPRIL 5 MG TAB PO SCH (10:08)
[2017-08-29] MEDS: ASPIRIN 325 MG TAB PO SCH (10:08)
[2017-08-29] MEDS: FUROSEMIDE 80 MG TAB PO SCH ×2 (10:08→14:59)
[2017-08-29] MEDS: metroNIDAZOLE 500 MG TAB PO SCH ×2 (10:09→17:16)
[2017-08-29] MEDS: METOPROLOL TARTRATE 25 MG TAB PO SCH (10:09)
[2017-08-29] MEDS: MAGNESIUM OXIDE 400 MG TAB PO SCH (10:09)
[2017-08-29] MEDS: NYSTATIN 100,000 UNIT/ML SUSP 500,000 UNIT/5 ML CUP PO SCH ×3 (10:09→18:36)
[2017-08-29] MEDS: SENNOSIDES-DOCUSATE SODIUM 1 EACH TAB PO SCH (10:09)
[2017-08-29 11:58] LABS: Glucose,Whole Blood 83 mg/dL (75-99)
[2017-08-29] MEDS: FOLIC ACID 1 MG TAB PO SCH (12:33)
[2017-08-29] MEDS: CYANOCOBALAMIN 500 MCG TAB PO SCH (12:33)
[2017-08-29] MEDS ORDERED: DEXTROSE 50%-WATER 50 ML SYRINGE IVP STA ×2 (16:37→20:37)
[2017-08-29] MEDS ORDERED: INSULIN REGULAR 100 UNIT/ML VIAL IV ONE ×2 (16:55→20:32)
[2017-08-29] MEDS ORDERED: SODIUM CHLORIDE 0.9% 1,000 ML IV ONE (16:56)
[2017-08-29] MEDS ORDERED: SODIUM BICARB 8.4% 50 ML SYR (1 MEQ/ML) IV ONE ×3 (17:00→20:45)
--- NOTE | 2017-08-29 17:05 | PN ---
PROGRESS NOTE DATE OF SERVICE: 08/29/2017 REASON FOR FOLLOWUP: Leukocytosis and possible abdominal infection. INTERVAL HISTORY: The patient is afebrile. He remains lethargic, sleepy, unable to provide a history. No nausea or vomiting has been noted. No oral intake. No further diarrhea per the nursing staff. PHYSICAL EXAMINATION: Blood pressure 113/70 with a pulse of 80, temperature 97.5. He is 93% on room air. General description is an elderly male lying in bed in no distress. RESPIRATORY SYSTEM: Unlabored breathing. Clear to auscultation anteriorly. HEART: S1, S2. Regular rate and rhythm. ABDOMEN: Soft. thaw shed heater tender in the left lower quadrant area. No guarding or rigidity. EXTREMITIES: No edema of the feet. LABS: Hemoglobin 7.9, white count 27.6, BUN of 93, creatinine 5.38. Blood cultures and stool culture have been negative so far. DIAGNOSTIC IMPRESSION AND PLAN: Patient with leukocytosis, multifactorial, with concern about possible abdominal source. CT did show possible colitis. Culture for C difficile has been negative. Now with the white count responding to Zosyn, that will be continued. The patient also has worsening renal failure with a lung metastatic cancer. Hospice may be a better option. Continue supportive care. MMODL / IJN: [id number] /
[2017-08-29 17:28] LABS: Glucose,Whole Blood 152 mg/dL (75-99)
[2017-08-29] MEDS: DEXTROSE 5% IN WATER 1,000 ML with SODIUM BICARB (1 MEQ/ML) 150 ML IV SCH (18:36)
[2017-08-29] MEDS: TAMSULOSIN 0.4 MG CAP.ER.24H PO SCH (19:19)
[2017-08-29] MEDS: SODIUM BICARB 8.4% 50 ML SYR (1 MEQ/ML) IV ONE ×2 (21:45→21:46)
[2017-08-29 22:04] LABS: Glucose,Whole Blood 94 mg/dL (75-99)
[2017-08-29 23:07] LABS: Glucose,Whole Blood 140 mg/dL (75-99)
[2017-08-29 23:57] LABS: Glucose,Whole Blood 124 mg/dL (75-99)
[2017-08-30] MEDS: metroNIDAZOLE 500 MG TAB PO SCH ×4 (01:41→21:57)
[2017-08-30] MEDS: INSULIN DETEMIR 100 UNIT/ML 10 ML VIAL SQ SCH ×2 (01:41→22:12)
[2017-08-30] MEDS: SENNOSIDES-DOCUSATE SODIUM 1 EACH TAB PO SCH ×3 (01:41→20:28)
[2017-08-30] MEDS: INSULIN ASPART 100 UNIT/ML 1 ML 10 ML VIAL SQ SCH ×5 (01:41→22:12)
[2017-08-30] MEDS: MONTELUKAST 10 MG TAB PO SCH ×2 (01:41→20:28)
[2017-08-30] MEDS: GABAPENTIN 300 MG CAP PO SCH ×4 (01:41→21:57)
[2017-08-30] MEDS: HEPARIN SODIUM,PORCINE 5,000 UNIT/ML 1 ML VIAL SQ SCH ×3 (01:42→17:01)
[2017-08-30] MEDS: NYSTATIN 100,000 UNIT/ML SUSP 500,000 UNIT/5 ML CUP PO SCH ×5 (01:42→21:57)
[2017-08-30] MEDS: PIPERACILLIN-TAZOBACTAM 3.375 GM in DEXTROSE/WATER 1 50ML.BAG IVPB SCH ×2 (05:41→17:33)
[2017-08-30] MEDS: LEVOTHYROXINE 100 MCG TAB PO SCH (05:42)
[2017-08-30 07:05] LABS: Glucose,Whole Blood 211 mg/dL (75-99)
[2017-08-30] MEDS: MORPHINE SULFATE 4 MG/ML SYRINGE IV PRN (07:35)
[2017-08-30] MEDS: DEXTROSE 5% IN WATER 1,000 ML with SODIUM BICARB (1 MEQ/ML) 150 ML IV SCH ×2 (07:38→22:13)
[2017-08-30] MEDS: IPRATROPIUM-ALBUTEROL 3 ML NEB INHALATION SCH ×4 (07:57→19:12)
[2017-08-30 08:39] VITALS: RESP 16
[2017-08-30 09:17] LABS: Potassium 5.8 mmol/L (3.5-5.1)
[2017-08-30 09:26] LABS: Basophils % (A) 0 %; Eosinophils % (A) 0 %; HCT 33.4 % (39.0-53.0); HGB 10.6 gm/dL (13.0-17.5); Lymphocytes # (A) 0.9 k/uL (1.0-4.8); Lymphocytes % (A) 6 %; MCH 30.2 pg (25.0-35.0); MCHC 31.6 g/dL (31.0-37.0); Mean Platelet Volume 7.4; Monocytes # (A) 0.9 k/uL (0-1.0); Monocytes % (A) 6 %; Neutrophils # (A) 12.6 k/uL (1.3-7.7); Neutrophils % (A) 86 %; Platelet Count 350 k/uL (150-450); RBC 3.49 m/uL (4.30-5.90); RDW 14.1 % (11.5-15.5); WBC 14.5 k/uL (3.8-10.6)
[2017-08-30 09:38] LABS: MCV 95.7 fL (80.0-100.0)
[2017-08-30 10:47] VITALS: BMI 28.4
--- NOTE | 2017-08-30 11:08 | P.NPCON ---
History of Present Illness - Reason for Consult acute renal failure - History of Present Illness Reason for consultation: Acute kidney injury History of present illness: Patient is a 87-year-old male seen in renal consultation for acute kidney injury. Patient has chronic kidney disease stage III to basic creatinine in the range of 1.2-1.4 secondary to diabetic kidney disease. Patient presented to the hospital on 08/16/2017 with dyspnea and anxiety. He is also noted to have an elevated white count and is currently maintained on antibiotics per infectious disease recommendations. There is concern for colitis. Patient also has history of metastatic lung cancer. His blood pressures have been running low in the systolic 80s to 90s. Yesterday's potassium was 7.5 and bicarb was 10. This was medically treated with sodium bicarbonate IV push along with IV insulin and D50. Potassium level this morning is 5.8. His lactic acid was elevated at 12. Patient is currently resting in bed and is a poor historian. He appears quite lethargic and does not respond to verbal commands. Vital signs are stable. General: The patient appeared well nourished and normally developed. HEENT: Head exam is unremarkable. Neck is without jugular venous distension. LUNGS: Lungs are clear to auscultation and percussion. Breath sounds decreased. HEART: Rate and Rhythm are regular. First and second heart sounds normal. No murmurs, rubs or gallops. ABDOMEN: Abdominal exam reveals normal bowel sounds. Non-tender and non- distended. No evidence of peritonitis. EXTREMITITES: No clubbing, cyanosis, or edema. 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,"spots on lung" back pain, constipation History of Any Multi-Drug Resistant Organisms: None Reported Past Surgical History: Appendectomy, Cholecystectomy, Hernia Repair, Pacemaker, Tonsillectomy Additional Past Surgical History / Comment(s): lana CATARACTS WITH LENS IMPLANT, SKIN CANCER removed from head x3, thoracentesis Past Anesthesia/Blood Transfusion Reactions: No Reported Reaction Type of Cardiac Device: Permanent Pacemaker Device Placement Date:: 08/2015 Past Psychological History: Anxiety, Depression Additional Psychological History / Comment(s): pt staying at private home care givers house. Smoking Status: Former smoker Past Alcohol Use History: None Reported Additional Past Alcohol Use History / Comment(s): started smoking at age 11. 1PPD. QUIT SMOKING AT AGE22. Past Drug Use History: None Reported - Past Family History Mother Family Medical History: No Reported History, Cancer Additional Family Medical History / Comment(s): LEUKEMIA Father Additional Family Medical History / Comment(s): WOUNDED IN WW1, MULTIPLE INJURES -LIVED TILL AGE 89 Brother(s) Family Medical History: Cancer Medications and Allergies Home Medications Medication Instructions Recorded Confirmed Type Aspirin EC [Ecotrin Low Dose] 81 mg PO QA 10/13/14 08/17/17 History Folic Acid 1 mg PO DAILY@1300 10/13/14 08/17/17 History Lisinopril [Zestril] 5 mg PO DAILY 10/13/14 08/17/17 History Potassium Chloride ER [K-Dur 20] 20 meq PO QAM 08/24/15 08/17/17 History metFORMIN HCL 1,000 mg PO BID 02/21/16 08/17/17 History Fluticasone Nasal [place] [Flonase 2 spray EA NOSTRIL DAILY 03/25/16 08/17/17 History Nasal [place]] Magnesium Oxide [Mag-Ox] 400 mg PO 03/25/16 08/17/17 History Tamsulosin [Flomax] 0.4 mg PO 03/25/16 08/17/17 History Gabapentin [Neurontin] 300 mg PO BID 08/11/16 08/17/17 History Metoprolol Tartrate [Lopressor] 25 mg PO 08/11/16 08/17/17 History Ferrous Sulfate [Iron (65 MG 325 mg PO DAILY 11/04/16 08/17/17 History Elemental)] Levothyroxine Sodium [Synthroid] 100 mcg PO DAILY 01/04/17 08/17/17 History Loratadine [Claritin] 10 mg PO DAILY@1300 01/04/17 08/17/17 History Montelukast Sodium [Singulair] 10 mg PO DAILY 04/11/17 08/17/17 History Cyanocobalamin [Vitamin B-12] 500 mcg PO DAILY@1300 05/08/17 08/17/17 History Insulin Aspart [NovoLOG Flexpen] See Protocol SQ AC-TID 05/08/17 08/17/17 History Ubidecarenone [Co Q-10] 200 mg PO DAILY@1300 05/08/17 08/17/17 History Artificial Tears-Hypromellose 1 drops BOTH EYES TID PRN 05/09/17 08/17/17 History [Artificial Tear Drops] Budesonide [Pulmicort] 0.5 mg INHALATION RT-BID 08/17/17 08/17/17 History Budesonide/Formoterol Fumarate 2 puff INHALATION RT-BID 08/17/17 08/17/17 History [Symbicort 160-4.5 Mcg Inhaler] HYDROcodone/APAP 5-325MG [[place] 1 tab PO Q4HR PRN 08/17/17 08/17/17 History 5-325] Ursodiol [Marcos] 250 mg PO HS 08/17/17 08/17/17 History Artificial Tears Ointment 1 applic BOTH EYES TID PRN applic 08/24/17 Rx [Lubrifresh Pm Ointment] Furosemide [Lasix] 80 mg PO BID@0800,1400 tab 08/24/17 Rx Insulin Detemir [Levemir] 35 unit SQ HS syr 08/24/17 Rx Ipratropium-Albuterol Nebulize 3 ml INHALATION RT-QID ampul.neb 08/24/17 Rx [Duoneb 0.5 mg-3 mg/3 ml Soln] Nitroglycerin Sl Tabs [Nitrostat] 0.4 mg SUBLINGUAL Q5M PRN tab 08/24/17 Rx Pantoprazole [Protonix] 40 mg PO AC-BRKFST tablet. 08/24/17 Rx Allergies Allergy/AdvReac Type Severity Reaction Status Date / Time Kbprwzo-Yld-Chc Reductase Allergy Unknown Unknown Verified 08/16/17 23:29 Inhibitor lactose Allergy Nausea Verified 08/16/17 23:29 Iodinated Contrast- Oral and AdvReac shakes Verified 08/16/17 23:29 IV Dye [Iodinated Contrast Media - IV Dye] Physical Exam Vitals: Vital Signs Temp Pulse Pulse Pulse Resp BP BP 08/30/17 08:08 92 08/30/17 07:57 92 08/30/17 07:00 96.6 F L 93 16 111/47 08/29/17 23:00 97.2 F L 86 15 101/49 08/29/17 19:32 88 08/29/17 19:19 96 08/29/17 15:20 84 08/29/17 15:09 88 08/29/17 15:00 96.5 F L 80 16 113/70 08/29/17 12:31 96.4 F L 89 18 98/55 08/29/17 11:20 88 08/29/17 11:11 88 Pulse Ox 08/30/17 08:08 08/30/17 07:57 08/30/17 07:00 95 08/29/17 23:00 97 08/29/17 19:32 08/29/17 19:19 08/29/17 15:20 08/29/17 15:09 08/29/17 15:00 93 L 08/29/17 12:31 08/29/17 11:20 08/29/17 11:11 Intake and Output 08/29/17 08/30/17 08/30/17 22:59 06:59 14:59 Intake Total 850 Output Total 200 Balance 850 -200 Intake: Intake, IV Titration 850 Amount Piperacillin-Tazobactam 3 50 .375 gm In Dextrose/Water 1 50ml.bag @ 12.5 mls/hr IVPB Q12H [facility] Rx#: [id number] Sodium Chloride 0.9% 1, 800 000 ml @ 100 mls/hr IV . Q10H [facility] Rx#:[id number] Output: Urine 200 Other: Voiding Method Incontinent Incontinent Weight 92.5 kg 92.5 kg Patient Weight 08/31/17 06:59 Weight 92.5 kg Results - Lab Results Most recent lab results Calcium 8.0 mg/dL (8.4-10.2) L 08/30/17 08:29 Phosphorus 3.5 mg/dL (2.5-4.5) 08/16/17 23:30 Magnesium 1.8 mg/dL (1.6-2.3) 08/17/17 05:27 08/30/17 08:29 08/30/17 08:29 Assessment and Plan Plan: Assessment: #1. Nonoliguric acute kidney injury secondary to ischemic ATN secondary to sepsis and hypotension. Creatinine up to 5.6 today. #2. Metastatic lung cancer. #3. Sepsis secondary to colitis maintained on antibiotics per infectious disease recommendations. #4. Hyperkalemia secondary to acute kidney injury and metabolic acidosis. Improved with medical management. #5. Metabolic acidosis secondary to acute kidney injury and GI losses. Also noted to have been high lactic acid level. Plan: Continue with isotonic sodium bicarbonate drip to be run at 100 mL an hour. Avoid nephrotoxic agents and hypotensive episodes. I discussed the case with the nurse. It appears that hospice has been consulted and the plan is to be discharged today on hospice. Also no aggressive measures are to be done according to the family. Thank you for the consultation. I will continue to follow the patient with you during his hospital stay.
[2017-08-30 11:58] LABS: Glucose,Whole Blood 295 mg/dL (75-99)
[2017-08-30] MEDS: PANTOPRAZOLE 40 MG TABLET PO SCH (13:07)
[2017-08-30] MEDS: URSODIOL 300 MG CAP PO SCH ×2 (13:07→17:30)
[2017-08-30] MEDS: FUROSEMIDE 80 MG TAB PO SCH ×2 (13:07→14:02)
[2017-08-30] MEDS: FERROUS SULFATE 325 MG TAB PO SCH ×2 (13:07→17:30)
[2017-08-30] MEDS: FLUTICASONE 50MCG/SPRAY NASAL 16GM EA NOSTRIL SCH (13:08)
[2017-08-30] MEDS: MAGNESIUM OXIDE 400 MG TAB PO SCH (13:08)
[2017-08-30] MEDS: LISINOPRIL 5 MG TAB PO SCH (13:08)
[2017-08-30] MEDS: LORATADINE 10 MG TAB PO SCH (13:08)
[2017-08-30] MEDS: METOPROLOL TARTRATE 25 MG TAB PO SCH (13:08)
[2017-08-30] MEDS: ASPIRIN 325 MG TAB PO SCH (13:08)
[2017-08-30] MEDS: POTASSIUM CHLORIDE ER 20 MEQ TAB.ER PO SCH (13:09)
[2017-08-30] MEDS: CYANOCOBALAMIN 500 MCG TAB PO SCH (13:35)
[2017-08-30] MEDS: FOLIC ACID 1 MG TAB PO SCH (13:36)
--- NOTE | 2017-08-30 15:04 | PN ---
PROGRESS NOTE DATE OF SERVICE: 08/30/2017 REASON FOR FOLLOWUP: Leukocytosis, likely abdominal source. INTERVAL HISTORY: The patient is afebrile. He seemed to be hemodynamically stable on the pressor support. Remained to be lethargic, did not answer any questions. No nausea, vomiting or diarrhea per the nursing staff. Oral intake seemed to be poor to none. PHYSICAL EXAMINATION: Blood pressure 111/47 with a pulse of 90, temperature 96.6. He is 95% on 2 L nasal cannula. General description is an elderly male, lying in bed in no distress. RESPIRATORY SYSTEM: Unlabored breathing, clear to auscultation anteriorly. HEART: S1, S2. Regular rate and rhythm. ABDOMEN: Soft, tender in lower quadrant area. No guarding or rigidity. LABS: Hemoglobin is 10.5, white count 14.5 with a BUN of 118, creatinine 5.60. DIAGNOSTIC IMPRESSION AND PLAN: Patient with leukocytosis with elevated lactic acid, abdominal tenderness, likely abdominal source with evidence of colitis on CT. No evidence of any drainable abscess. White count responded to Zosyn. Plan for possible hospice which may be appropriate for him. Antibiotic can be safely discontinued. Continue supportive care. MMODL / IJN: [id number] /
[2017-08-30 17:01] LABS: Glucose,Whole Blood 336 mg/dL (75-99)
[2017-08-30] MEDS: TAMSULOSIN 0.4 MG CAP.ER.24H PO SCH (18:47)
[2017-08-30 20:20] LABS: Glucose,Whole Blood 328 mg/dL (75-99)
--- NOTE | 2017-08-30 23:52 | PN ---
PROGRESS NOTE DATE OF SERVICE: 08/29/2017 SUBJECTIVE: An 87-year-old white male who has become obtunded and delirious. He has had worsening renal function into the 5's today. Renal consult is pending. Infectious Disease has got him on IV Zosyn for possible bowel infection versus abdominal infection due to elevated lactic acid. His potassium is high. Awaiting renal physician's recommendations. HEART: Regular rate and rhythm. Abdomen is soft. PSYCH: Alert oriented x0. HEAD: Normocephalic atraumatic. He has a bandage on his head and over a squamous cell carcinoma area. NEUROLOGIC: Generalized weakness. He has a Ortiz in place as well as a stool Ortiz tube. ASSESSMENT: 1. Metastatic lung cancer. 2. Nonoliguric acute renal injury secondary to ischemic acute tubular necrosis. 3. Hypotension. 4. Sepsis. 5. Hyperkalemia. 6. Metabolic acidosis. Fluids will be maintained. Renal physician consult, infectious disease consult. Hospice is supposed to be here to take over the case per guardian's recommendations. Will continue maintaining current care until hospice takes over. MMODL / IJN: [id number] /
--- NOTE | 2017-08-31 | PN ---
PROGRESS NOTE SUBJECTIVE: An 87-year-old white male admitted with generalized debility. He has metastatic lung cancer. He is being placed into hospice. He continues to remain on broad-spectrum antibiotics for leukocytosis from an abdominal source. He has profuse diarrhea. He still has a rectal tube in. He has dehydration and renal insufficiency with creatinine into the 5's. He has been placed on 100 mL an hour with bicarb per renal physician. He is 95% on 2L. Blood pressure 111/47, pulse 90, temp 96.6. Lungs are clear. HEART: S1, S2. Abdomen is tender in the lower quadrants. No guarding. No rigidity. LABS: Show hemoglobin 10.5, white count 14.5. BUN 118, creatinine 5.6. He has leukocytosis, elevated lactic acid, abdominal tenderness, possible colitis. White count is responding to Zosyn. He may be going to hospice. If he does, Zosyn will be discontinued per Infectious Disease. Possible discharge tomorrow. MMODL / IJN: [id number] /
[2017-08-31] MEDS: MORPHINE SULFATE 4 MG/ML SYRINGE IV PRN ×3 (01:49→07:54)
[2017-08-31] MEDS: HEPARIN SODIUM,PORCINE 5,000 UNIT/ML 1 ML VIAL SQ SCH ×2 (01:49→07:56)
[2017-08-31] MEDS: PIPERACILLIN-TAZOBACTAM 3.375 GM in DEXTROSE/WATER 1 50ML.BAG IVPB SCH (05:21)
[2017-08-31] MEDS: LEVOTHYROXINE 100 MCG TAB PO SCH (05:39)
[2017-08-31] MEDS: DEXTROSE 5% IN WATER 1,000 ML with SODIUM BICARB (1 MEQ/ML) 150 ML IV SCH (05:39)
[2017-08-31 07:10] LABS: Glucose,Whole Blood 199 mg/dL (75-99)
[2017-08-31] MEDS: URSODIOL 300 MG CAP PO SCH (07:35)
[2017-08-31] MEDS: PANTOPRAZOLE 40 MG TABLET PO SCH (07:35)
[2017-08-31] MEDS: FERROUS SULFATE 325 MG TAB PO SCH (07:35)
[2017-08-31] MEDS: FUROSEMIDE 80 MG TAB PO SCH (07:36)
[2017-08-31] MEDS: LISINOPRIL 5 MG TAB PO SCH (07:37)
[2017-08-31] MEDS: ASPIRIN 325 MG TAB PO SCH (07:37)
[2017-08-31] MEDS: LORATADINE 10 MG TAB PO SCH (07:37)
[2017-08-31] MEDS: GABAPENTIN 300 MG CAP PO SCH (07:37)
[2017-08-31] MEDS: MAGNESIUM OXIDE 400 MG TAB PO SCH (07:38)
[2017-08-31] MEDS: FLUTICASONE 50MCG/SPRAY NASAL 16GM EA NOSTRIL SCH (07:38)
[2017-08-31] MEDS: METOPROLOL TARTRATE 25 MG TAB PO SCH (07:38)
[2017-08-31] MEDS: metroNIDAZOLE 500 MG TAB PO SCH (07:39)
[2017-08-31] MEDS: SENNOSIDES-DOCUSATE SODIUM 1 EACH TAB PO SCH (07:39)
[2017-08-31] MEDS: POTASSIUM CHLORIDE ER 20 MEQ TAB.ER PO SCH (07:39)
[2017-08-31] MEDS: NYSTATIN 100,000 UNIT/ML SUSP 500,000 UNIT/5 ML CUP PO SCH ×2 (07:39→11:56)
[2017-08-31 07:44] LABS: Basophils % (A) 0 %; Eosinophils # (A) 0.1 k/uL (0-0.7); Eosinophils % (A) 1 %; HCT 33.4 % (39.0-53.0); HGB 10.6 gm/dL (13.0-17.5); Lymphocytes # (A) 1.1 k/uL (1.0-4.8); Lymphocytes % (A) 8 %; MCH 30.4 pg (25.0-35.0); MCHC 31.6 g/dL (31.0-37.0); Mean Platelet Volume 7.2; Monocytes # (A) 0.8 k/uL (0-1.0); Monocytes % (A) 6 %; Neutrophils # (A) 11.1 k/uL (1.3-7.7); Neutrophils % (A) 84 %; Platelet Count 316 k/uL (150-450); RBC 3.48 m/uL (4.30-5.90); RDW 14.1 % (11.5-15.5); WBC 13.3 k/uL (3.8-10.6)
[2017-08-31] MEDS: IPRATROPIUM-ALBUTEROL 3 ML NEB INHALATION SCH ×2 (07:50→11:30)
[2017-08-31] MEDS: INSULIN ASPART 100 UNIT/ML 1 ML 10 ML VIAL SQ SCH ×2 (07:54→11:54)
[2017-08-31] MEDS ORDERED: LORazepam 2 MG/ML INJ IV PRN (07:57)
[2017-08-31] MEDS ORDERED: SCOPOLAMINE 1.5MG/72HR PATCH TRANSDERM SCH (08:00)
[2017-08-31 08:07] VITALS: BP 110/52; TEMP 97.5
[2017-08-31 08:18] LABS: Albumin 2.4 g/dL (3.5-5.0); Calcium 8.3 mg/dL (8.4-10.2); Magnesium 2.7 mg/dL (1.6-2.3); Phosphorus 4.2 mg/dL (2.5-4.5); Potassium 4.4 mmol/L (3.5-5.1); Total Bilirubin 0.5 mg/dL (0.2-1.3); Total Protein 5.3 g/dL (6.3-8.2)
--- NOTE | 2017-08-31 10:44 | DS ---
DISCHARGE SUMMARY DISCHARGE MEDICATIONS: 1. DuoNeb updraft q.i.d. 2. Aspirin 325 daily. 3. Lasix 80 mg p.o. b.i.d. 4. Neurontin 300 t.i.d. 5. Heparin 5000 units subcutaneous every 8 hours. 6. [place] 5/325 every 4 hours p.r.n. 7. Accu-Chek protocol with NovoLog. 8. Synthroid 100 mcg daily. 9. Zestril 5 mg daily. 10.Ativan 1 mg every 4 to 6 hours p.r.n. 11.Lopressor 25 daily. 12.Flagyl 500 t.i.d. 13.Singular 10 mg daily. 14.He has been getting morphine 4 mg IV every 5 minutes p.r.n. for pain. 15.Nitroglycerin sublingual p.r.n. 16.Scopolamine patch 1.5 mg. 17.Flomax every 72 hours. 18.Flomax 0.4 daily. 19. 300 mg b.i.d. with meals. I expect him to go with hospice care. He has not be eating at this time or taking any pills. He is confused and delirious. He has been seen by a renal physician, sausage wrapper, forepart laster, infectious disease doctors. He has had a intraabdominal sepsis while he was here, treated with IV Zosyn and responded with a white count of 33 down to 15 on discharge. Infectious disease put him on oral Flagyl and will stop Zosyn on discharge. Expect him to go into hospice care, but with typical hospice orders he will go off his medications when he gets up to where he is going, [facility] under hospice care as he is unable to swallow at this time due to confusion. DIAGNOSES: 1. Acute tubular necrosis. 2. Intraabdominal sepsis. 3. Metastatic lung cancer. 4. Metabolic encephalopathy. 5. Diabetes mellitus. 6. Hypertension. 7. Coronary artery disease. 8. Hypothyroidism. 9. Diabetic neuropathy. 10.Coronary artery disease. 11.Chronic obstructive pulmonary disease. PROGNOSIS: Extremely poor, he is going into hospice care at this time. MMODL / IJN: [id number] /
--- NOTE | 2017-08-31 11:16 | P.PN ---
Subjective Patient is seen in follow-up for acute kidney injury on chronic kidney disease. Patient has chronic kidney disease stage III secondary to diabetic kidney disease with baseline creatinine in the range of 1.2-1.4. Creatinine was 5.6 yesterday and is down to 3.99 today. Patient was noted to urinary retention and now has a Ortiz catheter in place. He is nonoliguric. He is currently resting in bed and is quite lethargic. Daughter is present at bedside. Oral intake is poor. Vital signs are stable. General: The patient appeared well nourished and normally developed. HEENT: Head exam is unremarkable. Neck is without jugular venous distension. LUNGS: Lungs are clear to auscultation and percussion. Breath sounds decreased. HEART: Rate and Rhythm are regular. First and second heart sounds normal. No murmurs, rubs or gallops. ABDOMEN: Abdominal exam reveals normal bowel sounds. Non-tender and non- distended. No evidence of peritonitis. EXTREMITITES: No clubbing, cyanosis, or edema. Objective - Vital Signs Vital signs: Vital Signs Temp 97.5 F L 08/31/17 07:00 Pulse 92 08/31/17 08:01 Resp 16 08/31/17 07:00 BP 110/52 08/31/17 07:00 Pulse Ox 99 08/31/17 07:00 Intake & Output 08/30/17 08/31/17 08/31/17 18:59 06:59 18:59 Intake Total 0 850 Output Total 1000 3900 Balance -1000 -3050 Weight 92.5 kg 90 kg Intake: Intake, IV Titration 850 Amount Dextrose 5% in Water 1, 800 000 ml @ 100 mls/hr IV . [id number] [facility] with Sodium Bicarb (1 Meq/ml) 150 ml Rx#:[id number] Piperacillin-Tazobactam 3 50 .375 gm In Dextrose/Water 1 50ml.bag @ 12.5 mls/hr IVPB Q12H [facility] Rx#: [id number] Oral 0 Output: Urine 1000 3900 Other: Voiding Method Urinal Indwelling Catheter Indwelling Catheter Incontinent - Labs CBC & Chem 7: 08/31/17 07:16 08/31/17 07:16 Labs: Abnormal Lab Results - Last 24 Hours (Table) 08/30/17 08/30/17 08/30/17 Range/Units 11:56 17:00 20:18 WBC (3.8-10.6) k/uL RBC (4.30-5.90) m/uL Hgb (13.0-17.5) gm/dL Hct (39.0-53.0) % Neutrophils # (1.3-7.7) k/uL Sodium (137-145) mmol/L Chloride (98-107) mmol/L Carbon Dioxide (22-30) mmol/L BUN (9-20) mg/dL Creatinine (0.66-1.25) mg/dL Glucose (74-99) mg/dL POC Glucose (mg/dL) 295 H 336 H 328 H (75-99) mg/dL Calcium (8.4-10.2) mg/dL Magnesium (1.6-2.3) mg/dL Alkaline Phosphatase (38-126) U/L Total Protein (6.3-8.2) g/dL Albumin (3.5-5.0) g/dL 08/31/17 08/31/17 08/31/17 Range/Units 07:09 07:16 07:16 WBC 13.3 H (3.8-10.6) k/uL RBC 3.48 L (4.30-5.90) m/uL Hgb 10.6 L (13.0-17.5) gm/dL Hct 33.4 L (39.0-53.0) % Neutrophils # 11.1 H (1.3-7.7) k/uL Sodium 146 H (137-145) mmol/L Chloride 97 L (98-107) mmol/L Carbon Dioxide 36 H (22-30) mmol/L BUN 105 H* (9-20) mg/dL Creatinine 3.99 H (0.66-1.25) mg/dL Glucose 200 H (74-99) mg/dL POC Glucose (mg/dL) 199 H (75-99) mg/dL Calcium 8.3 L (8.4-10.2) mg/dL Magnesium 2.7 H (1.6-2.3) mg/dL Alkaline Phosphatase 171 H (38-126) U/L Total Protein 5.3 L (6.3-8.2) g/dL Albumin 2.4 L (3.5-5.0) g/dL Microbiology - Last 24 Hours (Table) 08/27/17 12:50 Blood Culture - Preliminary Blood No Growth after 72 hours 08/27/17 19:38 Blood Culture - Preliminary Blood No Growth after 72 hours 08/27/17 19:30 Stool Culture - Preliminary Stool Assessment and Plan Plan: Assessment: #1. Nonoliguric acute kidney injury secondary to ischemic ATN secondary to sepsis and hypotension. Also component of urinary retention. Creatinine peaked at 5.6 and is down to 3.99 today. #2. Metastatic lung cancer. #3. Sepsis secondary to colitis maintained on antibiotics per infectious disease recommendations. #4. Hyperkalemia secondary to acute kidney injury and metabolic acidosis. Improved with medical management. #5. Metabolic acidosis secondary to acute kidney injury and GI losses. Also noted to have been high lactic acid level. Resolved. #6. Mild hypernatremia secondary to lack of water intake. Plan: Discontinue sodium bicarbonate drip. Start half normal saline to be run at 50 mL an hour. Avoid nephrotoxic agents and hypotensive episodes. I discussed the case with the nurse. It appears that hospice has been consulted and the plan is to be discharged today on hospice. Also no aggressive measures are to be done according to the family.
[2017-08-31] MEDS ORDERED: SODIUM CHLORIDE 0.45% 1,000 ML IV SCH (11:30)
[2017-08-31 11:39] LABS: Glucose,Whole Blood 140 mg/dL (75-99)
[2017-08-31 11:40] VITALS: PULSE 92
--- NOTE | 2017-08-31 14:05 | PN ---
PROGRESS NOTE DATE OF SERVICE: 08/31/2016. REASON FOR FOLLOWUP: Leukocytosis, elevated lactic acid likely abdominal source. INTERVAL HISTORY: The patient is afebrile. He is hemodynamically stable not requiring any pressor support. No significant oral intake. No nausea, vomiting or diarrhea present at this time. EXAMINATION: Blood pressure 110/52 with a pulse of 90, temperature 98.5. He is 90% on room air. General description is elderly male, lying in bed in no distress. RESPIRATORY SYSTEM: Unlabored breathing. Clear to auscultation anteriorly. HEART: S1, S2. Regular rate and rhythm. ABDOMEN: Soft, mildly distended. No guarding or rigidity. LABS: White count 13.3, BUN 105, creatinine 3.99. Blood cultures have been negative. DIAGNOSTIC IMPRESSION AND PLAN: Patient with leukocytosis, elevated lactic acid, concern for possible abdominal source. The patient did have abdominal tenderness and evidence of colitis on the CT without abdominal abscess. Currently on Zosyn and Flagyl. The white count is down to 13. Patient may possibly go to hospice and in that case antibiotic can be safely discontinued. Continue supportive care. MMODL / IJN: [id number] /
== END 2017-08-31 14:40 | DRG 70 ==
LOC: EC 23:13 → 6SEL 08-17 00:41 → EEVIPCON 08-17 00:41 → 6SEL 08-17 01:32 → 5MS5E 08-21 23:13
PROVIDERS: ADMIT Family Medicine; ATTEND Family Medicine
DX: G93.41 Metabolic encephalopathy (principal); N17.0 Acute kidney failure with tubular necrosis; A41.9 Sepsis, unspecified organism; C79.51 Secondary malignant neoplasm of bone; C78.02 Secondary malignant neoplasm of left lung; C78.01 Secondary malignant neoplasm of right lung; E44.0 Moderate protein-calorie malnutrition; I13.0 Hypertensive heart and chronic kidney disease with heart failure and stage 1 through stage 4 chronic kidney disease, or unspecified chronic kidney disease; E83.42 Hypomagnesemia; E87.0 Hyperosmolality and hypernatremia; E87.2 Acidosis; I50.32 Chronic diastolic (congestive) heart failure; J44.1 Chronic obstructive pulmonary disease with (acute) exacerbation; F03.91 Unspecified dementia, unspecified severity, with behavioral disturbance; F05 Delirium due to known physiological condition; J45.901 Unspecified asthma with (acute) exacerbation; I48.92 Unspecified atrial flutter; E11.22 Type 2 diabetes mellitus with diabetic chronic kidney disease; E87.5 Hyperkalemia; E86.0 Dehydration; I95.9 Hypotension, unspecified; N18.3 Chronic kidney disease, stage 3 (moderate); I35.0 Nonrheumatic aortic (valve) stenosis; Z66 Do not resuscitate; Z51.5 Encounter for palliative care; K52.9 Noninfective gastroenteritis and colitis, unspecified; K12.1 Other forms of stomatitis; F32.9 Major depressive disorder, single episode, unspecified; I25.10 Atherosclerotic heart disease of native coronary artery without angina pectoris; K21.9 Gastro-esophageal reflux disease without esophagitis; E78.5 Hyperlipidemia, unspecified; E03.9 Hypothyroidism, unspecified; F41.9 Anxiety disorder, unspecified; M19.91 Primary osteoarthritis, unspecified site; G47.33 Obstructive sleep apnea (adult) (pediatric); K44.9 Diaphragmatic hernia without obstruction or gangrene; K59.00 Constipation, unspecified; D50.9 Iron deficiency anemia, unspecified; M54.9 Dorsalgia, unspecified; R33.9 Retention of urine, unspecified; N42.9 Disorder of prostate, unspecified; S00.03XA Contusion of scalp, initial encounter; E66.9 Obesity, unspecified; Z68.28 Body mass index [BMI] 28.0-28.9, adult; R45.6 Violent behavior; Z79.82 Long term (current) use of aspirin; Z79.4 Long term (current) use of insulin; Z79.51 Long term (current) use of inhaled steroids; Z79.899 Other long term (current) drug therapy; Z87.891 Personal history of nicotine dependence; Z90.49 Acquired absence of other specified parts of digestive tract; Z85.828 Personal history of other malignant neoplasm of skin; Z98.42 Cataract extraction status, left eye; Z98.41 Cataract extraction status, right eye; Z96.1 Presence of intraocular lens; Z87.01 Personal history of pneumonia (recurrent); Z88.8 Allergy status to other drugs, medicaments and biological substances; Z91.041 Radiographic dye allergy status; Z91.011 Allergy to milk products; Z95.0 Presence of cardiac pacemaker; Z92.3 Personal history of irradiation
CPT/HCPCS: 36415; 70450; 71046; 71250; 74019; 74176; 80048; 80053; 80061; 81003; 82272; 82550; 82553; 83036; 83605; 83690; 83735; 83880; 84100; 84132; 84484; 85025; 85027; 85610; 85730; 87040; 87045; 87046; 87086; 87324; 87502; 89055; 93005; 93306; 94640; 94760; 96361; 96365; 99285